=== PATIENT | male | born 1940 | race African-American/Black ===

== ENCOUNTER 2017-03-17 14:33 | Inpatient (IN) | payer OTHER ==
--- NOTE | 2017-03-17 15:01 | PDOC ---
History of Present Illness - General History Source: Patient Exam Limitations: No Limitations - History of Present Illness Initial Comments: 03/17/17 16:40 The patient is a 76 year old male, with a significant past medical history of CHF, HTN, HLD, Atrial Fibrillation, Morbid obesity, Prostate CA, Sleep apnea on O2, Glaucoma BIBA from [facility] s/p Cardiac arrest. As per EMS, the patient was initially seated in PT doing leg exercises when he became unresponsive. Patient was brought back into his room in the [place] and chest compressions were initiated by nursing staff. Down time was between 4-5 minutes. patient was shocked once and ROSC was noted. As per EMS, patient was given 150 mg of Amiodarone in field and was brought into the ED for further evaluation. Upon arrival to the ED, patients (health care proxy) gave consent to intubate over the telephone. 2:48 PM- 20 mg of Etomidate given through IV 2:49 PM- 150 mg of Succinylcholine given through IV 2:50 PM- Patient intubated with 7.5 ET tube, positioned 24 cm at the lip <Kenyatta Reynolds - Last Filed: 03/17/17 17:06> - General History Source: EMS Exam Limitations: Clinical Condition <Faby Saleem - Last Filed: 03/24/17 10:59> - General Chief Complaint: Cardiac Arrest Stated Complaint: RESPIRATORY DISTRESS Time Seen by Provider: 03/17/17 14:40 Past History <Kenyatta Reynolds - Last Filed: 03/17/17 17:06> - Psycho/Social/Smoking Cessation Hx Suicidal Ideation: No Smoking History: Unknown if ever smoked Information on smoking cessation initiated: No Hx Alcohol Use: No Drug/Substance Use Hx: No <Faby Saleem - Last Filed: 03/24/17 10:59> - Past Medical History Allergies/Adverse Reactions: Allergies Allergy/AdvReac Type Severity Reaction Status Date / Time No Known Allergies Allergy Verified 03/17/17 14:59 Home Medications: Ambulatory Orders Allopurinol 300 mg PO DAILY 03/17/17 Digoxin [Lanoxin -] 0.125 mg PO DAILY 03/17/17 Docusate Sodium [Colace -] 300 mg PO HS 03/17/17 Ferrous Sulfate 650 mg PO BID 03/17/17 Furosemide [Lasix -] 80 mg PO DAILY 03/17/17 Latanoprost 0.005% Eye Drops [Xalatan 0.005% Eye Drops -] 1 drop OU HS 03/17/17 Metolazone [Zaroxolyn -] 2.5 mg PO AM 03/17/17 Nystatin Cream [Mycostatin] 1 applic TP BID 03/17/17 Polyethylene Glycol 3350 [Miralax (For Daily Use) -] 17 gm PO DAILY 03/17/17 Sennosides [Evac-U-Gen] 2 tab PO DAILY 03/17/17 Simvastatin [Zocor -] 80 mg PO HS 03/17/17 Sod Lactate/Amm Lact/Pot Lact [Amlactin Ultra Body Cream] 1 applic TP BID Triamcinolone 0.1% Cream [Aristocort] 1 applic TP BID 03/17/17 Warfarin Na [Coumadin -] 7.5 mg PO Q7D 03/17/17 Warfarin Sodium [Coumadin] 5 mg PO ASDIR 03/17/17 Review of Systems - Review of Systems Able to Perform ROS?: No Comments:: 03/17/17 16:40 Unable to obtain ROS due to clinical condition. <Kenyatta Reynolds - Last Filed: 03/17/17 17:06> *Physical Exam - Vital Signs Last Vital Signs Temp Pulse Resp BP Pulse Ox 97.7 F 100 H 20 112/76 100 03/17/17 15:30 03/17/17 16:34 03/17/17 16:34 03/17/17 16:34 03/17/17 16:34 - Physical Exam Comments: 03/17/17 16:41 GENERAL: +Unresponsive. + Intubated with 7.5 ET tube. +Sedated. HEAD: Normal with no signs of trauma. EYES: + Pupils sluggishly responsive. Sclera anicteric, conjunctiva clear. ENT: Ears normal, nares patent, oropharynx clear without exudates. Moist mucous membranes. NECK: Normal range of motion, supple without lymphadenopathy, JVD, or masses. LUNGS: + Breathing spontaneous with eyes open. + Decreased breath sounds. Clear to auscultation bilaterally. No wheezes, and no crackles. HEART:Regular rate and rhythm, normal S1 and S2 without murmur, rub or gallop. ABDOMEN: Soft, nontender, normoactive bowel sounds. No guarding, no rebound. EXTREMITIES: +Bilateral LE diffusely edematous. +Bilateral venous stasis changes. Normal range of motion. No clubbing or cyanosis. No erythema, or tenderness. NEUROLOGICAL: Cranial nerves II through XII grossly intact. No focal neurological deficits. MUSCULOSKELETAL: Back nontender to palpation, no CVA tenderness SKIN: Warm, Dry, normal turgor, no rashes or lesions noted. <Kenyatta Reynolds - Last Filed: 03/17/17 17:06> - Vital Signs Last Vital Signs Temp Pulse Resp BP Pulse Ox 97.5 F L 82 22 109/72 93 L 03/17/17 14:34 03/17/17 14:34 03/17/17 14:34 03/17/17 14:34 03/17/17 14:34 <Faby Saleem - Last Filed: 03/24/17 10:59> Procedures - Intubation Time of Intubation: 14:50 Intubation Method: orotracheal Blade used: Mac Tube Size (Fr): 7.5 Medications: Etomidate, Succinylcholine Tube position @ lip (cm): 24 Tube position confirmed by: Direct visualization Breath Sounds after Intubation: equal Intubation Complications: no complications Post Intubation Xray: Yes <Faby Saleem - Last Filed: 03/24/17 10:59> Heart Score/ECG Review #1 ECG reviewed & interpreted by me at: 15:23 03/17/17 15:23 Paced at 89 bpm <Faby Saleem - Last Filed: 03/24/17 10:59> ED Treatment Course - LABORATORY CBC & Chemistry Diagram: 03/17/17 14:55 03/17/17 14:55 - ADDITIONAL ORDERS Additional order review: Laboratory Results 03/17/17 03/17/17 03/17/17 14:59 14:59 14:55 Sodium Potassium Chloride Carbon Dioxide Anion Gap BUN Creatinine Creat Clearance w eGFR Random Glucose Lactic Acid 1.556 Calcium Phosphorus Magnesium Total Bilirubin AST ALT Alkaline Phosphatase Creatine Kinase Troponin I B-Natriuretic Peptide Total Protein Albumin Urine Color Yellow Urine Appearance Slcloudy Urine pH 5.0 Ur Specific [place] 1.012 Urine Protein Negative Urine Glucose (UA) Negative Urine Ketones Negative Urine Blood Negative Urine Nitrite Negative Urine Bilirubin Negative Urine Urobilinogen Negative Ur Leukocyte Esterase Negative Opiates Screen Negative Methadone Screen Negative Barbiturate Screen Negative Phencyclidine Screen Negative Ur Amphetamines Screen Negative MDMA (Ecstasy) Screen Negative Benzodiazepines Screen Negative Cocaine Screen Negative U Marijuana (THC) Screen Negative 03/17/17 03/17/17 14:55 14:55 Sodium 138 Potassium 5.9 H Chloride 102 Carbon Dioxide 28 Anion Gap 8 BUN 101 H Creatinine 2.9 H Creat Clearance w eGFR 21.15 Random Glucose 162 H Lactic Acid Calcium 8.0 L Phosphorus 5.1 H Magnesium 3.6 H Total Bilirubin 0.3 AST 45 H ALT 13 Alkaline Phosphatase 67 Creatine Kinase 149 Troponin I 0.03 B-Natriuretic Peptide 6514.39 H Total Protein 7.1 Albumin 3.2 L Urine Color Urine Appearance Urine pH Ur Specific [place] Urine Protein Urine Glucose (UA) Urine Ketones Urine Blood Urine Nitrite Urine Bilirubin Urine Urobilinogen Ur Leukocyte Esterase Opiates Screen Methadone Screen Barbiturate Screen Phencyclidine Screen Ur Amphetamines Screen MDMA (Ecstasy) Screen Benzodiazepines Screen Cocaine Screen U Marijuana (THC) Screen 03/17/17 14:55 RBC 3.80 L MCV 86.9 MCHC 30.4 L RDW 19.6 H MPV 9.0 Neutrophils % 56.4 Lymphocytes % 33.8 Monocytes % 5.3 Eosinophils % 3.3 Basophils % 1.2 - Medications Given in the ED: ED Medications Discontinued Medications Generic Name Dose Route Start Last Admin Trade Name Brodieq PRN Reason Stop Dose Admin Etomidate 20 mg 03/17/17 15:21 03/17/17 14:48 Amidate - IVPUSH 03/17/17 15:22 20 mg ONCE ONE Administration Sodium Chloride 1,000 mls @ 1,000 mls/hr 03/17/17 15:21 03/17/17 15:00 Normal Saline - IV 03/17/17 16:20 1,000 mls/hr ASDIR STA Administration Succinylcholine Chloride 150 mg 03/17/17 15:21 03/17/17 14:49 Quelicin - IVPUSH 03/17/17 15:22 150 mg ONCE ONE Administration <Kenyatta Reynolds - Last Filed: 03/17/17 17:06> - LABORATORY CBC & Chemistry Diagram: 03/24/17 05:30 03/24/17 05:30 <Faby Saleem - Last Filed: 03/24/17 10:59> Medical Decision Making - Critical Care Time Total Critical Care Time (minutes): 120 Critical Care Statement: The care of this patient involved high complexity decision making to prevent further life threatening deterioration of the patient 's condition and/or to evalute & treat vital organ system(s) failure or risk of failure. - Medical Decision Making A portion of this note was documented by scribe services under my direction. I have reviewed the details of the note, within reason, and agree with the documentation with the following case summary and management plan written by me. Nursing documentation reviewed and incorporated into medical decision making Pt brought in to the ER via EMS s/p cardiac arrest Pt was in physical therapy while doing leg exercises, he collapsed He was brought to his room doing compressions The 03/17/17 14:56 Call placed to pt No response Message left Call placed to senior care pt nurse states, he is FULL CODE Pt intubated via DL Call placed to ICU/Dr Forde Pt is a candidate for cooling single attempt Bilateral breath sounds appreciated (+) color change of capnography PT BP low Will bolus Will re assess Going to CT of head Call placed to Dr Forde again Would like paced interrogated 03/17/17 15:39 Call placed to [employer] They do not have record of this patient 03/17/17 15:42 03/17/17 15:45 Call placed to pt cut out machine operator (Dr Pat Flores: [phone]) Received call back from [employer] rep, he is no Easi[employer] Credit Card To Get Approved For 03/17/17 16:14 Laboratory Tests 03/17/17 03/17/17 03/17/17 14:55 14:55 14:55 WBC 5.9 Hgb 10.1 L Hct 33.1 L Plt Count 146 Neutrophils % 56.4 Lymphocytes % 33.8 Sodium 138 Potassium 5.9 H Chloride 102 Carbon Dioxide 28 Anion Gap 8 BUN 101 H Creatinine 2.9 H Random Glucose 162 H Lactic Acid Phosphorus 5.1 H Magnesium 3.6 H Creatine Kinase 149 Troponin I 0.03 B-Natriuretic Peptide 6514.39 H 03/17/17 14:55 WBC Hgb Hct Plt Count Neutrophils % Lymphocytes % Sodium Potassium Chloride Carbon Dioxide Anion Gap BUN Creatinine Random Glucose Lactic Acid 1.556 Phosphorus Magnesium Creatine Kinase Troponin I B-Natriuretic Peptide Per discussion with this patient's cut out machine operator RV dysfunctional, pulmonary hypertension Non ischemic coronaries Severe CHF Pt has poor quality of life During last admission, had discussion about palliative care He was given all the information and then opted to not be on palliative care 03/17/17 16:37 CXR: ETT in position, cardiomegaly, large left pleural effusion Pt remains unresponsive Pt coughing , gagging Placed on propofol ICU resident in the ER to see this patient 03/17/17 16:47 I have added fentanyl for sedation <Faby Saleem - Last Filed: 03/24/17 10:59> *DC/Admit/Observation/Transfer - Attestations Scribe Attestion: 03/17/17 16:52 Documentation prepared by Kenyatta Reynolds, acting as medical record librarian for Faby Saleem MD/DO. <Kenyatta Reynolds - Last Filed: 03/17/17 17:06> - Discharge Dispostion Admit: Yes <Faby Saleem - Last Filed: 03/24/17 10:59> Diagnosis at time of Disposition: Cardiac arrest - Discharge Dispostion Condition at time of disposition: Guarded - Referrals
[2017-03-17 15:06] LABS: BASOPHIL 1.2 % (0-2.0); EOSINOPHIL 3.3 % (0-4.5); MCH 26.4 pg (25.7-33.7); MCHC 30.4 g/dl (32.0-35.9); MEAN CELL VOLUME 86.9 fl (80-96); NEUTROPHILS 56.4 % (42.8-82.8); PLATELET COUNT 146 K/MM3 (134-434); RDW 19.6 % (11.9-15.9); WHITE BLOOD COUNT 5.9 K/mm3 (4.0-10.0)
[2017-03-17 15:16] LABS: URINE APPEARANCE SLCLOUDY; URINE BILIRUBIN NEGATIVE (NEGATIVE); URINE BLOOD NEGATIVE (NEGATIVE); URINE COLOR YELLOW; URINE GLUCOSE (UA) NEGATIVE (NEGATIVE); URINE KETONE NEGATIVE (NEGATIVE); URINE LEUK ESTERASE NEGATIVE (NEGATIVE); URINE NITRITE NEGATIVE (NEGATIVE); URINE PROTEIN NEGATIVE (NEGATIVE); URINE UROBILINOGEN NEGATIVE E.U./dl (0.2-1.0)
[2017-03-17 15:21] LABS: URINE MARIJUANA THC NEGATIVE ng/ml (CUTOFF=50)
[2017-03-17] MEDS ORDERED: SODIUM CHLORIDE 1,000 ML IV STA (15:21)
[2017-03-17] MEDS ORDERED: SUCCINYLCHOLINE CHLORIDE 200 MG/10 ML VIAL IVPUSH ONE (15:21)
[2017-03-17] MEDS ORDERED: ETOMIDATE 20 MG/10 ML AMPUL IVPUSH ONE (15:21)
[2017-03-17 15:28] LABS: ALBUMIN 3.2 g/dl (3.4-5.0); BILIRUBIN,TOTAL 0.3 mg/dL (0.2-1.0); COCKROFT - GAULT 40.4; CREATININE 2.9 mg/dL (0.7-1.3); TOT PROT 7.1 g/dl (6.4-8.2)
[2017-03-17 15:30] LABS: TROPONIN I 0.03 ng/ml (0.00-0.05)
[2017-03-17] MEDS: PROPOFOL 100 ML IVPB SCH ×2 (15:30→22:46)
[2017-03-17 15:32] LABS: PHOSPHOROUS 5.1 mg/dL (2.5-4.9)
[2017-03-17] MEDS ORDERED: PROPOFOL 100 ML ONE (15:34)
[2017-03-17 15:36] LABS: MAGNESIUM 3.6 mg/dL (1.8-2.4)
[2017-03-17 16:32] LABS: INR 3.3 (0.82-1.09); PROTHROMBIN TIME (PATIENT) 37.2 SEC (9.98-11.88)
[2017-03-17 16:35] LABS: ACTIVATED PTT 41.1 SECONDS (26.9-34.4)
[2017-03-17] MEDS ORDERED: CALCIUM GLUCONATE 10% - 1,000 MG/10 ML VIAL IVPB ONE (16:35)
[2017-03-17] MEDS ORDERED: FENTANYL INJECTION 500 MCG in DEXTROSE 5%-WATER - 90 ML IVPB SCH ×2 (17:00→17:27)
[2017-03-17] MEDS ORDERED: CALCIUM GLUCONATE 10% - 1,000 MG/10 ML VIAL ONE (17:24)
[2017-03-17] MEDS ORDERED: AMIODARONE HCL INJECTION 450 MG in DEXTROSE 5%-WATER - 241 ML IVPB SCH (17:45)
[2017-03-17] MEDS ORDERED: DOPAMINE 400 MG/D5W - 250 ML IVPB ONE (18:12)
--- NOTE | 2017-03-17 18:14 | CON.CARD ---
[id number] of Present Illness Chief Complaint: Pt is intubated and does not respond to verbal or physical stimuli History of Present Illness: The patient is a 76 year old black male, with a significant past medical history of diastolic CHF (severely reduced RVEF of uncertain etiology; severely dilated RV on 02/2017 ECHO, per pt's dye boarding machine operator at [facility]), (non- obstructive CAD by 2008 coronary angiogram), Medtronic "biventricular pacemaker , COPD, HTN, HLD, Atrial Fibrillation, renal insufficiency, Morbid obesity, Prostate CA, Sleep apnea on O2, generalzied weakness (wheelchair-bound), Glaucoma BIBA from [facility] s/p Cardiac arrest. As per EMS, the patient was initially seated in PT doing leg exercises when he became unresponsive. Patient was brought back into his room in the [place] and chest compressions were initiated by nursing staff. Down time was between 4-5 minutes. patient was shocked once and ROSC was noted. As per EMS, patient was given 150 mg of Amiodarone in the field and was brought into the ED for further evaluation. Upon arrival to the ED, patients (health care proxy) gave consent to intubate over the telephone. 2:48 PM- 20 mg of Etomidate given through IV 2:49 PM- 150 mg of Succinylcholine given through IV 2:50 PM- Patient intubated with 7.5 ET tube, positioned 24 cm at the lip Pt's says pt is followed closely by [facility] and cardiac groups. I spoke by telephone with pt's dye boarding machine operator, who provided much of the above history. 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 Cardio/Vascular: Yes: AFIB, CHF, HTN, Pulmonary Hypertension Pulmonary: Yes: COPD Heme/Onc: Yes: Anemia - Alcohol/Substance Use Hx Alcohol Use: No - Smoking History Smoking history: Unknown if ever smoked - Social History Usual Living Arrangement: With Spouse Home Medications - Allergies Allergies/Adverse Reactions: Allergies Allergy/AdvReac Type Severity Reaction Status Date / Time No Known Allergies Allergy Verified 03/17/17 14:59 - Home Medications Home Medications: Ambulatory Orders Allopurinol 300 mg PO DAILY 03/17/17 Digoxin [Lanoxin -] 0.125 mg PO DAILY 03/17/17 Docusate Sodium [Colace -] 300 mg PO HS 03/17/17 Ferrous Sulfate 650 mg PO BID 03/17/17 Furosemide [Lasix -] 80 mg PO DAILY 03/17/17 Latanoprost 0.005% Eye Drops [Xalatan 0.005% Eye Drops -] 1 drop OU HS 03/17/17 Metolazone [Zaroxolyn -] 2.5 mg PO AM 03/17/17 Nystatin Cream [Mycostatin] 1 applic TP BID 03/17/17 Polyethylene Glycol 3350 [Miralax (For Daily Use) -] 17 gm PO DAILY 03/17/17 Sennosides [Evac-U-Gen] 2 tab PO DAILY 03/17/17 Simvastatin [Zocor -] 80 mg PO HS 03/17/17 Sod Lactate/Amm Lact/Pot Lact [Amlactin Ultra Body Cream] 1 applic TP BID Triamcinolone 0.1% Cream [Aristocort] 1 applic TP BID 03/17/17 Warfarin Na [Coumadin -] 7.5 mg PO Q7D 03/17/17 Warfarin Sodium [Coumadin] 5 mg PO ASDIR 03/17/17 Review of Systems - Review of Systems Constitutional: reports: Weakness Cardiovascular: reports: Shortness of Breath Respiratory: reports: SOB on Exertion Neurological: reports: Weakness Psychiatric: reports: Altered Sleep Pattern - Risk Factors Known Risk Factors: Yes: Age, Gender, Hypercholesterolemia, Hypertension, Physical Inactivity, Race, Other (severe pulmonary HTN; severe RV dysfunction) Vital Signs: Vital Signs Temperature 97.7 F 03/17/17 15:30 Pulse Rate 88 03/17/17 18:07 Respiratory Rate 20 03/17/17 18:07 Blood Pressure 86/42 03/17/17 18:07 O2 Sat by Pulse Oximetry (%) 100 03/17/17 16:34 Constitutional: Yes: Other (intubated; unresponsive) Eyes: Yes: Other (conjunctiva edematous and reddened) HENT: Yes: Other (intubated) Neck: Yes: Decreased ROM Respiratory: Yes: Diminished (virtually no breath sounds on left side), Rhonchi Gastrointestinal: Yes: Soft Renal/: No: Anuria Cardiovascular: Yes: Tachycardia JVD: Yes Carotid Bruit: No PMI: Displaced Heart Sounds: Yes: S1, S2 Murmur: Yes: Systolic Murmur, Grade 2 (RSB-->apex) Musculoskeletal: Yes: Muscle Weakness Extremities: Yes: Cool Edema: Yes Edema: LLE: 3+, RLE: 3+ Peripheral Pulses WNL: No Peripheral Pulses: 1+ Left Doralis Pedis, 1+ Right Dorsalis Pedis Integumentary: Yes: Venous Stasis Changes, Other (hyperpigmented, roughened, edematous LE's to knees) Neurological: Yes: Unresponsive, Weakness Psychiatric: Yes: Other - Other Data Labs, Other Data: INR, PTT INR 3.30 (0.82-1.09) H 03/17/17 14:55 Echo: Other (ECHO from [facility] 02/2017: normal LVEF; marked RVEF reduction in function; markedly dilated RV; severe TR, with severe pulmonary HTN) Prior Cardiac Procedures: Cardiac Catheterization Ejection Fraction %: LVEF > or = 40 % Imaging - Results Chest X-ray: Image Reviewed (near "white-out" of left hemithorax) EKG: Image Reviewed (ventricular pacing) Problem List - Problems (1) Cardiac arrest Assessment/Plan: Pt reportedly received one shock on AED order. Now intubated; EKG shows ventricular pacing.; no arrhythmias on telemetry. White-out of left hemithorax. Consider therapeutic hypothermia. Medtronic "biventricular" PPM, per pt's dye boarding machine operator; f/u interrogation. Keep K+ 4-4.5, Mg 2-2.3. F/u Is and Os, BP. TNI 0.03; f/u serially. (Hx non-obstructive CAD on coronary angiogram 2008). Per pt's dye boarding machine operator, pt has had a long course of nonischemic cardiomyopathy ( normal LVEF; severely reduced RVEF, severely dilated RV, severe pulmonary HTN) of unknown etiology; chronic renal dysfunction (BUN in 90s-100/BUN 2-3), essentially wheelchair-bound. Per dye boarding machine operator, pt and family reportedly had discussion with palliative care team on last admission 02/2017 because of his poor health and prognosis, but family recieved the information with making a decision, and palliative care was "withdrawn". Hx AF; INR 3.3. On digoxin at home; f/u level, and keep 0.5-1.0. Pt given amiodarone in the field. Elevated electrolytes, BUN/Cr; f/u with ceramic research engineer. Code(s): I46.9 - CARDIAC ARREST, CAUSE UNSPECIFIED (2) Acute on chronic diastolic CHF (congestive heart failure) Assessment/Plan: see under "cardiac arrest'. Code(s): I50.33 - ACUTE ON CHRONIC DIASTOLIC (CONGESTIVE) HEART FAILURE (3) Hyperlipidemia Assessment/Plan: high-dose statin. Code(s): E78.5 - HYPERLIPIDEMIA, UNSPECIFIED (4) Sleep apnea Code(s): G47.30 - SLEEP APNEA, UNSPECIFIED (5) HTN (hypertension) Code(s): I10 - ESSENTIAL (PRIMARY) HYPERTENSION (6) 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 hypertension Assessment/Plan: Hx COPD; severe RV failure. White-out of left lung. F/u Is and Os. Intubated. F/u with synthetic cloth binding cutter. Code(s): I27.2 - OTHER SECONDARY PULMONARY HYPERTENSION (7) Hyperkalemia Assessment/Plan: f/u electrolytes closely (K, Mg, and PO4 elevated). Code(s): E87.5 - HYPERKALEMIA (8) Anemia Code(s): D64.9 - ANEMIA, UNSPECIFIED
--- NOTE | 2017-03-17 18:23 | HP ---
CHIEF COMPLAINT:Cardiac arrest HISTORY OF PRESENT ILLNESS: History taken from ED as patient was intubated and sedated by the time I saw him. 76M PMH of CHF s/p Biventricular pacemaker, HTN, HLD, Atrial Fibrillation, Morbid obesity, Prostate CA, Sleep apnea on O2, Morbid obesity, Glaucoma BIBA from [facility] s/p Cardiac arrest. patient was doing physical thewrapy leg exercises while seated and then all of a sudden became unresponsive. ACLS protocol was initiated and he was also shocked once and given amiodarone once as well ans there was ROSC. As per ED charts, patient was given 150 mg of Amiodarone in field and was brought into the ED for further evaluation. Per the family the patient was apparently being considered for pallative care during his last hospitalization as he has poor quality of life and poor functional status. the patient declined palliative care at that time and wanted full treatment. Patient was intubated in the ED and started on hypothermia protocol. Patient is wheelchair bound ER course was notable for: (1)Intubated XR (2)Labs ABG CXR (3)Hypothermia protocol Recent Travel:Denies PAST MEDICAL HISTORY:as above Social History: could not get social information Family History: Allergies No Known Allergies Allergy (Verified 03/17/17 14:59) HOME MEDICATIONS: Home Medications Medication Instructions Recorded Metolazone [Zaroxolyn -] 2.5 mg PO AM 03/17/17 Nystatin Cream [Mycostatin] 1 applic TP BID 03/17/17 Triamcinolone 0.1% Cream 1 applic TP BID 03/17/17 [Aristocort] REVIEW OF SYSTEMS Patient intubated and sedated could not do review of systems PHYSICAL EXAMINATION Vital Signs - 24 hr 03/17/17 03/17/17 16:34 18:07 Pulse Rate [ 100 H 88 Apical] Respiratory 20 20 Rate Blood Pressure 112/76 86/42 [Left Arm] O2 Sat by Pulse 100 Oximetry (%) GENERAL: intubated sedated EYES: Pupils equal, round and reactive to light. Pinpoint EARS, NOSE, THROAT: Dry mucous membranes. NECK: Normal range of motion, supple without lymphadenopathy, JVD, or masses. LUNGS: Breath sounds equal, clear to auscultation bilaterally. No wheezes, and no crackles. No accessory muscle use. HEART: Regular rate and rhythm, normal S1 and S2 without murmur, rub or gallop. ABDOMEN: Soft, nontender, not distended, umbilical hernia MUSCULOSKELETAL: Normal range of motion at all joints. No bony deformities or tenderness. No CVA tenderness. UPPER EXTREMITIES: no edema. LOWER EXTREMITIES: 2+ pitting edema with evidence of chronic venous stasis SKIN: chronic venous stasis Laboratory Results - last 24 hr 03/17/17 03/17/17 03/17/17 14:55 14:55 14:55 WBC 5.9 RBC 3.80 L Hgb 10.1 L Hct 33.1 L MCV 86.9 MCHC 30.4 L RDW 19.6 H Plt Count 146 MPV 9.0 Neutrophils % 56.4 Lymphocytes % 33.8 Monocytes % 5.3 Eosinophils % 3.3 Basophils % 1.2 INR 3.30 H PTT (Actin FS) 41.1 H Sodium Potassium Chloride Carbon Dioxide Anion Gap BUN Creatinine Creat Clearance w eGFR Random Glucose Lactic Acid Calcium Phosphorus 5.1 H Magnesium 3.6 H Total Bilirubin AST ALT Alkaline Phosphatase Creatine Kinase Troponin I B-Natriuretic Peptide 6514.39 H Total Protein Albumin Urine Color Urine Appearance Urine pH Ur Specific [place] Urine Protein Urine Glucose (UA) Urine Ketones Urine Blood Urine Nitrite Urine Bilirubin Urine Urobilinogen Ur Leukocyte Esterase Opiates Screen Methadone Screen Barbiturate Screen Phencyclidine Screen Ur Amphetamines Screen MDMA (Ecstasy) Screen Benzodiazepines Screen Cocaine Screen U Marijuana (THC) Screen 03/17/17 03/17/17 03/17/17 14:55 14:55 14:59 WBC RBC Hgb Hct MCV MCHC RDW Plt Count MPV Neutrophils % Lymphocytes % Monocytes % Eosinophils % Basophils % INR PTT (Actin FS) Sodium 138 Potassium 5.9 H Chloride 102 Carbon Dioxide 28 Anion Gap 8 BUN 101 H Creatinine 2.9 H Creat Clearance w eGFR 21.15 Random Glucose 162 H Lactic Acid 1.556 Calcium 8.0 L Phosphorus Magnesium Total Bilirubin 0.3 AST 45 H ALT 13 Alkaline Phosphatase 67 Creatine Kinase 149 Troponin I 0.03 B-Natriuretic Peptide Total Protein 7.1 Albumin 3.2 L Urine Color Yellow Urine Appearance Slcloudy Urine pH 5.0 Ur Specific [place] 1.012 Urine Protein Negative Urine Glucose (UA) Negative Urine Ketones Negative Urine Blood Negative Urine Nitrite Negative Urine Bilirubin Negative Urine Urobilinogen Negative Ur Leukocyte Esterase Negative Opiates Screen Methadone Screen Barbiturate Screen Phencyclidine Screen Ur Amphetamines Screen MDMA (Ecstasy) Screen Benzodiazepines Screen Cocaine Screen U Marijuana (THC) Screen 03/17/17 14:59 WBC RBC Hgb Hct MCV MCHC RDW Plt Count MPV Neutrophils % Lymphocytes % Monocytes % Eosinophils % Basophils % INR PTT (Actin FS) Sodium Potassium Chloride Carbon Dioxide Anion Gap BUN Creatinine Creat Clearance w eGFR Random Glucose Lactic Acid Calcium Phosphorus Magnesium Total Bilirubin AST ALT Alkaline Phosphatase Creatine Kinase Troponin I B-Natriuretic Peptide Total Protein Albumin Urine Color Urine Appearance Urine pH Ur Specific [place] Urine Protein Urine Glucose (UA) Urine Ketones Urine Blood Urine Nitrite Urine Bilirubin Urine Urobilinogen Ur Leukocyte Esterase Opiates Screen Negative Methadone Screen Negative Barbiturate Screen Negative Phencyclidine Screen Negative Ur Amphetamines Screen Negative MDMA (Ecstasy) Screen Negative Benzodiazepines Screen Negative Cocaine Screen Negative U Marijuana (THC) Screen Negative CXR large left pleural effusion Head CT: no acute pathology EKG: ASSESSMENT/PLAN: 76M with multiple medical problems and poor functional status presents to the ED from the intermediate for cardiac arrest. Cardiac arrest: Admit to ICU Hypothermia protocol cardiology consult continue sedation will need to be paralyzed ABG per hypothermia protocol pressors PRN Trend cardiac enzymes Echo Needs STAT ABG continue ventilatory support CHF: Cardiology consult BNP elevated Echo no diuresis for now contact [employer] to evaluate Biventricular pacemaker HTN: Patient hypotensive at this time hold antihypertensives needs pressors Afib: patient on coumadin INR supratherapeutic hold coumadin for now Acute renal failure possible chronic kidney disease:likely from cardiac arrest leading to hypoperfusion no baseline known no previous visits will try to find more history renally dose all medications HLD: hold medications for now FEN: NS @ 100ml/hr hyperkalemia-treated in ED npo PPx: INR aupratherapeutic protonix PT consult when able to participate Visit type - Emergency Visit Emergency Visit: Yes ED Registration Date: 03/17/17 Care time: The patient presented to the Emergency Department on the above date and was hospitalized for further evaluation of their emergent condition. - New Patient This patient is new to me today: Yes Date on this admission: 03/17/17 - Critical Care Critical Care patient: Yes Total Critical Care Time (in minutes): 60 Critical Care Statement: The care of this patient involved high complexity decision making to prevent further life threatening deterioration of the patient 's condition and/or to evalute & treat vital organ system(s) failure or risk of failure.
--- NOTE | 2017-03-17 18:57 | PN ---
Teaching Attending Note Name of Resident: Anthony Lawton ATTENDING PHYSICIAN STATEMENT I saw and evaluated the patient. I reviewed the resident's note and discussed the case with the resident. I agree with the resident's findings and plan as documented. SUBJECTIVE: Patient is intubated sedated in Icu s/p cardiac arrest on hypothermic protocol OBJECTIVE: Vital Signs Temperature 97.0 F L 03/17/17 18:30 Pulse Rate 88 03/17/17 18:30 Respiratory Rate 20 03/17/17 18:30 Blood Pressure 96/55 03/17/17 18:30 O2 Sat by Pulse Oximetry (%) 100 03/17/17 18:30 CBCD WBC 5.9 K/mm3 (4.0-10.0) 03/17/17 14:55 RBC 3.80 M/mm3 (4.00-5.60) L 03/17/17 14:55 Hgb 10.1 GM/dL (11.7-16.9) L 03/17/17 14:55 Hct 33.1 % (35.4-49) L 03/17/17 14:55 MCV 86.9 fl (80-96) 03/17/17 14:55 MCHC 30.4 g/dl (32.0-35.9) L 03/17/17 14:55 RDW 19.6 % (11.9-15.9) H 03/17/17 14:55 Plt Count 146 K/MM3 (134-434) 03/17/17 14:55 MPV 9.0 fl (7.5-11.1) 03/17/17 14:55 CMP Sodium 138 mmol/L (136-145) 03/17/17 14:55 Potassium 5.9 mmol/L (3.5-5.1) H 03/17/17 14:55 Chloride 102 mmol/L (98-107) 03/17/17 14:55 Carbon Dioxide 28 mmol/L (21-32) 03/17/17 14:55 Anion Gap 8 (8-16) 03/17/17 14:55 BUN 101 mg/dL (7-18) H 03/17/17 14:55 Creatinine 2.9 mg/dL (0.7-1.3) H 03/17/17 14:55 Creat Clearance w eGFR 21.15 (>60) 03/17/17 14:55 Random Glucose 162 mg/dL (74-106) H 03/17/17 14:55 Calcium 8.0 mg/dL (8.5-10.1) L 03/17/17 14:55 Total Bilirubin 0.3 mg/dL (0.2-1.0) 03/17/17 14:55 AST 45 U/L (15-37) H 03/17/17 14:55 ALT 13 U/L (12-78) 03/17/17 14:55 Alkaline Phosphatase 67 U/L (45-117) 03/17/17 14:55 Total Protein 7.1 g/dl (6.4-8.2) 03/17/17 14:55 Albumin 3.2 g/dl (3.4-5.0) L 03/17/17 14:55 CARDIAC ENZYMES Creatine Kinase 149 IU/L (39-308) 03/17/17 14:55 Troponin I 0.03 ng/ml (0.00-0.05) 03/17/17 14:55 Current Medications Generic Name Dose Route Start Last Admin Trade Name Freq PRN Reason Stop Dose Admin Chlorhexidine Gluconate 1 applic 03/17/17 22:00 Hibiclens For Decolonization - TP HS SARAH Propofol 100 mls @ 4.082 mls/hr 03/17/17 15:30 03/17/17 17:00 Diprivan - IVPB 30 mcg/kg/min TITR SARAH Titration Protocol 5 MCG/KG/MIN Vecuronium [place] 50 mg/ 250 mls @ 40.82 mls/hr 03/17/17 17:30 Dextrose IVPB TITR SARAH 1 MCG/KG/MIN Sodium Chloride 1,000 mls @ 100 mls/hr 03/17/17 18:30 Normal Saline - IV ASDIR SARAH Midazolam HCl 100 mg/ Sodium 100 mls @ 2 mls/hr 03/17/17 18:45 Chloride IVPB TITR SARAH Protocol 2 MG/HR Mupirocin 1 applic 03/17/17 22:00 Bactroban Ointment (For Decolonization) - NS 03/22/17 21:59 BID SARAH Pantoprazole Sodium 40 mg 03/18/17 10:00 Protonix 40mg Ivpb (Pre-Docked) IVPB DAILY [facility] Home Medications Medication Instructions Recorded Allopurinol 300 mg PO DAILY 03/17/17 Digoxin [Lanoxin -] 0.125 mg PO DAILY 03/17/17 Docusate Sodium [Colace -] 300 mg PO HS 03/17/17 Doxycycline Hyclate 100 mg PO BID 03/17/17 Ferrous Sulfate 650 mg PO BID 03/17/17 Furosemide [Lasix -] 80 mg PO DAILY 03/17/17 Latanoprost 0.005% Eye Drops 1 drop OU HS 03/17/17 [Xalatan 0.005% Eye Drops -] Metolazone [Zaroxolyn -] 2.5 mg PO AM 03/17/17 Nystatin Cream [Mycostatin] 1 applic TP BID 03/17/17 Polyethylene Glycol 3350 [Miralax 17 gm PO DAILY 03/17/17 (For Daily Use) -] Simvastatin [Zocor -] 80 mg PO HS 03/17/17 Sod Lactate/Amm Lact/Pot Lact 1 applic TP BID 03/17/17 [Amlactin Ultra Body Cream] Triamcinolone 0.1% Cream 1 applic TP BID 03/17/17 [Aristocort] Warfarin Na [Coumadin -] 7.5 mg PO Q7D 03/17/17 Chest: intubated sedated, positive for pacemaker Heart: S1S2 positive, SEM2/6 -->apex, RRR INR, PTT INR 3.30 (0.82-1.09) H 03/17/17 14:55 - Chest X-ray: Image Reviewed (near "white-out" of left hemithorax)Biventricular pacemaker EKG: Image Reviewed (ventricular pacing) Head CT: no acute pathology Echo: Other (ECHO from [place] 02/2017: normal LVEF; marked RVEF reduction in function; markedly dilated RV; severe TR, with severe pulmonary HTN) Prior Cardiac Procedures: Cardiac Catheterization Ejection Fraction %: LVEF > or = 40 % ASSESSMENT/PLAN: 76M with multiple medical problems and poor functional status [facility]. # Acute Cardiac arrest: Admit to ICU, Hypothermia protocol, cardio consult appreciated Dr.Mascetelli MIR ,pressors PRN , CE q6x3, EKG,Echo , continue ventilatory support # Biventricular [facility]: [facility] [employer] , [facility] # Large left pleural effusion (left hemithorax opacification ) pulmonary , need IR thoracocentesis or ICU possible pigtail # CHF: Cardiology consult ,BNP elevated ;Echo ,no diuresis for now #HTN: Neosynephrine if needed or as per ICU team. hold antihypertensives #Afib: with rate controlled ,on coumadin INR of 3.30, INR supratherapeutic , hold coumadin for now # Acute renal failure over chronic as per , patient has previous kidney failure but was stable as per , nephro if needed DVT Px: Supratherapeutic INR check INR in am
[2017-03-17] MEDS: VECURONIUM BROMIDE 50 MG in DEXTROSE 5%-WATER - 250 ML IVPB SCH (19:21)
[2017-03-17 19:29] LABS: ARTERIAL BLD GAS O2 SATURATION 98.1 % (90-98.9); ARTERIAL BLOOD GAS BASE EXCESS 3.3 meq/l (-2-2); ARTERIAL BLOOD GAS HCO3 26.7 meq/L (22-26); ARTERIAL BLOOD GAS PO2 80.7 mmHg (70-100); ARTERIAL BLOOD GAS pH 7.47 (7.35-7.45)
[2017-03-17 19:30] LABS: ALLENS TEST POSITIVE; ART PUNCT SITE RIGHT RADIAL; PT. ON O2? YES
[2017-03-17 19:31] LABS: LPM/O2% 40%; MECH. VENT. YES; TYPE OF O2 MECHANICAL VENT; VENT RATE 14; VT/PRESS 550ML
[2017-03-17] MEDS: MIDAZOLAM 100 MG in SODIUM CHLORIDE 100 ML IVPB SCH (19:32)
[2017-03-17] MEDS: SODIUM CHLORIDE 1,000 ML IV SCH (19:32)
[2017-03-17 20:49] VITALS: BMI 43.7
[2017-03-17 20:57] LABS: TROPONIN I 0.32 ng/ml (0.00-0.05)
--- NOTE | 2017-03-17 21:00 | CONSULT ---
Consult Consult Specialty:: Pulm/Critical Care Medicine Reason for Consultation:: s/p arrest admitted to ICU - History of Present Illness Chief Complaint: S/p Arrest, intubated, with cooling protocol post arrest History of Present Illness: This is a 76 y/o male with significant pmhx of CHF with BI-V PPM, HTN, HLD, Afib on warfarin, Morbid obesity, Prostate CA, Sleep apnea and glaucoma who was BIBA from [facility] s/p witnessed cardiac arrest during physical therapy leg exercises. ACLS initiated and pt was shocked x1 and given Amio 150x1 with ROSC. Pt was brought in and cooling protocol post arrest initiated. Pt admitted to ICU for continuation of cooling protocol. - History Source History Provided By: Medical Record Limitations to Obtaining History: Clinical Condition - Past Medical History [employer]: No: Dementia Cardio/Vascular: Yes: AFIB, CHF, HTN, Pulmonary Hypertension. No: Deep Vein Thrombosis Pulmonary: Yes: COPD - Alcohol/Substance Use Hx Alcohol Use: No (Unable to obtain Pt intubated and sedated) - Smoking History Smoking history: Unknown if ever smoked (Pt intubated and sedated) - Social History Usual Living Arrangement: With Spouse Home Medications - Allergies Allergies/Adverse Reactions: Allergies Allergy/AdvReac Type Severity Reaction Status Date / Time No Known Allergies Allergy Verified 03/17/17 14:59 - Home Medications Home Medications: Ambulatory Orders Allopurinol 300 mg PO DAILY 03/17/17 Digoxin [Lanoxin -] 0.125 mg PO DAILY 03/17/17 Docusate Sodium [Colace -] 300 mg PO HS 03/17/17 Ferrous Sulfate 650 mg PO BID 03/17/17 Furosemide [Lasix -] 80 mg PO DAILY 03/17/17 Latanoprost 0.005% Eye Drops [Xalatan 0.005% Eye Drops -] 1 drop OU HS 03/17/17 Metolazone [Zaroxolyn -] 2.5 mg PO AM 03/17/17 Nystatin Cream [Mycostatin] 1 applic TP BID 03/17/17 Polyethylene Glycol 3350 [Miralax (For Daily Use) -] 17 gm PO DAILY 03/17/17 Sennosides [Evac-U-Gen] 2 tab PO DAILY 03/17/17 Simvastatin [Zocor -] 80 mg PO HS 03/17/17 Sod Lactate/Amm Lact/Pot Lact [Amlactin Ultra Body Cream] 1 applic TP BID Triamcinolone 0.1% Cream [Aristocort] 1 applic TP BID 03/17/17 Warfarin Na [Coumadin -] 7.5 mg PO Q7D 03/17/17 Warfarin Sodium [Coumadin] 5 mg PO ASDIR 03/17/17 Family Disease History - Family Disease History Family History: Unable to Obtain (Pt intubated and sedated) Review of Systems Unable to obtain ROS, reason: Pt intubated and sedated Physical Exam Vital Signs: Vital Signs Temperature 96.8 F L 03/17/17 20:38 Pulse Rate 64 03/17/17 20:38 Respiratory Rate 18 03/17/17 20:38 Blood Pressure 110/70 03/17/17 20:38 O2 Sat by Pulse Oximetry (%) 95 03/17/17 20:38 Constitutional: Yes: No Distress, Other (Intubated and Sedated) HENT: Yes: Atraumatic, Normocephalic Neck: Yes: Supple, Trachea Midline Cardiovascular: Yes: Regular Rate and Rhythm, Murmur, S1, S2 Respiratory: Yes: Mechanically Ventilated, Other (Slightly diminished to b/l posterior bases; clear to anterior chest wall) Gastrointestinal: Yes: Soft, Abdomen, Obese, Hypoactive Bowel Sounds ...Rectal Exam: Yes: Deferred Renal/: Yes: [place] Present Extremities: Yes: Cool Edema: LUE: 2+, RUE: 2+, LLE: 4+, RLE: 4+ Peripheral Pulses WNL: Yes Integumentary: Yes: Venous Stasis Changes Wound/Incision: Yes: Clean/Dry, Steri Strips Neurological: Yes: Other (Paralyzed and sedated) Labs: ABG Results ABG pH 7.47 (7.35-7.45) H 03/17/17 19:15 ABG pCO2 at Pt Temp 37.0 mmHg (35-45) 03/17/17 19:15 ABG pO2 at Pt Temp 80.7 mmHg (70-100) 03/17/17 19:15 ABG HCO3 26.7 meq/L (22-26) H 03/17/17 19:15 ABG O2 Sat (Measured) 98.1 % (90-98.9) 03/17/17 19:15 ABG O2 Content 12.2 % vol (15-22) L 03/17/17 19:15 ABG Base Excess 3.3 meq/l (-2-2) H 03/17/17 19:15 CBC WBC 5.9 K/mm3 (4.0-10.0) 03/17/17 14:55 RBC 3.80 M/mm3 (4.00-5.60) L 03/17/17 14:55 Hgb 10.1 GM/dL (11.7-16.9) L 03/17/17 14:55 Hct 33.1 % (35.4-49) L 03/17/17 14:55 MCV 86.9 fl (80-96) 03/17/17 14:55 MCHC 30.4 g/dl (32.0-35.9) L 03/17/17 14:55 RDW 19.6 % (11.9-15.9) H 03/17/17 14:55 Plt Count 146 K/MM3 (134-434) 03/17/17 14:55 MPV 9.0 fl (7.5-11.1) 03/17/17 14:55 Neutrophils % 56.4 % (42.8-82.8) 03/17/17 14:55 Lymphocytes % 33.8 % (8-40) 03/17/17 14:55 Monocytes % 5.3 % (3.8-10.2) 03/17/17 14:55 Eosinophils % 3.3 % (0-4.5) 03/17/17 14:55 Basophils % 1.2 % (0-2.0) 03/17/17 14:55 CBCD WBC 5.9 K/mm3 (4.0-10.0) 03/17/17 14:55 RBC 3.80 M/mm3 (4.00-5.60) L 03/17/17 14:55 Hgb 10.1 GM/dL (11.7-16.9) L 03/17/17 14:55 Hct 33.1 % (35.4-49) L 03/17/17 14:55 MCV 86.9 fl (80-96) 03/17/17 14:55 MCHC 30.4 g/dl (32.0-35.9) L 03/17/17 14:55 RDW 19.6 % (11.9-15.9) H 03/17/17 14:55 Plt Count 146 K/MM3 (134-434) 03/17/17 14:55 MPV 9.0 fl (7.5-11.1) 03/17/17 14:55 CMP Sodium 138 mmol/L (136-145) 03/17/17 14:55 Potassium 5.9 mmol/L (3.5-5.1) H 03/17/17 14:55 Chloride 102 mmol/L (98-107) 03/17/17 14:55 Carbon Dioxide 28 mmol/L (21-32) 03/17/17 14:55 Anion Gap 8 (8-16) 03/17/17 14:55 BUN 101 mg/dL (7-18) H 03/17/17 14:55 Creatinine 2.9 mg/dL (0.7-1.3) H 03/17/17 14:55 Creat Clearance w eGFR 21.15 (>60) 03/17/17 14:55 Calcium 8.0 mg/dL (8.5-10.1) L 03/17/17 14:55 Total Bilirubin 0.3 mg/dL (0.2-1.0) 03/17/17 14:55 AST 45 U/L (15-37) H 03/17/17 14:55 ALT 13 U/L (12-78) 03/17/17 14:55 Alkaline Phosphatase 67 U/L (45-117) 03/17/17 14:55 Total Protein 7.1 g/dl (6.4-8.2) 03/17/17 14:55 Albumin 3.2 g/dl (3.4-5.0) L 03/17/17 14:55 Problem List - Problems (1) Acute on chronic diastolic CHF (congestive heart failure) Code(s): I50.33 - ACUTE ON CHRONIC DIASTOLIC (CONGESTIVE) HEART FAILURE (2) Anemia Code(s): D64.9 - ANEMIA, UNSPECIFIED (3) Cardiac arrest Code(s): I46.9 - CARDIAC ARREST, CAUSE UNSPECIFIED (4) HTN (hypertension) Code(s): I10 - ESSENTIAL (PRIMARY) HYPERTENSION (5) Hyperkalemia Code(s): E87.5 - HYPERKALEMIA (6) Hyperlipidemia Code(s): E78.5 - HYPERLIPIDEMIA, UNSPECIFIED (7) Sleep apnea Code(s): G47.30 - SLEEP APNEA, UNSPECIFIED Assessment/Plan A: 76 y/o male with multiple medical problems who is now s/p witnessed cardiac arrest, intubated, shocked x1 and amio 150mg x1 given with ROSC. Pt now admitted to ICU for continuation of cooling protocol s/p witnessed arrest. Plan: -Cardiology following and appreciate recs -Digoxin level -Continue cooling protocol as per hospital policy -Sedation as needed for vent synchrony and as pt currently paralyzed for cooling protocol -Continue vent support with daily awake trials after cooling protocol completed -Continue to trend cardiac enzymes -PPI -NGT -Consider trickle Tubefeeds in am -[place] to bedside drain -Repeat BMP to trend K; if remains elevated will treat with kayexalate, insulin and dextrose -Cont ICU care Thank you for this interesting consult. Pt is critically ill. CCT 45 minutes not including procedures
[2017-03-17] MEDS: CHLORHEXIDINE GLUCONATE 4% CLEANSER FOR DECOLONIZATION TP SCH (22:46)
[2017-03-17] MEDS: MUPIROCIN 2% TOPICAL OINTMENT FOR DECOLONIZATION NS SCH (22:47)
[2017-03-18 02:40] LABS: MCH 28.6 pg (25.7-33.7); MCHC 33.1 g/dl (32.0-35.9); MEAN CELL VOLUME 86.3 fl (80-96); MEAN PLT VOLUME 9.6 fl (7.5-11.1); PLATELET COUNT 134 K/MM3 (134-434); RDW 19.4 % (11.9-15.9); WHITE BLOOD COUNT 5.1 K/mm3 (4.0-10.0)
[2017-03-18] MEDS: PROPOFOL 100 ML IVPB SCH ×3 (02:51→15:42)
[2017-03-18 03:17] LABS: INR 3.99 (0.82-1.09); PROTHROMBIN TIME (PATIENT) 45.1 SEC (9.98-11.88)
[2017-03-18 03:27] LABS: ALBUMIN 2.4 g/dl (3.4-5.0)
[2017-03-18 03:32] LABS: BILIRUBIN,TOTAL 0.8 mg/dL (0.2-1.0); COCKROFT - GAULT 50.3; CREATININE 2.5 mg/dL (0.7-1.3); TROPONIN I 0.26 ng/ml (0.00-0.05)
[2017-03-18 03:36] LABS: MAGNESIUM 2.7 mg/dL (1.8-2.4); TOT PROT 5.1 g/dl (6.4-8.2)
[2017-03-18 03:38] LABS: CALCIUM 6.6 mg/dL (8.5-10.1)
[2017-03-18] MEDS ORDERED: CALCIUM GLUCONATE 10% - 1,000 MG/10 ML VIAL IVPB ONE (03:40)
[2017-03-18] MEDS ORDERED: KCL 10 MEQ IVPB 100 ML IVPB SCH (04:00)
[2017-03-18] MEDS: INSULIN REGULAR 100 UNITS in SODIUM CHLORIDE 99 ML IVPB SCH (04:01)
[2017-03-18] MEDS: VECURONIUM BROMIDE 50 MG in DEXTROSE 5%-WATER - 250 ML IVPB SCH ×3 (05:17→09:32)
[2017-03-18 06:11] LABS: BASOPHIL 0.7 % (0-2.0); EOSINOPHIL 2.5 % (0-4.5); MCH 26.4 pg (25.7-33.7); MEAN CELL VOLUME 85.4 fl (80-96); MEAN PLT VOLUME 8.4 fl (7.5-11.1); NEUTROPHILS 74.2 % (42.8-82.8); PLATELET COUNT 137 K/MM3 (134-434); WHITE BLOOD COUNT 5.3 K/mm3 (4.0-10.0)
[2017-03-18 06:27] LABS: INR 3.72 (0.82-1.09)
[2017-03-18 06:30] LABS: ACTIVATED PTT 41.4 SECONDS (26.9-34.4)
[2017-03-18 06:37] LABS: ALBUMIN 2.7 g/dl (3.4-5.0); CALCIUM 9.9 mg/dL (8.5-10.1); MAGNESIUM 3.2 mg/dL (1.8-2.4)
[2017-03-18 06:45] LABS: BILIRUBIN,TOTAL 0.6 mg/dL (0.2-1.0); COCKROFT - GAULT 48.37; CREATININE 2.6 mg/dL (0.7-1.3); PHOSPHOROUS 2.1 mg/dL (2.5-4.9); TOT PROT 5.7 g/dl (6.4-8.2); TROPONIN I 0.23 ng/ml (0.00-0.05)
[2017-03-18] MEDS: SODIUM CHLORIDE 1,000 ML IV SCH ×3 (07:18→18:42)
[2017-03-18] MEDS ORDERED: DEXTROSE 50%-WATER - 25 GM/50 ML VIAL IVPUSH ONE (07:48)
[2017-03-18] MEDS ORDERED: DEXTROSE 50%-WATER - 25 GM/50 ML VIAL ONE (07:51)
--- NOTE | 2017-03-18 07:56 | PN ---
Physical Exam: SUBJECTIVE: Patient seen and examined at bed side in ICU. patietn sedated intubated in cooling blanket. spiked BS 500 and K 5.9-- started on Insulin gtt--> now BS 100's d/c gtt--> D50 25cc and ISS >3.1-->3.3--> kRyder given OBJECTIVE: Vital Signs Period Temp Pulse Resp BP Sys/Krishnan Pulse Ox Last 24 Hr 88.6 F-97.0 F 50-100 14-29 80-112/42-76 95-100 GENERAL: intubated, sedated, HEAD: Normal with no signs of trauma. EYES: PERRL, extraocular movements intact, sclera anicteric, conjunctiva clear. No ptosis. ENT: moist mucous NECK: Trachea midline, full range of motion, supple. LUNGS: Distant breath sounds, scattered rhonchi no wheezes, no crackles, no accessory muscle use. HEART: romelia and Regular rhythm, S1, S2 without murmur, rub or gallop. ABDOMEN: Soft, hypoactive BS, mild distended, no guarding, no rebound, no hepatosplenomegaly, no masses. EXTREMITIES: 2+ pulses, warm, well-perfused,+3 pitting edema R>L. NEUROLOGICAL:intubated, eyes open, follows simple commands. PSYCH: Normal mood, normal affect. SKIN: Warm, dry, normal turgor, no rashes or lesions noted Laboratory Results - last 24 hr 03/17/17 03/17/17 03/17/17 19:15 20:00 20:00 WBC RBC Hgb Hct MCV MCHC RDW Plt Count MPV Neutrophils % Lymphocytes % Monocytes % Eosinophils % Basophils % INR PTT (Actin FS) Puncture Site Right radial ABG pH 7.47 H ABG pCO2 at Pt Temp 37.0 ABG pO2 at Pt Temp 80.7 ABG HCO3 26.7 H ABG O2 Sat (Measured) 98.1 ABG O2 Content 12.2 L ABG Base Excess 3.3 H Brian Test Positive O2 Delivery Device Mechanical vent Oxygen Flow Rate 40% Vent Mode A/c Vent Rate 14 Mechanical Rate Yes PEEP 5.0 Pressure Support Vent 550ml Sodium Potassium Chloride Carbon Dioxide Anion Gap BUN Creatinine Creat Clearance w eGFR Random Glucose Lactic Acid Calcium Phosphorus Magnesium Total Bilirubin AST ALT Alkaline Phosphatase Creatine Kinase 80 Troponin I 0.32 H D B-Natriuretic Peptide Total Protein Albumin Digoxin 0.8680 03/18/17 03/18/17 03/18/17 02:00 02:00 02:00 WBC 5.1 RBC 3.59 L Hgb 10.3 L Hct 31.0 L MCV 86.3 MCHC 33.1 RDW 19.4 H Plt Count 134 MPV 9.6 Neutrophils % Lymphocytes % Monocytes % Eosinophils % Basophils % INR 3.99 H PTT (Actin FS) 43.0 H Puncture Site ABG pH ABG pCO2 at Pt Temp ABG pO2 at Pt Temp ABG HCO3 ABG O2 Sat (Measured) ABG O2 Content ABG Base Excess Brian Test O2 Delivery Device Oxygen Flow Rate Vent Mode Vent Rate Mechanical Rate PEEP Pressure Support Vent Sodium 127 L Potassium 3.3 L D Chloride 87 L D Carbon Dioxide 24 Anion Gap 16 BUN 85 H Creatinine 2.5 H Creat Clearance w eGFR 25.10 Random Glucose 560 H* D Lactic Acid Calcium 6.6 L* Phosphorus 3.0 D Magnesium 2.7 H D Total Bilirubin 0.8 D AST 27 D ALT 14 Alkaline Phosphatase 54 Creatine Kinase 102 Troponin I 0.26 H B-Natriuretic Peptide Total Protein 5.1 L D Albumin 2.4 L D Digoxin 03/18/17 03/18/17 03/18/17 02:00 05:15 05:15 WBC 5.3 RBC 4.10 Hgb 10.8 L Hct 35.0 L MCV 85.4 MCHC 31.0 L RDW 19.0 H Plt Count 137 MPV 8.4 D Neutrophils % 74.2 D Lymphocytes % 15.4 D Monocytes % 7.2 Eosinophils % 2.5 Basophils % 0.7 INR 3.72 H PTT (Actin FS) 41.4 H Puncture Site ABG pH ABG pCO2 at Pt Temp ABG pO2 at Pt Temp ABG HCO3 ABG O2 Sat (Measured) ABG O2 Content ABG Base Excess Brian Test O2 Delivery Device Oxygen Flow Rate Vent Mode Vent Rate Mechanical Rate PEEP Pressure Support Vent Sodium Potassium Chloride Carbon Dioxide Anion Gap BUN Creatinine Creat Clearance w eGFR Random Glucose Lactic Acid 1.073 Calcium Phosphorus Magnesium Total Bilirubin AST ALT Alkaline Phosphatase Creatine Kinase Troponin I B-Natriuretic Peptide Total Protein Albumin Digoxin 03/18/17 05:15 WBC RBC Hgb Hct MCV MCHC RDW Plt Count MPV Neutrophils % Lymphocytes % Monocytes % Eosinophils % Basophils % INR PTT (Actin FS) Puncture Site ABG pH ABG pCO2 at Pt Temp ABG pO2 at Pt Temp ABG HCO3 ABG O2 Sat (Measured) ABG O2 Content ABG Base Excess Brian Test O2 Delivery Device Oxygen Flow Rate Vent Mode Vent Rate Mechanical Rate PEEP Pressure Support Vent Sodium 142 D Potassium 3.1 L Chloride 103 D Carbon Dioxide 27 Anion Gap 12 BUN 97 H Creatinine 2.6 H Creat Clearance w eGFR 23.99 Random Glucose 101 D Lactic Acid Calcium 9.9 D Phosphorus 2.1 L D Magnesium 3.2 H Total Bilirubin 0.6 D AST 22 ALT 12 Alkaline Phosphatase 63 Creatine Kinase 113 Troponin I 0.23 H B-Natriuretic Peptide 6563.63 H Total Protein 5.7 L Albumin 2.7 L Digoxin Active Medications Generic Name Dose Route Start Last Admin Trade Name Freq PRN Reason Stop Dose Admin Chlorhexidine Gluconate 1 applic 03/17/17 22:00 03/17/17 22:46 Hibiclens For Decolonization - TP 1 applic HS SARAH Administration Propofol 100 mls @ 4.082 mls/hr 03/17/17 15:30 03/18/17 07:23 Diprivan - IVPB 20.412 mls/hr TITR SARAH Administration Protocol 5 MCG/KG/MIN Vecuronium [place] 50 mg/ 250 mls @ 40.82 mls/hr 03/17/17 17:30 03/18/17 05:17 Dextrose IVPB 20 mls/hr TITR SARAH Administration 1 MCG/KG/MIN Sodium Chloride 1,000 mls @ 100 mls/hr 03/17/17 18:30 03/18/17 07:18 Normal Saline - IV 100 mls/hr ASDIR SARAH Administration Midazolam HCl 100 mg/ Sodium 100 mls @ 2 mls/hr 03/17/17 18:45 03/17/17 19:32 Chloride IVPB 2 mls/hr TITR SARAH Administration Protocol 2 MG/HR Insulin Human Regular 100 100 mls @ 14.6 mls/hr 03/18/17 03:45 03/18/17 07:23 units/ Sodium Chloride IVPB 0 units/kg/hr TITR SARAH Titration Protocol 0.1 UNITS/KG/HR Mupirocin 1 applic 03/17/17 22:00 03/17/17 22:47 Bactroban Ointment (For Decolonization) - NS 03/22/17 21:59 1 applic BID SARAH Administration Pantoprazole Sodium 40 mg 03/18/17 10:00 Protonix 40mg Ivpb (Pre-Docked) IVPB DAILY SARAH Pneumococcal 13-Valent Conj Vacc 0.5 ml 03/18/17 10:00 Prevnar 13 Syringe - IM 03/18/17 10:01 .ONCE ONE ASSESSMENT/PLAN: 76 year old male w/ a significant PMH of diastolic CHF (severely reduced RVEF of uncertain etiology; severely dilated RV on 02/2017 ECHO, 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 Cardiac arrest: pacemaker interrogation showed Vfib, Echo reviewed-severe TR LVEF WNL right sided systolic dysfunction colling protocol continue ventilatory support will be evaluated by security installation technician ABG in AM CHF: Per Echo from supervisor [employer] dietary service and echo done here he has normal LV systolic function with dilated RV and mild to mod RV systolic dysfunction has severe tricuspid regurgitation Taper off IV dopamine as BP allows. echo sever TR regurage and right heart failure, clinically fluid overloaded. Non ischemic CAD/Non ischemic cardiomyopathy: cont Lipitor COPD: on home oxygen PRN, minimal activity, able to walk 10 steps from chary to bed, uses wheel chair device at home. continue ventilatory support for now broncio dilators HTN: hold antihypertensives for now as patient is on dopamine Afib: INR supratherapeutic hold coumadin for now Digoxin if HR increases Digoxin level within range CKD stage 3: at baseline per supervisor [employer] dietary service Cr 2.7 in march 2016 renally dose all medications monitor Cr Hyperglycemia: A1C 6.4 Insulin sliding scale HLD: lipitor 80mg HS send lipid panel with morning labs Obstructive Sleep Apnea: on vent for now Pulmonary hypertension as above FEN: IVF to resuscitated hypotenssion . Strategy Planning Consultant consulted for tube feeds. npo-possible tube feeds tomorrow if unable to extubate PPx: INR supratherapeutic, PT consult when able to participate, Protonix Dispo: continue ICU monitor. Visit type - Emergency Visit Emergency Visit: Yes ED Registration Date: 03/17/17 Care time: The patient presented to the Emergency Department on the above date and was hospitalized for further evaluation of their emergent condition. - New Patient This patient is new to me today: Yes Date on this admission: 03/20/17 - Critical Care Critical Care patient: Yes Total Critical Care Time (in minutes): 58 Critical Care Statement: The care of this patient involved high complexity decision making to prevent further life threatening deterioration of the patient 's condition and/or to evalute & treat vital organ system(s) failure or risk of failure.
[2017-03-18] MEDS: KCL 10 MEQ IVPB 100 ML IVPB SCH ×3 (07:59→10:20)
[2017-03-18] MEDS ORDERED: SODIUM CHLORIDE 1,000 ML IV STA (08:00)
[2017-03-18] MEDS: DOPAMINE 400 MG/D5W - 250 ML IVPB SCH ×2 (08:06→15:45)
[2017-03-18] MEDS ORDERED: HEMOQUE TEST 1 EACH EACH ONE (08:08)
[2017-03-18] MEDS ORDERED: POTASSIUM PHOSPHATE 30 MM in SODIUM CHLORIDE 250 ML IVPB ONE (08:45)
[2017-03-18] MEDS ORDERED: PANTOPRAZOLE SODIUM 40 MG in SODIUM CHLORIDE 100 ML IVPB SCH (10:00)
[2017-03-18] MEDS: MUPIROCIN 2% TOPICAL OINTMENT FOR DECOLONIZATION NS SCH ×2 (10:28→22:08)
[2017-03-18] MEDS: PANTOPRAZOLE SODIUM 40 MG/100 ML PRE-DOCKED IVPB SCH (10:31)
[2017-03-18 10:59] LABS: TROPONIN I 0.16 ng/ml (0.00-0.05)
[2017-03-18 11:11] LABS: ARTERIAL BLD GAS O2 SATURATION 98.3 % (90-98.9); ARTERIAL BLOOD GAS HCO3 24.3 meq/L (22-26); ARTERIAL BLOOD GAS PO2 91.2 mmHg (70-100)
[2017-03-18 11:13] LABS: ALLENS TEST POSITIVE; ART PUNCT SITE RIGHT RADIAL; ARTERIAL BLOOD GAS pH 7.55 (7.35-7.45); LPM/O2% 40; MECH. VENT. ESPRIT; PT. ON O2? YES; TYPE OF O2 OT; VENT RATE 14; VT/PRESS 550
--- NOTE | 2017-03-18 12:15 | PN ---
Teaching Attending Note Name of Resident: Veto Velazquez ATTENDING PHYSICIAN STATEMENT I saw and evaluated the patient. I reviewed the resident's note and discussed the case with the resident. I agree with the resident's findings and plan as documented. SUBJECTIVE: Pt seen and examined in the ICU. Remains intubated, sedated, paralyzed on hypothermia protocol. Paced rhythm on telemetry. On dopamine gtt for BP support. OBJECTIVE: Last Vital Signs Temp Pulse Resp BP Pulse Ox 89.2 F L 53 L 20 113/63 100 03/18/17 09:05 03/18/17 10:24 03/18/17 12:03 03/18/17 09:05 03/18/17 10:24 Intake & Output 03/15/17 03/16/17 03/17/17 03/18/17 23:59 23:59 23:59 23:59 Intake Total 21217.2 Output Total 1100 1500 Balance -1100 19242.2 Weight 322 lb 322 lb Gen: intubated, sedated Heart: bradycardic, regular Lung: decreased breath sounds at the bases, scattered rhonchi Abd: soft, nontender Ext: + edema CBC, BMP 03/18/17 05:15 03/18/17 05:15 Active Medications Atorvastatin Calcium (Lipitor -) 80 mg NGT HS SARAH Chlorhexidine Gluconate (Hibiclens For Decolonization -) 1 applic TP HS SARAH Last Admin: 03/17/17 22:46 Dose: 1 applic Propofol (Diprivan -) 100 mls @ 4.082 mls/hr IVPB TITR SARAH; 5 MCG/KG/MIN PRN Reason: Protocol Last Titration: 03/18/17 08:00 Dose: 12.5 mcg/kg/min Sodium Chloride (Normal Saline -) 1,000 mls @ 100 mls/hr IV ASDIR SARAH Last Admin: 03/18/17 09:04 Dose: 100 mls/hr Midazolam HCl 100 mg/ Sodium (Chloride) 100 mls @ 2 mls/hr IVPB TITR SARAH; 2 MG/ HR PRN Reason: Protocol Last Admin: 03/17/17 19:32 Dose: 2 mls/hr Insulin Human Regular 100 (units/ Sodium Chloride) 100 mls @ 14.6 mls/hr IVPB TITR SARAH; 0.1 UNITS/KG/HR PRN Reason: Protocol Last Titration: 03/18/17 07:23 Dose: 0 units/kg/hr Potassium Phosphate 30 mm/ (Sodium Chloride) 260 mls @ 62.5 mls/hr IVPB ONCE ONE Stop: 03/18/17 12:54 Dopamine HCl/Dextrose (Dopamine 400 Mg/D5w -) 250 mls @ 27.386 mls/hr IVPB TITR SARAH; 5 MCG/KG/MIN PRN Reason: Protocol Last Titration: 03/18/17 09:03 Dose: 8 mcg/kg/min Vecuronium [place] 50 mg/ (Dextrose) 250 mls @ 43.81 mls/hr IVPB TITR SARAH; 1 MCG/KG/MIN PRN Reason: Protocol Last Titration: 03/18/17 10:28 Dose: 0 mcg/kg/min Mupirocin (Bactroban Ointment (For Decolonization) -) 1 applic NS BID SARAH Stop: 03/22/17 21:59 Last Admin: 03/18/17 10:28 Dose: 1 applic Pantoprazole Sodium (Protonix 40mg Ivpb (Pre-Docked)) 40 mg IVPB DAILY SARAH Last Admin: 03/18/17 10:31 Dose: 40 mg Pneumococcal 13-Valent Conj Vacc (Prevnar 13 Syringe -) 0.5 ml IM .ONCE ONE Stop: 03/18/17 10:01 ASSESSMENT AND PLAN: s/p Vfib Cardiac Arrest Acute on Chronic Hypoxic Respiratory Failure Acute on Chronic Diastolic Heart Failure Severe Pulmonary HTN s/p BiV PPM CAD +Troponins Atrial Fibrillation HTN Hyperlipidemia DM COPD Morbid Obesity Obstructive Sleep Apnea - complete hypothermia protocol - keep sedated - s/p PPM interrogation confirming VT/VF - echocardiogram - LE dopplers - replete lytes, keep K>4, Mg>2 - continue anticoagulation, keep INR 2-3 - titrate dopamine gtt to maintain MAP >65 - poor visualization of left hemithorax on bedside ultrasound, will need CT chest once hypothermia protocol completed - obtain records from [facility] - taper FiO2 to keep SpO2 >90% - continue volume assist control, not a candidate for weaning at this time - hold sedation in AM to assess mental status - spontaneous breathing trials once mental status improves - enteral feeds in AM - DVT/GI prophylaxis - continue ICU monitoring critical care time spent in reviewing chart, evaluating patient and formulating plan 40 min
--- NOTE | 2017-03-18 12:16 | PN ---
Progress Note, Physician History of Present Illness: The patient is a 76 year old black male, with a significant past medical history of diastolic CHF (severely reduced RVEF of uncertain etiology; severely dilated RV on 02/2017 ECHO, per pt's skin care therapist at [place]), (non- obstructive CAD by 2008 coronary angiogram), Medtronic "biventricular pacemaker , COPD, HTN, HLD, Atrial Fibrillation, renal insufficiency, Morbid obesity, Prostate CA, Sleep apnea on O2, generalzied weakness (wheelchair-bound), Glaucoma BIBA from [facility] s/p Cardiac arrest. As per EMS, the patient was initially seated in PT doing leg exercises when he became unresponsive. Patient was brought back into his room in the [place] and chest compressions were initiated by nursing staff. Down time was between 4-5 minutes. patient was shocked once and ROSC was noted. As per EMS, patient was given 150 mg of Amiodarone in the field and was brought into the ED for further evaluation. Upon arrival to the ED, patients (health care proxy) gave consent to intubate over the telephone. 2:48 PM- 20 mg of Etomidate given through IV 2:49 PM- 150 mg of Succinylcholine given through IV 2:50 PM- Patient intubated with 7.5 ET tube, positioned 24 cm at the lip Pt's says pt is followed closely by [place] [facility] cardiac groups. I spoke by telephone with pt's skin care therapist, who provided much of the above history. - Current Medication List Current Medications: Active Medications Atorvastatin Calcium (Lipitor -) 80 mg NGT [facility] Chlorhexidine Gluconate (Hibiclens For Decolonization -) 1 applic TP HS [facility] Last Admin: 03/17/17 22:46 Dose: 1 applic Propofol (Diprivan -) 100 mls @ 4.082 mls/hr IVPB TITR SARAH; 5 MCG/KG/MIN PRN Reason: Protocol Last Titration: 03/18/17 08:00 Dose: 12.5 mcg/kg/min Sodium Chloride (Normal Saline -) 1,000 mls @ 100 mls/hr IV ASDIR SARAH Last Admin: 03/18/17 09:04 Dose: 100 mls/hr Midazolam HCl 100 mg/ Sodium (Chloride) 100 mls @ 2 mls/hr IVPB TITR SARAH; 2 MG/ HR PRN Reason: Protocol Last Admin: 03/17/17 19:32 Dose: 2 mls/hr Insulin Human Regular 100 (units/ Sodium Chloride) 100 mls @ 14.6 mls/hr IVPB TITR SARAH; 0.1 UNITS/KG/HR PRN Reason: Protocol Last Titration: 03/18/17 07:23 Dose: 0 units/kg/hr Potassium Phosphate 30 mm/ (Sodium Chloride) 260 mls @ 62.5 mls/hr IVPB ONCE ONE Stop: 03/18/17 12:54 Dopamine HCl/Dextrose (Dopamine 400 Mg/D5w -) 250 mls @ 27.386 mls/hr IVPB TITR SARAH; 5 MCG/KG/MIN PRN Reason: Protocol Last Titration: 03/18/17 09:03 Dose: 8 mcg/kg/min Vecuronium [place] 50 mg/ (Dextrose) 250 mls @ 43.81 mls/hr IVPB TITR SARAH; 1 MCG/KG/MIN PRN Reason: Protocol Last Titration: 03/18/17 10:28 Dose: 0 mcg/kg/min Mupirocin (Bactroban Ointment (For Decolonization) -) 1 applic NS BID SARAH Stop: 03/22/17 21:59 Last Admin: 03/18/17 10:28 Dose: 1 applic Pantoprazole Sodium (Protonix 40mg Ivpb (Pre-Docked)) 40 mg IVPB DAILY [facility] Last Admin: 03/18/17 10:31 Dose: 40 mg Pneumococcal 13-Valent Conj Vacc (Prevnar 13 Syringe -) 0.5 ml IM .ONCE ONE Stop: 03/18/17 10:01 - Objective Vital Signs: Vital Signs Temperature 89.2 F L 03/18/17 09:05 Pulse Rate 53 L 03/18/17 10:24 Respiratory Rate 20 03/18/17 12:03 Blood Pressure 113/63 03/18/17 09:05 O2 Sat by Pulse Oximetry (%) 100 03/18/17 10:24 Eyes: Yes: WNL, Conjunctiva Clear, EOM Intact HENT: Yes: WNL, Atraumatic, Normocephalic Neck: Yes: WNL, Supple, Trachea Midline Cardiovascular: Yes: WNL, Regular Rate and Rhythm Respiratory: Yes: Diminished, Mechanically Ventilated Gastrointestinal: Yes: WNL, Normal Bowel Sounds Genitourinary: Yes: WNL Musculoskeletal: Yes: WNL Extremities: Yes: WNL Edema: No Edema: LLE: 3+, RLE: 3+ Integumentary: Yes: WNL Neurological: Yes: Alert, Unresponsive ...Motor Strength: WNL Psychiatric: Yes: WNL Labs: CBC, BMP 03/18/17 05:15 03/18/17 05:15 INR, PTT INR 3.72 (0.82-1.09) H 03/18/17 05:15 Laboratory Tests 03/17/17 03/17/17 03/17/17 14:55 14:55 14:55 WBC 5.9 RBC 3.80 L Hgb 10.1 L Hct 33.1 L MCV 86.9 MCHC 30.4 L RDW 19.6 H Plt Count 146 MPV 9.0 Neutrophils % 56.4 Lymphocytes % 33.8 Monocytes % 5.3 Eosinophils % 3.3 Basophils % 1.2 INR 3.30 H PTT (Actin FS) 41.1 H Puncture Site ABG pH ABG pCO2 at Pt Temp ABG pO2 at Pt Temp ABG HCO3 ABG O2 Sat (Measured) ABG O2 Content ABG Base Excess Brian Test O2 Delivery Device Oxygen Flow Rate Vent Mode Vent Rate Mechanical Rate PEEP Pressure Support Vent Sodium Potassium Chloride Carbon Dioxide Anion Gap BUN Creatinine Creat Clearance w eGFR POC Glucometer Random Glucose Lactic Acid Calcium Phosphorus 5.1 H Magnesium 3.6 H Total Bilirubin AST ALT Alkaline Phosphatase Creatine Kinase Troponin I B-Natriuretic Peptide 6514.39 H Total Protein Albumin Urine Color Urine Appearance Urine pH Ur Specific [place] Urine Protein Urine Glucose (UA) Urine Ketones Urine Blood Urine Nitrite Urine Bilirubin Urine Urobilinogen Ur Leukocyte Esterase Digoxin Opiates Screen Methadone Screen Barbiturate Screen Phencyclidine Screen Ur Amphetamines Screen MDMA (Ecstasy) Screen Benzodiazepines Screen Cocaine Screen U Marijuana (THC) Screen 03/17/17 03/17/17 03/17/17 14:55 14:55 14:59 WBC RBC Hgb Hct MCV MCHC RDW Plt Count MPV Neutrophils % Lymphocytes % Monocytes % Eosinophils % Basophils % INR PTT (Actin FS) Puncture Site ABG pH ABG pCO2 at Pt Temp ABG pO2 at Pt Temp ABG HCO3 ABG O2 Sat (Measured) ABG O2 Content ABG Base Excess Brian Test O2 Delivery Device Oxygen Flow Rate Vent Mode Vent Rate Mechanical Rate PEEP Pressure Support Vent Sodium 138 Potassium 5.9 H Chloride 102 Carbon Dioxide 28 Anion Gap 8 BUN 101 H Creatinine 2.9 H Creat Clearance w eGFR 21.15 POC Glucometer Random Glucose 162 H Lactic Acid 1.556 Calcium 8.0 L Phosphorus Magnesium Total Bilirubin 0.3 AST 45 H ALT 13 Alkaline Phosphatase 67 Creatine Kinase 149 Troponin I 0.03 B-Natriuretic Peptide Total Protein 7.1 Albumin 3.2 L Urine Color Yellow Urine Appearance Slcloudy Urine pH 5.0 Ur Specific [place] 1.012 Urine Protein Negative Urine Glucose (UA) Negative Urine Ketones Negative Urine Blood Negative Urine Nitrite Negative Urine Bilirubin Negative Urine Urobilinogen Negative Ur Leukocyte Esterase Negative Digoxin Opiates Screen Methadone Screen Barbiturate Screen Phencyclidine Screen Ur Amphetamines Screen MDMA (Ecstasy) Screen Benzodiazepines Screen Cocaine Screen U Marijuana (THC) Screen 03/17/17 03/17/17 03/17/17 14:59 19:15 20:00 WBC RBC Hgb Hct MCV MCHC RDW Plt Count MPV Neutrophils % Lymphocytes % Monocytes % Eosinophils % Basophils % INR PTT (Actin FS) Puncture Site Right radial ABG pH 7.47 H ABG pCO2 at Pt Temp 37.0 ABG pO2 at Pt Temp 80.7 ABG HCO3 26.7 H ABG O2 Sat (Measured) 98.1 ABG O2 Content 12.2 L ABG Base Excess 3.3 H Brian Test Positive O2 Delivery Device Mechanical vent Oxygen Flow Rate 40% Vent Mode A/c Vent Rate 14 Mechanical Rate Yes PEEP 5.0 Pressure Support Vent 550ml Sodium Potassium Chloride Carbon Dioxide Anion Gap BUN Creatinine Creat Clearance w eGFR POC Glucometer Random Glucose Lactic Acid Calcium Phosphorus Magnesium Total Bilirubin AST ALT Alkaline Phosphatase Creatine Kinase 80 Troponin I 0.32 H D B-Natriuretic Peptide Total Protein Albumin Urine Color Urine Appearance Urine pH Ur Specific [place] Urine Protein Urine Glucose (UA) Urine Ketones Urine Blood Urine Nitrite Urine Bilirubin Urine Urobilinogen Ur Leukocyte Esterase Digoxin Opiates Screen Negative Methadone Screen Negative Barbiturate Screen Negative Phencyclidine Screen Negative Ur Amphetamines Screen Negative MDMA (Ecstasy) Screen Negative Benzodiazepines Screen Negative Cocaine Screen Negative U Marijuana (THC) Screen Negative 03/17/17 03/18/17 03/18/17 20:00 02:00 02:00 WBC 5.1 RBC 3.59 L Hgb 10.3 L Hct 31.0 L MCV 86.3 MCHC 33.1 RDW 19.4 H Plt Count 134 MPV 9.6 Neutrophils % Lymphocytes % Monocytes % Eosinophils % Basophils % INR PTT (Actin FS) Puncture Site ABG pH ABG pCO2 at Pt Temp ABG pO2 at Pt Temp ABG HCO3 ABG O2 Sat (Measured) ABG O2 Content ABG Base Excess Brian Test O2 Delivery Device Oxygen Flow Rate Vent Mode Vent Rate Mechanical Rate PEEP Pressure Support Vent Sodium 127 L Potassium 3.3 L D Chloride 87 L D Carbon Dioxide 24 Anion Gap 16 BUN 85 H Creatinine 2.5 H Creat Clearance w eGFR 25.10 POC Glucometer Random Glucose 560 H* D Lactic Acid Calcium 6.6 L* Phosphorus 3.0 D Magnesium 2.7 H D Total Bilirubin 0.8 D AST 27 D ALT 14 Alkaline Phosphatase 54 Creatine Kinase 102 Troponin I 0.26 H B-Natriuretic Peptide Total Protein 5.1 L D Albumin 2.4 L D Urine Color Urine Appearance Urine pH Ur Specific [place] Urine Protein Urine Glucose (UA) Urine Ketones Urine Blood Urine Nitrite Urine Bilirubin Urine Urobilinogen Ur Leukocyte Esterase Digoxin 0.8680 Opiates Screen Methadone Screen Barbiturate Screen Phencyclidine Screen Ur Amphetamines Screen MDMA (Ecstasy) Screen Benzodiazepines Screen Cocaine Screen U Marijuana (THC) Screen 03/18/17 03/18/17 03/18/17 02:00 02:00 05:10 WBC RBC Hgb Hct MCV MCHC RDW Plt Count MPV Neutrophils % Lymphocytes % Monocytes % Eosinophils % Basophils % INR 3.99 H PTT (Actin FS) 43.0 H Puncture Site ABG pH ABG pCO2 at Pt Temp ABG pO2 at Pt Temp ABG HCO3 ABG O2 Sat (Measured) ABG O2 Content ABG Base Excess Brian Test O2 Delivery Device Oxygen Flow Rate Vent Mode Vent Rate Mechanical Rate PEEP Pressure Support Vent Sodium Potassium Chloride Carbon Dioxide Anion Gap BUN Creatinine Creat Clearance w eGFR POC Glucometer 169.50058 Random Glucose Lactic Acid 1.073 Calcium Phosphorus Magnesium Total Bilirubin AST ALT Alkaline Phosphatase Creatine Kinase Troponin I B-Natriuretic Peptide Total Protein Albumin Urine Color Urine Appearance Urine pH Ur Specific [place] Urine Protein Urine Glucose (UA) Urine Ketones Urine Blood Urine Nitrite Urine Bilirubin Urine Urobilinogen Ur Leukocyte Esterase Digoxin Opiates Screen Methadone Screen Barbiturate Screen Phencyclidine Screen Ur Amphetamines Screen MDMA (Ecstasy) Screen Benzodiazepines Screen Cocaine Screen U Marijuana (THC) Screen 03/18/17 03/18/17 03/18/17 05:15 05:15 05:15 WBC 5.3 RBC 4.10 Hgb 10.8 L Hct 35.0 L MCV 85.4 MCHC 31.0 L RDW 19.0 H Plt Count 137 MPV 8.4 D Neutrophils % 74.2 D Lymphocytes % 15.4 D Monocytes % 7.2 Eosinophils % 2.5 Basophils % 0.7 INR 3.72 H PTT (Actin FS) 41.4 H Puncture Site ABG pH ABG pCO2 at Pt Temp ABG pO2 at Pt Temp ABG HCO3 ABG O2 Sat (Measured) ABG O2 Content ABG Base Excess Brian Test O2 Delivery Device Oxygen Flow Rate Vent Mode Vent Rate Mechanical Rate PEEP Pressure Support Vent Sodium 142 D Potassium 3.1 L Chloride 103 D Carbon Dioxide 27 Anion Gap 12 BUN 97 H Creatinine 2.6 H Creat Clearance w eGFR 23.99 POC Glucometer Random Glucose 101 D Lactic Acid Calcium 9.9 D Phosphorus 2.1 L D Magnesium 3.2 H Total Bilirubin 0.6 D AST 22 ALT 12 Alkaline Phosphatase 63 Creatine Kinase 113 Troponin I 0.23 H B-Natriuretic Peptide 6563.63 H Total Protein 5.7 L Albumin 2.7 L Urine Color Urine Appearance Urine pH Ur Specific [place] Urine Protein Urine Glucose (UA) Urine Ketones Urine Blood Urine Nitrite Urine Bilirubin Urine Urobilinogen Ur Leukocyte Esterase Digoxin Opiates Screen Methadone Screen Barbiturate Screen Phencyclidine Screen Ur Amphetamines Screen MDMA (Ecstasy) Screen Benzodiazepines Screen Cocaine Screen U Marijuana (THC) Screen 03/18/17 03/18/17 03/18/17 07:18 08:12 10:23 WBC RBC Hgb Hct MCV MCHC RDW Plt Count MPV Neutrophils % Lymphocytes % Monocytes % Eosinophils % Basophils % INR PTT (Actin FS) Puncture Site ABG pH ABG pCO2 at Pt Temp ABG pO2 at Pt Temp ABG HCO3 ABG O2 Sat (Measured) ABG O2 Content ABG Base Excess Brian Test O2 Delivery Device Oxygen Flow Rate Vent Mode Vent Rate Mechanical Rate PEEP Pressure Support Vent Sodium Potassium Chloride Carbon Dioxide Anion Gap BUN Creatinine Creat Clearance w eGFR POC Glucometer 100.88259 144.48778 Random Glucose Lactic Acid Calcium Phosphorus Magnesium Total Bilirubin AST ALT Alkaline Phosphatase Creatine Kinase 146 Troponin I 0.16 H D B-Natriuretic Peptide Total Protein Albumin Urine Color Urine Appearance Urine pH Ur Specific [place] Urine Protein Urine Glucose (UA) Urine Ketones Urine Blood Urine Nitrite Urine Bilirubin Urine Urobilinogen Ur Leukocyte Esterase Digoxin Opiates Screen Methadone Screen Barbiturate Screen Phencyclidine Screen Ur Amphetamines Screen MDMA (Ecstasy) Screen Benzodiazepines Screen Cocaine Screen U Marijuana (THC) Screen 03/18/17 11:05 WBC RBC Hgb Hct MCV MCHC RDW Plt Count MPV Neutrophils % Lymphocytes % Monocytes % Eosinophils % Basophils % INR PTT (Actin FS) Puncture Site Right radial ABG pH 7.55 H ABG pCO2 at Pt Temp 27.6 L D ABG pO2 at Pt Temp 91.2 ABG HCO3 24.3 ABG O2 Sat (Measured) 98.3 ABG O2 Content 17.0 ABG Base Excess 3.0 H Brian Test Positive O2 Delivery Device Ot Oxygen Flow Rate 40 Vent Mode Ac Vent Rate 14 Mechanical Rate Esprit PEEP 5.0 Pressure Support Vent 550 Sodium Potassium Chloride Carbon Dioxide Anion Gap BUN Creatinine Creat Clearance w eGFR POC Glucometer Random Glucose Lactic Acid Calcium Phosphorus Magnesium Total Bilirubin AST ALT Alkaline Phosphatase Creatine Kinase Troponin I B-Natriuretic Peptide Total Protein Albumin Urine Color Urine Appearance Urine pH Ur Specific [place] Urine Protein Urine Glucose (UA) Urine Ketones Urine Blood Urine Nitrite Urine Bilirubin Urine Urobilinogen Ur Leukocyte Esterase Digoxin Opiates Screen Methadone Screen Barbiturate Screen Phencyclidine Screen Ur Amphetamines Screen MDMA (Ecstasy) Screen Benzodiazepines Screen Cocaine Screen U Marijuana (THC) Screen Assessment/Plan - Problems (1) Cardiac arrest Assessment/Plan: Pt reportedly received one shock on AED order. Now intubated; EKG shows ventricular pacing.; no arrhythmias on telemetry. White-out of left hemithorax. Consider therapeutic hypothermia. Medtronic "biventricular" PPM, per interogated VT VF arrest. will ask for consultation from dr. Bello electrophysiology. Will need ICD if patient survives. Need for Amiodarone t be decided by EP. supplement K and Mg echo Pending Keep K+ 4-4.5, Mg 2-2.3. F/u Is and Os, BP. TNI 0.03; f/u serially. (Hx non-obstructive CAD on coronary angiogram 2008). Per pt's skin care therapist, pt has had a long course of nonischemic cardiomyopathy ( normal LVEF; severely reduced RVEF, severely dilated RV, severe pulmonary HTN) of unknown etiology; chronic renal dysfunction (BUN in 90s-100/BUN 2-3), essentially wheelchair-bound. Per skin care therapist, pt and family reportedly had discussion with palliative care team on last admission 02/2017 because of his poor health and prognosis, but family recieved the information with making a decision, and palliative care was "withdrawn". Hx AF; INR 3.3. On digoxin at home; f/u level, and keep 0.5-1.0. Pt given amiodarone in the field. Elevated electrolytes, BUN/Cr; f/u with necktie turner. Code(s): I46.9 - CARDIAC ARREST, CAUSE UNSPECIFIED (2) Acute on chronic diastolic CHF (congestive heart failure) Assessment/Plan: see under "cardiac arrest'. Code(s): I50.33 - ACUTE ON CHRONIC DIASTOLIC (CONGESTIVE) HEART FAILURE (3) Hyperlipidemia Assessment/Plan: high-dose statin. Code(s): E78.5 - HYPERLIPIDEMIA, UNSPECIFIED (4) Sleep apnea Code(s): G47.30 - SLEEP APNEA, UNSPECIFIED (5) HTN (hypertension) Code(s): I10 - ESSENTIAL (PRIMARY) HYPERTENSION (6) 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 hypertension Assessment/Plan: Hx COPD; severe RV failure. White-out of left lung. F/u Is and Os. Intubated. F/u with concrete carpenter. Code(s): I27.2 - OTHER SECONDARY PULMONARY HYPERTENSION (8) Anemia Code(s): D64.9 - ANEMIA, UNSPECIFIED CC time 36 min
[2017-03-18] MEDS: ATORVASTATIN CA 80 MG TABLET (FP) NGT SCH ×2 (12:34→22:08)
--- NOTE | 2017-03-18 13:25 | EKG ---
Test Reason : Blood Pressure : / mmHG Vent. Rate : 089 BPM Atrial Rate : 500 BPM P-R Int : 000 ms QRS Dur : 152 ms QT Int : 418 ms P-R-T Axes : 000 084 092 degrees QTc Int : 508 ms Ventricular-paced rhythm ABNORMAL ECG NO PREVIOUS ECGS AVAILABLE Confirmed by TAD BENITEZ, MCKENNA ([id number]) on 03/18/2017 1:25:19 PM Referred By: Confirmed By:MCKENNA MISHRA MD
--- NOTE | 2017-03-18 13:51 | PN ---
Teaching Attending Note Name of Resident: Anthony Lawton ATTENDING PHYSICIAN STATEMENT I saw and evaluated the patient. I reviewed the resident's note and discussed the case with the resident. I agree with the resident's findings and plan as documented. SUBJECTIVE: Unable to obtain hx . intubated sedated OBJECTIVE: Intubated , sedated, round pinpoint pupils, no JVD , ET tube in CV: RRR, no mRG Lungs ; decreased breath sounds at bases, rales heard Abd : obese,, hypoactive BS . Ext : 2+ pitting edema , R leg circumference > L. chronic hyperpigmentation and skin thickening . ASSESSMENT AND PLAN: 76 y/o man with h/o Severe cardiomypathy( non ischemic ) ,with severely reduced EF, and PULm HTN, Diastolic dysfunction , A fib on AC, who presented with cardiac arrest ( V fib ) from his retirement 1- S/P cardiac arrest: likely due to severe cardiomyopathy. - cont hypothermia protocol - no events and in paced rhythma now - echo pending read . - interrogation of oacer confirmed V Fib arrest. - evaluated by Card, EP consult pending 2- severe non-ischemic cardiomypoathy, with acute on chronic systolic and diastolic heart failure - hold off diuresis since on pressors. - might need to diurese if not able to extubate - cont with dopamine, as he has a peripheral line ( no central line for Andrea or other pressors ) - echo pending 3- coumadin coagulopathy: monitor and hold coumadin 4- A fib: on coumadin at home.was tachy this am ,now Heart rate improved. - hold off AV sumit blockers due to hypotension . hold off dig due to renal function 5- DVT px iNR 3 ICU level of care Critical Care Total Critical Care Time (in minutes): 45 Critical Care Statement: The care of this patient involved high complexity decision making to prevent further life threatening deterioration of the patient 's condition and/or to evalute & treat vital organ system(s) failure or risk of failure.
--- NOTE | 2017-03-18 16:07 | PN ---
Physical Exam: SUBJECTIVE: Patient seen and examined at bedside remains intubated and sedated Had long discussion with and daughter about patient's medical history at bedside records obtained from [facility] bob to NAOMI from pilling machine operator's office was started on insulin gtt last night for blood glucose >500 on chemistry OBJECTIVE: Vital Signs Period Temp Pulse Resp BP Sys/Krishnan Pulse Ox Last 24 Hr 88.6 F-97.0 F 50-123 14-123 63-132/42-85 95-100 GENERAL: intubated sedated EYES: Pupils equal, round and reactive to light. Pinpoint LUNGS:bilateral coarse breath sounds. bronchial breath sounds HEART: Irregular ABDOMEN: Soft, nontender, not distended, umbilical hernia MUSCULOSKELETAL: Normal range of motion at all joints. No bony deformities or tenderness. No CVA tenderness. UPPER EXTREMITIES: no edema. LOWER EXTREMITIES: 2+ pitting edema with evidence of chronic venous stasis right leg circumference greater than left leg circumference Laboratory Results - last 24 hr 03/17/17 03/17/17 03/17/17 19:15 20:00 20:00 WBC RBC Hgb Hct MCV MCHC RDW Plt Count MPV Neutrophils % Lymphocytes % Monocytes % Eosinophils % Basophils % INR PTT (Actin FS) Puncture Site Right radial ABG pH 7.47 H ABG pCO2 at Pt Temp 37.0 ABG pO2 at Pt Temp 80.7 ABG HCO3 26.7 H ABG O2 Sat (Measured) 98.1 ABG O2 Content 12.2 L ABG Base Excess 3.3 H Brian Test Positive O2 Delivery Device Mechanical vent Oxygen Flow Rate 40% Vent Mode A/c Vent Rate 14 Mechanical Rate Yes PEEP 5.0 Pressure Support Vent 550ml Sodium Potassium Chloride Carbon Dioxide Anion Gap BUN Creatinine Creat Clearance w eGFR POC Glucometer Random Glucose Lactic Acid Calcium Phosphorus Magnesium Total Bilirubin AST ALT Alkaline Phosphatase Creatine Kinase 80 Troponin I 0.32 H D B-Natriuretic Peptide Total Protein Albumin Digoxin 0.8680 03/18/17 03/18/17 03/18/17 02:00 02:00 02:00 WBC 5.1 RBC 3.59 L Hgb 10.3 L Hct 31.0 L MCV 86.3 MCHC 33.1 RDW 19.4 H Plt Count 134 MPV 9.6 Neutrophils % Lymphocytes % Monocytes % Eosinophils % Basophils % INR 3.99 H PTT (Actin FS) 43.0 H Puncture Site ABG pH ABG pCO2 at Pt Temp ABG pO2 at Pt Temp ABG HCO3 ABG O2 Sat (Measured) ABG O2 Content ABG Base Excess Brian Test O2 Delivery Device Oxygen Flow Rate Vent Mode Vent Rate Mechanical Rate PEEP Pressure Support Vent Sodium 127 L Potassium 3.3 L D Chloride 87 L D Carbon Dioxide 24 Anion Gap 16 BUN 85 H Creatinine 2.5 H Creat Clearance w eGFR 25.10 POC Glucometer Random Glucose 560 H* D Lactic Acid Calcium 6.6 L* Phosphorus 3.0 D Magnesium 2.7 H D Total Bilirubin 0.8 D AST 27 D ALT 14 Alkaline Phosphatase 54 Creatine Kinase 102 Troponin I 0.26 H B-Natriuretic Peptide Total Protein 5.1 L D Albumin 2.4 L D Digoxin 03/18/17 03/18/17 03/18/17 02:00 05:10 05:15 WBC 5.3 RBC 4.10 Hgb 10.8 L Hct 35.0 L MCV 85.4 MCHC 31.0 L RDW 19.0 H Plt Count 137 MPV 8.4 D Neutrophils % 74.2 D Lymphocytes % 15.4 D Monocytes % 7.2 Eosinophils % 2.5 Basophils % 0.7 INR PTT (Actin FS) Puncture Site ABG pH ABG pCO2 at Pt Temp ABG pO2 at Pt Temp ABG HCO3 ABG O2 Sat (Measured) ABG O2 Content ABG Base Excess Brian Test O2 Delivery Device Oxygen Flow Rate Vent Mode Vent Rate Mechanical Rate PEEP Pressure Support Vent Sodium Potassium Chloride Carbon Dioxide Anion Gap BUN Creatinine Creat Clearance w eGFR POC Glucometer 169.75249 Random Glucose Lactic Acid 1.073 Calcium Phosphorus Magnesium Total Bilirubin AST ALT Alkaline Phosphatase Creatine Kinase Troponin I B-Natriuretic Peptide Total Protein Albumin Digoxin 03/18/17 03/18/17 03/18/17 05:15 05:15 07:18 WBC RBC Hgb Hct MCV MCHC RDW Plt Count MPV Neutrophils % Lymphocytes % Monocytes % Eosinophils % Basophils % INR 3.72 H PTT (Actin FS) 41.4 H Puncture Site ABG pH ABG pCO2 at Pt Temp ABG pO2 at Pt Temp ABG HCO3 ABG O2 Sat (Measured) ABG O2 Content ABG Base Excess Brian Test O2 Delivery Device Oxygen Flow Rate Vent Mode Vent Rate Mechanical Rate PEEP Pressure Support Vent Sodium 142 D Potassium 3.1 L Chloride 103 D Carbon Dioxide 27 Anion Gap 12 BUN 97 H Creatinine 2.6 H Creat Clearance w eGFR 23.99 POC Glucometer 100.08568 Random Glucose 101 D Lactic Acid Calcium 9.9 D Phosphorus 2.1 L D Magnesium 3.2 H Total Bilirubin 0.6 D AST 22 ALT 12 Alkaline Phosphatase 63 Creatine Kinase 113 Troponin I 0.23 H B-Natriuretic Peptide 6563.63 H Total Protein 5.7 L Albumin 2.7 L Digoxin 03/18/17 03/18/17 03/18/17 08:12 10:23 11:05 WBC RBC Hgb Hct MCV MCHC RDW Plt Count MPV Neutrophils % Lymphocytes % Monocytes % Eosinophils % Basophils % INR PTT (Actin FS) Puncture Site Right radial ABG pH 7.55 H ABG pCO2 at Pt Temp 27.6 L D ABG pO2 at Pt Temp 91.2 ABG HCO3 24.3 ABG O2 Sat (Measured) 98.3 ABG O2 Content 17.0 ABG Base Excess 3.0 H Brian Test Positive O2 Delivery Device Ot Oxygen Flow Rate 40 Vent Mode Ac Vent Rate 14 Mechanical Rate Esprit PEEP 5.0 Pressure Support Vent 550 Sodium Potassium Chloride Carbon Dioxide Anion Gap BUN Creatinine Creat Clearance w eGFR POC Glucometer 144.44752 Random Glucose Lactic Acid Calcium Phosphorus Magnesium Total Bilirubin AST ALT Alkaline Phosphatase Creatine Kinase 146 Troponin I 0.16 H D B-Natriuretic Peptide Total Protein Albumin Digoxin 03/18/17 12:10 WBC RBC Hgb Hct MCV MCHC RDW Plt Count MPV Neutrophils % Lymphocytes % Monocytes % Eosinophils % Basophils % INR PTT (Actin FS) Puncture Site ABG pH ABG pCO2 at Pt Temp ABG pO2 at Pt Temp ABG HCO3 ABG O2 Sat (Measured) ABG O2 Content ABG Base Excess Brian Test O2 Delivery Device Oxygen Flow Rate Vent Mode Vent Rate Mechanical Rate PEEP Pressure Support Vent Sodium Potassium Chloride Carbon Dioxide Anion Gap BUN Creatinine Creat Clearance w eGFR POC Glucometer 189.35029 Random Glucose Lactic Acid Calcium Phosphorus Magnesium Total Bilirubin AST ALT Alkaline Phosphatase Creatine Kinase Troponin I B-Natriuretic Peptide Total Protein Albumin Digoxin Active Medications Generic Name Dose Route Start Last Admin Trade Name Freq PRN Reason Stop Dose Admin Atorvastatin Calcium 80 mg 03/18/17 09:45 03/18/17 12:34 Lipitor - NGT 80 mg HS SARAH Administration Chlorhexidine Gluconate 1 applic 03/17/17 22:00 03/17/17 22:46 Hibiclens For Decolonization - TP 1 applic HS SARAH Administration Propofol 100 mls @ 4.082 mls/hr 03/17/17 15:30 03/18/17 15:42 Diprivan - IVPB 10.206 mls/hr TITR SARAH Administration Protocol 5 MCG/KG/MIN Sodium Chloride 1,000 mls @ 100 mls/hr 03/17/17 18:30 03/18/17 09:04 Normal Saline - IV 100 mls/hr ASDIR SARAH Administration Midazolam HCl 100 mg/ Sodium 100 mls @ 2 mls/hr 03/17/17 18:45 03/17/17 19:32 Chloride IVPB 2 mls/hr TITR SARAH Administration Protocol 2 MG/HR Insulin Human Regular 100 100 mls @ 14.6 mls/hr 03/18/17 03:45 03/18/17 07:23 units/ Sodium Chloride IVPB 0 units/kg/hr TITR SARAH Titration Protocol 0.1 UNITS/KG/HR Dopamine HCl/Dextrose 250 mls @ 27.386 mls/hr 03/18/17 08:15 03/18/17 15:45 Dopamine 400 Mg/D5w - IVPB 43.817 mls/hr TITR SARAH Administration Protocol 5 MCG/KG/MIN Vecuronium [place] 50 mg/ 250 mls @ 43.81 mls/hr 03/18/17 08:37 03/18/17 10:28 Dextrose IVPB 0 mcg/kg/min TITR SARAH Titration Protocol 1 MCG/KG/MIN Mupirocin 1 applic 03/17/17 22:00 03/18/17 10:28 Bactroban Ointment (For Decolonization) - NS 03/22/17 21:59 1 applic BID SARAH Administration Pantoprazole Sodium 40 mg 03/18/17 10:00 03/18/17 10:31 Protonix 40mg Ivpb (Pre-Docked) IVPB 40 mg DAILY SARAH Administration Pneumococcal 13-Valent Conj Vacc 0.5 ml 03/18/17 10:00 Prevnar 13 Syringe - IM 03/18/17 10:01 .ONCE ONE ASSESSMENT/PLAN: 76M with multiple medical problems and poor functional status presents [facility] the ED from the [facility] for cardiac arrest. Cardiac arrest: pacemaker interrogation shows Vfib Hypothermia protocol to be completed this evening cardiology consult appreciated continue sedation vecuronium PRN ABG per hypothermia protocol continue dopamine stop Trending cardiac enzymes Echo reviewed-severe TR LVEF WNL right sided systolic dysfunction ABG in AM continue ventilatory support will be evaluated by warehouse checker CHF: Per Echo from pilling machine operator and echo done here he has normal LV systolic function with dilated RV and mild to mod RV systolic dysfunction has severe tricuspid regurgitation Cardiology consult appreciated no diuresis for now but may need diuresis prior to extubation Non ischemic CAD/Non ischemic cardiomyopathy: Echo reviewed start lipitor tonight COPD: per family patient has an oxygen tank at home and has not had a formal COPD diagnosis but uses the oxygen PRN for shortness of breath and is not on it continuously continue ventilatory support for now HTN: hold antihypertensives for now as patient is on dopamine Afib: patient on coumadin INR supratherapeutic hold coumadin for now Digoxin if HR increases Digoxin level within range CKD stage 3: at baseline per pilling machine operator Cr 2.7 in march 2016 renally dose all medications monitor Cr Hyperglycemia: noted to have a blood glucose >500 on chemistry last night and he was started on insulin gtt. I believe this was an error and the blood was drawn proximally to where drips were running which had dextrose containing fluids as all electrolytes were abnormal and were back to baseline on repeat labs. patient also needed a push of D50 for hyperglycemia. will send HbA1c as no documented history of diabetes HLD: lipitor 80mg HS send lipid panel with morning labs Prostate Ca: not currently active outpatient follow up Obstructive Sleep Apnea: on vent for now BiPAP at night when extubated Pulmonary hypertension Glaucoma: outpatient follow up FEN: NS @ 100ml/hr hypokalemia-replete potassium hypophosphatemia-replete phosphorus npo-possible tube feeds tomorrow PPx: INR supratherapeutic-Check Dupplex US of bilateral lower extremities to r/o DVT given RLE circumference greater than left protonix PT consult when able to participate Visit type - Emergency Visit Emergency Visit: Yes ED Registration Date: 03/17/17 Care time: The patient presented to the Emergency Department on the above date and was hospitalized for further evaluation of their emergent condition. - New Patient This patient is new to me today: No - Critical Care Critical Care patient: Yes Total Critical Care Time (in minutes): 75 (includes 30 minutes speaking to and daughter ) Critical Care Statement: The care of this patient involved high complexity decision making to prevent further life threatening deterioration of the patient 's condition and/or to evalute & treat vital organ system(s) failure or risk of failure. - Discharge Referral Referred to [facility] No
[2017-03-18] MEDS ORDERED: WATER IVPB ONE (18:26)
[2017-03-18] MEDS ORDERED: DEXTROSE 5% IVPB ONE (18:26)
[2017-03-18] MEDS ORDERED: AMIODARONE HCL IVPB ONE (18:26)
[2017-03-18] MEDS ORDERED: AMIODARONE HCL INJECTION 450 MG in DEXTROSE 5%-WATER - 241 ML IVPB SCH (19:00)
[2017-03-18] MEDS ORDERED: AMIODARONE HCL 150 MG/3 ML VIAL ONE (19:00)
[2017-03-18] MEDS: MIDAZOLAM 100 MG in SODIUM CHLORIDE 100 ML IVPB SCH (19:16)
[2017-03-18] MEDS ORDERED: DOPAMINE 400 MG/D5W - 250 ML IVPB ONE (19:33)
[2017-03-18] MEDS ORDERED: PROPOFOL 100 ML ONE (20:23)
--- NOTE | 2017-03-18 21:32 | CON.CARD ---
Consult Consult Specialty:: Cardiac Electrophysiology Referred by:: Dr. Hayden Reason for Consultation:: Cardiac Arrest - History of Present Illness Chief Complaint: Cardiac Arrest History of Present Illness: Mr. Cortes is a 76 year old male with a pmh of atrial fibrillation s/p AV sumit ablation and MDT ENVIRONMENTAL OFFICER-P implant 03/07/2010 s/p PPM pulse generator replacement 02/27/2017, severe TR, non-obstructive CAD, CRI, htn, inc chol, cpap who was brought in after cardiac arrest in his retirement. The patient was performing leg exercises when he suddenly collapsed, ACLS was instituted and the patient was shocked. Amiodarone 150 mg was given by EMS. He was brought into the ER for further evaluation. He was intubated in the ER and transferred to the ICU. He is presently on a dopamine gtt and sedation. He is undergoing cooling protocol. Echocardiogram has demonstrated normal LV systolic function. Interrogation of his pacemaker demonstrated an episode of VT followed by an episode of VF. BNP elevated around 6000 and troponin minimally elevated in setting of CRI and ACLS. 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 No: Deep Vein Thrombosis Pulmonary: Yes: COPD, Sleep Apnea Gastrointestinal: No: GI Bleed Renal/: Yes: Renal Inusuff Endocrine: No: Hyperthyroidism, Hypothyroidism - Past Surgical History Past Surgical History: Yes: Permanent Pacemaker - Alcohol/Substance Use Hx Alcohol Use: No (Unable to obtain Pt intubated and sedated) - Smoking History Smoking history: Unknown if ever smoked (Pt intubated and sedated) - Social History Usual Living Arrangement: With Spouse Home Medications - Allergies Allergies/Adverse Reactions: Allergies Allergy/AdvReac Type Severity Reaction Status Date / Time No Known Allergies Allergy Verified 03/17/17 14:59 - Home Medications Home Medications: Ambulatory Orders Allopurinol 300 mg PO DAILY 03/17/17 Digoxin [Lanoxin -] 0.125 mg PO DAILY 03/17/17 Docusate Sodium [Colace -] 300 mg PO HS 03/17/17 Ferrous Sulfate 650 mg PO BID 03/17/17 Furosemide [Lasix -] 80 mg PO DAILY 03/17/17 Latanoprost 0.005% Eye Drops [Xalatan 0.005% Eye Drops -] 1 drop OU HS 03/17/17 Metolazone [Zaroxolyn -] 2.5 mg PO AM 03/17/17 Nystatin Cream [Mycostatin] 1 applic TP BID 03/17/17 Polyethylene Glycol 3350 [Miralax (For Daily Use) -] 17 gm PO DAILY 03/17/17 Sennosides [Evac-U-Gen] 2 tab PO DAILY 03/17/17 Simvastatin [Zocor -] 80 mg PO HS 03/17/17 Sod Lactate/Amm Lact/Pot Lact [Amlactin Ultra Body Cream] 1 applic TP BID Triamcinolone 0.1% Cream [Aristocort] 1 applic TP BID 03/17/17 Warfarin Na [Coumadin -] 7.5 mg PO Q7D 03/17/17 Warfarin Sodium [Coumadin] 5 mg PO ASDIR 03/17/17 Family Disease History - Family Disease History Family History: Unable to Obtain Review of Systems Unable to obtain ROS, reason: patient condition - Risk Factors Known Risk Factors: Yes: Hypercholesterolemia, Hypertension Vital Signs: Vital Signs Temperature 92.1 F L 03/18/17 18:05 Pulse Rate 60 03/18/17 20:00 Respiratory Rate 20 03/18/17 20:00 Blood Pressure 116/73 03/18/17 20:00 O2 Sat by Pulse Oximetry (%) 100 03/18/17 10:24 Constitutional: Yes: Well Nourished, Other (intubated and sedated) HENT: Yes: Atraumatic, Normocephalic Respiratory: Yes: Diminished, Mechanically Ventilated, Rhonchi Gastrointestinal: Yes: Normal Bowel Sounds, Soft, Abdomen, Obese Cardiovascular: Yes: Regular Rate and Rhythm Heart Sounds: Yes: S1, S2 Murmur: Yes: Systolic Murmur, Grade 3 Edema: Yes Edema: LLE: 2+, RLE: 2+ Neurological: Yes: Other (sedated) - Other Data Labs, Other Data: CBC, BMP 03/18/17 05:15 03/18/17 05:15 INR, PTT INR 3.72 (0.82-1.09) H 03/18/17 05:15 Troponin, BNP 03/18/17 03/18/17 03/18/17 02:00 05:15 10:23 Troponin I 0.26 H 0.23 H 0.16 H D B-Natriuretic Peptide 6563.63 H Troponin, BNP 03/18/17 03/18/17 03/18/17 02:00 05:15 10:23 Troponin I 0.26 H 0.23 H 0.16 H D B-Natriuretic Peptide 6563.63 H Echo: Report Reviewed Ejection Fraction %: LVEF > or = 40 % Imaging - Results Chest X-ray: Report Reviewed, Image Reviewed EKG: Image Reviewed Problem List - Problems (1) Cardiac arrest Code(s): I46.9 - CARDIAC ARREST, CAUSE UNSPECIFIED (2) HTN (hypertension) Code(s): I10 - ESSENTIAL (PRIMARY) HYPERTENSION (3) Acute on chronic diastolic CHF (congestive heart failure) Code(s): I50.33 - ACUTE ON CHRONIC DIASTOLIC (CONGESTIVE) HEART FAILURE (4) Hyperkalemia Code(s): E87.5 - HYPERKALEMIA (5) Hyperlipidemia Code(s): E78.5 - HYPERLIPIDEMIA, UNSPECIFIED (6) 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 hypertension Code(s): I27.2 - OTHER SECONDARY PULMONARY HYPERTENSION Assessment/Plan 03/18/2017: JVD EPS: the patient has a history of chronic atrial fibrillation s/p AVN ablation with ENVIRONMENTAL OFFICER-P implant and pulse generator change 02/2017. inexio. device interrogation reveals VT and VF. the patient was shocked on the field and given a bolus of amiodarone. presently in the ICU on dopamine and therapeutic cooling protocol. sedated. neurologic status not confirmed. echo demonstrated normal LV systolic function with moderate pulmonary hypertension/dilated RV and severe TR. right sided findings likely secondary to sleep apnea. renal insufficiency with creatinine of 2.6. chronic renal insufficiency. unable to obtain cardiac catheterization at this time for ischemic eval due to risk of renal failure. - keep k 4-4.5, mg 2-2.5 - monitor neurologic status as therapeutic hypothermia is completed and sedation is weened - titrate off dopamine gtt. would start beta-yara therapy when feasible - start amiodarone gtt with loading and then 400 mg po/ngt q12 x 7 days and then daily - check tft's. - goals of care/advanced directives should be discussed particularly since pt/ family were previously considering palliative care - consideration for RV defibrillator lead placement for secondary prevention should the patient regain functioning neurologic status - care as per cardiology, primary services CC: 65 minutes Thank you for allowing me to participate in the care of your patient. Please call with any questions. Camron Bello MD [phone]
[2017-03-18] MEDS: CHLORHEXIDINE GLUCONATE 0.12% 15ML CUP MM SCH (22:03)
[2017-03-18] MEDS: CHLORHEXIDINE GLUCONATE 4% CLEANSER FOR DECOLONIZATION TP SCH (22:06)
[2017-03-19] MEDS ORDERED: AMIODARONE HCL INJECTION 450 MG in DEXTROSE 5%-WATER - 241 ML IVPB SCH (01:00)
[2017-03-19] MEDS: INSULIN REGULAR 100 UNITS in SODIUM CHLORIDE 99 ML IVPB SCH (04:03)
[2017-03-19 06:37] LABS: BASOPHIL 0.3 % (0-2.0); EOSINOPHIL 1.7 % (0-4.5); MCH 26.5 pg (25.7-33.7); MCHC 32.6 g/dl (32.0-35.9); MEAN CELL VOLUME 81.5 fl (80-96); MEAN PLT VOLUME 8.6 fl (7.5-11.1); NEUTROPHILS 80.8 % (42.8-82.8); PLATELET COUNT 187 K/MM3 (134-434); RDW 18.9 % (11.9-15.9); WHITE BLOOD COUNT 5.5 K/mm3 (4.0-10.0)
[2017-03-19 06:46] LABS: INR 3.66 (0.82-1.09); PROTHROMBIN TIME (PATIENT) 41.3 SEC (9.98-11.88)
[2017-03-19 06:48] LABS: ACTIVATED PTT 41.9 SECONDS (26.9-34.4)
[2017-03-19 06:58] LABS: CHOLESTEROL 98 mg/dL (50-200)
[2017-03-19 06:59] LABS: ALBUMIN 2.6 g/dl (3.4-5.0); CALCIUM 7.8 mg/dL (8.5-10.1); MAGNESIUM 2.9 mg/dL (1.8-2.4)
[2017-03-19 07:01] LABS: LDL CHOLESTEROL (ONLY SJRH) 38 mg/dL (5-100)
[2017-03-19 07:02] LABS: BILIRUBIN,TOTAL 0.8 mg/dL (0.2-1.0); COCKROFT - GAULT 49.83; CREATININE 2.5 mg/dL (0.7-1.3); TOT PROT 5.9 g/dl (6.4-8.2)
[2017-03-19 07:51] LABS: ALLENS TEST POSITIVE; ART PUNCT SITE LEFT RADIAL; ARTERIAL BLD GAS O2 SATURATION 98.5 % (90-98.9); ARTERIAL BLOOD GAS HCO3 23.1 meq/L (22-26); LPM/O2% 40%; MECH. VENT. YES; PT. ON O2? YES; TYPE OF O2 VENTILATOR; VENT RATE 14; VT/PRESS 550
[2017-03-19 07:52] LABS: ARTERIAL BLOOD GAS pH 7.56 (7.35-7.45)
[2017-03-19] MEDS: MUPIROCIN 2% TOPICAL OINTMENT FOR DECOLONIZATION NS SCH ×2 (10:00→22:16)
[2017-03-19] MEDS ORDERED: PNEUMOC 13-VAL CONJ-DIP CRM/PF 0.5 ML DISP.SYRIN IM ONE (10:00)
[2017-03-19] MEDS: PANTOPRAZOLE SODIUM 40 MG/100 ML PRE-DOCKED IVPB SCH (10:30)
[2017-03-19] MEDS: CHLORHEXIDINE GLUCONATE 0.12% 15ML CUP MM SCH ×2 (11:30→22:15)
[2017-03-19] MEDS ORDERED: FUROSEMIDE 40 MG/4 ML INJECTABLE VIAL IVPUSH ONE ×2 (11:39→14:53)
--- NOTE | 2017-03-19 11:45 | PN ---
Physical Exam: SUBJECTIVE: Patient seen and examined at bed side in ICU. warming protocol, remains intubated, dedation vacation, tolerated cpap for 12 minuts. Now on IV amiodarone, with plans to supervisor policy change clerks to PO. Taper off IV dopamine as BP allows. echo sever TR regurage and right heart failure, clinically fluid overloaded. 60mg IV furosemide responded will given another dose at MAP of 75. Restrict fluids. OBJECTIVE: Vital Signs Period Temp Pulse Resp BP Sys/Krishnan Pulse Ox Last 24 Hr 91 F-93.9 F 50-97 16-21 98-132/64-85 100-100 GENERAL: intubated, light sedated, follow commands HEAD: Normal with no signs of trauma. EYES: PERRL, extraocular movements intact, sclera anicteric, conjunctiva clear. No ptosis. ENT: moist mucous NECK: Trachea midline, full range of motion, supple. LUNGS: Distant breath sounds, scattered rhonchi no wheezes, no crackles, no accessory muscle use. HEART: romelia and Regular rhythm, S1, S2 without murmur, rub or gallop. ABDOMEN: Soft, hypoactive BS, mild distended, no guarding, no rebound, no hepatosplenomegaly, no masses. EXTREMITIES: 2+ pulses, warm, well-perfused,+3 pitting edema R>L. NEUROLOGICAL:intubated, eyes open, follows simple commands. PSYCH: Normal mood, normal affect. SKIN: Warm, dry, normal turgor, no rashes or lesions noted Laboratory Results - last 24 hr 03/18/17 03/18/17 03/19/17 12:10 17:43 05:15 WBC 5.5 RBC 4.43 Hgb 11.8 Hct 36.1 MCV 81.5 MCHC 32.6 RDW 18.9 H Plt Count 187 D MPV 8.6 Neutrophils % 80.8 Lymphocytes % 10.0 D Monocytes % 7.2 Eosinophils % 1.7 Basophils % 0.3 INR PTT (Actin FS) Puncture Site Patient Temperature ABG pH ABG pCO2 at Pt Temp ABG pO2 at Pt Temp ABG HCO3 ABG O2 Sat (Measured) ABG O2 Sat (Calculated) ABG O2 Content ABG Base Excess Brian Test O2 Delivery Device Oxygen Flow Rate Vent Mode Vent Rate Mechanical Rate PEEP Pressure Support Vent Sodium Potassium Chloride Carbon Dioxide Anion Gap BUN Creatinine Creat Clearance w eGFR POC Glucometer [phone] Random Glucose Hemoglobin A1c % Calcium Phosphorus Magnesium Total Bilirubin AST ALT Alkaline Phosphatase Total Protein Albumin Triglycerides Cholesterol Total LDL Cholesterol HDL Cholesterol 03/19/17 03/19/17 03/19/17 05:15 05:15 05:15 WBC RBC Hgb Hct MCV MCHC RDW Plt Count MPV Neutrophils % Lymphocytes % Monocytes % Eosinophils % Basophils % INR 3.66 H PTT (Actin FS) 41.9 H Puncture Site Patient Temperature ABG pH ABG pCO2 at Pt Temp ABG pO2 at Pt Temp ABG HCO3 ABG O2 Sat (Measured) ABG O2 Sat (Calculated) ABG O2 Content ABG Base Excess Brian Test O2 Delivery Device Oxygen Flow Rate Vent Mode Vent Rate Mechanical Rate PEEP Pressure Support Vent Sodium 139 Potassium 4.1 D Chloride 103 Carbon Dioxide 25 Anion Gap 11 BUN 92 H Creatinine 2.5 H Creat Clearance w eGFR 25.10 POC Glucometer Random Glucose 137 H D Hemoglobin A1c % Calcium 7.8 L D Phosphorus 4.0 D Magnesium 2.9 H Total Bilirubin 0.8 D AST 21 ALT 9 L D Alkaline Phosphatase 70 Total Protein 5.9 L Albumin 2.6 L Triglycerides 110 Cholesterol 98 Total LDL Cholesterol 38 HDL Cholesterol 54 03/19/17 03/19/17 03/19/17 05:15 07:26 07:28 WBC RBC Hgb Hct MCV MCHC RDW Plt Count MPV Neutrophils % Lymphocytes % Monocytes % Eosinophils % Basophils % INR PTT (Actin FS) Puncture Site Cancelled Left radial Patient Temperature Cancelled ABG pH Cancelled 7.56 H ABG pCO2 at Pt Temp Cancelled 26.0 L ABG pO2 at Pt Temp Cancelled 101.0 H ABG HCO3 Cancelled 23.1 ABG O2 Sat (Measured) 98.5 ABG O2 Sat (Calculated) Cancelled ABG O2 Content 16.7 ABG Base Excess Cancelled 2.0 Brian Test Positive O2 Delivery Device Cancelled Ventilator Oxygen Flow Rate Cancelled 40% Vent Mode A/c Vent Rate 14 Mechanical Rate Yes PEEP 5.0 Pressure Support Vent 550 Sodium Potassium Chloride Carbon Dioxide Anion Gap BUN Creatinine Creat Clearance w eGFR POC Glucometer Random Glucose Hemoglobin A1c % 6.4 H Calcium Phosphorus Magnesium Total Bilirubin AST ALT Alkaline Phosphatase Total Protein Albumin Triglycerides Cholesterol Total LDL Cholesterol HDL Cholesterol Active Medications Generic Name Dose Route Start Last Admin Trade Name Freq PRN Reason Stop Dose Admin Amiodarone HCl 400 mg 03/19/17 19:00 Cordarone - PO 03/25/17 22:01 BID SARAH Amiodarone HCl 400 mg 03/26/17 10:00 Cordarone - PO DAILY SARAH Atorvastatin Calcium 80 mg 03/18/17 09:45 03/18/17 22:08 Lipitor - NGT 80 mg HS SARAH Administration Chlorhexidine Gluconate 1 applic 03/17/17 22:00 03/18/17 22:06 Hibiclens For Decolonization - TP 1 applic HS SARAH Administration Chlorhexidine Gluconate 15 ml 03/18/17 22:15 03/18/17 22:03 Peridex - MM 15 ml BID SARAH Administration Furosemide 60 mg 03/19/17 11:39 Lasix Injection - IVPUSH 03/19/17 11:40 ONCE ONE Propofol 100 mls @ 4.082 mls/hr 03/17/17 15:30 03/18/17 15:42 Diprivan - IVPB 10.206 mls/hr TITR SARAH Administration Protocol 5 MCG/KG/MIN Sodium Chloride 1,000 mls @ 100 mls/hr 03/17/17 18:30 03/18/17 18:42 Normal Saline - IV 100 mls/hr ASDIR SARAH Administration Midazolam HCl 100 mg/ Sodium 100 mls @ 2 mls/hr 03/17/17 18:45 03/18/17 19:16 Chloride IVPB Not Given TITR SARAH Protocol 2 MG/HR Insulin Human Regular 100 100 mls @ 14.6 mls/hr 03/18/17 03:45 03/19/17 04:03 units/ Sodium Chloride IVPB Not Given TITR SARAH Protocol 0.1 UNITS/KG/HR Dopamine HCl/Dextrose 250 mls @ 27.386 mls/hr 03/18/17 08:15 03/18/17 15:45 Dopamine 400 Mg/D5w - IVPB 43.817 mls/hr TITR SARAH Administration Protocol 5 MCG/KG/MIN Vecuronium [place] 50 mg/ 250 mls @ 43.81 mls/hr 03/18/17 08:37 03/18/17 10:28 Dextrose IVPB 0 mcg/kg/min TITR SARAH Titration Protocol 1 MCG/KG/MIN Amiodarone HCl 450 mg/ 250 mls @ 16.66 mls/hr 03/19/17 01:00 03/19/17 00:55 Dextrose IVPB 03/19/17 18:59 16.66 mls/hr TITR SARAH Administration Protocol 0.5 MG/MIN Mupirocin 1 applic 03/17/17 22:00 03/18/17 22:08 Bactroban Ointment (For Decolonization) - NS 03/22/17 21:59 1 applic BID SARAH Administration Pantoprazole Sodium 40 mg 03/18/17 10:00 03/18/17 10:31 Protonix 40mg Ivpb (Pre-Docked) IVPB 40 mg DAILY SARAH Administration Echocardiogram showing right ventricular dysfunction and severe tricuspid regurgitation. ASSESSMENT/PLAN: 76 year old male w/ a significant PMH of diastolic CHF (severely reduced RVEF of uncertain etiology; severely dilated RV on 02/2017 ECHO, per pt's weather algorithm scientist at [place]), (non-obstructive CAD by 2008 coronary angiogram) , Medtronic "biventricular pacemaker, COPD, HTN, HLD, Atrial Fibrillation, renal insufficiency, Morbid obesity, Prostate CA, Sleep apnea on O2, generalzied weakness (wheelchair-bound), Glaucoma BIBA from [facility] s/p Cardiac arrest. Cardiac arrest: pacemaker interrogation showed Vfib, Echo reviewed-severe TR LVEF WNL right sided systolic dysfunction warming still in progress sedation vacation continue ventilatory support will be evaluated by copy messenger ABG in AM CHF: Per Echo from weather algorithm scientist and echo done here he has normal LV systolic function with dilated RV and mild to mod RV systolic dysfunction has severe tricuspid regurgitation now on IV amiodarone, with plans to supervisor policy change clerks to PO. Taper off IV dopamine as BP allows. echo sever TR regurage and right heart failure, clinically fluid overloaded. 60mg IV furosemide responded will given another dose at MAP of 75. Restrict fluids. Non ischemic CAD/Non ischemic cardiomyopathy: cont Lipitor COPD: on home oxygen PRN, minimal activity, able to walk 10 steps from chary to bed, uses wheel chair device at home. continue ventilatory support for now broncio dilators HTN: hold antihypertensives for now as patient is on dopamine Afib: INR supratherapeutic hold coumadin for now Digoxin if HR increases Digoxin level within range CKD stage 3: at baseline per weather algorithm scientist Cr 2.7 in march 2016 renally dose all medications monitor Cr Hyperglycemia: A1C 6.4 Insulin sliding scale HLD: lipitor 80mg HS send lipid panel with morning labs Obstructive Sleep Apnea: on vent for now Pulmonary hypertension as above FEN:keep net negative fluid balance. [place] Blocking Operator consulted for tube feeds. npo-possible tube feeds tomorrow if unable to extubate PPx: INR supratherapeutic, PT consult when able to participate, Protonix Dispo: continue ICU monitor. Visit type - Emergency Visit Emergency Visit: Yes ED Registration Date: 03/17/17 Care time: The patient presented to the Emergency Department on the above date and was hospitalized for further evaluation of their emergent condition. - New Patient This patient is new to me today: No - Critical Care Critical Care patient: Yes Total Critical Care Time (in minutes): 47 Critical Care Statement: The care of this patient involved high complexity decision making to prevent further life threatening deterioration of the patient 's condition and/or to evalute & treat vital organ system(s) failure or risk of failure.
--- NOTE | 2017-03-19 11:48 | PN ---
Progress Note, Physician Chief Complaint: Pt intubated; opens eyes to verbal queries; moves right hand slightly History of Present Illness: The patient is a 76 year old black male, with a significant past medical history of diastolic CHF (severely reduced RVEF of uncertain etiology; severely dilated RV on 02/2017 ECHO, per pt's managing editor at [place]), (non- obstructive CAD by 2008 coronary angiogram), Medtronic "biventricular pacemaker , COPD, HTN, HLD, Atrial Fibrillation, renal insufficiency, Morbid obesity, Prostate CA, Sleep apnea on O2, generalzied weakness (wheelchair-bound), Glaucoma BIBA from [facility] s/p Cardiac arrest. As per EMS, the patient was initially seated in PT doing leg exercises when he became unresponsive. Patient was brought back into his room in the [place] and chest compressions were initiated by nursing staff. Down time was between 4-5 minutes. patient was shocked once and ROSC was noted. As per EMS, patient was given 150 mg of Amiodarone in the field and was brought into the ED for further evaluation. Upon arrival to the ED, patients (health care proxy) gave consent to intubate over the telephone. 2:48 PM- 20 mg of Etomidate given through IV 2:49 PM- 150 mg of Succinylcholine given through IV 2:50 PM- Patient intubated with 7.5 ET tube, positioned 24 cm at the lip Pt's says pt is followed closely by [place] [facility] and cardiac groups. I spoke by telephone with pt's managing editor, who provided much of the above history. - Current Medication List Current Medications: Active Medications Amiodarone HCl (Cordarone -) 400 mg PO BID [facility] Stop: 03/25/17 22:01 Amiodarone HCl (Cordarone -) 400 mg PO DAILY [facility] Atorvastatin Calcium (Lipitor -) 80 mg NGT [facility] Last Admin: 03/18/17 22:08 Dose: 80 mg Chlorhexidine Gluconate (Hibiclens For Decolonization -) 1 applic TP [facility] Last Admin: 03/18/17 22:06 Dose: 1 applic Chlorhexidine Gluconate (Peridex -) 15 ml MM BID [facility] Last Admin: 03/18/17 22:03 Dose: 15 ml Propofol (Diprivan -) 100 mls @ 4.082 mls/hr IVPB TITR SARAH; 5 MCG/KG/MIN PRN Reason: Protocol Last Admin: 03/18/17 15:42 Dose: 10.206 mls/hr Sodium Chloride (Normal Saline -) 1,000 mls @ 100 mls/hr IV ASDIR SARAH Last Admin: 03/18/17 18:42 Dose: 100 mls/hr Midazolam HCl 100 mg/ Sodium (Chloride) 100 mls @ 2 mls/hr IVPB TITR SARAH; 2 MG/ HR PRN Reason: Protocol Last Admin: 03/18/17 19:16 Dose: Not Given Insulin Human Regular 100 (units/ Sodium Chloride) 100 mls @ 14.6 mls/hr IVPB TITR SARAH; 0.1 UNITS/KG/HR PRN Reason: Protocol Last Admin: 03/19/17 04:03 Dose: Not Given Dopamine HCl/Dextrose (Dopamine 400 Mg/D5w -) 250 mls @ 27.386 mls/hr IVPB TITR SARAH; 5 MCG/KG/MIN PRN Reason: Protocol Last Admin: 03/18/17 15:45 Dose: 43.817 mls/hr Vecuronium [place] 50 mg/ (Dextrose) 250 mls @ 43.81 mls/hr IVPB TITR SARAH; 1 MCG/KG/MIN PRN Reason: Protocol Last Titration: 03/18/17 10:28 Dose: 0 mcg/kg/min Amiodarone HCl 450 mg/ (Dextrose) 250 mls @ 16.66 mls/hr IVPB TITR SARAH; 0.5 MG/ MIN PRN Reason: Protocol Stop: 03/19/17 18:59 Last Admin: 03/19/17 00:55 Dose: 16.66 mls/hr Mupirocin (Bactroban Ointment (For Decolonization) -) 1 applic NS BID SARAH Stop: 03/22/17 21:59 Last Admin: 03/18/17 22:08 Dose: 1 applic Pantoprazole Sodium (Protonix 40mg Ivpb (Pre-Docked)) 40 mg IVPB DAILY [facility] Last Admin: 03/18/17 10:31 Dose: 40 mg - Objective Vital Signs: Vital Signs Temperature 93.9 F L 03/19/17 06:00 Pulse Rate 63 03/19/17 10:05 Respiratory Rate 17 03/19/17 09:40 Blood Pressure 98/64 03/19/17 06:00 O2 Sat by Pulse Oximetry (%) 100 03/19/17 10:05 Constitutional: Yes: Other (intubated; problematic assessment) Eyes: Yes: WNL HENT: Yes: Other Neck: Yes: Decreased ROM Cardiovascular: Yes: S1 (split) Respiratory: Yes: Mechanically Ventilated, Poor Air Entry, Rales Gastrointestinal: Yes: Soft Genitourinary: No: Anuria Musculoskeletal: Yes: Joint Swelling, Muscle Weakness Extremities: Yes: Cool Edema: Yes Edema: LLE: 2+, RLE: 2+ Peripheral Pulses WNL: No Peripheral Pulses: Left Doralis Pedis: 1+, Right Dorsalis Pedis: 1+ Integumentary: Yes: Venous Stasis Changes, Other (marked hyperpigmentation of the LEs to the knees) Neurological: Yes: Alert, Weakness Psychiatric: Yes: WNL Labs: CBC, BMP 03/19/17 05:15 03/19/17 05:15 INR, PTT INR 3.66 (0.82-1.09) H 03/19/17 05:15 - ....Imaging Chest X-ray: Image Reviewed (no significant change (marked left-sided effusion/ infiltrate)) Problem List - Problems (1) Cardiac arrest Assessment/Plan: Now on IV amiodarone, with plans to foreign exchange services manager to PO. Taper off IV dopamine as BP allows. F/u Is and Os, respiratory response to IV furosemide. Code(s): I46.9 - CARDIAC ARREST, CAUSE UNSPECIFIED (2) Acute on chronic diastolic CHF (congestive heart failure) Assessment/Plan: see under "cardiac arrest'. Code(s): I50.33 - ACUTE ON CHRONIC DIASTOLIC (CONGESTIVE) HEART FAILURE (3) Hyperlipidemia Assessment/Plan: high-dose statin. Code(s): E78.5 - HYPERLIPIDEMIA, UNSPECIFIED (4) Sleep apnea Code(s): G47.30 - SLEEP APNEA, UNSPECIFIED (5) HTN (hypertension) Code(s): I10 - ESSENTIAL (PRIMARY) HYPERTENSION (6) 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 hypertension Code(s): I27.2 - OTHER SECONDARY PULMONARY HYPERTENSION (7) Hyperkalemia Code(s): E87.5 - HYPERKALEMIA (8) Anemia Code(s): D64.9 - ANEMIA, UNSPECIFIED Assessment/Plan CC time spent: 45 minutes
--- NOTE | 2017-03-19 11:50 | PN ---
Teaching Attending Note Name of Resident: Anthony Lawton ATTENDING PHYSICIAN STATEMENT I saw and evaluated the patient. I reviewed the resident's note and discussed the case with the resident. I agree with the resident's findings and plan as documented. SUBJECTIVE: unable to obtain hx . no events over night OBJECTIVE: Intubated , sedated, round pupils 3 mm in diameter, no JVD , ET tube in , resists eye opening CV: RRR, no mRG Lungs ; decreased breath sounds at bases, rales heard Abd : obese,hypoactive BS . abd wall edema on lower abdomen Ext : 3+ pitting edema up to lower part of abd wall, R leg circumference > L. chronic hyperpigmentation and skin thickening . ASSESSMENT AND PLAN: 76 y/o man with h/o Severe cardiomypathy( non ischemic ) ,with severely reduced EF, and PULm HTN, Diastolic dysfunction , A fib on AC, who presented with cardiac arrest ( V fib ) [facility]- S/P cardiac arrest: due to severe R sided cardiomyopathy. off cooling protocol, resists eye opening today. dopamine requirement went down. no events on tele - cont to taper dopamine - cont amio gtt at 0.5 for total 18 hours, and start amio po /OGT 400 BID x 1 week then 400 daily after then - echo reviewed - CAse was d/w Dr. Bello last night , will assess pt and family wishes regarding an RV defibrillator and cardiac cath after extubation 2- Severe non-ischemic cardiomypoathy, with acute on chronic systolic and diastolic heart failure - D/W Dr. Campos , Start IV lasix . - monitor I&Os - await further card Recs . appreciate help 3- Coumadin coagulopathy: monitor INR ( 3.66) and hold coumadin 4- A fib: on coumadin at home.tachycardia resolved, now paced - hold off AV sumit blockers due to hypotension . hold off dig due to renal function 5- CKD : Cr at base line DVT px : iNR 3 ICU level of care Critical Care Total Critical Care Time (in minutes): 40 Critical Care Statement: The care of this patient involved high complexity decision making to prevent further life threatening deterioration of the patient 's condition and/or to evalute & treat vital organ system(s) failure or risk of failure.
--- NOTE | 2017-03-19 11:51 | PN ---
Teaching Attending Note Name of Resident: Veto Velazquez ATTENDING PHYSICIAN STATEMENT I saw and evaluated the patient. I reviewed the resident's note and discussed the case with the resident. I agree with the resident's findings and plan as documented. SUBJECTIVE: Pt seen and examined in the ICU. s/p hypothermia protocol, remains intubated, sedated. Echocardiogram showing right ventricular dysfunction and severe tricuspid regurgitation. Remains on dopamine gtt for BP support, started on amiodarone gtt. OBJECTIVE: Last Vital Signs Temp Pulse Resp BP Pulse Ox 93.9 F L 63 17 98/64 100 03/19/17 06:00 03/19/17 10:05 03/19/17 09:40 03/19/17 06:00 03/19/17 10:05 Intake & Output 03/16/17 03/17/17 03/18/17 03/19/17 23:59 23:59 23:59 23:59 Intake Total 69335.7 Output Total 1100 2000 450 Balance -1100 21220.7 -450 Weight 322 lb 322 lb 319 lb Gen: intubated, sedated Heart: RRR, romelia Lung: distant breath sounds, scattered rhonchi Abd: soft, nontender Ext: + edema CBC, BMP 03/19/17 05:15 03/19/17 05:15 Active Medications Amiodarone HCl (Cordarone -) 400 mg PO BID [facility] Stop: 03/25/17 22:01 Amiodarone HCl (Cordarone -) 400 mg PO DAILY SARAH Atorvastatin Calcium (Lipitor -) 80 mg NGT HS [facility] Last Admin: 03/18/17 22:08 Dose: 80 mg Chlorhexidine Gluconate (Hibiclens For Decolonization -) 1 applic TP HS [facility] Last Admin: 03/18/17 22:06 Dose: 1 applic Chlorhexidine Gluconate (Peridex -) 15 ml MM BID SARAH Last Admin: 03/18/17 22:03 Dose: 15 ml Furosemide (Lasix Injection -) 60 mg IVPUSH ONCE ONE Stop: 03/19/17 11:40 Propofol (Diprivan -) 100 mls @ 4.082 mls/hr IVPB TITR SARAH; 5 MCG/KG/MIN PRN Reason: Protocol Last Admin: 03/18/17 15:42 Dose: 10.206 mls/hr Sodium Chloride (Normal Saline -) 1,000 mls @ 100 mls/hr IV ASDIR SARAH Last Admin: 03/18/17 18:42 Dose: 100 mls/hr Midazolam HCl 100 mg/ Sodium (Chloride) 100 mls @ 2 mls/hr IVPB TITR SARAH; 2 MG/ HR PRN Reason: Protocol Last Admin: 03/18/17 19:16 Dose: Not Given Insulin Human Regular 100 (units/ Sodium Chloride) 100 mls @ 14.6 mls/hr IVPB TITR SARAH; 0.1 UNITS/KG/HR PRN Reason: Protocol Last Admin: 03/19/17 04:03 Dose: Not Given Dopamine HCl/Dextrose (Dopamine 400 Mg/D5w -) 250 mls @ 27.386 mls/hr IVPB TITR SRAAH; 5 MCG/KG/MIN PRN Reason: Protocol Last Admin: 03/18/17 15:45 Dose: 43.817 mls/hr Vecuronium [place] 50 mg/ (Dextrose) 250 mls @ 43.81 mls/hr IVPB TITR SARAH; 1 MCG/KG/MIN PRN Reason: Protocol Last Titration: 03/18/17 10:28 Dose: 0 mcg/kg/min Amiodarone HCl 450 mg/ (Dextrose) 250 mls @ 16.66 mls/hr IVPB TITR SARAH; 0.5 MG/ MIN PRN Reason: Protocol Stop: 03/19/17 18:59 Last Admin: 03/19/17 00:55 Dose: 16.66 mls/hr Mupirocin (Bactroban Ointment (For Decolonization) -) 1 applic NS BID [facility] Stop: 03/22/17 21:59 Last Admin: 03/18/17 22:08 Dose: 1 applic Pantoprazole Sodium (Protonix 40mg Ivpb (Pre-Docked)) 40 mg IVPB DAILY [facility] Last Admin: 03/18/17 10:31 Dose: 40 mg ASSESSMENT AND PLAN: s/p Vfib Cardiac Arrest Acute on Chronic Hypoxic Respiratory Failure Acute on Chronic Diastolic Heart Failure Severe Pulmonary HTN s/p BiV PPM CAD +Troponins Atrial Fibrillation HTN Hyperlipidemia DM COPD Morbid Obesity Obstructive Sleep Apnea - s/p hypothermia protocol - s/p PPM interrogation confirming VT/VF - keep K>4, Mg>2 - continue anticoagulation, keep INR 2-3 - lasix today - titrate dopamine gtt to maintain MAP >65 - poor visualization of left hemithorax on bedside ultrasound, will need CT chest when more stable - taper FiO2 to keep SpO2 >90% - hold sedation to assess mental status - spontaneous breathing trials once mental status improves - start enteral feeds - DVT/GI prophylaxis - continue ICU monitoring critical care time spent in reviewing chart, evaluating patient and formulating plan 40 min
[2017-03-19] MEDS ORDERED: FUROSEMIDE 100 MG/10 ML INJECTABLE VIAL ONE ×2 (11:55→15:05)
[2017-03-19] MEDS: DOPAMINE 400 MG/D5W - 250 ML IVPB SCH (13:00)
--- NOTE | 2017-03-19 14:05 | MSN ---
Progress Note (SOAP) - Subjective Chief Complaint: MEDICAL STUDENT NOTE Pt intubated; facial grimace with chest palpation; History of Present Illness: The patient is a 76 year old black male, with a significant past medical history of diastolic CHF (severely reduced RVEF of uncertain etiology; severely dilated RV on 02/2017 ECHO, per pt's assembled wood products repairer at [place]), (non- obstructive CAD by 2008 coronary angiogram), [employer] "biventricular pacemaker , COPD, HTN, HLD, Atrial Fibrillation, renal insufficiency, Morbid obesity, Prostate CA, Sleep apnea on O2, generalzied weakness (wheelchair-bound), Glaucoma BIBA from [facility] s/p Cardiac arrest. As per EMS, the patient was initially seated in PT doing leg exercises when he became unresponsive. Patient was brought back into his room in the MD and chest compressions were initiated by nursing staff. Down time was between 4-5 minutes. patient was shocked once and ROSC was noted. As per EMS, patient was given 150 mg of Amiodarone in the field and was brought into the ED for further evaluation - Current Medications Current Medications: Active Medications Amiodarone HCl (Cordarone -) 400 mg PO BID [facility] Stop: 03/25/17 22:01 Amiodarone HCl (Cordarone -) 400 mg PO DAILY [facility] Atorvastatin Calcium (Lipitor -) 80 mg NGT HS [facility] Last Admin: 03/18/17 22:08 Dose: 80 mg Chlorhexidine Gluconate (Hibiclens For Decolonization -) 1 applic TP [facility] Last Admin: 03/18/17 22:06 Dose: 1 applic Chlorhexidine Gluconate (Peridex -) 15 ml MM BID [facility] Last Admin: 03/18/17 22:03 Dose: 15 ml Propofol (Diprivan -) 100 mls @ 4.082 mls/hr IVPB TITR SARAH; 5 MCG/KG/MIN PRN Reason: Protocol Last Admin: 03/18/17 15:42 Dose: 10.206 mls/hr Sodium Chloride (Normal Saline -) 1,000 mls @ 100 mls/hr IV ASDIR [facility] Last Admin: 03/18/17 18:42 Dose: 100 mls/hr Midazolam HCl 100 mg/ Sodium (Chloride) 100 mls @ 2 mls/hr IVPB TITR SARAH; 2 MG/ HR PRN Reason: Protocol Last Admin: 03/18/17 19:16 Dose: Not Given Insulin Human Regular 100 (units/ Sodium Chloride) 100 mls @ 14.6 mls/hr IVPB TITR SARAH; 0.1 UNITS/KG/HR PRN Reason: Protocol Last Admin: 03/19/17 04:03 Dose: Not Given Dopamine HCl/Dextrose (Dopamine 400 Mg/D5w -) 250 mls @ 27.386 mls/hr IVPB TITR SARAH; 5 MCG/KG/MIN PRN Reason: Protocol Last Admin: 03/18/17 15:45 Dose: 43.817 mls/hr Vecuronium Baldwin 50 mg/ (Dextrose) 250 mls @ 43.81 mls/hr IVPB TITR SARAH; 1 MCG/KG/MIN PRN Reason: Protocol Last Titration: 03/18/17 10:28 Dose: 0 mcg/kg/min Amiodarone HCl 450 mg/ (Dextrose) 250 mls @ 16.66 mls/hr IVPB TITR SARAH; 0.5 MG/ MIN PRN Reason: Protocol Stop: 03/19/17 18:59 Last Admin: 03/19/17 00:55 Dose: 16.66 mls/hr Mupirocin (Bactroban Ointment (For Decolonization) -) 1 applic NS BID [facility] Stop: 03/22/17 21:59 Last Admin: 03/18/17 22:08 Dose: 1 applic Pantoprazole Sodium (Protonix 40mg Ivpb (Pre-Docked)) 40 mg IVPB DAILY [facility] Last Admin: 03/18/17 10:31 Dose: 40 mg - Objective Vital Signs: Vital Signs Temperature 93.9 F L 03/19/17 06:00 Pulse Rate 63 03/19/17 10:05 Respiratory Rate 29 H 03/19/17 12:05 Blood Pressure 98/64 03/19/17 06:00 O2 Sat by Pulse Oximetry (%) 100 03/19/17 10:05 Constitutional: Yes: No Distress (Sedated) Eyes: Yes: PERRL HENT: Yes: WNL, Atraumatic, Normocephalic Respiratory: Yes: Mechanically Ventilated Gastrointestinal: Yes: Abdomen, Obese, Distention Genitourinary: Yes: Rid[place] Present Edema: Yes Edema: LLE: 2+, RLE: 2+ Labs Lab Results: CBC, BMP 03/19/17 05:15 03/19/17 05:15 Home Medication List Medication Instructions Recorded Confirmed Type Allopurinol 300 mg PO DAILY 03/17/17 03/17/17 History Digoxin [Lanoxin -] 0.125 mg PO DAILY 03/17/17 03/17/17 History Docusate Sodium [Colace -] 300 mg PO HS 03/17/17 03/17/17 History Ferrous Sulfate 650 mg PO BID 03/17/17 03/17/17 History Furosemide [Lasix -] 80 mg PO DAILY 03/17/17 03/17/17 History Latanoprost 0.005% Eye Drops 1 drop OU HS 03/17/17 03/17/17 History [Xalatan 0.005% Eye Drops -] Metolazone [Zaroxolyn -] 2.5 mg PO AM 03/17/17 03/17/17 History Nystatin Cream [Mycostatin] 1 applic TP BID 03/17/17 03/17/17 History Polyethylene Glycol 3350 [Miralax 17 gm PO DAILY 03/17/17 03/17/17 History (For Daily Use) -] Sennosides [Evac-U-Gen] 2 tab PO DAILY 03/17/17 03/17/17 History Simvastatin [Zocor -] 80 mg PO HS 03/17/17 03/17/17 History Sod Lactate/Amm Lact/Pot Lact 1 applic TP BID 03/17/17 03/17/17 History [Amlactin Ultra Body Cream] Triamcinolone 0.1% Cream 1 applic TP BID 03/17/17 03/17/17 History [Aristocort] Warfarin Na [Coumadin -] 7.5 mg PO Q7D 03/17/17 03/17/17 History Warfarin Sodium [Coumadin] 5 mg PO ASDIR 03/17/17 03/17/17 History Active Medications Generic Name Dose Route Start Last Admin Trade Name Freq PRN Reason Stop Dose Admin Amiodarone HCl 400 mg 03/19/17 19:00 Cordarone - PO 03/25/17 22:01 BID SARAH Amiodarone HCl 400 mg 03/26/17 10:00 Cordarone - PO DAILY [facility] Atorvastatin Calcium 80 mg 03/18/17 09:45 03/18/17 22:08 Lipitor - NGT 80 mg HS SARAH Administration Chlorhexidine Gluconate 1 applic 03/17/17 22:00 03/18/17 22:06 Hibiclens For Decolonization - TP 1 applic HS SARAH Administration Chlorhexidine Gluconate 15 ml 03/18/17 22:15 03/18/17 22:03 Peridex - MM 15 ml BID SARAH Administration Propofol 100 mls @ 4.082 mls/hr 03/17/17 15:30 03/18/17 15:42 Diprivan - IVPB 10.206 mls/hr TITR SARAH Administration Protocol 5 MCG/KG/MIN Sodium Chloride 1,000 mls @ 100 mls/hr 03/17/17 18:30 03/18/17 18:42 Normal Saline - IV 100 mls/hr ASDIR SARAH Administration Midazolam HCl 100 mg/ Sodium 100 mls @ 2 mls/hr 03/17/17 18:45 03/18/17 19:16 Chloride IVPB Not Given TITR SARAH Protocol 2 MG/HR Insulin Human Regular 100 100 mls @ 14.6 mls/hr 03/18/17 03:45 03/19/17 04:03 units/ Sodium Chloride IVPB Not Given TITR SARAH Protocol 0.1 UNITS/KG/HR Dopamine HCl/Dextrose 250 mls @ 27.386 mls/hr 03/18/17 08:15 03/18/17 15:45 Dopamine 400 Mg/D5w - IVPB 43.817 mls/hr TITR SARAH Administration Protocol 5 MCG/KG/MIN Vecuronium Baldwin 50 mg/ 250 mls @ 43.81 mls/hr 03/18/17 08:37 03/18/17 10:28 Dextrose IVPB 0 mcg/kg/min TITR SARAH Titration Protocol 1 MCG/KG/MIN Amiodarone HCl 450 mg/ 250 mls @ 16.66 mls/hr 03/19/17 01:00 03/19/17 00:55 Dextrose IVPB 03/19/17 18:59 16.66 mls/hr TITR SARAH Administration Protocol 0.5 MG/MIN Mupirocin 1 applic 03/17/17 22:00 03/18/17 22:08 Bactroban Ointment (For Decolonization) - NS 03/22/17 21:59 1 applic BID SARAH Administration Pantoprazole Sodium 40 mg 03/18/17 10:00 05/03/17 10:31 Protonix 40mg Ivpb (Pre-Docked) IVPB 40 mg DAILY SARAH Administration Assessment/Plan 76M with multiple medical problems and poor functional status presents to the ED from the senior living for cardiac arrest. Cardiac arrest: pacemaker interrogation showed Vfib Hypothermia protocol completed, warming still in progress cardiology consult appreciated continue sedation vecuronium PRN ABG per hypothermia protocol titrate off Dopamine as tolerated stop Trending cardiac enzymes Echo reviewed-severe TR LVEF WNL right sided systolic dysfunction ABG in AM continue ventilatory support will be evaluated by information engineer CHF: Per Echo from assembled wood products repairer and echo done here he has normal LV systolic function with dilated RV and mild to mod RV systolic dysfunction has severe tricuspid regurgitation Cardiology consult appreciated Lasix 60mg IV given today Non ischemic CAD/Non ischemic cardiomyopathy: Echo reviewed Lipitor was started COPD: per family patient has an oxygen tank at home and has not had a formal COPD diagnosis but uses the oxygen PRN for shortness of breath and is not on it continuously continue ventilatory support for now HTN: hold antihypertensives for now as patient is on dopamine Afib: patient on coumadin INR supratherapeutic hold coumadin for now Digoxin if HR increases Digoxin level within range CKD stage 3: at baseline per assembled wood products repairer Cr 2.7 in march 2016 renally dose all medications monitor Cr Hyperglycemia: A1C 6.4 Insulin sliding scale HLD: lipitor 80mg HS send lipid panel with morning labs Prostate Ca: not currently active outpatient follow up Obstructive Sleep Apnea: on vent for now BiPAP at night when extubated Pulmonary hypertension Glaucoma: outpatient follow up FEN: NS @ 100ml/hr npo-possible tube feeds tomorrow if unable to extubate PPx: INR supratherapeutic PT consult when able to participate Protonix MEDICAL STUDENT NOTE
[2017-03-19] MEDS ORDERED: ALBUTEROL SO4 2.5/IPRATROPIUM 0.5 INH SOL 3 ML VIAL.NEB. NEB PRN (15:05)
--- NOTE | 2017-03-19 15:54 | PN ---
Physical Exam: SUBJECTIVE: Patient seen and examined at bedside in the ICU remains intubated sedation held on CPAP OBJECTIVE: Vital Signs Period Temp Pulse Resp BP Sys/Krishnan Pulse Ox Last 24 Hr 92.1 F-93.9 F 50-97 16-29 98-124/64-78 97-100 GENERAL: intubated follows simple commands. able to track with eyes opens eyes to name squeezes hands and wiggles toes on command EYES: Pupils equal, round and reactive to light. Pinpoint LUNGS:bilateral coarse breath sounds. bronchial breath sounds HEART: Irregular ABDOMEN: Soft, nontender, not distended, umbilical hernia edematous UPPER EXTREMITIES: no edema. LOWER EXTREMITIES: 2+ pitting edema with evidence of chronic venous stasis right leg circumference greater than left leg circumference edema goes up to proximal lower extremities and the lower abdomen Laboratory Results - last 24 hr 03/18/17 03/19/17 03/19/17 17:43 05:15 05:15 WBC 5.5 RBC 4.43 Hgb 11.8 Hct 36.1 MCV 81.5 MCHC 32.6 RDW 18.9 H Plt Count 187 D MPV 8.6 Neutrophils % 80.8 Lymphocytes % 10.0 D Monocytes % 7.2 Eosinophils % 1.7 Basophils % 0.3 INR 3.66 H PTT (Actin FS) 41.9 H Puncture Site Patient Temperature ABG pH ABG pCO2 at Pt Temp ABG pO2 at Pt Temp ABG HCO3 ABG O2 Sat (Measured) ABG O2 Sat (Calculated) ABG O2 Content ABG Base Excess Brian Test O2 Delivery Device Oxygen Flow Rate Vent Mode Vent Rate Mechanical Rate PEEP Pressure Support Vent Sodium Potassium Chloride Carbon Dioxide Anion Gap BUN Creatinine Creat Clearance w eGFR POC Glucometer [id number] Random Glucose Hemoglobin A1c % Calcium Phosphorus Magnesium Total Bilirubin AST ALT Alkaline Phosphatase Total Protein Albumin Triglycerides Cholesterol Total LDL Cholesterol HDL Cholesterol 03/19/17 03/19/17 03/19/17 05:15 05:15 05:15 WBC RBC Hgb Hct MCV MCHC RDW Plt Count MPV Neutrophils % Lymphocytes % Monocytes % Eosinophils % Basophils % INR PTT (Actin FS) Puncture Site Patient Temperature ABG pH ABG pCO2 at Pt Temp ABG pO2 at Pt Temp ABG HCO3 ABG O2 Sat (Measured) ABG O2 Sat (Calculated) ABG O2 Content ABG Base Excess Brian Test O2 Delivery Device Oxygen Flow Rate Vent Mode Vent Rate Mechanical Rate PEEP Pressure Support Vent Sodium 139 Potassium 4.1 D Chloride 103 Carbon Dioxide 25 Anion Gap 11 BUN 92 H Creatinine 2.5 H Creat Clearance w eGFR 25.10 POC Glucometer Random Glucose 137 H D Hemoglobin A1c % 6.4 H Calcium 7.8 L D Phosphorus 4.0 D Magnesium 2.9 H Total Bilirubin 0.8 D AST 21 ALT 9 L D Alkaline Phosphatase 70 Total Protein 5.9 L Albumin 2.6 L Triglycerides 110 Cholesterol 98 Total LDL Cholesterol 38 HDL Cholesterol 54 03/19/17 03/19/17 07:26 07:28 WBC RBC Hgb Hct MCV MCHC RDW Plt Count MPV Neutrophils % Lymphocytes % Monocytes % Eosinophils % Basophils % INR PTT (Actin FS) Puncture Site Cancelled Left radial Patient Temperature Cancelled ABG pH Cancelled 7.56 H ABG pCO2 at Pt Temp Cancelled 26.0 L ABG pO2 at Pt Temp Cancelled 101.0 H ABG HCO3 Cancelled 23.1 ABG O2 Sat (Measured) 98.5 ABG O2 Sat (Calculated) Cancelled ABG O2 Content 16.7 ABG Base Excess Cancelled 2.0 Brian Test Positive O2 Delivery Device Cancelled Ventilator Oxygen Flow Rate Cancelled 40% Vent Mode A/c Vent Rate 14 Mechanical Rate Yes PEEP 5.0 Pressure Support Vent 550 Sodium Potassium Chloride Carbon Dioxide Anion Gap BUN Creatinine Creat Clearance w eGFR POC Glucometer Random Glucose Hemoglobin A1c % Calcium Phosphorus Magnesium Total Bilirubin AST ALT Alkaline Phosphatase Total Protein Albumin Triglycerides Cholesterol Total LDL Cholesterol HDL Cholesterol Active Medications Generic Name Dose Route Start Last Admin Trade Name Freq PRN Reason Stop Dose Admin Albuterol/Ipratropium 1 amp 03/19/17 15:05 Duoneb - NEB Q6H PRN SHORTNESS OF BREATH Amiodarone HCl 400 mg 03/19/17 19:00 Cordarone - PO 03/25/17 22:01 BID SARAH Amiodarone HCl 400 mg 03/26/17 10:00 Cordarone - PO DAILY SARAH Atorvastatin Calcium 80 mg 03/18/17 09:45 03/18/17 22:08 Lipitor - NGT 80 mg HS SARAH Administration Chlorhexidine Gluconate 1 applic 03/17/17 22:00 03/18/17 22:06 Hibiclens For Decolonization - TP 1 applic HS SARAH Administration Chlorhexidine Gluconate 15 ml 03/18/17 22:15 05/03/17 22:03 Peridex - MM 15 ml BID SARAH Administration Furosemide 60 mg 03/19/17 14:53 Lasix Injection - IVPUSH 03/19/17 14:54 ONCE ONE Propofol 100 mls @ 4.082 mls/hr 03/17/17 15:30 03/18/17 15:42 Diprivan - IVPB 10.206 mls/hr TITR SARAH Administration Protocol 5 MCG/KG/MIN Midazolam HCl 100 mg/ Sodium 100 mls @ 2 mls/hr 03/17/17 18:45 03/18/17 19:16 Chloride IVPB Not Given TITR SARAH Protocol 2 MG/HR Insulin Human Regular 100 100 mls @ 14.6 mls/hr 03/18/17 03:45 03/19/17 04:03 units/ Sodium Chloride IVPB Not Given TITR SARAH Protocol 0.1 UNITS/KG/HR Dopamine HCl/Dextrose 250 mls @ 27.386 mls/hr 03/18/17 08:15 03/18/17 15:45 Dopamine 400 Mg/D5w - IVPB 43.817 mls/hr TITR SARAH Administration Protocol 5 MCG/KG/MIN Amiodarone HCl 450 mg/ 250 mls @ 16.66 mls/hr 03/19/17 01:00 03/19/17 00:55 Dextrose IVPB 03/19/17 18:59 16.66 mls/hr TITR SARAH Administration Protocol 0.5 MG/MIN Mupirocin 1 applic 03/17/17 22:00 03/18/17 22:08 Bactroban Ointment (For Decolonization) - NS 03/22/17 21:59 1 applic BID SARAH Administration Pantoprazole Sodium 40 mg 03/18/17 10:00 03/18/17 10:31 Protonix 40mg Ivpb (Pre-Docked) IVPB 40 mg DAILY SARAH Administration CXR unchanged ASSESSMENT/PLAN: 76M with multiple medical problems and poor functional status [facility]. Cardiac arrest: pacemaker interrogation shows=ed both Vtach and Vfib Hypothermia protocol completed patient currently being rewarmed cardiology consult appreciated EP consult appreciated-started on amiodarone IV then will convert to 400mg PO tonight BID for 7 days then 400mg po daily indefinitely. will need to discuss Right heart cath and defibrillator with family and patient once extubated Did well on CPAP today lasix 60mg IV puch given continue sedation if will not be extubated ABG per hypothermia protocol continue dopamine and titrate as tolerated Echo reviewed-severe TR LVEF WNL right sided systolic dysfunction ABG in AM continue ventilatory support-wean to extubate CHF: Per Echo from bolt maker and echo done here he has normal LV systolic function with dilated RV and mild to mod RV systolic dysfunction has severe tricuspid regurgitation Cardiology consult appreciated lasix 60mg IV push given and reassess need for repeat dosing tonight Non ischemic CAD/Non ischemic cardiomyopathy: Echo reviewed continue lipitor COPD: per family patient has an oxygen tank at home and has not had a formal COPD diagnosis but uses the oxygen PRN for shortness of breath and is not on it continuously continue ventilatory support for now-wean to extubate HTN: hold antihypertensives for now as patient is on dopamine Afib: patient on coumadin INR supratherapeutic hold coumadin for now Digoxin if HR increases Digoxin level within range CKD stage 3: at baseline per bolt maker Cr 2.7 in march 2016 renally dose all medications monitor Cr-currently at baseline Hyperglycemia: HbA1c 6.4-consistent with prediabetes will need to be diet controlled and possible start medications as outpatient HLD: lipitor 80mg HS Lipid panel reviewed-lipids well controlled Prostate Ca: not currently active outpatient follow up Obstructive Sleep Apnea: on vent for now BiPAP at night when extubated Pulmonary hypertension Glaucoma: outpatient follow up FEN: stop IVF hypokalemia-resolved hypophosphatemia-resolved npo-possible tube feeds tomorrow if not extubated PPx: INR supratherapeutic-doppler US negative for DVT protonix PT consult when able to participate Visit type - Emergency Visit Emergency Visit: Yes ED Registration Date: 03/17/17 Care time: The patient presented to the Emergency Department on the above date and was hospitalized for further evaluation of their emergent condition. - New Patient This patient is new to me today: No - Critical Care Critical Care patient: Yes Total Critical Care Time (in minutes): 50 Critical Care Statement: The care of this patient involved high complexity decision making to prevent further life threatening deterioration of the patient 's condition and/or to evalute & treat vital organ system(s) failure or risk of failure. - Discharge Referral Referred to [facility] No
--- NOTE | 2017-03-19 17:31 | EKG ---
Test Reason : Blood Pressure : / mmHG Vent. Rate : 077 BPM Atrial Rate : 077 BPM P-R Int : 000 ms QRS Dur : 198 ms QT Int : 526 ms P-R-T Axes : 000 -51 096 degrees QTc Int : 595 ms Atrial-sensed ventricular-paced rhythm with prolonged AV conduction WITH OCCASIONAL AV dual-paced complexes ABNORMAL ECG WHEN COMPARED WITH ECG OF 17-MAR-2017 14:47, VENT. RATE HAS DECREASED BY 12 BPM Confirmed by LEONEL DELACRUZ MD ([id number]) on 03/19/2017 5:31:36 PM Referred By: Eda CULVER Confirmed By:LEONEL DELACRUZ MD
[2017-03-19] MEDS: MIDAZOLAM 100 MG in SODIUM CHLORIDE 100 ML IVPB SCH (19:24)
[2017-03-19] MEDS: AMIODARONE HCL 200 MG TABLET (FP) PO SCH ×2 (20:46→22:16)
[2017-03-19] MEDS: PROPOFOL 100 ML IVPB SCH (22:15)
[2017-03-19] MEDS: CHLORHEXIDINE GLUCONATE 4% CLEANSER FOR DECOLONIZATION TP SCH (22:17)
[2017-03-19] MEDS: ATORVASTATIN CA 80 MG TABLET (FP) NGT SCH (22:17)
[2017-03-20] MEDS ORDERED: HYDROmorphone HCL CARPU-JECT 1 MG/1 ML DISP.SYRIN ONE (03:14)
[2017-03-20 06:31] LABS: BASOPHIL 0.4 % (0-2.0); EOSINOPHIL 1.3 % (0-4.5); MCHC 31.9 g/dl (32.0-35.9); MEAN CELL VOLUME 81.6 fl (80-96); MEAN PLT VOLUME 8.7 fl (7.5-11.1); PLATELET COUNT 164 K/MM3 (134-434); RDW 19.3 % (11.9-15.9); WHITE BLOOD COUNT 8.8 K/mm3 (4.0-10.0)
[2017-03-20 06:39] LABS: PROTHROMBIN TIME (PATIENT) 49.2 SEC (9.98-11.88)
[2017-03-20 06:42] LABS: ACTIVATED PTT 45.6 SECONDS (26.9-34.4)
[2017-03-20 06:53] LABS: INR 4.34 (0.82-1.09)
[2017-03-20 06:56] LABS: ALBUMIN 2.6 g/dl (3.4-5.0); CALCIUM 7.7 mg/dL (8.5-10.1); MAGNESIUM 2.8 mg/dL (1.8-2.4)
[2017-03-20 07:08] LABS: COCKROFT - GAULT 46.87; CREATININE 2.6 mg/dL (0.7-1.3); PHOSPHOROUS 4.5 mg/dL (2.5-4.9); THYROID STIMULATING HORMONE 2.12 uIU/ml (0.358-3.74); TOT PROT 5.8 g/dl (6.4-8.2)
[2017-03-20 07:51] LABS: ARTERIAL BLD GAS O2 SATURATION 98.2 % (90-98.9); ARTERIAL BLOOD GAS PO2 87.8 mmHg (70-100)
[2017-03-20 07:52] LABS: ALLENS TEST POSITIVE; ART PUNCT SITE RIGHT RADIAL; ARTERIAL BLOOD GAS pH 7.53 (7.35-7.45); LPM/O2% 40%; MECH. VENT. ESPRIT; PT. ON O2? YES; TYPE OF O2 MEC.VENT; VENT RATE 14; VT/PRESS 450
[2017-03-20] MEDS: DOPAMINE 400 MG/D5W - 250 ML IVPB SCH (08:15)
[2017-03-20] MEDS: INSULIN REGULAR 100 UNITS in SODIUM CHLORIDE 99 ML IVPB SCH (08:18)
--- NOTE | 2017-03-20 09:05 | PN ---
Progress Note, Physician Chief Complaint: Pt intubated; awake. History of Present Illness: The patient is a 76 year old black male, with a significant past medical history of diastolic CHF with severe systolic RV dysfunction, HTN, HLD, Atrial Fibrillation, Morbid obesity, Prostate CA, Sleep apnea on O2, Glaucoma BIBA from [facility] s/p Cardiac arrest. As per EMS, the patient was initially seated in PT doing leg exercises when he became unresponsive. Patient was brought back into his room in the [place] and chest compressions were initiated by nursing staff. Down time was between 4-5 minutes. patient was shocked once and ROSC was noted. As per EMS, patient was given 150 mg of Amiodarone in field and was brought into the ED for further evaluation. Upon arrival to the ED, patients (health care proxy) gave consent to intubate over the telephone. 2:48 PM- 20 mg of Etomidate given through IV 2:49 PM- 150 mg of Succinylcholine given through IV 2:50 PM- Patient intubated with 7.5 ET tube, positioned 24 cm at the lip - Current Medication List Current Medications: Active Medications Albuterol/Ipratropium (Duoneb -) 1 amp NEB Q6H PRN PRN Reason: SHORTNESS OF BREATH Amiodarone HCl (Cordarone -) 400 mg PO BID [facility]PL[facility] Stop: 03/25/17 22:01 Last Admin: 03/19/17 22:16 Dose: 400 mg Amiodarone HCl (Cordarone -) 400 mg PO DAILY [facility] Atorvastatin Calcium (Lipitor -) 80 mg NGT [facility] Last Admin: 03/19/17 22:17 Dose: 80 mg Chlorhexidine Gluconate (Hibiclens For Decolonization -) 1 applic TP [facility] Last Admin: 03/19/17 22:17 Dose: 1 applic Chlorhexidine Gluconate (Peridex -) 15 ml MM BID [facility] Last Admin: 03/19/17 22:15 Dose: 15 ml Propofol (Diprivan -) 100 mls @ 4.082 mls/hr IVPB TITR SARAH; 5 MCG/KG/MIN PRN Reason: Protocol Last Admin: 03/19/17 22:15 Dose: 10.206 mls/hr Midazolam HCl 100 mg/ Sodium (Chloride) 100 mls @ 2 mls/hr IVPB TITR SARAH; 2 MG/ HR PRN Reason: Protocol Last Admin: 03/19/17 19:24 Dose: Not Given Insulin Human Regular 100 (units/ Sodium Chloride) 100 mls @ 14.6 mls/hr IVPB TITR SARAH; 0.1 UNITS/KG/HR PRN Reason: Protocol Last Admin: 03/20/17 08:18 Dose: Not Given Dopamine HCl/Dextrose (Dopamine 400 Mg/D5w -) 250 mls @ 27.386 mls/hr IVPB TITR SARAH; 5 MCG/KG/MIN PRN Reason: Protocol Last Admin: 03/19/17 13:00 Dose: 43.817 mls/hr Mupirocin (Bactroban Ointment (For Decolonization) -) 1 applic NS BID [facility] Stop: 03/22/17 21:59 Last Admin: 03/19/17 22:16 Dose: 1 applic Pantoprazole Sodium (Protonix 40mg Ivpb (Pre-Docked)) 40 mg IVPB DAILY [facility] Last Admin: 03/19/17 10:30 Dose: 40 mg - Objective Vital Signs: Vital Signs Temperature 97.1 F L 03/20/17 06:00 Pulse Rate 81 03/20/17 06:00 Respiratory Rate 20 03/20/17 06:00 Blood Pressure 97/55 03/20/17 06:00 O2 Sat by Pulse Oximetry (%) 97 03/19/17 14:10 Constitutional: Yes: Obese Eyes: Yes: WNL HENT: Yes: WNL Neck: Yes: Decreased ROM Cardiovascular: Yes: Pulse Irregular Respiratory: Yes: Diminished Gastrointestinal: Yes: Soft, Abdomen, Obese Genitourinary: No: Anuria Musculoskeletal: Yes: Muscle Weakness Edema: Yes Edema: LLE: 2+, RLE: 2+ Peripheral Pulses WNL: No Peripheral Pulses: Left Doralis Pedis: 1+, Right Dorsalis Pedis: 1+ Integumentary: Yes: Venous Stasis Changes, Other (indurated, hyperpigmented LEs to knees (chronic)) Neurological: Yes: Weakness Psychiatric: Yes: Other Labs: CBC, BMP 03/20/17 05:10 03/20/17 05:10 INR, PTT INR 4.34 (0.82-1.09) H* 03/20/17 05:10 - ....Imaging Other: Image Reviewed (telemetry: AF) Problem List - Problems (1) Cardiac arrest Assessment/Plan: On amiodarone 200 mg daily. F/u fluids, Is and Os. Code(s): I46.9 - CARDIAC ARREST, CAUSE UNSPECIFIED (2) Acute on chronic diastolic CHF (congestive heart failure) Assessment/Plan: On amiodarone; unable to use ACEI, ARB, or spironolactone presently (renal failure). F/u Is ans Os, body weight, BUN/Cr, Electrolytes. Code(s): I50.33 - ACUTE ON CHRONIC DIASTOLIC (CONGESTIVE) HEART FAILURE (3) Hyperlipidemia Assessment/Plan: high-dose statin. Code(s): E78.5 - HYPERLIPIDEMIA, UNSPECIFIED (4) Sleep apnea Code(s): G47.30 - SLEEP APNEA, UNSPECIFIED (5) HTN (hypertension) Code(s): I10 - ESSENTIAL (PRIMARY) HYPERTENSION (6) 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 hypertension Assessment/Plan: Hx COPD; severe RV failure. F/u Is and Os. F/u c/s. S/p tracheostomy; remains ventrilator-dependent. On amiodarone (reduced to 200 mg daily). Code(s): I27.2 - OTHER SECONDARY PULMONARY HYPERTENSION (7) Hyperkalemia Assessment/Plan: f/u electrolytes closely, particularly while on amiodarone (K, Mg, and PO4 initially elevated); hemodialysis/UF per mask former. Code(s): E87.5 - HYPERKALEMIA (8) Anemia Code(s): D64.9 - ANEMIA, UNSPECIFIED
[2017-03-20] MEDS: PANTOPRAZOLE SODIUM 40 MG/100 ML PRE-DOCKED IVPB SCH (09:13)
[2017-03-20] MEDS ORDERED: PT OWN MED DRAWER 7, Y5N ONE (09:30)
[2017-03-20] MEDS: CHLORHEXIDINE GLUCONATE 0.12% 15ML CUP MM SCH ×2 (09:40→21:32)
[2017-03-20] MEDS: AMIODARONE HCL 200 MG TABLET (FP) PO SCH ×2 (09:41→21:32)
[2017-03-20] MEDS: MUPIROCIN 2% TOPICAL OINTMENT FOR DECOLONIZATION NS SCH ×2 (09:41→21:32)
--- NOTE | 2017-03-20 11:57 | PN ---
Teaching Attending Note Name of Resident: Fani Allison ATTENDING PHYSICIAN STATEMENT I saw and evaluated the patient. I reviewed the resident's note and discussed the case with the resident. I agree with the resident's findings and plan as documented. SUBJECTIVE: Pt seen and examined in the ICU. Remains intubated, awake off sedation. Following commands but weakly. On dopamine gtt. OBJECTIVE: Last Vital Signs Temp Pulse Resp BP Pulse Ox 97.1 F L 79 24 102/62 95 03/20/17 06:00 03/20/17 10:29 03/20/17 09:10 03/20/17 08:15 03/20/17 10:29 Intake & Output 03/17/17 03/18/17 03/19/17 03/20/17 23:59 23:59 23:59 23:59 Intake Total 69197.7 0 492.6 Output Total 1100 2000 1050 800 Balance -1100 65315.7 -1050 -307.4 Weight 322 lb 322 lb 319 lb 312 lb Gen: intubated, awake Heart: RRR Lung: scattered rhonchi, decreased breath sounds at the bases L>R Abd: soft, nontender Ext: + edema CBC, BMP 03/20/17 05:10 03/20/17 05:10 CXR: pulmonary vascular congestion, LLL infiltrate/effusion Active Medications Albuterol/Ipratropium (Duoneb -) 1 amp NEB Q6H PRN PRN Reason: SHORTNESS OF BREATH Amiodarone HCl (Cordarone -) 400 mg PO BID [facility] Stop: 03/25/17 22:01 Last Admin: 03/20/17 09:41 Dose: 400 mg Amiodarone HCl (Cordarone -) 400 mg PO DAILY [facility] Atorvastatin Calcium (Lipitor -) 80 mg NGT HS [facility] Last Admin: 03/19/17 22:17 Dose: 80 mg Chlorhexidine Gluconate (Hibiclens For Decolonization -) 1 applic TP HS [facility] Last Admin: 03/19/17 22:17 Dose: 1 applic Chlorhexidine Gluconate (Peridex -) 15 ml MM BID [facility] Last Admin: 03/20/17 09:40 Dose: 15 ml Propofol (Diprivan -) 100 mls @ 4.082 mls/hr IVPB TITR SARAH; 5 MCG/KG/MIN PRN Reason: Protocol Last Titration: 03/20/17 09:27 Dose: 0 mcg/kg/min Midazolam HCl 100 mg/ Sodium (Chloride) 100 mls @ 2 mls/hr IVPB TITR SARAH; 2 MG/ HR PRN Reason: Protocol Last Titration: 03/20/17 09:11 Dose: 0 mg/hr Dopamine HCl/Dextrose (Dopamine 400 Mg/D5w -) 250 mls @ 27.386 mls/hr IVPB TITR SARAH; 5 MCG/KG/MIN PRN Reason: Protocol Last Titration: 03/20/17 09:27 Dose: 3 mcg/kg/min Mupirocin (Bactroban Ointment (For Decolonization) -) 1 applic NS BID [facility] Stop: 03/22/17 21:59 Last Admin: 03/20/17 09:41 Dose: 1 applic Pantoprazole Sodium (Protonix 40mg Ivpb (Pre-Docked)) 40 mg IVPB DAILY [facility] Last Admin: 03/20/17 09:13 Dose: 40 mg ASSESSMENT AND PLAN: s/p Vfib Cardiac Arrest Acute on Chronic Hypoxic Respiratory Failure Acute on Chronic Diastolic Heart Failure Severe Pulmonary HTN s/p BiV PPM CAD +Troponins Atrial Fibrillation HTN CKD Hyperlipidemia DM COPD Morbid Obesity Obstructive Sleep Apnea - s/p hypothermia protocol - s/p PPM interrogation confirming VT/VF - keep K>4, Mg>2 - continue amiodarone - continue anticoagulation, keep INR 2-3 - dose lasix 60mg IVP BID today - titrate off dopamine gtt to maintain MAP >65 - poor visualization of left hemithorax on bedside ultrasound, will need CT chest when more stable - taper FiO2 to keep SpO2 >90% - hold sedation to assess mental status - spontaneous breathing trials as tolerated - enteral feeds - DVT/GI prophylaxis - continue ICU monitoring critical care time spent in reviewing chart, evaluating patient and formulating plan 40 min
--- NOTE | 2017-03-20 13:31 | PN ---
Teaching Attending Note Name of Resident: Cleve Bourgeois ATTENDING PHYSICIAN STATEMENT I saw and evaluated the patient. I reviewed the resident's note and discussed the case with the resident. I agree with the resident's findings and plan as documented. SUBJECTIVE: unable to obtain hx but no events over night OBJECTIVE: Intubated , sedated, round pupils 3 mm in diameter, no JVD , ET tube in , opens eyes with verbal stimuli , CV: RRR, no MRG Lungs ; decreased breath sounds at bases Abd : obese,hypoactive BS . abd wall edema on lower abdomen Ext : 3+ pitting edema up to lower part of abd wall, R leg circumference > L. Chronic hyperpigmentation and skin thickening. ASSESSMENT AND PLAN: 76 y/o man with h/o Severe cardiomypathy( non ischemic ) ,with severely reduced EF, and PULm HTN, Diastolic dysfunction , A fib on AC, who [facility] with cardiac [facility] (V fib ) [facility]- S/P cardiac arrest: due to severe R sided cardiomyopathy. - cont to taper dopamine - cont AMion 400 mg BID x 1 week then 400 daily 2- Severe non-ischemic cardiomypoathy, with acute on chronic systolic and diastolic heart failure - cont IV lasix - monitor I&Os 3- Coumadin coagulopathy:iNR is slightly higher , but pt is not bleeding , so will cont to monitor 4- A fib: on coumadin at home.tachycardia resolved, now paced - hold off AV sumit blockers due to hypotension . hold off dig due to renal function 5- CKD : Cr at base line DVT px : INR 4 ICU level of care Critical Care Total Critical Care Time (in minutes): 35 Critical Care Statement: The care of this patient involved high complexity decision making to prevent further life threatening deterioration of the patient 's condition and/or to evalute & treat vital organ system(s) failure or risk of failure.
--- NOTE | 2017-03-20 14:30 | PN ---
Physical Exam: SUBJECTIVE: Patient seen and examined at bedside. No overnight events. Patient is following commands simple commands. Continues to be intubated and sedated. OBJECTIVE: Vital Signs Period Temp Pulse Resp BP Sys/Krishnan Pulse Ox Last 24 Hr 97.1 F-97.7 F 70-84 14-27 90-103/51-64 95-97 GENERAL: intubated and sedated HEAD: Normal with no signs of trauma. EYES: pupils reactive to light ENT: ET tube in place NECK: supple. LUNGS: Breath sounds equal, clear to auscultation bilaterally, diminished bibasilar breath sounds. HEART: RRR, S1, S2 without murmur, rub or gallop. ABDOMEN: Obese, hypoactive BS, edema of abdominal wall. EXTREMITIES: 3+ pittiing edema up to abdomen. Chronic changes of lower ext. NEUROLOGICAL: Sedated but opens eyes on command. SKIN: Warm, dry, thickened skin on bilat. LE Laboratory Results - last 24 hr 03/20/17 03/20/17 03/20/17 05:10 05:10 05:10 WBC 8.8 D RBC 4.21 Hgb 10.9 L Hct 34.4 L MCV 81.6 MCHC 31.9 L RDW 19.3 H Plt Count 164 MPV 8.7 Neutrophils % 81.0 Lymphocytes % 10.4 Monocytes % 6.9 Eosinophils % 1.3 Basophils % 0.4 INR 4.34 H* PTT (Actin FS) 45.6 H Puncture Site ABG pH ABG pCO2 at Pt Temp ABG pO2 at Pt Temp ABG HCO3 ABG O2 Sat (Measured) ABG O2 Content ABG Base Excess Brian Test O2 Delivery Device Oxygen Flow Rate Vent Mode Vent Rate Mechanical Rate PEEP Pressure Support Vent Sodium 139 Potassium 4.1 Chloride 103 Carbon Dioxide 27 Anion Gap 9 BUN 91 H Creatinine 2.6 H Creat Clearance w eGFR 23.99 Random Glucose 130 H Calcium 7.7 L Phosphorus 4.5 Magnesium 2.8 H Total Bilirubin 1.0 D AST 18 ALT 9 L Alkaline Phosphatase 67 Total Protein 5.8 L Albumin 2.6 L TSH 2.12 03/20/17 07:47 WBC RBC Hgb Hct MCV MCHC RDW Plt Count MPV Neutrophils % Lymphocytes % Monocytes % Eosinophils % Basophils % INR PTT (Actin FS) Puncture Site Right radial ABG pH 7.53 H ABG pCO2 at Pt Temp 28.6 L ABG pO2 at Pt Temp 87.8 ABG HCO3 24.0 ABG O2 Sat (Measured) 98.2 ABG O2 Content 15.1 ABG Base Excess 2.0 Brian Test Positive O2 Delivery Device Mec.vent Oxygen Flow Rate 40% Vent Mode A/c Vent Rate 14 Mechanical Rate Esprit PEEP 5.0 Pressure Support Vent 450 Sodium Potassium Chloride Carbon Dioxide Anion Gap BUN Creatinine Creat Clearance w eGFR Random Glucose Calcium Phosphorus Magnesium Total Bilirubin AST ALT Alkaline Phosphatase Total Protein Albumin TSH Active Medications Generic Name Dose Route Start Last Admin Trade Name Freq PRN Reason Stop Dose Admin Albuterol/Ipratropium 1 amp 03/19/17 15:05 Duoneb - NEB Q6H PRN SHORTNESS OF BREATH Amiodarone HCl 400 mg 03/19/17 19:00 03/20/17 09:41 Cordarone - PO 03/25/17 22:01 400 mg BID SARAH Administration Amiodarone HCl 400 mg 03/26/17 10:00 Cordarone - PO DAILY [facility] Atorvastatin Calcium 80 mg 03/18/17 09:45 03/19/17 22:17 Lipitor - NGT 80 mg HS SARAH Administration Chlorhexidine Gluconate 1 applic 03/17/17 22:00 03/19/17 22:17 Hibiclens For Decolonization - TP 1 applic HS SARAH Administration Chlorhexidine Gluconate 15 ml 03/18/17 22:15 03/20/17 09:40 Peridex - MM 15 ml BID SARAH Administration Propofol 100 mls @ 4.082 mls/hr 03/17/17 15:30 03/20/17 12:50 Diprivan - IVPB 10 mcg/kg/min TITR SARAH Titration Protocol 5 MCG/KG/MIN Midazolam HCl 100 mg/ Sodium 100 mls @ 2 mls/hr 03/17/17 18:45 03/20/17 12:50 Chloride IVPB 2 mg/hr TITR SARAH Titration Protocol 2 MG/HR Dopamine HCl/Dextrose 250 mls @ 27.386 mls/hr 03/18/17 08:15 03/20/17 12:50 Dopamine 400 Mg/D5w - IVPB 4 mcg/kg/min TITR SARAH Titration Protocol 5 MCG/KG/MIN Mupirocin 1 applic 03/17/17 22:00 03/20/17 09:41 Bactroban Ointment (For Decolonization) - NS 03/22/17 21:59 1 applic BID [facility] Administration Pantoprazole Sodium 40 mg 03/18/17 10:00 03/20/17 09:13 Protonix 40mg Ivpb (Pre-Docked) IVPB 40 mg DAILY [facility] Administration ASSESSMENT/PLAN: 76 y/o M with signifcant PMHx of CHF, HTN, Afib, and pulmonary HTN admitted from [facility] s/p cardiac arrest 2/2 vfib admitted to ICU. Dispo: Will continue to monitor in ICU. Plan for weaning trial for possible extubation. Problem List - Problems (1) Cardiac arrest Assessment/Plan: * S/P cooling and intubation * Will continue weaning trial. -->hold sedation * taper dopamine as MAP 75 * Continue Amiodarone 400mg PO BID for one week then 400mg PO daily * Continue ICU monitoring. (2) Acute on chronic diastolic CHF (congestive heart failure) Assessment/Plan: * Continue lasix 60mg IV daily * monitor I/O's * daily weights. (3) Supratherapeutic INR Assessment/Plan: * INR 4 * continue to hold * no need for vit. k as there is no active bleeding. (4) A-fib Assessment/Plan: * Currently paced * will hold off on AV blockage due to hypotension * Digoxin held due to renal function. * NO AC as INR supratherapeutic. (5) CKD (chronic kidney disease) Assessment/Plan: * Stage 4 GFR 23 * at baseline * repeat labs in AM (6) DVT prophylaxis Assessment/Plan: * INR 4 * NO need for AC Visit type - Emergency Visit Emergency Visit: Yes ED Registration Date: 03/17/17 Care time: The patient presented to the Emergency Department on the above date and was hospitalized for further evaluation of their emergent condition. - New Patient This patient is new to me today: Yes Date on this admission: 03/20/17 - Critical Care Critical Care patient: Yes Total Critical Care Time (in minutes): 40 Critical Care Statement: The care of this patient involved high complexity decision making to prevent further life threatening deterioration of the patient 's condition and/or to evalute & treat vital organ system(s) failure or risk of failure.
[2017-03-20] MEDS ORDERED: FUROSEMIDE 40 MG/4 ML INJECTABLE VIAL IVPUSH ONE (15:00)
--- NOTE | 2017-03-20 16:19 | PN ---
Physical Exam: SUBJECTIVE: Patient seen and examined. The pt is sedated and intubated on CPAP. On overnight events. OBJECTIVE: Vital Signs Period Temp Pulse Resp BP Sys/Krishnan Pulse Ox Last 24 Hr 97 F-97.7 F 70-84 14-24 90-103/51-64 95-96 GENERAL: The patient is sedated, on mech ventilation. HEAD: Normal with no signs of trauma. EYES: PERRL, sclera anicteric, conjunctiva clear. ENT: moist mucous membranes. NECK: Trachea midline, full range of motion, supple. LUNGS: Breath sounds equal, diminished bilaterally, no wheezes, no crackles, no accessory muscle use. HEART: Regular rate and rhythm, S1, S2 without murmur, rub or gallop. ABDOMEN: Soft, nontender, nondistended, normoactive bowel sounds, no guarding, no rebound, no hepatosplenomegaly, no masses. EXTREMITIES: 2+ pulses, warm,no edema. NEUROLOGICAL: No facial asymmetry, gait not observed, opens eyes when asked. PSYCH: Normal mood, normal affect. SKIN: Warm, dry, normal turgor, no rashes or lesions noted Laboratory Results - last 24 hr 03/20/17 03/20/17 03/20/17 05:10 05:10 05:10 WBC 8.8 D RBC 4.21 Hgb 10.9 L Hct 34.4 L MCV 81.6 MCHC 31.9 L RDW 19.3 H Plt Count 164 MPV 8.7 Neutrophils % 81.0 Lymphocytes % 10.4 Monocytes % 6.9 Eosinophils % 1.3 Basophils % 0.4 INR 4.34 H* PTT (Actin FS) 45.6 H Puncture Site ABG pH ABG pCO2 at Pt Temp ABG pO2 at Pt Temp ABG HCO3 ABG O2 Sat (Measured) ABG O2 Content ABG Base Excess Brian Test O2 Delivery Device Oxygen Flow Rate Vent Mode Vent Rate Mechanical Rate PEEP Pressure Support Vent Sodium 139 Potassium 4.1 Chloride 103 Carbon Dioxide 27 Anion Gap 9 BUN 91 H Creatinine 2.6 H Creat Clearance w eGFR 23.99 Random Glucose 130 H Calcium 7.7 L Phosphorus 4.5 Magnesium 2.8 H Total Bilirubin 1.0 D AST 18 ALT 9 L Alkaline Phosphatase 67 Total Protein 5.8 L Albumin 2.6 L TSH 2.12 03/20/17 07:47 WBC RBC Hgb Hct MCV MCHC RDW Plt Count MPV Neutrophils % Lymphocytes % Monocytes % Eosinophils % Basophils % INR PTT (Actin FS) Puncture Site Right radial ABG pH 7.53 H ABG pCO2 at Pt Temp 28.6 L ABG pO2 at Pt Temp 87.8 ABG HCO3 24.0 ABG O2 Sat (Measured) 98.2 ABG O2 Content 15.1 ABG Base Excess 2.0 Brian Test Positive O2 Delivery Device Mec.vent Oxygen Flow Rate 40% Vent Mode A/c Vent Rate 14 Mechanical Rate Esprit PEEP 5.0 Pressure Support Vent 450 Sodium Potassium Chloride Carbon Dioxide Anion Gap BUN Creatinine Creat Clearance w eGFR Random Glucose Calcium Phosphorus Magnesium Total Bilirubin AST ALT Alkaline Phosphatase Total Protein Albumin TSH Active Medications Generic Name Dose Route Start Last Admin Trade Name Freq PRN Reason Stop Dose Admin Albuterol/Ipratropium 1 amp 03/19/17 15:05 Duoneb - NEB Q6H PRN SHORTNESS OF BREATH Amiodarone HCl 400 mg 03/19/17 19:00 03/20/17 09:41 Cordarone - PO 03/25/17 22:01 400 mg BID SARAH Administration Amiodarone HCl 400 mg 03/26/17 10:00 Cordarone - PO DAILY [facility] Atorvastatin Calcium 80 mg 03/18/17 09:45 03/19/17 22:17 Lipitor - NGT 80 mg HS SARAH Administration Chlorhexidine Gluconate 1 applic 03/17/17 22:00 03/19/17 22:17 Hibiclens For Decolonization - TP 1 applic HS [facility]AH Administration Chlorhexidine Gluconate 15 ml 03/18/17 22:15 03/20/17 09:40 Peridex - MM 15 ml BID SARAH Administration Propofol 100 mls @ 4.082 mls/hr 03/17/17 15:30 03/20/17 12:50 Diprivan - IVPB 10 mcg/kg/min TITR SARAH Titration Protocol 5 MCG/KG/MIN Midazolam HCl 100 mg/ Sodium 100 mls @ 2 mls/hr 03/17/17 18:45 03/20/17 12:50 Chloride IVPB 2 mg/hr TITR SARAH Titration Protocol 2 MG/HR Dopamine HCl/Dextrose 250 mls @ 27.386 mls/hr 03/18/17 08:15 03/20/17 12:50 Dopamine 400 Mg/D5w - IVPB 4 mcg/kg/min TITR SARAH Titration Protocol 5 MCG/KG/MIN Mupirocin 1 applic 03/17/17 22:00 03/20/17 09:41 Bactroban Ointment (For Decolonization) - NS 03/22/17 21:59 1 applic BID [facility]AH Administration Pantoprazole Sodium 40 mg 03/18/17 10:00 03/20/17 09:13 Protonix 40mg Ivpb (Pre-Docked) IVPB 40 mg DAILY [facility] Administration Echocardiogram showing right ventricular dysfunction and severe tricuspid regurgitation. ASSESSMENT/PLAN: 76 year old male w/ a significant PMH of diastolic CHF,biventricular pacemaker, COPD, HTN, HLD, Atrial Fibrillation, renal insufficiency, Morbid obesity, Prostate CA, Sleep apnea on O2, generalzied weakness (wheelchair-bound), Glaucoma BIBA from [facility] s/p Cardiac arrest due to V.Fib. Neuro: -on CPAP -sedated CVS: Cardiac arrest: pacemaker interrogation showed Vfib, Echo reviewed-severe TR LVEF WNL right sided systolic dysfunction warming still in progress sedation vacation not well tolerated continue ventilatory support will be evaluated by hydropulper f/u ABG CHF: now on PO amiodarone still on dopamine, will try to taper off echo sever TR regurage and right heart failure, clinically fluid overloaded. 60mg IV furosemide responded will given another dose if vitals stable Restrict fluids. HTN: hold antihypertensives for now as patient is on dopamine Non ischemic CAD/Non ischemic cardiomyopathy: cont Lipitor Afib: INR supratherapeutic hold coumadin for now Digoxin if HR increases Digoxin level within range HLD: lipitor 80mg HS send lipid panel with morning labs Pulm: COPD: on home oxygen PRN, minimal activity, able to walk 10 steps from chary to bed, uses wheel chair device at home. continue ventilatory support for now broncho dilators Obstructive Sleep Apnea: on vent for now Renal: CKD stage 3: at baseline renally dose all medications monitor Cr Endo: Hyperglycemia: A1C 6.4 Insulin sliding scale FEN: keep net negative fluid balance. Benefit Specialist consulted for tube feeds, will continue Glucerna. tube feeds PPx: INR supratherapeutic, Protonix Dispo: continue ICU monitor. Problem List - Problems (1) A-fib Code(s): I48.91 - UNSPECIFIED ATRIAL FIBRILLATION Qualifiers: Atrial fibrillation type: unspecified Qualified Code(s): I48.91 - Unspecified atrial fibrillation (2) Acute on chronic diastolic CHF (congestive heart failure) Code(s): I50.33 - ACUTE ON CHRONIC DIASTOLIC (CONGESTIVE) HEART FAILURE (3) Anemia Code(s): D64.9 - ANEMIA, UNSPECIFIED (4) CKD (chronic kidney disease) Code(s): N18.9 - CHRONIC KIDNEY DISEASE, UNSPECIFIED Qualifiers: Chronic kidney disease stage: stage 4 (severe) Qualified Code(s): N18.4 - Chronic kidney disease, stage 4 (severe) (5) Cardiac arrest Code(s): I46.9 - CARDIAC ARREST, CAUSE UNSPECIFIED (6) DVT prophylaxis Code(s): JLO1449 - (7) HTN (hypertension) Code(s): I10 - ESSENTIAL (PRIMARY) HYPERTENSION (8) Hyperkalemia Code(s): E87.5 - HYPERKALEMIA (9) Hyperlipidemia Code(s): E78.5 - HYPERLIPIDEMIA, UNSPECIFIED (10) 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 hypertension Code(s): I27.2 - OTHER SECONDARY PULMONARY HYPERTENSION (11) Sleep apnea Code(s): G47.30 - SLEEP APNEA, UNSPECIFIED Visit type - Emergency Visit Emergency Visit: Yes ED Registration Date: 03/17/17 Care time: The patient presented to the Emergency Department on the above date and was hospitalized for further evaluation of their emergent condition. - New Patient This patient is new to me today: Yes Date on this admission: 03/20/17 - Critical Care Critical Care patient: Yes Total Critical Care Time (in minutes): 40 Critical Care Statement: The care of this patient involved high complexity decision making to prevent further life threatening deterioration of the patient 's condition and/or to evalute & treat vital organ system(s) failure or risk of failure.
[2017-03-20] MEDS: PROPOFOL 100 ML IVPB SCH (21:30)
[2017-03-20] MEDS: MIDAZOLAM 100 MG in SODIUM CHLORIDE 100 ML IVPB SCH (21:31)
[2017-03-20] MEDS: CHLORHEXIDINE GLUCONATE 4% CLEANSER FOR DECOLONIZATION TP SCH (21:32)
[2017-03-20] MEDS: ATORVASTATIN CA 80 MG TABLET (FP) NGT SCH (21:32)
[2017-03-21] MEDS: DOPAMINE 400 MG/D5W - 250 ML IVPB SCH (07:00)
[2017-03-21 07:41] LABS: ARTERIAL BLD GAS O2 SATURATION 99.8 % (90-98.9); ARTERIAL BLOOD GAS BASE EXCESS 0.2 meq/l (-2-2); ARTERIAL BLOOD GAS HCO3 24.2 meq/L (22-26); ARTERIAL BLOOD GAS pH 7.41 (7.35-7.45)
[2017-03-21 07:42] LABS: ALLENS TEST POSITIVE; ART PUNCT SITE RIGHT RADIAL; LPM/O2% 40%; MECH. VENT. YES; PT. ON O2? YES; TYPE OF O2 VENT; VENT RATE 14; VT/PRESS 450
--- NOTE | 2017-03-21 07:52 | PN ---
Teaching Attending Note Name of Resident: Cleve Bourgeois ATTENDING PHYSICIAN STATEMENT I saw and evaluated the patient. I reviewed the resident's note and discussed the case with the resident. I agree with the resident's findings and plan as documented. SUBJECTIVE: no events over night. unable to obtain hx OBJECTIVE: Intubated , sedated, round pupils 3 mm in diameter, no JVD , ET tube in , opens eyes with verbal stimuli , and resists eye opening CV: RRR, no MRG Lungs ; clear lungs , decreased breath sounds at bases Abd : obese,hypoactive BS . 1+ abd wall edema on lower abdomen Ext : 3+ pitting edemaon LE , R leg circumference > L. Chronic hyperpigmentation and skin thickening. ASSESSMENT AND PLAN: 76 y/o man with h/o Severe cardiomypathy( non ischemic ) ,with severely reduced EF, and PULm HTN, Diastolic dysfunction , A fib on AC, who presented with cardiac arrest (V fib ) from his [facility] 1- S/P cardiac arrest: due to severe R sided cardiomyopathy. - cont to taper dopamine ( keep MAP > 65 ) - cont Amio 400 mg BID x 1 week then 400 daily 2- Severe non-ischemic cardiomypoathy, with acute on chronic systolic and diastolic heart failure I&O net neg 350 cc only . - will give 80 of IV lasix BID today and reassess - monitor I&Os 3- Coumadin coagulopathy: INR is pending for today 4- A fib: on coumadin at home.tachycardia resolved, now paced - hold off AV sumit blockers due to hypotension . hold off dig due to renal function - teele , has PVS only 5- CKD : Cr at base line DVT px :elevated INR ICU level of care Critical Care Total Critical Care Time (in minutes): 30 Critical Care Statement: The care of this patient involved high complexity decision making to prevent further life threatening deterioration of the patient 's condition and/or to evalute & treat vital organ system(s) failure or risk of failure.
[2017-03-21] MEDS ORDERED: FUROSEMIDE 40 MG/4 ML INJECTABLE VIAL IVPUSH ONE ×2 (08:15→14:00)
[2017-03-21 08:45] LABS: BASOPHIL 0.2 % (0-2.0); EOSINOPHIL 0.8 % (0-4.5); MCH 26.2 pg (25.7-33.7); MCHC 31.8 g/dl (32.0-35.9); MEAN CELL VOLUME 82.5 fl (80-96); MEAN PLT VOLUME 8.8 fl (7.5-11.1); NEUTROPHILS 86.3 % (42.8-82.8); PLATELET COUNT 137 K/MM3 (134-434); RDW 19.7 % (11.9-15.9); WHITE BLOOD COUNT 10.5 K/mm3 (4.0-10.0)
[2017-03-21 09:00] LABS: ALBUMIN 2.3 g/dl (3.4-5.0); CALCIUM 7.9 mg/dL (8.5-10.1)
[2017-03-21 09:02] LABS: BILIRUBIN,TOTAL 0.8 mg/dL (0.2-1.0); TOT PROT 5.6 g/dl (6.4-8.2)
[2017-03-21] MEDS: PANTOPRAZOLE SODIUM 40 MG/100 ML PRE-DOCKED IVPB SCH (09:30)
[2017-03-21] MEDS: MIDAZOLAM 100 MG in SODIUM CHLORIDE 100 ML IVPB SCH ×2 (09:31→21:48)
[2017-03-21] MEDS: CHLORHEXIDINE GLUCONATE 0.12% 15ML CUP MM SCH ×2 (09:31→21:48)
[2017-03-21] MEDS: AMIODARONE HCL 200 MG TABLET (FP) PO SCH ×2 (09:44→21:48)
[2017-03-21] MEDS: PROPOFOL 100 ML IVPB SCH (09:44)
[2017-03-21] MEDS: MUPIROCIN 2% TOPICAL OINTMENT FOR DECOLONIZATION NS SCH ×2 (09:45→21:48)
[2017-03-21 09:47] LABS: PROTHROMBIN TIME (PATIENT) 48.5 SEC (9.98-11.88)
[2017-03-21 10:24] LABS: INR 4.28 (0.82-1.09)
--- NOTE | 2017-03-21 10:35 | PN ---
Progress Note, Physician Chief Complaint: Pt intubated;sedated History of Present Illness: The patient is a 76 year old black male, with a significant past medical history of diastolic CHF (severely reduced RVEF of uncertain etiology; severely dilated RV on 02/2017 ECHO, per pt's sports development officer at [facility]), (non- obstructive CAD by 2008 coronary angiogram), [employer] "biventricular pacemaker , COPD, HTN, HLD, Atrial Fibrillation, renal insufficiency, Morbid obesity, Prostate CA, Sleep apnea on O2, generalzied weakness (wheelchair-bound), Glaucoma BIBA from [facility] s/p Cardiac arrest. As per EMS, the patient was initially seated in PT doing leg exercises when he became unresponsive. Patient was brought back into his room in the [place] and chest compressions were initiated by nursing staff. Down time was between 4-5 minutes. patient was shocked once and ROSC was noted. As per EMS, patient was given 150 mg of Amiodarone in the field and was brought into the ED for further evaluation. Upon arrival to the ED, patients (health care proxy) gave consent to intubate over the telephone. 2:48 PM- 20 mg of Etomidate given through IV 2:49 PM- 150 mg of Succinylcholine given through IV 2:50 PM- Patient intubated with 7.5 ET tube, positioned 24 cm at the lip Pt's says pt is followed closely by [facility] and cardiac groups. I spoke by telephone with pt's sports development officer, who provided much of the above history. - Current Medication List Current Medications: Active Medications Albuterol/Ipratropium (Duoneb -) 1 amp NEB Q6H PRN PRN Reason: SHORTNESS OF BREATH Amiodarone HCl (Cordarone -) 400 mg PO BID [facility] Stop: 03/25/17 22:01 Last Admin: 03/21/17 09:44 Dose: 400 mg Amiodarone HCl (Cordarone -) 400 mg PO DAILY [facility] Atorvastatin Calcium (Lipitor -) 80 mg NGT [facility] Last Admin: 03/20/17 21:32 Dose: 80 mg Chlorhexidine Gluconate (Hibiclens For Decolonization -) 1 applic TP [facility] Last Admin: 03/20/17 21:32 Dose: 1 applic Chlorhexidine Gluconate (Peridex -) 15 ml MM BID [facility] Last Admin: 03/21/17 09:31 Dose: 15 ml Furosemide (Lasix Injection -) 80 mg IVPUSH ONCE ONE Stop: 03/21/17 14:01 Propofol (Diprivan -) 100 mls @ 4.082 mls/hr IVPB TITR SARAH; 5 MCG/KG/MIN PRN Reason: Protocol Last Admin: 03/21/17 09:44 Dose: 10.206 mls/hr Midazolam HCl 100 mg/ Sodium (Chloride) 100 mls @ 2 mls/hr IVPB TITR SARAH; 2 MG/ HR PRN Reason: Protocol Last Admin: 03/21/17 09:31 Dose: 2 mls/hr Dopamine HCl/Dextrose (Dopamine 400 Mg/D5w -) 250 mls @ 27.386 mls/hr IVPB TITR SARAH; 5 MCG/KG/MIN PRN Reason: Protocol Last Admin: 03/21/17 07:00 Dose: 27.386 mls/hr Mupirocin (Bactroban Ointment (For Decolonization) -) 1 applic NS BID [facility] Stop: 03/22/17 21:59 Last Admin: 03/21/17 09:45 Dose: 1 applic Pantoprazole Sodium (Protonix 40mg Ivpb (Pre-Docked)) 40 mg IVPB DAILY [facility] Last Admin: 03/21/17 09:30 Dose: 40 mg - Objective Vital Signs: Vital Signs Temperature 99.1 F 03/21/17 06:00 Pulse Rate 84 03/21/17 06:00 Respiratory Rate 18 03/21/17 06:30 Blood Pressure 95/60 03/21/17 06:00 O2 Sat by Pulse Oximetry (%) 100 03/21/17 00:53 Constitutional: Yes: Obese Eyes: Yes: WNL HENT: Yes: WNL Neck: Yes: Decreased ROM Cardiovascular: Yes: Pulse Irregular Respiratory: Yes: Diminished, Mechanically Ventilated Gastrointestinal: Yes: Soft Genitourinary: Yes: Anuria Musculoskeletal: Yes: Muscle Weakness Extremities: Yes: Cool Edema: Yes Edema: LLE: 2+, RLE: 2+ Peripheral Pulses WNL: No Peripheral Pulses: Left Doralis Pedis: 1+, Right Dorsalis Pedis: 1+ Integumentary: Yes: Venous Stasis Changes Labs: CBC, BMP 03/21/17 07:50 03/21/17 07:50 INR, PTT INR 4.28 (0.82-1.09) H* 03/21/17 07:50 Problem List - Problems (1) Cardiac arrest Assessment/Plan: Now on PO amiodarone. Taper off IV dopamine as BP allows. F/u Is and Os, respiratory response to IV furosemide. Maintain K 4-4.5, Mg 2-2.3. Code(s): I46.9 - CARDIAC ARREST, CAUSE UNSPECIFIED (2) Acute on chronic diastolic CHF (congestive heart failure) Assessment/Plan: see under "cardiac arrest'. Code(s): I50.33 - ACUTE ON CHRONIC DIASTOLIC (CONGESTIVE) HEART FAILURE (3) Hyperlipidemia Assessment/Plan: high-dose statin. Code(s): E78.5 - HYPERLIPIDEMIA, UNSPECIFIED (4) Sleep apnea Code(s): G47.30 - SLEEP APNEA, UNSPECIFIED (5) HTN (hypertension) Code(s): I10 - ESSENTIAL (PRIMARY) HYPERTENSION (6) 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 hypertension Assessment/Plan: Hx COPD; severe RV failure. White-out of left lung. F/u Is and Os. Intubated. F/u with paper sample clerk. Code(s): I27.2 - OTHER SECONDARY PULMONARY HYPERTENSION (7) Hyperkalemia Assessment/Plan: f/u electrolytes closely (K, Mg, and PO4 elevated). Code(s): E87.5 - HYPERKALEMIA (8) Anemia Code(s): D64.9 - ANEMIA, UNSPECIFIED (9) Acute on chronic renal failure Code(s): N17.9 - ACUTE KIDNEY FAILURE, UNSPECIFIED N18.9 - CHRONIC KIDNEY DISEASE, UNSPECIFIED Assessment/Plan CC time spent: 45 minutes
--- NOTE | 2017-03-21 13:54 | PN ---
Progress Note (short form) - Note Progress Note: PULM / CRITICAL CARE PROGRESS NOTE: Pt seen and examined in the ICU. 24 HOUR EVENTS: -Remains intubated, sedated, on Dopamine -Grossly volume overloaded Current Medications Albuterol/Ipratropium (Duoneb -) 1 amp NEB Q6H PRN PRN Reason: SHORTNESS OF BREATH Amiodarone HCl (Cordarone -) 400 mg PO BID [facility] Stop: 03/25/17 22:01 Last Admin: 03/21/17 09:44 Dose: 400 mg Amiodarone HCl (Cordarone -) 400 mg PO DAILY [facility] Atorvastatin Calcium (Lipitor -) 80 mg NGT HS [facility] Last Admin: 03/20/17 21:32 Dose: 80 mg Chlorhexidine Gluconate (Hibiclens For Decolonization -) 1 applic TP HS [facility] Last Admin: 03/20/17 21:32 Dose: 1 applic Chlorhexidine Gluconate (Peridex -) 15 ml MM BID [facility] Last Admin: 03/21/17 09:31 Dose: 15 ml Furosemide (Lasix Injection -) 80 mg IVPUSH ONCE ONE Stop: 03/21/17 14:01 Midazolam HCl 100 mg/ Sodium (Chloride) 100 mls @ 2 mls/hr IVPB TITR SARAH; 2 MG/ HR PRN Reason: Protocol Last Admin: 03/21/17 09:31 Dose: 2 mls/hr Dopamine HCl/Dextrose (Dopamine 400 Mg/D5w -) 250 mls @ 27.386 mls/hr IVPB TITR SARAH; 5 MCG/KG/MIN PRN Reason: Protocol Last Titration: 03/21/17 12:37 Dose: 5 mcg/kg/min Fentanyl 500 mcg/ Dextrose 100 mls @ 10 mls/hr IJ TITR SARAH PRN Reason: 50 MCG/HR Furosemide 100 mg/ Dextrose 100 mls @ 10 mls/hr IVPB TITR SARAH PRN Reason: 10 MG/HR Mupirocin (Bactroban Ointment (For Decolonization) -) 1 applic NS BID [facility] Stop: 03/22/17 21:59 Last Admin: 03/21/17 09:45 Dose: 1 applic Pantoprazole Sodium (Protonix 40mg Ivpb (Pre-Docked)) 40 mg IVPB DAILY [facility] Last Admin: 03/21/17 09:30 Dose: 40 mg Last Vital Signs Temp Pulse Resp BP Pulse Ox 97.1 F L 79 24 102/62 95 03/20/17 06:00 03/20/17 10:29 03/20/17 09:10 03/20/17 08:15 03/20/17 10:29 Intake & Output 03/17/17 03/18/17 03/19/17 03/20/17 23:59 23:59 23:59 23:59 Intake Total 90505.7 0 492.6 Output Total 1100 1999 1050 800 Balance -1100 39943.7 -1050 -307.4 Weight 322 lb 322 lb 319 lb 312 lb Gen: intubated, awake Heart: RRR Lung: scattered rhonchi, decreased breath sounds at the bases L>R Abd: soft, nontender Ext: + edema CBC, BMP 03/21/17 07:50 03/21/17 07:50 CXR: pulmonary vascular congestion, LLL infiltrate/effusion ASSESSMENT AND PLAN: s/p Vfib Cardiac Arrest Acute on Chronic Hypoxic Respiratory Failure Acute on Chronic Diastolic Heart Failure Severe Pulmonary HTN s/p BiV PPM CAD +Troponins Atrial Fibrillation HTN CKD Hyperlipidemia DM COPD Morbid Obesity Obstructive Sleep Apnea - Lasix drip - needs volume off - Stop Propofol and start Fentanyl drip - continue amiodarone - continue anticoagulation - titrate off dopamine gtt to maintain MAP >65 - poor visualization of left hemithorax on bedside ultrasound, will need CT chest when more stable - taper FiO2 to keep SpO2 >90% - hold sedation to assess mental status - spontaneous breathing trials as tolerated - enteral feeds - DVT/GI prophylaxis - continue ICU monitoring CCT 35min [facility] Pulm/Critical CELL LINER
[2017-03-21] MEDS: FENTANYL INJECTION 500 MCG in DEXTROSE 5%-WATER - 90 ML IJ SCH (14:23)
--- NOTE | 2017-03-21 14:28 | PN ---
Physical Exam: SUBJECTIVE: Patient seen and examined at bedside. No overnight events. Continues to be intubated and sedated. OBJECTIVE: Vital Signs Period Temp Pulse Resp BP Sys/Krishnan Pulse Ox Last 24 Hr 97.7 F-99.1 F 74-91 14-23 74-110/43-65 95-100 GENERAL: intubated and sedated HEAD: Normal with no signs of trauma. EYES: pupils reactive to light ENT: ET tube in place NECK: supple. LUNGS: Breath sounds equal, clear to auscultation bilaterally, diminished bibasilar breath sounds. HEART: RRR, S1, S2 without murmur, rub or gallop. ABDOMEN: Obese, hypoactive BS, edema of abdominal wall. EXTREMITIES: 3+ pittiing edema up to abdomen. Chronic changes of lower ext. NEUROLOGICAL: Sedated but opens eyes on command. SKIN: Warm, dry, thickened skin on bilat. LE Laboratory Results - last 24 hr 03/21/17 03/21/17 03/21/17 07:30 07:50 07:50 WBC 10.5 H RBC 4.14 Hgb 10.9 L Hct 34.2 L MCV 82.5 MCHC 31.8 L RDW 19.7 H Plt Count 137 MPV 8.8 Neutrophils % 86.3 H Lymphocytes % 6.3 L D Monocytes % 6.4 Eosinophils % 0.8 Basophils % 0.2 INR Puncture Site Right radial ABG pH 7.41 ABG pCO2 at Pt Temp 39.3 D ABG pO2 at Pt Temp 202.0 H* D ABG HCO3 24.2 ABG O2 Sat (Measured) 99.8 H* ABG O2 Content 15.7 ABG Base Excess 0.2 Brian Test Positive O2 Delivery Device Vent Oxygen Flow Rate 40% Vent Mode A/c Vent Rate 14 Mechanical Rate Yes PEEP 5.0 Pressure Support Vent 450 Sodium 139 Potassium 4.2 Chloride 101 Carbon Dioxide 25 Anion Gap 13 BUN 94 H Creatinine 3.0 H Creat Clearance w eGFR 20.34 Random Glucose 124 H Calcium 7.9 L Total Bilirubin 0.8 AST 24 D ALT 13 D Alkaline Phosphatase 69 Total Protein 5.6 L Albumin 2.3 L 03/21/17 07:50 WBC RBC Hgb Hct MCV MCHC RDW Plt Count MPV Neutrophils % Lymphocytes % Monocytes % Eosinophils % Basophils % INR 4.28 H* Puncture Site ABG pH ABG pCO2 at Pt Temp ABG pO2 at Pt Temp ABG HCO3 ABG O2 Sat (Measured) ABG O2 Content ABG Base Excess Brian Test O2 Delivery Device Oxygen Flow Rate Vent Mode Vent Rate Mechanical Rate PEEP Pressure Support Vent Sodium Potassium Chloride Carbon Dioxide Anion Gap BUN Creatinine Creat Clearance w eGFR Random Glucose Calcium Total Bilirubin AST ALT Alkaline Phosphatase Total Protein Albumin Active Medications Generic Name Dose Route Start Last Admin Trade Name Freq PRN Reason Stop Dose Admin Albuterol/Ipratropium 1 amp 03/19/17 15:05 Duoneb - NEB Q6H PRN SHORTNESS OF BREATH Amiodarone HCl 400 mg 03/19/17 19:00 03/21/17 09:44 Cordarone - PO 03/25/17 22:01 400 mg BID SARAH Administration Amiodarone HCl 400 mg 03/26/17 10:00 Cordarone - PO DAILY SARAH Atorvastatin Calcium 80 mg 03/18/17 09:45 03/20/17 21:32 Lipitor - NGT 80 mg HS SARAH Administration Chlorhexidine Gluconate 1 applic 03/17/17 22:00 03/20/17 21:32 Hibiclens For Decolonization - TP 1 applic HS SARAH Administration Chlorhexidine Gluconate 15 ml 03/18/17 22:15 03/21/17 09:31 Peridex - MM 15 ml BID SARAH Administration Midazolam HCl 100 mg/ Sodium 100 mls @ 2 mls/hr 03/17/17 18:45 03/21/17 09:31 Chloride IVPB 2 mls/hr TITR SARAH Administration Protocol 2 MG/HR Dopamine HCl/Dextrose 250 mls @ 27.386 mls/hr 03/18/17 08:15 03/21/17 12:37 Dopamine 400 Mg/D5w - IVPB 5 mcg/kg/min TITR SARAH Titration Protocol 5 MCG/KG/MIN Fentanyl 500 mcg/ Dextrose 100 mls @ 10 mls/hr 03/21/17 13:45 IJ TITR SARAH 50 MCG/HR Furosemide 100 mg/ Dextrose 100 mls @ 10 mls/hr 03/21/17 13:45 IVPB TITR SARAH 10 MG/HR Mupirocin 1 applic 03/17/17 22:00 03/21/17 09:45 Bactroban Ointment (For Decolonization) - NS 03/22/17 21:59 1 applic BID SARAH Administration Pantoprazole Sodium 40 mg 05/03/17 10:00 03/21/17 09:30 Protonix 40mg Ivpb (Pre-Docked) IVPB 40 mg DAILY SARAH Administration ASSESSMENT/PLAN: 76 y/o M with signifcant PMHx of CHF, HTN, Afib, and pulmonary HTN admitted from snf s/p cardiac arrest 2/2 vfib admitted to ICU. Dispo: Will continue to monitor in ICU. Plan for weaning trial for possible extubation. Problem List - Problems (1) Cardiac arrest Assessment/Plan: * S/P cooling and intubation * weaning trial unsuccessful -->will continue to duirese * Difficult to taper Dopamine --> continues @ 5mcg * Continue Amiodarone 400mg PO BID for one week then 400mg PO daily * Continue ICU monitoring. (2) Acute on chronic diastolic CHF (congestive heart failure) Assessment/Plan: * increase lasix 60mg IV daily to 80mg IV daily * monitor I/O's * daily weights. (3) Supratherapeutic INR Assessment/Plan: * INR 4 * continue to hold * no need for vit. k as there is no active bleeding. (4) A-fib Assessment/Plan: * Currently paced * will hold off on AV blockage due to hypotension * Digoxin held due to renal function. * NO AC as INR supratherapeutic. (5) CKD (chronic kidney disease) Assessment/Plan: * Stage 4 GFR 23 * worsening Cr however will need to continue Lasix. * repeat labs in AM (6) DVT prophylaxis Assessment/Plan: * INR 4 * NO need for AC Visit type - Emergency Visit Emergency Visit: Yes ED Registration Date: 03/17/17 Care time: The patient presented to the Emergency Department on the above date and was hospitalized for further evaluation of their emergent condition. - New Patient This patient is new to me today: No - Critical Care Critical Care patient: Yes Total Critical Care Time (in minutes): 45 Critical Care Statement: The care of this patient involved high complexity decision making to prevent further life threatening deterioration of the patient 's condition and/or to evalute & treat vital organ system(s) failure or risk of failure.
[2017-03-21] MEDS ORDERED: FUROSEMIDE 100 MG/10 ML INJECTABLE VIAL ONE ×2 (14:52→22:16)
[2017-03-21] MEDS: FUROSEMIDE INJECTION 100 MG in DEXTROSE 5%-WATER - 90 ML IVPB SCH (14:56)
[2017-03-21] MEDS ORDERED: PHYTONADIONE 10 MG/1 ML AMP IVPB ONE (16:39)
[2017-03-21] MEDS: ATORVASTATIN CA 80 MG TABLET (FP) NGT SCH (21:48)
[2017-03-21] MEDS: CHLORHEXIDINE GLUCONATE 4% CLEANSER FOR DECOLONIZATION TP SCH (21:49)
[2017-03-22 06:40] LABS: CALCIUM 8.3 mg/dL (8.5-10.1); COCKROFT - GAULT 39.4; CREATININE 3.1 mg/dL (0.7-1.3)
[2017-03-22 06:42] LABS: BASOPHIL 0.2 % (0-2.0); EOSINOPHIL 1.9 % (0-4.5); MCH 26.4 pg (25.7-33.7); MCHC 31.4 g/dl (32.0-35.9); MEAN CELL VOLUME 83.9 fl (80-96); MEAN PLT VOLUME 8.5 fl (7.5-11.1); PLATELET COUNT 142 K/MM3 (134-434); RDW 19.7 % (11.9-15.9); WHITE BLOOD COUNT 7.8 K/mm3 (4.0-10.0)
[2017-03-22 07:05] LABS: INR 1.66 (0.82-1.09); PROTHROMBIN TIME (PATIENT) 18.5 SEC (9.98-11.88)
[2017-03-22 07:54] LABS: ARTERIAL BLD GAS O2 SATURATION 92.3 % (90-98.9); ARTERIAL BLOOD GAS BASE EXCESS -2.3 meq/l (-2-2); ARTERIAL BLOOD GAS HCO3 25.1 meq/L (22-26); ARTERIAL BLOOD GAS PO2 67.6 mmHg (70-100)
[2017-03-22 07:55] LABS: ALLENS TEST POSITIVE; ART PUNCT SITE RIGHT RADIAL; LPM/O2% 40%; MECH. VENT. YES; PT. ON O2? YES; TYPE OF O2 VENT; VENT RATE 14; VT/PRESS 450
[2017-03-22 07:56] LABS: ARTERIAL BLOOD GAS pH 7.25 (7.35-7.45)
--- NOTE | 2017-03-22 08:19 | PN ---
Progress Note (short form) - Note Progress Note: Subjective: unable to take hx. no events over night Objective: Vital Signs: Last Vital Signs Temp Pulse Resp BP Pulse Ox 98.8 F 98 H 14 89/60 98 03/22/17 06:00 03/22/17 06:00 03/22/17 06:48 03/22/17 06:00 03/21/17 21:00 I&O: Intake & Output 03/19/17 03/20/17 03/21/17 03/22/17 23:59 23:59 23:59 23:59 Intake Total 0 950.6 2608.4 1432.8 Output Total 1050 1300 2200 400 Balance -1050 -349.4 408.4 1032.8 Weight 319 lb 312 lb 315 lb 1 oz 313 lb 4.8 oz Physical Exam: Intubated , sedated, round pupils 3 mm in diameter, no JVD , ET tube in , resists eye opening CV: RRR, no MRG Lungs ; increased rales at both sides Abd : obese,NL BS today . abd wall edema on lower abdomen improved Ext : 3+ pitting edema on LE , R leg circumference > L. Chronic hyperpigmentation and skin thickening. Labs: Laboratory Results - last 24 hr 03/21/17 03/21/17 03/21/17 07:50 07:50 07:50 WBC 10.5 H RBC 4.14 Hgb 10.9 L Hct 34.2 L MCV 82.5 MCHC 31.8 L RDW 19.7 H Plt Count 137 MPV 8.8 Neutrophils % 86.3 H Lymphocytes % 6.3 L D Monocytes % 6.4 Eosinophils % 0.8 Basophils % 0.2 INR 4.28 H* Puncture Site ABG pH ABG pCO2 at Pt Temp ABG pO2 at Pt Temp ABG HCO3 ABG O2 Sat (Measured) ABG O2 Content ABG Base Excess Brian Test O2 Delivery Device Oxygen Flow Rate Vent Mode Vent Rate Mechanical Rate PEEP Pressure Support Vent Sodium 139 Potassium 4.2 Chloride 101 Carbon Dioxide 25 Anion Gap 13 BUN 94 H Creatinine 3.0 H Creat Clearance w eGFR 20.34 Random Glucose 124 H Calcium 7.9 L Total Bilirubin 0.8 AST 24 D ALT 13 D Alkaline Phosphatase 69 Total Protein 5.6 L Albumin 2.3 L 03/22/17 03/22/17 03/22/17 05:15 05:15 05:15 WBC 7.8 RBC 4.10 Hgb 10.8 L Hct 34.4 L MCV 83.9 MCHC 31.4 L RDW 19.7 H Plt Count 142 MPV 8.5 Neutrophils % 82.0 Lymphocytes % 7.3 L Monocytes % 8.6 Eosinophils % 1.9 D Basophils % 0.2 INR 1.66 H D Puncture Site ABG pH ABG pCO2 at Pt Temp ABG pO2 at Pt Temp ABG HCO3 ABG O2 Sat (Measured) ABG O2 Content ABG Base Excess Brian Test O2 Delivery Device Oxygen Flow Rate Vent Mode Vent Rate Mechanical Rate PEEP Pressure Support Vent Sodium 140 Potassium 4.3 Chloride 99 Carbon Dioxide 27 Anion Gap 14 BUN 98 H Creatinine 3.1 H Creat Clearance w eGFR Random Glucose 129 H Calcium 8.3 L Total Bilirubin AST ALT Alkaline Phosphatase Total Protein Albumin 03/22/17 07:10 WBC RBC Hgb Hct MCV MCHC RDW Plt Count MPV Neutrophils % Lymphocytes % Monocytes % Eosinophils % Basophils % INR Puncture Site Right radial ABG pH 7.25 L D ABG pCO2 at Pt Temp 58.7 H D ABG pO2 at Pt Temp 67.6 L D ABG HCO3 25.1 ABG O2 Sat (Measured) 92.3 ABG O2 Content 14.0 L ABG Base Excess -2.3 L Brian Test Positive O2 Delivery Device Vent Oxygen Flow Rate 40% Vent Mode A/c Vent Rate 14 Mechanical Rate Yes PEEP 5.0 Pressure Support Vent 450 Sodium Potassium Chloride Carbon Dioxide Anion Gap BUN Creatinine Creat Clearance w eGFR Random Glucose Calcium Total Bilirubin AST ALT Alkaline Phosphatase Total Protein Albumin Imaging:cxray reviewed. worse Assessment/Plan: ASSESSMENT AND PLAN: 76 y/o man with h/o Severe cardiomypathy( non ischemic ) ,with severely reduced EF, and PULm HTN, Diastolic dysfunction , A fib on AC, who presented with cardiac arrest (V fib ) from his fpc 1- S/P cardiac arrest: due to severe R sided cardiomyopathy. - dopamine requirements increased , now on 10 mcg/hr - cont Amio 400 mg BID x 1 week then 400 daily 2- Severe non-ischemic cardiomypoathy, with acute on chronic systolic and diastolic heart failure still in positive fluid balance despite starting lasix gtt. - cont lasix gt tat 10 mg/hr - give demedex - monitor I&Os 2- Acute hypoxic resp failure : due to heart failure. Possible development of Ventilator associated PNA , especially with increased purulent sputum , and worsening cxray with patchy infltrates. also , possible ARDS . - start zosyn and vanco - send sputum cx . - cont vent support , PEEP was increased to 8 today 4- Coumadin coagulopathy: resolved . INR is 1.6 5- A fib: rate is controlled , btu INR is subtherapeutic . - start heparin gtt - monitor rate - tele reviewed. 5- CKD : Cr slightly increased . monitor with diuresis DVT px :on AC Visit type - Emergency Visit Emergency Visit: Yes ED Registration Date: 03/17/17 Care time: The patient presented to the Emergency Department on the above date and was hospitalized for further evaluation of their emergent condition. - New Patient This patient is new to me today: No - Critical Care Critical Care patient: Yes Total Critical Care Time (in minutes): 35 Critical Care Statement: The care of this patient involved high complexity decision making to prevent further life threatening deterioration of the patient 's condition and/or to evalute & treat vital organ system(s) failure or risk of failure.
--- NOTE | 2017-03-22 08:32 | PN ---
Progress Note (short form) - Note Progress Note: Seen and examined in the ICU Remains intubated TLC placed given poor IV access and pressor requirements Lasix drip start for gross volume overload Increased dopamine requirements more acidotic on ABG this AM large amounts of thick yellow secretions this AM Current Medications Acetazolamide Sodium (Diamox Injection -) 250 mg IVPUSH ONCE ONE Stop: 03/22/17 08:16 Albuterol/Ipratropium (Duoneb -) 1 amp NEB Q6H PRN PRN Reason: SHORTNESS OF BREATH Amiodarone HCl (Cordarone -) 400 mg PO BID [facility] Stop: 03/25/17 22:01 Last Admin: 03/21/17 21:48 Dose: 400 mg Amiodarone HCl (Cordarone -) 400 mg PO DAILY [facility] Atorvastatin Calcium (Lipitor -) 80 mg NGT HS [facility] Last Admin: 03/21/17 21:48 Dose: 80 mg Chlorhexidine Gluconate (Hibiclens For Decolonization -) 1 applic TP HS [facility] Last Admin: 03/21/17 21:49 Dose: 1 applic Chlorhexidine Gluconate (Peridex -) 15 ml MM BID [facility] Last Admin: 03/21/17 21:48 Dose: 15 ml Midazolam HCl 100 mg/ Sodium (Chloride) 100 mls @ 2 mls/hr IVPB TITR SARAH; 2 MG/ HR PRN Reason: Protocol Last Admin: 03/21/17 21:48 Dose: 2 mls/hr Dopamine HCl/Dextrose (Dopamine 400 Mg/D5w -) 250 mls @ 27.386 mls/hr IVPB TITR SARAH; 5 MCG/KG/MIN PRN Reason: Protocol Last Titration: 03/21/17 17:07 Dose: 5 mcg/kg/min Fentanyl 500 mcg/ Dextrose 100 mls @ 10 mls/hr IJ TITR SARAH PRN Reason: 50 MCG/HR Last Titration: 03/21/17 16:00 Dose: 50 mcg/hr Furosemide 100 mg/ Dextrose 100 mls @ 10 mls/hr IVPB TITR SARAH PRN Reason: 10 MG/HR Last Titration: 03/21/17 17:07 Dose: 10 mg/hr Mupirocin (Bactroban Ointment (For Decolonization) -) 1 applic NS BID [facility] Stop: 03/22/17 21:59 Last Admin: 03/21/17 21:48 Dose: 1 applic Pantoprazole Sodium (Protonix 40mg Ivpb (Pre-Docked)) 40 mg IVPB DAILY SARAH Last Admin: 03/21/17 09:30 Dose: 40 mg Vital Signs Period Temp Pulse Resp BP Sys/Krishnan Pulse Ox Last 24 Hr 97.4 F-98.9 F 79-99 14-22 85-109/47-73 95-99 Intake & Output 03/19/17 03/20/17 03/21/17 03/22/17 23:59 23:59 23:59 23:59 Intake Total 0 950.6 2608.4 1432.8 Output Total 1050 1300 2200 400 Balance -1050 -349.4 408.4 1032.8 Weight 144.696 kg 141.521 kg 142.91 kg 142.11 kg Exam: Sedated and intubated HEENT: PERRL, TLC c/di Pulm: coarse rhonchi bronchial LLE CV: RRR Abd: obese, hypoactive BS Ext: +4 LE edema Neuro: RASS -3/4 CBCD WBC 7.8 K/mm3 (4.0-10.0) 03/22/17 05:15 RBC 4.10 M/mm3 (4.00-5.60) 03/22/17 05:15 Hgb 10.8 GM/dL (11.7-16.9) L 03/22/17 05:15 Hct 34.4 % (35.4-49) L 03/22/17 05:15 MCV 83.9 fl (80-96) 03/22/17 05:15 MCHC 31.4 g/dl (32.0-35.9) L 03/22/17 05:15 RDW 19.7 % (11.9-15.9) H 03/22/17 05:15 Plt Count 142 K/MM3 (134-434) 03/22/17 05:15 MPV 8.5 fl (7.5-11.1) 03/22/17 05:15 CMP Sodium 140 mmol/L (136-145) 03/22/17 05:15 Potassium 4.3 mmol/L (3.5-5.1) 03/22/17 05:15 Chloride 99 mmol/L (98-107) 03/22/17 05:15 Carbon Dioxide 27 mmol/L (21-32) 03/22/17 05:15 Anion Gap 14 (8-16) 03/22/17 05:15 BUN 98 mg/dL (7-18) H 03/22/17 05:15 Creatinine 3.1 mg/dL (0.7-1.3) H 03/22/17 05:15 Creat Clearance w eGFR 20.34 (>60) 03/21/17 07:50 Random Glucose 129 mg/dL (74-106) H 03/22/17 05:15 Calcium 8.3 mg/dL (8.5-10.1) L 03/22/17 05:15 Total Bilirubin 0.8 mg/dL (0.2-1.0) 03/21/17 07:50 AST 24 U/L (15-37) D 03/21/17 07:50 ALT 13 U/L (12-78) D 03/21/17 07:50 Alkaline Phosphatase 69 U/L (45-117) 03/21/17 07:50 Total Protein 5.6 g/dl (6.4-8.2) L 03/21/17 07:50 Albumin 2.3 g/dl (3.4-5.0) L 03/21/17 07:50 CARDIAC ENZYMES Creatine Kinase 146 IU/L (39-308) 03/18/17 10:23 Troponin I 0.16 ng/ml (0.00-0.05) H D 03/18/17 10:23 Microbiology 03/17/17 14:59 Blood - Peripheral Venous Blood Culture - Preliminary NO GROWTH OBTAINED AFTER 96 HOURS, INCUBATION TO CONTINUE FOR 1 DAYS. 03/17/17 14:55 Blood - Peripheral Venous Blood Culture - Preliminary NO GROWTH OBTAINED AFTER 96 HOURS, INCUBATION TO CONTINUE FOR 1 DAYS. CXR: ETT and TLC in ok position, PVC, L>R effusion, LLL retrocardiac consolidation ASSESSMENT AND PLAN: s/p Vfib Cardiac Arrest Acute on Chronic Hypoxic Respiratory Failure Acute on Chronic Diastolic Heart Failure Severe Pulmonary HTN s/p BiV PPM CAD +Troponins Atrial Fibrillation HTN CKD Hyperlipidemia DM COPD Morbid Obesity Obstructive Sleep Apnea - send sputum culture - add vanco and zosyn for HCAP/VAP - Lasix drip - add diuril - cont Fentanyl and versed drip with daily interruption - continue amiodarone - continue anticoagulation - transition dopamine to norepi and vasopressin gtt to maintain MAP >65 - poor visualization of left hemithorax on bedside ultrasound, will need CT chest when more stable - taper FiO2 to keep SpO2 >90% - increased PEEP given volume loss on CXR - decreased Tv for goal Pplat <30 (was 35 @450ml now 28 on 380ml) - increased RR for resp acidosis - spontaneous breathing trials as tolerated: held today given increasing pressors and secretions - enteral feeds - DVT/GI prophylaxis - continue ICU monitoring CCT 35min Mai BRANDTP Pulm/CCM CCT: 35m
[2017-03-22] MEDS ORDERED: HEPARIN NA (PORCINE) 5,000 UNITS/ML 1ML VIAL IVPUSH PRN (08:38)
[2017-03-22] MEDS ORDERED: NOREPINEPHRINE BITARTRATE 4 MG/4 ML ML IV ONE ×3 (08:40→20:17)
[2017-03-22] MEDS ORDERED: VASOPRESSIN 20 UNITS/ML VIAL IV ONE (08:41)
[2017-03-22] MEDS ORDERED: PT OWN MED DRAWER 7, Y5N ONE (09:23)
[2017-03-22] MEDS: NOREPINEPHRINE BITARTRATE 8,000 MCG in DEXTROSE 5%-WATER - 492 ML IV SCH ×2 (09:47→20:22)
[2017-03-22] MEDS: VASOPRESSIN 50 UNITS in SODIUM CHLORIDE 97.5 ML IVPB SCH (09:50)
[2017-03-22] MEDS: PANTOPRAZOLE SODIUM 40 MG/100 ML PRE-DOCKED IVPB SCH (09:52)
[2017-03-22] MEDS ORDERED: HEPARIN INFUSION - 500 ML IVPB ONE (09:53)
[2017-03-22] MEDS ORDERED: FUROSEMIDE 100 MG/10 ML INJECTABLE VIAL ONE ×2 (09:59→19:50)
[2017-03-22] MEDS: HEPARIN - 25,000 UNIT in SODIUM CHLORIDE 495 ML IV SCH (10:12)
[2017-03-22] MEDS: AMIODARONE HCL 200 MG TABLET (FP) PO SCH ×2 (10:13→21:31)
[2017-03-22] MEDS: CHLORHEXIDINE GLUCONATE 0.12% 15ML CUP MM SCH ×2 (10:14→21:31)
[2017-03-22] MEDS: MUPIROCIN 2% TOPICAL OINTMENT FOR DECOLONIZATION NS SCH (10:14)
[2017-03-22] MEDS ORDERED: PIPERACILLIN/TAZOB 3.375 GM/50 ML PRE-DOCKED IVPB ONE (10:15)
[2017-03-22] MEDS ORDERED: VANCOMYCIN 1,500 MG in DEXTROSE 5%-WATER - 500 ML IVPB ONE (10:30)
[2017-03-22 10:34] LABS: ARTERIAL BLD GAS O2 SATURATION 95.2 % (90-98.9); ARTERIAL BLOOD GAS BASE EXCESS -1.2 meq/l (-2-2); ARTERIAL BLOOD GAS HCO3 24.3 meq/L (22-26)
[2017-03-22 10:36] LABS: ALLENS TEST POSITIVE; ARTERIAL BLOOD GAS pH 7.33 (7.35-7.45)
[2017-03-22 10:37] LABS: ART PUNCT SITE RIGHT RADIAL; LPM/O2% 50%; MECH. VENT. ESPRIT; PT. ON O2? YES; TYPE OF O2 OT; VENT RATE 24; VT/PRESS 380
[2017-03-22] MEDS ORDERED: BENZOIN/ALOE VERA/STORAX/TOLU 58 ML BOTTLE ONE (12:26)
[2017-03-22] MEDS: FENTANYL INJECTION 500 MCG in DEXTROSE 5%-WATER - 90 ML IJ SCH (13:14)
--- NOTE | 2017-03-22 13:41 | PN ---
Progress Note, Physician Chief Complaint: Pt opens eyes to verbal request; moves right hand slightly. Niece, at bedside. History of Present Illness: The patient is a 76 year old black male, with a significant past medical history of diastolic CHF (severely reduced RVEF of uncertain etiology; severely dilated RV on 02/2017 ECHO, per pt's e learning coordinator at [facility]), (non- obstructive CAD by 2008 coronary angiogram), [employer] "biventricular pacemaker , COPD, HTN, HLD, Atrial Fibrillation, renal insufficiency, Morbid obesity, Prostate CA, Sleep apnea on O2, generalzied weakness (wheelchair-bound), Glaucoma BIBA from [facility] s/p Cardiac arrest. As per EMS, the patient was initially seated in PT doing leg exercises when he became unresponsive. Patient was brought back into his room in the MD and chest compressions were initiated by nursing staff. Down time was between 4-5 minutes. patient was shocked once and ROSC was noted. As per EMS, patient was given 150 mg of Amiodarone in the field and was brought into the ED for further evaluation. Upon arrival to the ED, patients (health care proxy) gave consent to intubate over the telephone. 2:48 PM- 20 mg of Etomidate given through IV 2:49 PM- 150 mg of Succinylcholine given through IV 2:50 PM- Patient intubated with 7.5 ET tube, positioned 24 cm at the lip Pt's says pt is followed closely by [facility] and cardiac groups. I spoke by telephone with pt's e learning coordinator, who provided much of the above history. - Current Medication List Current Medications: Active Medications Albuterol/Ipratropium (Duoneb -) 1 amp NEB Q6H PRN PRN Reason: SHORTNESS OF BREATH Amiodarone HCl (Cordarone -) 400 mg PO BID [facility] Stop: 03/25/17 22:01 Last Admin: 03/22/17 10:13 Dose: 400 mg Amiodarone HCl (Cordarone -) 400 mg PO DAILY [facility] Atorvastatin Calcium (Lipitor -) 80 mg NGT [facility] Last Admin: 03/21/17 21:48 Dose: 80 mg Chlorhexidine Gluconate (Hibiclens For Decolonization -) 1 applic TP [facility] Last Admin: 03/21/17 21:49 Dose: 1 applic Chlorhexidine Gluconate (Peridex -) 15 ml MM BID SARAH Last Admin: 03/22/17 10:14 Dose: 15 ml Heparin Sodium (Porcine) (Heparin -) 1,000 unit IVPUSH PRN PRN PRN Reason: Heparin Heparin Sodium (Porcine) (Heparin -) 5,000 unit IVPUSH PRN PRN PRN Reason: Heparin Midazolam HCl 100 mg/ Sodium (Chloride) 100 mls @ 2 mls/hr IVPB TITR SARAH; 2 MG/ HR PRN Reason: Protocol Last Admin: 03/21/17 21:48 Dose: 2 mls/hr Fentanyl 500 mcg/ Dextrose 100 mls @ 10 mls/hr IJ TITR SARAH PRN Reason: 50 MCG/HR Last Admin: 03/22/17 13:14 Dose: 10 mls/hr Furosemide 100 mg/ Dextrose 100 mls @ 10 mls/hr IVPB TITR SARAH PRN Reason: 10 MG/HR Last Titration: 03/21/17 17:07 Dose: 10 mg/hr Norepinephrine Bitartrate 8, (000 mcg/ Dextrose) 500 mls @ 18.75 mls/hr IV TITR SARAH; 5 MCG/MIN PRN Reason: Protocol Last Admin: 03/22/17 09:47 Dose: 37.5 mls/hr Vasopressin 50 units/ Sodium (Chloride) 100 mls @ 4.8 mls/hr IVPB ASDIR SARAH; 2.4 UNITS/HR PRN Reason: Protocol Last Admin: 03/22/17 09:50 Dose: 4.8 mls/hr Heparin Sodium (Porcine) 25, (000 unit/ Sodium Chloride) 500 mls @ 20 mls/hr IV TITR SARAH; 1,000 UNIT/HR PRN Reason: Protocol Last Admin: 03/22/17 10:12 Dose: 20 mls/hr Mupirocin (Bactroban Ointment (For Decolonization) -) 1 applic NS BID [facility] Stop: 03/22/17 21:59 Last Admin: 03/22/17 10:14 Dose: 1 applic Pantoprazole Sodium (Protonix 40mg Ivpb (Pre-Docked)) 40 mg IVPB DAILY [facility] Last Admin: 03/22/17 09:52 Dose: 40 mg Piperacillin Sod/Tazobactam Sod (Zosyn 3.375gm Ivpb (Pre-Docked)) 3.375 gm IVPB Q8H-IV SARAH PRN Reason: Protocol - Objective Vital Signs: Vital Signs Temperature 98.6 F 03/22/17 12:00 Pulse Rate 78 03/22/17 12:00 Respiratory Rate 24 03/22/17 12:07 Blood Pressure 93/66 03/22/17 12:00 O2 Sat by Pulse Oximetry (%) 94 L 03/22/17 10:01 Constitutional: Yes: Obese Eyes: Yes: WNL HENT: Yes: WNL Neck: Yes: Decreased ROM Cardiovascular: Yes: Pulse Irregular Respiratory: Yes: Diminished Gastrointestinal: Yes: Abdomen, Obese Genitourinary: No: Anuria Musculoskeletal: Yes: Joint Stiffness, Joint Swelling, Muscle Weakness Extremities: Yes: Cool Edema: Yes Edema: LUE: 2+, RUE: 2+, LLE: 3+, RLE: 3+ Peripheral Pulses WNL: No Peripheral Pulses: Left Doralis Pedis: 1+, Right Dorsalis Pedis: 1+ Integumentary: Yes: Venous Stasis Changes Neurological: Yes: Weakness Psychiatric: Yes: WNL Labs: CBC, BMP 03/22/17 05:15 03/22/17 05:15 INR, PTT INR 1.66 (0.82-1.09) H D 03/22/17 05:15 Abnormal Lab Results 03/22/17 03/22/17 03/22/17 05:15 05:15 05:15 Hgb 10.8 L Hct 34.4 L MCHC 31.4 L RDW 19.7 H Lymphocytes % 7.3 L INR 1.66 H D ABG pH ABG pCO2 at Pt Temp ABG pO2 at Pt Temp ABG O2 Content ABG Base Excess BUN 98 H Creatinine 3.1 H Random Glucose 129 H Calcium 8.3 L 03/22/17 03/22/17 07:10 10:35 Hgb Hct MCHC RDW Lymphocytes % INR ABG pH 7.25 L D 7.33 L ABG pCO2 at Pt Temp 58.7 H D 47.3 H ABG pO2 at Pt Temp 67.6 L D ABG O2 Content 14.0 L 13.3 L ABG Base Excess -2.3 L BUN Creatinine Random Glucose Calcium - ....Imaging Chest X-ray: Image Reviewed (no significant change (pulmonary vascular congestion)) Other: Image Reviewed (telemetry: AF; periods of ventricular pacing) Problem List - Problems (1) Cardiac arrest Assessment/Plan: Now on PO amiodarone. On dopamine and Vasopression. F/u Is and Os, respiratory response to IV furosemide. Consider change from PPI to another class, eg ranitidine, especially due to pt' s multiple cardiac issues. Maintain K 4-4.5, Mg 2-2.3. Pt's poor prognosis was discussed with . She has been aware of his heart failure for several years, and has been told by pt's e learning coordinator at [facility] that course is progressively worsening. (Pt sees PMD and e learning coordinator, alternating every 6 weeks, and has been hospitalized almost monthly lately). She still expresses surprise at his serious condition, and cannot bear thinking he may not come home. Code(s): I46.9 - CARDIAC ARREST, CAUSE UNSPECIFIED (2) Acute on chronic diastolic CHF (congestive heart failure) Assessment/Plan: see under "cardiac arrest'. Code(s): I50.33 - ACUTE ON CHRONIC DIASTOLIC (CONGESTIVE) HEART FAILURE (3) Hyperlipidemia Assessment/Plan: high-dose statin. Code(s): E78.5 - HYPERLIPIDEMIA, UNSPECIFIED (4) Sleep apnea Code(s): G47.30 - SLEEP APNEA, UNSPECIFIED (5) HTN (hypertension) Code(s): I10 - ESSENTIAL (PRIMARY) HYPERTENSION (6) 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 hypertension Code(s): I27.2 - OTHER SECONDARY PULMONARY HYPERTENSION (7) Hyperkalemia Code(s): E87.5 - HYPERKALEMIA (8) Anemia Code(s): D64.9 - ANEMIA, UNSPECIFIED (9) Acute on chronic renal failure Code(s): N17.9 - ACUTE KIDNEY FAILURE, UNSPECIFIED N18.9 - CHRONIC KIDNEY DISEASE, UNSPECIFIED
[2017-03-22] MEDS: FUROSEMIDE INJECTION 100 MG in DEXTROSE 5%-WATER - 90 ML IVPB SCH (13:46)
[2017-03-22] MEDS: HYDROCORTISONE SOD SUCCINATE 100 MG/2 ML VIAL IVPB SCH ×2 (18:34→21:31)
[2017-03-22] MEDS: ATORVASTATIN CA 80 MG TABLET (FP) NGT SCH (21:32)
[2017-03-22] MEDS: CHLORHEXIDINE GLUCONATE 4% CLEANSER FOR DECOLONIZATION TP SCH (21:32)
[2017-03-23] MEDS ORDERED: NOREPINEPHRINE BITARTRATE 4 MG/4 ML ML IV ONE ×5 (00:59→22:44)
[2017-03-23] MEDS: HYDROCORTISONE SOD SUCCINATE 100 MG/2 ML VIAL IVPB SCH ×3 (03:21→17:09)
[2017-03-23] MEDS ORDERED: VASOPRESSIN 20 UNITS/ML VIAL IV ONE ×2 (04:30→07:51)
[2017-03-23] MEDS: HEPARIN - 25,000 UNIT in SODIUM CHLORIDE 495 ML IV SCH ×2 (04:35→09:10)
[2017-03-23] MEDS: VASOPRESSIN 50 UNITS in SODIUM CHLORIDE 97.5 ML IVPB SCH ×2 (04:36→09:08)
[2017-03-23 06:56] LABS: MCH 26.2 pg (25.7-33.7); MCHC 31.7 g/dl (32.0-35.9); MEAN CELL VOLUME 82.9 fl (80-96); PLATELET COUNT 171 K/MM3 (134-434); RDW 19.8 % (11.9-15.9); WHITE BLOOD COUNT 8.2 K/mm3 (4.0-10.0)
[2017-03-23 07:08] LABS: INR 1.53 (0.82-1.09)
[2017-03-23 07:09] LABS: CALCIUM 7.5 mg/dL (8.5-10.1); MAGNESIUM 2.8 mg/dL (1.8-2.4)
[2017-03-23 07:10] LABS: CREATININE 3.2 mg/dL (0.7-1.3); PHOSPHOROUS 5.9 mg/dL (2.5-4.9)
[2017-03-23 07:41] LABS: ALLENS TEST POSITIVE; ART PUNCT SITE RIGHT RADIAL; ARTERIAL BLD GAS O2 SATURATION 97.5 % (90-98.9); ARTERIAL BLOOD GAS BASE EXCESS -0.7 meq/l (-2-2); ARTERIAL BLOOD GAS HCO3 24.3 meq/L (22-26); ARTERIAL BLOOD GAS PO2 93.5 mmHg (70-100); ARTERIAL BLOOD GAS pH 7.36 (7.35-7.45); LPM/O2% 50%; PT. ON O2? YES
[2017-03-23 07:42] LABS: MECH. VENT. ESPRIT; TYPE OF O2 MEC.VENT; VENT RATE 24; VT/PRESS 380
[2017-03-23] MEDS: NOREPINEPHRINE BITARTRATE 8,000 MCG in DEXTROSE 5%-WATER - 492 ML IV SCH (09:09)
[2017-03-23] MEDS: AMIODARONE HCL 200 MG TABLET (FP) PO SCH ×2 (09:12→21:32)
[2017-03-23] MEDS: CHLORHEXIDINE GLUCONATE 0.12% 15ML CUP MM SCH ×2 (09:12→21:32)
[2017-03-23] MEDS: PANTOPRAZOLE SODIUM 40 MG/100 ML PRE-DOCKED IVPB SCH (09:13)
[2017-03-23] MEDS ORDERED: FUROSEMIDE 100 MG/10 ML INJECTABLE VIAL ONE ×3 (09:49→22:44)
[2017-03-23] MEDS ORDERED: PROPOFOL 100 ML ONE ×2 (10:04→17:16)
[2017-03-23] MEDS ORDERED: DOPAMINE 400 MG/D5W - 250 ML IVPB ONE ×2 (10:04→19:41)
[2017-03-23] MEDS: DOPAMINE 400 MG/D5W - 250 ML IVPB SCH (12:05)
[2017-03-23] MEDS: PROPOFOL 100 ML IVPB SCH (12:05)
--- NOTE | 2017-03-23 12:07 | PN ---
Teaching Attending Note Name of Resident: Fani Allison ATTENDING PHYSICIAN STATEMENT I saw and evaluated the patient. I reviewed the resident's note and discussed the case with the resident. I agree with the resident's findings and plan as documented. SUBJECTIVE: Patient seen and examined in the ICU. Remains on significant pressor support ( NE 25 and Vaso 2.4). AC mode of vent 50% FiO2. Lasix drip at 10mg/hr. Intake & Output 03/20/17 03/21/17 03/22/17 03/23/17 23:59 23:59 23:59 23:59 Intake Total 950.6 2608.4 3293.7 2487.2 Output Total 1300 2200 775 900 Balance -349.4 408.4 2518.7 1587.2 Weight 312 lb 315 lb 1 oz 313 lb 4.8 oz 321 lb 13.998 oz Last Vital Signs Temp Pulse Resp BP Pulse Ox 98.3 F 77 24 98/52 97 03/23/17 06:00 03/23/17 09:30 03/23/17 11:55 03/23/17 09:09 03/23/17 11:56 Active Medications Albuterol/Ipratropium (Duoneb -) 1 amp NEB Q6H PRN PRN Reason: SHORTNESS OF BREATH Amiodarone HCl (Cordarone -) 400 mg PO BID [facility] Stop: 03/25/17 22:01 Last Admin: 03/23/17 09:12 Dose: 400 mg Amiodarone HCl (Cordarone -) 400 mg PO DAILY [facility] Atorvastatin Calcium (Lipitor -) 80 mg NGT HS [facility] Last Admin: 03/22/17 21:32 Dose: 80 mg Chlorhexidine Gluconate (Hibiclens For Decolonization -) 1 applic TP HS [facility] Last Admin: 03/22/17 21:32 Dose: 1 applic Chlorhexidine Gluconate (Peridex -) 15 ml MM BID [facility] Last Admin: 03/23/17 09:12 Dose: 15 ml Heparin Sodium (Porcine) (Heparin -) 1,000 unit IVPUSH PRN PRN PRN Reason: Heparin Heparin Sodium (Porcine) (Heparin -) 5,000 unit IVPUSH PRN PRN PRN Reason: Heparin Hydrocortisone Sodium Succinate (Solu-Cortef -) 100 mg IVPB Q8H-IV SARAH Furosemide 100 mg/ Dextrose 100 mls @ 10 mls/hr IVPB TITR SARAH PRN Reason: 10 MG/HR Last Admin: 03/22/17 13:46 Dose: 10 mls/hr Norepinephrine Bitartrate 8, (000 mcg/ Dextrose) 500 mls @ 18.75 mls/hr IV TITR SARAH; 5 MCG/MIN PRN Reason: Protocol Last Admin: 03/23/17 09:09 Dose: 93.75 mls/hr Heparin Sodium (Porcine) 25, (000 unit/ Sodium Chloride) 500 mls @ 20 mls/hr IV TITR SARAH; 1,000 UNIT/HR PRN Reason: Protocol Last Admin: 03/23/17 09:10 Dose: 20 mls/hr Dopamine HCl/Dextrose (Dopamine 400 Mg/D5w -) 250 mls @ 27.375 mls/hr IVPB TITR SARAH; 5 MCG/KG/MIN PRN Reason: Protocol Last Admin: 03/23/17 12:05 Dose: 27.375 mls/hr Propofol (Diprivan -) 100 mls @ 4.38 mls/hr IVPB TITR SARAH; 5 MCG/KG/MIN PRN Reason: Protocol Last Admin: 03/23/17 12:05 Dose: 4.38 mls/hr Pantoprazole Sodium (Protonix 40mg Ivpb (Pre-Docked)) 40 mg IVPB DAILY [facility] Last Admin: 03/23/17 09:13 Dose: 40 mg Piperacillin Sod/Tazobactam Sod (Zosyn 3.375gm Ivpb (Pre-Docked)) 3.375 gm IVPB Q8H-IV SARAH PRN Reason: Protocol Exam: Sedated and intubated HEENT: PERRL, TLC c/di Pulm: coarse rhonchi bronchial LLE CV: RRR Abd: obese, hypoactive BS Ext: +4 LE edema Neuro: non-focal Laboratory Results - last 24 hr 03/22/17 03/22/17 03/23/17 18:25 21:51 05:35 WBC 8.2 RBC 3.87 L Hgb 10.1 L Hct 32.0 L MCV 82.9 MCHC 31.7 L RDW 19.8 H Plt Count 171 D MPV 9.0 INR PTT (Actin FS) 59.6 H D Puncture Site ABG pH ABG pCO2 at Pt Temp ABG pO2 at Pt Temp ABG HCO3 ABG O2 Sat (Measured) ABG O2 Content ABG Base Excess Brian Test O2 Delivery Device Oxygen Flow Rate Vent Mode Vent Rate Mechanical Rate PEEP Pressure Support Vent Sodium Potassium Chloride Carbon Dioxide Anion Gap BUN Creatinine POC Glucometer [id number] Random Glucose Calcium Phosphorus Magnesium Random Vancomycin 03/23/17 03/23/17 03/23/17 05:35 05:35 05:35 WBC RBC Hgb Hct MCV MCHC RDW Plt Count MPV INR 1.53 H PTT (Actin FS) 58.5 H Puncture Site ABG pH ABG pCO2 at Pt Temp ABG pO2 at Pt Temp ABG HCO3 ABG O2 Sat (Measured) ABG O2 Content ABG Base Excess Brian Test O2 Delivery Device Oxygen Flow Rate Vent Mode Vent Rate Mechanical Rate PEEP Pressure Support Vent Sodium 135 L Potassium 4.5 Chloride 97 L Carbon Dioxide 26 Anion Gap 12 BUN 101 H Creatinine 3.2 H POC Glucometer Random Glucose 216 H D Calcium 7.5 L Phosphorus 5.9 H D Magnesium 2.8 H Random Vancomycin 03/23/17 03/23/17 06:00 07:25 WBC RBC Hgb Hct MCV MCHC RDW Plt Count MPV INR PTT (Actin FS) Puncture Site Right radial ABG pH 7.36 ABG pCO2 at Pt Temp 43.7 ABG pO2 at Pt Temp 93.5 D ABG HCO3 24.3 ABG O2 Sat (Measured) 97.5 ABG O2 Content 17.3 ABG Base Excess -0.7 Brian Test Positive O2 Delivery Device Mec.vent Oxygen Flow Rate 50% Vent Mode A/c Vent Rate 24 Mechanical Rate Esprit PEEP 8.0 Pressure Support Vent 380 Sodium Potassium Chloride Carbon Dioxide Anion Gap BUN Creatinine POC Glucometer Random Glucose Calcium Phosphorus Magnesium Random Vancomycin 10.299 CXR: ETT and TLC in good position, L>R effusion, LLL retrocardiac consolidation ASSESSMENT AND PLAN: s/p Vfib Cardiac Arrest Acute on Chronic Hypoxic Respiratory Failure Acute on Chronic Diastolic Heart Failure Severe Pulmonary HTN s/p BiV PPM CAD +Troponins Atrial Fibrillation HTN CKD Hyperlipidemia DM COPD Morbid Obesity Obstructive Sleep Apnea - ID evaluation - Increase Lasix drip to 15mg/hr - D/C Fentanyl and versed drip -> propofol if needed - amiodarone - AC - Will CT chest once hemodynamics are more stable - Lung protective ventilation - spontaneous breathing trials as tolerated: held today given increasing pressors and secretions - enteral feeds - DVT/GI prophylaxis - Given history of progressively worsening HF, overall prognosis is poor. Will likely need Trach later this week. 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 - . Renal evaluation. Dr Gomez critical care time spent in reviewing chart, evaluating patient and formulating plan 40 min
--- NOTE | 2017-03-23 12:57 | PN ---
Teaching Attending Note Name of Resident: Cleve Bourgeois ATTENDING PHYSICIAN STATEMENT I saw and evaluated the patient. I reviewed the resident's note and discussed the case with the resident. I agree with the resident's findings and plan as documented. SUBJECTIVE: no events over night OBJECTIVE: Intubated , sedated, round pupils 3 mm in diameter, no JVD , ET tube in , resists eye opening CV: RRR, no MRG Lungs ;rales at R base heard today Abd : obese,NL BS today . abd wall edema on lower abdomen Ext : 3+ pitting edema on LE , R leg circumference > L. Chronic hyperpigmentation and skin thickening. ASSESSMENT AND PLAN: 76 y/o man with h/o Severe cardiomypathy( non ischemic ) ,with severely reduced EF, and PULm HTN, Diastolic dysfunction , A fib on AC, who presented with cardiac arrest (V fib ) from his care home 1- S/P cardiac arrest: due to severe R sided cardiomyopathy. - cont vaso and levo as pressors - cont Amio 400 mg BID x 1 week then 400 daily starting on 03/26 2- Severe non-ischemic cardiomypoathy, with acute on chronic systolic and diastolic heart failure still in positive fluid balance despite starting lasix gtt at 10 /hr - agree with increasing lasix to 15 mg/hr - monitor I&Os - HD might be the next step - ? milrinon 2- Acute hypoxic resp failure :due to CHF , ?PNA -received zosyn and vanco yesterday due to purulent sputum . - ID eval - follow sputum cx - cont Vent support 4- Coumadin coagulopathy: resolved 5- A fib: rate is controlled , - cont heparin gtt - monitor rate 5- CKD : Cr slightly increased . monitor with diuresis \renal consult DVT px :on AC Critical Care Total Critical Care Time (in minutes): 45 Critical Care Statement: The care of this patient involved high complexity decision making to prevent further life threatening deterioration of the patient 's condition and/or to evalute & treat vital organ system(s) failure or risk of failure.
[2017-03-23] MEDS: FUROSEMIDE INJECTION 100 MG in DEXTROSE 5%-WATER - 90 ML IVPB SCH (13:35)
--- NOTE | 2017-03-23 14:50 | CONSULT ---
Consult Consult Specialty:: Nephrology ( Drs. Cline/ Rajendra) Reason for Consultation:: Many thanks for this consult referral. 76 y/o male with extensive medical history admitted with Cardiac arrest. ACLS protocol initiated and the patient was resucitated. Currently intubated, vent supported , on Propofol, Profoundly Hypotensive, on Levophed and dopamine, Massively edematous, and on IV Lasix infusion, On Amiodarone, and IV Zosyn. The azotemia is getting worse, and hence the Renal consult. 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 Cardio/Vascular: Yes: AFIB, CHF, HTN, Pulmonary Hypertension Pulmonary: Yes: COPD, Sleep Apnea Gastrointestinal: No: GI Bleed Renal/: Yes: Renal Failure, Renal Inusuff Endocrine: No: Hyperthyroidism, Hypothyroidism - Past Surgical History Past Surgical History: Yes: Permanent Pacemaker - Alcohol/Substance Use Hx Alcohol Use: No - Smoking History Smoking history: Unknown if ever smoked - Social History Usual Living Arrangement: With Spouse Home Medications - Allergies Allergies/Adverse Reactions: Allergies Allergy/AdvReac Type Severity Reaction Status Date / Time No Known Allergies Allergy Verified 03/17/17 14:59 - Home Medications Home Medications: Ambulatory Orders Allopurinol 300 mg PO DAILY 03/17/17 Digoxin [Lanoxin -] 0.125 mg PO DAILY 03/17/17 Docusate Sodium [Colace -] 300 mg PO HS 03/17/17 Ferrous Sulfate 650 mg PO BID 03/17/17 Furosemide [Lasix -] 80 mg PO DAILY 03/17/17 Latanoprost 0.005% Eye Drops [Xalatan 0.005% Eye Drops -] 1 drop OU HS 03/17/17 Metolazone [Zaroxolyn -] 2.5 mg PO AM 03/17/17 Nystatin Cream [Mycostatin] 1 applic TP BID 03/17/17 Polyethylene Glycol 3350 [Miralax (For Daily Use) -] 17 gm PO DAILY 03/17/17 Sennosides [Evac-U-Gen] 2 tab PO DAILY 03/17/17 Simvastatin [Zocor -] 80 mg PO HS 03/17/17 Sod Lactate/Amm Lact/Pot Lact [Amlactin Ultra Body Cream] 1 applic TP BID 05/02/ 17 Triamcinolone 0.1% Cream [Aristocort] 1 applic TP BID 03/17/17 Warfarin Na [Coumadin -] 7.5 mg PO Q7D 03/17/17 Warfarin Sodium [Coumadin] 5 mg PO ASDIR 03/17/17 Review of Systems - Review of Systems Constitutional: reports: Lethargy Cardiovascular: reports: Edema, Palpitations, Shortness of Breath Respiratory: reports: SOB Gastrointestinal: reports: Bloating Genitourinary: reports: Testicular Swelling Neurological: reports: Change in LOC Physical Exam Vital Signs: Vital Signs Temperature 98 F 03/23/17 12:00 Pulse Rate 94 H 03/23/17 12:00 Respiratory Rate 24 03/23/17 14:24 Blood Pressure 104/56 03/23/17 12:00 O2 Sat by Pulse Oximetry (%) 97 03/23/17 11:56 HENT: Yes: Normocephalic Neck: Yes: Trachea Midline Cardiovascular: Yes: S1, S2, S4 Respiratory: Yes: Diminished, Mechanically Ventilated, Poor Air Entry, Other Gastrointestinal: Yes: Abdomen, Obese Renal/: Yes: Ridley Present, Other (Ridley catheter draing clody urine) Edema: Yes Edema: LUE: 4+, RUE: 4+, LLE: 4+, RLE: 4+ Neurological: Yes: Unresponsive Labs: CBC, BMP 03/23/17 05:35 03/23/17 05:35 Imaging - Results Chest X-ray: Report Reviewed Cat Scan: Report Reviewed Ultrasound: Report Reviewed Problem List - Problems (1) A-fib Code(s): I48.91 - UNSPECIFIED ATRIAL FIBRILLATION Qualifiers: Atrial fibrillation type: unspecified Qualified Code(s): I48.91 - Unspecified atrial fibrillation (2) Acute on chronic diastolic CHF (congestive heart failure) Code(s): I50.33 - ACUTE ON CHRONIC DIASTOLIC (CONGESTIVE) HEART FAILURE (3) Acute on chronic renal failure Code(s): N17.9 - ACUTE KIDNEY FAILURE, UNSPECIFIED N18.9 - CHRONIC KIDNEY DISEASE, UNSPECIFIED (4) Anemia Code(s): D64.9 - ANEMIA, UNSPECIFIED (5) CKD (chronic kidney disease) Code(s): N18.9 - CHRONIC KIDNEY DISEASE, UNSPECIFIED Qualifiers: Chronic kidney disease stage: stage 4 (severe) Qualified Code(s): N18.4 - Chronic kidney disease, stage 4 (severe) (6) Hyperkalemia Code(s): E87.5 - HYPERKALEMIA (7) Anasarca Code(s): R60.1 - GENERALIZED EDEMA Assessment/Plan 76 y/o male with multiple medical problems: Acute Kidney Injury. Nonoliguric on IV Lasix infusion. There is significant Renal hypoperfusionProfound Hypotension, on Pressor agents. BP in acceptable range at thsi point. Profound Hypotension due to severe diastolic dysfunction. Massive anasarca. Lasix infusion to continue. High Anion Gap acidosis , possibly a combination of uremia and lactic acidosis ( Hypoperfusion) Plan: IV Lasix infusion Pressor support Vent support IV Abx While measures to remove excess volume may be helpful, at this point it seems extremely risky and futile. Had lenthy discussion with the family about the limits of available therapeutic inteventions, given his many serious co-morbid conditions. Over all prognosis : Poor Thank you. Will follow with you. Jazmin Cline MD
--- NOTE | 2017-03-23 15:02 | PN ---
Progress Note, Physician History of Present Illness: The patient is a 76 year old black male, with a significant past medical history of diastolic CHF (severely reduced RVEF of uncertain etiology; severely dilated RV on 02/2017 ECHO, per pt's office auditor at [facility]), (non- obstructive CAD by 2008 coronary angiogram), Medtronic "biventricular pacemaker , COPD, HTN, HLD, Atrial Fibrillation, renal insufficiency, Morbid obesity, Prostate CA, Sleep apnea on O2, generalzied weakness (wheelchair-bound), Glaucoma BIBA from [facility] s/p Cardiac arrest. As per EMS, the patient was initially seated in PT doing leg exercises when he became unresponsive. [facility] and chest compressions were initiated by nursing staff. Down time was between 4-5 minutes. patient was shocked once and ROSC was noted. As per EMS, patient was given 150 mg of Amiodarone in the field and was brought into the ED for further evaluation. Upon arrival to the ED, patients (health care proxy) gave consent to intubate over the telephone. 2:48 PM- 20 mg of Etomidate given through IV 2:49 PM- 150 mg of Succinylcholine given through IV 2:50 PM- Patient intubated with 7.5 ET tube, positioned 24 cm at the lip Pt's says pt is followed closely by [facility] and cardiac groups. I spoke by telephone with pt's office auditor, who provided much of the above history. - Current Medication List Current Medications: Active Medications Albuterol/Ipratropium (Duoneb -) 1 amp NEB Q6H PRN PRN Reason: SHORTNESS OF BREATH Amiodarone HCl (Cordarone -) 400 mg PO BID [facility] Stop: 03/25/17 22:01 Last Admin: 03/23/17 09:12 Dose: 400 mg Amiodarone HCl (Cordarone -) 400 mg PO DAILY [facility] Atorvastatin Calcium (Lipitor -) 80 mg NGT [facility] Last Admin: 03/22/17 21:32 Dose: 80 mg Chlorhexidine Gluconate (Hibiclens For Decolonization -) 1 applic TP [facility] Last Admin: 03/22/17 21:32 Dose: 1 applic Chlorhexidine Gluconate (Peridex -) 15 ml MM BID [facility] Last Admin: 03/23/17 09:12 Dose: 15 ml Heparin Sodium (Porcine) (Heparin -) 1,000 unit IVPUSH PRN PRN PRN Reason: Heparin Heparin Sodium (Porcine) (Heparin -) 5,000 unit IVPUSH PRN PRN PRN Reason: Heparin Hydrocortisone Sodium Succinate (Solu-Cortef -) 100 mg IVPB Q8H-IV SARAH Furosemide 100 mg/ Dextrose 100 mls @ 10 mls/hr IVPB TITR SARAH PRN Reason: 10 MG/HR Last Admin: 03/22/17 13:46 Dose: 10 mls/hr Norepinephrine Bitartrate 8, (000 mcg/ Dextrose) 500 mls @ 18.75 mls/hr IV TITR SARAH; 5 MCG/MIN PRN Reason: Protocol Last Admin: 03/23/17 09:09 Dose: 93.75 mls/hr Heparin Sodium (Porcine) 25, (000 unit/ Sodium Chloride) 500 mls @ 20 mls/hr IV TITR SARAH; 1,000 UNIT/HR PRN Reason: Protocol Last Admin: 03/23/17 09:10 Dose: 20 mls/hr Dopamine HCl/Dextrose (Dopamine 400 Mg/D5w -) 250 mls @ 27.375 mls/hr IVPB TITR SARAH; 5 MCG/KG/MIN PRN Reason: Protocol Last Admin: 03/23/17 12:05 Dose: 27.375 mls/hr Propofol (Diprivan -) 100 mls @ 4.38 mls/hr IVPB TITR SARAH; 5 MCG/KG/MIN PRN Reason: Protocol Last Titration: 03/23/17 12:11 Dose: 20 mcg/kg/min Pantoprazole Sodium (Protonix 40mg Ivpb (Pre-Docked)) 40 mg IVPB DAILY SARAH Last Admin: 03/23/17 09:13 Dose: 40 mg Piperacillin Sod/Tazobactam Sod (Zosyn 3.375gm Ivpb (Pre-Docked)) 3.375 gm IVPB Q8H-IV SARAH PRN Reason: Protocol - Objective Vital Signs: Vital Signs Temperature 98 F 03/23/17 12:00 Pulse Rate 94 H 03/23/17 12:00 Respiratory Rate 24 03/23/17 14:24 Blood Pressure 104/56 03/23/17 12:00 O2 Sat by Pulse Oximetry (%) 97 03/23/17 11:56 Eyes: Yes: WNL, Conjunctiva Clear, EOM Intact HENT: Yes: WNL, Atraumatic, Normocephalic Neck: Yes: WNL, Supple, Trachea Midline Cardiovascular: Yes: WNL, Regular Rate and Rhythm Respiratory: Yes: Intubated, Mechanically Ventilated Gastrointestinal: Yes: WNL, Normal Bowel Sounds Genitourinary: Yes: WNL Musculoskeletal: Yes: WNL Extremities: Yes: WNL Edema: Yes Integumentary: Yes: WNL Neurological: Yes: Unresponsive, Other (sedated) ...Motor Strength: WNL Psychiatric: Yes: WNL Labs: CBC, BMP 03/23/17 05:35 03/23/17 05:35 INR, PTT INR 1.53 (0.82-1.09) H 03/23/17 05:35 Assessment/Plan - Problems (1) Cardiac arrest Assessment/Plan: Pt reportedly received one shock on AED order. Now intubated; EKG shows ventricular pacing.; no arrhythmias on telemetry. White-out of left hemithorax. Consider therapeutic hypothermia. Medtronic "biventricular" PPM, per interogated VT VF arrest. Consultation from dr. Bello electrophysiology appreciated. Will need ICD if patient survives. Cont Amiodarone for now. supplement K and Mg echo Pending Keep K+ 4-4.5, Mg 2-2.3. F/u Is and Os, BP. TNI 0.03; f/u serially. (Hx non-obstructive CAD on coronary angiogram 2008). Per pt's office auditor, pt has had a long course of nonischemic cardiomyopathy ( normal LVEF; severely reduced RVEF, severely dilated RV, severe pulmonary HTN) of unknown etiology; chronic renal dysfunction (BUN in 90s-100/BUN 2-3), essentially wheelchair-bound. Per office auditor, pt and family reportedly had discussion with palliative care team on last admission 02/2017 because of his poor health and prognosis, but family recieved the information with making a decision, and palliative care was "withdrawn". Hx AF; INR 3.3. On digoxin at home; f/u level, and keep 0.5-1.0. Pt given amiodarone in the field. Elevated electrolytes, BUN/Cr; f/u with configuration technician. On dopamine and Vasopression. F/u Is and Os, respiratory response to IV furosemide. Code(s): I46.9 - CARDIAC ARREST, CAUSE UNSPECIFIED (2) Acute on chronic diastolic CHF (congestive heart failure) Assessment/Plan: see under "cardiac arrest'. Code(s): I50.33 - ACUTE ON CHRONIC DIASTOLIC (CONGESTIVE) HEART FAILURE (3) Hyperlipidemia Assessment/Plan: high-dose statin. Code(s): E78.5 - HYPERLIPIDEMIA, UNSPECIFIED (4) Sleep apnea Code(s): G47.30 - SLEEP APNEA, UNSPECIFIED (5) HTN (hypertension) Code(s): I10 - ESSENTIAL (PRIMARY) HYPERTENSION (6) 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 hypertension Assessment/Plan: Hx COPD; severe RV failure. White-out of left lung. F/u Is and Os. Intubated. F/u with mortgage loan computation clerk. Code(s): I27.2 - OTHER SECONDARY PULMONARY HYPERTENSION (8) Anemia Code(s): D64.9 - ANEMIA, UNSPECIFIED CC time 36 min
--- NOTE | 2017-03-23 16:05 | PN ---
Physical Exam: SUBJECTIVE: atient seen and examined at bedside. No overnight events. Continues to be intubated and sedated. Clinical deterioration. OBJECTIVE: Vital Signs Period Temp Pulse Resp BP Sys/Krishnan Pulse Ox Last 24 Hr 97.8 F-98.7 F 63-97 22-26 80-108/40-62 93-97 GENERAL: intubated and sedated HEAD: Normal with no signs of trauma. EYES: pupils reactive to light ENT: ET tube in place NECK: supple. LUNGS: Breath sounds equal, clear to auscultation bilaterally, diminished bibasilar breath sounds. HEART: RRR, S1, S2 without murmur, rub or gallop. ABDOMEN: Obese, hypoactive BS, edema of abdominal wall. EXTREMITIES: 3+ pittiing edema up to abdomen. Chronic changes of lower ext. NEUROLOGICAL: Sedated but opens eyes on command. SKIN: Warm, dry, thickened skin on bilat. LE Laboratory Results - last 24 hr 03/22/17 03/22/17 03/23/17 18:25 21:51 05:35 WBC 8.2 RBC 3.87 L Hgb 10.1 L Hct 32.0 L MCV 82.9 MCHC 31.7 L RDW 19.8 H Plt Count 171 D MPV 9.0 INR PTT (Actin FS) 59.6 H D Puncture Site ABG pH ABG pCO2 at Pt Temp ABG pO2 at Pt Temp ABG HCO3 ABG O2 Sat (Measured) ABG O2 Content ABG Base Excess Brian Test O2 Delivery Device Oxygen Flow Rate Vent Mode Vent Rate Mechanical Rate PEEP Pressure Support Vent Sodium Potassium Chloride Carbon Dioxide Anion Gap BUN Creatinine POC Glucometer 138.05009 Random Glucose Calcium Phosphorus Magnesium Random Vancomycin 03/23/17 03/23/17 03/23/17 05:35 05:35 05:35 WBC RBC Hgb Hct MCV MCHC RDW Plt Count MPV INR 1.53 H PTT (Actin FS) 58.5 H Puncture Site ABG pH ABG pCO2 at Pt Temp ABG pO2 at Pt Temp ABG HCO3 ABG O2 Sat (Measured) ABG O2 Content ABG Base Excess Brian Test O2 Delivery Device Oxygen Flow Rate Vent Mode Vent Rate Mechanical Rate PEEP Pressure Support Vent Sodium 135 L Potassium 4.5 Chloride 97 L Carbon Dioxide 26 Anion Gap 12 BUN 101 H Creatinine 3.2 H POC Glucometer Random Glucose 216 H D Calcium 7.5 L Phosphorus 5.9 H D Magnesium 2.8 H Random Vancomycin 03/23/17 03/23/17 06:00 07:25 WBC RBC Hgb Hct MCV MCHC RDW Plt Count MPV INR PTT (Actin FS) Puncture Site Right radial ABG pH 7.36 ABG pCO2 at Pt Temp 43.7 ABG pO2 at Pt Temp 93.5 D ABG HCO3 24.3 ABG O2 Sat (Measured) 97.5 ABG O2 Content 17.3 ABG Base Excess -0.7 Brian Test Positive O2 Delivery Device Mec.vent Oxygen Flow Rate 50% Vent Mode A/c Vent Rate 24 Mechanical Rate Esprit PEEP 8.0 Pressure Support Vent 380 Sodium Potassium Chloride Carbon Dioxide Anion Gap BUN Creatinine POC Glucometer Random Glucose Calcium Phosphorus Magnesium Random Vancomycin 10.299 Active Medications Generic Name Dose Route Start Last Admin Trade Name Freq PRN Reason Stop Dose Admin Albuterol/Ipratropium 1 amp 03/19/17 15:05 Duoneb - NEB Q6H PRN SHORTNESS OF BREATH Amiodarone HCl 400 mg 03/19/17 19:00 03/23/17 09:12 Cordarone - PO 03/25/17 22:01 400 mg BID SARAH Administration Amiodarone HCl 400 mg 03/26/17 10:00 Cordarone - PO DAILY SARAH Atorvastatin Calcium 80 mg 03/18/17 09:45 03/22/17 21:32 Lipitor - NGT 80 mg HS SARAH Administration Chlorhexidine Gluconate 1 applic 03/17/17 22:00 03/22/17 21:32 Hibiclens For Decolonization - TP 1 applic HS SARAH Administration Chlorhexidine Gluconate 15 ml 03/18/17 22:15 03/23/17 09:12 Peridex - MM 15 ml BID SARAH Administration Heparin Sodium (Porcine) 1,000 unit 03/22/17 08:38 Heparin - IVPUSH PRN PRN Heparin Heparin Sodium (Porcine) 5,000 unit 03/22/17 08:38 Heparin - IVPUSH PRN PRN Heparin Hydrocortisone Sodium Succinate 100 mg 03/23/17 18:00 Solu-Cortef - IVPB Q8H-IV SARAH Furosemide 100 mg/ Dextrose 100 mls @ 10 mls/hr 03/21/17 13:45 03/22/17 13:46 IVPB 10 mls/hr TITR SARAH Administration 10 MG/HR Norepinephrine Bitartrate 8, 500 mls @ 18.75 mls/hr 03/22/17 08:45 03/23/17 09: 09 000 mcg/ Dextrose IV 93.75 mls/hr TITR SARAH Administration Protocol 5 MCG/MIN Heparin Sodium (Porcine) 25, 500 mls @ 20 mls/hr 03/22/17 08:45 03/23/17 09:10 000 unit/ Sodium Chloride IV 20 mls/hr TITR SARAH Administration Protocol 1,000 UNIT/HR Dopamine HCl/Dextrose 250 mls @ 27.375 mls/hr 03/23/17 12:00 03/23/17 12:05 Dopamine 400 Mg/D5w - IVPB 27.375 mls/hr TITR SARAH Administration Protocol 5 MCG/KG/MIN Propofol 100 mls @ 4.38 mls/hr 03/23/17 12:00 03/23/17 12:11 Diprivan - IVPB 20 mcg/kg/min TITR SARAH Titration Protocol 5 MCG/KG/MIN Pantoprazole Sodium 40 mg 03/18/17 10:00 03/23/17 09:13 Protonix 40mg Ivpb (Pre-Docked) IVPB 40 mg DAILY SARAH Administration Piperacillin Sod/Tazobactam Sod 3.375 gm 03/22/17 10:00 Zosyn 3.375gm Ivpb (Pre-Docked) IVPB Q8H-IV SARAH Protocol ASSESSMENT/PLAN: 76 y/o M with signifcant PMHx of CHF, HTN, Afib, and pulmonary HTN admitted from [facility] s/p cardiac arrest 2/2 vfib admitted to ICU. Problem List - Problems (1) Cardiac arrest Assessment/Plan: * Clinical deterioration * Has required increase pressure support. * Now requiring :Norepinephrine 25 mcg/hr and Vasopressing @ 2.4mcg/hr * weaning trial unsuccessful -->will continue to duirese * Continue Amiodarone 400mg PO BID for one week then 400mg PO daily * Continue ICU monitoring. * very poor prognosis * may require tracheostomy if not able to wean off vent. (2) Acute on chronic diastolic CHF (congestive heart failure) Assessment/Plan: * Lasix drip of 10mg/hr * monitor I/O's * daily weights. (3) Supratherapeutic INR Assessment/Plan: * resolved * Heparin drip for AC. (4) A-fib Assessment/Plan: * Currently paced * will hold off on AV blockage due to hypotension * Digoxin held due to renal function. (5) CKD (chronic kidney disease) Assessment/Plan: * Stage 4 GFR 23 * worsening Cr however will need to continue Lasix. * Nephrology consulted Dr. Henry will continue Lasix drip * May need dialysis but question is futility of aggressive treatment given poor prognosis. (6) DVT prophylaxis Assessment/Plan: * Heparin GGT Visit type - Emergency Visit Emergency Visit: Yes ED Registration Date: 03/17/17 Care time: The patient presented to the Emergency Department on the above date and was hospitalized for further evaluation of their emergent condition. - New Patient This patient is new to me today: No - Critical Care Critical Care patient: Yes Total Critical Care Time (in minutes): 45 Critical Care Statement: The care of this patient involved high complexity decision making to prevent further life threatening deterioration of the patient 's condition and/or to evalute & treat vital organ system(s) failure or risk of failure.
--- NOTE | 2017-03-23 17:33 | PN ---
Progress Note (short form) - Note Progress Note: ID consult dictated imp/reccd chart reviewed 76 year old man admitted from [facility] with cardiac arrest 5/2 sedated on ventilator on pressors history of cardiomyopathy noted to have purulent sputum cxray with cardiomegaly and infiltrates/congestion plan to treat for VAP with vancomycin based on levels and zosyn willl adjust antibiotics after cultures results are back d/w director athletic Problem List - Problems (1) Cardiac arrest Code(s): I46.9 - CARDIAC ARREST, CAUSE UNSPECIFIED (2) Pneumonia Code(s): J18.9 - PNEUMONIA, UNSPECIFIED ORGANISM (3) CKD (chronic kidney disease) Code(s): N18.9 - CHRONIC KIDNEY DISEASE, UNSPECIFIED Qualifiers: Chronic kidney disease stage: stage 4 (severe) Qualified Code(s): N18.4 - Chronic kidney disease, stage 4 (severe) (4) Cardiomyopathy Code(s): I42.9 - CARDIOMYOPATHY, UNSPECIFIED
[2017-03-23] MEDS ORDERED: VANCOMYCIN 1 GRAM (PRE-DOCKED) 1,000 MG/250 ML BAG IVPB ONE (17:45)
--- NOTE | 2017-03-23 18:17 | PN ---
Physical Exam: SUBJECTIVE: Patient seen and examined. Sedated on mech ventilation. OBJECTIVE: Vital Signs Period Temp Pulse Resp BP Sys/Krishnan Pulse Ox Last 24 Hr 97.8 F-98.7 F 63-97 22-26 80-122/40-80 93-97 GENERAL: The patient is sedated, on mech ventilation. HEAD: Normal with no signs of trauma. EYES: PERRL, sclera anicteric, conjunctiva clear. ENT: moist mucous membranes. NECK: Trachea midline, full range of motion, supple. LUNGS: Breath sounds equal, coarse breath sounds bilaterally, no crackles, no accessory muscle use. HEART: Regular rate and rhythm, S1, S2 without murmur, rub or gallop. ABDOMEN: Soft, nontender, nondistended, normoactive bowel sounds, no guarding, no rebound, no masses. EXTREMITIES: 2+ pulses, warm, 2+ edema in LE and abdomen. NEUROLOGICAL: No facial asymmetry, gait not observed, sedated. PSYCH: Normal mood, normal affect. SKIN: Warm, dry, normal turgor, no rashes or lesions noted Laboratory Results - last 24 hr 03/22/17 03/22/17 03/23/17 18:25 21:51 05:35 WBC 8.2 RBC 3.87 L Hgb 10.1 L Hct 32.0 L MCV 82.9 MCHC 31.7 L RDW 19.8 H Plt Count 171 D MPV 9.0 INR PTT (Actin FS) 59.6 H D Puncture Site ABG pH ABG pCO2 at Pt Temp ABG pO2 at Pt Temp ABG HCO3 ABG O2 Sat (Measured) ABG O2 Content ABG Base Excess Brian Test O2 Delivery Device Oxygen Flow Rate Vent Mode Vent Rate Mechanical Rate PEEP Pressure Support Vent Sodium Potassium Chloride Carbon Dioxide Anion Gap BUN Creatinine POC Glucometer 138.09402 Random Glucose Calcium Phosphorus Magnesium Random Vancomycin 03/23/17 03/23/17 03/23/17 05:35 05:35 05:35 WBC RBC Hgb Hct MCV MCHC RDW Plt Count MPV INR 1.53 H PTT (Actin FS) 58.5 H Puncture Site ABG pH ABG pCO2 at Pt Temp ABG pO2 at Pt Temp ABG HCO3 ABG O2 Sat (Measured) ABG O2 Content ABG Base Excess Brian Test O2 Delivery Device Oxygen Flow Rate Vent Mode Vent Rate Mechanical Rate PEEP Pressure Support Vent Sodium 135 L Potassium 4.5 Chloride 97 L Carbon Dioxide 26 Anion Gap 12 BUN 101 H Creatinine 3.2 H POC Glucometer Random Glucose 216 H D Calcium 7.5 L Phosphorus 5.9 H D Magnesium 2.8 H Random Vancomycin 03/23/17 03/23/17 06:00 07:25 WBC RBC Hgb Hct MCV MCHC RDW Plt Count MPV INR PTT (Actin FS) Puncture Site Right radial ABG pH 7.36 ABG pCO2 at Pt Temp 43.7 ABG pO2 at Pt Temp 93.5 D ABG HCO3 24.3 ABG O2 Sat (Measured) 97.5 ABG O2 Content 17.3 ABG Base Excess -0.7 Brian Test Positive O2 Delivery Device Mec.vent Oxygen Flow Rate 50% Vent Mode A/c Vent Rate 24 Mechanical Rate Esprit PEEP 8.0 Pressure Support Vent 380 Sodium Potassium Chloride Carbon Dioxide Anion Gap BUN Creatinine POC Glucometer Random Glucose Calcium Phosphorus Magnesium Random Vancomycin 10.299 Active Medications Generic Name Dose Route Start Last Admin Trade Name Freq PRN Reason Stop Dose Admin Albuterol/Ipratropium 1 amp 03/19/17 15:05 Duoneb - NEB Q6H PRN SHORTNESS OF BREATH Amiodarone HCl 400 mg 03/19/17 19:00 03/23/17 09:12 Cordarone - PO 03/25/17 22:01 400 mg BID SARAH Administration Amiodarone HCl 400 mg 03/26/17 10:00 Cordarone - PO DAILY SARAH Atorvastatin Calcium 80 mg 03/18/17 09:45 03/22/17 21:32 Lipitor - NGT 80 mg HS SARAH Administration Chlorhexidine Gluconate 1 applic 03/17/17 22:00 03/22/17 21:32 Hibiclens For Decolonization - TP 1 applic HS SARAH Administration Chlorhexidine Gluconate 15 ml 03/18/17 22:15 03/23/17 09:12 Peridex - MM 15 ml BID SARAH Administration Heparin Sodium (Porcine) 1,000 unit 03/22/17 08:38 Heparin - IVPUSH PRN PRN Heparin Heparin Sodium (Porcine) 5,000 unit 03/22/17 08:38 Heparin - IVPUSH PRN PRN Heparin Hydrocortisone Sodium Succinate 100 mg 03/23/17 18:00 03/23/17 17:09 Solu-Cortef - IVPB 100 mg Q8H-IV SARAH Administration Furosemide 100 mg/ Dextrose 100 mls @ 10 mls/hr 03/21/17 13:45 03/23/17 13:35 IVPB 15 mls/hr TITR SARAH Administration 10 MG/HR Norepinephrine Bitartrate 8, 500 mls @ 18.75 mls/hr 03/22/17 08:45 03/23/17 09: 09 000 mcg/ Dextrose IV 93.75 mls/hr TITR SARAH Administration Protocol 5 MCG/MIN Heparin Sodium (Porcine) 25, 500 mls @ 20 mls/hr 03/22/17 08:45 03/23/17 09:10 000 unit/ Sodium Chloride IV 20 mls/hr TITR SARAH Administration Protocol 1,000 UNIT/HR Dopamine HCl/Dextrose 250 mls @ 27.375 mls/hr 03/23/17 12:00 03/23/17 12:05 Dopamine 400 Mg/D5w - IVPB 27.375 mls/hr TITR SARAH Administration Protocol 5 MCG/KG/MIN Propofol 100 mls @ 4.38 mls/hr 03/23/17 12:00 03/23/17 12:11 Diprivan - IVPB 20 mcg/kg/min TITR SARAH Titration Protocol 5 MCG/KG/MIN Pantoprazole Sodium 40 mg 03/18/17 10:00 03/23/17 09:13 Protonix 40mg Ivpb (Pre-Docked) IVPB 40 mg DAILY SARAH Administration Piperacillin Sod/Tazobactam Sod 3.375 gm 03/22/17 10:00 Zosyn 3.375gm Ivpb (Pre-Docked) IVPB Q8H-IV SARAH Protocol Microbiology 03/22/17 11:15 Sputum - Endotrachea Suction/Ventilator Gram Stain - Final 03/22/17 11:15 Sputum - Endotrachea Suction/Ventilator Sputum Culture - Preliminary Presumptive Mrsa (Pbp2a Pos) 03/17/17 14:59 Blood - Peripheral Venous Blood Culture - Final NO GROWTH AFTER 5 DAYS INCUBATION 03/17/17 14:55 Blood - Peripheral Venous Blood Culture - Final NO GROWTH AFTER 5 DAYS INCUBATION Echocardiogram showing right ventricular dysfunction and severe tricuspid regurgitation. ASSESSMENT/PLAN: 76 year old male w/ a significant PMH of diastolic CHF,biventricular pacemaker, COPD, HTN, HLD, Atrial Fibrillation, renal insufficiency, Morbid obesity, Prostate CA, Sleep apnea on O2, generalized weakness (wheelchair-bound), Glaucoma BIBA from [facility] s/p Cardiac arrest due to V.Fib. Neuro: -on CPAP -sedated CVS: Cardiac arrest: pacemaker interrogation showed Vfib, dc vasopressin, Fentanyl and Midazolam restarted Dopamine continue ventilatory support f/u ABG tomorrow now on PO amiodarone 60mg IV furosemide responded will given another dose if vitals stable Restrict fluids. HTN: hold antihypertensives for now as patient is on dopamine Non ischemic CAD/Non ischemic cardiomyopathy: cont Lipitor Afib: INR supratherapeutic hold coumadin for now Digoxin if HR increases Digoxin level within range HLD: lipitor 80mg HS send lipid panel with morning labs ID: -MRSA sputum -will give Vancomycin one dose today and check Vanco level tomorrow in [place] -blood cultures ordered Pulm: COPD: on home oxygen PRN, minimal activity, able to walk 10 steps from chary to bed, uses wheel chair device at home. continue ventilatory support for now broncho dilators Obstructive Sleep Apnea: on vent for now Renal: CKD stage 3: at baseline renally dose all medications monitor Cr Endo: Hyperglycemia: A1C 6.4 Insulin sliding scale FEN: keep net negative fluid balance. Ncr Operator consulted for tube feeds, will continue Glucerna. tube feeds PPx: INR supratherapeutic, Protonix Dispo: continue ICU monitor. Discussed with , full code. Problem List - Problems (1) A-fib Code(s): I48.91 - UNSPECIFIED ATRIAL FIBRILLATION Qualifiers: Atrial fibrillation type: unspecified Qualified Code(s): I48.91 - Unspecified atrial fibrillation (2) Acute on chronic diastolic CHF (congestive heart failure) Code(s): I50.33 - ACUTE ON CHRONIC DIASTOLIC (CONGESTIVE) HEART FAILURE (3) Anemia Code(s): D64.9 - ANEMIA, UNSPECIFIED (4) CKD (chronic kidney disease) Code(s): N18.9 - CHRONIC KIDNEY DISEASE, UNSPECIFIED Qualifiers: Chronic kidney disease stage: stage 4 (severe) Qualified Code(s): N18.4 - Chronic kidney disease, stage 4 (severe) (5) Cardiac arrest Code(s): I46.9 - CARDIAC ARREST, CAUSE UNSPECIFIED (6) DVT prophylaxis Code(s): [id number] - (7) HTN (hypertension) Code(s): I10 - ESSENTIAL (PRIMARY) HYPERTENSION (8) Hyperkalemia Code(s): E87.5 - HYPERKALEMIA (9) Hyperlipidemia Code(s): E78.5 - HYPERLIPIDEMIA, UNSPECIFIED (10) 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 hypertension Code(s): I27.2 - OTHER SECONDARY PULMONARY HYPERTENSION (11) Sleep apnea Code(s): G47.30 - SLEEP APNEA, UNSPECIFIED Visit type - Emergency Visit Emergency Visit: Yes ED Registration Date: 03/17/17 Care time: The patient presented to the Emergency Department on the above date and was hospitalized for further evaluation of their emergent condition. - New Patient This patient is new to me today: No - Critical Care Critical Care patient: Yes Total Critical Care Time (in minutes): 45 Critical Care Statement: The care of this patient involved high complexity decision making to prevent further life threatening deterioration of the patient 's condition and/or to evalute & treat vital organ system(s) failure or risk of failure.
--- NOTE | 2017-03-23 19:24 | CONS ---
DATE OF CONSULTATION: DATE OF DICTATION: 03/23/2017 INFECTIOUS DISEASE CONSULTATION REQUESTING PHYSICIAN: ICU Service CONSULTING PHYSICIAN: Sky Nuñez M.D. HISTORY OF PRESENT ILLNESS: This is a 76-year-old man history of heart failure , he has a history of biventricular pacemaker, hypertension, hyperlipidemia, cardiomyopathy. He was admitted from [facility] status post cardiac arrest on March 17. He was apparently at physical therapy when he became unresponsive and he was transferred to the hospital. He was intubated in the emergency room and started on hypothermia protocol. At baseline, he is wheelchair bound. I am asked to see him because he has been having increasing secretions, the question of pneumonia has been raised. He is on multiple pressors and the question of hospital-acquired pneumonia has been raised. He apparently is having productive sputum that is purulent in nature. The reports for the last 10 years he has had intermittent hospitalizations and SNF admissions related to his heart and his congestive heart failure. PAST MEDICAL HISTORY: Notable for biventricular pacemaker, hypertension, hyperlipidemia, atrial fibrillation, morbid obesity, prostate cancer, sleep apnea, glaucoma. He has a history of COPD. He has a history of heart failure and he has a pacemaker which he has had for the last 8 or 9 years per his . 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 He has no known drug allergies. His medications at the time of admission included allopurinol, digoxin, Colace, ferrous sulfate, Lasix, Xalatan eyedrops, Zaroxolyn, Miralax, senna, Zocor, triamcinolone cream, warfarin. FAMILY HISTORY: Not available. SOCIAL HISTORY: He is . He is living with his . There is smoking history. He was not a smoker or substance user. REVIEW OF SYSTEMS: Not available except for the purulent sputum. There is no diarrhea. The patient is sedated and intubated on the ventilator. CURRENT MEDICATIONS: Include norepinephrine, Solu-Cortef, amiodarone, IV heparin, dopamine, Diprivan, Lipitor, furosemide, and Protonix . PHYSICAL EXAMINATION: General: He is sedated and intubated. Vital signs: Temperature 98 rectally, he has had no fever. His blood pressure is 122/80, heart rate 91, respiratory rate 25. He is on FiO2 of 50%. HEENT: Normocephalic. He is orally intubated. Lungs: Diminished breath sounds at the bases. Heart: Regular rate and rhythm. He has permanent pacemaker in his left chest wall. He has edema of his arms and legs and abdomen. Abdomen: Soft. Extremities: Notable for venous stasis bilaterally. He has a central line in place. LABORATORY: White count 8.2, hemoglobin 10.1, platelets 171, INR is 1.3. BUN and creatinine are 101 and 3.2. Urinalysis is negative. He received vancomycin yesterday. Vancomycin level is 10.2. Blood cultures were done on admission and are negative. His sputum culture is growing presumptive MRSA with normal sharee and many polycytes on the Gram stain and many gram-positive cocci in question. Chest x-ray reveals cardiomegaly and congestion. Difficult to rule out an infiltrate. IMPRESSION: In summary, this is an unfortunate 76-year-old man with congestive heart failure, biventricular heart failure, who now has status post arrest with worsening infiltrates on x-ray and who remains pressor dependent. Cultures of his sputum have been sent which are growing methicillin resistant Staphylococcus aureus. Would continue vancomycin based on levels given if worsening kidney function. Would re-dose him now and check a level in the morning. Would continue Zosyn as well until the final culture results are obtained. If there is no gram negative isolated, it would be reasonable to treat him with vancomycin alone. Patient was discussed with the tunnel elastic operator chainstitch. Further recommendations to follow based on his clinical course. I spoke to his at the bedside as well, and the ICU resident. SKY NUÑEZ M.D. [id number] MTDD
[2017-03-23] MEDS: PIPERACILLIN/TAZOB 3.375 GM/50 ML PRE-DOCKED IVPB SCH (20:00)
[2017-03-23] MEDS: CHLORHEXIDINE GLUCONATE 4% CLEANSER FOR DECOLONIZATION TP SCH (21:32)
[2017-03-23] MEDS: ATORVASTATIN CA 80 MG TABLET (FP) NGT SCH (21:32)
[2017-03-24] MEDS: HYDROCORTISONE SOD SUCCINATE 100 MG/2 ML VIAL IVPB SCH ×3 (02:00→17:48)
[2017-03-24] MEDS: PIPERACILLIN/TAZOB 3.375 GM/50 ML PRE-DOCKED IVPB SCH (03:00)
[2017-03-24 06:14] LABS: BASOPHIL 0.1 % (0-2.0); MCH 25.9 pg (25.7-33.7); MCHC 31.4 g/dl (32.0-35.9); MEAN CELL VOLUME 82.4 fl (80-96); MEAN PLT VOLUME 8.7 fl (7.5-11.1); NEUTROPHILS 89.3 % (42.8-82.8); PLATELET COUNT 213 K/MM3 (134-434); RDW 19.6 % (11.9-15.9); WHITE BLOOD COUNT 8.5 K/mm3 (4.0-10.0)
[2017-03-24 06:33] LABS: ALBUMIN 2.2 g/dl (3.4-5.0); BILIRUBIN,TOTAL 0.7 mg/dL (0.2-1.0); CALCIUM 7.4 mg/dL (8.5-10.1); CREATININE 3.3 mg/dL (0.7-1.3)
[2017-03-24] MEDS: INSULIN SLIDING SCALE (NOVOLOG) 1 VIAL SQ SCH ×4 (06:57→23:05)
[2017-03-24] MEDS ORDERED: INSULIN SLIDING SCALE (NOVOLOG) 1 VIAL SQ SCH (07:00)
[2017-03-24 07:29] LABS: ARTERIAL BLOOD GAS BASE EXCESS -0.7 meq/l (-2-2); ARTERIAL BLOOD GAS HCO3 23.9 meq/L (22-26); ARTERIAL BLOOD GAS pH 7.37 (7.35-7.45)
[2017-03-24 07:31] LABS: ALLENS TEST POSITIVE; ART PUNCT SITE RIGHT RADIAL; LPM/O2% 50%; MECH. VENT. YES; PT. ON O2? YES; TYPE OF O2 MECHANICAL VENT; VT/PRESS 380ML
[2017-03-24 07:32] LABS: VENT RATE 24
[2017-03-24] MEDS ORDERED: FUROSEMIDE 100 MG/10 ML INJECTABLE VIAL ONE ×3 (07:46→23:14)
[2017-03-24] MEDS: HEPARIN - 25,000 UNIT in SODIUM CHLORIDE 495 ML IV SCH (08:00)
[2017-03-24] MEDS: HEPARIN NA (PORCINE) 5,000 UNITS/ML 1ML VIAL IVPUSH PRN ×2 (08:06→16:50)
--- NOTE | 2017-03-24 08:55 | PN ---
Teaching Attending Note Name of Resident: Cleve Bourgeois ATTENDING PHYSICIAN STATEMENT I saw and evaluated the patient. I reviewed the resident's note and discussed the case with the resident. I agree with the resident's findings and plan as documented. SUBJECTIVE: unable to obtain hx . no events over night . OBJECTIVE: Intubated , sedated, round pupils 3 mm in diameter, JVD seen , ET tube in , resists eye opening CV: RRR, no MRG Lungs ;rales at R base heard Abd : obese,NL BS today . abd wall edema on lower abdomen Ext : 3+ pitting edema on LE , R leg circumference > L. Chronic hyperpigmentation and skin thickening. ASSESSMENT AND PLAN: 76 y/o man with h/o Severe cardiomypathy( non ischemic ) ,with severely reduced EF, and PULm HTN, Diastolic dysfunction , A fib on AC, who presented with cardiac arrest (V fib ) from his group home 1- S/P cardiac arrest: due to severe R sided cardiomyopathy. - cont vaso and levo for BP support - cont Amio 400 mg BID x 1 week then 400 daily starting on 03/26 2- Severe non-ischemic cardiomypoathy, with acute on chronic systolic and diastolic heart failure still in positive fluid balance despite starting increasing lasix gtt to 15 mg/ hr - cont lasix gtt - will d/w cardiology starting milrinone 2- Acute hypoxic resp failure :due to CHF , ?PNA - cont zosyn and vanco ( sputum with MRSA ) - appreciate ID Recs - follow final sputum cx - cont Vent support 4- Coumadin coagulopathy: resolved 5- A fib: rate is controlled , - cont heparin gtt - monitor rate 5- CKD : Cr slightly increased . monitor with diuresis \renal consult appreciated DVT px :on AC
--- NOTE | 2017-03-24 09:01 | PN ---
Progress Note (short form) - Note Progress Note: remains sedated and intubated opens eyes at bedside Vital Signs Period Temp Pulse Resp BP Sys/Krishnan Pulse Ox Last 24 Hr 97.7 F-98.5 F 66-97 22-26 98-145/52-80 97-97 cor-rrr left CVP lungs decreased bs at bases abd soft,nt ext +edema CBC, BMP 03/24/17 05:30 03/24/17 05:30 cxray unchanged Laboratory Tests 03/24/17 05:30 Random Vancomycin 16.898 Microbiology 03/22/17 11:15 Sputum - Endotrachea Suction/Ventilator Gram Stain - Final 03/22/17 11:15 Sputum - Endotrachea Suction/Ventilator Sputum Culture - Preliminary Presumptive Mrsa (Pbp2a Pos) 03/17/17 14:59 Blood - Peripheral Venous Blood Culture - Final NO GROWTH AFTER 5 DAYS INCUBATION 03/17/17 14:55 Blood - Peripheral Venous Blood Culture - Final NO GROWTH AFTER 5 DAYS INCUBATION a/p s/p code plan to treat for VAP with vancomycin based on levels called micro- pure culture MRSA, will d/c zosyn redose vancomycin 1 gram at noon, vancomycin trough in am cardiomyopathy/PPM d/w icu resident Problem List - Problems (1) Cardiac arrest Code(s): I46.9 - CARDIAC ARREST, CAUSE UNSPECIFIED (2) Pneumonia Code(s): J18.9 - PNEUMONIA, UNSPECIFIED ORGANISM (3) CKD (chronic kidney disease) Code(s): N18.9 - CHRONIC KIDNEY DISEASE, UNSPECIFIED Qualifiers: Chronic kidney disease stage: stage 4 (severe) Qualified Code(s): N18.4 - Chronic kidney disease, stage 4 (severe) (4) Cardiomyopathy Code(s): I42.9 - CARDIOMYOPATHY, UNSPECIFIED
[2017-03-24] MEDS ORDERED: VANCOMYCIN 1 GRAM (PRE-DOCKED) 1,000 MG/250 ML BAG IVPB ONE (10:00)
[2017-03-24] MEDS: CHLORHEXIDINE GLUCONATE 0.12% 15ML CUP MM SCH ×2 (10:07→23:06)
[2017-03-24] MEDS: PANTOPRAZOLE SODIUM 40 MG/100 ML PRE-DOCKED IVPB SCH (10:07)
[2017-03-24] MEDS: AMIODARONE HCL 200 MG TABLET (FP) PO SCH ×2 (10:07→22:00)
[2017-03-24] MEDS: NOREPINEPHRINE BITARTRATE 8,000 MCG in DEXTROSE 5%-WATER - 492 ML IV SCH (10:08)
[2017-03-24] MEDS ORDERED: NOREPINEPHRINE BITARTRATE 4 MG/4 ML ML IV ONE ×2 (10:26→23:14)
--- NOTE | 2017-03-24 10:37 | PN ---
Progress Note (short form) - Note Progress Note: Renal Follow up for SUJATA/Fluid overload Pt seen and examined in the ICU sedated on Vent, 50% FiO2 ON Dopamine and Levo Ridley in place with yellow urine at the bedside Vital Signs Temperature 97.7 F 03/24/17 06:00 Pulse Rate 89 03/24/17 10:17 Respiratory Rate 28 H 03/24/17 09:40 Blood Pressure 130/80 03/24/17 08:00 O2 Sat by Pulse Oximetry (%) 96 03/24/17 10:17 Intake & Output 03/21/17 03/22/17 03/23/17 03/24/17 23:59 23:59 23:59 23:59 Intake Total 2608.4 3293.7 5697.6 2410 Output Total 2200 775 1500 1000 Balance 408.4 2518.7 4197.6 1410 Weight 315 lb 1 oz 313 lb 4.8 oz 321 lb 13.998 oz 325 lb 6.4 oz Gen: on Vent, sedated CVS: RRR, No M/R Lungs: DEC BS throughout the lung ortiz, no rales Abd: soft, Obese, ND Ext: 2+ edema in LE, no cyanosis, warm ext : Ridley in place CBC, BMP 03/24/17 05:30 03/24/17 05:30 Laboratory Tests 03/24/17 05:30 Creat Clearance w eGFR 18.22 Calcium 7.4 L Albumin 2.2 L Current Medications Albuterol/Ipratropium (Duoneb -) 1 amp NEB Q6H PRN PRN Reason: SHORTNESS OF BREATH Amiodarone HCl (Cordarone -) 400 mg PO BID [facility] Stop: 03/25/17 22:01 Last Admin: 03/24/17 10:07 Dose: 400 mg Amiodarone HCl (Cordarone -) 400 mg PO DAILY [facility] Atorvastatin Calcium (Lipitor -) 80 mg NGT HS [facility] Last Admin: 03/23/17 21:32 Dose: 80 mg Chlorhexidine Gluconate (Hibiclens For Decolonization -) 1 applic TP HS [facility] Last Admin: 03/23/17 21:32 Dose: 1 applic Chlorhexidine Gluconate (Peridex -) 15 ml MM BID [facility] Last Admin: 03/24/17 10:07 Dose: 15 ml Heparin Sodium (Porcine) (Heparin -) 1,000 unit IVPUSH PRN PRN PRN Reason: Heparin Last Admin: 03/24/17 08:06 Dose: 1,000 unit Heparin Sodium (Porcine) (Heparin -) 5,000 unit IVPUSH PRN PRN PRN Reason: Heparin Hydrocortisone Sodium Succinate (Solu-Cortef -) 100 mg IVPB Q8H-IV SARAH Last Admin: 03/24/17 10:07 Dose: 100 mg Furosemide 100 mg/ Dextrose 100 mls @ 10 mls/hr IVPB TITR SARAH PRN Reason: 10 MG/HR Last Admin: 03/23/17 13:35 Dose: 15 mls/hr Norepinephrine Bitartrate 8, (000 mcg/ Dextrose) 500 mls @ 18.75 mls/hr IV TITR SARAH; 5 MCG/MIN PRN Reason: Protocol Last Admin: 03/24/17 10:08 Dose: 56.25 mls/hr Heparin Sodium (Porcine) 25, (000 unit/ Sodium Chloride) 500 mls @ 20 mls/hr IV TITR SARAH; 1,000 UNIT/HR PRN Reason: Protocol Last Admin: 03/23/17 09:10 Dose: 20 mls/hr Dopamine HCl/Dextrose (Dopamine 400 Mg/D5w -) 250 mls @ 27.375 mls/hr IVPB TITR SARAH; 5 MCG/KG/MIN PRN Reason: Protocol Last Admin: 03/23/17 12:05 Dose: 27.375 mls/hr Propofol (Diprivan -) 100 mls @ 4.38 mls/hr IVPB TITR SARAH; 5 MCG/KG/MIN PRN Reason: Protocol Last Titration: 03/23/17 12:11 Dose: 20 mcg/kg/min Insulin Aspart (Novolog Vial Sliding Scale -) 1 vial SQ ACHS SARAH PRN Reason: Protocol Last Admin: 03/24/17 06:57 Dose: 10 units Pantoprazole Sodium (Protonix 40mg Ivpb (Pre-Docked)) 40 mg IVPB DAILY [facility] Last Admin: 03/24/17 10:07 Dose: 40 mg A/P 76 year old Gentleman with PMhx of CKD, CHF, Hypertension, Afib, Obesity, Prostate Ca who presented s/p cardiac arrest with SUJTAA and Volume overload #Non-Oliguric Acute on Chronic renal insufficiency with volume overload Renal function slightly worse then presentation High BUN multifactorial in nature (steroids and renal failure) pt with decent urine output but remains grossly positive continue Lasix gtt Give Metolazone 5mg PO today Trend BUN/Cr, urine output and weights no acute indication for dialysis at this time but if he were to warrent it would be consenting Keep MAP> 65 Dose all meds for Cr Cl less then 10 #Hyponatremia from fluid overload continue diuretics no indication for 3% saline no indication for Tolvaptan at this time #Shock/Resp Failure management as per ICU Thank you Garry Drew DO
[2017-03-24] MEDS ORDERED: METOLAZONE 5 MG TABLET PO ONE (11:15)
[2017-03-24] MEDS: PROPOFOL 100 ML IVPB SCH (12:26)
--- NOTE | 2017-03-24 14:24 | PN ---
Teaching Attending Note Name of Resident: Fani Allison ATTENDING PHYSICIAN STATEMENT I saw and evaluated the patient. I reviewed the resident's note and discussed the case with the resident. I agree with the resident's findings and plan as documented. SUBJECTIVE: Patient seen and examined in the ICU. Remains on pressor support (NE 10 and Dopamine 5). AC mode of vent 50% FiO2. Lasix drip at 15mg/hr. Intake & Output 03/21/17 03/22/17 03/23/17 03/24/17 23:59 23:59 23:59 23:59 Intake Total 2608.4 3293.7 5697.6 2410 Output Total 2200 775 1500 1000 Balance 408.4 2518.7 4197.6 1410 Weight 315 lb 1 oz 313 lb 4.8 oz 321 lb 13.998 oz 325 lb 6.4 oz Last Vital Signs Temp Pulse Resp BP Pulse Ox 98 F 88 27 H 111/56 96 03/24/17 10:00 03/24/17 12:00 03/24/17 13:41 03/24/17 12:00 03/24/17 10:17 Active Medications Albuterol/Ipratropium (Duoneb -) 1 amp NEB Q6H PRN PRN Reason: SHORTNESS OF BREATH Amiodarone HCl (Cordarone -) 400 mg PO BID [facility] Stop: 03/25/17 22:01 Last Admin: 03/24/17 10:07 Dose: 400 mg Amiodarone HCl (Cordarone -) 400 mg PO DAILY [facility] Atorvastatin Calcium (Lipitor -) 80 mg NGT HS [facility] Last Admin: 03/23/17 21:32 Dose: 80 mg Chlorhexidine Gluconate (Hibiclens For Decolonization -) 1 applic TP HS [facility] Last Admin: 03/23/17 21:32 Dose: 1 applic Chlorhexidine Gluconate (Peridex -) 15 ml MM BID [facility] Last Admin: 03/24/17 10:07 Dose: 15 ml Heparin Sodium (Porcine) (Heparin -) 1,000 unit IVPUSH PRN PRN PRN Reason: Heparin Last Admin: 03/24/17 08:06 Dose: 1,000 unit Heparin Sodium (Porcine) (Heparin -) 5,000 unit IVPUSH PRN PRN PRN Reason: Heparin Hydrocortisone Sodium Succinate (Solu-Cortef -) 100 mg IVPB Q8H-IV SARAH Last Admin: 03/24/17 10:07 Dose: 100 mg Furosemide 100 mg/ Dextrose 100 mls @ 10 mls/hr IVPB TITR SARAH PRN Reason: 10 MG/HR Last Admin: 03/23/17 13:35 Dose: 15 mls/hr Norepinephrine Bitartrate 8, (000 mcg/ Dextrose) 500 mls @ 18.75 mls/hr IV TITR SARAH; 5 MCG/MIN PRN Reason: Protocol Last Admin: 03/24/17 10:08 Dose: 56.25 mls/hr Heparin Sodium (Porcine) 25, (000 unit/ Sodium Chloride) 500 mls @ 20 mls/hr IV TITR SARAH; 1,000 UNIT/HR PRN Reason: Protocol Last Admin: 03/24/17 08:00 Dose: 22 mls/hr Dopamine HCl/Dextrose (Dopamine 400 Mg/D5w -) 250 mls @ 27.375 mls/hr IVPB TITR SARAH; 5 MCG/KG/MIN PRN Reason: Protocol Last Admin: 03/23/17 12:05 Dose: 27.375 mls/hr Propofol (Diprivan -) 100 mls @ 4.38 mls/hr IVPB TITR SARAH; 5 MCG/KG/MIN PRN Reason: Protocol Last Admin: 03/24/17 12:26 Dose: 12 mls/hr Insulin Aspart (Novolog Vial Sliding Scale -) 1 vial SQ ACHS SARAH PRN Reason: Protocol Last Admin: 03/24/17 12:24 Dose: 10 units Pantoprazole Sodium (Protonix 40mg Ivpb (Pre-Docked)) 40 mg IVPB DAILY [facility] Last Admin: 03/24/17 10:07 Dose: 40 mg Exam: Sedated and intubated HEENT: PERRL, TLC Pulm: bibasilar coarse rhonchi CV: RRR Abd: obese, (+) BS Ext: +4 LE edema Neuro: non-focal Laboratory Results - last 24 hr 03/24/17 03/24/17 03/24/17 05:30 05:30 05:30 WBC 8.5 RBC 4.03 Hgb 10.4 L Hct 33.2 L MCV 82.4 MCHC 31.4 L RDW 19.6 H Plt Count 213 D MPV 8.7 Neutrophils % 89.3 H Lymphocytes % 3.7 L D Monocytes % 6.9 Eosinophils % 0.0 D Basophils % 0.1 PTT (Actin FS) 45.9 H Puncture Site ABG pH ABG pCO2 at Pt Temp ABG pO2 at Pt Temp ABG HCO3 ABG O2 Sat (Measured) ABG O2 Content ABG Base Excess Brian Test O2 Delivery Device Oxygen Flow Rate Vent Mode Vent Rate Mechanical Rate PEEP Pressure Support Vent Sodium 133 L Potassium 4.3 Chloride 94 L Carbon Dioxide 23 Anion Gap 16 BUN 102 H Creatinine 3.3 H Creat Clearance w eGFR 18.22 Random Glucose 294 H D Calcium 7.4 L Total Bilirubin 0.7 AST 25 ALT 14 Alkaline Phosphatase 93 D Total Protein 6.0 L Albumin 2.2 L Random Vancomycin 16.898 03/24/17 07:15 WBC RBC Hgb Hct MCV MCHC RDW Plt Count MPV Neutrophils % Lymphocytes % Monocytes % Eosinophils % Basophils % PTT (Actin FS) Puncture Site Right radial ABG pH 7.37 ABG pCO2 at Pt Temp 42.2 ABG pO2 at Pt Temp 101.0 H ABG HCO3 23.9 ABG O2 Sat (Measured) 98.0 ABG O2 Content 14.7 L ABG Base Excess -0.7 Brian Test Positive O2 Delivery Device Mechanical vent Oxygen Flow Rate 50% Vent Mode A/c Vent Rate 24 Mechanical Rate Yes PEEP 8.0 Pressure Support Vent 380ml Sodium Potassium Chloride Carbon Dioxide Anion Gap BUN Creatinine Creat Clearance w eGFR Random Glucose Calcium Total Bilirubin AST ALT Alkaline Phosphatase Total Protein Albumin Random Vancomycin CXR: ETT and TLC in good position, L>R effusion, LLL retrocardiac consolidation ASSESSMENT AND PLAN: s/p Vfib Cardiac Arrest Acute on Chronic Hypoxic Respiratory Failure Acute on Chronic Diastolic Heart Failure Severe Pulmonary HTN s/p BiV PPM CAD +Troponins Atrial Fibrillation HTN CKD Hyperlipidemia DM COPD Morbid Obesity Obstructive Sleep Apnea - ABX per ID - Lasix drip 15mg/hr - Lighten sedation to assess mental status - AC - Lung protective ventilation - enteral feeds - DVT/GI prophylaxis - Given history of progressively worsening HF, overall prognosis is poor. Will likely need Trach later this week. Dr Gomez critical care time spent in reviewing chart, evaluating patient and formulating plan 40 min
--- NOTE | 2017-03-24 14:47 | PN ---
Physical Exam: SUBJECTIVE: P atient seen and examined at bedside. No overnight events. Continues to be intubated and sedated. Clinical deterioration. OBJECTIVE: Vital Signs Period Temp Pulse Resp BP Sys/Krishnan Pulse Ox Last 24 Hr 97.7 F-98.5 F 72-91 18-28 106-145/52-80 96-96 GENERAL: intubated and sedated HEAD: Normal with no signs of trauma. EYES: pupils reactive to light ENT: ET tube in place NECK: supple. LUNGS: Breath sounds equal, clear to auscultation bilaterally, diminished bibasilar breath sounds. HEART: RRR, S1, S2 without murmur, rub or gallop. ABDOMEN: Obese, hypoactive BS, edema of abdominal wall. EXTREMITIES: 3+ pittiing edema up to abdomen. Chronic changes of lower ext. NEUROLOGICAL: Sedated but opens eyes on command. SKIN: Warm, dry, thickened skin on bilat. LE Laboratory Results - last 24 hr 03/24/17 03/24/17 03/24/17 05:30 05:30 05:30 WBC 8.5 RBC 4.03 Hgb 10.4 L Hct 33.2 L MCV 82.4 MCHC 31.4 L RDW 19.6 H Plt Count 213 D MPV 8.7 Neutrophils % 89.3 H Lymphocytes % 3.7 L D Monocytes % 6.9 Eosinophils % 0.0 D Basophils % 0.1 PTT (Actin FS) 45.9 H Puncture Site ABG pH ABG pCO2 at Pt Temp ABG pO2 at Pt Temp ABG HCO3 ABG O2 Sat (Measured) ABG O2 Content ABG Base Excess Brian Test O2 Delivery Device Oxygen Flow Rate Vent Mode Vent Rate Mechanical Rate PEEP Pressure Support Vent Sodium 133 L Potassium 4.3 Chloride 94 L Carbon Dioxide 23 Anion Gap 16 BUN 102 H Creatinine 3.3 H Creat Clearance w eGFR 18.22 Random Glucose 294 H D Calcium 7.4 L Total Bilirubin 0.7 AST 25 ALT 14 Alkaline Phosphatase 93 D Total Protein 6.0 L Albumin 2.2 L Random Vancomycin 16.898 03/24/17 07:15 WBC RBC Hgb Hct MCV MCHC RDW Plt Count MPV Neutrophils % Lymphocytes % Monocytes % Eosinophils % Basophils % PTT (Actin FS) Puncture Site Right radial ABG pH 7.37 ABG pCO2 at Pt Temp 42.2 ABG pO2 at Pt Temp 101.0 H ABG HCO3 23.9 ABG O2 Sat (Measured) 98.0 ABG O2 Content 14.7 L ABG Base Excess -0.7 Brian Test Positive O2 Delivery Device Mechanical vent Oxygen Flow Rate 50% Vent Mode A/c Vent Rate 24 Mechanical Rate Yes PEEP 8.0 Pressure Support Vent 380ml Sodium Potassium Chloride Carbon Dioxide Anion Gap BUN Creatinine Creat Clearance w eGFR Random Glucose Calcium Total Bilirubin AST ALT Alkaline Phosphatase Total Protein Albumin Random Vancomycin Active Medications Generic Name Dose Route Start Last Admin Trade Name Freq PRN Reason Stop Dose Admin Albuterol/Ipratropium 1 amp 03/19/17 15:05 Duoneb - NEB Q6H PRN SHORTNESS OF BREATH Amiodarone HCl 400 mg 03/19/17 19:00 03/24/17 10:07 Cordarone - PO 03/25/17 22:01 400 mg BID SARAH Administration Amiodarone HCl 400 mg 03/26/17 10:00 Cordarone - PO DAILY SARAH Atorvastatin Calcium 80 mg 03/18/17 09:45 03/23/17 21:32 Lipitor - NGT 80 mg HS SARAH Administration Chlorhexidine Gluconate 1 applic 03/17/17 22:00 03/23/17 21:32 Hibiclens For Decolonization - TP 1 applic HS SARAH Administration Chlorhexidine Gluconate 15 ml 03/18/17 22:15 03/24/17 10:07 Peridex - MM 15 ml BID SARAH Administration Heparin Sodium (Porcine) 1,000 unit 03/22/17 08:38 03/24/17 08:06 Heparin - IVPUSH 1,000 unit PRN PRN Administration Heparin Heparin Sodium (Porcine) 5,000 unit 03/22/17 08:38 Heparin - IVPUSH PRN PRN Heparin Hydrocortisone Sodium Succinate 100 mg 03/23/17 18:00 03/24/17 10:07 Solu-Cortef - IVPB 100 mg Q8H-IV SARAH Administration Furosemide 100 mg/ Dextrose 100 mls @ 10 mls/hr 03/21/17 13:45 03/23/17 13:35 IVPB 15 mls/hr TITR SARAH Administration 10 MG/HR Norepinephrine Bitartrate 8, 500 mls @ 18.75 mls/hr 03/22/17 08:45 03/24/17 10: 08 000 mcg/ Dextrose IV 56.25 mls/hr TITR SARAH Administration Protocol 5 MCG/MIN Heparin Sodium (Porcine) 25, 500 mls @ 20 mls/hr 03/22/17 08:45 03/24/17 08:00 000 unit/ Sodium Chloride IV 22 mls/hr TITR SARAH Administration Protocol 1,000 UNIT/HR Dopamine HCl/Dextrose 250 mls @ 27.375 mls/hr 03/23/17 12:00 03/23/17 12:05 Dopamine 400 Mg/D5w - IVPB 27.375 mls/hr TITR SARAH Administration Protocol 5 MCG/KG/MIN Propofol 100 mls @ 4.38 mls/hr 03/23/17 12:00 03/24/17 12:26 Diprivan - IVPB 12 mls/hr TITR SARAH Administration Protocol 5 MCG/KG/MIN Insulin Aspart 1 vial 03/24/17 07:00 03/24/17 12:24 Novolog Vial Sliding Scale - SQ 10 units ACHS SARAH Administration Protocol Pantoprazole Sodium 40 mg 03/18/17 10:00 03/24/17 10:07 Protonix 40mg Ivpb (Pre-Docked) IVPB 40 mg DAILY [facility] Administration ASSESSMENT/PLAN: 76 y/o M with signifcant PMHx of CHF, HTN, Afib, and pulmonary HTN admitted from long-term s/p cardiac arrest 2/2 vfib admitted to ICU Problem List - Problems (1) Cardiac arrest Assessment/Plan: * Continues to require increase pressure support. * Now requiring :Norepinephrine 19mcg/hr and Dopamine @ 5mcg/hr * weaning trial unsuccessful -->will continue to duirese * Continue Amiodarone 400mg PO BID for one week then 400mg PO daily * Continue ICU monitoring. * very poor prognosis (2) Acute on chronic diastolic CHF (congestive heart failure) Assessment/Plan: * Lasix drip of 10mg/hr * No improvement. * Most likely from Low perfusion of kidneys. * CXR unchanged from yesterday. * monitor I/O's * daily weights. (3) Supratherapeutic INR Assessment/Plan: * resolved * Heparin drip for AC. (4) A-fib Assessment/Plan: * Currently paced * will hold off on AV blockage due to hypotension * Digoxin held due to renal function. (5) CKD (chronic kidney disease) Assessment/Plan: * Stage 4 GFR 23 * worsening Cr however will need to continue Lasix. * Nephrology consulted Dr. Henry will continue Lasix drip * Metolazone 5mg PO today started by Dr Drew * Maintain MAP >65 * May need dialysis but question is futility of aggressive treatment given poor prognosis. (6) DVT prophylaxis Assessment/Plan: * Heparin GGT (7) Positive culture findings in sputum Assessment/Plan: * sputum (+) for MRSA * Started on Vancomycin daily * will repeat AM labs. Visit type - Emergency Visit Emergency Visit: Yes ED Registration Date: 03/17/17 Care time: The patient presented to the Emergency Department on the above date and was hospitalized for further evaluation of their emergent condition. - New Patient This patient is new to me today: No - Critical Care Critical Care patient: Yes Total Critical Care Time (in minutes): 45 Critical Care Statement: The care of this patient involved high complexity decision making to prevent further life threatening deterioration of the patient 's condition and/or to evalute & treat vital organ system(s) failure or risk of failure.
--- NOTE | 2017-03-24 16:23 | PN ---
Physical Exam: SUBJECTIVE: Patient seen and examined. Cont to be on mech ventilation, sedated. OBJECTIVE: Vital Signs Period Temp Pulse Resp BP Sys/Krishnan Pulse Ox Last 24 Hr 97.7 F-98.5 F 72-89 18-29 106-145/52-80 96-96 GENERAL: The patient is sedated, on mech ventilation. HEAD: Normal with no signs of trauma. EYES: PERRL, sclera anicteric, conjunctiva clear. ENT: moist mucous membranes. NECK: Trachea midline, full range of motion, supple. LUNGS: Breath sounds equal, coarse breath sounds bilaterally, no crackles, no accessory muscle use. HEART: Regular rate and rhythm, S1, S2 without murmur, rub or gallop. ABDOMEN: Soft, nontender, nondistended, normoactive bowel sounds, no guarding, no rebound, no masses. EXTREMITIES: 2+ pulses, warm, 2+ edema in LE and abdomen. NEUROLOGICAL: No facial asymmetry, gait not observed, sedated. PSYCH: Sedated. Laboratory Results - last 24 hr 03/24/17 03/24/17 03/24/17 05:30 05:30 05:30 WBC 8.5 RBC 4.03 Hgb 10.4 L Hct 33.2 L MCV 82.4 MCHC 31.4 L RDW 19.6 H Plt Count 213 D MPV 8.7 Neutrophils % 89.3 H Lymphocytes % 3.7 L D Monocytes % 6.9 Eosinophils % 0.0 D Basophils % 0.1 PTT (Actin FS) 45.9 H Puncture Site ABG pH ABG pCO2 at Pt Temp ABG pO2 at Pt Temp ABG HCO3 ABG O2 Sat (Measured) ABG O2 Content ABG Base Excess Brian Test O2 Delivery Device Oxygen Flow Rate Vent Mode Vent Rate Mechanical Rate PEEP Pressure Support Vent Sodium 133 L Potassium 4.3 Chloride 94 L Carbon Dioxide 23 Anion Gap 16 BUN 102 H Creatinine 3.3 H Creat Clearance w eGFR 18.22 Random Glucose 294 H D Calcium 7.4 L Total Bilirubin 0.7 AST 25 ALT 14 Alkaline Phosphatase 93 D Total Protein 6.0 L Albumin 2.2 L Random Vancomycin 16.898 03/24/17 07:15 WBC RBC Hgb Hct MCV MCHC RDW Plt Count MPV Neutrophils % Lymphocytes % Monocytes % Eosinophils % Basophils % PTT (Actin FS) Puncture Site Right radial ABG pH 7.37 ABG pCO2 at Pt Temp 42.2 ABG pO2 at Pt Temp 101.0 H ABG HCO3 23.9 ABG O2 Sat (Measured) 98.0 ABG O2 Content 14.7 L ABG Base Excess -0.7 Brian Test Positive O2 Delivery Device Mechanical vent Oxygen Flow Rate 50% Vent Mode A/c Vent Rate 24 Mechanical Rate Yes PEEP 8.0 Pressure Support Vent 380ml Sodium Potassium Chloride Carbon Dioxide Anion Gap BUN Creatinine Creat Clearance w eGFR Random Glucose Calcium Total Bilirubin AST ALT Alkaline Phosphatase Total Protein Albumin Random Vancomycin Active Medications Generic Name Dose Route Start Last Admin Trade Name Freq PRN Reason Stop Dose Admin Amiodarone HCl 400 mg 03/19/17 19:00 03/24/17 10:07 Cordarone - PO 03/25/17 22:01 400 mg BID SARAH Administration Amiodarone HCl 400 mg 03/26/17 10:00 Cordarone - PO DAILY SARAH Atorvastatin Calcium 80 mg 03/18/17 09:45 03/23/17 21:32 Lipitor - NGT 80 mg HS SARAH Administration Chlorhexidine Gluconate 1 applic 03/17/17 22:00 03/23/17 21:32 Hibiclens For Decolonization - TP 1 applic HS SARAH Administration Chlorhexidine Gluconate 15 ml 03/18/17 22:15 03/24/17 10:07 Peridex - MM 15 ml BID SARAH Administration Heparin Sodium (Porcine) 1,000 unit 03/22/17 08:38 03/24/17 08:06 Heparin - IVPUSH 1,000 unit PRN PRN Administration Heparin Heparin Sodium (Porcine) 5,000 unit 03/22/17 08:38 Heparin - IVPUSH PRN PRN Heparin Hydrocortisone Sodium Succinate 100 mg 03/23/17 18:00 03/24/17 10:07 Solu-Cortef - IVPB 100 mg Q8H-IV SARAH Administration Furosemide 100 mg/ Dextrose 100 mls @ 10 mls/hr 03/21/17 13:45 03/23/17 13:35 IVPB 15 mls/hr TITR SARAH Administration 10 MG/HR Norepinephrine Bitartrate 8, 500 mls @ 18.75 mls/hr 03/22/17 08:45 03/24/17 10: 08 000 mcg/ Dextrose IV 56.25 mls/hr TITR SARAH Administration Protocol 5 MCG/MIN Heparin Sodium (Porcine) 25, 500 mls @ 20 mls/hr 03/22/17 08:45 03/24/17 08:00 000 unit/ Sodium Chloride IV 22 mls/hr TITR SARAH Administration Protocol 1,000 UNIT/HR Dopamine HCl/Dextrose 250 mls @ 27.375 mls/hr 03/23/17 12:00 03/23/17 12:05 Dopamine 400 Mg/D5w - IVPB 27.375 mls/hr TITR SARAH Administration Protocol 5 MCG/KG/MIN Propofol 100 mls @ 4.38 mls/hr 03/23/17 12:00 03/24/17 12:26 Diprivan - IVPB 12 mls/hr TITR SARAH Administration Protocol 5 MCG/KG/MIN Insulin Aspart 1 vial 03/24/17 07:00 03/24/17 12:24 Novolog Vial Sliding Scale - SQ 10 units ACHS SARAH Administration Protocol Pantoprazole Sodium 40 mg 03/18/17 10:00 03/24/17 10:07 Protonix 40mg Ivpb (Pre-Docked) IVPB 40 mg DAILY SARAH Administration Microbiology 03/22/17 11:15 Sputum - Endotrachea Suction/Ventilator Gram Stain - Final 03/22/17 11:15 Sputum - Endotrachea Suction/Ventilator Sputum Culture - Preliminary Mr S Aureus 03/17/17 14:59 Blood - Peripheral Venous Blood Culture - Final NO GROWTH AFTER 5 DAYS INCUBATION 03/17/17 14:55 Blood - Peripheral Venous Blood Culture - Final NO GROWTH AFTER 5 DAYS INCUBATION Echocardiogram showing right ventricular dysfunction and severe tricuspid regurgitation. ASSESSMENT/PLAN: 76 year old male w/ a significant PMH of diastolic CHF,biventricular pacemaker, COPD, HTN, HLD, Atrial Fibrillation, renal insufficiency, morbid obesity, Prostate CA, Sleep apnea on O2, generalized weakness (wheelchair-bound), Glaucoma BIBA from [facility] s/p Cardiac arrest due to V.Fib. Neuro: -[facility] FiO2 45% CVS: Cardiac arrest: pacemaker interrogation showed Vfib, cont. sedation: Propofol 5 mcg/KG/MIN cont Pressors: Dopamine at rate 5 mcg/kg/min and Norepinephrine 18.75 mls/hr continue ventilatory support f/u ABG tomorrow now on PO amiodarone cont 10 mcg/hr IV furosemide -added Metolazone 5 mg HTN: hold antihypertensives for now as patient is on dopamine Non ischemic CAD/Non ischemic cardiomyopathy: cont Lipitor Afib: INR supratherapeutic hold coumadin for now Digoxin if HR increases Digoxin level within range HLD: lipitor 80mg HS ID: -MRSA sputum -Vanco level checked in AM, given Vancomycin at 3 PM -blood cultures pending Pulm: COPD: on home oxygen PRN, minimal activity, able to walk 10 steps from chary to bed, uses wheel chair device at home. continue ventilatory support for now broncho dilators Obstructive Sleep Apnea: on vent for now Renal: CKD stage 3: at baseline renally dose all medications monitor Cr Endo: Hyperglycemia: A1C 6.4 Insulin sliding scale FEN: keep net negative fluid balance. Plant Control Aide consulted for tube feeds, will continue Glucerna. tube feeds PPx: INR supratherapeutic, Protonix Dispo: continue ICU monitor. Discussed with , full code. Problem List - Problems (1) A-fib Code(s): I48.91 - UNSPECIFIED ATRIAL FIBRILLATION Qualifiers: Atrial fibrillation type: unspecified Qualified Code(s): I48.91 - Unspecified atrial fibrillation (2) Acute on chronic diastolic CHF (congestive heart failure) Code(s): I50.33 - ACUTE ON CHRONIC DIASTOLIC (CONGESTIVE) HEART FAILURE (3) Anemia Code(s): D64.9 - ANEMIA, UNSPECIFIED (4) CKD (chronic kidney disease) Code(s): N18.9 - CHRONIC KIDNEY DISEASE, UNSPECIFIED Qualifiers: Chronic kidney disease stage: stage 4 (severe) Qualified Code(s): N18.4 - Chronic kidney disease, stage 4 (severe) (5) Cardiac arrest Code(s): I46.9 - CARDIAC ARREST, CAUSE UNSPECIFIED (6) DVT prophylaxis Code(s): AZF7133 - (7) HTN (hypertension) Code(s): I10 - ESSENTIAL (PRIMARY) HYPERTENSION (8) Hyperkalemia Code(s): E87.5 - HYPERKALEMIA (9) Hyperlipidemia Code(s): E78.5 - HYPERLIPIDEMIA, UNSPECIFIED (10) 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 hypertension Code(s): I27.2 - OTHER SECONDARY PULMONARY HYPERTENSION (11) Sleep apnea Code(s): G47.30 - SLEEP APNEA, UNSPECIFIED Visit type - Emergency Visit Emergency Visit: Yes ED Registration Date: 03/17/17 Care time: The patient presented to the Emergency Department on the above date and was hospitalized for further evaluation of their emergent condition. - New Patient This patient is new to me today: No - Critical Care Critical Care patient: Yes Total Critical Care Time (in minutes): 45 Critical Care Statement: The care of this patient involved high complexity decision making to prevent further life threatening deterioration of the patient 's condition and/or to evalute & treat vital organ system(s) failure or risk of failure.
[2017-03-24] MEDS: DOPAMINE 400 MG/D5W - 250 ML IVPB SCH (16:49)
[2017-03-24] MEDS: FUROSEMIDE INJECTION 100 MG in DEXTROSE 5%-WATER - 90 ML IVPB SCH (16:49)
[2017-03-24] MEDS: ATORVASTATIN CA 80 MG TABLET (FP) NGT SCH (22:00)
[2017-03-24] MEDS: CHLORHEXIDINE GLUCONATE 4% CLEANSER FOR DECOLONIZATION TP SCH (23:04)
[2017-03-25] MEDS: HYDROCORTISONE SOD SUCCINATE 100 MG/2 ML VIAL IVPB SCH ×3 (03:10→17:02)
--- NOTE | 2017-03-25 03:53 | PN ---
Progress Note, Physician Chief Complaint: Pt's sister (Gi) and (Kathia) at bedside. He was apparently opening his eyes earlier, though says she has been reading the Bible to him , and he has shown little response. It is their 42 anniversary. History of Present Illness: The patient is a 76 year old black male, with a significant past medical history of diastolic CHF (severely reduced RVEF of uncertain etiology; severely dilated RV on 02/2017 ECHO, per pt's staff midwife/apprenticeship director at [facility]), (non- obstructive CAD by 2008 coronary angiogram), [employer] "biventricular pacemaker , COPD, HTN, HLD, Atrial Fibrillation, renal insufficiency, Morbid obesity, Prostate CA, Sleep apnea on O2, generalzied weakness (wheelchair-bound), Glaucoma BIBA from [facility] s/p Cardiac arrest. As per EMS, the patient was initially seated in PT doing leg exercises when he became unresponsive. Patient was brought back into his room in the [place] and chest compressions were initiated by nursing staff. Down time was between 4-5 minutes. patient was shocked once and ROSC was noted. As per EMS, patient was given 150 mg of Amiodarone in the field and was brought into the ED for further evaluation. Upon arrival to the ED, patients (health care proxy) gave consent to intubate over the telephone. 2:48 PM- 20 mg of Etomidate given through IV 2:49 PM- 150 mg of Succinylcholine given through IV 2:50 PM- Patient intubated with 7.5 ET tube, positioned 24 cm at the lip Pt's says pt is followed closely by [facility] and cardiac groups. I spoke by telephone with pt's staff midwife/apprenticeship director, who provided much of the above history. - Current Medication List Current Medications: Active Medications Amiodarone HCl (Cordarone -) 400 mg PO BID [facility] Stop: 03/25/17 22:01 Last Admin: 03/24/17 22:00 Dose: 400 mg Amiodarone HCl (Cordarone -) 400 mg PO DAILY [facility] Atorvastatin Calcium (Lipitor -) 80 mg NGT [facility] Last Admin: 03/24/17 22:00 Dose: 80 mg Chlorhexidine Gluconate (Hibiclens For Decolonization -) 1 applic TP [facility] Last Admin: 03/24/17 23:04 Dose: 1 applic Chlorhexidine Gluconate (Peridex -) 15 ml MM BID SARAH Last Admin: 03/24/17 23:06 Dose: 15 ml Heparin Sodium (Porcine) (Heparin -) 1,000 unit IVPUSH PRN PRN PRN Reason: Heparin Last Admin: 03/24/17 16:50 Dose: 1,000 unit Heparin Sodium (Porcine) (Heparin -) 5,000 unit IVPUSH PRN PRN PRN Reason: Heparin Hydrocortisone Sodium Succinate (Solu-Cortef -) 100 mg IVPB Q8H-IV SARAH Last Admin: 03/25/17 03:10 Dose: 100 mg Furosemide 100 mg/ Dextrose 100 mls @ 10 mls/hr IVPB TITR SARAH PRN Reason: 10 MG/HR Last Admin: 03/24/17 16:49 Dose: 15 mls/hr Norepinephrine Bitartrate 8, (000 mcg/ Dextrose) 500 mls @ 18.75 mls/hr IV TITR SARAH; 5 MCG/MIN PRN Reason: Protocol Last Admin: 03/24/17 10:08 Dose: 56.25 mls/hr Heparin Sodium (Porcine) 25, (000 unit/ Sodium Chloride) 500 mls @ 20 mls/hr IV TITR SARAH; 1,000 UNIT/HR PRN Reason: Protocol Last Titration: 03/24/17 16:49 Dose: 1,200 unit/hr Dopamine HCl/Dextrose (Dopamine 400 Mg/D5w -) 250 mls @ 27.375 mls/hr IVPB TITR SARAH; 5 MCG/KG/MIN PRN Reason: Protocol Last Admin: 03/24/17 16:49 Dose: 16.425 mls/hr Propofol (Diprivan -) 100 mls @ 4.38 mls/hr IVPB TITR SARAH; 5 MCG/KG/MIN PRN Reason: Protocol Last Admin: 03/24/17 12:26 Dose: 12 mls/hr Insulin Aspart (Novolog Vial Sliding Scale -) 1 vial SQ ACHS SARAH PRN Reason: Protocol Last Admin: 03/24/17 23:05 Dose: 6 units Pantoprazole Sodium (Protonix 40mg Ivpb (Pre-Docked)) 40 mg IVPB DAILY SARAH Last Admin: 03/24/17 10:07 Dose: 40 mg - Objective Vital Signs: Vital Signs Temperature 98 F 03/25/17 02:00 Pulse Rate 76 03/25/17 02:00 Respiratory Rate 24 03/25/17 03:00 Blood Pressure 104/54 03/25/17 02:00 O2 Sat by Pulse Oximetry (%) 100 03/24/17 21:00 Constitutional: Yes: Obese Eyes: Yes: WNL HENT: Yes: Other Neck: Yes: Decreased ROM Cardiovascular: Yes: Murmur, S1 (split), S2 (split) Respiratory: Yes: Diminished, Mechanically Ventilated Gastrointestinal: Yes: Abdomen, Obese Genitourinary: No: Anuria Musculoskeletal: Yes: Muscle Weakness Extremities: Yes: Cool Edema: Yes Edema: LLE: 2+, RLE: 2+ Peripheral Pulses WNL: No Peripheral Pulses: Left Doralis Pedis: 1+, Right Dorsalis Pedis: 1+ Integumentary: Yes: Venous Stasis Changes Neurological: Yes: Unresponsive (little response), Weakness Psychiatric: Yes: Other Labs: CBC, BMP 03/24/17 05:30 03/24/17 05:30 INR, PTT INR 1.53 (0.82-1.09) H 03/23/17 05:35 Abnormal Lab Results 03/24/17 03/24/17 03/24/17 05:30 05:30 05:30 Hgb 10.4 L Hct 33.2 L MCHC 31.4 L RDW 19.6 H Neutrophils % 89.3 H Lymphocytes % 3.7 L D PTT (Actin FS) 45.9 H ABG pO2 at Pt Temp ABG O2 Content Sodium 133 L Chloride 94 L BUN 102 H Creatinine 3.3 H Random Glucose 294 H D Calcium 7.4 L Total Protein 6.0 L Albumin 2.2 L 03/24/17 03/24/17 07:15 15:00 Hgb Hct MCHC RDW Neutrophils % Lymphocytes % PTT (Actin FS) 46.1 H ABG pO2 at Pt Temp 101.0 H ABG O2 Content 14.7 L Sodium Chloride BUN Creatinine Random Glucose Calcium Total Protein Albumin - ....Imaging Other: Image Reviewed (telemetry: NSR; periods of AV pacing) Problem List - Problems (1) Cardiac arrest Assessment/Plan: Now on PO amiodarone. On dopamine; norepinephrine dose reduced; off vasopressin. F/u Is and Os, respiratory response to IV furosemide. Consider change from PPI to another class, eg ranitidine, especially due to pt' s multiple cardiac issues. Maintain K 4-4.5, Mg 2-2.3. Pt's poor prognosis was discussed again with , and with his sister, Gi, an RN. A conversation was had with them for about 45 minutes. His sister told pt 's that she must think of what Christrosalie would want, and that being bed- ridden and on a ventilator is not the quality of life he would desire. His says she is slowly understanding better the gravity of his condition. They are hoping that the next 24-48 hours will show better how his condition is evolving. Code(s): I46.9 - CARDIAC ARREST, CAUSE UNSPECIFIED (2) Acute on chronic diastolic CHF (congestive heart failure) Code(s): I50.33 - ACUTE ON CHRONIC DIASTOLIC (CONGESTIVE) HEART FAILURE (3) Hyperlipidemia Code(s): E78.5 - HYPERLIPIDEMIA, UNSPECIFIED (4) Sleep apnea Code(s): G47.30 - SLEEP APNEA, UNSPECIFIED (5) HTN (hypertension) Code(s): I10 - ESSENTIAL (PRIMARY) HYPERTENSION (6) 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 hypertension Code(s): I27.2 - OTHER SECONDARY PULMONARY HYPERTENSION (7) Hyperkalemia Code(s): E87.5 - HYPERKALEMIA (8) Anemia Code(s): D64.9 - ANEMIA, UNSPECIFIED (9) Acute on chronic renal failure Code(s): N17.9 - ACUTE KIDNEY FAILURE, UNSPECIFIED N18.9 - CHRONIC KIDNEY DISEASE, UNSPECIFIED Assessment/Plan CC time spent: 45 minutes
[2017-03-25 06:16] LABS: MCH 25.6 pg (25.7-33.7); MCHC 31.5 g/dl (32.0-35.9); MEAN CELL VOLUME 81.3 fl (80-96); MEAN PLT VOLUME 8.2 fl (7.5-11.1); PLATELET COUNT 195 K/MM3 (134-434); RDW 19.4 % (11.9-15.9); WHITE BLOOD COUNT 7.5 K/mm3 (4.0-10.0)
[2017-03-25 06:45] LABS: ALBUMIN 2.1 g/dl (3.4-5.0); BILIRUBIN,TOTAL 0.5 mg/dL (0.2-1.0); CALCIUM 7.1 mg/dL (8.5-10.1); COCKROFT - GAULT 36.31; CREATININE 3.5 mg/dL (0.7-1.3); TOT PROT 5.5 g/dl (6.4-8.2)
[2017-03-25 07:22] LABS: ALLENS TEST POSITIVE; ART PUNCT SITE RIGHT RADIAL; ARTERIAL BLD GAS O2 SATURATION 98.7 % (90-98.9); ARTERIAL BLOOD GAS BASE EXCESS -0.4 meq/l (-2-2); ARTERIAL BLOOD GAS HCO3 23.9 meq/L (22-26); ARTERIAL BLOOD GAS pH 7.39 (7.35-7.45); LPM/O2% 45%; MECH. VENT. YES; PT. ON O2? YES; TYPE OF O2 VENT; VENT RATE 24; VT/PRESS 380
[2017-03-25] MEDS: INSULIN SLIDING SCALE (NOVOLOG) 1 VIAL SQ SCH ×4 (07:29→23:07)
[2017-03-25] MEDS ORDERED: FUROSEMIDE 100 MG/10 ML INJECTABLE VIAL ONE ×3 (07:37→22:15)
[2017-03-25] MEDS ORDERED: DOPamine HCL 400 MG/10 ML VIAL ONE (07:37)
--- NOTE | 2017-03-25 08:49 | PN ---
Teaching Attending Note Name of Resident: Cleve Bourgeois ATTENDING PHYSICIAN STATEMENT I saw and evaluated the patient. I reviewed the resident's note and discussed the case with the resident. I agree with the resident's findings and plan as documented. SUBJECTIVE: Patient is in ICU, off the sedation, able to answer some questions with his eyes. OBJECTIVE: Vital Signs Temperature 98.5 F 03/25/17 06:00 Pulse Rate 70 03/25/17 08:00 Respiratory Rate 24 03/25/17 08:00 Blood Pressure 102/59 03/25/17 08:00 O2 Sat by Pulse Oximetry (%) 100 03/24/17 21:00 CBCD WBC 7.5 K/mm3 (4.0-10.0) 03/25/17 05:20 RBC 3.55 M/mm3 (4.00-5.60) L 03/25/17 05:20 Hgb 9.1 GM/dL (11.7-16.9) L D 03/25/17 05:20 Hct 28.9 % (35.4-49) L 03/25/17 05:20 MCV 81.3 fl (80-96) 03/25/17 05:20 MCHC 31.5 g/dl (32.0-35.9) L 03/25/17 05:20 RDW 19.4 % (11.9-15.9) H 03/25/17 05:20 Plt Count 195 K/MM3 (134-434) 03/25/17 05:20 MPV 8.2 fl (7.5-11.1) 03/25/17 05:20 CMP Sodium 132 mmol/L (136-145) L 03/25/17 05:20 Potassium 4.0 mmol/L (3.5-5.1) 03/25/17 05:20 Chloride 93 mmol/L (98-107) L 03/25/17 05:20 Carbon Dioxide 25 mmol/L (21-32) 03/25/17 05:20 Anion Gap 14 (8-16) 03/25/17 05:20 BUN 106 mg/dL (7-18) H* 03/25/17 05:20 Creatinine 3.5 mg/dL (0.7-1.3) H 03/25/17 05:20 Creat Clearance w eGFR 17.02 (>60) 03/25/17 05:20 Random Glucose 227 mg/dL (74-106) H D 03/25/17 05:20 Calcium 7.1 mg/dL (8.5-10.1) L 03/25/17 05:20 Total Bilirubin 0.5 mg/dL (0.2-1.0) D 03/25/17 05:20 AST 42 U/L (15-37) H D 03/25/17 05:20 ALT 21 U/L (12-78) D 03/25/17 05:20 Alkaline Phosphatase 84 U/L (45-117) 03/25/17 05:20 Total Protein 5.5 g/dl (6.4-8.2) L 03/25/17 05:20 Albumin 2.1 g/dl (3.4-5.0) L 03/25/17 05:20 CARDIAC ENZYMES Creatine Kinase 146 IU/L (39-308) 03/18/17 10:23 Troponin I 0.16 ng/ml (0.00-0.05) H D 03/18/17 10:23 Current Medications Generic Name Dose Route Start Last Admin Trade Name Freq PRN Reason Stop Dose Admin Amiodarone HCl 400 mg 03/19/17 19:00 03/24/17 22:00 Cordarone - PO 03/25/17 22:01 400 mg BID SARAH Administration Amiodarone HCl 400 mg 03/26/17 10:00 Cordarone - PO DAILY SARAH Atorvastatin Calcium 80 mg 03/18/17 09:45 03/24/17 22:00 Lipitor - NGT 80 mg HS SARAH Administration Chlorhexidine Gluconate 1 applic 03/17/17 22:00 03/24/17 23:04 Hibiclens For Decolonization - TP 1 applic HS SARAH Administration Chlorhexidine Gluconate 15 ml 03/18/17 22:15 03/24/17 23:06 Peridex - MM 15 ml BID SARAH Administration Heparin Sodium (Porcine) 1,000 unit 03/22/17 08:38 03/24/17 16:50 Heparin - IVPUSH 1,000 unit PRN PRN Administration Heparin Heparin Sodium (Porcine) 5,000 unit 03/22/17 08:38 Heparin - IVPUSH PRN PRN Heparin Hydrocortisone Sodium Succinate 100 mg 03/23/17 18:00 03/25/17 03:10 Solu-Cortef - IVPB 100 mg Q8H-IV SARAH Administration Furosemide 100 mg/ Dextrose 100 mls @ 10 mls/hr 03/21/17 13:45 03/24/17 16:49 IVPB 15 mls/hr TITR SARAH Administration 10 MG/HR Norepinephrine Bitartrate 8, 500 mls @ 18.75 mls/hr 03/22/17 08:45 03/24/17 10: 08 000 mcg/ Dextrose IV 56.25 mls/hr TITR SARAH Administration Protocol 5 MCG/MIN Heparin Sodium (Porcine) 25, 500 mls @ 20 mls/hr 03/22/17 08:45 03/24/17 16:49 000 unit/ Sodium Chloride IV 1,200 unit/hr TITR SARAH Titration Protocol 1,000 UNIT/HR Dopamine HCl/Dextrose 250 mls @ 27.375 mls/hr 03/23/17 12:00 03/24/17 16:49 Dopamine 400 Mg/D5w - IVPB 16.425 mls/hr TITR SARAH Administration Protocol 5 MCG/KG/MIN Propofol 100 mls @ 4.38 mls/hr 03/23/17 12:00 03/24/17 12:26 Diprivan - IVPB 12 mls/hr TITR SARAH Administration Protocol 5 MCG/KG/MIN Insulin Aspart 1 vial 03/24/17 07:00 03/25/17 07:29 Novolog Vial Sliding Scale - SQ 8 units ACHS SARAH Administration Protocol Pantoprazole Sodium 40 mg 03/18/17 10:00 03/24/17 10:07 Protonix 40mg Ivpb (Pre-Docked) IVPB 40 mg DAILY SARAH Administration Home Medications Medication Instructions Recorded Allopurinol 300 mg PO DAILY 03/17/17 Digoxin [Lanoxin -] 0.125 mg PO DAILY 03/17/17 Docusate Sodium [Colace -] 300 mg PO HS 03/17/17 Ferrous Sulfate 650 mg PO BID 03/17/17 Furosemide [Lasix -] 80 mg PO DAILY 03/17/17 Latanoprost 0.005% Eye Drops 1 drop OU HS 03/17/17 [Xalatan 0.005% Eye Drops -] Metolazone [Zaroxolyn -] 2.5 mg PO AM 03/17/17 Nystatin Cream [Mycostatin] 1 applic TP BID 03/17/17 Polyethylene Glycol 3350 [Miralax 17 gm PO DAILY 03/17/17 (For Daily Use) -] Sennosides [Evac-U-Gen] 2 tab PO DAILY 03/17/17 Simvastatin [Zocor -] 80 mg PO HS 03/17/17 Sod Lactate/Amm Lact/Pot Lact 1 applic TP BID 03/17/17 [Amlactin Ultra Body Cream] Triamcinolone 0.1% Cream 1 applic TP BID 03/17/17 [Aristocort] Warfarin Na [Coumadin -] 7.5 mg PO Q7D 03/17/17 Warfarin Sodium [Coumadin] 5 mg PO ASDIR 03/17/17 ASSESSMENT AND PLAN: 76 y/o man with h/o Severe cardiomypathy( non ischemic ) ,with severely reduced EF, and PULm HTN, Diastolic dysfunction , A fib on AC, who presented with cardiac arrest (V fib ) from his longterm # S/P cardiac arrest s/p hypothermic protocol: due to severe R sided cardiomyopathy ,with Severe non-ischemic cardiomypoathy . ON levophed and dopamine for BP support, will try to taper it off. - cont Amio 400 mg BID x 1 week then 400 daily starting on 03/26 # Acute hypoxic respiratory failure s/p Intubation :due to cardiac arrest / exacerbation of CHF/questional PNA on IV antibiotic zosyn and vanco ( sputum with MRSA ) . appreciate ID Recs ,follow final sputum cx ,Vent support per ICU team # Acute on chronic systolic and diastolic heart failure on lasix gtt.continue. Will try to reduce the fluid intake by making it double concentration. still in positive fluid balance despite being on lasix gtt. # A fib: rate is controlled on heparin drip continue # Coumadin coagulopathy: resolved # CKD : Cr slightly increased . monitor with diuresis \renal consult appreciated DVT px :on AC
--- NOTE | 2017-03-25 09:00 | PN ---
Progress Note (short form) - Note Progress Note: remains sedated and intubated remains on pressors Vital Signs Period Temp Pulse Resp BP Sys/Krishnan Pulse Ox Last 24 Hr 97.9 F-98.5 F 70-89 18-29 101-111/48-64 96-100 cor-rrr lungs decreased bs at bases abd soft,nt ext venous stasis +brooks +left IJ CVP CBC, BMP 03/25/17 05:20 03/25/17 05:20 Microbiology 03/22/17 11:15 Sputum - Endotrachea Suction/Ventilator Gram Stain - Final 03/22/17 11:15 Sputum - Endotrachea Suction/Ventilator Sputum Culture - Preliminary Presumptive Mrsa (Pbp2a Pos) 03/17/17 14:59 Blood - Peripheral Venous Blood Culture - Final NO GROWTH AFTER 5 DAYS INCUBATION 03/17/17 14:55 Blood - Peripheral Venous Blood Culture - Final NO GROWTH AFTER 5 DAYS INCUBATION cxray unchanged a/p s/p code MRSA in sputum- possible pneumonia resp failure SUJATA/CKD vancomycin by levels- keep at 15 cardiomyopathy/PPM Problem List - Problems (1) Cardiac arrest Code(s): I46.9 - CARDIAC ARREST, CAUSE UNSPECIFIED (2) Pneumonia Code(s): J18.9 - PNEUMONIA, UNSPECIFIED ORGANISM (3) CKD (chronic kidney disease) Code(s): N18.9 - CHRONIC KIDNEY DISEASE, UNSPECIFIED Qualifiers: Chronic kidney disease stage: stage 4 (severe) Qualified Code(s): N18.4 - Chronic kidney disease, stage 4 (severe) (4) Cardiomyopathy Code(s): I42.9 - CARDIOMYOPATHY, UNSPECIFIED
[2017-03-25] MEDS: AMIODARONE HCL 200 MG TABLET (FP) PO SCH ×2 (10:28→23:06)
[2017-03-25] MEDS: CHLORHEXIDINE GLUCONATE 0.12% 15ML CUP MM SCH ×2 (10:28→23:06)
[2017-03-25] MEDS: PANTOPRAZOLE SODIUM 40 MG/100 ML PRE-DOCKED IVPB SCH (10:28)
[2017-03-25] MEDS: HEPARIN - 25,000 UNIT in SODIUM CHLORIDE 495 ML IV SCH (10:37)
[2017-03-25] MEDS: NOREPINEPHRINE BITARTRATE 8,000 MCG in DEXTROSE 5%-WATER - 492 ML IV SCH (10:37)
[2017-03-25] MEDS: PROPOFOL 100 ML IVPB SCH ×3 (10:38→22:00)
--- NOTE | 2017-03-25 11:05 | PN ---
Progress Note (short form) - Note Progress Note: Renal Follow up for SUJATA/Fluid overload Pt seen and examined in the ICU awake off sedation remains on vent Levo decreased to 10, remains on dopamine MAPs at goal good urine output remains grossly positive Vital Signs Temperature 98.5 F 03/25/17 06:00 Pulse Rate 72 03/25/17 10:37 Respiratory Rate 24 03/25/17 08:00 Blood Pressure 116/70 03/25/17 10:37 O2 Sat by Pulse Oximetry (%) 100 03/24/17 21:00 Intake & Output 03/22/17 03/23/17 03/24/17 03/25/17 23:59 23:59 23:59 23:59 Intake Total 3293.7 5697.6 4330 1750 Output Total 775 1500 1800 400 Balance 2518.7 4197.6 2530 1350 Weight 313 lb 4.8 oz 321 lb 13.998 oz 325 lb 6.4 oz 334 lb 3.532 oz Gen: on Vent, awake CVS: RRR, No M/R Lungs: DEC BS throughout the lung ortiz, no rales Abd: soft, Obese, ND Ext: 2+ edema in LE, no cyanosis, warm ext : Ridley in place CBC, BMP 03/25/17 05:20 03/25/17 05:20 Laboratory Tests 03/25/17 05:20 Creat Clearance w eGFR 17.02 Calcium 7.1 L Albumin 2.1 L Current Medications Amiodarone HCl (Cordarone -) 400 mg PO BID [facility] Stop: 03/25/17 22:01 Last Admin: 03/25/17 10:28 Dose: 400 mg Amiodarone HCl (Cordarone -) 400 mg PO DAILY [facility] Atorvastatin Calcium (Lipitor -) 80 mg NGT HS [facility] Last Admin: 03/24/17 22:00 Dose: 80 mg Chlorhexidine Gluconate (Hibiclens For Decolonization -) 1 applic TP HS [facility] Last Admin: 03/24/17 23:04 Dose: 1 applic Chlorhexidine Gluconate (Peridex -) 15 ml MM BID [facility] Last Admin: 03/25/17 10:28 Dose: 15 ml Heparin Sodium (Porcine) (Heparin -) 1,000 unit IVPUSH PRN PRN PRN Reason: Heparin Last Admin: 03/24/17 16:50 Dose: 1,000 unit Heparin Sodium (Porcine) (Heparin -) 5,000 unit IVPUSH PRN PRN PRN Reason: Heparin Hydrocortisone Sodium Succinate (Solu-Cortef -) 100 mg IVPB Q8H-IV [facility] Last Admin: 03/25/17 10:28 Dose: 100 mg Furosemide 100 mg/ Dextrose 100 mls @ 10 mls/hr IVPB TITR SARAH PRN Reason: 10 MG/HR Last Admin: 03/24/17 16:49 Dose: 15 mls/hr Norepinephrine Bitartrate 8, (000 mcg/ Dextrose) 500 mls @ 18.75 mls/hr IV TITR SARAH; 5 MCG/MIN PRN Reason: Protocol Last Admin: 03/25/17 10:37 Dose: 37.5 mls/hr Heparin Sodium (Porcine) 25, (000 unit/ Sodium Chloride) 500 mls @ 20 mls/hr IV TITR SARAH; 1,000 UNIT/HR PRN Reason: Protocol Last Admin: 03/25/17 10:37 Dose: 24 mls/hr Dopamine HCl/Dextrose (Dopamine 400 Mg/D5w -) 250 mls @ 27.375 mls/hr IVPB TITR SARAH; 5 MCG/KG/MIN PRN Reason: Protocol Last Admin: 03/24/17 16:49 Dose: 16.425 mls/hr Propofol (Diprivan -) 100 mls @ 4.38 mls/hr IVPB TITR SARAH; 5 MCG/KG/MIN PRN Reason: Protocol Last Admin: 03/25/17 10:38 Dose: 20 mls/hr Insulin Aspart (Novolog Vial Sliding Scale -) 1 vial SQ ACHS SARAH PRN Reason: Protocol Last Admin: 03/25/17 07:29 Dose: 8 units Metolazone (Zaroxolyn -) 10 mg PO ONCE ONE Stop: 03/25/17 11:01 Pantoprazole Sodium (Protonix 40mg Ivpb (Pre-Docked)) 40 mg IVPB DAILY [facility] Last Admin: 03/25/17 10:28 Dose: 40 mg A/P 76 year old Gentleman with PMhx of CKD, CHF, Hypertension, Afib, Obesity, Prostate Ca who presented s/p cardiac arrest with SUJATA and Volume overload #Non-Oliguric Acute on Chronic renal insufficiency with volume overload Renal function is essentially stable pt is non-oliguric put remains grossly overloaded at this time Continue Lasix gtt, Give additional dose of Metolazone 10mg try to decrease fluid infusions if possible no acute indication for dialysis today Dose all meds for Cr Cl less then 15 portable Renal US #Hyponatremia from fluid overload stable continue diuretics at this time #Shock/Resp Failure management as per ICU keep MAP > 65 titrate pressers as per ICU Thank you Garry Drew DO
--- NOTE | 2017-03-25 11:46 | PN ---
Physical Exam: SUBJECTIVE: Patient seen and examined. He is sedated, arousable, follows commands. No overnight events. present at bedside. OBJECTIVE: Vital Signs Period Temp Pulse Resp BP Sys/Krishnan Pulse Ox Last 24 Hr 97.9 F-98.5 F 70-88 18-29 101-116/48-70 100 GENERAL: The patient is sedated, on mech ventilation. HEAD: Normal with no signs of trauma. EYES: PERRL, sclera anicteric, conjunctiva clear. ENT: moist mucous membranes. NECK: Trachea midline, full range of motion, supple. LUNGS: Breath sounds equal, coarse breath sounds bilaterally, no crackles, no accessory muscle use. HEART: Regular rate and rhythm, S1, S2 without murmur, rub or gallop. ABDOMEN: Soft, nontender, nondistended, normoactive bowel sounds, no guarding, no rebound, no masses. EXTREMITIES: 2+ pulses, warm, 2+ edema in LE and abdomen. NEUROLOGICAL: No facial asymmetry, following commands, motor 1/5 in all extremities, gait not observed, sedated. PSYCH: Sedated. Laboratory Results - last 24 hr 03/24/17 03/24/17 03/24/17 05:47 12:24 15:00 WBC RBC Hgb Hct MCV MCHC RDW Plt Count MPV PTT (Actin FS) 46.1 H Puncture Site ABG pH ABG pCO2 at Pt Temp ABG pO2 at Pt Temp ABG HCO3 ABG O2 Sat (Measured) ABG O2 Content ABG Base Excess Brian Test O2 Delivery Device Oxygen Flow Rate Vent Mode Vent Rate Mechanical Rate PEEP Pressure Support Vent Sodium Potassium Chloride Carbon Dioxide Anion Gap BUN Creatinine Creat Clearance w eGFR POC Glucometer > 400 > 400 Random Glucose Calcium Total Bilirubin AST ALT Alkaline Phosphatase Total Protein Albumin Random Vancomycin 03/24/17 03/24/17 03/25/17 17:44 22:10 05:20 WBC 7.5 RBC 3.55 L Hgb 9.1 L D Hct 28.9 L MCV 81.3 MCHC 31.5 L RDW 19.4 H Plt Count 195 MPV 8.2 PTT (Actin FS) Puncture Site ABG pH ABG pCO2 at Pt Temp ABG pO2 at Pt Temp ABG HCO3 ABG O2 Sat (Measured) ABG O2 Content ABG Base Excess Brian Test O2 Delivery Device Oxygen Flow Rate Vent Mode Vent Rate Mechanical Rate PEEP Pressure Support Vent Sodium Potassium Chloride Carbon Dioxide Anion Gap BUN Creatinine Creat Clearance w eGFR POC Glucometer 265.34763 261.54626 Random Glucose Calcium Total Bilirubin AST ALT Alkaline Phosphatase Total Protein Albumin Random Vancomycin 03/25/17 03/25/17 03/25/17 05:20 05:20 05:40 WBC RBC Hgb Hct MCV MCHC RDW Plt Count MPV PTT (Actin FS) 58.1 H Puncture Site ABG pH ABG pCO2 at Pt Temp ABG pO2 at Pt Temp ABG HCO3 ABG O2 Sat (Measured) ABG O2 Content ABG Base Excess Brian Test O2 Delivery Device Oxygen Flow Rate Vent Mode Vent Rate Mechanical Rate PEEP Pressure Support Vent Sodium 132 L Potassium 4.0 Chloride 93 L Carbon Dioxide 25 Anion Gap 14 BUN 106 H* Creatinine 3.5 H Creat Clearance w eGFR 17.02 POC Glucometer [phone] Random Glucose 227 H D Calcium 7.1 L Total Bilirubin 0.5 D AST 42 H D ALT 21 D Alkaline Phosphatase 84 Total Protein 5.5 L Albumin 2.1 L Random Vancomycin 03/25/17 03/25/17 07:10 08:17 WBC RBC Hgb Hct MCV MCHC RDW Plt Count MPV PTT (Actin FS) Puncture Site Right radial ABG pH 7.39 ABG pCO2 at Pt Temp 40.0 ABG pO2 at Pt Temp 103.0 H ABG HCO3 23.9 ABG O2 Sat (Measured) 98.7 ABG O2 Content 13.0 L ABG Base Excess -0.4 Brian Test Positive O2 Delivery Device Vent Oxygen Flow Rate 45% Vent Mode A/c Vent Rate 24 Mechanical Rate Yes PEEP 8.0 Pressure Support Vent 380 Sodium Potassium Chloride Carbon Dioxide Anion Gap BUN Creatinine Creat Clearance w eGFR POC Glucometer Random Glucose Calcium Total Bilirubin AST ALT Alkaline Phosphatase Total Protein Albumin Random Vancomycin 18.802 Active Medications Generic Name Dose Route Start Last Admin Trade Name Freq PRN Reason Stop Dose Admin Amiodarone HCl 400 mg 03/19/17 19:00 03/25/17 10:28 Cordarone - PO 03/25/17 22:01 400 mg BID SARAH Administration Amiodarone HCl 400 mg 03/26/17 10:00 Cordarone - PO DAILY [facility] Atorvastatin Calcium 80 mg 03/18/17 09:45 03/24/17 22:00 Lipitor - NGT 80 mg HS SARAH Administration Chlorhexidine Gluconate 1 applic 03/17/17 22:00 03/24/17 23:04 Hibiclens For Decolonization - TP 1 applic HS SARAH Administration Chlorhexidine Gluconate 15 ml 03/18/17 22:15 03/25/17 10:28 Peridex - MM 15 ml BID SARAH Administration Heparin Sodium (Porcine) 1,000 unit 03/22/17 08:38 03/24/17 16:50 Heparin - IVPUSH 1,000 unit PRN PRN Administration Heparin Heparin Sodium (Porcine) 5,000 unit 03/22/17 08:38 Heparin - IVPUSH PRN PRN Heparin Hydrocortisone Sodium Succinate 100 mg 03/23/17 18:00 03/25/17 10:28 Solu-Cortef - IVPB 100 mg Q8H-IV SARAH Administration Furosemide 100 mg/ Dextrose 100 mls @ 10 mls/hr 03/21/17 13:45 03/24/17 16:49 IVPB 15 mls/hr TITR SARAH Administration 10 MG/HR Norepinephrine Bitartrate 8, 500 mls @ 18.75 mls/hr 03/22/17 08:45 03/25/17 10: 37 000 mcg/ Dextrose IV 37.5 mls/hr TITR SARAH Administration Protocol 5 MCG/MIN Heparin Sodium (Porcine) 25, 500 mls @ 20 mls/hr 03/22/17 08:45 03/25/17 10:37 000 unit/ Sodium Chloride IV 24 mls/hr TITR SARAH Administration Protocol 1,000 UNIT/HR Dopamine HCl/Dextrose 250 mls @ 27.375 mls/hr 03/23/17 12:00 03/24/17 16:49 Dopamine 400 Mg/D5w - IVPB 16.425 mls/hr TITR SARAH Administration Protocol 5 MCG/KG/MIN Propofol 100 mls @ 4.38 mls/hr 03/23/17 12:00 03/25/17 10:38 Diprivan - IVPB 20 mls/hr TITR SARAH Administration Protocol 5 MCG/KG/MIN Insulin Aspart 1 vial 03/24/17 07:00 03/25/17 07:29 Novolog Vial Sliding Scale - SQ 8 units ACHS SARAH Administration Protocol Metolazone 10 mg 03/25/17 11:00 Zaroxolyn - PO 03/25/17 11:01 ONCE ONE Pantoprazole Sodium 40 mg 03/18/17 10:00 03/25/17 10:28 Protonix 40mg Ivpb (Pre-Docked) IVPB 40 mg DAILY [facility] Administration Microbiology 03/22/17 11:15 Sputum - Endotrachea Suction/Ventilator Gram Stain - Final 03/22/17 11:15 Sputum - Endotrachea Suction/Ventilator Sputum Culture - Preliminary S Aureus 03/17/17 14:59 Blood - Peripheral Venous Blood Culture - Final NO GROWTH AFTER 5 DAYS INCUBATION 03/17/17 14:55 Blood - Peripheral Venous Blood Culture - Final NO GROWTH AFTER 5 DAYS INCUBATION Echocardiogram showing right ventricular dysfunction and severe tricuspid regurgitation. ASSESSMENT/PLAN: 76 year old male w/ a significant PMH of diastolic CHF,biventricular pacemaker, COPD, HTN, HLD, Atrial Fibrillation, renal insufficiency, morbid obesity, Prostate CA, Sleep apnea on O2, generalized weakness (wheelchair-bound), Glaucoma BIBA from [facility] s/p Cardiac arrest due to V.Fib. Neuro: -on CPAP -sedated, [facility], FiO2 decreassed to 40% CVS: Cardiac arrest: pacemaker interrogation showed Vfib, cont. sedation: Propofol 5 mcg/KG/MIN Pressors: Dopamine at rate 5 mcg/kg/min will be DC today and Norepinephrine decreased continue ventilatory support f/u ABG tomorrow now on PO amiodarone cont furosemide added Metolazone 5 mg today again HTN: hold antihypertensives for now as patient is on dopamine Non ischemic CAD/Non ischemic cardiomyopathy: cont Lipitor Afib: INR supratherapeutic hold coumadin for now Digoxin if HR increases Digoxin level within range HLD: lipitor 80mg HS ID: -MRSA sputum -Vanco level ordered this AM -blood cultures pending Pulm: COPD: on home oxygen PRN, minimal activity, able to walk 10 steps from chary to bed, uses wheel chair device at home. continue ventilatory support for now broncho dilators Obstructive Sleep Apnea: on vent for now Renal: CKD stage 3: at baseline renally dose all medications monitor Cr Endo: Hyperglycemia: A1C 6.4 Insulin sliding scale FEN: keep net negative fluid balance. [employer] consulted for tube feeds, will continue Glucerna 1.5, tube feeding decreased 45. tube feeds PPx: INR supratherapeutic, Protonix Dispo: continue ICU monitor. Discussed with , full code. Problem List - Problems (1) A-fib Code(s): I48.91 - UNSPECIFIED ATRIAL FIBRILLATION Qualifiers: Atrial fibrillation type: unspecified Qualified Code(s): I48.91 - Unspecified atrial fibrillation (2) Acute on chronic diastolic CHF (congestive heart failure) Code(s): I50.33 - ACUTE ON CHRONIC DIASTOLIC (CONGESTIVE) HEART FAILURE (3) Anemia Code(s): D64.9 - ANEMIA, UNSPECIFIED (4) CKD (chronic kidney disease) Code(s): N18.9 - CHRONIC KIDNEY DISEASE, UNSPECIFIED Qualifiers: Chronic kidney disease stage: stage 4 (severe) Qualified Code(s): N18.4 - Chronic kidney disease, stage 4 (severe) (5) Cardiac arrest Code(s): I46.9 - CARDIAC ARREST, CAUSE UNSPECIFIED (6) DVT prophylaxis Code(s): EYD9313 - (7) HTN (hypertension) Code(s): I10 - ESSENTIAL (PRIMARY) HYPERTENSION (8) Hyperkalemia Code(s): E87.5 - HYPERKALEMIA (9) Hyperlipidemia Code(s): E78.5 - HYPERLIPIDEMIA, UNSPECIFIED (10) 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 hypertension Code(s): I27.2 - OTHER SECONDARY PULMONARY HYPERTENSION (11) Sleep apnea Code(s): G47.30 - SLEEP APNEA, UNSPECIFIED Visit type - Emergency Visit Emergency Visit: Yes ED Registration Date: 03/17/17 Care time: The patient presented to the Emergency Department on the above date and was hospitalized for further evaluation of their emergent condition. - New Patient This patient is new to me today: No - Critical Care Critical Care patient: Yes Total Critical Care Time (in minutes): 465 Critical Care Statement: The care of this patient involved high complexity decision making to prevent further life threatening deterioration of the patient 's condition and/or to evalute & treat vital organ system(s) failure or risk of failure.
--- NOTE | 2017-03-25 11:53 | PN ---
Progress Note, Physician History of Present Illness: The patient is a 76 year old black male, with a significant past medical history of diastolic CHF (severely reduced RVEF of uncertain etiology; severely dilated RV on 02/2017 ECHO, per pt's broadcast correspondent at [facility]), (non- obstructive CAD by 2008 coronary angiogram), [employer] "biventricular pacemaker , COPD, HTN, HLD, Atrial Fibrillation, renal insufficiency, Morbid obesity, Prostate CA, Sleep apnea on O2, generalzied weakness (wheelchair-bound), Glaucoma BIBA from [facility] s/p Cardiac arrest. As per EMS, the patient was initially seated in PT doing leg exercises when he became unresponsive. Patient was brought back into his room in the ND and chest compressions were initiated by nursing staff. Down time was between 4-5 minutes. patient was shocked once and ROSC was noted. As per EMS, patient was given 150 mg of Amiodarone in the field and was brought into the ED for further evaluation. Upon arrival to the ED, patients (health care proxy) gave consent to intubate over the telephone. 2:48 PM- 20 mg of Etomidate given through IV 2:49 PM- 150 mg of Succinylcholine given through IV 2:50 PM- Patient intubated with 7.5 ET tube, positioned 24 cm at the lip Pt's says pt is followed closely by [facility] and cardiac groups. I spoke by telephone with pt's broadcast correspondent, who provided much of the above history. - Current Medication List Current Medications: Active Medications Amiodarone HCl (Cordarone -) 400 mg PO BID [facility] Stop: 03/25/17 22:01 Last Admin: 03/25/17 10:28 Dose: 400 mg Amiodarone HCl (Cordarone -) 400 mg PO DAILY [facility] Atorvastatin Calcium (Lipitor -) 80 mg NGT [facility] Last Admin: 03/24/17 22:00 Dose: 80 mg Chlorhexidine Gluconate (Hibiclens For Decolonization -) 1 applic TP [facility] Last Admin: 03/24/17 23:04 Dose: 1 applic Chlorhexidine Gluconate (Peridex -) 15 ml MM BID [facility] Last Admin: 03/25/17 10:28 Dose: 15 ml Heparin Sodium (Porcine) (Heparin -) 1,000 unit IVPUSH PRN PRN PRN Reason: Heparin Last Admin: 03/24/17 16:50 Dose: 1,000 unit Heparin Sodium (Porcine) (Heparin -) 5,000 unit IVPUSH PRN PRN PRN Reason: Heparin Hydrocortisone Sodium Succinate (Solu-Cortef -) 100 mg IVPB Q8H-IV [facility]AH Last Admin: 03/25/17 10:28 Dose: 100 mg Furosemide 100 mg/ Dextrose 100 mls @ 10 mls/hr IVPB TITR SARAH PRN Reason: 10 MG/HR Last Admin: 03/24/17 16:49 Dose: 15 mls/hr Norepinephrine Bitartrate 8, (000 mcg/ Dextrose) 500 mls @ 18.75 mls/hr IV TITR SARAH; 5 MCG/MIN PRN Reason: Protocol Last Admin: 03/25/17 10:37 Dose: 37.5 mls/hr Heparin Sodium (Porcine) 25, (000 unit/ Sodium Chloride) 500 mls @ 20 mls/hr IV TITR SARAH; 1,000 UNIT/HR PRN Reason: Protocol Last Admin: 03/25/17 10:37 Dose: 24 mls/hr Dopamine HCl/Dextrose (Dopamine 400 Mg/D5w -) 250 mls @ 27.375 mls/hr IVPB TITR SARAH; 5 MCG/KG/MIN PRN Reason: Protocol Last Admin: 03/24/17 16:49 Dose: 16.425 mls/hr Propofol (Diprivan -) 100 mls @ 4.38 mls/hr IVPB TITR SARAH; 5 MCG/KG/MIN PRN Reason: Protocol Last Admin: 03/25/17 10:38 Dose: 20 mls/hr Insulin Aspart (Novolog Vial Sliding Scale -) 1 vial SQ ACHS SARAH PRN Reason: Protocol Last Admin: 03/25/17 07:29 Dose: 8 units Metolazone (Zaroxolyn -) 10 mg PO ONCE ONE Stop: 03/25/17 11:01 Pantoprazole Sodium (Protonix 40mg Ivpb (Pre-Docked)) 40 mg IVPB DAILY [facility] Last Admin: 03/25/17 10:28 Dose: 40 mg - Objective Vital Signs: Vital Signs Temperature 98 F 03/25/17 10:00 Pulse Rate 72 03/25/17 10:37 Respiratory Rate 18 03/25/17 10:00 Blood Pressure 116/70 03/25/17 10:37 O2 Sat by Pulse Oximetry (%) 100 03/25/17 09:00 Eyes: Yes: WNL, Conjunctiva Clear, EOM Intact HENT: Yes: WNL, Atraumatic, Normocephalic Neck: Yes: WNL, Supple, Trachea Midline Cardiovascular: Yes: WNL, Regular Rate and Rhythm Respiratory: Yes: Regular, Intubated, Mechanically Ventilated Gastrointestinal: Yes: WNL, Normal Bowel Sounds Genitourinary: Yes: WNL Musculoskeletal: Yes: WNL Extremities: Yes: WNL Edema: Yes Integumentary: Yes: WNL Neurological: Yes: WNL, Alert, Oriented ...Motor Strength: WNL Psychiatric: Yes: WNL Labs: CBC, BMP 03/25/17 05:20 03/25/17 05:20 INR, PTT INR 1.53 (0.82-1.09) H 03/23/17 05:35 Assessment/Plan (1) Cardiac arrest Assessment/Plan: Now on PO amiodarone. On dopamine; norepinephrine dose reduced; off vasopressin. F/u Is and Os, respiratory response to IV furosemide. Consider change from PPI to another class, eg ranitidine, especially due to pt' s multiple cardiac issues. Maintain K 4-4.5, Mg 2-2.3. awake intubated today. AICD placement when stable. (2) Acute on chronic diastolic CHF (congestive heart failure) Code(s): I50.33 - ACUTE ON CHRONIC DIASTOLIC (CONGESTIVE) HEART FAILURE (3) Hyperlipidemia Code(s): E78.5 - HYPERLIPIDEMIA, UNSPECIFIED (4) Sleep apnea Code(s): G47.30 - SLEEP APNEA, UNSPECIFIED (5) HTN (hypertension) Code(s): I10 - ESSENTIAL (PRIMARY) HYPERTENSION (6) 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 hypertension Code(s): I27.2 - OTHER SECONDARY PULMONARY HYPERTENSION (7) Hyperkalemia Code(s): E87.5 - HYPERKALEMIA (8) Anemia Code(s): D64.9 - ANEMIA, UNSPECIFIED (9) Acute on chronic renal failure Code(s): N17.9 - ACUTE KIDNEY FAILURE, UNSPECIFIED N18.9 - CHRONIC KIDNEY DISEASE, UNSPECIFIED Assessment/Plan CC time spent: 45 minutes
--- NOTE | 2017-03-25 11:59 | PN ---
Teaching Attending Note Name of Resident: Fani Allison ATTENDING PHYSICIAN STATEMENT I saw and evaluated the patient. I reviewed the resident's note and discussed the case with the resident. I agree with the resident's findings and plan as documented. SUBJECTIVE: Pt seen and examined in the ICU. Remains intubated, sedated. Arousable when sedation stopped following commands but very weakly. On levophed and dopamine gtts. OBJECTIVE: Last Vital Signs Temp Pulse Resp BP Pulse Ox 98 F 72 18 116/70 100 03/25/17 10:00 03/25/17 10:37 03/25/17 10:00 03/25/17 10:37 03/25/17 09:00 Intake & Output 03/22/17 03/23/17 03/24/17 03/25/17 23:59 23:59 23:59 23:59 Intake Total 3293.7 5697.6 4330 1750 Output Total 775 1500 1800 400 Balance 2518.7 4197.6 2530 1350 Weight 313 lb 4.8 oz 321 lb 13.998 oz 325 lb 6.4 oz 334 lb 3.532 oz Gen: intubated, sedated Heart: RRR Lung: decreased breath sounds at the bases Abd: soft, nontender Ext: + edema CBC, BMP 03/25/17 05:20 03/25/17 05:20 INR, PTT INR 1.53 (0.82-1.09) H 03/23/17 05:35 Active Medications Amiodarone HCl (Cordarone -) 400 mg PO BID [facility]S [facility]S AT [facility] Stop: 03/25/17 22:01 Last Admin: 03/25/17 10:28 Dose: 400 mg Amiodarone HCl (Cordarone -) 400 mg PO DAILY COUNTS [facility]CLUDE 234 BEDS AT [facility] Atorvastatin Calcium (Lipitor -) 80 mg NGT HS COUNTS [facility]CLUDE 234 BEDS AT [facility] Last Admin: 03/24/17 22:00 Dose: 80 mg Chlorhexidine Gluconate (Hibiclens For Decolonization -) 1 applic TP HS [facility]S [facility]CLUDE 234 BEDS AT [facility] Last Admin: 03/24/17 23:04 Dose: 1 applic Chlorhexidine Gluconate (Peridex -) 15 ml MM BID COUNTS [facility]CLUDE 234 BEDS AT [facility] Last Admin: 03/25/17 10:28 Dose: 15 ml Heparin Sodium (Porcine) (Heparin -) 1,000 unit IVPUSH PRN PRN PRN Reason: Heparin Last Admin: 03/24/17 16:50 Dose: 1,000 unit Heparin Sodium (Porcine) (Heparin -) 5,000 unit IVPUSH PRN PRN PRN Reason: Heparin Hydrocortisone Sodium Succinate (Solu-Cortef -) 100 mg IVPB Q8H-IV SARAH Last Admin: 03/25/17 10:28 Dose: 100 mg Furosemide 100 mg/ Dextrose 100 mls @ 10 mls/hr IVPB TITR SARAH PRN Reason: 10 MG/HR Last Admin: 03/24/17 16:49 Dose: 15 mls/hr Norepinephrine Bitartrate 8, (000 mcg/ Dextrose) 500 mls @ 18.75 mls/hr IV TITR SARAH; 5 MCG/MIN PRN Reason: Protocol Last Admin: 03/25/17 10:37 Dose: 37.5 mls/hr Heparin Sodium (Porcine) 25, (000 unit/ Sodium Chloride) 500 mls @ 20 mls/hr IV TITR SARAH; 1,000 UNIT/HR PRN Reason: Protocol Last Admin: 03/25/17 10:37 Dose: 24 mls/hr Dopamine HCl/Dextrose (Dopamine 400 Mg/D5w -) 250 mls @ 27.375 mls/hr IVPB TITR SARAH; 5 MCG/KG/MIN PRN Reason: Protocol Last Admin: 03/24/17 16:49 Dose: 16.425 mls/hr Propofol (Diprivan -) 100 mls @ 4.38 mls/hr IVPB TITR SARAH; 5 MCG/KG/MIN PRN Reason: Protocol Last Admin: 03/25/17 10:38 Dose: 20 mls/hr Insulin Aspart (Novolog Vial Sliding Scale -) 1 vial SQ ACHS SARAH PRN Reason: Protocol Last Admin: 03/25/17 07:29 Dose: 8 units Metolazone (Zaroxolyn -) 10 mg PO ONCE ONE Stop: 03/25/17 11:01 Pantoprazole Sodium (Protonix 40mg Ivpb (Pre-Docked)) 40 mg IVPB DAILY [facility] Last Admin: 03/25/17 10:28 Dose: 40 mg ASSESSMENT AND PLAN: s/p Vfib Cardiac Arrest Acute on Chronic Hypoxic Respiratory Failure Acute on Chronic Diastolic Heart Failure Severe Pulmonary HTN s/p BiV PPM CAD +Troponins Atrial Fibrillation HTN CKD Hyperlipidemia DM COPD Morbid Obesity Obstructive Sleep Apnea - s/p hypothermia protocol - keep K>4, Mg>2 - continue amiodarone - continue anticoagulation - lasix gtt, continue zaroxolyn - monitor urine output, creatinine - will likely need HD - titrate off dopamine gtt to maintain MAP >65, continue levophed gtt - poor visualization of left hemithorax on bedside ultrasound, will need CT chest when more stable - taper FiO2 to keep SpO2 >90%, decreased Fio2 to 40%, PEEP to 5 - hold sedation to assess mental status - spontaneous breathing trials as tolerated - enteral feeds - DVT/GI prophylaxis - continue ICU monitoring critical care time spent in reviewing chart, evaluating patient and formulating plan 40 min
[2017-03-25] MEDS ORDERED: METOLAZONE 5 MG TABLET PO ONE (12:00)
[2017-03-25] MEDS: DOPAMINE 400 MG/D5W - 250 ML IVPB SCH ×2 (12:22→23:07)
[2017-03-25] MEDS ORDERED: NOREPINEPHRINE BITARTRATE 4 MG/4 ML ML IV ONE ×2 (13:12→23:24)
--- NOTE | 2017-03-25 14:43 | PN ---
Physical Exam: SUBJECTIVE: Patient seen and examined at bedside. No overnight events. Continues to be intubated and sedated. No clinical improvement. However family is more understanding of poor prognosis. OBJECTIVE: Vital Signs Period Temp Pulse Resp BP Sys/Krishnan Pulse Ox Last 24 Hr 97.9 F-98.5 F 70-80 18-29 101-116/48-70 100-100 GENERAL: intubated and sedated HEAD: Normal with no signs of trauma. EYES: pupils reactive to light ENT: ET tube in place NECK: supple. LUNGS: Breath sounds equal, clear to auscultation bilaterally, diminished bibasilar breath sounds. HEART: RRR, S1, S2 without murmur, rub or gallop. ABDOMEN: Obese, hypoactive BS, edema of abdominal wall. Rectal tube in place and draining. EXTREMITIES: 3+ pittiing edema up to abdomen. Chronic changes of lower ext. NEUROLOGICAL: Sedated but opens eyes on command. Moves upper extremities to verbal command. SKIN: Warm, dry, thickened skin on bilat. LE Abnormal Lab Results 03/25/17 03/25/17 03/25/17 05:20 05:20 05:20 RBC 3.55 L Hgb 9.1 L D Hct 28.9 L MCHC 31.5 L RDW 19.4 H PTT (Actin FS) 58.1 H ABG pO2 at Pt Temp ABG O2 Content Sodium 132 L Chloride 93 L BUN 106 H* Creatinine 3.5 H Random Glucose 227 H D Calcium 7.1 L AST 42 H D Total Protein 5.5 L Albumin 2.1 L 03/25/17 07:10 RBC Hgb Hct MCHC RDW PTT (Actin FS) ABG pO2 at Pt Temp 103.0 H ABG O2 Content 13.0 L Sodium Chloride BUN Creatinine Random Glucose Calcium AST Total Protein Albumin Intake & Output 03/22/17 03/23/17 03/24/17 03/25/17 23:59 23:59 23:59 23:59 Intake Total 3293.7 5697.6 4330 2992 Output Total 775 1500 1800 1300 Balance 2518.7 4197.6 2530 1692 Weight 142.11 kg 146 kg 147.599 kg 151.6 kg Active Medications Generic Name Dose Route Start Last Admin Trade Name Freq PRN Reason Stop Dose Admin Amiodarone HCl 400 mg 03/19/17 19:00 03/25/17 10:28 Cordarone - PO 03/25/17 22:01 400 mg BID SARAH Administration Amiodarone HCl 400 mg 03/26/17 10:00 Cordarone - PO DAILY SARAH Atorvastatin Calcium 80 mg 03/18/17 09:45 03/24/17 22:00 Lipitor - NGT 80 mg HS SARAH Administration Chlorhexidine Gluconate 1 applic 03/17/17 22:00 03/24/17 23:04 Hibiclens For Decolonization - TP 1 applic HS SARAH Administration Chlorhexidine Gluconate 15 ml 03/18/17 22:15 03/25/17 10:28 Peridex - MM 15 ml BID SARAH Administration Heparin Sodium (Porcine) 1,000 unit 03/22/17 08:38 03/24/17 16:50 Heparin - IVPUSH 1,000 unit PRN PRN Administration Heparin Heparin Sodium (Porcine) 5,000 unit 03/22/17 08:38 Heparin - IVPUSH PRN PRN Heparin Hydrocortisone Sodium Succinate 100 mg 03/23/17 18:00 03/25/17 10:28 Solu-Cortef - IVPB 100 mg Q8H-IV SARAH Administration Furosemide 100 mg/ Dextrose 100 mls @ 10 mls/hr 03/21/17 13:45 03/24/17 16:49 IVPB 15 mls/hr TITR SARAH Administration 10 MG/HR Norepinephrine Bitartrate 8, 500 mls @ 18.75 mls/hr 03/22/17 08:45 03/25/17 10: 37 000 mcg/ Dextrose IV 37.5 mls/hr TITR SARAH Administration Protocol 5 MCG/MIN Heparin Sodium (Porcine) 25, 500 mls @ 20 mls/hr 03/22/17 08:45 03/25/17 10:37 000 unit/ Sodium Chloride IV 24 mls/hr TITR SARAH Administration Protocol 1,000 UNIT/HR Dopamine HCl/Dextrose 250 mls @ 27.375 mls/hr 03/23/17 12:00 03/25/17 12:22 Dopamine 400 Mg/D5w - IVPB 16.425 mls/hr TITR SARAH Administration Protocol 5 MCG/KG/MIN Propofol 100 mls @ 4.38 mls/hr 03/23/17 12:00 03/25/17 10:38 Diprivan - IVPB 20 mls/hr TITR SARAH Administration Protocol 5 MCG/KG/MIN Insulin Aspart 1 vial 03/24/17 07:00 03/25/17 11:52 Novolog Vial Sliding Scale - SQ 6 units ACHS SARAH Administration Protocol Pantoprazole Sodium 40 mg 03/18/17 10:00 03/25/17 10:28 Protonix 40mg Ivpb (Pre-Docked) IVPB 40 mg DAILY SARAH Administration ASSESSMENT/PLAN: 76 y/o M with signifcant PMHx of CHF, HTN, Afib, and pulmonary HTN admitted from long term s/p cardiac arrest 2/2 vfib admitted to ICU Problem List - Problems (1) Cardiac arrest Assessment/Plan: * Continues to require pressure support. * Currently :Norepinephrine 10mcg/hr and Dopamine @ 5mcg/hr * weaning trial unsuccessful --> sedation vacation--> patient weakly arousable. * Continue Amiodarone 400mg PO BID for one week then 400mg PO daily * Continue ICU monitoring. * very poor prognosis (2) Positive culture findings in sputum Assessment/Plan: * sputum (+) for MRSA * Continue Vancomycin daily with repeat trough * will repeat AM labs. (3) Acute on chronic diastolic CHF (congestive heart failure) Assessment/Plan: * Lasix drip of 10mg/hr * No improvement. * Will obtain renal US r/o obstruction * Most likely from Low perfusion of kidneys. * CXR unchanged from yesterday. * monitor I/O's * daily weights. (4) A-fib Assessment/Plan: * Currently paced * will hold off on AV blockage due to hypotension * Digoxin held due to renal function. (5) Supratherapeutic INR Assessment/Plan: * resolved * Heparin drip for AC. (6) CKD (chronic kidney disease) Assessment/Plan: * worsening Cr however will need to continue Lasix. * Stage 4 GFR 23 * Nephrology consult appreciated. * Metolazone increased to 10mg PO * No acute indication for dialysis today. * Contacted pharmacy to reduce infusion fluids, but not a possibility. * Maintain MAP >65 (7) DVT prophylaxis Assessment/Plan: * Heparin GGT * SCD's bilat. Visit type - Emergency Visit Emergency Visit: Yes ED Registration Date: 03/17/17 Care time: The patient presented to the Emergency Department on the above date and was hospitalized for further evaluation of their emergent condition. - New Patient This patient is new to me today: No - Critical Care Critical Care patient: Yes Total Critical Care Time (in minutes): 45 Critical Care Statement: The care of this patient involved high complexity decision making to prevent further life threatening deterioration of the patient 's condition and/or to evalute & treat vital organ system(s) failure or risk of failure.
[2017-03-25] MEDS: FUROSEMIDE INJECTION 100 MG in DEXTROSE 5%-WATER - 90 ML IVPB SCH (17:01)
[2017-03-25] MEDS: CHLORHEXIDINE GLUCONATE 4% CLEANSER FOR DECOLONIZATION TP SCH (23:06)
[2017-03-25] MEDS: ATORVASTATIN CA 80 MG TABLET (FP) NGT SCH (23:06)
[2017-03-26] MEDS: HYDROCORTISONE SOD SUCCINATE 100 MG/2 ML VIAL IVPB SCH ×3 (02:43→17:47)
[2017-03-26] MEDS ORDERED: FUROSEMIDE 100 MG/10 ML INJECTABLE VIAL ONE ×3 (04:15→14:44)
[2017-03-26 06:29] LABS: MCH 26.1 pg (25.7-33.7); MCHC 32.4 g/dl (32.0-35.9); MEAN CELL VOLUME 80.6 fl (80-96); MEAN PLT VOLUME 8.4 fl (7.5-11.1); PLATELET COUNT 197 K/MM3 (134-434); RDW 19.3 % (11.9-15.9); WHITE BLOOD COUNT 8.8 K/mm3 (4.0-10.0)
[2017-03-26] MEDS: INSULIN SLIDING SCALE (NOVOLOG) 1 VIAL SQ SCH ×4 (06:30→22:49)
[2017-03-26] MEDS: NOREPINEPHRINE BITARTRATE 8,000 MCG in DEXTROSE 5%-WATER - 492 ML IV SCH ×2 (07:00→17:46)
[2017-03-26] MEDS: HEPARIN - 25,000 UNIT in SODIUM CHLORIDE 495 ML IV SCH (07:00)
[2017-03-26 07:33] LABS: ALLENS TEST POSITIVE; ART PUNCT SITE LEFT RADIAL; ARTERIAL BLD GAS O2 SATURATION 94.3 % (90-98.9); ARTERIAL BLOOD GAS BASE EXCESS -0.5 meq/l (-2-2); ARTERIAL BLOOD GAS HCO3 23.7 meq/L (22-26); LPM/O2% 40%; PT. ON O2? YES; TYPE OF O2 VENT
[2017-03-26 07:34] LABS: MECH. VENT. YES; VENT RATE 16; VT/PRESS 380
[2017-03-26 07:35] LABS: ARTERIAL BLOOD GAS PO2 68.6 mmHg (70-100)
[2017-03-26 07:38] LABS: ALBUMIN 2.3 g/dl (3.4-5.0); BILIRUBIN,TOTAL 0.5 mg/dL (0.2-1.0); CALCIUM 7.1 mg/dL (8.5-10.1); CREATININE 3.8 mg/dL (0.7-1.3); MAGNESIUM 3.2 mg/dL (1.8-2.4); PHOSPHOROUS 5.4 mg/dL (2.5-4.9); TOT PROT 5.6 g/dl (6.4-8.2)
[2017-03-26] MEDS: PROPOFOL 100 ML IVPB SCH ×2 (09:24→14:00)
--- NOTE | 2017-03-26 09:57 | PN ---
Teaching Attending Note Name of Resident: Marnie Gibson ATTENDING PHYSICIAN STATEMENT I saw and evaluated the patient. I reviewed the resident's note and discussed the case with the resident. I agree with the resident's findings and plan as documented. SUBJECTIVE: Patient remains in ICU , remains intubated. Unable to wean him off the vent. OBJECTIVE: Vital Signs Temperature 97.3 F L 03/26/17 09:00 Pulse Rate 76 03/26/17 09:00 Respiratory Rate 24 03/26/17 09:00 Blood Pressure 108/72 03/26/17 09:00 O2 Sat by Pulse Oximetry (%) 94 L 03/26/17 07:57 CBCD WBC 8.8 K/mm3 (4.0-10.0) 03/26/17 05:30 RBC 3.55 M/mm3 (4.00-5.60) L 03/26/17 05:30 Hgb 9.3 GM/dL (11.7-16.9) L 03/26/17 05:30 Hct 28.6 % (35.4-49) L 03/26/17 05:30 MCV 80.6 fl (80-96) 03/26/17 05:30 MCHC 32.4 g/dl (32.0-35.9) 03/26/17 05:30 RDW 19.3 % (11.9-15.9) H 03/26/17 05:30 Plt Count 197 K/MM3 (134-434) 03/26/17 05:30 MPV 8.4 fl (7.5-11.1) 03/26/17 05:30 CMP Sodium 131 mmol/L (136-145) L 03/26/17 05:30 Potassium 3.8 mmol/L (3.5-5.1) 03/26/17 05:30 Chloride 91 mmol/L (98-107) L 03/26/17 05:30 Carbon Dioxide 24 mmol/L (21-32) 03/26/17 05:30 Anion Gap 16 (8-16) 03/26/17 05:30 BUN 118 mg/dL (7-18) H* 03/26/17 05:30 Creatinine 3.8 mg/dL (0.7-1.3) H 03/26/17 05:30 Creat Clearance w eGFR 15.48 (>60) 03/26/17 05:30 Random Glucose 206 mg/dL (74-106) H 03/26/17 05:30 Calcium 7.1 mg/dL (8.5-10.1) L 03/26/17 05:30 Total Bilirubin 0.5 mg/dL (0.2-1.0) 03/26/17 05:30 AST 34 U/L (15-37) 03/26/17 05:30 ALT 21 U/L (12-78) 03/26/17 05:30 Alkaline Phosphatase 75 U/L (45-117) 03/26/17 05:30 Total Protein 5.6 g/dl (6.4-8.2) L 03/26/17 05:30 Albumin 2.3 g/dl (3.4-5.0) L 03/26/17 05:30 CARDIAC ENZYMES Creatine Kinase 146 IU/L (39-308) 03/18/17 10:23 Troponin I 0.16 ng/ml (0.00-0.05) H D 03/18/17 10:23 Current Medications Generic Name Dose Route Start Last Admin Trade Name Freq PRN Reason Stop Dose Admin Amiodarone HCl 400 mg 03/26/17 10:00 Cordarone - PO DAILY SARAH Atorvastatin Calcium 80 mg 03/18/17 09:45 03/25/17 23:06 Lipitor - NGT 80 mg HS SARAH Administration Chlorhexidine Gluconate 1 applic 03/17/17 22:00 03/25/17 23:06 Hibiclens For Decolonization - TP 1 applic HS SARAH Administration Chlorhexidine Gluconate 15 ml 03/18/17 22:15 03/25/17 23:06 Peridex - MM 15 ml BID SARAH Administration Heparin Sodium (Porcine) 1,000 unit 03/22/17 08:38 03/24/17 16:50 Heparin - IVPUSH 1,000 unit PRN PRN Administration Heparin Heparin Sodium (Porcine) 5,000 unit 03/22/17 08:38 Heparin - IVPUSH PRN PRN Heparin Hydrocortisone Sodium Succinate 100 mg 03/23/17 18:00 03/26/17 02:43 Solu-Cortef - IVPB 100 mg Q8H-IV SARAH Administration Furosemide 100 mg/ Dextrose 100 mls @ 10 mls/hr 03/21/17 13:45 03/25/17 17:01 IVPB 15 mls/hr TITR SARAH Administration 10 MG/HR Norepinephrine Bitartrate 8, 500 mls @ 18.75 mls/hr 03/22/17 08:45 03/26/17 09: 00 000 mcg/ Dextrose IV 9 mcg/min TITR SARAH Titration Protocol 5 MCG/MIN Heparin Sodium (Porcine) 25, 500 mls @ 20 mls/hr 03/22/17 08:45 03/26/17 07:00 000 unit/ Sodium Chloride IV 24 mls/hr TITR SARAH Administration Protocol 1,000 UNIT/HR Dopamine HCl/Dextrose 250 mls @ 27.375 mls/hr 03/23/17 12:00 03/25/17 23:07 Dopamine 400 Mg/D5w - IVPB 16.425 mls/hr TITR SARAH Administration Protocol 5 MCG/KG/MIN Propofol 100 mls @ 4.38 mls/hr 03/23/17 12:00 03/26/17 09:30 Diprivan - IVPB 0 mcg/kg/min TITR SARAH Titration Protocol 5 MCG/KG/MIN Insulin Aspart 1 vial 03/24/17 07:00 03/26/17 06:30 Novolog Vial Sliding Scale - SQ 6 units ACHS SARAH Administration Protocol Pantoprazole Sodium 40 mg 03/18/17 10:00 03/25/17 10:28 Protonix 40mg Ivpb (Pre-Docked) IVPB 40 mg DAILY SARAH Administration Home Medications Medication Instructions Recorded Allopurinol 300 mg PO DAILY 03/17/17 Digoxin [Lanoxin -] 0.125 mg PO DAILY 03/17/17 Docusate Sodium [Colace -] 300 mg PO HS 03/17/17 Ferrous Sulfate 650 mg PO BID 03/17/17 Furosemide [Lasix -] 80 mg PO DAILY 03/17/17 Latanoprost 0.005% Eye Drops 1 drop OU HS 03/17/17 [Xalatan 0.005% Eye Drops -] Metolazone [Zaroxolyn -] 2.5 mg PO AM 03/17/17 Nystatin Cream [Mycostatin] 1 applic TP BID 03/17/17 Polyethylene Glycol 3350 [Miralax 17 gm PO DAILY 03/17/17 (For Daily Use) -] Sennosides [Evac-U-Gen] 2 tab PO DAILY 03/17/17 Simvastatin [Zocor -] 80 mg PO HS 03/17/17 Sod Lactate/Amm Lact/Pot Lact 1 applic TP BID 03/17/17 [Amlactin Ultra Body Cream] Triamcinolone 0.1% Cream 1 applic TP BID 03/17/17 [Aristocort] Warfarin Na [Coumadin -] 7.5 mg PO Q7D 03/17/17 Warfarin Sodium [Coumadin] 5 mg PO ASDIR 03/17/17 Microbiology 03/23/17 20:40 Blood - Peripheral Venous Blood Culture - Preliminary NO GROWTH OBTAINED AFTER 48 HOURS, INCUBATION TO CONTINUE FOR 3 DAYS. 03/23/17 21:00 Blood - Peripheral Venous Blood Culture - Preliminary NO GROWTH OBTAINED AFTER 48 HOURS, INCUBATION TO CONTINUE FOR 3 DAYS. 03/22/17 11:15 Sputum - Endotrachea Suction/Ventilator Gram Stain - Final 03/22/17 11:15 Sputum - Endotrachea Suction/Ventilator Sputum Culture - Final S Aureus 03/17/17 14:59 Blood - Peripheral Venous Blood Culture - Final NO GROWTH AFTER 5 DAYS INCUBATION 03/17/17 14:55 Blood - Peripheral Venous Blood Culture - Final NO GROWTH AFTER 5 DAYS INCUBATION CXR: Left lung almost complete opacification Generally: Intubated, Anasarca LE: 4 + edema bl ASSESSMENT AND PLAN: 76 y/o man with h/o Severe cardiomypathy( non ischemic ) ,with severely reduced EF, and PULm HTN, Diastolic dysfunction , A fib on AC, who presented with cardiac arrest (V fib ) from his [facility] # S/P cardiac arrest s/p hypothermic protocol: due to severe Right sided cardiomyopathy ,with Severe non-ischemic cardiomypoathy . On levophed and dopamine drip for BP support to continue, to be tapered off slowly , cont Amiodor 400 mg BID x 1 week then 400 daily starting on 03/26 # Acute hypoxic respiratory failure with almost complete left opacification s/p Intubation unable to wean him off: due to cardiac arrest / exacerbation of CHF/ questional PNA on IV antibiotic zosyn and vanco ( sputum with MRSA ). ID on the case follow final sputum cx ,Vent support per ICU team # Acute on chronic systolic and diastolic heart failure on lasix gtt.continue. Will try to reduce the fluid intake by making it double concentration. still in positive fluid balance despite being on lasix gtt. # LEFT Lung ; almost complete opacification discussed with possible HD # A fib: rate is controlled on heparin drip continue # Coumadin coagulopathy: resolved # CKD : Cr slightly increased monitor , renal on the case . DVT px :on AC
[2017-03-26] MEDS ORDERED: AMIODARONE HCL 200 MG TABLET (FP) PO ONE (10:00)
[2017-03-26] MEDS: AMIODARONE HCL 200 MG TABLET (FP) PO SCH (10:16)
[2017-03-26] MEDS: CHLORHEXIDINE GLUCONATE 0.12% 15ML CUP MM SCH ×2 (10:16→21:54)
[2017-03-26] MEDS: PANTOPRAZOLE SODIUM 40 MG/100 ML PRE-DOCKED IVPB SCH (10:17)
--- NOTE | 2017-03-26 11:43 | PN ---
Teaching Attending Note Name of Resident: Fani Allison ATTENDING PHYSICIAN STATEMENT I saw and evaluated the patient. I reviewed the resident's note and discussed the case with the resident. I agree with the resident's findings and plan as documented. SUBJECTIVE: Patient seen and examined in the ICU. Remains intubated and lightly sedated on propofol. Grimaces to noxious stimuli. Remains on levophed (10mcq) and dopamine (3mcq) drips. OBJECTIVE: Intake & Output 03/23/17 03/24/17 03/25/17 03/26/17 23:59 23:59 23:59 23:59 Intake Total 5697.6 4330 3662 2061.2 Output Total 1500 1800 1600 350 Balance 4197.6 2530 2062 1711.2 Weight 321 lb 13.998 oz 325 lb 6.4 oz 334 lb 3.532 oz 336 lb 10.334 oz Last Vital Signs Temp Pulse Resp BP Pulse Ox 97.0 F L 74 26 H 99/51 94 L 03/26/17 10:00 03/26/17 10:00 03/26/17 10:00 03/26/17 10:00 03/26/17 10:00 Active Medications Amiodarone HCl (Cordarone -) 400 mg PO DAILY SARAH Last Admin: 03/26/17 10:16 Dose: 400 mg Atorvastatin Calcium (Lipitor -) 80 mg NGT HS SARAH Last Admin: 03/25/17 23:06 Dose: 80 mg Chlorhexidine Gluconate (Hibiclens For Decolonization -) 1 applic TP HS SARAH Last Admin: 03/25/17 23:06 Dose: 1 applic Chlorhexidine Gluconate (Peridex -) 15 ml MM BID SARAH Last Admin: 03/26/17 10:16 Dose: 15 ml Heparin Sodium (Porcine) (Heparin -) 1,000 unit IVPUSH PRN PRN PRN Reason: Heparin Last Admin: 03/24/17 16:50 Dose: 1,000 unit Heparin Sodium (Porcine) (Heparin -) 5,000 unit IVPUSH PRN PRN PRN Reason: Heparin Hydrocortisone Sodium Succinate (Solu-Cortef -) 100 mg IVPB Q8H-IV SARAH Last Admin: 03/26/17 10:15 Dose: 100 mg Furosemide 100 mg/ Dextrose 100 mls @ 10 mls/hr IVPB TITR SARAH PRN Reason: 10 MG/HR Last Admin: 03/25/17 17:01 Dose: 15 mls/hr Norepinephrine Bitartrate 8, (000 mcg/ Dextrose) 500 mls @ 18.75 mls/hr IV TITR SARAH; 5 MCG/MIN PRN Reason: Protocol Last Titration: 03/26/17 09:00 Dose: 9 mcg/min Heparin Sodium (Porcine) 25, (000 unit/ Sodium Chloride) 500 mls @ 20 mls/hr IV TITR SARAH; 1,000 UNIT/HR PRN Reason: Protocol Last Admin: 03/26/17 07:00 Dose: 24 mls/hr Dopamine HCl/Dextrose (Dopamine 400 Mg/D5w -) 250 mls @ 27.375 mls/hr IVPB TITR SARAH; 5 MCG/KG/MIN PRN Reason: Protocol Last Admin: 03/25/17 23:07 Dose: 16.425 mls/hr Propofol (Diprivan -) 100 mls @ 4.38 mls/hr IVPB TITR SARAH; 5 MCG/KG/MIN PRN Reason: Protocol Last Titration: 03/26/17 09:30 Dose: 0 mcg/kg/min Insulin Aspart (Novolog Vial Sliding Scale -) 1 vial SQ ACHS SARAH PRN Reason: Protocol Last Admin: 03/26/17 06:30 Dose: 6 units Pantoprazole Sodium (Protonix 40mg Ivpb (Pre-Docked)) 40 mg IVPB DAILY SARAH Last Admin: 03/26/17 10:17 Dose: 40 mg Gen: intubated, sedated Heart: RRR Lung: decreased breath sounds at the bases Abd: soft, nontender Ext: + edema Laboratory Results - last 24 hr 03/25/17 03/25/17 03/25/17 11:51 16:56 23:04 WBC RBC Hgb Hct MCV MCHC RDW Plt Count MPV PTT (Actin FS) Puncture Site ABG pH ABG pCO2 at Pt Temp ABG pO2 at Pt Temp ABG HCO3 ABG O2 Sat (Measured) ABG O2 Content ABG Base Excess Brian Test O2 Delivery Device Oxygen Flow Rate Vent Mode Vent Rate Mechanical Rate PEEP Pressure Support Vent Sodium Potassium Chloride Carbon Dioxide Anion Gap BUN Creatinine Creat Clearance w eGFR POC Glucometer [phone] 253.73787 Random Glucose Calcium Phosphorus Magnesium Total Bilirubin AST ALT Alkaline Phosphatase Total Protein Albumin Random Vancomycin 03/26/17 03/26/17 03/26/17 05:27 05:30 05:30 WBC 8.8 RBC 3.55 L Hgb 9.3 L Hct 28.6 L MCV 80.6 MCHC 32.4 RDW 19.3 H Plt Count 197 MPV 8.4 PTT (Actin FS) 68.1 H Puncture Site ABG pH ABG pCO2 at Pt Temp ABG pO2 at Pt Temp ABG HCO3 ABG O2 Sat (Measured) ABG O2 Content ABG Base Excess Brian Test O2 Delivery Device Oxygen Flow Rate Vent Mode Vent Rate Mechanical Rate PEEP Pressure Support Vent Sodium Potassium Chloride Carbon Dioxide Anion Gap BUN Creatinine Creat Clearance w eGFR POC Glucometer [phone] Random Glucose Calcium Phosphorus Magnesium Total Bilirubin AST ALT Alkaline Phosphatase Total Protein Albumin Random Vancomycin 03/26/17 03/26/17 03/26/17 05:30 07:15 10:00 WBC RBC Hgb Hct MCV MCHC RDW Plt Count MPV PTT (Actin FS) Puncture Site Left radial ABG pH 7.40 ABG pCO2 at Pt Temp 39.1 ABG pO2 at Pt Temp 68.6 L D ABG HCO3 23.7 ABG O2 Sat (Measured) 94.3 ABG O2 Content 14.4 L ABG Base Excess -0.5 Brian Test Positive O2 Delivery Device Vent Oxygen Flow Rate 40% Vent Mode A/c Vent Rate 16 Mechanical Rate Yes PEEP 5.0 Pressure Support Vent 380 Sodium 131 L Potassium 3.8 Chloride 91 L Carbon Dioxide 24 Anion Gap 16 BUN 118 H* Creatinine 3.8 H Creat Clearance w eGFR 15.48 POC Glucometer Random Glucose 206 H Calcium 7.1 L Phosphorus 5.4 H Magnesium 3.2 H Total Bilirubin 0.5 AST 34 ALT 21 Alkaline Phosphatase 75 Total Protein 5.6 L Albumin 2.3 L Random Vancomycin 17.435 CXR: increasing effusions ASSESSMENT AND PLAN: s/p Vfib Cardiac Arrest Acute on Chronic Hypoxic Respiratory Failure Acute on Chronic Diastolic Heart Failure Severe Pulmonary HTN s/p BiV PPM CAD +Troponins Atrial Fibrillation HTN CKD Hyperlipidemia DM COPD Morbid Obesity Obstructive Sleep Apnea - s/p hypothermia protocol - keep K>4, Mg>2 - Amiodarone - AC - Lasix gtt, continue zaroxolyn - Monitor urine output, creatinine - Ongoing will likely need HD - titrate off dopamine gtt to maintain MAP >65, continue levophed gtt - taper FiO2 to keep SpO2 >90%, decreased Fio2 to 40%, PEEP to 5 - hold sedation to assess mental status - spontaneous breathing trials as tolerated - enteral feeds - DVT/GI prophylaxis - Will likely need Trach early next week Dr Gomez critical care time spent in reviewing chart, evaluating patient and formulating plan 40 min
[2017-03-26] MEDS ORDERED: HEMOQUE TEST 1 EACH EACH ONE (12:08)
--- NOTE | 2017-03-26 12:44 | PN ---
Progress Note (short form) - Note Progress Note: Renal Follow up for SUJATA/Fluid overload Pt seen and examined in the ICU awake off sedation on Levophed and Dopamine good urine output but remains net positive daughter and at the bedside on lasix gtt Vital Signs Temperature 97.0 F L 03/26/17 10:00 Pulse Rate 74 03/26/17 10:00 Respiratory Rate 20 03/26/17 12:26 Blood Pressure 99/51 03/26/17 10:00 O2 Sat by Pulse Oximetry (%) 94 L 03/26/17 10:00 Intake & Output 03/23/17 03/24/17 03/25/17 03/26/17 23:59 23:59 23:59 23:59 Intake Total 5697.6 4330 3662 2061.2 Output Total 1500 1800 1600 350 Balance 4197.6 2530 2062 1711.2 Weight 321 lb 13.998 oz 325 lb 6.4 oz 334 lb 3.532 oz 336 lb 10.334 oz Gen: on Vent, awake CVS: RRR, No M/R Lungs: DEC BS throughout the lung ortiz, no rales Abd: soft, Obese, ND Ext: 2+ edema in LE, no cyanosis, warm ext : Ridley in place CBC, BMP 03/26/17 05:30 03/26/17 05:30 Laboratory Tests 03/26/17 05:30 Calcium 7.1 L Phosphorus 5.4 H Magnesium 3.2 H Albumin 2.3 L Current Medications Amiodarone HCl (Cordarone -) 400 mg PO DAILY [facility] Last Admin: 03/26/17 10:16 Dose: 400 mg Atorvastatin Calcium (Lipitor -) 80 mg NGT HS [facility] Last Admin: 03/25/17 23:06 Dose: 80 mg Chlorhexidine Gluconate (Hibiclens For Decolonization -) 1 applic TP HS [facility] Last Admin: 03/25/17 23:06 Dose: 1 applic Chlorhexidine Gluconate (Peridex -) 15 ml MM BID [facility] Last Admin: 03/26/17 10:16 Dose: 15 ml Heparin Sodium (Porcine) (Heparin -) 1,000 unit IVPUSH PRN PRN PRN Reason: Heparin Last Admin: 03/24/17 16:50 Dose: 1,000 unit Heparin Sodium (Porcine) (Heparin -) 5,000 unit IVPUSH PRN PRN PRN Reason: Heparin Hydrocortisone Sodium Succinate (Solu-Cortef -) 100 mg IVPB Q8H-IV SARAH Last Admin: 03/26/17 10:15 Dose: 100 mg Furosemide 100 mg/ Dextrose 100 mls @ 10 mls/hr IVPB TITR SARAH PRN Reason: 10 MG/HR Last Admin: 03/25/17 17:01 Dose: 15 mls/hr Norepinephrine Bitartrate 8, (000 mcg/ Dextrose) 500 mls @ 18.75 mls/hr IV TITR SARAH; 5 MCG/MIN PRN Reason: Protocol Last Titration: 03/26/17 09:00 Dose: 9 mcg/min Heparin Sodium (Porcine) 25, (000 unit/ Sodium Chloride) 500 mls @ 20 mls/hr IV TITR SARAH; 1,000 UNIT/HR PRN Reason: Protocol Last Admin: 03/26/17 07:00 Dose: 24 mls/hr Dopamine HCl/Dextrose (Dopamine 400 Mg/D5w -) 250 mls @ 27.375 mls/hr IVPB TITR SARAH; 5 MCG/KG/MIN PRN Reason: Protocol Last Admin: 03/25/17 23:07 Dose: 16.425 mls/hr Propofol (Diprivan -) 100 mls @ 4.38 mls/hr IVPB TITR SARAH; 5 MCG/KG/MIN PRN Reason: Protocol Last Titration: 03/26/17 09:30 Dose: 0 mcg/kg/min Insulin Aspart (Novolog Vial Sliding Scale -) 1 vial SQ ACHS SARAH PRN Reason: Protocol Last Admin: 03/26/17 12:38 Dose: 6 units Pantoprazole Sodium (Protonix 40mg Ivpb (Pre-Docked)) 40 mg IVPB DAILY SARAH Last Admin: 03/26/17 10:17 Dose: 40 mg A/P 76 year old Gentleman with PMhx of CKD, CHF, Hypertension, Afib, Obesity, Prostate Ca who presented s/p cardiac arrest with SUJATA and Volume overload #Non-Oliguric Acute on Chronic renal insufficiency with volume overload Etiology of SUJATA likely ATN in setting of Cardiac arrest renal function with slow deterioration BUN very high but likely related to steroids in addition to renal failure No acute indications for dialysis (hyperkalemia, acidosis) Will need increased diuretics as pt is net positive I and O Increase Lasix gtt to 20mg/Hr and Give metolazone 20mg via GT today if pt does not achieve significantly improved diuretic response will plan for dialysis and UF tomorrow to manage volume status Dose all meds for Cr Cl less then 15 #Hyponatremia from fluid overload stable continue diuretics at this time #Shock/Resp Failure management as per ICU keep MAP > 65 titrate pressers as per ICU Thank you Garry Drew DO
--- NOTE | 2017-03-26 13:08 | PN ---
Progress Note, Physician Chief Complaint: Pt's and daugther are at bedside; they say he has been responding to them all morning, with eye contact, squeezing with right hand, and alert and reactive to verbal queries. He has now received Propafol, and does not open his eyes or otherwise respond. 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, who was brought in to ER s/p Cardiac arrest. As per EMS, the patient was initially seated in PT doing leg exercises when he became unresponsive. Patient was brought back into his room in the [place] and chest compressions were initiated by nursing staff. Down time was between 4- 5 minutes. patient was shocked once and ROSC was noted. As per EMS, patient was given 150 mg of Amiodarone in the field and was brought into the ED for further evaluation. Upon arrival to the ED, patients (health care proxy) gave consent to intubate over the telephone. 2:48 PM- 20 mg of Etomidate given through IV 2:49 PM- 150 mg of Succinylcholine given through IV 2:50 PM- Patient intubated with 7.5 ET tube, positioned 24 cm at the lip Pt's says pt is followed closely by [facility] and cardiac groups. I spoke by telephone with pt's solar panel installer, who provided much of the above history. - Current Medication List Current Medications: Active Medications Amiodarone HCl (Cordarone -) 400 mg PO DAILY [facility] Last Admin: 03/26/17 10:16 Dose: 400 mg Atorvastatin Calcium (Lipitor -) [address] [facility] Last Admin: 03/25/17 23:06 Dose: 80 mg Chlorhexidine Gluconate (Hibiclens For Decolonization -) [address] [facility] Last Admin: 03/25/17 23:06 Dose: 1 applic Chlorhexidine Gluconate (Peridex -) 15 ml MM BID SARAH Last Admin: 03/26/17 10:16 Dose: 15 ml Heparin Sodium (Porcine) (Heparin -) 1,000 unit IVPUSH PRN PRN PRN Reason: Heparin Last Admin: 03/24/17 16:50 Dose: 1,000 unit Heparin Sodium (Porcine) (Heparin -) 5,000 unit IVPUSH PRN PRN PRN Reason: Heparin Hydrocortisone Sodium Succinate (Solu-Cortef -) 100 mg IVPB Q8H-IV SARAH Last Admin: 03/26/17 10:15 Dose: 100 mg Furosemide 100 mg/ Dextrose 100 mls @ 10 mls/hr IVPB TITR SARAH PRN Reason: 10 MG/HR Last Admin: 03/25/17 17:01 Dose: 15 mls/hr Norepinephrine Bitartrate 8, (000 mcg/ Dextrose) 500 mls @ 18.75 mls/hr IV TITR SARAH; 5 MCG/MIN PRN Reason: Protocol Last Titration: 03/26/17 09:00 Dose: 9 mcg/min Heparin Sodium (Porcine) 25, (000 unit/ Sodium Chloride) 500 mls @ 20 mls/hr IV TITR SARAH; 1,000 UNIT/HR PRN Reason: Protocol Last Admin: 03/26/17 07:00 Dose: 24 mls/hr Dopamine HCl/Dextrose (Dopamine 400 Mg/D5w -) 250 mls @ 27.375 mls/hr IVPB TITR SARAH; 5 MCG/KG/MIN PRN Reason: Protocol Last Admin: 03/25/17 23:07 Dose: 16.425 mls/hr Propofol (Diprivan -) 100 mls @ 4.38 mls/hr IVPB TITR SARAH; 5 MCG/KG/MIN PRN Reason: Protocol Last Titration: 03/26/17 09:30 Dose: 0 mcg/kg/min Insulin Aspart (Novolog Vial Sliding Scale -) 1 vial SQ ACHS SARAH PRN Reason: Protocol Last Admin: 03/26/17 12:38 Dose: 6 units Metolazone (Zaroxolyn -) 20 mg PO ONCE ONE Stop: 03/26/17 12:45 Pantoprazole Sodium (Protonix 40mg Ivpb (Pre-Docked)) 40 mg IVPB DAILY SARAH Last Admin: 03/26/17 10:17 Dose: 40 mg - Objective Vital Signs: Vital Signs Temperature 97.0 F L 03/26/17 10:00 Pulse Rate 74 03/26/17 12:00 Respiratory Rate 20 03/26/17 12:26 Blood Pressure 106/63 03/26/17 12:00 O2 Sat by Pulse Oximetry (%) 94 L 03/26/17 10:00 Constitutional: Yes: Obese Eyes: Yes: WNL, Other HENT: Yes: Other Neck: Yes: Decreased ROM Cardiovascular: Yes: Pulse Irregular Respiratory: Yes: Mechanically Ventilated Gastrointestinal: Yes: Soft, Abdomen, Obese Genitourinary: No: Anuria Breast(s): Yes: WNL Musculoskeletal: Yes: Muscle Weakness Extremities: Yes: Cool Edema: Yes Edema: LLE: 2+, RLE: 2+ Peripheral Pulses WNL: No Peripheral Pulses: Left Doralis Pedis: 1+, Right Dorsalis Pedis: 1+ Integumentary: Yes: Venous Stasis Changes Neurological: Yes: Weakness Labs: CBC, BMP 03/26/17 05:30 03/26/17 05:30 INR, PTT INR 1.53 (0.82-1.09) H 03/23/17 05:35 Abnormal Lab Results 03/26/17 03/26/17 03/26/17 05:30 05:30 05:30 RBC 3.55 L Hgb 9.3 L Hct 28.6 L RDW 19.3 H PTT (Actin FS) 68.1 H ABG pO2 at Pt Temp ABG O2 Content Sodium 131 L Chloride 91 L BUN 118 H* Creatinine 3.8 H Random Glucose 206 H Calcium 7.1 L Phosphorus 5.4 H Magnesium 3.2 H Total Protein 5.6 L Albumin 2.3 L 03/26/17 07:15 RBC Hgb Hct RDW PTT (Actin FS) ABG pO2 at Pt Temp 68.6 L D ABG O2 Content 14.4 L Sodium Chloride BUN Creatinine Random Glucose Calcium Phosphorus Magnesium Total Protein Albumin - ....Imaging Chest X-ray: Image Reviewed (remains with virtual whiteout of left hemithorax) Problem List - Problems (1) Cardiac arrest Assessment/Plan: Remains intubated (virtual whiteout of left hemithorax remains). Now on PO amiodarone. On dopamine; norepinephrine dose reduced; off vasopressin. F/u Is and Os, respiratory response to IV furosemide (dose increased, and metolazone added). Maintain K 4-4.5, Mg 2-2.3. Pt's condition was discussed with pt's and daughter (Doreen-raghu?). May be started on hemodialysis in the morning if above agents do not improve fluid removal. Code(s): I46.9 - CARDIAC ARREST, CAUSE UNSPECIFIED (2) Acute on chronic diastolic CHF (congestive heart failure) Assessment/Plan: see under "cardiac arrest'. Code(s): I50.33 - ACUTE ON CHRONIC DIASTOLIC (CONGESTIVE) HEART FAILURE (3) Hyperlipidemia Assessment/Plan: high-dose statin. Code(s): E78.5 - HYPERLIPIDEMIA, UNSPECIFIED (4) Sleep apnea Code(s): G47.30 - SLEEP APNEA, UNSPECIFIED (5) HTN (hypertension) Code(s): I10 - ESSENTIAL (PRIMARY) HYPERTENSION (6) 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 hypertension Assessment/Plan: Hx COPD; severe RV failure. White-out of left lung. F/u Is and Os. Intubated. F/u with db2 developer. Code(s): I27.2 - OTHER SECONDARY PULMONARY HYPERTENSION (7) Hyperkalemia Assessment/Plan: f/u electrolytes closely (K, Mg, and PO4 initially elevated); may undergo hemodialysis tomorrow. Code(s): E87.5 - HYPERKALEMIA (8) Anemia Code(s): D64.9 - ANEMIA, UNSPECIFIED (9) Acute on chronic renal failure Code(s): N17.9 - ACUTE KIDNEY FAILURE, UNSPECIFIED N18.9 - CHRONIC KIDNEY DISEASE, UNSPECIFIED
[2017-03-26] MEDS ORDERED: METOLAZONE 5 MG TABLET PO ONE (13:30)
[2017-03-26] MEDS: DOPAMINE 400 MG/D5W - 250 ML IVPB SCH (13:45)
[2017-03-26] MEDS: FUROSEMIDE INJECTION 100 MG in DEXTROSE 5%-WATER - 90 ML IVPB SCH ×2 (14:41→19:56)
--- NOTE | 2017-03-26 15:49 | PN ---
Physical Exam: SUBJECTIVE: Patient seen and examined. He is still intubated and sedated. OBJECTIVE: Vital Signs Period Temp Pulse Resp BP Sys/Krishnan Pulse Ox Last 24 Hr 97.0 F-98.9 F 66-78 14-27 95-119/45-72 93-98 GENERAL: The patient is sedated, on mech ventilation. HEAD: Normal with no signs of trauma. EYES: PERRL, sclera anicteric, conjunctiva clear. ENT: moist mucous membranes. NECK: Trachea midline, full range of motion, supple. LUNGS: Breath sounds equal, coarse breath sounds bilaterally, no crackles, no accessory muscle use. HEART: Regular rate and rhythm, S1, S2 without murmur, rub or gallop. ABDOMEN: Soft, nontender, nondistended, normoactive bowel sounds, no guarding, no rebound, no masses. EXTREMITIES: 2+ pulses, warm, 2+ edema in LE and abdomen. NEUROLOGICAL: No facial asymmetry, following commands, motor 1/5 in all extremities, gait not observed, sedated. PSYCH: Sedated. Ridley cath, draining. Rectal tube inserted. Laboratory Results - last 24 hr 03/25/17 03/25/17 03/26/17 16:56 23:04 05:27 WBC RBC Hgb Hct MCV MCHC RDW Plt Count MPV PTT (Actin FS) Puncture Site ABG pH ABG pCO2 at Pt Temp ABG pO2 at Pt Temp ABG HCO3 ABG O2 Sat (Measured) ABG O2 Content ABG Base Excess Brian Test O2 Delivery Device Oxygen Flow Rate Vent Mode Vent Rate Mechanical Rate PEEP Pressure Support Vent Sodium Potassium Chloride Carbon Dioxide Anion Gap BUN Creatinine Creat Clearance w eGFR POC Glucometer 240.38678 253.43921 253.32419 Random Glucose Calcium Phosphorus Magnesium Total Bilirubin AST ALT Alkaline Phosphatase Total Protein Albumin Random Vancomycin 03/26/17 03/26/17 03/26/17 05:30 05:30 05:30 WBC 8.8 RBC 3.55 L Hgb 9.3 L Hct 28.6 L MCV 80.6 MCHC 32.4 RDW 19.3 H Plt Count 197 MPV 8.4 PTT (Actin FS) 68.1 H Puncture Site ABG pH ABG pCO2 at Pt Temp ABG pO2 at Pt Temp ABG HCO3 ABG O2 Sat (Measured) ABG O2 Content ABG Base Excess Brian Test O2 Delivery Device Oxygen Flow Rate Vent Mode Vent Rate Mechanical Rate PEEP Pressure Support Vent Sodium 131 L Potassium 3.8 Chloride 91 L Carbon Dioxide 24 Anion Gap 16 BUN 118 H* Creatinine 3.8 H Creat Clearance w eGFR 15.48 POC Glucometer Random Glucose 206 H Calcium 7.1 L Phosphorus 5.4 H Magnesium 3.2 H Total Bilirubin 0.5 AST 34 ALT 21 Alkaline Phosphatase 75 Total Protein 5.6 L Albumin 2.3 L Random Vancomycin 03/26/17 03/26/17 03/26/17 07:15 10:00 12:11 WBC RBC Hgb Hct MCV MCHC RDW Plt Count MPV PTT (Actin FS) Puncture Site Left radial ABG pH 7.40 ABG pCO2 at Pt Temp 39.1 ABG pO2 at Pt Temp 68.6 L D ABG HCO3 23.7 ABG O2 Sat (Measured) 94.3 ABG O2 Content 14.4 L ABG Base Excess -0.5 Brian Test Positive O2 Delivery Device Vent Oxygen Flow Rate 40% Vent Mode A/c Vent Rate 16 Mechanical Rate Yes PEEP 5.0 Pressure Support Vent 380 Sodium Potassium Chloride Carbon Dioxide Anion Gap BUN Creatinine Creat Clearance w eGFR POC Glucometer 255.45774 Random Glucose Calcium Phosphorus Magnesium Total Bilirubin AST ALT Alkaline Phosphatase Total Protein Albumin Random Vancomycin 17.435 Active Medications Generic Name Dose Route Start Last Admin Trade Name Freq PRN Reason Stop Dose Admin Amiodarone HCl 400 mg 03/26/17 10:00 03/26/17 10:16 Cordarone - PO 400 mg DAILY SARAH Administration Atorvastatin Calcium 80 mg 03/18/17 09:45 03/25/17 23:06 Lipitor - NGT 80 mg HS SARAH Administration Chlorhexidine Gluconate 1 applic 03/17/17 22:00 03/25/17 23:06 Hibiclens For Decolonization - TP 1 applic HS SARAH Administration Chlorhexidine Gluconate 15 ml 03/18/17 22:15 03/26/17 10:16 Peridex - MM 15 ml BID SARAH Administration Heparin Sodium (Porcine) 1,000 unit 03/22/17 08:38 03/24/17 16:50 Heparin - IVPUSH 1,000 unit PRN PRN Administration Heparin Heparin Sodium (Porcine) 5,000 unit 03/22/17 08:38 Heparin - IVPUSH PRN PRN Heparin Hydrocortisone Sodium Succinate 100 mg 03/23/17 18:00 03/26/17 10:15 Solu-Cortef - IVPB 100 mg Q8H-IV SARAH Administration Furosemide 100 mg/ Dextrose 100 mls @ 10 mls/hr 03/21/17 13:45 03/26/17 14:41 IVPB 15 mls/hr TITR SARAH Administration 10 MG/HR Norepinephrine Bitartrate 8, 500 mls @ 18.75 mls/hr 03/22/17 08:45 03/26/17 09: 00 000 mcg/ Dextrose IV 9 mcg/min TITR SARAH Titration Protocol 5 MCG/MIN Heparin Sodium (Porcine) 25, 500 mls @ 20 mls/hr 03/22/17 08:45 03/26/17 07:00 000 unit/ Sodium Chloride IV 24 mls/hr TITR SARAH Administration Protocol 1,000 UNIT/HR Dopamine HCl/Dextrose 250 mls @ 27.375 mls/hr 03/23/17 12:00 03/26/17 14:00 Dopamine 400 Mg/D5w - IVPB 2 mcg/kg/min TITR SARAH Titration Protocol 5 MCG/KG/MIN Propofol 100 mls @ 4.38 mls/hr 03/23/17 12:00 03/26/17 09:30 Diprivan - IVPB 0 mcg/kg/min TITR SARAH Titration Protocol 5 MCG/KG/MIN Insulin Aspart 1 vial 03/24/17 07:00 03/26/17 12:38 Novolog Vial Sliding Scale - SQ 6 units ACHS SARAH Administration Protocol Pantoprazole Sodium 40 mg 03/18/17 10:00 03/26/17 10:17 Protonix 40mg Ivpb (Pre-Docked) IVPB 40 mg DAILY SARAH Administration Microbiology 03/22/17 11:15 Sputum - Endotrachea Suction/Ventilator Gram Stain - Final 03/22/17 11:15 Sputum - Endotrachea Suction/Ventilator Sputum Culture - Preliminary Mr S Aureus 03/17/17 14:59 Blood - Peripheral Venous Blood Culture - Final NO GROWTH AFTER 5 DAYS INCUBATION 03/17/17 14:55 Blood - Peripheral Venous Blood Culture - Final NO GROWTH AFTER 5 DAYS INCUBATION Echocardiogram showing right ventricular dysfunction and severe tricuspid regurgitation. ASSESSMENT/PLAN: 76 year old male w/ a significant PMH of diastolic CHF,biventricular pacemaker, COPD, HTN, HLD, Atrial Fibrillation, renal insufficiency, morbid obesity, Prostate CA, Sleep apnea on O2, generalized weakness (wheelchair-bound), Glaucoma BIBA from [facility] s/p Cardiac arrest due to V.Fib. Neuro: -on CPAP -sedated, on [facility] ventilation, FiO2 decreassed to 40% CVS: Cardiac arrest: pacemaker interrogation showed Vfib, vacation sedation, Propofol 5 mcg/KG/MIN stopped Pressors: Dopamine at rate 5 mcg/kg/min will be DC today and Norepinephrine decreased continue ventilatory support f/u ABG tomorrow now on PO amiodarone 400 mg qd furosemide increased and Metolazone increased added Metolazone 5 mg today again HTN: hold antihypertensives for now as patient is on dopamine Non ischemic CAD/Non ischemic cardiomyopathy: cont Lipitor Afib: INR supratherapeutic hold coumadin for now Digoxin if HR increases Digoxin level within range HLD: lipitor 80mg HS ID: -MRSA sputum -Vanco level ordered this AM -blood cultures pending Pulm: COPD: on home oxygen PRN continue ventilatory support for now broncho dilators Obstructive Sleep Apnea: on vent for now Renal: CKD stage 3: at baseline renally dose all medications monitor Cr Endo: Hyperglycemia: A1C 6.4 Insulin sliding scale FEN: keep net negative fluid balance. Ager Tender consulted for tube feeds, will continue Glucerna 1.5, tube feeding decreased 45. tube feeds PPx: INR supratherapeutic, Protonix Dispo: continue ICU monitor. Discussed with , full code. Problem List - Problems (1) A-fib Code(s): I48.91 - UNSPECIFIED ATRIAL FIBRILLATION Qualifiers: Qualified Code(s): I48.91 - Unspecified atrial fibrillation (2) Acute on chronic diastolic CHF (congestive heart failure) Code(s): I50.33 - ACUTE ON CHRONIC DIASTOLIC (CONGESTIVE) HEART FAILURE (3) Anemia Code(s): D64.9 - ANEMIA, UNSPECIFIED (4) CKD (chronic kidney disease) Code(s): N18.9 - CHRONIC KIDNEY DISEASE, UNSPECIFIED Qualifiers: Qualified Code(s): N18.4 - Chronic kidney disease, stage 4 (severe) (5) Cardiac arrest Code(s): I46.9 - CARDIAC ARREST, CAUSE UNSPECIFIED (6) DVT prophylaxis Code(s): [id number] - (7) HTN (hypertension) Code(s): I10 - ESSENTIAL (PRIMARY) HYPERTENSION (8) Hyperkalemia Code(s): E87.5 - HYPERKALEMIA (9) Hyperlipidemia Code(s): E78.5 - HYPERLIPIDEMIA, UNSPECIFIED (10) 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 hypertension Code(s): I27.2 - OTHER SECONDARY PULMONARY HYPERTENSION (11) Sleep apnea Code(s): G47.30 - SLEEP APNEA, UNSPECIFIED Visit type - Emergency Visit Emergency Visit: Yes ED Registration Date: 03/17/17 Care time: The patient presented to the Emergency Department on the above date and was hospitalized for further evaluation of their emergent condition. - New Patient This patient is new to me today: No - Critical Care Critical Care patient: Yes Total Critical Care Time (in minutes): 50 Critical Care Statement: The care of this patient involved high complexity decision making to prevent further life threatening deterioration of the patient 's condition and/or to evalute & treat vital organ system(s) failure or risk of failure.
--- NOTE | 2017-03-26 16:23 | PN ---
Physical Exam: SUBJECTIVE: Patient seen and examined at bedside. No overnight events. Continues to be intubated and sedated. OBJECTIVE: Vital Signs Period Temp Pulse Resp BP Sys/Krishnan Pulse Ox Last 24 Hr 97.0 F-98.9 F 66-78 14-27 96-119/45-72 93-98 GENERAL: intubated and sedated HEAD: Normal with no signs of trauma. EYES: pupils reactive to light ENT: ET tube in place NECK: supple. LUNGS: Breath sounds equal, clear to auscultation bilaterally, diminished bibasilar breath sounds. HEART: RRR, S1, S2 without murmur, rub or gallop. ABDOMEN: Obese, hypoactive BS, edema of abdominal wall. Rectal tube in place and draining. EXTREMITIES: 3+ pittiing edema up to abdomen. Chronic changes of lower ext. NEUROLOGICAL: Sedated but opens eyes on command. Moves upper extremities to verbal command. SKIN: Warm, dry, thickened skin on bilat. LE Laboratory Results - last 24 hr 03/25/17 03/25/17 03/26/17 16:56 23:04 05:27 WBC RBC Hgb Hct MCV MCHC RDW Plt Count MPV PTT (Actin FS) Puncture Site ABG pH ABG pCO2 at Pt Temp ABG pO2 at Pt Temp ABG HCO3 ABG O2 Sat (Measured) ABG O2 Content ABG Base Excess Brian Test O2 Delivery Device Oxygen Flow Rate Vent Mode Vent Rate Mechanical Rate PEEP Pressure Support Vent Sodium Potassium Chloride Carbon Dioxide Anion Gap BUN Creatinine Creat Clearance w eGFR POC Glucometer 240.21072 253.26112 253.85254 Random Glucose Calcium Phosphorus Magnesium Total Bilirubin AST ALT Alkaline Phosphatase Total Protein Albumin Random Vancomycin 03/26/17 03/26/17 03/26/17 05:30 05:30 05:30 WBC 8.8 RBC 3.55 L Hgb 9.3 L Hct 28.6 L MCV 80.6 MCHC 32.4 RDW 19.3 H Plt Count 197 MPV 8.4 PTT (Actin FS) 68.1 H Puncture Site ABG pH ABG pCO2 at Pt Temp ABG pO2 at Pt Temp ABG HCO3 ABG O2 Sat (Measured) ABG O2 Content ABG Base Excess Brian Test O2 Delivery Device Oxygen Flow Rate Vent Mode Vent Rate Mechanical Rate PEEP Pressure Support Vent Sodium 131 L Potassium 3.8 Chloride 91 L Carbon Dioxide 24 Anion Gap 16 BUN 118 H* Creatinine 3.8 H Creat Clearance w eGFR 15.48 POC Glucometer Random Glucose 206 H Calcium 7.1 L Phosphorus 5.4 H Magnesium 3.2 H Total Bilirubin 0.5 AST 34 ALT 21 Alkaline Phosphatase 75 Total Protein 5.6 L Albumin 2.3 L Random Vancomycin 03/26/17 03/26/17 03/26/17 07:15 10:00 12:11 WBC RBC Hgb Hct MCV MCHC RDW Plt Count MPV PTT (Actin FS) Puncture Site Left radial ABG pH 7.40 ABG pCO2 at Pt Temp 39.1 ABG pO2 at Pt Temp 68.6 L D ABG HCO3 23.7 ABG O2 Sat (Measured) 94.3 ABG O2 Content 14.4 L ABG Base Excess -0.5 Brian Test Positive O2 Delivery Device Vent Oxygen Flow Rate 40% Vent Mode A/c Vent Rate 16 Mechanical Rate Yes PEEP 5.0 Pressure Support Vent 380 Sodium Potassium Chloride Carbon Dioxide Anion Gap BUN Creatinine Creat Clearance w eGFR POC Glucometer 255.95937 Random Glucose Calcium Phosphorus Magnesium Total Bilirubin AST ALT Alkaline Phosphatase Total Protein Albumin Random Vancomycin 17.435 Active Medications Generic Name Dose Route Start Last Admin Trade Name Freq PRN Reason Stop Dose Admin Amiodarone HCl 400 mg 03/26/17 10:00 03/26/17 10:16 Cordarone - PO 400 mg DAILY SARAH Administration Atorvastatin Calcium 80 mg 03/18/17 09:45 03/25/17 23:06 Lipitor - NGT 80 mg HS SARAH Administration Chlorhexidine Gluconate 1 applic 03/17/17 22:00 03/25/17 23:06 Hibiclens For Decolonization - TP 1 applic HS SARAH Administration Chlorhexidine Gluconate 15 ml 03/18/17 22:15 03/26/17 10:16 Peridex - MM 15 ml BID SARAH Administration Heparin Sodium (Porcine) 1,000 unit 03/22/17 08:38 03/24/17 16:50 Heparin - IVPUSH 1,000 unit PRN PRN Administration Heparin Heparin Sodium (Porcine) 5,000 unit 03/22/17 08:38 Heparin - IVPUSH PRN PRN Heparin Hydrocortisone Sodium Succinate 100 mg 03/23/17 18:00 03/26/17 10:15 Solu-Cortef - IVPB 100 mg Q8H-IV SARAH Administration Furosemide 100 mg/ Dextrose 100 mls @ 10 mls/hr 03/21/17 13:45 03/26/17 14:41 IVPB 15 mls/hr TITR SARAH Administration 10 MG/HR Norepinephrine Bitartrate 8, 500 mls @ 18.75 mls/hr 03/22/17 08:45 03/26/17 09: 00 000 mcg/ Dextrose IV 9 mcg/min TITR SARAH Titration Protocol 5 MCG/MIN Heparin Sodium (Porcine) 25, 500 mls @ 20 mls/hr 03/22/17 08:45 03/26/17 07:00 000 unit/ Sodium Chloride IV 24 mls/hr TITR SARAH Administration Protocol 1,000 UNIT/HR Dopamine HCl/Dextrose 250 mls @ 27.375 mls/hr 03/23/17 12:00 03/26/17 14:00 Dopamine 400 Mg/D5w - IVPB 2 mcg/kg/min TITR SARAH Titration Protocol 5 MCG/KG/MIN Propofol 100 mls @ 4.38 mls/hr 03/23/17 12:00 03/26/17 14:00 Diprivan - IVPB 17.52 mls/hr TITR SARAH Administration Protocol 5 MCG/KG/MIN Insulin Aspart 1 vial 03/24/17 07:00 03/26/17 12:38 Novolog Vial Sliding Scale - SQ 6 units ACHS SARAH Administration Protocol Pantoprazole Sodium 40 mg 03/18/17 10:00 03/26/17 10:17 Protonix 40mg Ivpb (Pre-Docked) IVPB 40 mg DAILY SARAH Administration ASSESSMENT/PLAN: 76 y/o M with signifcant PMHx of CHF, HTN, Afib, and pulmonary HTN admitted from [facility] s/p cardiac arrest 2/2 vfib admitted to ICU Problem List - Problems (1) Cardiac arrest Assessment/Plan: * Currently:Norepinephrine 5mcg/hr and Dopamine @ 5mcg/hr * in fluid overload must be in negative fluid balance to have a chance at extubation. * Now Amiodarone 400mg PO daily * Continue ICU monitoring. (2) Positive culture findings in sputum Assessment/Plan: * sputum (+) for MRSA * Continue Vancomycin daily with repeat trough * will repeat AM labs. (3) Acute on chronic diastolic CHF (congestive heart failure) Assessment/Plan: * Lasix drip increased to 20mg/hr (MAX) * No improvement. * renal US negative for hydronephrosis or any signs of obstruction . * Most likely from Low perfusion of kidneys. * CXR worsened from yesterday. * monitor I/O's * daily weights. (4) A-fib Assessment/Plan: * Currently paced * will hold off on AV blockage due to hypotension * Digoxin held due to renal function. (5) Supratherapeutic INR Assessment/Plan: * resolved * Heparin drip for AC. (6) CKD (chronic kidney disease) Assessment/Plan: * worsening Cr however will need to continue Lasix. * Stage 4 GFR 23 * Nephrology consult appreciated. * Metolazone increased to 20mg PO (MAX) * will most likely need dialysis with UF tomorrow * Maintain MAP >65 (7) DVT prophylaxis Assessment/Plan: * Heparin GGT * SCD's bilat. Visit type - Emergency Visit Emergency Visit: Yes ED Registration Date: 03/17/17 Care time: The patient presented to the Emergency Department on the above date and was hospitalized for further evaluation of their emergent condition. - New Patient This patient is new to me today: No - Critical Care Critical Care patient: Yes Total Critical Care Time (in minutes): 45 Critical Care Statement: The care of this patient involved high complexity decision making to prevent further life threatening deterioration of the patient 's condition and/or to evalute & treat vital organ system(s) failure or risk of failure.
[2017-03-26] MEDS ORDERED: NOREPINEPHRINE BITARTRATE 4 MG/4 ML ML IV ONE ×2 (17:31→17:36)
--- NOTE | 2017-03-26 21:12 | PN ---
Progress Note, Physician Chief Complaint: Cardiac arrest History of Present Illness: remains intubated and on/off sedation. poor prognosis per discussion with primary services in ICU. creatinine 3.8. no further events. on amiodarone. - Current Medication List Current Medications: Active Medications Amiodarone HCl (Cordarone -) 400 mg PO DAILY SARAH Last Admin: 03/26/17 10:16 Dose: 400 mg Atorvastatin Calcium (Lipitor -) 80 mg NGT HS SARAH Last Admin: 03/25/17 23:06 Dose: 80 mg Chlorhexidine Gluconate (Hibiclens For Decolonization -) 1 applic TP HS SARAH Last Admin: 03/25/17 23:06 Dose: 1 applic Chlorhexidine Gluconate (Peridex -) 15 ml MM BID SARAH Last Admin: 03/26/17 10:16 Dose: 15 ml Heparin Sodium (Porcine) (Heparin -) 1,000 unit IVPUSH PRN PRN PRN Reason: Heparin Last Admin: 03/24/17 16:50 Dose: 1,000 unit Heparin Sodium (Porcine) (Heparin -) 5,000 unit IVPUSH PRN PRN PRN Reason: Heparin Hydrocortisone Sodium Succinate (Solu-Cortef -) 100 mg IVPB Q8H-IV SARAH Last Admin: 03/26/17 17:47 Dose: 100 mg Furosemide 100 mg/ Dextrose 100 mls @ 10 mls/hr IVPB TITR SARAH PRN Reason: 10 MG/HR Last Admin: 03/26/17 19:56 Dose: 15 mls/hr Norepinephrine Bitartrate 8, (000 mcg/ Dextrose) 500 mls @ 18.75 mls/hr IV TITR SARAH; 5 MCG/MIN PRN Reason: Protocol Last Admin: 03/26/17 17:46 Dose: 33.75 mls/hr Heparin Sodium (Porcine) 25, (000 unit/ Sodium Chloride) 500 mls @ 20 mls/hr IV TITR SARAH; 1,000 UNIT/HR PRN Reason: Protocol Last Admin: 03/26/17 07:00 Dose: 24 mls/hr Dopamine HCl/Dextrose (Dopamine 400 Mg/D5w -) 250 mls @ 27.375 mls/hr IVPB TITR SARAH; 5 MCG/KG/MIN PRN Reason: Protocol Last Titration: 03/26/17 17:00 Dose: 1 mcg/kg/min Propofol (Diprivan -) 100 mls @ 4.38 mls/hr IVPB TITR SARAH; 5 MCG/KG/MIN PRN Reason: Protocol Last Admin: 03/26/17 14:00 Dose: 17.52 mls/hr Insulin Aspart (Novolog Vial Sliding Scale -) 1 vial SQ ACHS SARAH PRN Reason: Protocol Last Admin: 03/26/17 18:45 Dose: 6 units Pantoprazole Sodium (Protonix 40mg Ivpb (Pre-Docked)) 40 mg IVPB DAILY [facility] Last Admin: 03/26/17 10:17 Dose: 40 mg - Objective Vital Signs: Vital Signs Temperature 97.7 F 03/26/17 18:00 Pulse Rate 60 03/26/17 20:26 Respiratory Rate 28 H 03/26/17 20:38 Blood Pressure 91/61 03/26/17 20:26 O2 Sat by Pulse Oximetry (%) 100 03/26/17 20:06 HENT: Yes: Other (intubated) Cardiovascular: Yes: Regular Rate and Rhythm, Murmur Respiratory: Yes: Mechanically Ventilated Gastrointestinal: Yes: Normal Bowel Sounds, Soft, Abdomen, Obese Edema: Yes Edema: LLE: 2+, RLE: 2+ Labs: CBC, BMP 03/26/17 05:30 03/26/17 05:30 INR, PTT INR 1.53 (0.82-1.09) H 03/23/17 05:35 Problem List - Problems (1) Cardiac arrest Code(s): I46.9 - CARDIAC ARREST, CAUSE UNSPECIFIED (2) HTN (hypertension) Code(s): I10 - ESSENTIAL (PRIMARY) HYPERTENSION (3) Acute on chronic diastolic CHF (congestive heart failure) Code(s): I50.33 - ACUTE ON CHRONIC DIASTOLIC (CONGESTIVE) HEART FAILURE (4) Hyperkalemia Code(s): E87.5 - HYPERKALEMIA (5) Hyperlipidemia Code(s): E78.5 - HYPERLIPIDEMIA, UNSPECIFIED (6) 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 hypertension Code(s): I27.2 - OTHER SECONDARY PULMONARY HYPERTENSION Assessment/Plan 03/26/2017: JVD EPS: as per my conversation with the primary ICU team, prognosis remains poor. creatinine remains elevated. remains on pressor support. on amiodarone 400 daily. no further events on telemetry. dialysis to potentially start tomorrow. tsh wnl. - if dialysis starts tomorrow and regains neurologic function, can consider ischemic workup for etiology of vt/vf arrest - c/w amiodarone - keep k 4-4.5, mg 2-2.5 - consideration for RV defibrillator lead placement for secondary prevention should the patient regain functioning neurologic status. at this time, the patient is not a candidate for a defibrillator upgrade although can be reconsidered in the future should his prognosis improve. - care as per cardiology, primary services Please call with any questions. CC: 45 minutes 03/18/2017: JVD EPS: the patient has a history of chronic atrial fibrillation s/p AVN ablation with [employer] implant and pulse generator change 02/2017. [employer]. device interrogation reveals VT and VF. the patient was shocked on the field and given a bolus of amiodarone. presently in the ICU on dopamine and therapeutic cooling protocol. sedated. neurologic status not confirmed. echo demonstrated normal LV systolic function with moderate pulmonary hypertension/dilated RV and severe TR. right sided findings likely secondary to sleep apnea. renal insufficiency with creatinine of 2.6. chronic renal insufficiency. unable to obtain cardiac catheterization at this time for ischemic eval due to risk of renal failure. - keep k 4-4.5, mg 2-2.5 - monitor neurologic status as therapeutic hypothermia is completed and sedation is weened - titrate off dopamine gtt. would start beta-yara therapy when feasible - start amiodarone gtt with loading and then 400 mg po/ngt q12 x 7 days and then daily - check tft's. - goals of care/advanced directives should be discussed particularly since pt/ family were previously considering palliative care - consideration for RV defibrillator lead placement for secondary prevention should the patient regain functioning neurologic status - care as per cardiology, primary services CC: 65 minutes Thank you for allowing me to participate in the care of your patient. Please call with any questions. Camron Bello MD [phone]
[2017-03-26] MEDS: ATORVASTATIN CA 80 MG TABLET (FP) NGT SCH (21:54)
[2017-03-26] MEDS: CHLORHEXIDINE GLUCONATE 4% CLEANSER FOR DECOLONIZATION TP SCH (21:55)
[2017-03-27] MEDS: PROPOFOL 100 ML IVPB SCH ×2 (02:00→12:24)
[2017-03-27] MEDS: HYDROCORTISONE SOD SUCCINATE 100 MG/2 ML VIAL IVPB SCH ×3 (02:24→17:27)
[2017-03-27] MEDS: HEPARIN - 25,000 UNIT in SODIUM CHLORIDE 495 ML IV SCH ×2 (03:00→17:45)
[2017-03-27] MEDS ORDERED: FUROSEMIDE 100 MG/10 ML INJECTABLE VIAL ONE ×3 (03:55→19:21)
[2017-03-27] MEDS: FUROSEMIDE INJECTION 100 MG in DEXTROSE 5%-WATER - 90 ML IVPB SCH ×2 (04:00→13:17)
[2017-03-27 06:19] LABS: MCH 25.9 pg (25.7-33.7); MCHC 32.4 g/dl (32.0-35.9); MEAN CELL VOLUME 79.9 fl (80-96); MEAN PLT VOLUME 8.9 fl (7.5-11.1); PLATELET COUNT 183 K/MM3 (134-434); RDW 18.7 % (11.9-15.9); WHITE BLOOD COUNT 9.8 K/mm3 (4.0-10.0)
[2017-03-27] MEDS ORDERED: NOREPINEPHRINE BITARTRATE 4 MG/4 ML ML IV ONE ×2 (06:34→22:12)
[2017-03-27] MEDS: NOREPINEPHRINE BITARTRATE 8,000 MCG in DEXTROSE 5%-WATER - 492 ML IV SCH ×2 (06:57→17:41)
[2017-03-27] MEDS: INSULIN SLIDING SCALE (NOVOLOG) 1 VIAL SQ SCH ×4 (06:57→21:43)
[2017-03-27 07:17] LABS: ARTERIAL BLD GAS O2 SATURATION 98.8 % (90-98.9); ARTERIAL BLOOD GAS BASE EXCESS -0.3 meq/l (-2-2); ARTERIAL BLOOD GAS HCO3 23.3 meq/L (22-26); ARTERIAL BLOOD GAS pH 7.43 (7.35-7.45)
[2017-03-27 07:18] LABS: ALLENS TEST POSITIVE; ART PUNCT SITE RIGHT RADIAL; LPM/O2% 40; MECH. VENT. YES; PT. ON O2? YES; TYPE OF O2 VENT; VENT RATE 16; VT/PRESS 380
[2017-03-27 08:33] LABS: ALBUMIN 2.3 g/dl (3.4-5.0); BILIRUBIN,TOTAL 0.4 mg/dL (0.2-1.0); CALCIUM 7.1 mg/dL (8.5-10.1); CREATININE 4.1 mg/dL (0.7-1.3); TOT PROT 5.6 g/dl (6.4-8.2)
[2017-03-27] MEDS ORDERED: PT OWN MED DRAWER 7, Y5N ONE (09:14)
[2017-03-27] MEDS: CHLORHEXIDINE GLUCONATE 0.12% 15ML CUP MM SCH ×2 (09:18→21:43)
[2017-03-27] MEDS: AMIODARONE HCL 200 MG TABLET (FP) PO SCH (09:19)
[2017-03-27] MEDS: PANTOPRAZOLE SODIUM 40 MG/100 ML PRE-DOCKED IVPB SCH (09:20)
--- NOTE | 2017-03-27 10:06 | PN ---
Progress Note (short form) - Note Progress Note: Renal Follow up for SUJATA/Fluid overload Pt seen and examined in the ICU no overnight events bp stable Levophed decreased, off Dopamine now Urine output over the last 24 hours ~800cc Vital Signs Temperature 97.6 F 03/27/17 06:00 Pulse Rate 60 03/27/17 08:00 Respiratory Rate 20 03/27/17 08:00 Blood Pressure 99/61 03/27/17 08:00 O2 Sat by Pulse Oximetry (%) 100 03/26/17 22:22 Intake & Output 03/24/17 03/25/17 03/26/17 03/27/17 23:59 23:59 23:59 23:59 Intake Total 4330 3662 4255.2 1596.8 Output Total 1800 1600 850 900 Balance 2530 2062 3405.2 696.8 Weight 325 lb 6.4 oz 334 lb 3.532 oz 336 lb 10.334 oz 336 lb 6.806 oz Gen: on Vent, awake CVS: RRR, No M/R Lungs: DEC BS throughout the lung ortiz, no rales Abd: soft, Obese, ND Ext: 2+ edema in LE, no cyanosis, warm ext : Ridley in place CBC, BMP 03/27/17 05:15 03/27/17 05:15 Laboratory Tests 03/27/17 05:15 Calcium 7.1 L Albumin 2.3 L Current Medications Amiodarone HCl (Cordarone -) 400 mg PO DAILY [facility] Last Admin: 03/27/17 09:19 Dose: 400 mg Atorvastatin Calcium (Lipitor -) 80 mg NGT HS [facility] Last Admin: 03/26/17 21:54 Dose: 80 mg Chlorhexidine Gluconate (Hibiclens For Decolonization -) 1 applic TP HS [facility] Last Admin: 03/26/17 21:55 Dose: 1 applic Chlorhexidine Gluconate (Peridex -) 15 ml MM BID SARAH Last Admin: 03/27/17 09:18 Dose: 15 ml Heparin Sodium (Porcine) (Heparin -) 1,000 unit IVPUSH PRN PRN PRN Reason: Heparin Last Admin: 03/24/17 16:50 Dose: 1,000 unit Heparin Sodium (Porcine) (Heparin -) 5,000 unit IVPUSH PRN PRN PRN Reason: Heparin Hydrocortisone Sodium Succinate (Solu-Cortef -) 100 mg IVPB Q8H-IV SARAH Last Admin: 03/27/17 09:19 Dose: 100 mg Furosemide 100 mg/ Dextrose 100 mls @ 10 mls/hr IVPB TITR SARAH PRN Reason: 10 MG/HR Last Admin: 03/27/17 04:00 Dose: 15 mls/hr Norepinephrine Bitartrate 8, (000 mcg/ Dextrose) 500 mls @ 18.75 mls/hr IV TITR SARAH; 5 MCG/MIN PRN Reason: Protocol Last Admin: 03/27/17 06:57 Dose: 33.75 mls/hr Heparin Sodium (Porcine) 25, (000 unit/ Sodium Chloride) 500 mls @ 20 mls/hr IV TITR SARAH; 1,000 UNIT/HR PRN Reason: Protocol Last Admin: 03/27/17 03:00 Dose: 24 mls/hr Dopamine HCl/Dextrose (Dopamine 400 Mg/D5w -) 250 mls @ 27.375 mls/hr IVPB TITR SARAH; 5 MCG/KG/MIN PRN Reason: Protocol Last Titration: 03/26/17 19:00 Dose: 0 mcg/kg/min Propofol (Diprivan -) 100 mls @ 4.38 mls/hr IVPB TITR SARAH; 5 MCG/KG/MIN PRN Reason: Protocol Last Admin: 03/27/17 02:00 Dose: 10 mls/hr Insulin Aspart (Novolog Vial Sliding Scale -) 1 vial SQ ACHS SARAH PRN Reason: Protocol Last Admin: 03/27/17 06:57 Dose: 4 units Pantoprazole Sodium (Protonix 40mg Ivpb (Pre-Docked)) 40 mg IVPB DAILY SARAH Last Admin: 03/27/17 09:20 Dose: 40 mg A/P 76 year old Gentleman with PMhx of CKD, CHF, Hypertension, Afib, Obesity, Prostate Ca who presented s/p cardiac arrest with SUJATA and Volume overload #Non-Oliguric Acute on Chronic renal insufficiency with volume overload pt remains net positive for I and O BUN/Cr continues to up trend in setting of Diuretics will plan for dialysis and UF today for management of volume overload acute indication for dialysis is volume overload refractory to diuretics Risks and Benefits of dialysis discussed with who is agreeable to the procedure will plan for Hd x 2 hours followed by 2 hours of isolated UF Goal UF today is 2-2.5L continue lasix gtt titrate Pressers for MAP > 65 will use Albumin, Na modeling and low temp with HD #Shock/Resp Failure management as per ICU keep MAP > 65 titrate pressers as per ICU Thank you Garry Drew DO
--- NOTE | 2017-03-27 10:10 | PN ---
Physical Exam: SUBJECTIVE: Patient seen and examined at bedside.No overnight events. Remains intubated and sedated. Responds minimally to verbal commands. OBJECTIVE: Vital Signs Period Temp Pulse Resp BP Sys/Krishnan Pulse Ox Last 24 Hr 97.6 F-98.0 F 59-74 16-28 91-111/56-66 97-100 GENERAL: intubated and sedated HEAD: Normal with no signs of trauma. EYES: pupils reactive to light ENT: ET tube in place NECK: supple. LUNGS: Breath sounds equal, clear to auscultation bilaterally, diminished bibasilar breath sounds. HEART: RRR, S1, S2 without murmur, rub or gallop. ABDOMEN: Obese, hypoactive BS, edema of abdominal wall. Rectal tube in place and draining. EXTREMITIES: 3+ pittiing edema up to abdomen. Chronic changes of lower ext. NEUROLOGICAL: Sedated but opens eyes on command. Moves upper extremities to verbal command. SKIN: Warm, dry, thickened skin on bilat. LE Laboratory Results - last 24 hr 03/26/17 03/26/17 03/26/17 10:00 12:11 18:40 WBC RBC Hgb Hct MCV MCHC RDW Plt Count MPV PTT (Actin FS) Puncture Site ABG pH ABG pCO2 at Pt Temp ABG pO2 at Pt Temp ABG HCO3 ABG O2 Sat (Measured) ABG O2 Content ABG Base Excess Brian Test O2 Delivery Device Oxygen Flow Rate Vent Mode Vent Rate Mechanical Rate PEEP Pressure Support Vent Sodium Potassium Chloride Carbon Dioxide Anion Gap BUN Creatinine Creat Clearance w eGFR POC Glucometer 255.12131 272.42657 Random Glucose Calcium Total Bilirubin AST ALT Alkaline Phosphatase Total Protein Albumin Random Vancomycin 17.435 03/26/17 03/27/17 03/27/17 22:42 05:15 05:15 WBC 9.8 RBC 3.42 L Hgb 8.8 L Hct 27.3 L MCV 79.9 L MCHC 32.4 RDW 18.7 H Plt Count 183 MPV 8.9 PTT (Actin FS) 72.4 H Puncture Site ABG pH ABG pCO2 at Pt Temp ABG pO2 at Pt Temp ABG HCO3 ABG O2 Sat (Measured) ABG O2 Content ABG Base Excess Brian Test O2 Delivery Device Oxygen Flow Rate Vent Mode Vent Rate Mechanical Rate PEEP Pressure Support Vent Sodium Potassium Chloride Carbon Dioxide Anion Gap BUN Creatinine Creat Clearance w eGFR POC Glucometer [phone] Random Glucose Calcium Total Bilirubin AST ALT Alkaline Phosphatase Total Protein Albumin Random Vancomycin 03/27/17 03/27/17 05:15 07:05 WBC RBC Hgb Hct MCV MCHC RDW Plt Count MPV PTT (Actin FS) Puncture Site Right radial ABG pH 7.43 ABG pCO2 at Pt Temp 35.9 ABG pO2 at Pt Temp 109.0 H D ABG HCO3 23.3 ABG O2 Sat (Measured) 98.8 ABG O2 Content 14.3 L ABG Base Excess -0.3 Brian Test Positive O2 Delivery Device Vent Oxygen Flow Rate 40 Vent Mode A/c Vent Rate 16 Mechanical Rate Yes PEEP 5.0 Pressure Support Vent 380 Sodium 131 L Potassium 3.6 Chloride 91 L Carbon Dioxide 25 Anion Gap 15 BUN 122 H* Creatinine 4.1 H Creat Clearance w eGFR 14.18 POC Glucometer Random Glucose 204 H Calcium 7.1 L Total Bilirubin 0.4 AST 24 D ALT 18 Alkaline Phosphatase 73 Total Protein 5.6 L Albumin 2.3 L Random Vancomycin Active Medications Generic Name Dose Route Start Last Admin Trade Name Freq PRN Reason Stop Dose Admin Amiodarone HCl 400 mg 03/26/17 10:00 03/27/17 09:19 Cordarone - PO 400 mg DAILY SARAH Administration Atorvastatin Calcium 80 mg 03/18/17 09:45 03/26/17 21:54 Lipitor - NGT 80 mg HS SARAH Administration Chlorhexidine Gluconate 1 applic 03/17/17 22:00 03/26/17 21:55 Hibiclens For Decolonization - TP 1 applic HS SARAH Administration Chlorhexidine Gluconate 15 ml 03/18/17 22:15 03/27/17 09:18 Peridex - MM 15 ml BID SARAH Administration Heparin Sodium (Porcine) 1,000 unit 03/22/17 08:38 03/24/17 16:50 Heparin - IVPUSH 1,000 unit PRN PRN Administration Heparin Heparin Sodium (Porcine) 5,000 unit 03/22/17 08:38 Heparin - IVPUSH PRN PRN Heparin Hydrocortisone Sodium Succinate 100 mg 03/23/17 18:00 03/27/17 09:19 Solu-Cortef - IVPB 100 mg Q8H-IV SARAH Administration Furosemide 100 mg/ Dextrose 100 mls @ 10 mls/hr 03/21/17 13:45 03/27/17 04:00 IVPB 15 mls/hr TITR SARAH Administration 10 MG/HR Norepinephrine Bitartrate 8, 500 mls @ 18.75 mls/hr 03/22/17 08:45 03/27/17 06: 57 000 mcg/ Dextrose IV 33.75 mls/hr TITR SARAH Administration Protocol 5 MCG/MIN Heparin Sodium (Porcine) 25, 500 mls @ 20 mls/hr 03/22/17 08:45 03/27/17 03:00 000 unit/ Sodium Chloride IV 24 mls/hr TITR SARAH Administration Protocol 1,000 UNIT/HR Dopamine HCl/Dextrose 250 mls @ 27.375 mls/hr 03/23/17 12:00 03/26/17 19:00 Dopamine 400 Mg/D5w - IVPB 0 mcg/kg/min TITR SARAH Titration Protocol 5 MCG/KG/MIN Propofol 100 mls @ 4.38 mls/hr 03/23/17 12:00 03/27/17 02:00 Diprivan - IVPB 10 mls/hr TITR SARAH Administration Protocol 5 MCG/KG/MIN Insulin Aspart 1 vial 03/24/17 07:00 03/27/17 06:57 Novolog Vial Sliding Scale - SQ 4 units ACHS SARAH Administration Protocol Pantoprazole Sodium 40 mg 03/18/17 10:00 03/27/17 09:20 Protonix 40mg Ivpb (Pre-Docked) IVPB 40 mg DAILY SARAH Administration ASSESSMENT/PLAN: 76 y/o M with signifcant PMHx of CHF, HTN, Afib, and pulmonary HTN admitted from [facility] s/p cardiac arrest 2/2 vfib admitted to ICU Problem List - Problems (1) Cardiac arrest Assessment/Plan: * Maintaining MAP * Currently:Norepinephrine 9mcg/hr and Dopamine discontinued * in fluid overload must be in negative fluid balance to have a chance at extubation. * Now Amiodarone 400mg PO daily * Continue ICU monitoring. (2) Positive culture findings in sputum Assessment/Plan: * sputum (+) for MRSA * Continue Vancomycin daily with repeat trough * will repeat AM labs. (3) Acute on chronic diastolic CHF (congestive heart failure) Assessment/Plan: * Lasix drip increased to 15mg/hr (MAX) * slight improvement. * renal US negative for hydronephrosis or any signs of obstruction . * Most likely from Low perfusion of kidneys. * monitor I/O's- +3L * daily weights. (4) A-fib Assessment/Plan: * Currently paced * Seen by EP Dr. Bello will continue Amiodarone. * will hold off on AV blockage due to hypotension * Digoxin held due to renal function. (5) Supratherapeutic INR Assessment/Plan: * resolved * Heparin drip for AC. (6) CKD (chronic kidney disease) Assessment/Plan: * worsening Cr however will need to continue Lasix. * Stage 4 GFR 23 * Nephrology consult appreciated. * Metolazone increased to 20mg PO (MAX) * will be dialyzed today with UF as per Dr. Drew * Maintain MAP >65 (7) DVT prophylaxis Assessment/Plan: * Heparin GGT * SCD's bilat. Visit type - Emergency Visit Emergency Visit: Yes ED Registration Date: 03/17/17 Care time: The patient presented to the Emergency Department on the above date and was hospitalized for further evaluation of their emergent condition. - New Patient This patient is new to me today: No - Critical Care Critical Care patient: Yes Total Critical Care Time (in minutes): 33 Critical Care Statement: The care of this patient involved high complexity decision making to prevent further life threatening deterioration of the patient 's condition and/or to evalute & treat vital organ system(s) failure or risk of failure.
--- NOTE | 2017-03-27 11:47 | PN ---
Progress Note, Physician History of Present Illness: Sedated on ventilator No acute distress Afebrile WBC WNL - Current Medication List Current Medications: Active Medications Albumin Human (Albumin Human 25%) 12.5 gm IVPB Q30M [facility] Amiodarone HCl (Cordarone -) 400 mg PO DAILY SARAH Last Admin: 03/27/17 09:19 Dose: 400 mg Atorvastatin Calcium (Lipitor -) 80 mg NGT HS SARAH Last Admin: 03/26/17 21:54 Dose: 80 mg Chlorhexidine Gluconate (Hibiclens For Decolonization -) 1 applic TP HS SARAH Last Admin: 03/26/17 21:55 Dose: 1 applic Chlorhexidine Gluconate (Peridex -) 15 ml MM BID SARAH Last Admin: 03/27/17 09:18 Dose: 15 ml Heparin Sodium (Porcine) (Heparin -) 1,000 unit IVPUSH PRN PRN PRN Reason: Heparin Last Admin: 03/24/17 16:50 Dose: 1,000 unit Heparin Sodium (Porcine) (Heparin -) 5,000 unit IVPUSH PRN PRN PRN Reason: Heparin Hydrocortisone Sodium Succinate (Solu-Cortef -) 100 mg IVPB Q8H-IV SARAH Last Admin: 03/27/17 09:19 Dose: 100 mg Furosemide 100 mg/ Dextrose 100 mls @ 10 mls/hr IVPB TITR SARAH PRN Reason: 10 MG/HR Last Admin: 03/27/17 04:00 Dose: 15 mls/hr Norepinephrine Bitartrate 8, (000 mcg/ Dextrose) 500 mls @ 18.75 mls/hr IV TITR SARAH; 5 MCG/MIN PRN Reason: Protocol Last Admin: 03/27/17 06:57 Dose: 33.75 mls/hr Heparin Sodium (Porcine) 25, (000 unit/ Sodium Chloride) 500 mls @ 20 mls/hr IV TITR SARAH; 1,000 UNIT/HR PRN Reason: Protocol Last Admin: 03/27/17 03:00 Dose: 24 mls/hr Dopamine HCl/Dextrose (Dopamine 400 Mg/D5w -) 250 mls @ 27.375 mls/hr IVPB TITR SARAH; 5 MCG/KG/MIN PRN Reason: Protocol Last Titration: 03/26/17 19:00 Dose: 0 mcg/kg/min Propofol (Diprivan -) 100 mls @ 4.38 mls/hr IVPB TITR SARAH; 5 MCG/KG/MIN PRN Reason: Protocol Last Admin: 03/27/17 02:00 Dose: 10 mls/hr Insulin Aspart (Novolog Vial Sliding Scale -) 1 vial SQ ACHS SARAH PRN Reason: Protocol Last Admin: 03/27/17 06:57 Dose: 4 units Pantoprazole Sodium (Protonix 40mg Ivpb (Pre-Docked)) 40 mg IVPB DAILY [facility] Last Admin: 03/27/17 09:20 Dose: 40 mg - Objective Vital Signs: Vital Signs Temperature 98 F 03/27/17 10:00 Pulse Rate 63 03/27/17 10:12 Respiratory Rate 18 03/27/17 10:00 Blood Pressure 90/53 03/27/17 10:00 O2 Sat by Pulse Oximetry (%) 99 03/27/17 10:12 Constitutional: Yes: No Distress Eyes: Yes: Conjunctiva Clear Cardiovascular: Yes: Regular Rate and Rhythm, S1, S2 Respiratory: Yes: Mechanically Ventilated Gastrointestinal: Yes: Normal Bowel Sounds, Soft. No: Tenderness Edema: Yes Labs: CBC, BMP 03/27/17 05:15 03/27/17 05:15 INR, PTT INR 1.53 (0.82-1.09) H 03/23/17 05:35 Assessment/Plan S/P cardiopulmonary arrest Respiratory failure Renal failure + sputum c/s MRSA Continue ventilatory support Redose vancomycin Check vancomycin level am Contact precautions
--- NOTE | 2017-03-27 12:17 | PN ---
Teaching Attending Note Name of Resident: Fani Allison ATTENDING PHYSICIAN STATEMENT I saw and evaluated the patient. I reviewed the resident's note and discussed the case with the resident. I agree with the resident's findings and plan as documented. SUBJECTIVE: Patient seen and examined in the ICU. Remains intubated and lightly sedated on propofol. Grimaces to noxious stimuli. Remains on levophed (10mcq) drips. OBJECTIVE: Intake & Output 03/24/17 03/25/17 03/26/17 03/27/17 23:59 23:59 23:59 23:59 Intake Total 4330 3662 4255.2 1596.8 Output Total 1800 1600 850 900 Balance 2530 2062 3405.2 696.8 Weight 325 lb 6.4 oz 334 lb 3.532 oz 336 lb 10.334 oz 336 lb 6.806 oz Last Vital Signs Temp Pulse Resp BP Pulse Ox 98 F 63 19 90/53 99 03/27/17 10:00 03/27/17 10:12 03/27/17 11:50 03/27/17 10:00 03/27/17 10:12 Active Medications Albumin Human (Albumin Human 25%) 12.5 gm IVPB Q30M [facility] Amiodarone HCl (Cordarone -) 400 mg PO DAILY [facility] Last Admin: 03/27/17 09:19 Dose: 400 mg Atorvastatin Calcium (Lipitor -) 80 mg NGT HS [facility] Last Admin: 03/26/17 21:54 Dose: 80 mg Chlorhexidine Gluconate (Hibiclens For Decolonization -) 1 applic TP HS [facility] Last Admin: 03/26/17 21:55 Dose: 1 applic Chlorhexidine Gluconate (Peridex -) 15 ml MM BID [facility] Last Admin: 03/27/17 09:18 Dose: 15 ml Heparin Sodium (Porcine) (Heparin -) 1,000 unit IVPUSH PRN PRN PRN Reason: Heparin Last Admin: 03/24/17 16:50 Dose: 1,000 unit Heparin Sodium (Porcine) (Heparin -) 5,000 unit IVPUSH PRN PRN PRN Reason: Heparin Hydrocortisone Sodium Succinate (Solu-Cortef -) 100 mg IVPB Q8H-IV [facility] Last Admin: 03/27/17 09:19 Dose: 100 mg Furosemide 100 mg/ Dextrose 100 mls @ 10 mls/hr IVPB TITR SARAH PRN Reason: 10 MG/HR Last Admin: 03/27/17 04:00 Dose: 15 mls/hr Norepinephrine Bitartrate 8, (000 mcg/ Dextrose) 500 mls @ 18.75 mls/hr IV TITR SARAH; 5 MCG/MIN PRN Reason: Protocol Last Admin: 03/27/17 06:57 Dose: 33.75 mls/hr Heparin Sodium (Porcine) 25, (000 unit/ Sodium Chloride) 500 mls @ 20 mls/hr IV TITR SARAH; 1,000 UNIT/HR PRN Reason: Protocol Last Admin: 03/27/17 03:00 Dose: 24 mls/hr Dopamine HCl/Dextrose (Dopamine 400 Mg/D5w -) 250 mls @ 27.375 mls/hr IVPB TITR SARAH; 5 MCG/KG/MIN PRN Reason: Protocol Last Titration: 03/26/17 19:00 Dose: 0 mcg/kg/min Propofol (Diprivan -) 100 mls @ 4.38 mls/hr IVPB TITR SARAH; 5 MCG/KG/MIN PRN Reason: Protocol Last Admin: 03/27/17 02:00 Dose: 10 mls/hr Vancomycin HCl 1,000 mg/ (Dextrose) 250 mls @ 200 mls/hr IVPB ONCE ONE Stop: 03/27/17 13:05 Insulin Aspart (Novolog Vial Sliding Scale -) 1 vial SQ ACHS SARAH PRN Reason: Protocol Last Admin: 03/27/17 06:57 Dose: 4 units Pantoprazole Sodium (Protonix 40mg Ivpb (Pre-Docked)) 40 mg IVPB DAILY [facility] Last Admin: 03/27/17 09:20 Dose: 40 mg Gen: intubated, sedated Heart: RRR Lung: decreased breath sounds at the bases Abd: soft, nontender Ext: + edema Laboratory Results - last 24 hr 03/26/17 03/26/17 03/26/17 12:11 18:40 22:42 WBC RBC Hgb Hct MCV MCHC RDW Plt Count MPV PTT (Actin FS) Puncture Site ABG pH ABG pCO2 at Pt Temp ABG pO2 at Pt Temp ABG HCO3 ABG O2 Sat (Measured) ABG O2 Content ABG Base Excess Brian Test O2 Delivery Device Oxygen Flow Rate Vent Mode Vent Rate Mechanical Rate PEEP Pressure Support Vent Sodium Potassium Chloride Carbon Dioxide Anion Gap BUN Creatinine Creat Clearance w eGFR POC Glucometer 255.27229 272.08385 269.75413 Random Glucose Calcium Total Bilirubin AST ALT Alkaline Phosphatase Total Protein Albumin 03/27/17 03/27/17 03/27/17 05:15 05:15 05:15 WBC 9.8 RBC 3.42 L Hgb 8.8 L Hct 27.3 L MCV 79.9 L MCHC 32.4 RDW 18.7 H Plt Count 183 MPV 8.9 PTT (Actin FS) 72.4 H Puncture Site ABG pH ABG pCO2 at Pt Temp ABG pO2 at Pt Temp ABG HCO3 ABG O2 Sat (Measured) ABG O2 Content ABG Base Excess Brian Test O2 Delivery Device Oxygen Flow Rate Vent Mode Vent Rate Mechanical Rate PEEP Pressure Support Vent Sodium 131 L Potassium 3.6 Chloride 91 L Carbon Dioxide 25 Anion Gap 15 BUN 122 H* Creatinine 4.1 H Creat Clearance w eGFR 14.18 POC Glucometer Random Glucose 204 H Calcium 7.1 L Total Bilirubin 0.4 AST 24 D ALT 18 Alkaline Phosphatase 73 Total Protein 5.6 L Albumin 2.3 L 03/27/17 03/27/17 05:37 07:05 WBC RBC Hgb Hct MCV MCHC RDW Plt Count MPV PTT (Actin FS) Puncture Site Right radial ABG pH 7.43 ABG pCO2 at Pt Temp 35.9 ABG pO2 at Pt Temp 109.0 H D ABG HCO3 23.3 ABG O2 Sat (Measured) 98.8 ABG O2 Content 14.3 L ABG Base Excess -0.3 Brian Test Positive O2 Delivery Device Vent Oxygen Flow Rate 40 Vent Mode A/c Vent Rate 16 Mechanical Rate Yes PEEP 5.0 Pressure Support Vent 380 Sodium Potassium Chloride Carbon Dioxide Anion Gap BUN Creatinine Creat Clearance w eGFR POC Glucometer [phone] Random Glucose Calcium Total Bilirubin AST ALT Alkaline Phosphatase Total Protein Albumin CXR: No gross change in bilateral effusions ASSESSMENT AND PLAN: s/p Vfib Cardiac Arrest Acute on Chronic Hypoxic Respiratory Failure Acute on Chronic Diastolic Heart Failure Severe Pulmonary HTN s/p BiV PPM CAD +Troponins Atrial Fibrillation HTN CKD Hyperlipidemia DM COPD Morbid Obesity Obstructive Sleep Apnea - S/P Hypothermia protocol - keep K>4, Mg>2 - Amiodarone - AC - Lasix drip - Monitor urine output, creatinine - taper FiO2 to keep SpO2 >90%, decreased Fio2 to 40%, PEEP to 5 - hold sedation to assess mental status - spontaneous breathing trials as tolerated - enteral feeds - DVT/GI prophylaxis - Will likely need Trach early next week Dr Gomez critical care time spent in reviewing chart, evaluating patient and formulating plan 40 min
--- NOTE | 2017-03-27 12:18 | PROC ---
Central Line Insertion Indication: Other (HD) Risks and Benefits Explained: Yes Consent on Chart: Yes Central Line: Dialysis Cath, Tri Lumen Anesthesia: 1% Lidocaine Sterile Technique: Yes Ultrasound Guided Assistance: Yes Position: Right Internal Jugular Post Insertion: Yes: Bilateral Breath Sounds, Bilateral Chest Expansion, Chest X-Ray Ordered Sterile Dressing Applied: Yes
[2017-03-27] MEDS: VANCOMYCIN 1 GRAM (PRE-DOCKED) 250 ML IVPB ONE ×2 (12:27→13:17)
[2017-03-27] MEDS: DOPAMINE 400 MG/D5W - 250 ML IVPB SCH (13:17)
--- NOTE | 2017-03-27 13:25 | PN ---
Progress Note, Physician - Current Medication List Current Medications: Active Medications Albumin Human (Albumin Human 25%) 12.5 gm IVPB Q30M [facility] Amiodarone HCl (Cordarone -) 400 mg PO DAILY [facility] Last Admin: 03/27/17 09:19 Dose: 400 mg Atorvastatin Calcium (Lipitor -) 80 mg NGT HS [facility] Last Admin: 03/26/17 21:54 Dose: 80 mg Chlorhexidine Gluconate (Hibiclens For Decolonization -) 1 applic TP HS [facility] Last Admin: 03/26/17 21:55 Dose: 1 applic Chlorhexidine Gluconate (Peridex -) 15 ml MM BID [facility] Last Admin: 03/27/17 09:18 Dose: 15 ml Heparin Sodium (Porcine) (Heparin -) 1,000 unit IVPUSH PRN PRN PRN Reason: Heparin Last Admin: 03/24/17 16:50 Dose: 1,000 unit Heparin Sodium (Porcine) (Heparin -) 5,000 unit IVPUSH PRN PRN PRN Reason: Heparin Hydrocortisone Sodium Succinate (Solu-Cortef -) 100 mg IVPB Q8H-IV [facility] Last Admin: 03/27/17 09:19 Dose: 100 mg Furosemide 100 mg/ Dextrose 100 mls @ 10 mls/hr IVPB TITR SARAH PRN Reason: 10 MG/HR Last Admin: 03/27/17 13:17 Dose: 15 mls/hr Norepinephrine Bitartrate 8, (000 mcg/ Dextrose) 500 mls @ 18.75 mls/hr IV TITR SARAH; 5 MCG/MIN PRN Reason: Protocol Last Admin: 03/27/17 06:57 Dose: 33.75 mls/hr Heparin Sodium (Porcine) 25, (000 unit/ Sodium Chloride) 500 mls @ 20 mls/hr IV TITR SARAH; 1,000 UNIT/HR PRN Reason: Protocol Last Admin: 03/27/17 03:00 Dose: 24 mls/hr Dopamine HCl/Dextrose (Dopamine 400 Mg/D5w -) 250 mls @ 27.375 mls/hr IVPB TITR SARAH; 5 MCG/KG/MIN PRN Reason: Protocol Last Admin: 03/27/17 13:17 Dose: Not Given Propofol (Diprivan -) 100 mls @ 4.38 mls/hr IVPB TITR SARAH; 5 MCG/KG/MIN PRN Reason: Protocol Last Admin: 03/27/17 12:24 Dose: 10 mls/hr Vancomycin HCl (Vancomycin (Pre-Docked)) 250 mls @ 200 mls/hr IVPB ONCE ONE Stop: 03/27/17 14:14 Last Admin: 03/27/17 13:17 Dose: Not Given Insulin Aspart (Novolog Vial Sliding Scale -) 1 vial SQ ACHS [facility]AH PRN Reason: Protocol Last Admin: 03/27/17 12:23 Dose: 8 units Pantoprazole Sodium (Protonix 40mg Ivpb (Pre-Docked)) 40 mg IVPB DAILY [facility] Last Admin: 03/27/17 09:20 Dose: 40 mg - Objective Vital Signs: Vital Signs Temperature 98 F 03/27/17 10:00 Pulse Rate 59 L 03/27/17 13:17 Respiratory Rate 20 03/27/17 12:00 Blood Pressure 99/54 03/27/17 13:17 O2 Sat by Pulse Oximetry (%) 99 03/27/17 10:12 Labs: CBC, BMP 03/27/17 05:15 03/27/17 05:15 INR, PTT INR 1.53 (0.82-1.09) H 03/23/17 05:35 Problem List - Problems (1) Cardiac arrest Code(s): I46.9 - CARDIAC ARREST, CAUSE UNSPECIFIED (2) Acute on chronic diastolic CHF (congestive heart failure) Code(s): I50.33 - ACUTE ON CHRONIC DIASTOLIC (CONGESTIVE) HEART FAILURE (3) Hyperlipidemia Code(s): E78.5 - HYPERLIPIDEMIA, UNSPECIFIED (4) Sleep apnea Code(s): G47.30 - SLEEP APNEA, UNSPECIFIED (5) HTN (hypertension) Code(s): I10 - ESSENTIAL (PRIMARY) HYPERTENSION (6) 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 hypertension Code(s): I27.2 - OTHER SECONDARY PULMONARY HYPERTENSION (7) Hyperkalemia Code(s): E87.5 - HYPERKALEMIA (8) Anemia Code(s): D64.9 - ANEMIA, UNSPECIFIED (9) Acute on chronic renal failure Code(s): N17.9 - ACUTE KIDNEY FAILURE, UNSPECIFIED N18.9 - CHRONIC KIDNEY DISEASE, UNSPECIFIED
--- NOTE | 2017-03-27 13:49 | PN ---
Teaching Attending Note Name of Resident: Cleve Bourgeois ATTENDING PHYSICIAN STATEMENT I saw and evaluated the patient. I reviewed the resident's note and discussed the case with the resident. I agree with the resident's findings and plan as documented. SUBJECTIVE: Patient is lying in bed, feeling better today. In ICU, still intubated. continues on Pressors. OBJECTIVE: Vital Signs Temperature 98 F 03/27/17 10:00 Pulse Rate 59 L 03/27/17 13:17 Respiratory Rate 20 03/27/17 13:31 Blood Pressure 99/54 03/27/17 13:17 O2 Sat by Pulse Oximetry (%) 99 03/27/17 13:31 CBCD WBC 9.8 K/mm3 (4.0-10.0) 03/27/17 05:15 RBC 3.42 M/mm3 (4.00-5.60) L 03/27/17 05:15 Hgb 8.8 GM/dL (11.7-16.9) L 03/27/17 05:15 Hct 27.3 % (35.4-49) L 03/27/17 05:15 MCV 79.9 fl (80-96) L 03/27/17 05:15 MCHC 32.4 g/dl (32.0-35.9) 03/27/17 05:15 RDW 18.7 % (11.9-15.9) H 03/27/17 05:15 Plt Count 183 K/MM3 (134-434) 03/27/17 05:15 MPV 8.9 fl (7.5-11.1) 03/27/17 05:15 CMP Sodium 131 mmol/L (136-145) L 03/27/17 05:15 Potassium 3.6 mmol/L (3.5-5.1) 03/27/17 05:15 Chloride 91 mmol/L (98-107) L 03/27/17 05:15 Carbon Dioxide 25 mmol/L (21-32) 03/27/17 05:15 Anion Gap 15 (8-16) 03/27/17 05:15 BUN 122 mg/dL (7-18) H* 03/27/17 05:15 Creatinine 4.1 mg/dL (0.7-1.3) H 03/27/17 05:15 Creat Clearance w eGFR 14.18 (>60) 03/27/17 05:15 Random Glucose 204 mg/dL (74-106) H 03/27/17 05:15 Calcium 7.1 mg/dL (8.5-10.1) L 03/27/17 05:15 Total Bilirubin 0.4 mg/dL (0.2-1.0) 03/27/17 05:15 AST 24 U/L (15-37) D 03/27/17 05:15 ALT 18 U/L (12-78) 03/27/17 05:15 Alkaline Phosphatase 73 U/L (45-117) 03/27/17 05:15 Total Protein 5.6 g/dl (6.4-8.2) L 03/27/17 05:15 Albumin 2.3 g/dl (3.4-5.0) L 03/27/17 05:15 CARDIAC ENZYMES Creatine Kinase 146 IU/L (39-308) 03/18/17 10:23 Troponin I 0.16 ng/ml (0.00-0.05) H D 03/18/17 10:23 Current Medications Generic Name Dose Route Start Last Admin Trade Name Freq PRN Reason Stop Dose Admin Albumin Human 12.5 gm 03/27/17 10:15 Albumin Human 25% IVPB Q30M [facility] Amiodarone HCl 400 mg 03/26/17 10:00 03/27/17 09:19 Cordarone - PO 400 mg DAILY [facility] Administration Atorvastatin Calcium 80 mg 03/18/17 09:45 03/26/17 21:54 Lipitor - NGT 80 mg HS [facility] Administration Chlorhexidine Gluconate 1 applic 03/17/17 22:00 03/26/17 21:55 Hibiclens For Decolonization - TP 1 applic HS [facility] Administration Chlorhexidine Gluconate 15 ml 03/18/17 22:15 03/27/17 09:18 Peridex - MM 15 ml BID [facility] Administration Heparin Sodium (Porcine) 1,000 unit 03/22/17 08:38 03/24/17 16:50 Heparin - IVPUSH 1,000 unit PRN PRN Administration Heparin Heparin Sodium (Porcine) 5,000 unit 03/22/17 08:38 Heparin - IVPUSH PRN PRN Heparin Hydrocortisone Sodium Succinate 100 mg 03/23/17 18:00 03/27/17 09:19 Solu-Cortef - IVPB 100 mg Q8H-IV [facility] Administration Furosemide 100 mg/ Dextrose 100 mls @ 10 mls/hr 03/21/17 13:45 03/27/17 13:17 IVPB 15 mls/hr TITR SARAH Administration 10 MG/HR Norepinephrine Bitartrate 8, 500 mls @ 18.75 mls/hr 03/22/17 08:45 03/27/17 06: 57 000 mcg/ Dextrose IV 33.75 mls/hr TITR SARAH Administration Protocol 5 MCG/MIN Heparin Sodium (Porcine) 25, 500 mls @ 20 mls/hr 03/22/17 08:45 03/27/17 03:00 000 unit/ Sodium Chloride IV 24 mls/hr TITR SARAH Administration Protocol 1,000 UNIT/HR Dopamine HCl/Dextrose 250 mls @ 27.375 mls/hr 03/23/17 12:00 03/27/17 13:17 Dopamine 400 Mg/D5w - IVPB Not Given TITR SARAH Protocol 5 MCG/KG/MIN Propofol 100 mls @ 4.38 mls/hr 03/23/17 12:00 03/27/17 12:24 Diprivan - IVPB 10 mls/hr TITR SARAH Administration Protocol 5 MCG/KG/MIN Vancomycin HCl 250 mls @ 200 mls/hr 03/27/17 13:00 03/27/17 13:17 Vancomycin (Pre-Docked) IVPB 03/27/17 14:14 Not Given ONCE ONE Insulin Aspart 1 vial 03/24/17 07:00 03/27/17 12:23 Novolog Vial Sliding Scale - SQ 8 units ACHS [facility] Administration Protocol Pantoprazole Sodium 40 mg 03/18/17 10:00 03/27/17 09:20 Protonix 40mg Ivpb (Pre-Docked) IVPB 40 mg DAILY [facility] Administration Home Medications Medication Instructions Recorded Allopurinol 300 mg PO DAILY 03/17/17 Digoxin [Lanoxin -] 0.125 mg PO DAILY 03/17/17 Docusate Sodium [Colace -] 300 mg PO HS 03/17/17 Ferrous Sulfate 650 mg PO BID 03/17/17 Furosemide [Lasix -] 80 mg PO DAILY 03/17/17 Latanoprost 0.005% Eye Drops 1 drop OU HS 03/17/17 [Xalatan 0.005% Eye Drops -] Metolazone [Zaroxolyn -] 2.5 mg PO AM 03/17/17 Nystatin Cream [Mycostatin] 1 applic TP BID 03/17/17 Polyethylene Glycol 3350 [Miralax 17 gm PO DAILY 03/17/17 (For Daily Use) -] Sennosides [Evac-U-Gen] 2 tab PO DAILY 03/17/17 Simvastatin [Zocor -] 80 mg PO HS 03/17/17 Sod Lactate/Amm Lact/Pot Lact 1 applic TP BID 03/17/17 [Amlactin Ultra Body Cream] Triamcinolone 0.1% Cream 1 applic TP BID 03/17/17 [Aristocort] Warfarin Na [Coumadin -] 7.5 mg PO Q7D 03/17/17 Warfarin Sodium [Coumadin] 5 mg PO ASDIR 03/17/17 CXR: Left lung almost complete opacification Generally: Intubated, Anasarca LE: 4 + edema bl , anasarca ASSESSMENT AND PLAN: 76 y/o man with h/o Severe cardiomypathy( non ischemic ) ,with severely reduced EF, and PULm HTN, Diastolic dysfunction , A fib on AC, who presented with cardiac arrest (V fib ) from his [facility] # S/P cardiac arrest s/p hypothermic protocol: due to severe Right sided cardiomyopathy ,with Severe non-ischemic cardiomypoathy, patient has a defibrillator ,was interrogated on admission .On levophed and dopamine drip for BP support to continue, to be tapered off slowly, cont Amio.400 mg po daily started on 03/26 # Acute hypoxic respiratory failure s/p Intubation unable to wean him off: due to having almost complete left opacification of left lung/Anasarca ,discussed with will start dialysis on him to take off 2-3 liters today. Also is not a candidate for Milrinone drip due to being highly Arrythmic # sputum with MRSA on IV Vancmycin continue. Level check in am . ID on the case. # Acute on chronic systolic and diastolic heart failure on lasix gtt.continue. Will try to reduce the fluid intake by making it double concentration. still in positive fluid balance despite being on lasix gtt. # LEFT Lung ; almost complete opacification discussed with possible HD # A fib: rate is controlled on heparin drip continue # Coumadin coagulopathy: resolved # CKD : Cr slightly increased monitor , renal on the case . DVT px :on heparin drip
[2017-03-27] MEDS: ALBUMIN HUMAN 25% 12.5 GM/50 ML VIAL IVPB SCH ×4 (15:45→17:15)
--- NOTE | 2017-03-27 16:28 | PN ---
Physical Exam: SUBJECTIVE: Patient seen and examined, on sedation, mech. ventilation. OBJECTIVE: Vital Signs Period Temp Pulse Resp BP Sys/Krishnan Pulse Ox Last 24 Hr 97.6 F-98.0 F 58-66 16-28 85-108/53-66 94-100 GENERAL: The [facility] is sedated, [facility]. HEAD: Normal with no signs of trauma. EYES: PERRL, sclera anicteric, conjunctiva clear. ENT: moist mucous membranes. NECK: Trachea midline, full range of motion, supple. LUNGS: Breath sounds equal, coarse breath sounds bilaterally, no crackles, no accessory muscle use. HEART: Regular rate and rhythm, S1, S2 without murmur, rub or gallop. ABDOMEN: Soft, nontender, nondistended, normoactive bowel sounds, no guarding, no rebound, no masses. EXTREMITIES: 2+ pulses, warm, 2+ edema in LE and abdomen. NEUROLOGICAL: No facial asymmetry, following commands, motor 1/5 in all extremities, gait not observed, sedated. PSYCH: Sedated. Ridley cath, draining. Rectal tube inserted.Dialysis cath inserted today. Laboratory Results - last 24 hr 03/26/17 03/26/17 03/27/17 18:40 22:42 05:15 WBC 9.8 RBC 3.42 L Hgb 8.8 L Hct 27.3 L MCV 79.9 L MCHC 32.4 RDW 18.7 H Plt Count 183 MPV 8.9 PTT (Actin FS) Puncture Site ABG pH ABG pCO2 at Pt Temp ABG pO2 at Pt Temp ABG HCO3 ABG O2 Sat (Measured) ABG O2 Content ABG Base Excess Brian Test O2 Delivery Device Oxygen Flow Rate Vent Mode Vent Rate Mechanical Rate PEEP Pressure Support Vent Sodium Potassium Chloride Carbon Dioxide Anion Gap BUN Creatinine Creat Clearance w eGFR POC Glucometer [phone] Random Glucose Calcium Total Bilirubin AST ALT Alkaline Phosphatase Total Protein Albumin 03/27/17 03/27/17 03/27/17 05:15 05:15 05:37 WBC RBC Hgb Hct MCV MCHC RDW Plt Count MPV PTT (Actin FS) 72.4 H Puncture Site ABG pH ABG pCO2 at Pt Temp ABG pO2 at Pt Temp ABG HCO3 ABG O2 Sat (Measured) ABG O2 Content ABG Base Excess Brian Test O2 Delivery Device Oxygen Flow Rate Vent Mode Vent Rate Mechanical Rate PEEP Pressure Support Vent Sodium 131 L Potassium 3.6 Chloride 91 L Carbon Dioxide 25 Anion Gap 15 BUN 122 H* Creatinine 4.1 H Creat Clearance w eGFR 14.18 POC Glucometer 242.13110 Random Glucose 204 H Calcium 7.1 L Total Bilirubin 0.4 AST 24 D ALT 18 Alkaline Phosphatase 73 Total Protein 5.6 L Albumin 2.3 L 03/27/17 03/27/17 07:05 12:19 WBC RBC Hgb Hct MCV MCHC RDW Plt Count MPV PTT (Actin FS) Puncture Site Right radial ABG pH 7.43 ABG pCO2 at Pt Temp 35.9 ABG pO2 at Pt Temp 109.0 H D ABG HCO3 23.3 ABG O2 Sat (Measured) 98.8 ABG O2 Content 14.3 L ABG Base Excess -0.3 Brian Test Positive O2 Delivery Device Vent Oxygen Flow Rate 40 Vent Mode A/c Vent Rate 16 Mechanical Rate Yes PEEP 5.0 Pressure Support Vent 380 Sodium Potassium Chloride Carbon Dioxide Anion Gap BUN Creatinine Creat Clearance w eGFR POC Glucometer [phone] Random Glucose Calcium Total Bilirubin AST ALT Alkaline Phosphatase Total Protein Albumin Active Medications Generic Name Dose Route Start Last Admin Trade Name Freq PRN Reason Stop Dose Admin Albumin Human 12.5 gm 03/27/17 15:45 Albumin Human 25% IVPB 03/27/17 17:16 Q30M [facility] Amiodarone HCl 400 mg 03/26/17 10:00 03/27/17 09:19 Cordarone - PO 400 mg DAILY [facility] Administration Atorvastatin Calcium 80 mg 03/18/17 09:45 03/26/17 21:54 Lipitor - NGT 80 mg HS [facility] Administration Chlorhexidine Gluconate 1 applic 03/17/17 22:00 03/26/17 21:55 Hibiclens For Decolonization - TP 1 applic HS [facility] Administration Chlorhexidine Gluconate 15 ml 03/18/17 22:15 03/27/17 09:18 Peridex - MM 15 ml BID [facility] Administration Heparin Sodium (Porcine) 1,000 unit 03/22/17 08:38 03/24/17 16:50 Heparin - IVPUSH 1,000 unit PRN PRN Administration Heparin Heparin Sodium (Porcine) 5,000 unit 03/22/17 08:38 Heparin - IVPUSH PRN PRN Heparin Hydrocortisone Sodium Succinate 100 mg 03/23/17 18:00 03/27/17 09:19 Solu-Cortef - IVPB 100 mg Q8H-IV [facility] Administration Furosemide 100 mg/ Dextrose 100 mls @ 10 mls/hr 03/21/17 13:45 03/27/17 13:17 IVPB 15 mls/hr TITR SARAH Administration 10 MG/HR Norepinephrine Bitartrate 8, 500 mls @ 18.75 mls/hr 03/22/17 08:45 03/27/17 06: 57 000 mcg/ Dextrose IV 33.75 mls/hr TITR SARAH Administration Protocol 5 MCG/MIN Heparin Sodium (Porcine) 25, 500 mls @ 20 mls/hr 03/22/17 08:45 03/27/17 03:00 000 unit/ Sodium Chloride IV 24 mls/hr TITR [facility]AH Administration Protocol 1,000 UNIT/HR Dopamine HCl/Dextrose 250 mls @ 27.375 mls/hr 03/23/17 12:00 03/27/17 13:17 Dopamine 400 Mg/D5w - IVPB Not Given TITR SARAH Protocol 5 MCG/KG/MIN Propofol 100 mls @ 4.38 mls/hr 03/23/17 12:00 03/27/17 12:24 Diprivan - IVPB 10 mls/hr TITR SARAH Administration Protocol 5 MCG/KG/MIN Insulin Aspart 1 vial 03/24/17 07:00 03/27/17 12:23 Novolog Vial Sliding Scale - SQ 8 units ACHS SARAH Administration Protocol Pantoprazole Sodium 40 mg 03/18/17 10:00 03/27/17 09:20 Protonix 40mg Ivpb (Pre-Docked) IVPB 40 mg DAILY [facility] Administration ASSESSMENT/PLAN: 76 year old male w/ a significant PMH of diastolic CHF, biventricular pacemaker , COPD, HTN, HLD, Atrial Fibrillation, renal insufficiency, morbid obesity, Prostate CA, Sleep apnea on O2, generalized weakness (wheelchair-bound), Glaucoma BIB[facility] from [facility] s/p Cardiac arrest due to V.Fib. Neuro: -on CPAP -sedated, [facility], FiO2 decreased to 40% CVS: Cardiac arrest: pacemaker interrogation showed Vfib, vacation sedation, Propofol 5 mcg/KG/MIN stopped Pressors: Dopamine DC and Norepinephrine 5 mcg/kg/min continue ventilatory support f/u ABG tomorrow now on PO amiodarone 400 mg qd furosemide increased and Metolazone increased added Metolazone 5 mg today again HTN: hold antihypertensives for now as patient is on dopamine Non ischemic CAD/Non ischemic cardiomyopathy: cont Lipitor Afib: INR supratherapeutic hold coumadin for now Digoxin if HR increases Digoxin level within range HLD: lipitor 80mg HS ID: -MRSA sputum -Vanco level ordered this AM -blood cultures pending Pulm: COPD: on home oxygen PRN continue ventilatory support for now broncho dilators Obstructive Sleep Apnea: on vent for now Renal: -will have dialysis today -continue Furosemide CKD stage 3: at baseline renally dose all medications monitor Cr Endo: Hyperglycemia: A1C 6.4 Insulin sliding scale FEN: keep net negative fluid balance. [employer] consulted for tube feeds, will continue Glucerna tube feeds PPx: INR supratherapeutic, Protonix Dispo: continue ICU monitor. Discussed with , full code. Problem List - Problems (1) A-fib Code(s): I48.91 - UNSPECIFIED ATRIAL FIBRILLATION Qualifiers: Qualified Code(s): I48.91 - Unspecified atrial fibrillation (2) Acute on chronic diastolic CHF (congestive heart failure) Code(s): I50.33 - ACUTE ON CHRONIC DIASTOLIC (CONGESTIVE) HEART FAILURE (3) Anemia Code(s): D64.9 - ANEMIA, UNSPECIFIED (4) CKD (chronic kidney disease) Code(s): N18.9 - CHRONIC KIDNEY DISEASE, UNSPECIFIED Qualifiers: Qualified Code(s): N18.4 - Chronic kidney disease, stage 4 (severe) (5) Cardiac arrest Code(s): I46.9 - CARDIAC ARREST, CAUSE UNSPECIFIED (6) DVT prophylaxis Code(s): [id number] - (7) HTN (hypertension) Code(s): I10 - ESSENTIAL (PRIMARY) HYPERTENSION (8) Hyperkalemia Code(s): E87.5 - HYPERKALEMIA (9) Hyperlipidemia Code(s): E78.5 - HYPERLIPIDEMIA, UNSPECIFIED (10) 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 hypertension Code(s): I27.2 - OTHER SECONDARY PULMONARY HYPERTENSION (11) Sleep apnea Code(s): G47.30 - SLEEP APNEA, UNSPECIFIED Visit type - Emergency Visit Emergency Visit: Yes ED Registration Date: 03/17/17 Care time: The patient presented to the Emergency Department on the above date and was hospitalized for further evaluation of their emergent condition. - New Patient This patient is new to me today: No - Critical Care Critical Care patient: Yes Total Critical Care Time (in minutes): 50 Critical Care Statement: The care of this patient involved high complexity decision making to prevent further life threatening deterioration of the patient 's condition and/or to evalute & treat vital organ system(s) failure or risk of failure.
[2017-03-27] MEDS: ATORVASTATIN CA 80 MG TABLET (FP) NGT SCH (21:43)
[2017-03-27] MEDS: CHLORHEXIDINE GLUCONATE 4% CLEANSER FOR DECOLONIZATION TP SCH (21:43)
[2017-03-28] MEDS: HYDROCORTISONE SOD SUCCINATE 100 MG/2 ML VIAL IVPB SCH ×3 (02:15→17:37)
[2017-03-28] MEDS ORDERED: FUROSEMIDE 100 MG/10 ML INJECTABLE VIAL ONE ×3 (04:35→19:54)
[2017-03-28 06:28] LABS: MCH 25.4 pg (25.7-33.7); MCHC 31.8 g/dl (32.0-35.9); MEAN PLT VOLUME 8.9 fl (7.5-11.1); PLATELET COUNT 187 K/MM3 (134-434); RDW 18.8 % (11.9-15.9); WHITE BLOOD COUNT 12.6 K/mm3 (4.0-10.0)
[2017-03-28 07:09] LABS: ALBUMIN 2.4 g/dl (3.4-5.0); BILIRUBIN,TOTAL 0.5 mg/dL (0.2-1.0); CALCIUM 7.4 mg/dL (8.5-10.1); COCKROFT - GAULT 35.79; CREATININE 3.7 mg/dL (0.7-1.3); TOT PROT 5.5 g/dl (6.4-8.2)
[2017-03-28] MEDS: INSULIN SLIDING SCALE (NOVOLOG) 1 VIAL SQ SCH ×4 (07:19→22:28)
[2017-03-28] MEDS: HEPARIN - 25,000 UNIT in SODIUM CHLORIDE 495 ML IV SCH ×2 (08:00→19:00)
--- NOTE | 2017-03-28 08:13 | PN ---
Progress Note, Physician Chief Complaint: Coverage for Ambika Seen and examined in ICU Intubated, on heparin and Lasix. On Levo Tele: Paced, no malignant arrhythmias. Opens eyes to name - Current Medication List Current Medications: Active Medications Albumin Human (Albumin Human 25%) 12.5 gm IVPB Q30M [facility] Amiodarone HCl (Cordarone -) 400 mg PO DAILY SARAH Last Admin: 03/27/17 09:19 Dose: 400 mg Atorvastatin Calcium (Lipitor -) 80 mg NGT HS SARAH Last Admin: 03/27/17 21:43 Dose: 80 mg Chlorhexidine Gluconate (Hibiclens For Decolonization -) 1 applic TP HS SARAH Last Admin: 03/27/17 21:43 Dose: 1 applic Chlorhexidine Gluconate (Peridex -) 15 ml MM BID SARAH Last Admin: 03/27/17 21:43 Dose: 15 ml Heparin Sodium (Porcine) (Heparin -) 1,000 unit IVPUSH PRN PRN PRN Reason: Heparin Last Admin: 03/24/17 16:50 Dose: 1,000 unit Heparin Sodium (Porcine) (Heparin -) 5,000 unit IVPUSH PRN PRN PRN Reason: Heparin Hydrocortisone Sodium Succinate (Solu-Cortef -) 100 mg IVPB Q8H-IV SARAH Last Admin: 03/28/17 02:15 Dose: 100 mg Furosemide 100 mg/ Dextrose 100 mls @ 10 mls/hr IVPB TITR SARAH PRN Reason: 10 MG/HR Last Admin: 03/27/17 13:17 Dose: 15 mls/hr Norepinephrine Bitartrate 8, (000 mcg/ Dextrose) 500 mls @ 18.75 mls/hr IV TITR SARAH; 5 MCG/MIN PRN Reason: Protocol Last Titration: 03/27/17 17:41 Dose: 15 mcg/min Heparin Sodium (Porcine) 25, (000 unit/ Sodium Chloride) 500 mls @ 20 mls/hr IV TITR SARAH; 1,000 UNIT/HR PRN Reason: Protocol Last Admin: 03/27/17 17:45 Dose: Not Given Dopamine HCl/Dextrose (Dopamine 400 Mg/D5w -) 250 mls @ 27.375 mls/hr IVPB TITR SARAH; 5 MCG/KG/MIN PRN Reason: Protocol Last Admin: 03/27/17 13:17 Dose: Not Given Propofol (Diprivan -) 100 mls @ 4.38 mls/hr IVPB TITR SARAH; 5 MCG/KG/MIN PRN Reason: Protocol Last Admin: 03/27/17 12:24 Dose: 10 mls/hr Insulin Aspart (Novolog Vial Sliding Scale -) 1 vial SQ ACHS SARAH PRN Reason: Protocol Last Admin: 03/28/17 07:19 Dose: 4 units Pantoprazole Sodium (Protonix 40mg Ivpb (Pre-Docked)) 40 mg IVPB DAILY [facility] Last Admin: 03/27/17 09:20 Dose: 40 mg - Objective Vital Signs: Vital Signs Temperature 98 F 03/28/17 00:00 Pulse Rate 68 03/28/17 07:41 Respiratory Rate 22 03/28/17 07:41 Blood Pressure 96/57 03/28/17 07:41 O2 Sat by Pulse Oximetry (%) 94 L 03/28/17 07:40 Constitutional: Yes: Other (+ ETT) Cardiovascular: Yes: Regular Rate and Rhythm Respiratory: Yes: Other (= breath sounds, no wheezing) Gastrointestinal: Yes: Soft, Abdomen, Obese Edema: Yes Edema: LLE: 2+, RLE: 2+ Labs: CBC, BMP 03/28/17 05:30 03/28/17 05:30 INR, PTT INR 1.53 (0.82-1.09) H 03/23/17 05:35 Microbiology 03/23/17 21:00 Blood - Peripheral Venous Blood Culture - Preliminary NO GROWTH OBTAINED AFTER 96 HOURS, INCUBATION TO CONTINUE FOR 1 DAYS. 03/23/17 20:40 Blood - Peripheral Venous Blood Culture - Preliminary NO GROWTH OBTAINED AFTER 96 HOURS, INCUBATION TO CONTINUE FOR 1 DAYS. Laboratory Tests 03/27/17 03/28/17 03/28/17 05:15 05:30 05:30 WBC 12.6 H Hgb 9.0 L Plt Count 187 PTT (Actin FS) 72.4 H Pending Sodium Potassium Anion Gap BUN Creatinine Total Bilirubin AST ALT Alkaline Phosphatase 03/28/17 05:30 WBC Hgb Plt Count PTT (Actin FS) Sodium 134 L Potassium 3.3 L Anion Gap 19 H BUN 109 H* Creatinine 3.7 H Total Bilirubin 0.5 D AST 16 D ALT 17 Alkaline Phosphatase 66 - ....Imaging EKG: Image Reviewed Assessment/Plan IMPRESSION AND PLAN: 76 y/o man with h/o Severe cardiomypathy( non ischemic ) ,with severely reduced EF, and PuLm HTN, Diastolic dysfunction , AFon AC, who presented with cardiac arrest (V fib ) from his skilled nursing 1. S/P cardiac arrest s/p hypothermic protocol: due to severe Right sided cardiomyopathy ,with Severe non-ischemic cardiomypoathy, patient has an ICD. On levophed for BP support. -cont Amio.400 mg po daily 2. Acute hypoxic respiratory failure s/p Intubation unable to wean him off: Plan for HD for volume removal 3. Sputum with MRSA: Abx per ID 4. Acute on chronic systolic and diastolic heart failure on lasix gtt.continue. For HD 5. A fib: rate is controlled on heparin drip continue 6. CKD : with refractory volume overload for HD Juanpablo Apple
--- NOTE | 2017-03-28 08:45 | PN ---
Progress Note, Physician History of Present Illness: Awake on ventilator Afebrile on steroids Hypotensive on pressors WBC slightly elevated CXR show opacification of L hemithorax - Current Medication List Current Medications: Active Medications Albumin Human (Albumin Human 25%) 12.5 gm IVPB Q30M [facility] Amiodarone HCl (Cordarone -) 400 mg PO DAILY SARAH Last Admin: 03/27/17 09:19 Dose: 400 mg Atorvastatin Calcium (Lipitor -) 80 mg NGT HS SARAH Last Admin: 03/27/17 21:43 Dose: 80 mg Chlorhexidine Gluconate (Hibiclens For Decolonization -) 1 applic TP HS SARAH Last Admin: 03/27/17 21:43 Dose: 1 applic Chlorhexidine Gluconate (Peridex -) 15 ml MM BID SARAH Last Admin: 03/27/17 21:43 Dose: 15 ml Heparin Sodium (Porcine) (Heparin -) 1,000 unit IVPUSH PRN PRN PRN Reason: Heparin Last Admin: 03/24/17 16:50 Dose: 1,000 unit Heparin Sodium (Porcine) (Heparin -) 5,000 unit IVPUSH PRN PRN PRN Reason: Heparin Hydrocortisone Sodium Succinate (Solu-Cortef -) 100 mg IVPB Q8H-IV SARAH Last Admin: 03/28/17 02:15 Dose: 100 mg Furosemide 100 mg/ Dextrose 100 mls @ 10 mls/hr IVPB TITR SARAH PRN Reason: 10 MG/HR Last Admin: 03/27/17 13:17 Dose: 15 mls/hr Norepinephrine Bitartrate 8, (000 mcg/ Dextrose) 500 mls @ 18.75 mls/hr IV TITR SARAH; 5 MCG/MIN PRN Reason: Protocol Last Titration: 03/27/17 17:41 Dose: 15 mcg/min Heparin Sodium (Porcine) 25, (000 unit/ Sodium Chloride) 500 mls @ 20 mls/hr IV TITR SARAH; 1,000 UNIT/HR PRN Reason: Protocol Last Admin: 03/27/17 17:45 Dose: Not Given Dopamine HCl/Dextrose (Dopamine 400 Mg/D5w -) 250 mls @ 27.375 mls/hr IVPB TITR SARAH; 5 MCG/KG/MIN PRN Reason: Protocol Last Admin: 03/27/17 13:17 Dose: Not Given Propofol (Diprivan -) 100 mls @ 4.38 mls/hr IVPB TITR SARAH; 5 MCG/KG/MIN PRN Reason: Protocol Last Admin: 03/27/17 12:24 Dose: 10 mls/hr Insulin Aspart (Novolog Vial Sliding Scale -) 1 vial SQ ACHS SARAH PRN Reason: Protocol Last Admin: 03/28/17 07:19 Dose: 4 units Pantoprazole Sodium (Protonix 40mg Ivpb (Pre-Docked)) 40 mg IVPB DAILY [facility] Last Admin: 03/27/17 09:20 Dose: 40 mg - Objective Vital Signs: Vital Signs Temperature 98 F 03/28/17 00:00 Pulse Rate 68 03/28/17 07:41 Respiratory Rate 22 03/28/17 07:41 Blood Pressure 96/57 03/28/17 07:41 O2 Sat by Pulse Oximetry (%) 94 L 03/28/17 07:40 Constitutional: Yes: Obese Eyes: Yes: Conjunctiva Clear Cardiovascular: Yes: Regular Rate and Rhythm, S1, S2 Respiratory: Yes: Mechanically Ventilated Gastrointestinal: Yes: Normal Bowel Sounds, Soft, Abdomen, Obese. No: Tenderness Edema: Yes Labs: CBC, BMP 03/28/17 05:30 03/28/17 05:30 INR, PTT INR 1.53 (0.82-1.09) H 03/23/17 05:35 Assessment/Plan S/P cardiopulmonary arrest Respiratory failure Opacified L hemithorax Renal failure + sputum c/s MRSA Continue ventilatory support Vancomycin level theraputic Check vancomycin level am Contact precautions
[2017-03-28] MEDS: NOREPINEPHRINE BITARTRATE 8,000 MCG in DEXTROSE 5%-WATER - 492 ML IV SCH ×2 (09:00→17:38)
[2017-03-28] MEDS ORDERED: NOREPINEPHRINE BITARTRATE 4 MG/4 ML ML IV ONE ×3 (09:03→21:52)
--- NOTE | 2017-03-28 09:12 | PN ---
Progress Note (short form) - Note Progress Note: PULMONARY/CCM Pt seen and examined in the ICU. Remains intubated, sedated but arousable. On levophed and lasix gtts. Received 2 hrs HD yesterday. Last Vital Signs Temp Pulse Resp BP Pulse Ox 98 F 68 22 96/57 94 L 03/28/17 00:00 03/28/17 07:41 03/28/17 08:45 03/28/17 07:41 03/28/17 08:45 Intake & Output 03/25/17 03/26/17 03/27/17 03/28/17 23:59 23:59 23:59 23:59 Intake Total 3662 4255.2 3849.8 1621 Output Total 7317 287 5760 1400 Balance 2062 3405.2 2349.8 221 Weight 334 lb 3.532 oz 336 lb 10.334 oz 336 lb 6.806 oz 339 lb 1 oz Gen: intubated, arousable, +anasarca Heart: RRR Lung: distant breath sounds, scattered rhonchi Abd: soft, nontender, obese Ext: +edema CBC, BMP 03/28/17 05:30 03/28/17 05:30 Active Medications Albumin Human (Albumin Human 25%) 12.5 gm IVPB Q30M [facility] Amiodarone HCl (Cordarone -) 400 mg PO DAILY [facility] Last Admin: 03/27/17 09:19 Dose: 400 mg Atorvastatin Calcium (Lipitor -) 80 mg NGT HS [facility] Last Admin: 03/27/17 21:43 Dose: 80 mg Chlorhexidine Gluconate (Hibiclens For Decolonization -) 1 applic TP HS [facility] Last Admin: 03/27/17 21:43 Dose: 1 applic Chlorhexidine Gluconate (Peridex -) 15 ml MM BID SARAH Last Admin: 03/27/17 21:43 Dose: 15 ml Heparin Sodium (Porcine) (Heparin -) 1,000 unit IVPUSH PRN PRN PRN Reason: Heparin Last Admin: 03/24/17 16:50 Dose: 1,000 unit Heparin Sodium (Porcine) (Heparin -) 5,000 unit IVPUSH PRN PRN PRN Reason: Heparin Hydrocortisone Sodium Succinate (Solu-Cortef -) 100 mg IVPB Q8H-IV SARAH Last Admin: 05/13/17 02:15 Dose: 100 mg Furosemide 100 mg/ Dextrose 100 mls @ 10 mls/hr IVPB TITR SARAH PRN Reason: 10 MG/HR Last Admin: 03/27/17 13:17 Dose: 15 mls/hr Norepinephrine Bitartrate 8, (000 mcg/ Dextrose) 500 mls @ 18.75 mls/hr IV TITR SARAH; 5 MCG/MIN PRN Reason: Protocol Last Titration: 03/27/17 17:41 Dose: 15 mcg/min Heparin Sodium (Porcine) 25, (000 unit/ Sodium Chloride) 500 mls @ 20 mls/hr IV TITR SARAH; 1,000 UNIT/HR PRN Reason: Protocol Last Admin: 03/27/17 17:45 Dose: Not Given Dopamine HCl/Dextrose (Dopamine 400 Mg/D5w -) 250 mls @ 27.375 mls/hr IVPB TITR SARAH; 5 MCG/KG/MIN PRN Reason: Protocol Last Admin: 03/27/17 13:17 Dose: Not Given Propofol (Diprivan -) 100 mls @ 4.38 mls/hr IVPB TITR SARAH; 5 MCG/KG/MIN PRN Reason: Protocol Last Admin: 03/27/17 12:24 Dose: 10 mls/hr Insulin Aspart (Novolog Vial Sliding Scale -) 1 vial SQ ACHS SARAH PRN Reason: Protocol Last Admin: 03/28/17 07:19 Dose: 4 units Pantoprazole Sodium (Protonix 40mg Ivpb (Pre-Docked)) 40 mg IVPB DAILY SARAH Last Admin: 03/27/17 09:20 Dose: 40 mg A/P s/p Vfib Cardiac Arrest Acute on Chronic Hypoxic Respiratory Failure Acute on Chronic Diastolic Heart Failure Severe Pulmonary HTN s/p BiV PPM CAD +Troponins Atrial Fibrillation HTN CKD Hyperlipidemia DM COPD Morbid Obesity Obstructive Sleep Apnea - s/p hypothermia protocol - keep K>4, Mg>2 - continue amiodarone - continue anticoagulation - lasix gtt per renal - monitor urine output, creatinine - HD per renal - titrate levophed gtt to maintain MAP >65 - poor visualization of left hemithorax on bedside ultrasound, will need CT chest when more stable - taper FiO2 to keep SpO2 >90%, decreased Fio2 to 40%, PEEP to 5 - daily sedation vacations to assess mental status - spontaneous breathing trials as tolerated - enteral feeds - DVT/GI prophylaxis - continue ICU monitoring - will likely need tracheostomy critical care time spent in reviewing chart, evaluating patient and formulating plan 40 min
--- NOTE | 2017-03-28 10:23 | PN ---
Progress Note (short form) - Note Progress Note: Renal Follow up for SUJATA/Fluid overload Pt seen and examined in the ICU s/p dialysis and UF yesterday with total of 2.7L removed. Urine output ~1.5 L yesterday. pt arouseable off sedation rectal tube in place with loose stools on Vent with 40% FiO2 on Levophed 15mcg Vital Signs Temperature 98 F 03/28/17 00:00 Pulse Rate 68 03/28/17 07:41 Respiratory Rate 22 03/28/17 09:10 Blood Pressure 96/57 03/28/17 07:41 O2 Sat by Pulse Oximetry (%) 94 L 03/28/17 08:45 Intake & Output 03/25/17 03/26/17 03/27/17 03/28/17 23:59 23:59 23:59 23:59 Intake Total 3662 4255.2 3849.8 1621 Output Total 1344 021 4585 1400 Balance 2062 3405.2 2349.8 221 Weight 334 lb 3.532 oz 336 lb 10.334 oz 336 lb 6.806 oz 339 lb 1 oz Gen: on Vent, awake CVS: RRR, No M/R Lungs: DEC BS throughout the lung ortiz, no rales Abd: soft, Obese, ND Ext: 2+ edema in LE, no cyanosis, warm ext : Ridley in place CBC, BMP 03/28/17 05:30 03/28/17 05:30 Current Medications Albumin Human (Albumin Human 25%) 12.5 gm IVPB Q30M [facility] Amiodarone HCl (Cordarone -) 400 mg PO DAILY [facility] Last Admin: 03/27/17 09:19 Dose: 400 mg Atorvastatin Calcium (Lipitor -) 80 mg NGT HS [facility] Last Admin: 03/27/17 21:43 Dose: 80 mg Chlorhexidine Gluconate (Hibiclens For Decolonization -) 1 applic TP HS [facility] Last Admin: 03/27/17 21:43 Dose: 1 applic Chlorhexidine Gluconate (Peridex -) 15 ml MM BID [facility] Last Admin: 03/27/17 21:43 Dose: 15 ml Heparin Sodium (Porcine) (Heparin -) 1,000 unit IVPUSH PRN PRN PRN Reason: Heparin Last Admin: 03/24/17 16:50 Dose: 1,000 unit Heparin Sodium (Porcine) (Heparin -) 5,000 unit IVPUSH PRN PRN PRN Reason: Heparin Hydrocortisone Sodium Succinate (Solu-Cortef -) 50 mg IVPB Q8H-IV SARAH Furosemide 100 mg/ Dextrose 100 mls @ 10 mls/hr IVPB TITR SARAH PRN Reason: 10 MG/HR Last Admin: 03/27/17 13:17 Dose: 15 mls/hr Norepinephrine Bitartrate 8, (000 mcg/ Dextrose) 500 mls @ 18.75 mls/hr IV TITR SARAH; 5 MCG/MIN PRN Reason: Protocol Last Titration: 03/27/17 17:41 Dose: 15 mcg/min Heparin Sodium (Porcine) 25, (000 unit/ Sodium Chloride) 500 mls @ 20 mls/hr IV TITR SARAH; 1,000 UNIT/HR PRN Reason: Protocol Last Admin: 03/27/17 17:45 Dose: Not Given Dopamine HCl/Dextrose (Dopamine 400 Mg/D5w -) 250 mls @ 27.375 mls/hr IVPB TITR SARAH; 5 MCG/KG/MIN PRN Reason: Protocol Last Admin: 03/27/17 13:17 Dose: Not Given Propofol (Diprivan -) 100 mls @ 4.38 mls/hr IVPB TITR SARAH; 5 MCG/KG/MIN PRN Reason: Protocol Last Admin: 03/27/17 12:24 Dose: 10 mls/hr Insulin Aspart (Novolog Vial Sliding Scale -) 1 vial SQ ACHS SARAH PRN Reason: Protocol Last Admin: 03/28/17 07:19 Dose: 4 units Pantoprazole Sodium (Protonix 40mg Ivpb (Pre-Docked)) 40 mg IVPB DAILY SARAH Last Admin: 03/27/17 09:20 Dose: 40 mg A/P 76 year old Gentleman with PMhx of CKD, CHF, Hypertension, Afib, Obesity, Prostate Ca who presented s/p cardiac arrest with SUJATA and Volume overload #Non-Oliguric Acute on Chronic renal insufficiency with volume overload Tolerated dialysis yesterday with 2.7L fluid removal will plan for dialysis today 2.5 hours and 1.5 hour UF following will attempt to remove 3-3.5L if BP will tolerate continue Levophed CVP is 18 continue Lasix gtt Dose all meds for Cr Cl less then 10 #Shock/Resp Failure continue pressers, hydrocortisone keep MAP > 65 titrate pressers as per ICU Prognosis is guarded Thank you Garry Drew DO
[2017-03-28] MEDS: AMIODARONE HCL 200 MG TABLET (FP) PO SCH (10:24)
[2017-03-28] MEDS: PANTOPRAZOLE SODIUM 40 MG/100 ML PRE-DOCKED IVPB SCH (10:27)
[2017-03-28] MEDS: HEPARIN NA (PORCINE) 5,000 UNITS/ML 1ML VIAL IVPUSH PRN (10:59)
[2017-03-28] MEDS: ALBUMIN HUMAN 25% 12.5 GM/50 ML VIAL IVPB SCH ×3 (12:00→13:59)
[2017-03-28] MEDS: DOPAMINE 400 MG/D5W - 250 ML IVPB SCH (12:18)
[2017-03-28] MEDS: CHLORHEXIDINE GLUCONATE 0.12% 15ML CUP MM SCH ×2 (12:22→22:27)
[2017-03-28] MEDS: FUROSEMIDE INJECTION 100 MG in DEXTROSE 5%-WATER - 90 ML IVPB SCH (13:16)
[2017-03-28] MEDS: PROPOFOL 100 ML IVPB SCH (13:54)
[2017-03-28] MEDS ORDERED: INSULIN (NOVOLOG) ASPART 100 UNITS/ML 10ML VIAL ONE (17:27)
--- NOTE | 2017-03-28 18:58 | PN ---
Physical Exam: SUBJECTIVE: Patient seen and examined Patient continues to be in ICU, continues to have loose stools has a rectal tube. OBJECTIVE: Vital Signs Temperature 97.6 F 03/28/17 16:00 Pulse Rate 70 03/28/17 17:38 Respiratory Rate 23 03/28/17 18:01 Blood Pressure 107/68 03/28/17 17:38 O2 Sat by Pulse Oximetry (%) 96 03/28/17 17:56 GENERAL: The patient is on the vent. arousable HEAD: NC,AT. no signs of trauma. EYES: opens the eyes , sclera anicteric, conjunctiva clear. ENT: intubated on the vent. LUNGS: intubated on the vent. decreased BS BL . on Vent with 40% FiO2 HEART: Regular rate and rhythm, S1, S2 positive, MONICA 2/6 ,no rub or gallop. ABDOMEN: Soft, nontender, large abdomen, normoactive bowel sounds, no guarding , no rebound. EXTREMITIES: 2+ pulses, 3 plus edema NEUROLOGICAL: Cranial nerves II through XII grossly intact. gait not observed. PSYCH: unable to access intubated SKIN: Warm, no rashes or lesions noted Laboratory Results - last 24 hr 03/27/17 03/28/17 03/28/17 21:38 05:30 05:30 WBC 12.6 H RBC 3.54 L Hgb 9.0 L Hct 28.3 L MCV 80.0 MCHC 31.8 L RDW 18.8 H Plt Count 187 MPV 8.9 PTT (Actin FS) 49.0 H D Sodium Potassium Chloride Carbon Dioxide Anion Gap BUN Creatinine Creat Clearance w eGFR POC Glucometer 295.89384 Random Glucose Calcium Total Bilirubin AST ALT Alkaline Phosphatase Total Protein Albumin Random Vancomycin 03/28/17 03/28/17 03/28/17 05:30 06:00 11:16 WBC RBC Hgb Hct MCV MCHC RDW Plt Count MPV PTT (Actin FS) Sodium 134 L Potassium 3.3 L Chloride 90 L Carbon Dioxide 25 Anion Gap 19 H BUN 109 H* Creatinine 3.7 H Creat Clearance w eGFR 15.97 POC Glucometer 307.29133 Random Glucose 225 H Calcium 7.4 L Total Bilirubin 0.5 D AST 16 D ALT 17 Alkaline Phosphatase 66 Total Protein 5.5 L Albumin 2.4 L Random Vancomycin 20.257 03/28/17 16:10 WBC RBC Hgb Hct MCV MCHC RDW Plt Count MPV PTT (Actin FS) 75.1 H D Sodium Potassium Chloride Carbon Dioxide Anion Gap BUN Creatinine Creat Clearance w eGFR POC Glucometer Random Glucose Calcium Total Bilirubin AST ALT Alkaline Phosphatase Total Protein Albumin Random Vancomycin Active Medications Generic Name Dose Route Start Last Admin Trade Name Freq PRN Reason Stop Dose Admin Amiodarone HCl 400 mg 03/26/17 10:00 03/28/17 10:24 Cordarone - PO 400 mg DAILY SARAH Administration Atorvastatin Calcium 80 mg 03/18/17 09:45 03/27/17 21:43 Lipitor - NGT 80 mg HS SARAH Administration Chlorhexidine Gluconate 1 applic 03/17/17 22:00 03/27/17 21:43 Hibiclens For Decolonization - TP 1 applic HS SARAH Administration Chlorhexidine Gluconate 15 ml 03/18/17 22:15 03/28/17 12:22 Peridex - MM 15 ml BID SARAH Administration Heparin Sodium (Porcine) 1,000 unit 03/22/17 08:38 03/28/17 10:59 Heparin - IVPUSH 1,000 unit PRN PRN Administration Heparin Heparin Sodium (Porcine) 5,000 unit 03/22/17 08:38 Heparin - IVPUSH PRN PRN Heparin Hydrocortisone Sodium Succinate 50 mg 03/28/17 10:00 03/28/17 17:37 Solu-Cortef - IVPB 50 mg Q8H-IV SARAH Administration Furosemide 100 mg/ Dextrose 100 mls @ 10 mls/hr 03/21/17 13:45 03/28/17 13:16 IVPB 15 mls/hr TITR SARAH Administration 10 MG/HR Norepinephrine Bitartrate 8, 500 mls @ 18.75 mls/hr 03/22/17 08:45 03/28/17 17: 38 000 mcg/ Dextrose IV 56.25 mls/hr TITR SARAH Administration Protocol 5 MCG/MIN Heparin Sodium (Porcine) 25, 500 mls @ 20 mls/hr 03/22/17 08:45 03/28/17 08:00 000 unit/ Sodium Chloride IV 24 mls/hr TITR SARAH Administration Protocol 1,000 UNIT/HR Dopamine HCl/Dextrose 250 mls @ 27.375 mls/hr 03/23/17 12:00 03/28/17 12:18 Dopamine 400 Mg/D5w - IVPB Not Given TITR SARAH Protocol 5 MCG/KG/MIN Propofol 100 mls @ 4.38 mls/hr 03/23/17 12:00 03/28/17 13:54 Diprivan - IVPB 7.534 mls/hr TITR SARAH Administration Protocol 5 MCG/KG/MIN Insulin Aspart 1 vial 03/24/17 07:00 03/28/17 17:38 Novolog Vial Sliding Scale - SQ 6 units ACHS SARAH Administration Protocol Pantoprazole Sodium 40 mg 03/18/17 10:00 03/28/17 10:27 Protonix 40mg Ivpb (Pre-Docked) IVPB 40 mg DAILY SARAH Administration Home Medications Medication Instructions Recorded Allopurinol 300 mg PO DAILY 03/17/17 Digoxin [Lanoxin -] 0.125 mg PO DAILY 03/17/17 Docusate Sodium [Colace -] 300 mg PO HS 03/17/17 Ferrous Sulfate 650 mg PO BID 03/17/17 Furosemide [Lasix -] 80 mg PO DAILY 03/17/17 Latanoprost 0.005% Eye Drops 1 drop OU HS 03/17/17 [Xalatan 0.005% Eye Drops -] Metolazone [Zaroxolyn -] 2.5 mg PO AM 03/17/17 Nystatin Cream [Mycostatin] 1 applic TP BID 03/17/17 Polyethylene Glycol 3350 [Miralax 17 gm PO DAILY 03/17/17 (For Daily Use) -] Sennosides [Evac-U-Gen] 2 tab PO DAILY 03/17/17 Simvastatin [Zocor -] 80 mg PO HS 03/17/17 Sod Lactate/Amm Lact/Pot Lact 1 applic TP BID 03/17/17 [Amlactin Ultra Body Cream] Triamcinolone 0.1% Cream 1 applic TP BID 03/17/17 [Aristocort] Warfarin Na [Coumadin -] 7.5 mg PO Q7D 03/17/17 Warfarin Sodium [Coumadin] 5 mg PO ASDIR 03/17/17 cXR: Left lung almost complete opacification ASSESSMENT AND PLAN: 76 y/o man with h/o Severe cardiomypathy( non ischemic ) ,with severely reduced EF, and PULm HTN, Diastolic dysfunction , A fib on AC, who presented with cardiac arrest (V fib ) from his fci # S/P cardiac arrest s/p hypothermic protocol: due to severe Right sided cardiomyopathy ,with severe non-ischemic cardiomypoathy, patient has a defibrillator ,was interrogated on admission .On levophed 15mcg and Dopamine continue for BP support , to be tapered off slowly, cont Amio.400 mg po daily per Gtube. # Acute hypoxic respiratory failure s/p Intubation unable to wean him off: due to having almost complete left opacification of left lung/Anasarca ,started dialysis with s/p dialysis and UF yesterday with total of 2.7L removed. Urine output ~1.5 L yesterday. on Vent with 40% FiO2 # sputum with MRSA on IV Vancmycin continue. further IV antibiotic per ID. # Acute on chronic systolic and diastolic heart failure on lasix gtt.continue. Will try to reduce the fluid intake by making it double concentration. still in positive fluid balance despite being on lasix gtt. # LEFT Lung ; almost complete opacification s/p intabation and dialysis # A fib: rate is controlled on heparin drip continue # Coumadin coagulopathy: resolved # CKD : Cr slightly increased monitor , renal on the case . DVT px :on heparin drip Visit type - Emergency Visit Emergency Visit: Yes ED Registration Date: 03/17/17 Care time: The patient presented to the Emergency Department on the above date and was hospitalized for further evaluation of their emergent condition. - New Patient This patient is new to me today: No - Critical Care Critical Care patient: No
[2017-03-28] MEDS: ATORVASTATIN CA 80 MG TABLET (FP) NGT SCH (22:27)
[2017-03-28] MEDS: CHLORHEXIDINE GLUCONATE 4% CLEANSER FOR DECOLONIZATION TP SCH (22:29)
[2017-03-29] MEDS ORDERED: PROPOFOL 100 ML ONE (01:30)
[2017-03-29] MEDS: HYDROCORTISONE SOD SUCCINATE 100 MG/2 ML VIAL IVPB SCH ×3 (02:30→17:05)
[2017-03-29] MEDS ORDERED: FUROSEMIDE 100 MG/10 ML INJECTABLE VIAL ONE ×3 (02:38→16:35)
[2017-03-29 06:31] LABS: MCH 25.9 pg (25.7-33.7); MCHC 32.5 g/dl (32.0-35.9); MEAN CELL VOLUME 79.5 fl (80-96); PLATELET COUNT 160 K/MM3 (134-434); RDW 18.7 % (11.9-15.9); WHITE BLOOD COUNT 13.6 K/mm3 (4.0-10.0)
[2017-03-29 06:45] LABS: ALBUMIN 2.7 g/dl (3.4-5.0); BILIRUBIN,TOTAL 0.5 mg/dL (0.2-1.0); CALCIUM 7.4 mg/dL (8.5-10.1); COCKROFT - GAULT 40.13; CREATININE 3.3 mg/dL (0.7-1.3); MAGNESIUM 2.6 mg/dL (1.8-2.4); PHOSPHOROUS 3.5 mg/dL (2.5-4.9); TOT PROT 5.6 g/dl (6.4-8.2)
[2017-03-29] MEDS: PROPOFOL 100 ML IVPB SCH ×2 (07:00→14:41)
--- NOTE | 2017-03-29 07:03 | PN ---
Progress Note (short form) - Note Progress Note: Renal Follow up for SUJATA/Fluid overload Pt seen and examined in the ICU s/p 2nd dialysis yesterday with 3.5 L UF currently sedated on the Vent Levophed at 13g continues to have decent urine output + diarrhea Vital Signs Temperature 97.5 F L 03/29/17 02:00 Pulse Rate 67 03/29/17 02:00 Respiratory Rate 27 H 03/29/17 06:52 Blood Pressure 85/56 03/29/17 02:00 O2 Sat by Pulse Oximetry (%) 97 03/28/17 21:00 Intake & Output 03/26/17 03/27/17 03/28/17 03/29/17 23:59 23:59 23:59 23:59 Intake Total 4255.2 3849.8 3826.0 Output Total 850 1500 1800 Balance 3405.2 2349.8 2026.0 Weight 336 lb 10.334 oz 336 lb 6.806 oz 339 lb 1 oz Total output in last 24 hours 5.3L Gen: on Vent, sedated CVS: RRR, No M/R Lungs: DEC BS throughout the lung ortiz, no rales Abd: soft, Obese, ND Ext: 2+ edema in LE, no cyanosis, warm ext : Ridley in place CBC, BMP 03/29/17 05:20 03/29/17 05:20 Current Medications Amiodarone HCl (Cordarone -) 400 mg PO DAILY [facility] Last Admin: 03/28/17 10:24 Dose: 400 mg Atorvastatin Calcium (Lipitor -) 80 mg NGT HS [facility] Last Admin: 03/28/17 22:27 Dose: 80 mg Chlorhexidine Gluconate (Hibiclens For Decolonization -) 1 applic TP HS [facility] Last Admin: 03/28/17 22:29 Dose: 1 applic Chlorhexidine Gluconate (Peridex -) 15 ml MM BID [facility] Last Admin: 03/28/17 22:27 Dose: 15 ml Heparin Sodium (Porcine) (Heparin -) 1,000 unit IVPUSH PRN PRN PRN Reason: Heparin Last Admin: 03/28/17 10:59 Dose: 1,000 unit Heparin Sodium (Porcine) (Heparin -) 5,000 unit IVPUSH PRN PRN PRN Reason: Heparin Hydrocortisone Sodium Succinate (Solu-Cortef -) 50 mg IVPB Q8H-IV [facility] Last Admin: 03/29/17 02:30 Dose: 50 mg Furosemide 100 mg/ Dextrose 100 mls @ 10 mls/hr IVPB TITR [facility] PRN Reason: 10 MG/HR Last Admin: 03/28/17 13:16 Dose: 15 mls/hr Norepinephrine Bitartrate 8, (000 mcg/ Dextrose) 500 mls @ 18.75 mls/hr IV TITR SARAH; 5 MCG/MIN PRN Reason: Protocol Last Admin: 03/28/17 17:38 Dose: 56.25 mls/hr Heparin Sodium (Porcine) 25, (000 unit/ Sodium Chloride) 500 mls @ 20 mls/hr IV TITR SARAH; 1,000 UNIT/HR PRN Reason: Protocol Last Admin: 03/28/17 08:00 Dose: 24 mls/hr Dopamine HCl/Dextrose (Dopamine 400 Mg/D5w -) 250 mls @ 27.375 mls/hr IVPB TITR [facility]AH; 5 MCG/KG/MIN PRN Reason: Protocol Last Admin: 03/28/17 12:18 Dose: Not Given Propofol (Diprivan -) 100 mls @ 4.38 mls/hr IVPB TITR [facility]; 5 MCG/KG/MIN PRN Reason: Protocol Last Admin: 03/28/17 13:54 Dose: 7.534 mls/hr Insulin Aspart (Novolog Vial Sliding Scale -) 1 vial SQ ACHS [facility] PRN Reason: Protocol Last Admin: 03/28/17 22:28 Dose: 4 units Pantoprazole Sodium (Protonix 40mg Ivpb (Pre-Docked)) 40 mg IVPB DAILY [facility] Last Admin: 03/28/17 10:27 Dose: 40 mg Potassium Chloride (Potassium Chloride 20 Meq Premix Ivpb -) 20 meq IVPB Q60M [facility] Stop: 03/29/17 08:01 A/P 76 year old Gentleman with PMhx of CKD, CHF, Hypertension, Afib, Obesity, Prostate Ca who presented s/p cardiac arrest with SUJATA and Volume overload #Non-Oliguric Acute on Chronic renal insufficiency with volume overload Had 2nd dialysis with total of 3.5L UF BP stable on Levophed no plans for dialysis or UF today will plan additional HD with UF tomorrow continue Lasix gtt will attempt to minimize fluid infusions keep MAP> 65 CVP is 15 this AM #Shock/Resp Failure continue pressers, hydrocortisone keep MAP > 65 titrate pressers as per ICU Prognosis is guarded Thank you Garry Drew DO
[2017-03-29] MEDS: INSULIN SLIDING SCALE (NOVOLOG) 1 VIAL SQ SCH ×4 (07:29→21:49)
[2017-03-29] MEDS: POTASSIUM CHLORIDE 20 MEQ PREMIX IVPB 100 ML IVPB SCH ×2 (07:32→09:14)
--- NOTE | 2017-03-29 08:12 | PN ---
Progress Note, Physician Chief Complaint: Few runs of NSVT K+ low, being repleted Intubated On Levo - Current Medication List Current Medications: Active Medications Amiodarone HCl (Cordarone -) 400 mg PO DAILY [facility] Last Admin: 03/28/17 10:24 Dose: 400 mg Atorvastatin Calcium (Lipitor -) 80 mg NGT HS [facility] Last Admin: 03/28/17 22:27 Dose: 80 mg Chlorhexidine Gluconate (Hibiclens For Decolonization -) 1 applic TP HS [facility] Last Admin: 03/28/17 22:29 Dose: 1 applic Chlorhexidine Gluconate (Peridex -) 15 ml MM BID [facility] Last Admin: 03/28/17 22:27 Dose: 15 ml Heparin Sodium (Porcine) (Heparin -) 1,000 unit IVPUSH PRN PRN PRN Reason: Heparin Last Admin: 03/28/17 10:59 Dose: 1,000 unit Heparin Sodium (Porcine) (Heparin -) 5,000 unit IVPUSH PRN PRN PRN Reason: Heparin Hydrocortisone Sodium Succinate (Solu-Cortef -) 50 mg IVPB Q8H-IV [facility] Last Admin: 03/29/17 02:30 Dose: 50 mg Furosemide 100 mg/ Dextrose 100 mls @ 10 mls/hr IVPB TITR [facility] PRN Reason: 10 MG/HR Last Admin: 03/28/17 13:16 Dose: 15 mls/hr Norepinephrine Bitartrate 8, (000 mcg/ Dextrose) 500 mls @ 18.75 mls/hr IV TITR SARAH; 5 MCG/MIN PRN Reason: Protocol Last Admin: 03/29/17 00:00 Dose: 50 mls/hr Heparin Sodium (Porcine) 25, (000 unit/ Sodium Chloride) 500 mls @ 20 mls/hr IV TITR SARAH; 1,000 UNIT/HR PRN Reason: Protocol Last Admin: 03/28/17 19:00 Dose: 26 mls/hr Dopamine HCl/Dextrose (Dopamine 400 Mg/D5w -) 250 mls @ 27.375 mls/hr IVPB TITR SARAH; 5 MCG/KG/MIN PRN Reason: Protocol Last Admin: 03/28/17 12:18 Dose: Not Given Propofol (Diprivan -) 100 mls @ 4.38 mls/hr IVPB TITR SARAH; 5 MCG/KG/MIN PRN Reason: Protocol Last Admin: 03/28/17 13:54 Dose: 7.534 mls/hr Insulin Aspart (Novolog Vial Sliding Scale -) 1 vial SQ ACHS [facility] PRN Reason: Protocol Last Admin: 03/29/17 07:29 Dose: 2 units Pantoprazole Sodium (Protonix 40mg Ivpb (Pre-Docked)) 40 mg IVPB DAILY [facility] Last Admin: 03/28/17 10:27 Dose: 40 mg - Objective Vital Signs: Vital Signs Temperature 97 F L 03/29/17 06:00 Pulse Rate 70 03/29/17 06:00 Respiratory Rate 27 H 03/29/17 06:52 Blood Pressure 113/57 03/29/17 06:00 O2 Sat by Pulse Oximetry (%) 97 03/28/17 21:00 HENT: Yes: Other (+ ETT) Cardiovascular: Yes: Regular Rate and Rhythm Respiratory: Yes: Other (decreased at bases, no wheezing) Gastrointestinal: Yes: Soft Neurological: Yes: Other (sedatad on vent) Labs: CBC, BMP 03/29/17 05:20 03/29/17 05:20 INR, PTT INR 1.53 (0.82-1.09) H 03/23/17 05:35 Laboratory Tests 03/28/17 03/29/17 03/29/17 23:00 05:20 05:20 WBC 13.6 H Hgb 9.1 L Plt Count 160 PTT (Actin FS) 70.3 H Sodium 134 L Potassium 2.9 L* BUN 89 H Creatinine 3.3 H Calcium 7.4 L Phosphorus 3.5 D Magnesium 2.6 H Total Bilirubin 0.5 AST 16 ALT 15 Alkaline Phosphatase 64 - ....Imaging EKG: Image Reviewed Assessment/Plan 76 y/o man with h/o Severe cardiomypathy( non ischemic ) ,with severely reduced EF, and PuLm HTN, Diastolic dysfunction , AFon AC, who presented with cardiac arrest (V fib ) from his group home 1. S/P cardiac arrest s/p hypothermic protocol: due to severe Right sided cardiomyopathy ,with Severe non-ischemic cardiomypoathy, patient has an ICD. On levophed for BP support. -cont Amio.400 mg po daily -some runs of NSVT in setting of hypokalemia, K+ being repleted 2. Acute hypoxic respiratory failure s/p Intubation unable to wean him off: Plan for HD for volume removal, HD yesterday. Planned again tomorrow 3. Sputum with MRSA: Abx per ID 4. Acute on chronic systolic and diastolic heart failure on lasix gtt.continue. Watch K and Mg. HD tomorrow. 5. A fib: rate is controlled on heparin drip continue. PTT goal 50-70 6. CKD : with refractory volume overload, regular HD [employer]
--- NOTE | 2017-03-29 08:31 | PN ---
Teaching Attending Note Name of Resident: Cleve Bourgeois ATTENDING PHYSICIAN STATEMENT I saw and evaluated the patient. I reviewed the resident's note and discussed the case with the resident. I agree with the resident's findings and plan as documented. SUBJECTIVE: Comfortable, no acute changes. still in iCU continues to be on Pressor, OBJECTIVE: Vital Signs Temperature 97 F L 03/29/17 06:00 Pulse Rate 61 03/29/17 08:00 Respiratory Rate 23 03/29/17 08:00 Blood Pressure 95/59 03/29/17 08:00 O2 Sat by Pulse Oximetry (%) 93 L 03/29/17 08:00 CBCD WBC 13.6 K/mm3 (4.0-10.0) H 03/29/17 05:20 RBC 3.51 M/mm3 (4.00-5.60) L 03/29/17 05:20 Hgb 9.1 GM/dL (11.7-16.9) L 03/29/17 05:20 Hct 27.9 % (35.4-49) L 03/29/17 05:20 MCV 79.5 fl (80-96) L 03/29/17 05:20 MCHC 32.5 g/dl (32.0-35.9) 03/29/17 05:20 RDW 18.7 % (11.9-15.9) H 03/29/17 05:20 Plt Count 160 K/MM3 (134-434) 03/29/17 05:20 MPV 9.0 fl (7.5-11.1) 03/29/17 05:20 CMP Sodium 134 mmol/L (136-145) L 03/29/17 05:20 Potassium 2.9 mmol/L (3.5-5.1) L* 03/29/17 05:20 Chloride 94 mmol/L (98-107) L 03/29/17 05:20 Carbon Dioxide 28 mmol/L (21-32) 03/29/17 05:20 Anion Gap 12 (8-16) 03/29/17 05:20 BUN 89 mg/dL (7-18) H 03/29/17 05:20 Creatinine 3.3 mg/dL (0.7-1.3) H 03/29/17 05:20 Creat Clearance w eGFR 18.22 (>60) 03/29/17 05:20 Random Glucose 171 mg/dL (74-106) H D 03/29/17 05:20 Calcium 7.4 mg/dL (8.5-10.1) L 03/29/17 05:20 Total Bilirubin 0.5 mg/dL (0.2-1.0) 03/29/17 05:20 AST 16 U/L (15-37) 03/29/17 05:20 ALT 15 U/L (12-78) 03/29/17 05:20 Alkaline Phosphatase 64 U/L (45-117) 03/29/17 05:20 Total Protein 5.6 g/dl (6.4-8.2) L 03/29/17 05:20 Albumin 2.7 g/dl (3.4-5.0) L 03/29/17 05:20 CARDIAC ENZYMES Creatine Kinase 146 IU/L (39-308) 03/18/17 10:23 Troponin I 0.16 ng/ml (0.00-0.05) H D 03/18/17 10:23 Current Medications Generic Name Dose Route Start Last Admin Trade Name Freq PRN Reason Stop Dose Admin Amiodarone HCl 400 mg 03/26/17 10:00 03/28/17 10:24 Cordarone - PO 400 mg DAILY SARAH Administration Atorvastatin Calcium 80 mg 03/18/17 09:45 03/28/17 22:27 Lipitor - NGT 80 mg HS SARAH Administration Chlorhexidine Gluconate 1 applic 03/17/17 22:00 03/28/17 22:29 Hibiclens For Decolonization - TP 1 applic HS SARAH Administration Chlorhexidine Gluconate 15 ml 03/18/17 22:15 03/28/17 22:27 Peridex - MM 15 ml BID SARAH Administration Heparin Sodium (Porcine) 1,000 unit 03/22/17 08:38 03/28/17 10:59 Heparin - IVPUSH 1,000 unit PRN PRN Administration Heparin Heparin Sodium (Porcine) 5,000 unit 03/22/17 08:38 Heparin - IVPUSH PRN PRN Heparin Hydrocortisone Sodium Succinate 50 mg 03/28/17 10:00 03/29/17 02:30 Solu-Cortef - IVPB 50 mg Q8H-IV [facility]AH Administration Furosemide 100 mg/ Dextrose 100 mls @ 10 mls/hr 03/21/17 13:45 03/28/17 13:16 IVPB 15 mls/hr TITR SARAH Administration 10 MG/HR Norepinephrine Bitartrate 8, 500 mls @ 18.75 mls/hr 03/22/17 08:45 03/29/17 00: 00 000 mcg/ Dextrose IV 50 mls/hr TITR SARAH Administration Protocol 5 MCG/MIN Heparin Sodium (Porcine) 25, 500 mls @ 20 mls/hr 03/22/17 08:45 03/28/17 19:00 000 unit/ Sodium Chloride IV 26 mls/hr TITR SARAH Administration Protocol 1,000 UNIT/HR Dopamine HCl/Dextrose 250 mls @ 27.375 mls/hr 03/23/17 12:00 03/28/17 12:18 Dopamine 400 Mg/D5w - IVPB Not Given TITR SARAH Protocol 5 MCG/KG/MIN Propofol 100 mls @ 4.38 mls/hr 03/23/17 12:00 03/28/17 13:54 Diprivan - IVPB 7.534 mls/hr TITR SARAH Administration Protocol 5 MCG/KG/MIN Insulin Aspart 1 vial 03/24/17 07:00 03/29/17 07:29 Novolog Vial Sliding Scale - SQ 2 units ACHS [facility] Administration Protocol Pantoprazole Sodium 40 mg 03/18/17 10:00 03/28/17 10:27 Protonix 40mg Ivpb (Pre-Docked) IVPB 40 mg DAILY [facility] Administration Home Medications Medication Instructions Recorded Allopurinol 300 mg PO DAILY 03/17/17 Digoxin [Lanoxin -] 0.125 mg PO DAILY 03/17/17 Docusate Sodium [Colace -] 300 mg PO HS 03/17/17 Ferrous Sulfate 650 mg PO BID 03/17/17 Furosemide [Lasix -] 80 mg PO DAILY 03/17/17 Latanoprost 0.005% Eye Drops 1 drop OU HS 03/17/17 [Xalatan 0.005% Eye Drops -] Metolazone [Zaroxolyn -] 2.5 mg PO AM 03/17/17 Nystatin Cream [Mycostatin] 1 applic TP BID 03/17/17 Polyethylene Glycol 3350 [Miralax 17 gm PO DAILY 03/17/17 (For Daily Use) -] Sennosides [Evac-U-Gen] 2 tab PO DAILY 03/17/17 Simvastatin [Zocor -] 80 mg PO HS 03/17/17 Sod Lactate/Amm Lact/Pot Lact 1 applic TP BID 03/17/17 [Amlactin Ultra Body Cream] Triamcinolone 0.1% Cream 1 applic TP BID 03/17/17 [Aristocort] Warfarin Na [Coumadin -] 7.5 mg PO Q7D 03/17/17 Warfarin Sodium [Coumadin] 5 mg PO ASDIR 03/17/17 ASSESSMENT AND PLAN: 76 y/o man with h/o Severe cardiomypathy( non ischemic ) ,with severely reduced EF, and PULm HTN, Diastolic dysfunction , A fib on AC, who presented with cardiac arrest (V fib ) from his retirement # S/P cardiac arrest s/p hypothermic protocol: due to severe Right sided cardiomyopathy ,with Severe non-ischemic cardiomypoathy, patient has a defibrillator ,was interrogated on admission .On levophed and dopamine drip for BP support to continue, to be tapered off slowly, cont Amio.400 mg po daily started on 03/26 # Acute hypoxic respiratory failure s/p Intubation unable to wean him off: due to having almost complete left opacification of left lung/Anasarca ,On dialysis with on UF yesterday with total of 2.7L removed. On Vent with 40% FiO2 # Acute on chronic systolic and diastolic heart failure on lasix gtt.continue. still in positive fluid balance despite being on lasix gtt. # LEFT Lung ; repeat cxr complete opacification # A fib: rate is controlled on heparin drip continue # Coumadin coagulopathy: resolved # CKD : Cr slightly increased monitor , renal on the case . DVT px :on heparin drip
[2017-03-29 08:42] LABS: PLATELET ESTIMATE ADEQUATE (NORMAL)
[2017-03-29 08:43] LABS: ANISOCYTOSIS 1+; HYPOCHROMIA 1+; POLYCHROMASIA FEW
--- NOTE | 2017-03-29 08:44 | PN ---
Progress Note, Physician History of Present Illness: Sedated on ventilator On pressors Afebrile with elevated WBC on steroids - Current Medication List Current Medications: Active Medications Amiodarone HCl (Cordarone -) 400 mg PO DAILY [facility] Last Admin: 03/28/17 10:24 Dose: 400 mg Atorvastatin Calcium (Lipitor -) 80 mg NGT HS [facility] Last Admin: 03/28/17 22:27 Dose: 80 mg Chlorhexidine Gluconate (Hibiclens For Decolonization -) 1 applic TP HS [facility] Last Admin: 03/28/17 22:29 Dose: 1 applic Chlorhexidine Gluconate (Peridex -) 15 ml MM BID [facility] Last Admin: 03/28/17 22:27 Dose: 15 ml Heparin Sodium (Porcine) (Heparin -) 1,000 unit IVPUSH PRN PRN PRN Reason: Heparin Last Admin: 03/28/17 10:59 Dose: 1,000 unit Heparin Sodium (Porcine) (Heparin -) 5,000 unit IVPUSH PRN PRN PRN Reason: Heparin Hydrocortisone Sodium Succinate (Solu-Cortef -) 50 mg IVPB Q8H-IV [facility] Last Admin: 03/29/17 02:30 Dose: 50 mg Furosemide 100 mg/ Dextrose 100 mls @ 10 mls/hr IVPB TITR [facility] PRN Reason: 10 MG/HR Last Admin: 03/28/17 13:16 Dose: 15 mls/hr Norepinephrine Bitartrate 8, (000 mcg/ Dextrose) 500 mls @ 18.75 mls/hr IV TITR SARAH; 5 MCG/MIN PRN Reason: Protocol Last Admin: 03/29/17 00:00 Dose: 50 mls/hr Heparin Sodium (Porcine) 25, (000 unit/ Sodium Chloride) 500 mls @ 20 mls/hr IV TITR SARAH; 1,000 UNIT/HR PRN Reason: Protocol Last Admin: 03/28/17 19:00 Dose: 26 mls/hr Dopamine HCl/Dextrose (Dopamine 400 Mg/D5w -) 250 mls @ 27.375 mls/hr IVPB TITR SARAH; 5 MCG/KG/MIN PRN Reason: Protocol Last Admin: 03/28/17 12:18 Dose: Not Given Propofol (Diprivan -) 100 mls @ 4.38 mls/hr IVPB TITR SARAH; 5 MCG/KG/MIN PRN Reason: Protocol Last Admin: 03/28/17 13:54 Dose: 7.534 mls/hr Potassium Chloride (Potassium Chloride 10 Meq Premix Ivpb -) 100 mls @ 100 mls/ hr IVPB Q60M [facility] Stop: 03/29/17 11:44 Insulin Aspart (Novolog Vial Sliding Scale -) 1 vial SQ ACHS [facility] PRN Reason: Protocol Last Admin: 03/29/17 07:29 Dose: 2 units Pantoprazole Sodium (Protonix 40mg Ivpb (Pre-Docked)) 40 mg IVPB DAILY [facility] Last Admin: 03/28/17 10:27 Dose: 40 mg - Objective Vital Signs: Vital Signs Temperature 97 F L 03/29/17 06:00 Pulse Rate 61 03/29/17 08:00 Respiratory Rate 23 03/29/17 08:00 Blood Pressure 95/59 03/29/17 08:00 O2 Sat by Pulse Oximetry (%) 93 L 03/29/17 08:00 Constitutional: Yes: No Distress Eyes: Yes: Conjunctiva Clear Cardiovascular: Yes: Regular Rate and Rhythm, S1, S2 Respiratory: Yes: Mechanically Ventilated Gastrointestinal: Yes: Normal Bowel Sounds, Soft, Abdomen, Obese. No: Tenderness Edema: Yes Labs: CBC, BMP 03/29/17 05:20 03/29/17 05:20 INR, PTT INR 1.53 (0.82-1.09) H 03/23/17 05:35 Assessment/Plan S/P cardiopulmonary arrest Respiratory failure Opacified L hemithorax Renal failure + sputum c/s MRSA Continue ventilatory support Vancomycin level noted. Will redose Check vancomycin level am Contact precautions
[2017-03-29] MEDS ORDERED: KCL 10 MEQ IVPB 100 ML IVPB SCH (09:00)
[2017-03-29] MEDS ORDERED: VANCOMYCIN 1 GRAM (PRE-DOCKED) 250 ML IVPB ONE (09:00)
[2017-03-29] MEDS ORDERED: PT OWN MED DRAWER 7, Y5N ONE (09:11)
[2017-03-29] MEDS: AMIODARONE HCL 200 MG TABLET (FP) PO SCH (09:23)
[2017-03-29] MEDS: CHLORHEXIDINE GLUCONATE 0.12% 15ML CUP MM SCH ×2 (09:23→21:47)
[2017-03-29] MEDS: PANTOPRAZOLE SODIUM 40 MG/100 ML PRE-DOCKED IVPB SCH (09:29)
--- NOTE | 2017-03-29 09:47 | PN ---
Progress Note (short form) - Note Progress Note: PULMONARY/CCM Pt seen and examined in the ICU. Dialyzed yesterday removing 3.5L. Remains intubated, sedated but arousable. On levophed and lasix gtts. Last Vital Signs Temp Pulse Resp BP Pulse Ox 97 F L 60 21 96/69 93 L 03/29/17 06:00 03/29/17 09:00 03/29/17 09:15 03/29/17 09:00 03/29/17 08:00 Intake & Output 03/26/17 03/27/17 03/28/17 03/29/17 23:59 23:59 23:59 23:59 Intake Total 4255.2 3849.8 3826.0 1880 Output Total 850 1500 1800 400 Balance 3405.2 2349.8 2026.0 1480 Weight 336 lb 10.334 oz 336 lb 6.806 oz 339 lb 1 oz 330 lb 11.094 oz Gen: intubated, arousable, +anasarca Heart: RRR Lung: distant breath sounds, scattered rhonchi Abd: soft, nontender, obese Ext: +edema CBC, BMP 03/29/17 05:20 03/29/17 05:20 Active Medications Amiodarone HCl (Cordarone -) 400 mg PO DAILY [facility] Last Admin: 03/29/17 09:23 Dose: 400 mg Atorvastatin Calcium (Lipitor -) 80 mg NGT HS [facility] Last Admin: 03/28/17 22:27 Dose: 80 mg Chlorhexidine Gluconate (Hibiclens For Decolonization -) 1 applic TP HS [facility] Last Admin: 03/28/17 22:29 Dose: 1 applic Chlorhexidine Gluconate (Peridex -) 15 ml MM BID [facility] Last Admin: 03/29/17 09:23 Dose: 15 ml Heparin Sodium (Porcine) (Heparin -) 1,000 unit IVPUSH PRN PRN PRN Reason: Heparin Last Admin: 03/28/17 10:59 Dose: 1,000 unit Heparin Sodium (Porcine) (Heparin -) 5,000 unit IVPUSH PRN PRN PRN Reason: Heparin Hydrocortisone Sodium Succinate (Solu-Cortef -) 50 mg IVPB Q8H-IV [facility] Last Admin: 03/29/17 09:23 Dose: 50 mg Furosemide 100 mg/ Dextrose 100 mls @ 10 mls/hr IVPB TITR [facility] PRN Reason: 10 MG/HR Last Admin: 03/28/17 13:16 Dose: 15 mls/hr Norepinephrine Bitartrate 8, (000 mcg/ Dextrose) 500 mls @ 18.75 mls/hr IV TITR SARAH; 5 MCG/MIN PRN Reason: Protocol Last Admin: 03/29/17 00:00 Dose: 50 mls/hr Heparin Sodium (Porcine) 25, (000 unit/ Sodium Chloride) 500 mls @ 20 mls/hr IV TITR SARAH; 1,000 UNIT/HR PRN Reason: Protocol Last Admin: 03/28/17 19:00 Dose: 26 mls/hr Dopamine HCl/Dextrose (Dopamine 400 Mg/D5w -) 250 mls @ 27.375 mls/hr IVPB TITR [facility]AH; 5 MCG/KG/MIN PRN Reason: Protocol Last Admin: 03/28/17 12:18 Dose: Not Given Propofol (Diprivan -) 100 mls @ 4.38 mls/hr IVPB TITR SARAH; 5 MCG/KG/MIN PRN Reason: Protocol Last Admin: 03/28/17 13:54 Dose: 7.534 mls/hr Vancomycin HCl (Vancomycin (Pre-Docked)) 250 mls @ 166.667 mls/hr IVPB ONCE ONE Stop: 03/29/17 10:29 Last Admin: 03/29/17 09:24 Dose: 166.667 mls/hr Potassium Chloride (Potassium Chloride 10 Meq Premix Ivpb -) 100 mls @ 100 mls/ hr IVPB Q60M [facility] Stop: 03/29/17 16:59 Insulin Aspart (Novolog Vial Sliding Scale -) 1 vial SQ ACHS [facility] PRN Reason: Protocol Last Admin: 03/29/17 07:29 Dose: 2 units Pantoprazole Sodium (Protonix 40mg Ivpb (Pre-Docked)) 40 mg IVPB DAILY [facility] Last Admin: 03/29/17 09:29 Dose: 40 mg A/P s/p Vfib Cardiac Arrest Acute on Chronic Hypoxic Respiratory Failure Acute on Chronic Diastolic Heart Failure Severe Pulmonary HTN s/p BiV PPM CAD +Troponins Atrial Fibrillation HTN CKD Hyperlipidemia DM COPD Morbid Obesity Obstructive Sleep Apnea - s/p hypothermia protocol - keep K>4, Mg>2 - continue amiodarone - continue anticoagulation - lasix gtt per renal - titrate levophed gtt to maintain MAP >65 - monitor urine output, creatinine - HD per renal - poor visualization of left hemithorax on bedside ultrasound, will need CT chest when more stable - taper FiO2 to keep SpO2 >90%, decreased Fio2 to 40%, PEEP to 5 - daily sedation vacations to assess mental status - spontaneous breathing trials as tolerated - enteral feeds - DVT/GI prophylaxis - continue ICU monitoring - will likely need tracheostomy critical care time spent in reviewing chart, evaluating patient and formulating plan 40 min
--- NOTE | 2017-03-29 10:17 | PN ---
Physical Exam: SUBJECTIVE: Patient seen and examined at bedside.No overnight events. Continues to have diarrhea. OBJECTIVE: Vital Signs Period Temp Pulse Resp BP Sys/Krishnan Pulse Ox Last 24 Hr 97 F-98.8 F 60-74 12-29 85-118/55-72 93-97 GENERAL: intubated and sedated HEAD: Normal with no signs of trauma. EYES: pupils reactive to light ENT: ET tube in place NECK: supple., (+) JVD LUNGS: Diminished breath sounds bilat. , bibasilar rales and scattered rhonchi. HEART: RRR, S1, S2 w/o murmur, rub or gallop. ABDOMEN: Obese, hypoactive BS, edema of abdominal wall. Rectal tube in place and draining. EXTREMITIES: improved 2+ pittiing edema up to abdomen . Chronic changes of lower ext. NEUROLOGICAL: Sedated but opens eyes on command. Moves upper extremities to verbal command. SKIN: Warm, dry, thickened skin on bilat. LE Laboratory Results - last 24 hr 03/28/17 03/28/17 03/28/17 11:16 16:10 16:44 WBC RBC Hgb Hct MCV MCHC RDW Plt Count MPV Neutrophils % Lymphocytes % Monocytes % Band Neutrophils Platelet Estimate Platelet Comment Polychromasia Hypochromic-Microcytic Basophilic Stippling Anisocytosis Macrocytosis PTT (Actin FS) 75.1 H D Sodium Potassium Chloride Carbon Dioxide Anion Gap BUN Creatinine Creat Clearance w eGFR POC Glucometer [phone] Random Glucose Calcium Phosphorus Magnesium Total Bilirubin AST ALT Alkaline Phosphatase Total Protein Albumin Random Vancomycin 03/28/17 03/28/17 03/29/17 22:26 23:00 05:20 WBC RBC Hgb Hct MCV MCHC RDW Plt Count MPV Neutrophils % Lymphocytes % Monocytes % Band Neutrophils Platelet Estimate Platelet Comment Polychromasia Hypochromic-Microcytic Basophilic Stippling Anisocytosis Macrocytosis PTT (Actin FS) 70.3 H Sodium 134 L Potassium 2.9 L* Chloride 94 L Carbon Dioxide 28 Anion Gap 12 BUN 89 H Creatinine 3.3 H Creat Clearance w eGFR 18.22 POC Glucometer [phone] Random Glucose 171 H D Calcium 7.4 L Phosphorus 3.5 D Magnesium 2.6 H Total Bilirubin 0.5 AST 16 ALT 15 Alkaline Phosphatase 64 Total Protein 5.6 L Albumin 2.7 L Random Vancomycin 16.675 03/29/17 05:20 WBC 13.6 H RBC 3.51 L Hgb 9.1 L Hct 27.9 L MCV 79.5 L MCHC 32.5 RDW 18.7 H Plt Count 160 MPV 9.0 Neutrophils % 87.0 H Lymphocytes % 5.0 L D Monocytes % 5.0 Band Neutrophils 3.0 Platelet Estimate Adequate Platelet Comment No clumping noted Polychromasia Few Hypochromic-Microcytic 1+ Basophilic Stippling 1+ Anisocytosis 1+ Macrocytosis 1+ PTT (Actin FS) Sodium Potassium Chloride Carbon Dioxide Anion Gap BUN Creatinine Creat Clearance w eGFR POC Glucometer Random Glucose Calcium Phosphorus Magnesium Total Bilirubin AST ALT Alkaline Phosphatase Total Protein Albumin Random Vancomycin Active Medications Generic Name Dose Route Start Last Admin Trade Name Freq PRN Reason Stop Dose Admin Amiodarone HCl 400 mg 03/26/17 10:00 03/29/17 09:23 Cordarone - PO 400 mg DAILY SARAH Administration Atorvastatin Calcium 80 mg 03/18/17 09:45 03/28/17 22:27 Lipitor - NGT 80 mg HS SARAH Administration Chlorhexidine Gluconate 1 applic 03/17/17 22:00 03/28/17 22:29 Hibiclens For Decolonization - TP 1 applic HS SARAH Administration Chlorhexidine Gluconate 15 ml 03/18/17 22:15 03/29/17 09:23 Peridex - MM 15 ml BID SARAH Administration Heparin Sodium (Porcine) 1,000 unit 03/22/17 08:38 03/28/17 10:59 Heparin - IVPUSH 1,000 unit PRN PRN Administration Heparin Heparin Sodium (Porcine) 5,000 unit 03/22/17 08:38 Heparin - IVPUSH PRN PRN Heparin Hydrocortisone Sodium Succinate 50 mg 03/28/17 10:00 03/29/17 09:23 Solu-Cortef - IVPB 50 mg Q8H-IV SARAH Administration Furosemide 100 mg/ Dextrose 100 mls @ 10 mls/hr 03/21/17 13:45 03/28/17 13:16 IVPB 15 mls/hr TITR SARAH Administration 10 MG/HR Norepinephrine Bitartrate 8, 500 mls @ 18.75 mls/hr 03/22/17 08:45 03/29/17 00: 00 000 mcg/ Dextrose IV 50 mls/hr TITR SARAH Administration Protocol 5 MCG/MIN Heparin Sodium (Porcine) 25, 500 mls @ 20 mls/hr 03/22/17 08:45 03/28/17 19:00 000 unit/ Sodium Chloride IV 26 mls/hr TITR SARAH Administration Protocol 1,000 UNIT/HR Dopamine HCl/Dextrose 250 mls @ 27.375 mls/hr 03/23/17 12:00 03/28/17 12:18 Dopamine 400 Mg/D5w - IVPB Not Given TITR SARAH Protocol 5 MCG/KG/MIN Propofol 100 mls @ 4.38 mls/hr 03/23/17 12:00 03/28/17 13:54 Diprivan - IVPB 7.534 mls/hr TITR SARAH Administration Protocol 5 MCG/KG/MIN Vancomycin HCl 250 mls @ 166.667 mls/hr 03/29/17 09:00 03/29/17 09:24 Vancomycin (Pre-Docked) IVPB 03/29/17 10:29 166.667 mls/hr ONCE ONE Administration Potassium Chloride 100 mls @ 100 mls/hr 03/29/17 14:00 Potassium Chloride 10 Meq Premix Ivpb - IVPB 03/29/17 16:59 Q60M SARAH Insulin Aspart 1 vial 03/24/17 07:00 03/29/17 07:29 Novolog Vial Sliding Scale - SQ 2 units ACHS SARAH Administration Protocol Pantoprazole Sodium 40 mg 03/18/17 10:00 03/29/17 09:29 Protonix 40mg Ivpb (Pre-Docked) IVPB 40 mg DAILY SARAH Administration ASSESSMENT/PLAN: 76 y/o M with signifcant PMHx of CHF, HTN, Afib, and pulmonary HTN admitted from long term s/p cardiac arrest 2/2 vfib admitted to ICU Problem List - Problems (1) Cardiac arrest Assessment/Plan: * Remains intubated and sedated. * Maintaining MAP > 65 * Currently:Norepinephrine 5mcg/hr * Now Amiodarone 400mg PO daily * Continue ICU monitoring. (2) Positive culture findings in sputum Assessment/Plan: * sputum (+) for MRSA * Continue Vancomycin daily with repeat trough * will repeat AM labs. (3) Acute on chronic diastolic CHF (congestive heart failure) Assessment/Plan: * Lasix drip @ 10mg/hr * monitor I/O's * daily weights. (4) CKD (chronic kidney disease) Assessment/Plan: * worsening Cr however will need to continue Lasix. * Stage 4 GFR 23 * Had 2nd dialysis with total of 3.5L UF * no plans for dialysis or UF today * will plan additional HD with UF tomorrow * continue Lasix gtt (5) A-fib Assessment/Plan: * Currently paced * followed by EP Dr. Bello will continue Amiodarone. * will hold off on AV blockage due to hypotension * Digoxin held due to renal function. (6) Supratherapeutic INR Assessment/Plan: * resolved * Heparin drip for AC. (7) DVT prophylaxis Assessment/Plan: * Heparin GGT * SCD's bilat. Visit type - Emergency Visit Emergency Visit: Yes ED Registration Date: 03/17/17 Care time: The patient presented to the Emergency Department on the above date and was hospitalized for further evaluation of their emergent condition. - New Patient This patient is new to me today: No - Critical Care Critical Care patient: Yes Total Critical Care Time (in minutes): 40 Critical Care Statement: The care of this patient involved high complexity decision making to prevent further life threatening deterioration of the patient 's condition and/or to evalute & treat vital organ system(s) failure or risk of failure.
[2017-03-29] MEDS: HEPARIN - 25,000 UNIT in SODIUM CHLORIDE 495 ML IV SCH (12:04)
[2017-03-29] MEDS: DOPAMINE 400 MG/D5W - 250 ML IVPB SCH (12:06)
[2017-03-29] MEDS: FUROSEMIDE INJECTION 100 MG in DEXTROSE 5%-WATER - 90 ML IVPB SCH (13:13)
[2017-03-29] MEDS ORDERED: NOREPINEPHRINE BITARTRATE 4 MG/4 ML ML IV ONE ×2 (13:38→20:58)
[2017-03-29] MEDS: NOREPINEPHRINE BITARTRATE 8,000 MCG in DEXTROSE 5%-WATER - 492 ML IV SCH ×2 (14:23)
[2017-03-29] MEDS: BANATROL PLUS POWDER PACKET PO SCH ×2 (14:24→21:48)
[2017-03-29 14:48] LABS: CALCIUM 7.6 mg/dL (8.5-10.1); CREATININE 3.3 mg/dL (0.7-1.3)
[2017-03-29] MEDS: KCL 10 MEQ IVPB 100 ML IVPB SCH ×3 (15:32→16:50)
[2017-03-29] MEDS: ATORVASTATIN CA 80 MG TABLET (FP) NGT SCH (21:48)
[2017-03-29] MEDS: CHLORHEXIDINE GLUCONATE 4% CLEANSER FOR DECOLONIZATION TP SCH (21:48)
[2017-03-30] MEDS: HYDROCORTISONE SOD SUCCINATE 100 MG/2 ML VIAL IVPB SCH ×3 (01:26→18:06)
[2017-03-30] MEDS ORDERED: FUROSEMIDE 100 MG/10 ML INJECTABLE VIAL ONE (03:00)
[2017-03-30 06:21] LABS: MCH 25.6 pg (25.7-33.7); PLATELET COUNT 203 K/MM3 (134-434); RDW 18.5 % (11.9-15.9); WHITE BLOOD COUNT 15.7 K/mm3 (4.0-10.0)
[2017-03-30 06:35] LABS: MAGNESIUM 2.7 mg/dL (1.8-2.4); PHOSPHOROUS 3.7 mg/dL (2.5-4.9)
--- NOTE | 2017-03-30 07:15 | PN ---
Progress Note, Physician Chief Complaint: ID Remains intubated Got dose of Vancomycin ( sputum c/s MRSA) - Current Medication List Current Medications: Active Medications Amiodarone HCl (Cordarone -) 400 mg PO DAILY SARAH Last Admin: 03/29/17 09:23 Dose: 400 mg Atorvastatin Calcium (Lipitor -) 80 mg NGT HS SARAH Last Admin: 03/29/17 21:48 Dose: 80 mg Chlorhexidine Gluconate (Hibiclens For Decolonization -) 1 applic TP HS SARAH Last Admin: 03/29/17 21:48 Dose: 1 applic Chlorhexidine Gluconate (Peridex -) 15 ml MM BID SARAH Last Admin: 03/29/17 21:47 Dose: 15 ml Heparin Sodium (Porcine) (Heparin -) 1,000 unit IVPUSH PRN PRN PRN Reason: Heparin Last Admin: 03/28/17 10:59 Dose: 1,000 unit Heparin Sodium (Porcine) (Heparin -) 5,000 unit IVPUSH PRN PRN PRN Reason: Heparin Hydrocortisone Sodium Succinate (Solu-Cortef -) 50 mg IVPB Q8H-IV SARAH Last Admin: 03/30/17 01:26 Dose: 50 mg Furosemide 100 mg/ Dextrose 100 mls @ 10 mls/hr IVPB TITR SARAH PRN Reason: 10 MG/HR Last Admin: 03/29/17 13:13 Dose: 15 mls/hr Norepinephrine Bitartrate 8, (000 mcg/ Dextrose) 500 mls @ 18.75 mls/hr IV TITR SARAH; 5 MCG/MIN PRN Reason: Protocol Last Admin: 03/29/17 14:23 Dose: 48.75 mls/hr Heparin Sodium (Porcine) 25, (000 unit/ Sodium Chloride) 500 mls @ 20 mls/hr IV TITR SARAH; 1,000 UNIT/HR PRN Reason: Protocol Last Admin: 03/29/17 12:04 Dose: 26 mls/hr Dopamine HCl/Dextrose (Dopamine 400 Mg/D5w -) 250 mls @ 27.375 mls/hr IVPB TITR SARAH; 5 MCG/KG/MIN PRN Reason: Protocol Last Admin: 03/29/17 12:06 Dose: Not Given Propofol (Diprivan -) 100 mls @ 4.38 mls/hr IVPB TITR SARAH; 5 MCG/KG/MIN PRN Reason: Protocol Last Admin: 03/29/17 14:41 Dose: 17.52 mls/hr Insulin Aspart (Novolog Vial Sliding Scale -) 1 vial SQ ACHS SARAH PRN Reason: Protocol Last Admin: 03/29/17 21:49 Dose: 4 units Pantoprazole Sodium (Protonix 40mg Ivpb (Pre-Docked)) 40 mg IVPB DAILY [facility] Last Admin: 03/29/17 09:29 Dose: 40 mg - Objective Vital Signs: Vital Signs Temperature 97 F L 03/29/17 22:00 Pulse Rate 70 03/30/17 01:00 Respiratory Rate 22 03/30/17 06:37 Blood Pressure 101/55 03/30/17 01:00 O2 Sat by Pulse Oximetry (%) 100 03/29/17 18:08 Constitutional: Yes: Obese Cardiovascular: Yes: Pulse Irregular, S1, S2 Respiratory: Yes: Diminished Gastrointestinal: Yes: Soft. No: Tenderness Edema: Yes Labs: CBC, BMP 03/30/17 05:45 03/29/17 14:05 INR, PTT INR 1.53 (0.82-1.09) H 03/23/17 05:35 Assessment/Plan Microbiology 03/23/17 21:00 Blood - Peripheral Venous Blood Culture - Final NO GROWTH AFTER 5 DAYS INCUBATION 03/23/17 20:40 Blood - Peripheral Venous Blood Culture - Final NO GROWTH AFTER 5 DAYS INCUBATION 03/22/17 11:15 Sputum - Endotrachea Suction/Ventilator Gram Stain - Final 03/22/17 11:15 Sputum - Endotrachea Suction/Ventilator Sputum Culture - Final S Aureus 03/17/17 14:59 Blood - Peripheral Venous Blood Culture - Final NO GROWTH AFTER 5 DAYS INCUBATION 03/17/17 14:55 Blood - Peripheral Venous Blood Culture - Final NO GROWTH AFTER 5 DAYS INCUBATION Laboratory Tests 03/29/17 03/30/17 05:20 05:45 WBC 13.6 H 15.7 H Hgb 9.0 L Hct 28.0 L Plt Count 203 D Assessment Post cardiac arrest Respiratory failure Acute kidney failure COPD Opacification of the hemithorax Slight WBC elevation but on steroids Colonization of the respiratory tract MRSA Got vanco yesterday Plan Would observe for now Isolate contact Dialysis in progress Alba BENITEZ
[2017-03-30] MEDS ORDERED: PT OWN MED DRAWER 7, Y5N ONE ×3 (07:25→22:15)
[2017-03-30] MEDS: BANATROL PLUS POWDER PACKET PO SCH ×3 (07:27→22:26)
[2017-03-30] MEDS: INSULIN SLIDING SCALE (NOVOLOG) 1 VIAL SQ SCH ×4 (07:27→23:30)
[2017-03-30] MEDS ORDERED: NOREPINEPHRINE BITARTRATE 8,000 MCG in DEXTROSE 5%-WATER - 492 ML IV SCH (07:43)
[2017-03-30 09:30] LABS: ALBUMIN 2.7 g/dl (3.4-5.0); BILIRUBIN,TOTAL 0.5 mg/dL (0.2-1.0); CALCIUM 7.6 mg/dL (8.5-10.1); CREATININE 3.5 mg/dL (0.7-1.3); TOT PROT 5.5 g/dl (6.4-8.2)
[2017-03-30] MEDS: HEPARIN - 25,000 UNIT in SODIUM CHLORIDE 495 ML IV SCH (09:33)
[2017-03-30] MEDS: AMIODARONE HCL 200 MG TABLET (FP) PO SCH (10:03)
[2017-03-30] MEDS: PANTOPRAZOLE SODIUM 40 MG/100 ML PRE-DOCKED IVPB SCH (10:03)
[2017-03-30] MEDS: CHLORHEXIDINE GLUCONATE 0.12% 15ML CUP MM SCH ×2 (10:04→22:26)
--- NOTE | 2017-03-30 10:42 | PN ---
Progress Note (short form) - Note Progress Note: Renal Follow up for SUJATA/Fluid overload Pt seen and examined in the ICU sedated on Vent, FiO2 40% BP stable on Levophed remains swollen no overnight events for HD and UF today Vital Signs Temperature 97.4 F L 03/30/17 06:00 Pulse Rate 67 03/30/17 09:30 Respiratory Rate 28 H 03/30/17 09:30 Blood Pressure 80/48 03/30/17 08:00 O2 Sat by Pulse Oximetry (%) 100 03/30/17 10:32 Intake & Output 03/27/17 03/28/17 03/29/17 03/30/17 23:59 23:59 23:59 23:59 Intake Total 3849.8 3826.0 4601 2166 Output Total 1500 1800 650 450 Balance 2349.8 2026.0 3951 1716 Weight 336 lb 6.806 oz 339 lb 1 oz 330 lb 11.094 oz 337 lb 8.443 oz Gen: on Vent, sedated CVS: RRR, No M/R Lungs: DEC BS throughout the lung ortiz, no rales Abd: soft, Obese, ND Ext: 2+ edema in LE, no cyanosis, warm ext : Ridley in place CBC, BMP 03/30/17 05:45 03/30/17 05:45 Notes 03/27/17 16:04 Nurse by Radha Davis received pt in icu,intubated,unresponsive,bp low side,first dialysis,right shiley cath,no pneumothorax noted,tx initiated to lose 3.0kgs as tolerated,4hrs tx-2hrshd,2hrs uf only,bfr 200cc/min Laboratory Tests 03/30/17 03/30/17 05:45 05:45 MCV 80.0 Calcium 7.6 L Phosphorus 3.7 Magnesium 2.7 H Albumin 2.7 L Current Medications Amiodarone HCl (Cordarone -) 400 mg PO DAILY [facility] Last Admin: 03/30/17 10:03 Dose: 400 mg Atorvastatin Calcium (Lipitor -) 80 mg NGT HS [facility] Last Admin: 03/29/17 21:48 Dose: 80 mg Chlorhexidine Gluconate (Hibiclens For Decolonization -) 1 applic TP HS [facility] Last Admin: 03/29/17 21:48 Dose: 1 applic Chlorhexidine Gluconate (Peridex -) 15 ml MM BID SARAH Last Admin: 03/30/17 10:04 Dose: 15 ml Furosemide (Lasix Injection -) 80 mg IVPUSH BID@0600,1400 SARAH Heparin Sodium (Porcine) (Heparin -) 1,000 unit IVPUSH PRN PRN PRN Reason: Heparin Last Admin: 03/28/17 10:59 Dose: 1,000 unit Heparin Sodium (Porcine) (Heparin -) 5,000 unit IVPUSH PRN PRN PRN Reason: Heparin Hydrocortisone Sodium Succinate (Solu-Cortef -) 50 mg IVPB Q8H-IV SARHA Last Admin: 03/30/17 10:04 Dose: 50 mg Heparin Sodium (Porcine) 25, (000 unit/ Sodium Chloride) 500 mls @ 20 mls/hr IV TITR SARAH; 1,000 UNIT/HR PRN Reason: Protocol Last Admin: 03/30/17 09:33 Dose: 26 mls/hr Dopamine HCl/Dextrose (Dopamine 400 Mg/D5w -) 250 mls @ 27.375 mls/hr IVPB TITR SARAH; 5 MCG/KG/MIN PRN Reason: Protocol Last Admin: 03/29/17 12:06 Dose: Not Given Propofol (Diprivan -) 100 mls @ 4.38 mls/hr IVPB TITR SARAH; 5 MCG/KG/MIN PRN Reason: Protocol Last Admin: 03/29/17 14:41 Dose: 17.52 mls/hr Norepinephrine Bitartrate 8, (000 mcg/ Dextrose) 258 mls @ 15.48 mls/hr IV TITR SARAH; 8 MCG/MIN PRN Reason: Protocol Insulin Aspart (Novolog Vial Sliding Scale -) 1 vial SQ ACHS SARAH PRN Reason: Protocol Last Admin: 03/30/17 07:27 Dose: 4 units Pantoprazole Sodium (Protonix 40mg Ivpb (Pre-Docked)) 40 mg IVPB DAILY SARAH Last Admin: 03/30/17 10:03 Dose: 40 mg A/P 76 year old Gentleman with PMhx of CKD, CHF, Hypertension, Afib, Obesity, Prostate Ca who presented s/p cardiac arrest with SUJATA and Volume overload #Non-Oliguric Acute on Chronic renal insufficiency with volume overload for 3rd dialysis today (HD x 3 hours, UF x 1 hours) will attempt to pull out around 3-2.5 KG d/c lasix gtt, start Lasix 80mg IV BID Dose all meds for Cr Cl less then 10 Will plan for continued UF this week to achieve evolemia #Hypokalemia will use 3k bath with HD repeat BMP after dialysis and supplement as needed #Shock/Resp Failure continue pressers, hydrocortisone keep MAP > 65 titrate pressers as per ICU for trach as per ICU Thank you Garry Drew DO
[2017-03-30] MEDS: PROPOFOL 100 ML IVPB SCH ×2 (11:39→15:43)
--- NOTE | 2017-03-30 11:52 | PN ---
Teaching Attending Note Name of Resident: Fani Allison ATTENDING PHYSICIAN STATEMENT I saw and evaluated the patient. I reviewed the resident's note and discussed the case with the resident. I agree with the resident's findings and plan as documented. SUBJECTIVE: Pt seen and examined in the ICU. Remains intubated, sedated. On levophed and lasix gtts. No fevers recorded. OBJECTIVE: Last Vital Signs Temp Pulse Resp BP Pulse Ox 98.7 F 63 16 105/62 100 03/30/17 11:15 03/30/17 11:20 03/30/17 11:20 03/30/17 11:20 03/30/17 10:32 Intake & Output 03/27/17 03/28/17 03/29/17 03/30/17 23:59 23:59 23:59 23:59 Intake Total 3849.8 3826.0 4601 2166 Output Total 1500 1800 650 450 Balance 2349.8 2026.0 3951 1716 Weight 336 lb 6.806 oz 339 lb 1 oz 330 lb 11.094 oz 337 lb 8.443 oz Gen: intubated, sedated Heart: RRR Lung: scattered rhonchi Abd: soft, nontender Ext: less edema CBC, BMP 03/30/17 05:45 03/30/17 05:45 Active Medications Amiodarone HCl (Cordarone -) 400 mg PO DAILY [facility] Last Admin: 03/30/17 10:03 Dose: 400 mg Atorvastatin Calcium (Lipitor -) 80 mg NGT HS [facility] Last Admin: 03/29/17 21:48 Dose: 80 mg Chlorhexidine Gluconate (Hibiclens For Decolonization -) 1 applic TP HS [facility] Last Admin: 03/29/17 21:48 Dose: 1 applic Chlorhexidine Gluconate (Peridex -) 15 ml MM BID [facility] Last Admin: 03/30/17 10:04 Dose: 15 ml Furosemide (Lasix Injection -) 80 mg IVPUSH BID@0600,1400 [facility] Heparin Sodium (Porcine) (Heparin -) 1,000 unit IVPUSH PRN PRN PRN Reason: Heparin Last Admin: 03/28/17 10:59 Dose: 1,000 unit Heparin Sodium (Porcine) (Heparin -) 5,000 unit IVPUSH PRN PRN PRN Reason: Heparin Hydrocortisone Sodium Succinate (Solu-Cortef -) 50 mg IVPB Q8H-IV SARAH Last Admin: 03/30/17 10:04 Dose: 50 mg Heparin Sodium (Porcine) 25, (000 unit/ Sodium Chloride) 500 mls @ 20 mls/hr IV TITR SARAH; 1,000 UNIT/HR PRN Reason: Protocol Last Admin: 03/30/17 09:33 Dose: 26 mls/hr Dopamine HCl/Dextrose (Dopamine 400 Mg/D5w -) 250 mls @ 27.375 mls/hr IVPB TITR SARAH; 5 MCG/KG/MIN PRN Reason: Protocol Last Admin: 03/29/17 12:06 Dose: Not Given Propofol (Diprivan -) 100 mls @ 4.38 mls/hr IVPB TITR SARAH; 5 MCG/KG/MIN PRN Reason: Protocol Last Admin: 03/30/17 11:39 Dose: 17.52 mls/hr Norepinephrine Bitartrate 8, (000 mcg/ Dextrose) 258 mls @ 15.48 mls/hr IV TITR SARAH; 8 MCG/MIN PRN Reason: Protocol Insulin Aspart (Novolog Vial Sliding Scale -) 1 vial SQ ACHS SARHA PRN Reason: Protocol Last Admin: 03/30/17 11:44 Dose: 4 units Pantoprazole Sodium (Protonix 40mg Ivpb (Pre-Docked)) 40 mg IVPB DAILY SARAH Last Admin: 03/30/17 10:03 Dose: 40 mg ASSESSMENT AND PLAN: s/p Vfib Cardiac Arrest Acute on Chronic Hypoxic Respiratory Failure Acute on Chronic Diastolic Heart Failure Severe Pulmonary HTN s/p BiV PPM CAD +Troponins Atrial Fibrillation HTN CKD Hyperlipidemia DM COPD Morbid Obesity Obstructive Sleep Apnea - s/p hypothermia protocol - keep K>4, Mg>2 - continue amiodarone - continue anticoagulation - lasix changed to boluses - titrate levophed gtt to maintain MAP >65 - monitor urine output, creatinine - HD per renal - poor visualization of left hemithorax on bedside ultrasound, will need CT chest when more stable - taper FiO2 to keep SpO2 >90% - daily sedation vacations to assess mental status - spontaneous breathing trials as tolerated - enteral feeds - DVT/GI prophylaxis - continue ICU monitoring - will likely need tracheostomy critical care time spent in reviewing chart, evaluating patient and formulating plan 40 min
[2017-03-30] MEDS: WATER IV SCH ×2 (12:33→20:00)
[2017-03-30] MEDS: DEXTROSE 5% IV SCH ×2 (12:33→20:00)
[2017-03-30] MEDS: NOREPINEPHRINE BITARTRATE IV SCH ×2 (12:33→20:00)
--- NOTE | 2017-03-30 12:58 | PN ---
Progress Note, Physician History of Present Illness: The patient is a 76 year old black male, with a significant past medical history of diastolic CHF (severely reduced RVEF of uncertain etiology; severely dilated RV on 02/2017 ECHO, per pt's call or contact centre manager at [place]), (non- obstructive CAD by 2008 coronary angiogram), [employer] "biventricular pacemaker , COPD, HTN, HLD, Atrial Fibrillation, renal insufficiency, Morbid obesity, Prostate CA, Sleep apnea on O2, generalzied weakness (wheelchair-bound), Glaucoma BIBA from [facility] s/p Cardiac arrest. As per EMS, the patient was initially seated in PT doing leg exercises when he became unresponsive. Patient was brought back into his room in the [place] and chest compressions were initiated by nursing staff. Down time was between 4-5 minutes. patient was shocked once and ROSC was noted. As per EMS, patient was given 150 mg of Amiodarone in the field and was brought into the ED for further evaluation. Upon arrival to the ED, patients (health care proxy) gave consent to intubate over the telephone. 2:48 PM- 20 mg of Etomidate given through IV 2:49 PM- 150 mg of Succinylcholine given through IV 2:50 PM- Patient intubated with 7.5 ET tube, positioned 24 cm at the lip Pt's says pt is followed closely by [place] [facility] groups. I spoke by telephone with pt's call or contact centre manager, who provided much of the above history. - Current Medication List Current Medications: Active Medications Amiodarone HCl (Cordarone -) 400 mg PO DAILY [facility] Last Admin: 03/30/17 10:03 Dose: 400 mg Atorvastatin Calcium (Lipitor -) 80 mg NGT HS [facility] Last Admin: 03/29/17 21:48 Dose: 80 mg Chlorhexidine Gluconate (Hibiclens For Decolonization -) 1 applic TP HS [facility] Last Admin: 03/29/17 21:48 Dose: 1 applic Chlorhexidine Gluconate (Peridex -) 15 ml MM BID [facility] Last Admin: 03/30/17 10:04 Dose: 15 ml Furosemide (Lasix Injection -) 80 mg IVPUSH BID@0600,1400 [facility] Heparin Sodium (Porcine) (Heparin -) 1,000 unit IVPUSH PRN PRN PRN Reason: Heparin Last Admin: 03/28/17 10:59 Dose: 1,000 unit Heparin Sodium (Porcine) (Heparin -) 5,000 unit IVPUSH PRN PRN PRN Reason: Heparin Hydrocortisone Sodium Succinate (Solu-Cortef -) 50 mg IVPB Q8H-IV SARAH Last Admin: 03/30/17 10:04 Dose: 50 mg Heparin Sodium (Porcine) 25, (000 unit/ Sodium Chloride) 500 mls @ 20 mls/hr IV TITR SARAH; 1,000 UNIT/HR PRN Reason: Protocol Last Admin: 03/30/17 09:33 Dose: 26 mls/hr Dopamine HCl/Dextrose (Dopamine 400 Mg/D5w -) 250 mls @ 27.375 mls/hr IVPB TITR SARAH; 5 MCG/KG/MIN PRN Reason: Protocol Last Admin: 03/29/17 12:06 Dose: Not Given Propofol (Diprivan -) 100 mls @ 4.38 mls/hr IVPB TITR SARAH; 5 MCG/KG/MIN PRN Reason: Protocol Last Admin: 03/30/17 11:39 Dose: 17.52 mls/hr Norepinephrine Bitartrate 8, (000 mcg/ Dextrose) 258 mls @ 15.48 mls/hr IV TITR SARAH; 8 MCG/MIN PRN Reason: Protocol Last Admin: 03/30/17 12:33 Dose: 23.22 mls/hr Insulin Aspart (Novolog Vial Sliding Scale -) 1 vial SQ ACHS SARAH PRN Reason: Protocol Last Admin: 03/30/17 11:44 Dose: 4 units Pantoprazole Sodium (Protonix 40mg Ivpb (Pre-Docked)) 40 mg IVPB DAILY [facility]AH Last Admin: 03/30/17 10:03 Dose: 40 mg - Objective Vital Signs: Vital Signs Temperature 98.7 F 03/30/17 11:15 Pulse Rate 68 03/30/17 12:50 Respiratory Rate 16 03/30/17 12:50 Blood Pressure 104/59 03/30/17 12:50 O2 Sat by Pulse Oximetry (%) 100 03/30/17 10:32 Eyes: Yes: WNL, Conjunctiva Clear, EOM Intact HENT: Yes: WNL, Atraumatic, Normocephalic Neck: Yes: WNL, Supple, Trachea Midline Cardiovascular: Yes: WNL, Regular Rate and Rhythm Respiratory: Yes: Intubated, Mechanically Ventilated Gastrointestinal: Yes: WNL, Normal Bowel Sounds Genitourinary: Yes: WNL Musculoskeletal: Yes: WNL Extremities: Yes: WNL Edema: Yes Integumentary: Yes: WNL Neurological: Yes: WNL, Alert, Oriented ...Motor Strength: WNL Psychiatric: Yes: WNL Labs: CBC, BMP 03/30/17 05:45 03/30/17 05:45 INR, PTT INR 1.53 (0.82-1.09) H 03/23/17 05:35 Assessment/Plan (1) Cardiac arrest Assessment/Plan: Now on PO amiodarone. On dopamine; norepinephrine F/u Is and Os, respiratory response to IV furosemide. Maintain K 4-4.5, Mg 2-2.3. awake intubated today. AICD placement when stable. (2) Acute on chronic diastolic CHF (congestive heart failure) Code(s): I50.33 - ACUTE ON CHRONIC DIASTOLIC (CONGESTIVE) HEART FAILURE (3) Hyperlipidemia Code(s): E78.5 - HYPERLIPIDEMIA, UNSPECIFIED (4) Sleep apnea Code(s): G47.30 - SLEEP APNEA, UNSPECIFIED (5) HTN (hypertension) Code(s): I10 - ESSENTIAL (PRIMARY) HYPERTENSION (6) 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 hypertension Code(s): I27.2 - OTHER SECONDARY PULMONARY HYPERTENSION (7) Hyperkalemia Code(s): E87.5 - HYPERKALEMIA (8) Anemia Code(s): D64.9 - ANEMIA, UNSPECIFIED (9) Acute on chronic renal failure Code(s): N17.9 - ACUTE KIDNEY FAILURE, UNSPECIFIED N18.9 - CHRONIC KIDNEY DISEASE, UNSPECIFIED Assessment/Plan CC time spent: 35 minutes
--- NOTE | 2017-03-30 15:19 | PN ---
Physical Exam: SUBJECTIVE: Patient seen and examined at bedside.No overnight events. Remains intubated and sedated. OBJECTIVE: Vital Signs Period Temp Pulse Resp BP Sys/Krishnan Pulse Ox Last 24 Hr 96.4 F-98.7 F 60-76 16-30 80-125/46-74 93-100 GENERAL: intubated and sedated HEAD: Normal with no signs of trauma. EYES: pupils reactive to light ENT: ET tube in place NECK: supple., (+) JVD LUNGS: Diminished breath sounds bilat. , bibasilar rales and scattered rhonchi. HEART: RRR, S1, S2 w/o murmur, rub or gallop. ABDOMEN: Obese, hypoactive BS, edema of abdominal wall. Rectal tube in place and draining. EXTREMITIES: improved 2+ pittiing edema up to abdomen . Chronic changes of lower ext. NEUROLOGICAL: Sedated but opens eyes on command. Moves upper extremities to verbal command. SKIN: Warm, dry, thickened skin on bilat. LE Laboratory Results - last 24 hr 03/29/17 03/29/17 03/30/17 16:44 21:13 05:45 WBC RBC Hgb Hct MCV MCHC RDW Plt Count MPV PTT (Actin FS) Sodium Potassium Chloride Carbon Dioxide Anion Gap BUN Creatinine Creat Clearance w eGFR POC Glucometer [phone] Random Glucose Calcium Phosphorus Magnesium Total Bilirubin AST ALT Alkaline Phosphatase Total Protein Albumin Random Vancomycin 23.186 03/30/17 03/30/17 03/30/17 05:45 05:45 05:45 WBC 15.7 H RBC 3.50 L Hgb 9.0 L Hct 28.0 L MCV 80.0 MCHC 32.0 RDW 18.5 H Plt Count 203 D MPV 9.0 PTT (Actin FS) 62.1 H Sodium 132 L Potassium 3.3 L Chloride 93 L Carbon Dioxide 26 Anion Gap 13 BUN 96 H Creatinine 3.5 H Creat Clearance w eGFR 17.02 POC Glucometer Random Glucose 168 H Calcium 7.6 L Phosphorus 3.7 Magnesium 2.7 H Total Bilirubin 0.5 AST 17 ALT 17 Alkaline Phosphatase 62 Total Protein 5.5 L Albumin 2.7 L Random Vancomycin 03/30/17 03/30/17 03/30/17 05:45 07:16 11:26 WBC RBC Hgb Hct MCV MCHC RDW Plt Count MPV PTT (Actin FS) Sodium Cancelled Potassium Cancelled Chloride Cancelled Carbon Dioxide Cancelled Anion Gap Cancelled BUN Cancelled Creatinine Cancelled Creat Clearance w eGFR Cancelled POC Glucometer [phone] Random Glucose Cancelled Calcium Cancelled Phosphorus Magnesium Total Bilirubin Cancelled AST Cancelled ALT Cancelled Alkaline Phosphatase Cancelled Total Protein Cancelled Albumin Cancelled Random Vancomycin Active Medications Generic Name Dose Route Start Last Admin Trade Name Freq PRN Reason Stop Dose Admin Amiodarone HCl 400 mg 03/26/17 10:00 03/30/17 10:03 Cordarone - PO 400 mg DAILY SARAH Administration Atorvastatin Calcium 80 mg 03/18/17 09:45 03/29/17 21:48 Lipitor - NGT 80 mg HS SARAH Administration Chlorhexidine Gluconate 1 applic 03/17/17 22:00 03/29/17 21:48 Hibiclens For Decolonization - TP 1 applic HS SARAH Administration Chlorhexidine Gluconate 15 ml 03/18/17 22:15 03/30/17 10:04 Peridex - MM 15 ml BID SARAH Administration Furosemide 80 mg 03/30/17 14:00 Lasix Injection - IVPUSH BID@0600,1400 SARAH Heparin Sodium (Porcine) 1,000 unit 03/22/17 08:38 03/28/17 10:59 Heparin - IVPUSH 1,000 unit PRN PRN Administration Heparin Heparin Sodium (Porcine) 5,000 unit 03/22/17 08:38 Heparin - IVPUSH PRN PRN Heparin Hydrocortisone Sodium Succinate 50 mg 03/28/17 10:00 03/30/17 10:04 Solu-Cortef - IVPB 50 mg Q8H-IV SARAH Administration Heparin Sodium (Porcine) 25, 500 mls @ 20 mls/hr 03/22/17 08:45 03/30/17 09:33 000 unit/ Sodium Chloride IV 26 mls/hr TITR SARAH Administration Protocol 1,000 UNIT/HR Dopamine HCl/Dextrose 250 mls @ 27.375 mls/hr 03/23/17 12:00 03/29/17 12:06 Dopamine 400 Mg/D5w - IVPB Not Given TITR SARAH Protocol 5 MCG/KG/MIN Propofol 100 mls @ 4.38 mls/hr 03/23/17 12:00 03/30/17 11:39 Diprivan - IVPB 17.52 mls/hr TITR SARAH Administration Protocol 5 MCG/KG/MIN Norepinephrine Bitartrate 8, 258 mls @ 15.48 mls/hr 03/30/17 08:15 03/30/17 12: 33 000 mcg/ Dextrose IV 23.22 mls/hr TITR SARAH Administration Protocol 8 MCG/MIN Insulin Aspart 1 vial 03/24/17 07:00 03/30/17 11:44 Novolog Vial Sliding Scale - SQ 4 units ACHS SARAH Administration Protocol Pantoprazole Sodium 40 mg 03/18/17 10:00 03/30/17 10:03 Protonix 40mg Ivpb (Pre-Docked) IVPB 40 mg DAILY SARAH Administration ASSESSMENT/PLAN: 76 y/o M with signifcant PMHx of CHF, HTN, Afib, and pulmonary HTN admitted from half-way s/p cardiac arrest 2/2 vfib admitted to ICU Problem List - Problems (1) Cardiac arrest Assessment/Plan: * Remains intubated and sedated. * Will receive 3rd HD today. * is acceptable to Trach. * Maintaining MAP > 65 * Currently:Norepinephrine 12mcg/hr * Now Amiodarone 400mg PO daily * Continue ICU monitoring. (2) Positive culture findings in sputum Assessment/Plan: * sputum (+) for MRSA * Continue Vancomycin daily with repeat trough * will repeat AM labs. (3) Acute on chronic diastolic CHF (congestive heart failure) Assessment/Plan: * Lasix 80mg BID IVPUSH * monitor I/O's * daily weights. (4) CKD (chronic kidney disease) Assessment/Plan: * Had 3rd dialysis; 4kgs removed. * Stage 4 GFR 23 * will plan additional UF tomorrow. * continue Lasix 80mg IV BID (5) A-fib Assessment/Plan: * Currently paced * followed by EP Dr. Bello will continue Amiodarone. * will hold off on AV blockage due to hypotension * Digoxin held due to renal function. (6) DVT prophylaxis Assessment/Plan: * Heparin GGT * SCD's bilat. Visit type - Emergency Visit Emergency Visit: Yes ED Registration Date: 03/17/17 Care time: The patient presented to the Emergency Department on the above date and was hospitalized for further evaluation of their emergent condition. - New Patient This patient is new to me today: No - Critical Care Critical Care patient: Yes Total Critical Care Time (in minutes): 33 Critical Care Statement: The care of this patient involved high complexity decision making to prevent further life threatening deterioration of the patient 's condition and/or to evalute & treat vital organ system(s) failure or risk of failure.
[2017-03-30] MEDS: FUROSEMIDE 40 MG/4 ML INJECTABLE VIAL IVPUSH SCH (15:31)
[2017-03-30] MEDS: DOPAMINE 400 MG/D5W - 250 ML IVPB SCH (18:01)
--- NOTE | 2017-03-30 18:11 | PN ---
Physical Exam: SUBJECTIVE: Patient seen and examined. He is intubated and sedated. No overnight events. OBJECTIVE: Vital Signs Period Temp Pulse Resp BP Sys/Krishnan Pulse Ox Last 24 Hr 96.4 F-98.7 F 60-76 16-30 80-125/46-74 93-100 GENERAL: The patient is sedated, on mechanical ventilation. HEAD: Normal with no signs of trauma. EYES: sclera anicteric, conjunctiva clear. ENT: moist mucous membranes. NECK: Trachea midline, full range of motion, supple. LUNGS: Breath sounds equal, coarse breath sounds bilaterally, crackles B/L, no accessory muscle use. HEART: Regular rate and rhythm, S1, S2 without murmur, rub or gallop. ABDOMEN: Obese, soft, nontender, distended, normoactive bowel sounds, no guarding, no rebound, no masses, edema present. EXTREMITIES: 2+ pulses, warm, 2+ edema in LE and abdomen. NEUROLOGICAL: No facial asymmetry, following commands, motor 1/5 in all extremities, gait not observed, sedated. PSYCH: Sedated. Ridley cath, draining. Rectal tube. Dialysis cath inserted 03/27/17. Central line inserted 03/21/17. Laboratory Results - last 24 hr 03/29/17 03/30/17 03/30/17 21:13 05:45 05:45 WBC RBC Hgb Hct MCV MCHC RDW Plt Count MPV PTT (Actin FS) 62.1 H Sodium Potassium Chloride Carbon Dioxide Anion Gap BUN Creatinine Creat Clearance w eGFR POC Glucometer [phone] Random Glucose Calcium Phosphorus Magnesium Total Bilirubin AST ALT Alkaline Phosphatase Total Protein Albumin Random Vancomycin 23.186 03/30/17 03/30/17 03/30/17 05:45 05:45 05:45 WBC 15.7 H RBC 3.50 L Hgb 9.0 L Hct 28.0 L MCV 80.0 MCHC 32.0 RDW 18.5 H Plt Count 203 D MPV 9.0 PTT (Actin FS) Sodium 132 L Cancelled Potassium 3.3 L Cancelled Chloride 93 L Cancelled Carbon Dioxide 26 Cancelled Anion Gap 13 Cancelled BUN 96 H Cancelled Creatinine 3.5 H Cancelled Creat Clearance w eGFR 17.02 Cancelled POC Glucometer Random Glucose 168 H Cancelled Calcium 7.6 L Cancelled Phosphorus 3.7 Magnesium 2.7 H Total Bilirubin 0.5 Cancelled AST 17 Cancelled ALT 17 Cancelled Alkaline Phosphatase 62 Cancelled Total Protein 5.5 L Cancelled Albumin 2.7 L Cancelled Random Vancomycin 03/30/17 03/30/17 07:16 11:26 WBC RBC Hgb Hct MCV MCHC RDW Plt Count MPV PTT (Actin FS) Sodium Potassium Chloride Carbon Dioxide Anion Gap BUN Creatinine Creat Clearance w eGFR POC Glucometer [phone] Random Glucose Calcium Phosphorus Magnesium Total Bilirubin AST ALT Alkaline Phosphatase Total Protein Albumin Random Vancomycin Active Medications Generic Name Dose Route Start Last Admin Trade Name Freq PRN Reason Stop Dose Admin Amiodarone HCl 400 mg 03/26/17 10:00 03/30/17 10:03 Cordarone - PO 400 mg DAILY SARAH Administration Atorvastatin Calcium 80 mg 03/18/17 09:45 03/29/17 21:48 Lipitor - NGT 80 mg HS SARAH Administration Chlorhexidine Gluconate 1 applic 03/17/17 22:00 03/29/17 21:48 Hibiclens For Decolonization - TP 1 applic HS SARAH Administration Chlorhexidine Gluconate 15 ml 03/18/17 22:15 03/30/17 10:04 Peridex - MM 15 ml BID SARAH Administration Furosemide 80 mg 03/30/17 14:00 03/30/17 15:31 Lasix Injection - IVPUSH 80 mg BID@0600,1400 SARAH Administration Heparin Sodium (Porcine) 1,000 unit 03/22/17 08:38 03/28/17 10:59 Heparin - IVPUSH 1,000 unit PRN PRN Administration Heparin Heparin Sodium (Porcine) 5,000 unit 03/22/17 08:38 Heparin - IVPUSH PRN PRN Heparin Hydrocortisone Sodium Succinate 50 mg 03/28/17 10:00 03/30/17 10:04 Solu-Cortef - IVPB 50 mg Q8H-IV SARAH Administration Heparin Sodium (Porcine) 25, 500 mls @ 20 mls/hr 03/22/17 08:45 03/30/17 09:33 000 unit/ Sodium Chloride IV 26 mls/hr TITR SARAH Administration Protocol 1,000 UNIT/HR Propofol 100 mls @ 4.38 mls/hr 03/23/17 12:00 03/30/17 15:43 Diprivan - IVPB 17.52 mls/hr TITR SARAH Administration Protocol 5 MCG/KG/MIN Norepinephrine Bitartrate 8, 258 mls @ 15.48 mls/hr 03/30/17 08:15 03/30/17 12: 33 000 mcg/ Dextrose IV 23.22 mls/hr TITR SARAH Administration Protocol 8 MCG/MIN Insulin Aspart 1 vial 03/24/17 07:00 03/30/17 11:44 Novolog Vial Sliding Scale - SQ 4 units ACHS SARAH Administration Protocol Pantoprazole Sodium 40 mg 03/18/17 10:00 03/30/17 10:03 Protonix 40mg Ivpb (Pre-Docked) IVPB 40 mg DAILY SARAH Administration CXR: Unchanged from previous study. ASSESSMENT/PLAN: 76 year old male w/ a significant PMH of diastolic CHF, biventricular pacemaker , COPD, HTN, HLD, Atrial Fibrillation, renal insufficiency, morbid obesity, Prostate CA, Sleep apnea on O2, generalized weakness (wheelchair-bound), Glaucoma BIBA from [facility] s/p Cardiac arrest due to V.Fib. Neuro: -sedated, on [facility] ventilation, FiO2 decreased to 40% CVS: Cardiac arrest: pacemaker interrogation showed Vfib, vacation sedation, Propofol 5 mcg/KG/MIN stopped Pressors: Dopamine DC and continue Norepinephrine 12 mcg/kg/min continue ventilatory support f/u ABG daily cont. PO amiodarone 400 mg qd cont. Furosemide HTN: hold antihypertensives Non ischemic CAD/Non ischemic cardiomyopathy: cont Lipitor Afib: INR supratherapeutic hold coumadin for now Digoxin if HR increases Digoxin level within range HLD: lipitor 80mg HS ID: -MRSA sputum -Vanco level ordered this AM -blood cultures pending Pulm: COPD: on home oxygen PRN continue ventilatory support for now broncho dilators Obstructive Sleep Apnea: on vent for now Renal: -another dialysis today 4.5 L of fluid removed -continue Furosemide CKD stage 3: at baseline renally dose all medications monitor Cr Endo: Hyperglycemia: A1C 6.4 Insulin sliding scale FEN: keep net negative fluid balance. Supplemental Manager consulted for tube feeds, will continue Glucerna tube feeds PPx: INR supratherapeutic, Protonix Dispo: continue ICU monitor. full code, will do tracheostomy tomorrow Problem List - Problems (1) A-fib Code(s): I48.91 - UNSPECIFIED ATRIAL FIBRILLATION Qualifiers: Qualified Code(s): I48.91 - Unspecified atrial fibrillation (2) Acute on chronic diastolic CHF (congestive heart failure) Code(s): I50.33 - ACUTE ON CHRONIC DIASTOLIC (CONGESTIVE) HEART FAILURE (3) Anemia Code(s): D64.9 - ANEMIA, UNSPECIFIED (4) CKD (chronic kidney disease) Code(s): N18.9 - CHRONIC KIDNEY DISEASE, UNSPECIFIED Qualifiers: Qualified Code(s): N18.4 - Chronic kidney disease, stage 4 (severe) (5) Cardiac arrest Code(s): I46.9 - CARDIAC ARREST, CAUSE UNSPECIFIED (6) DVT prophylaxis Code(s): ZAA5854 - (7) HTN (hypertension) Code(s): I10 - ESSENTIAL (PRIMARY) HYPERTENSION (8) Hyperkalemia Code(s): E87.5 - HYPERKALEMIA (9) Hyperlipidemia Code(s): E78.5 - HYPERLIPIDEMIA, UNSPECIFIED (10) 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 hypertension Code(s): I27.2 - OTHER SECONDARY PULMONARY HYPERTENSION (11) Sleep apnea Code(s): G47.30 - SLEEP APNEA, UNSPECIFIED Visit type - Emergency Visit Emergency Visit: Yes ED Registration Date: 03/17/17 Care time: The patient presented to the Emergency Department on the above date and was hospitalized for further evaluation of their emergent condition. - New Patient This patient is new to me today: No - Critical Care Critical Care patient: Yes Total Critical Care Time (in minutes): 45 Critical Care Statement: The care of this patient involved high complexity decision making to prevent further life threatening deterioration of the patient 's condition and/or to evalute & treat vital organ system(s) failure or risk of failure.
--- NOTE | 2017-03-30 20:35 | PN ---
Teaching Attending Note Name of Resident: Cleve Bourgeois ATTENDING PHYSICIAN STATEMENT I saw and evaluated the patient. I reviewed the resident's note and discussed the case with the resident. I agree with the resident's findings and plan as documented. SUBJECTIVE: Patient is sedated on Vent, FiO2 40% , in ICU continues to be on Levophed, for HD today. OBJECTIVE: Vital Signs Temperature 98.7 F 03/30/17 16:00 Pulse Rate 74 03/30/17 18:00 Respiratory Rate 22 03/30/17 19:18 Blood Pressure 103/53 03/30/17 18:00 O2 Sat by Pulse Oximetry (%) 100 03/30/17 10:32 CBCD WBC 15.7 K/mm3 (4.0-10.0) H 03/30/17 05:45 RBC 3.50 M/mm3 (4.00-5.60) L 03/30/17 05:45 Hgb 9.0 GM/dL (11.7-16.9) L 03/30/17 05:45 Hct 28.0 % (35.4-49) L 03/30/17 05:45 MCV 80.0 fl (80-96) 03/30/17 05:45 MCHC 32.0 g/dl (32.0-35.9) 03/30/17 05:45 RDW 18.5 % (11.9-15.9) H 03/30/17 05:45 Plt Count 203 K/MM3 (134-434) D 03/30/17 05:45 MPV 9.0 fl (7.5-11.1) 03/30/17 05:45 CMP Sodium 132 mmol/L (136-145) L 03/30/17 05:45 Potassium 3.3 mmol/L (3.5-5.1) L 03/30/17 05:45 Chloride 93 mmol/L (98-107) L 03/30/17 05:45 Carbon Dioxide 26 mmol/L (21-32) 03/30/17 05:45 Anion Gap 13 (8-16) 03/30/17 05:45 BUN 96 mg/dL (7-18) H 03/30/17 05:45 Creatinine 3.5 mg/dL (0.7-1.3) H 03/30/17 05:45 Creat Clearance w eGFR 17.02 (>60) 03/30/17 05:45 Random Glucose 168 mg/dL (74-106) H 03/30/17 05:45 Calcium 7.6 mg/dL (8.5-10.1) L 03/30/17 05:45 Total Bilirubin 0.5 mg/dL (0.2-1.0) 03/30/17 05:45 AST 17 U/L (15-37) 03/30/17 05:45 ALT 17 U/L (12-78) 03/30/17 05:45 Alkaline Phosphatase 62 U/L (45-117) 03/30/17 05:45 Total Protein 5.5 g/dl (6.4-8.2) L 03/30/17 05:45 Albumin 2.7 g/dl (3.4-5.0) L 03/30/17 05:45 CARDIAC ENZYMES Creatine Kinase 146 IU/L (39-308) 03/18/17 10:23 Troponin I 0.16 ng/ml (0.00-0.05) H D 03/18/17 10:23 Current Medications Generic Name Dose Route Start Last Admin Trade Name Freq PRN Reason Stop Dose Admin Amiodarone HCl 400 mg 03/26/17 10:00 03/30/17 10:03 Cordarone - PO 400 mg DAILY SARAH Administration Atorvastatin Calcium 80 mg 03/18/17 09:45 03/29/17 21:48 Lipitor - NGT 80 mg HS SARAH Administration Chlorhexidine Gluconate 1 applic 03/17/17 22:00 03/29/17 21:48 Hibiclens For Decolonization - TP 1 applic HS SARAH Administration Chlorhexidine Gluconate 15 ml 03/18/17 22:15 03/30/17 10:04 Peridex - MM 15 ml BID SARAH Administration Furosemide 80 mg 03/30/17 14:00 03/30/17 15:31 Lasix Injection - IVPUSH 80 mg BID@0600,1400 SARAH Administration Heparin Sodium (Porcine) 1,000 unit 03/22/17 08:38 03/28/17 10:59 Heparin - IVPUSH 1,000 unit PRN PRN Administration Heparin Heparin Sodium (Porcine) 5,000 unit 03/22/17 08:38 Heparin - IVPUSH PRN PRN Heparin Hydrocortisone Sodium Succinate 50 mg 03/28/17 10:00 03/30/17 18:06 Solu-Cortef - IVPB 50 mg Q8H-IV SARAH Administration Heparin Sodium (Porcine) 25, 500 mls @ 20 mls/hr 03/22/17 08:45 03/30/17 09:33 000 unit/ Sodium Chloride IV 26 mls/hr TITR SARAH Administration Protocol 1,000 UNIT/HR Propofol 100 mls @ 4.38 mls/hr 03/23/17 12:00 03/30/17 15:43 Diprivan - IVPB 17.52 mls/hr TITR SARAH Administration Protocol 5 MCG/KG/MIN Norepinephrine Bitartrate 8, 258 mls @ 15.48 mls/hr 03/30/17 08:15 03/30/17 12: 33 000 mcg/ Dextrose IV 23.22 mls/hr TITR SARAH Administration Protocol 8 MCG/MIN Insulin Aspart 1 vial 03/24/17 07:00 03/30/17 18:04 Novolog Vial Sliding Scale - SQ 4 units ACHS SARAH Administration Protocol Pantoprazole Sodium 40 mg 03/18/17 10:00 03/30/17 10:03 Protonix 40mg Ivpb (Pre-Docked) IVPB 40 mg DAILY SARAH Administration Home Medications Medication Instructions Recorded Allopurinol 300 mg PO DAILY 03/17/17 Digoxin [Lanoxin -] 0.125 mg PO DAILY 03/17/17 Docusate Sodium [Colace -] 300 mg PO HS 03/17/17 Ferrous Sulfate 650 mg PO BID 03/17/17 Furosemide [Lasix -] 80 mg PO DAILY 03/17/17 Latanoprost 0.005% Eye Drops 1 drop OU HS 03/17/17 [Xalatan 0.005% Eye Drops -] Metolazone [Zaroxolyn -] 2.5 mg PO AM 03/17/17 Nystatin Cream [Mycostatin] 1 applic TP BID 03/17/17 Polyethylene Glycol 3350 [Miralax 17 gm PO DAILY 03/17/17 (For Daily Use) -] Sennosides [Evac-U-Gen] 2 tab PO DAILY 03/17/17 Simvastatin [Zocor -] 80 mg PO HS 03/17/17 Sod Lactate/Amm Lact/Pot Lact 1 applic TP BID 03/17/17 [Amlactin Ultra Body Cream] Triamcinolone 0.1% Cream 1 applic TP BID 03/17/17 [Aristocort] Warfarin Na [Coumadin -] 7.5 mg PO Q7D 03/17/17 Warfarin Sodium [Coumadin] 5 mg PO ASDIR 03/17/17 ASSESSMENT AND PLAN: 76 y/o man with h/o Severe cardiomypathy( non ischemic ) ,with severely reduced EF, and PULm HTN, Diastolic dysfunction , A fib on AC, who presented with cardiac arrest (V fib ) from his skilled nursing # Acute hypoxic respiratory failure s/p Intubation unable to wean him off: continue pressers titrate as needed, hydrocortisone, keep MAP > 65 .Due to having almost complete left opacification of left lung. Patient on dialysis continue as per . Off Lasix drip on Lasix 80mg IV BID. For trach as per ICU # S/P cardiac arrest s/p hypothermic protocol: due to severe Right sided cardiomyopathy ,with Severe non-ischemic cardiomypoathy, patient has a defibrillator ,was interrogated on admission .On levophed ggt off dopamine drip ; for BP support to continue, cont Amio.400 mg po daily started on 03/26 # Acute on Chronic renal insufficiency with volume overload (non-oliguric), had 3rd dialysis today , will continue HD as per nephro. # Acute hypokalemia repleted # sputum with MRSA s/p Vancmycin # Acute on chronic systolic and diastolic heart failure off lasix gtt. on IV LAsix now # A fib: rate is controlled on heparin drip continue # CKD : Cr slightly increased monitor , renal on the case . DVT px :on heparin drip
[2017-03-30] MEDS ORDERED: NOREPINEPHRINE BITARTRATE 4 MG/4 ML ML IV ONE (20:58)
[2017-03-30] MEDS: ATORVASTATIN CA 80 MG TABLET (FP) NGT SCH (22:26)
[2017-03-30] MEDS: CHLORHEXIDINE GLUCONATE 4% CLEANSER FOR DECOLONIZATION TP SCH (22:26)
[2017-03-30] MEDS ORDERED: HEMOQUE TEST 1 EACH EACH ONE (23:24)
[2017-03-31] MEDS: WATER IV SCH ×4 (00:05→20:59)
[2017-03-31] MEDS: NOREPINEPHRINE BITARTRATE IV SCH ×4 (00:05→20:59)
[2017-03-31] MEDS: DEXTROSE 5% IV SCH ×4 (00:05→20:59)
[2017-03-31] MEDS: PROPOFOL 100 ML IVPB SCH ×2 (00:05→13:45)
[2017-03-31] MEDS ORDERED: NOREPINEPHRINE BITARTRATE 4 MG/4 ML ML IV ONE ×4 (00:36→20:42)
[2017-03-31] MEDS: HEPARIN - 25,000 UNIT in SODIUM CHLORIDE 495 ML IV SCH ×2 (01:00→17:49)
[2017-03-31] MEDS ORDERED: PROPOFOL 100 ML ONE (01:04)
[2017-03-31] MEDS: HYDROCORTISONE SOD SUCCINATE 100 MG/2 ML VIAL IVPB SCH ×3 (03:03→17:50)
[2017-03-31] MEDS: BANATROL PLUS POWDER PACKET PO SCH ×3 (05:35→21:14)
[2017-03-31] MEDS: FUROSEMIDE 40 MG/4 ML INJECTABLE VIAL IVPUSH SCH ×2 (05:37→14:25)
[2017-03-31 06:06] LABS: HEP B SURFACE AB Non Reactive (.)
[2017-03-31 06:22] LABS: MCH 24.9 pg (25.7-33.7); MCHC 30.7 g/dl (32.0-35.9); MEAN PLT VOLUME 9.4 fl (7.5-11.1); PLATELET COUNT 200 K/MM3 (134-434); RDW 18.4 % (11.9-15.9)
[2017-03-31 06:43] LABS: ALBUMIN 2.5 g/dl (3.4-5.0); CALCIUM 7.6 mg/dL (8.5-10.1); CREATININE 3.2 mg/dL (0.7-1.3); MAGNESIUM 2.5 mg/dL (1.8-2.4); PHOSPHOROUS 2.9 mg/dL (2.5-4.9); TOT PROT 5.6 g/dl (6.4-8.2)
[2017-03-31] MEDS: INSULIN SLIDING SCALE (NOVOLOG) 1 VIAL SQ SCH ×4 (06:45→22:35)
--- NOTE | 2017-03-31 09:18 | PN ---
Physical Exam: SUBJECTIVE: Patient seen and examined at bedside. No overnight events. No new complaints. Continues to have back pain but refuses pain meds.Appetite has improved. Denies CP,CASEY, palpitations, abd. pain, N/V. OBJECTIVE: Vital Signs Period Temp Pulse Resp BP Sys/Krishnan Pulse Ox Last 24 Hr 98 F-98.9 F 63-94 10-28 68-125/42-75 91-100 GENERAL: The patient is awake, alert, and fully oriented, in no acute distress. HEAD: Normal with no signs of trauma. EYES: PERRL, extraocular movements intact, sclera anicteric, conjunctiva clear. No ptosis. ENT: Ears normal, nares patent, oropharynx clear without exudates, moist mucous membranes. NECK: Trachea midline, full range of motion, supple. LUNGS: Breath sounds equal, clear to auscultation bilaterally, no wheezes, no crackles, no accessory muscle use. HEART: Regular rate and rhythm, S1, S2 without murmur, rub or gallop. ABDOMEN: Soft, nontender, nondistended, normoactive bowel sounds, no guarding, no rebound, no hepatosplenomegaly, no masses. EXTREMITIES: 2+ pulses, warm, well-perfused, no edema. NEUROLOGICAL: Cranial nerves II through XII grossly intact. Normal speech, gait not observed. PSYCH: Normal mood, normal affect. SKIN: Warm, dry, normal turgor, no rashes or lesions noted Laboratory Results - last 24 hr 03/27/17 03/30/17 03/30/17 16:45 05:45 11:26 WBC RBC Hgb Hct MCV MCHC RDW Plt Count MPV Neutrophils % Lymphocytes % PTT (Actin FS) Sodium 132 L Potassium 3.3 L Chloride 93 L Carbon Dioxide 26 Anion Gap 13 BUN 96 H Creatinine 3.5 H Creat Clearance w eGFR 17.02 POC Glucometer [phone] Random Glucose 168 H Calcium 7.6 L Phosphorus Magnesium Total Bilirubin 0.5 AST 17 ALT 17 Alkaline Phosphatase 62 Total Protein 5.5 L Albumin 2.7 L Hep A IgM Ab Confirm Negative Hepatitis A Ab Total Positive H Hep Bs Antigen Negative Hep Bs Antibody Non reactive Hep B Core Total Ab Negative 03/30/17 03/30/17 03/31/17 17:44 23:27 05:00 WBC RBC Hgb Hct MCV MCHC RDW Plt Count MPV Neutrophils % Lymphocytes % PTT (Actin FS) 53.3 H Sodium Potassium Chloride Carbon Dioxide Anion Gap BUN Creatinine Creat Clearance w eGFR POC Glucometer [phone] Random Glucose Calcium Phosphorus Magnesium Total Bilirubin AST ALT Alkaline Phosphatase Total Protein Albumin Hep A IgM Ab Confirm Hepatitis A Ab Total Hep Bs Antigen Hep Bs Antibody Hep B Core Total Ab 03/31/17 03/31/17 03/31/17 05:00 05:00 05:26 WBC 52.0 H* D RBC 3.50 L Hgb 8.7 L Hct 28.4 L MCV 81.0 MCHC 30.7 L RDW 18.4 H Plt Count 200 MPV 9.4 Neutrophils % Y Lymphocytes % Y PTT (Actin FS) Sodium 134 L Potassium 3.1 L Chloride 93 L Carbon Dioxide 25 Anion Gap 16 BUN 75 H D Creatinine 3.2 H Creat Clearance w eGFR 18.88 POC Glucometer [phone] Random Glucose 122 H D Calcium 7.6 L Phosphorus 2.9 D Magnesium 2.5 H Total Bilirubin 1.0 D AST 24 D ALT 19 Alkaline Phosphatase 83 D Total Protein 5.6 L Albumin 2.5 L Hep A IgM Ab Confirm Hepatitis A Ab Total Hep Bs Antigen Hep Bs Antibody Hep B Core Total Ab Active Medications Generic Name Dose Route Start Last Admin Trade Name Freq PRN Reason Stop Dose Admin Amiodarone HCl 400 mg 03/26/17 10:00 03/30/17 10:03 Cordarone - PO 400 mg DAILY SARAH Administration Atorvastatin Calcium 80 mg 03/18/17 09:45 03/30/17 22:26 Lipitor - NGT 80 mg HS SARAH Administration Chlorhexidine Gluconate 1 applic 03/17/17 22:00 03/30/17 22:26 Hibiclens For Decolonization - TP 1 applic HS SARAH Administration Chlorhexidine Gluconate 15 ml 03/18/17 22:15 03/30/17 22:26 Peridex - MM 15 ml BID SARAH Administration Furosemide 80 mg 03/30/17 14:00 03/31/17 05:37 Lasix Injection - IVPUSH Not Given BID@0600,1400 SARAH Heparin Sodium (Porcine) 1,000 unit 03/22/17 08:38 03/28/17 10:59 Heparin - IVPUSH 1,000 unit PRN PRN Administration Heparin Heparin Sodium (Porcine) 5,000 unit 03/22/17 08:38 Heparin - IVPUSH PRN PRN Heparin Hydrocortisone Sodium Succinate 50 mg 03/28/17 10:00 03/31/17 03:03 Solu-Cortef - IVPB 50 mg Q8H-IV SARAH Administration Heparin Sodium (Porcine) 25, 500 mls @ 20 mls/hr 03/22/17 08:45 03/31/17 01:00 000 unit/ Sodium Chloride IV 26 mls/hr TITR SARAH Administration Protocol 1,000 UNIT/HR Propofol 100 mls @ 4.38 mls/hr 03/23/17 12:00 03/31/17 00:05 Diprivan - IVPB 4.38 mls/hr TITR SARAH Administration Protocol 5 MCG/KG/MIN Norepinephrine Bitartrate 8, 258 mls @ 15.48 mls/hr 03/30/17 08:15 03/31/17 08: 15 000 mcg/ Dextrose IV 77.4 mls/hr TITR SARAH Administration Protocol 8 MCG/MIN Insulin Aspart 1 vial 03/24/17 07:00 03/31/17 06:45 Novolog Vial Sliding Scale - SQ 2 units ACHS SARAH Administration Protocol Pantoprazole Sodium 40 mg 03/18/17 10:00 03/30/17 10:03 Protonix 40mg Ivpb (Pre-Docked) IVPB 40 mg DAILY SARAH Administration ASSESSMENT/PLAN: Problem List - Problems (1) Cardiac arrest Assessment/Plan: * Remains intubated and sedated. * hypotensive overnight-->Levophed increased to 40mcg/hr * Trach. scheduled for Thurs. * Maintaining MAP > 65 * Currently:Norepinephrine 40mcg/hr * Amiodarone 400mg PO daily * Continue ICU monitoring. (2) Positive culture findings in sputum Assessment/Plan: * sputum (+) for MRSA * Continue Vancomycin daily with repeat trough * will repeat AM labs. (3) Acute on chronic diastolic CHF (congestive heart failure) Assessment/Plan: * Lasix 80mg BID IVPUSH * monitor I/O's * daily weights. (4) CKD (chronic kidney disease) Assessment/Plan: * No dailysis today. * Stage 4 GFR 23 * will plan additional UF tomorrow. * continue Lasix 80mg IV BID (5) A-fib Assessment/Plan: * Currently paced * followed by EP Dr. Ace will continue Amiodarone. * will hold off on AV blockage due to hypotension * Digoxin held due to renal function. (6) DVT prophylaxis Assessment/Plan: * Heparin GGT * SCD's bilat. Visit type - Emergency Visit Emergency Visit: Yes ED Registration Date: 03/17/17 Care time: The patient presented to the Emergency Department on the above date and was hospitalized for further evaluation of their emergent condition. - New Patient This patient is new to me today: No - Critical Care Critical Care patient: Yes Total Critical Care Time (in minutes): 40 Critical Care Statement: The care of this patient involved high complexity decision making to prevent further life threatening deterioration of the patient 's condition and/or to evalute & treat vital organ system(s) failure or risk of failure.
[2017-03-31 09:26] LABS: METAMYELOCYTE 1 % (0-2); PLATELET ESTIMATE ADEQUATE (NORMAL)
[2017-03-31 09:27] LABS: TOXIC GRANULATION 2+
--- NOTE | 2017-03-31 09:59 | PN ---
Progress Note (short form) - Note Progress Note: Renal Follow up for SUJATA/Fluid overload Pt seen and examined in the ICU on Vent Levophed requirement increaed overnight WBC > 50k this am MAPs in low 60's s/p HD with UF yesterday no fevers Vital Signs Temperature 98.9 F 03/31/17 06:00 Pulse Rate 86 03/31/17 09:28 Respiratory Rate 27 H 03/31/17 09:15 Blood Pressure 93/47 03/31/17 09:00 O2 Sat by Pulse Oximetry (%) 93 L 03/31/17 09:38 Intake & Output 03/28/17 03/29/17 03/30/17 03/31/17 23:59 23:59 23:59 23:59 Intake Total 3826.0 4601 2316 1743 Output Total 1800 650 450 300 Balance 2026.0 3951 1866 1443 Weight 339 lb 1 oz 330 lb 11.094 oz 337 lb 8.443 oz 337 lb 11.971 oz Gen: on Vent, sedated CVS: RRR, No M/R Lungs: DEC BS throughout the lung ortiz, no rales Abd: soft, Obese, ND Ext: 2+ edema in LE, no cyanosis, warm ext : Ridley in place CBC, BMP 03/31/17 05:00 03/31/17 05:00 Current Medications Amiodarone HCl (Cordarone -) 400 mg PO DAILY [facility] Last Admin: 03/30/17 10:03 Dose: 400 mg Atorvastatin Calcium (Lipitor -) 80 mg NGT HS [facility] Last Admin: 03/30/17 22:26 Dose: 80 mg Chlorhexidine Gluconate (Hibiclens For Decolonization -) 1 applic TP HS [facility] Last Admin: 03/30/17 22:26 Dose: 1 applic Chlorhexidine Gluconate (Peridex -) 15 ml MM BID [facility] Last Admin: 03/30/17 22:26 Dose: 15 ml Furosemide (Lasix Injection -) 80 mg IVPUSH BID@0600,1400 [facility] Last Admin: 03/31/17 05:37 Dose: Not Given Heparin Sodium (Porcine) (Heparin -) 1,000 unit IVPUSH PRN PRN PRN Reason: Heparin Last Admin: 03/28/17 10:59 Dose: 1,000 unit Heparin Sodium (Porcine) (Heparin -) 5,000 unit IVPUSH PRN PRN PRN Reason: Heparin Hydrocortisone Sodium Succinate (Solu-Cortef -) 50 mg IVPB Q8H-IV SARAH Last Admin: 03/31/17 03:03 Dose: 50 mg Heparin Sodium (Porcine) 25, (000 unit/ Sodium Chloride) 500 mls @ 20 mls/hr IV TITR SARAH; 1,000 UNIT/HR PRN Reason: Protocol Last Admin: 03/31/17 01:00 Dose: 26 mls/hr Propofol (Diprivan -) 100 mls @ 4.38 mls/hr IVPB TITR SARAH; 5 MCG/KG/MIN PRN Reason: Protocol Last Admin: 03/31/17 00:05 Dose: 4.38 mls/hr Norepinephrine Bitartrate 8, (000 mcg/ Dextrose) 258 mls @ 15.48 mls/hr IV TITR SARAH; 8 MCG/MIN PRN Reason: Protocol Last Admin: 03/31/17 08:15 Dose: 77.4 mls/hr Insulin Aspart (Novolog Vial Sliding Scale -) 1 vial SQ ACHS SARAH PRN Reason: Protocol Last Admin: 03/31/17 06:45 Dose: 2 units Pantoprazole Sodium (Protonix 40mg Ivpb (Pre-Docked)) 40 mg IVPB DAILY SARAH Last Admin: 03/30/17 10:03 Dose: 40 mg A/P 76 year old Gentleman with PMhx of CKD, CHF, Hypertension, Afib, Obesity, Prostate Ca who presented s/p cardiac arrest with SUJATA and Volume overload #Non-Oliguric Acute on Chronic renal insufficiency with volume overload s/p HD and UF yesterday, removed 4kg was planned for isolated UF today but given hypotension and higher presser requirement will defer for now Will continue HD/UF as needed based on clinical status #Hypokalemia KCL 40meq IV today Repeat labs in the afternoon keep Mg > 2 #Shock/Resp Failure Titrate pressers as per ICU Vent support Repeat cultures ID follow up Check C-diff #Anemia Trend CBC, transfuse as per ICU protocol Thank you Garry Drew DO
[2017-03-31] MEDS ORDERED: DOPamine HCL 400 MG/10 ML VIAL ONE ×2 (10:17→20:56)
[2017-03-31] MEDS: SODIUM CHLORIDE IV SCH (10:30)
[2017-03-31] MEDS: DOPAMINE HCL IV SCH (10:30)
[2017-03-31] MEDS ORDERED: DOPAMINE 400 MG/D5W - 250 ML IV SCH (10:30)
[2017-03-31] MEDS: CHLORHEXIDINE GLUCONATE 0.12% 15ML CUP MM SCH ×2 (10:37→21:14)
[2017-03-31] MEDS: PANTOPRAZOLE SODIUM 40 MG/100 ML PRE-DOCKED IVPB SCH (10:37)
[2017-03-31] MEDS: AMIODARONE HCL 200 MG TABLET (FP) PO SCH (10:37)
[2017-03-31] MEDS ORDERED: POTASSIUM CHLORIDE 20 MEQ PREMIX IVPB 100 ML IVPB ONE ×2 (11:00→12:30)
--- NOTE | 2017-03-31 11:35 | PN ---
Progress Note, Physician History of Present Illness: Awake on ventilator WBC markedly elevated 52k + loose stool No fever reported - Current Medication List Current Medications: Active Medications Amiodarone HCl (Cordarone -) 400 mg PO DAILY [facility] Last Admin: 03/31/17 10:37 Dose: 400 mg Atorvastatin Calcium (Lipitor -) 80 mg NGT HS [facility]AH Last Admin: 03/30/17 22:26 Dose: 80 mg Chlorhexidine Gluconate (Hibiclens For Decolonization -) 1 applic TP HS [facility] Last Admin: 03/30/17 22:26 Dose: 1 applic Chlorhexidine Gluconate (Peridex -) 15 ml MM BID SARAH Last Admin: 03/31/17 10:37 Dose: 15 ml Furosemide (Lasix Injection -) 80 mg IVPUSH BID@0600,1400 [facility] Last Admin: 03/31/17 05:37 Dose: Not Given Heparin Sodium (Porcine) (Heparin -) 1,000 unit IVPUSH PRN PRN PRN Reason: Heparin Last Admin: 03/28/17 10:59 Dose: 1,000 unit Heparin Sodium (Porcine) (Heparin -) 5,000 unit IVPUSH PRN PRN PRN Reason: Heparin Hydrocortisone Sodium Succinate (Solu-Cortef -) 50 mg IVPB Q8H-IV SARAH Last Admin: 03/31/17 10:38 Dose: 50 mg Heparin Sodium (Porcine) 25, (000 unit/ Sodium Chloride) 500 mls @ 20 mls/hr IV TITR SARAH; 1,000 UNIT/HR PRN Reason: Protocol Last Admin: 03/31/17 01:00 Dose: 26 mls/hr Propofol (Diprivan -) 100 mls @ 4.38 mls/hr IVPB TITR SARAH; 5 MCG/KG/MIN PRN Reason: Protocol Last Titration: 03/31/17 10:00 Dose: 0 mcg/kg/min Norepinephrine Bitartrate 8, (000 mcg/ Dextrose) 258 mls @ 15.48 mls/hr IV TITR SARAH; 8 MCG/MIN PRN Reason: Protocol Last Titration: 03/31/17 10:57 Dose: 20 mcg/min Dopamine HCl 800,000 mcg/ (Sodium Chloride) 250 mls @ 22.98 mls/hr IV TITR SARAH ; 8 MCG/KG/MIN PRN Reason: Protocol Last Admin: 03/31/17 10:30 Dose: 14.36 mls/hr Insulin Aspart (Novolog Vial Sliding Scale -) 1 vial SQ ACHS SARAH PRN Reason: Protocol Last Admin: 03/31/17 06:45 Dose: 2 units Pantoprazole Sodium (Protonix 40mg Ivpb (Pre-Docked)) 40 mg IVPB DAILY [facility] Last Admin: 03/31/17 10:37 Dose: 40 mg Potassium Chloride (Potassium Chloride 20 Meq Premix Ivpb -) 20 meq IVPB ONCE ONE Stop: 03/31/17 12:31 - Objective Vital Signs: Vital Signs Temperature 98.9 F 03/31/17 06:00 Pulse Rate 96 H 03/31/17 10:57 Respiratory Rate 24 03/31/17 10:45 Blood Pressure 115/66 03/31/17 10:57 O2 Sat by Pulse Oximetry (%) 93 L 03/31/17 09:38 Constitutional: Yes: Obese Eyes: Yes: Conjunctiva Clear Cardiovascular: Yes: Regular Rate and Rhythm, S1, S2 Respiratory: Yes: Mechanically Ventilated Gastrointestinal: Yes: Normal Bowel Sounds, Soft. No: Tenderness Edema: Yes Integumentary: Yes: Other (multiple catheters) Labs: CBC, BMP 03/31/17 05:00 03/31/17 05:00 INR, PTT INR 1.53 (0.82-1.09) H 03/23/17 05:35 Assessment/Plan S/P cardiopulmonary arrest Respiratory failure Marked leukocytosis , possible C difficile Opacified L hemithorax Renal failure + sputum c/s MRSA Continue ventilatory support Repeat blood c/s Stool C difficile Start vanco via NGT
--- NOTE | 2017-03-31 11:52 | PN ---
Teaching Attending Note Name of Resident: Fani Allison ATTENDING PHYSICIAN STATEMENT I saw and evaluated the patient. I reviewed the resident's note and discussed the case with the resident. I agree with the resident's findings and plan as documented. SUBJECTIVE: Pt seen and examined in the ICU. Remains intubated, awake off sedation. Placed on CPAP/PS 12/5 but became tachypneic. Pressor requirements up overnight, no fevers recorded. OBJECTIVE: Last Vital Signs Temp Pulse Resp BP Pulse Ox 98.9 F 96 H 24 115/66 93 L 03/31/17 06:00 03/31/17 10:57 03/31/17 10:45 03/31/17 10:57 03/31/17 09:38 Intake & Output 03/28/17 03/29/17 03/30/17 03/31/17 23:59 23:59 23:59 23:59 Intake Total 3826.0 4601 2316 1743 Output Total 1800 650 450 300 Balance 2026.0 3951 1866 1443 Weight 339 lb 1 oz 330 lb 11.094 oz 337 lb 8.443 oz 337 lb 11.971 oz Gen: intubated, awake Heart: RRR Lung: distant breath sounds Abd: softly distended Ext: less edema CBC, BMP 03/31/17 05:00 03/31/17 05:00 Active Medications Amiodarone HCl (Cordarone -) 400 mg PO DAILY [facility] Last Admin: 03/31/17 10:37 Dose: 400 mg Atorvastatin Calcium (Lipitor -) 80 mg NGT HS [facility] Last Admin: 03/30/17 22:26 Dose: 80 mg Chlorhexidine Gluconate (Hibiclens For Decolonization -) 1 applic TP HS [facility] Last Admin: 03/30/17 22:26 Dose: 1 applic Chlorhexidine Gluconate (Peridex -) 15 ml MM BID SARAH Last Admin: 03/31/17 10:37 Dose: 15 ml Furosemide (Lasix Injection -) 80 mg IVPUSH BID@0600,1400 [facility] Last Admin: 03/31/17 05:37 Dose: Not Given Heparin Sodium (Porcine) (Heparin -) 1,000 unit IVPUSH PRN PRN PRN Reason: Heparin Last Admin: 03/28/17 10:59 Dose: 1,000 unit Heparin Sodium (Porcine) (Heparin -) 5,000 unit IVPUSH PRN PRN PRN Reason: Heparin Hydrocortisone Sodium Succinate (Solu-Cortef -) 50 mg IVPB Q8H-IV SARAH Last Admin: 03/31/17 10:38 Dose: 50 mg Heparin Sodium (Porcine) 25, (000 unit/ Sodium Chloride) 500 mls @ 20 mls/hr IV TITR SARAH; 1,000 UNIT/HR PRN Reason: Protocol Last Admin: 03/31/17 01:00 Dose: 26 mls/hr Propofol (Diprivan -) 100 mls @ 4.38 mls/hr IVPB TITR SARAH; 5 MCG/KG/MIN PRN Reason: Protocol Last Titration: 03/31/17 10:00 Dose: 0 mcg/kg/min Norepinephrine Bitartrate 8, (000 mcg/ Dextrose) 258 mls @ 15.48 mls/hr IV TITR SARAH; 8 MCG/MIN PRN Reason: Protocol Last Titration: 03/31/17 10:57 Dose: 20 mcg/min Dopamine HCl 800,000 mcg/ (Sodium Chloride) 250 mls @ 22.98 mls/hr IV TITR SARAH ; 8 MCG/KG/MIN PRN Reason: Protocol Last Admin: 03/31/17 10:30 Dose: 14.36 mls/hr Insulin Aspart (Novolog Vial Sliding Scale -) 1 vial SQ ACHS SARAH PRN Reason: Protocol Last Admin: 03/31/17 06:45 Dose: 2 units Pantoprazole Sodium (Protonix 40mg Ivpb (Pre-Docked)) 40 mg IVPB DAILY [facility] Last Admin: 03/31/17 10:37 Dose: 40 mg Potassium Chloride (Potassium Chloride 20 Meq Premix Ivpb -) 20 meq IVPB ONCE ONE Stop: 03/31/17 12:31 Vancomycin HCl (Vancomycin Oral Solution) 125 mg PO Q6HPO SARAH ASSESSMENT AND PLAN: s/p Vfib Cardiac Arrest Acute on Chronic Hypoxic Respiratory Failure Acute on Chronic Diastolic Heart Failure Severe Pulmonary HTN s/p BiV PPM CAD +Troponins Atrial Fibrillation HTN CKD Hyperlipidemia DM COPD Morbid Obesity Obstructive Sleep Apnea - send cultures for significant leukocytosis - stool for C diff - keep K>4, Mg>2 - continue amiodarone - continue anticoagulation - decrease hydrocortisone to 25mg BID - lasix changed to boluses - titrate levophed gtt to maintain MAP >65 - monitor urine output, creatinine - HD per renal - poor visualization of left hemithorax on bedside ultrasound, will need CT chest when more stable - taper FiO2 to keep SpO2 >90% - daily sedation vacations to assess mental status - spontaneous breathing trials as tolerated - enteral feeds - DVT/GI prophylaxis - continue ICU monitoring - will likely need tracheostomy, scheduled for 04/02 critical care time spent in reviewing chart, evaluating patient and formulating plan 40 min
--- NOTE | 2017-03-31 13:08 | PN ---
Physical Exam: SUBJECTIVE: Patient seen and examined in ICU. He is sedated but arousable. Overnight he had episode of hypotension, increased Norepinephrine drip. No fever. OBJECTIVE: Vital Signs Period Temp Pulse Resp BP Sys/Krishnan Pulse Ox Last 24 Hr 98 F-98.9 F 63-96 10-28 68-115/42-75 91-100 GENERAL: The patient is sedated, arousable, on mechanical ventilation. HEAD: Normal with no signs of trauma. EYES: sclera anicteric, conjunctiva clear. ENT: moist mucous membranes. NECK: Trachea midline, full range of motion, supple. LUNGS: Breath sounds equal, coarse breath sounds bilaterally, crackles B/L, no accessory muscle use. HEART: Regular rate and rhythm, S1, S2 without murmur, rub or gallop. ABDOMEN: Obese, soft, nontender, distended, normoactive bowel sounds, no guarding, no rebound, no masses, edema present. EXTREMITIES: 2+ pulses, warm, 2+ edema in LE and abdomen. NEUROLOGICAL: No facial asymmetry, following commands, motor 1/5 in all extremities, gait not observed, sedated. PSYCH: Sedated. Ridley cath, draining. Rectal tube. Dialysis cath inserted 03/27/17. Central line inserted 03/21/17. Laboratory Results - last 24 hr 03/27/17 03/30/17 03/30/17 16:45 17:44 23:27 WBC RBC Hgb Hct MCV MCHC RDW Plt Count MPV Neutrophils % Lymphocytes % Monocytes % Metamyelocytes Differential Comment Toxic Granulation Platelet Estimate PTT (Actin FS) Sodium Potassium Chloride Carbon Dioxide Anion Gap BUN Creatinine Creat Clearance w eGFR POC Glucometer [phone] Random Glucose Calcium Phosphorus Magnesium Total Bilirubin AST ALT Alkaline Phosphatase Total Protein Albumin Hep A IgM Ab Confirm Negative Hepatitis A Ab Total Positive H Hep Bs Antigen Negative Hep Bs Antibody Non reactive Hep B Core Total Ab Negative 03/31/17 03/31/17 03/31/17 05:00 05:00 05:00 WBC 52.0 H* D RBC 3.50 L Hgb 8.7 L Hct 28.4 L MCV 81.0 MCHC 30.7 L RDW 18.4 H Plt Count 200 MPV 9.4 Neutrophils % 97.0 H Lymphocytes % Y Monocytes % 2.0 L Metamyelocytes 1 Differential Comment Manual diff done Toxic Granulation 2+ Platelet Estimate Adequate PTT (Actin FS) 53.3 H Sodium 134 L Potassium 3.1 L Chloride 93 L Carbon Dioxide 25 Anion Gap 16 BUN 75 H D Creatinine 3.2 H Creat Clearance w eGFR 18.88 POC Glucometer Random Glucose 122 H D Calcium 7.6 L Phosphorus 2.9 D Magnesium 2.5 H Total Bilirubin 1.0 D AST 24 D ALT 19 Alkaline Phosphatase 83 D Total Protein 5.6 L Albumin 2.5 L Hep A IgM Ab Confirm Hepatitis A Ab Total Hep Bs Antigen Hep Bs Antibody Hep B Core Total Ab 03/31/17 05:26 WBC RBC Hgb Hct MCV MCHC RDW Plt Count MPV Neutrophils % Lymphocytes % Monocytes % Metamyelocytes Differential Comment Toxic Granulation Platelet Estimate PTT (Actin FS) Sodium Potassium Chloride Carbon Dioxide Anion Gap BUN Creatinine Creat Clearance w eGFR POC Glucometer [phone] Random Glucose Calcium Phosphorus Magnesium Total Bilirubin AST ALT Alkaline Phosphatase Total Protein Albumin Hep A IgM Ab Confirm Hepatitis A Ab Total Hep Bs Antigen Hep Bs Antibody Hep B Core Total Ab Active Medications Generic Name Dose Route Start Last Admin Trade Name Freq PRN Reason Stop Dose Admin Amiodarone HCl 400 mg 03/26/17 10:00 03/31/17 10:37 Cordarone - PO 400 mg DAILY SARAH Administration Atorvastatin Calcium 80 mg 03/18/17 09:45 03/30/17 22:26 Lipitor - NGT 80 mg HS SARAH Administration Chlorhexidine Gluconate 1 applic 03/17/17 22:00 03/30/17 22:26 Hibiclens For Decolonization - TP 1 applic HS SARAH Administration Chlorhexidine Gluconate 15 ml 03/18/17 22:15 03/31/17 10:37 Peridex - MM 15 ml BID SARAH Administration Furosemide 80 mg 03/30/17 14:00 03/31/17 05:37 Lasix Injection - IVPUSH Not Given BID@0600,1400 SARAH Heparin Sodium (Porcine) 1,000 unit 03/22/17 08:38 03/28/17 10:59 Heparin - IVPUSH 1,000 unit PRN PRN Administration Heparin Heparin Sodium (Porcine) 5,000 unit 03/22/17 08:38 Heparin - IVPUSH PRN PRN Heparin Hydrocortisone Sodium Succinate 50 mg 03/28/17 10:00 03/31/17 10:38 Solu-Cortef - IVPB 50 mg Q8H-IV SARAH Administration Heparin Sodium (Porcine) 25, 500 mls @ 20 mls/hr 03/22/17 08:45 03/31/17 01:00 000 unit/ Sodium Chloride IV 26 mls/hr TITR SARAH Administration Protocol 1,000 UNIT/HR Propofol 100 mls @ 4.38 mls/hr 03/23/17 12:00 03/31/17 10:00 Diprivan - IVPB 0 mcg/kg/min TITR SARAH Titration Protocol 5 MCG/KG/MIN Norepinephrine Bitartrate 8, 258 mls @ 15.48 mls/hr 03/30/17 08:15 03/31/17 10: 57 000 mcg/ Dextrose IV 20 mcg/min TITR SARAH Titration Protocol 8 MCG/MIN Dopamine HCl 800,000 mcg/ 250 mls @ 22.98 mls/hr 03/31/17 11:00 03/31/17 10:30 Sodium Chloride IV 14.36 mls/hr TITR SARAH Administration Protocol 8 MCG/KG/MIN Insulin Aspart 1 vial 03/24/17 07:00 03/31/17 06:45 Novolog Vial Sliding Scale - SQ 2 units ACHS SARAH Administration Protocol Pantoprazole Sodium 40 mg 03/18/17 10:00 03/31/17 10:37 Protonix 40mg Ivpb (Pre-Docked) IVPB 40 mg DAILY SARAH Administration Vancomycin HCl 125 mg 03/31/17 12:00 Vancomycin Oral Solution PO Q6HPO [facility] Microbiology 03/23/17 20:40 Blood - Peripheral Venous Blood Culture - Final NO GROWTH AFTER 5 DAYS INCUBATION 03/23/17 21:00 Blood - Peripheral Venous Blood Culture - Final NO GROWTH AFTER 5 DAYS INCUBATION 03/22/17 11:15 Sputum - Endotrachea Suction/Ventilator Gram Stain - Final 03/22/17 11:15 Sputum - Endotrachea Suction/Ventilator Sputum Culture - Final S Aureus 03/17/17 14:59 Blood - Peripheral Venous Blood Culture - Final NO GROWTH AFTER 5 DAYS INCUBATION 03/17/17 14:55 Blood - Peripheral Venous Blood Culture - Final NO GROWTH AFTER 5 DAYS INCUBATION CXR: Unchanged from previous study. ASSESSMENT/PLAN: 76 year old male w/ a significant PMH of diastolic CHF, biventricular pacemaker , COPD, HTN, HLD, Atrial Fibrillation, renal insufficiency, morbid obesity, Prostate CA, Sleep apnea on O2, generalized weakness, glaucoma BIBA from [facility] s/p Cardiac arrest due to V.Fib. Neuro: -sedated, on [facility] ventilation, FiO2 decreased to 40% -vacation sedation, Propofol 5 mcg/KG/MIN stopped CVS: Cardiac arrest: pacemaker interrogation showed Vfib, Hypotension: Dopamine restarted today at rate 8 mcg/kg/min and increased Norepinephrine to 40 mcg/kg/min last night continue ventilatory support f/u ABG daily cont. PO amiodarone 400 mg qd HTN: hold antihypertensives Non ischemic CAD/Non ischemic cardiomyopathy: cont Lipitor Afib: INR supratherapeutic hold coumadin for now Digoxin if HR increases Digoxin level within range HLD: lipitor 80mg HS ID: -WBC elevated to 52 today, no fever -C.Diff. ordered, stool cx ordered -MRSA sputum -Vanco restarted today Pulm: COPD: on home oxygen PRN continue ventilatory support for now broncho dilators Obstructive Sleep Apnea: on vent for now Renal: -hypokalemia replaced -another dialysis today 4.5 L of fluid removed CKD stage 3: at baseline renally dose all medications monitor Cr Endo: Hyperglycemia: A1C 6.4 Insulin sliding scale FEN: keep net negative fluid balance. Director Of Outreach consulted for tube feeds, will continue Glucerna tube feeds PPx: INR supratherapeutic, Protonix Dispo: continue ICU monitor. full code, will do tracheostomy on Problem List - Problems (1) A-fib Code(s): I48.91 - UNSPECIFIED ATRIAL FIBRILLATION Qualifiers: Qualified Code(s): I48.91 - Unspecified atrial fibrillation (2) Acute on chronic diastolic CHF (congestive heart failure) Code(s): I50.33 - ACUTE ON CHRONIC DIASTOLIC (CONGESTIVE) HEART FAILURE (3) Anemia Code(s): D64.9 - ANEMIA, UNSPECIFIED (4) CKD (chronic kidney disease) Code(s): N18.9 - CHRONIC KIDNEY DISEASE, UNSPECIFIED Qualifiers: Qualified Code(s): N18.4 - Chronic kidney disease, stage 4 (severe) (5) Cardiac arrest Code(s): I46.9 - CARDIAC ARREST, CAUSE UNSPECIFIED (6) DVT prophylaxis Code(s): [id number] - (7) HTN (hypertension) Code(s): I10 - ESSENTIAL (PRIMARY) HYPERTENSION (8) Hyperkalemia Code(s): E87.5 - HYPERKALEMIA (9) Hyperlipidemia Code(s): E78.5 - HYPERLIPIDEMIA, UNSPECIFIED (10) 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 hypertension Code(s): I27.2 - OTHER SECONDARY PULMONARY HYPERTENSION (11) Sleep apnea Code(s): G47.30 - SLEEP APNEA, UNSPECIFIED Visit type - Emergency Visit Emergency Visit: Yes ED Registration Date: 03/17/17 Care time: The patient presented to the Emergency Department on the above date and was hospitalized for further evaluation of their emergent condition. - New Patient This patient is new to me today: No - Critical Care Critical Care patient: Yes Total Critical Care Time (in minutes): 50 Critical Care Statement: The care of this patient involved high complexity decision making to prevent further life threatening deterioration of the patient 's condition and/or to evalute & treat vital organ system(s) failure or risk of failure.
--- NOTE | 2017-03-31 14:44 | PN ---
Progress Note, Physician Chief Complaint: Pt's is at bedside; pt opens eyes to verbal query; shakes his head "no" when asked if he is in pain. History of Present Illness: The patient is a 76 year old black male, with a significant past medical history of diastolic CHF (severely reduced RVEF of uncertain etiology; severely dilated RV on 02/2017 ECHO, per pt's security guard at [facility]), (non- obstructive CAD by 2008 coronary angiogram), [employer] "biventricular pacemaker , COPD, HTN, HLD, Atrial Fibrillation, renal insufficiency, Morbid obesity, Prostate CA, Sleep apnea (on CPAP), generalized weakness (wheelchair-bound), Glaucoma BIBA from [facility], who was brought in to ER s/p Cardiac arrest. As per EMS, the patient was initially seated in PT doing leg exercises when he became unresponsive. Patient was brought back into his room in the NE and chest compressions were initiated by nursing staff. Down time was between 4- 5 minutes. patient was shocked once and ROSC was noted. As per EMS, patient was given 150 mg of Amiodarone in the field and was brought into the ED for further evaluation. Upon arrival to the ED, patients (health care proxy) gave consent to intubate over the telephone. 2:48 PM- 20 mg of Etomidate given through IV 2:49 PM- 150 mg of Succinylcholine given through IV 2:50 PM- Patient intubated with 7.5 ET tube, positioned 24 cm at the lip Pt's says pt is followed closely by [facility] and cardiac groups. I spoke by telephone with pt's security guard, who provided much of the above history. - Current Medication List Current Medications: Active Medications Amiodarone HCl (Cordarone -) 400 mg PO DAILY [facility] Last Admin: 03/31/17 10:37 Dose: 400 mg Atorvastatin Calcium (Lipitor -) 80 mg NGT [facility] Last Admin: 03/30/17 22:26 Dose: 80 mg Chlorhexidine Gluconate (Hibiclens For Decolonization -) 1 applic TP [facility] Last Admin: 03/30/17 22:26 Dose: 1 applic Chlorhexidine Gluconate (Peridex -) 15 ml MM BID [facility] Last Admin: 03/31/17 10:37 Dose: 15 ml Furosemide (Lasix Injection -) 80 mg IVPUSH BID@0600,1400 SARAH Last Admin: 03/31/17 14:25 Dose: 80 mg Heparin Sodium (Porcine) (Heparin -) 1,000 unit IVPUSH PRN PRN PRN Reason: Heparin Last Admin: 03/28/17 10:59 Dose: 1,000 unit Heparin Sodium (Porcine) (Heparin -) 5,000 unit IVPUSH PRN PRN PRN Reason: Heparin Hydrocortisone Sodium Succinate (Solu-Cortef -) 50 mg IVPB Q8H-IV SARAH Last Admin: 03/31/17 10:38 Dose: 50 mg Heparin Sodium (Porcine) 25, (000 unit/ Sodium Chloride) 500 mls @ 20 mls/hr IV TITR SARAH; 1,000 UNIT/HR PRN Reason: Protocol Last Admin: 03/31/17 01:00 Dose: 26 mls/hr Propofol (Diprivan -) 100 mls @ 4.38 mls/hr IVPB TITR SARAH; 5 MCG/KG/MIN PRN Reason: Protocol Last Admin: 03/31/17 13:45 Dose: 8.76 mls/hr Norepinephrine Bitartrate 8, (000 mcg/ Dextrose) 258 mls @ 15.48 mls/hr IV TITR SARAH; 8 MCG/MIN PRN Reason: Protocol Last Titration: 03/31/17 10:57 Dose: 20 mcg/min Dopamine HCl 800,000 mcg/ (Sodium Chloride) 250 mls @ 22.98 mls/hr IV TITR SARAH ; 8 MCG/KG/MIN PRN Reason: Protocol Last Admin: 03/31/17 10:30 Dose: 14.36 mls/hr Insulin Aspart (Novolog Vial Sliding Scale -) 1 vial SQ ACHS SARAH PRN Reason: Protocol Last Admin: 03/31/17 13:43 Dose: 4 units Pantoprazole Sodium (Protonix 40mg Ivpb (Pre-Docked)) 40 mg IVPB DAILY SARAH Last Admin: 03/31/17 10:37 Dose: 40 mg Vancomycin HCl (Vancomycin Oral Solution) 125 mg PO Q6HPO SARAH - Objective Vital Signs: Vital Signs Temperature 99.2 F 03/31/17 14:00 Pulse Rate 99 H 03/31/17 14:00 Respiratory Rate 16 03/31/17 14:00 Blood Pressure 108/60 03/31/17 14:00 O2 Sat by Pulse Oximetry (%) 99 03/31/17 14:21 Constitutional: Yes: Obese, Other Eyes: Yes: WNL HENT: Yes: Other Neck: Yes: Decreased ROM Cardiovascular: Yes: S1 (split), S2 (split) Respiratory: Yes: Diminished Gastrointestinal: Yes: Abdomen, Obese. No: Tenderness Genitourinary: No: Anuria Musculoskeletal: Yes: Joint Swelling, Muscle Weakness Extremities: Yes: Cool Edema: Yes Edema: LLE: 2+, RLE: 2+ Peripheral Pulses WNL: No Peripheral Pulses: Left Doralis Pedis: 1+, Right Dorsalis Pedis: 1+ Integumentary: Yes: Venous Stasis Changes Neurological: Yes: Weakness Psychiatric: Yes: Other Labs: CBC, BMP 03/31/17 05:00 03/31/17 05:00 INR, PTT INR 1.53 (0.82-1.09) H 03/23/17 05:35 Abnormal Lab Results 03/27/17 03/31/17 03/31/17 16:45 05:00 05:00 WBC 52.0 H* D RBC 3.50 L Hgb 8.7 L Hct 28.4 L MCHC 30.7 L RDW 18.4 H Neutrophils % 97.0 H Monocytes % 2.0 L PTT (Actin FS) 53.3 H Sodium Potassium Chloride BUN Creatinine Random Glucose Calcium Magnesium Total Protein Albumin Hepatitis A Ab Total Positive H 03/31/17 03/31/17 05:00 14:30 WBC RBC Hgb Hct MCHC RDW Neutrophils % Monocytes % PTT (Actin FS) Sodium 134 L 132 L Potassium 3.1 L Chloride 93 L 91 L BUN 75 H D 82 H Creatinine 3.2 H 3.4 H Random Glucose 122 H D 171 H D Calcium 7.6 L 7.4 L Magnesium 2.5 H 2.6 H Total Protein 5.6 L Albumin 2.5 L Hepatitis A Ab Total - ....Imaging Chest X-ray: Image Reviewed (no significant change (virtual "white-out" of left hemithorax)) Other: Image Reviewed (telemetry: NSR; ventricular pacing; periods of AV pacing) Problem List - Problems (1) Cardiac arrest Assessment/Plan: Remains intubated (virtual whiteout of left hemithorax remains). Now on PO amiodarone. Restarted dopamine; norepinephrine dose had to be increased to maintain BP; off vasopressin. F/u Is and Os, respiratory response to IV furosemide (dose increased). Maintain K 4-4.5, Mg 2-2.3. Pt's condition was discussed with pt's today. She had spoken with pt's private security guard recently, and wants to go with tracheostomy, but this had to be delayed due to marked leukocytosis and hypotension. Pt has been undergoing hemodialysis, but ultrafiltration held today (hypotension ). Code(s): I46.9 - CARDIAC ARREST, CAUSE UNSPECIFIED (2) Acute on chronic diastolic CHF (congestive heart failure) Assessment/Plan: see under "cardiac arrest'. Code(s): I50.33 - ACUTE ON CHRONIC DIASTOLIC (CONGESTIVE) HEART FAILURE (3) Hyperlipidemia Assessment/Plan: high-dose statin. Code(s): E78.5 - HYPERLIPIDEMIA, UNSPECIFIED (4) Sleep apnea Code(s): G47.30 - SLEEP APNEA, UNSPECIFIED (5) HTN (hypertension) Code(s): I10 - ESSENTIAL (PRIMARY) HYPERTENSION (6) 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 hypertension Assessment/Plan: Hx COPD; severe RV failure. White-out of left lung. F/u Is and Os. Intubated. F/u with [employer] security consultant. Code(s): I27.2 - OTHER SECONDARY PULMONARY HYPERTENSION (7) Hyperkalemia Assessment/Plan: f/u electrolytes closely (K, Mg, and PO4 initially elevated); hemodialysis/UF per [facility]lect[facility] doctor. Code(s): E87.5 - HYPERKALEMIA (8) Anemia Code(s): D64.9 - ANEMIA, UNSPECIFIED (9) Acute on chronic renal failure Code(s): N17.9 - ACUTE KIDNEY FAILURE, UNSPECIFIED N18.9 - CHRONIC KIDNEY DISEASE, UNSPECIFIED
--- NOTE | 2017-03-31 15:33 | PN ---
Teaching Attending Note Name of Resident: Cleve Bourgeois ATTENDING PHYSICIAN STATEMENT I saw and evaluated the patient. I reviewed the resident's note and discussed the case with the resident. I agree with the resident's findings and plan as documented. SUBJECTIVE: Patient is having OBJECTIVE: Vital Signs Temperature 99.2 F 03/31/17 14:00 Pulse Rate 99 H 03/31/17 14:00 Respiratory Rate 16 03/31/17 14:00 Blood Pressure 108/60 03/31/17 14:00 O2 Sat by Pulse Oximetry (%) 99 03/31/17 14:21 CBCD WBC 52.0 K/mm3 (4.0-10.0) H* D 03/31/17 05:00 RBC 3.50 M/mm3 (4.00-5.60) L 03/31/17 05:00 Hgb 8.7 GM/dL (11.7-16.9) L 03/31/17 05:00 Hct 28.4 % (35.4-49) L 03/31/17 05:00 MCV 81.0 fl (80-96) 03/31/17 05:00 MCHC 30.7 g/dl (32.0-35.9) L 03/31/17 05:00 RDW 18.4 % (11.9-15.9) H 03/31/17 05:00 Plt Count 200 K/MM3 (134-434) 03/31/17 05:00 MPV 9.4 fl (7.5-11.1) 03/31/17 05:00 CMP Sodium 134 mmol/L (136-145) L 03/31/17 05:00 Potassium 3.1 mmol/L (3.5-5.1) L 03/31/17 05:00 Chloride 93 mmol/L (98-107) L 03/31/17 05:00 Carbon Dioxide 25 mmol/L (21-32) 03/31/17 05:00 Anion Gap 16 (8-16) 03/31/17 05:00 BUN 75 mg/dL (7-18) H D 03/31/17 05:00 Creatinine 3.2 mg/dL (0.7-1.3) H 03/31/17 05:00 Creat Clearance w eGFR 18.88 (>60) 03/31/17 05:00 Random Glucose 122 mg/dL (74-106) H D 03/31/17 05:00 Calcium 7.6 mg/dL (8.5-10.1) L 03/31/17 05:00 Total Bilirubin 1.0 mg/dL (0.2-1.0) D 03/31/17 05:00 AST 24 U/L (15-37) D 03/31/17 05:00 ALT 19 U/L (12-78) 03/31/17 05:00 Alkaline Phosphatase 83 U/L (45-117) D 03/31/17 05:00 Total Protein 5.6 g/dl (6.4-8.2) L 03/31/17 05:00 Albumin 2.5 g/dl (3.4-5.0) L 03/31/17 05:00 CARDIAC ENZYMES Creatine Kinase 146 IU/L (39-308) 03/18/17 10:23 Troponin I 0.16 ng/ml (0.00-0.05) H D 03/18/17 10:23 Current Medications Generic Name Dose Route Start Last Admin Trade Name Freq PRN Reason Stop Dose Admin Amiodarone HCl 400 mg 03/26/17 10:00 03/31/17 10:37 Cordarone - PO 400 mg DAILY SARAH Administration Atorvastatin Calcium 80 mg 03/18/17 09:45 03/30/17 22:26 Lipitor - NGT 80 mg HS SARAH Administration Chlorhexidine Gluconate 1 applic 03/17/17 22:00 03/30/17 22:26 Hibiclens For Decolonization - TP 1 applic HS SARAH Administration Chlorhexidine Gluconate 15 ml 03/18/17 22:15 03/31/17 10:37 Peridex - MM 15 ml BID SARAH Administration Furosemide 80 mg 03/30/17 14:00 03/31/17 14:25 Lasix Injection - IVPUSH 80 mg BID@0600,1400 SARAH Administration Heparin Sodium (Porcine) 1,000 unit 03/22/17 08:38 03/28/17 10:59 Heparin - IVPUSH 1,000 unit PRN PRN Administration Heparin Heparin Sodium (Porcine) 5,000 unit 03/22/17 08:38 Heparin - IVPUSH PRN PRN Heparin Hydrocortisone Sodium Succinate 50 mg 03/28/17 10:00 03/31/17 10:38 Solu-Cortef - IVPB 50 mg Q8H-IV SARAH Administration Heparin Sodium (Porcine) 25, 500 mls @ 20 mls/hr 03/22/17 08:45 03/31/17 01:00 000 unit/ Sodium Chloride IV 26 mls/hr TITR SARAH Administration Protocol 1,000 UNIT/HR Propofol 100 mls @ 4.38 mls/hr 03/23/17 12:00 03/31/17 13:45 Diprivan - IVPB 8.76 mls/hr TITR SARAH Administration Protocol 5 MCG/KG/MIN Norepinephrine Bitartrate 8, 258 mls @ 15.48 mls/hr 03/30/17 08:15 03/31/17 10: 57 000 mcg/ Dextrose IV 20 mcg/min TITR SARAH Titration Protocol 8 MCG/MIN Dopamine HCl 800,000 mcg/ 250 mls @ 22.98 mls/hr 03/31/17 11:00 03/31/17 10:30 Sodium Chloride IV 14.36 mls/hr TITR SARAH Administration Protocol 8 MCG/KG/MIN Insulin Aspart 1 vial 03/24/17 07:00 03/31/17 13:43 Novolog Vial Sliding Scale - SQ 4 units ACHS SARAH Administration Protocol Pantoprazole Sodium 40 mg 03/18/17 10:00 03/31/17 10:37 Protonix 40mg Ivpb (Pre-Docked) IVPB 40 mg DAILY SARAH Administration Vancomycin HCl 125 mg 03/31/17 12:00 Vancomycin Oral Solution PO Q6HPO [facility] Home Medications Medication Instructions Recorded Allopurinol 300 mg PO DAILY 03/17/17 Digoxin [Lanoxin -] 0.125 mg PO DAILY 03/17/17 Docusate Sodium [Colace -] 300 mg PO HS 03/17/17 Ferrous Sulfate 650 mg PO BID 03/17/17 Furosemide [Lasix -] 80 mg PO DAILY 03/17/17 Latanoprost 0.005% Eye Drops 1 drop OU HS 03/17/17 [Xalatan 0.005% Eye Drops -] Metolazone [Zaroxolyn -] 2.5 mg PO AM 03/17/17 Nystatin Cream [Mycostatin] 1 applic TP BID 03/17/17 Polyethylene Glycol 3350 [Miralax 17 gm PO DAILY 03/17/17 (For Daily Use) -] Sennosides [Evac-U-Gen] 2 tab PO DAILY 03/17/17 Simvastatin [Zocor -] 80 mg PO HS 03/17/17 Sod Lactate/Amm Lact/Pot Lact 1 applic TP BID 03/17/17 [Amlactin Ultra Body Cream] Triamcinolone 0.1% Cream 1 applic TP BID 03/17/17 [Aristocort] Warfarin Na [Coumadin -] 7.5 mg PO Q7D 03/17/17 Warfarin Sodium [Coumadin] 5 mg PO ASDIR 03/17/17 Microbiology 03/23/17 20:40 Blood - Peripheral Venous Blood Culture - Final NO GROWTH AFTER 5 DAYS INCUBATION 03/23/17 21:00 Blood - Peripheral Venous Blood Culture - Final NO GROWTH AFTER 5 DAYS INCUBATION 03/22/17 11:15 Sputum - Endotrachea Suction/Ventilator Gram Stain - Final 03/22/17 11:15 Sputum - Endotrachea Suction/Ventilator Sputum Culture - Final S Aureus 03/17/17 14:59 Blood - Peripheral Venous Blood Culture - Final NO GROWTH AFTER 5 DAYS INCUBATION 03/17/17 14:55 Blood - Peripheral Venous Blood Culture - Final NO GROWTH AFTER 5 DAYS INCUBATION ASSESSMENT AND PLAN: 76 y/o man with h/o Severe cardiomypathy( non ischemic ) ,with severely reduced EF, and PULm HTN, Diastolic dysfunction , A fib on AC, who presented with cardiac arrest (V fib ) from his halfway #Acute marked leukocytosis , possible C difficile ID on the case ,repeat blood c /s Stool C difficile, On vanco via NGT # Acute hypoxic respiratory failure s/p Intubation unable to wean him off. On pressers Dopamine and Levophed ; titrate as needed, hydrocortisone, keep MAP > 65 .Due to having almost complete left opacification of left lung. Patient on dialysis continue as per . Off Lasix drip on Lasix 80mg IV BID. For trach as per ICU # S/P cardiac arrest s/p hypothermic protocol: due to severe Right sided cardiomyopathy ,with Severe non-ischemic cardiomypoathy, patient has a defibrillator ,was interrogated on admission .On levophed ggt and dopamine drip ; for BP support to continue, cont Amio.400 mg po daily started on 03/26 # Acute on Chronic renal insufficiency with volume overload (non-oliguric), on dialysis , will continue HD as per nephro. # Acute hypokalemia repleted # sputum with MRSA s/p Vancomycin # Acute on chronic systolic and diastolic heart failure off lasix gtt. on IV LAsix now # A fib: rate is controlled on heparin drip continue DVT px :on heparin drip Possible trach.in am
--- NOTE | 2017-03-31 16:00 | PN ---
Physical Exam: SUBJECTIVE: Patient seen and examined at bedside. Hypotensive overnight. Increased Levophed overnight. Remains intubated and sedated. OBJECTIVE: Vital Signs Period Temp Pulse Resp BP Sys/Krishnan Pulse Ox Last 24 Hr 98.6 F-99.2 F 70-106 10-28 68-115/42-75 91-100 GENERAL: intubated and sedated HEAD: Normal with no signs of trauma. EYES: pupils reactive to light ENT: ET tube in place NECK: supple., (+) JVD LUNGS: Diminished breath sounds bilat. , bibasilar rales and scattered rhonchi. HEART: RRR, S1, S2 w/o murmur, rub or gallop. ABDOMEN: Obese, hypoactive BS, edema of abdominal wall. Rectal tube in place and draining. EXTREMITIES: improved 2+ pittiing edema up to abdomen . Chronic changes of lower ext. NEUROLOGICAL: Sedated but opens eyes on command. Moves upper extremities to verbal command. SKIN: Warm, dry, thickened skin on bilat. LE Laboratory Results - last 24 hr 03/27/17 03/30/17 03/30/17 16:45 17:44 23:27 WBC RBC Hgb Hct MCV MCHC RDW Plt Count MPV Neutrophils % Lymphocytes % Monocytes % Metamyelocytes Differential Comment Toxic Granulation Platelet Estimate PTT (Actin FS) Sodium Potassium Chloride Carbon Dioxide Anion Gap BUN Creatinine Creat Clearance w eGFR POC Glucometer [phone] Random Glucose Lactic Acid Calcium Phosphorus Magnesium Total Bilirubin AST ALT Alkaline Phosphatase Total Protein Albumin Hep A IgM Ab Confirm Negative Hepatitis A Ab Total Positive H Hep Bs Antigen Negative Hep Bs Antibody Non reactive Hep B Core Total Ab Negative 03/31/17 03/31/17 03/31/17 05:00 05:00 05:00 WBC 52.0 H* D RBC 3.50 L Hgb 8.7 L Hct 28.4 L MCV 81.0 MCHC 30.7 L RDW 18.4 H Plt Count 200 MPV 9.4 Neutrophils % 97.0 H Lymphocytes % Y Monocytes % 2.0 L Metamyelocytes 1 Differential Comment Manual diff done Toxic Granulation 2+ Platelet Estimate Adequate PTT (Actin FS) 53.3 H Sodium 134 L Potassium 3.1 L Chloride 93 L Carbon Dioxide 25 Anion Gap 16 BUN 75 H D Creatinine 3.2 H Creat Clearance w eGFR 18.88 POC Glucometer Random Glucose 122 H D Lactic Acid Calcium 7.6 L Phosphorus 2.9 D Magnesium 2.5 H Total Bilirubin 1.0 D AST 24 D ALT 19 Alkaline Phosphatase 83 D Total Protein 5.6 L Albumin 2.5 L Hep A IgM Ab Confirm Hepatitis A Ab Total Hep Bs Antigen Hep Bs Antibody Hep B Core Total Ab 03/31/17 03/31/17 03/31/17 05:26 13:40 14:00 WBC RBC Hgb Hct MCV MCHC RDW Plt Count MPV Neutrophils % Lymphocytes % Monocytes % Metamyelocytes Differential Comment Toxic Granulation Platelet Estimate PTT (Actin FS) Sodium Potassium Chloride Carbon Dioxide Anion Gap BUN Creatinine Creat Clearance w eGFR POC Glucometer [phone] Random Glucose Lactic Acid Calcium Phosphorus 3.7 D Magnesium Total Bilirubin AST ALT Alkaline Phosphatase Total Protein Albumin Hep A IgM Ab Confirm Hepatitis A Ab Total Hep Bs Antigen Hep Bs Antibody Hep B Core Total Ab 03/31/17 14:00 WBC RBC Hgb Hct MCV MCHC RDW Plt Count MPV Neutrophils % Lymphocytes % Monocytes % Metamyelocytes Differential Comment Toxic Granulation Platelet Estimate PTT (Actin FS) Sodium Potassium Chloride Carbon Dioxide Anion Gap BUN Creatinine Creat Clearance w eGFR POC Glucometer Random Glucose Lactic Acid 0.829 Calcium Phosphorus Magnesium Total Bilirubin AST ALT Alkaline Phosphatase Total Protein Albumin Hep A IgM Ab Confirm Hepatitis A Ab Total Hep Bs Antigen Hep Bs Antibody Hep B Core Total Ab Active Medications Generic Name Dose Route Start Last Admin Trade Name Freq PRN Reason Stop Dose Admin Amiodarone HCl 400 mg 03/26/17 10:00 03/31/17 10:37 Cordarone - PO 400 mg DAILY SARAH Administration Atorvastatin Calcium 80 mg 03/18/17 09:45 03/30/17 22:26 Lipitor - NGT 80 mg HS SARAH Administration Chlorhexidine Gluconate 1 applic 03/17/17 22:00 03/30/17 22:26 Hibiclens For Decolonization - TP 1 applic HS SARAH Administration Chlorhexidine Gluconate 15 ml 03/18/17 22:15 03/31/17 10:37 Peridex - MM 15 ml BID SARAH Administration Furosemide 80 mg 03/30/17 14:00 03/31/17 14:25 Lasix Injection - IVPUSH 80 mg BID@0600,1400 SARAH Administration Heparin Sodium (Porcine) 1,000 unit 03/22/17 08:38 03/28/17 10:59 Heparin - IVPUSH 1,000 unit PRN PRN Administration Heparin Heparin Sodium (Porcine) 5,000 unit 03/22/17 08:38 Heparin - IVPUSH PRN PRN Heparin Hydrocortisone Sodium Succinate 50 mg 03/28/17 10:00 03/31/17 10:38 Solu-Cortef - IVPB 50 mg Q8H-IV SARAH Administration Heparin Sodium (Porcine) 25, 500 mls @ 20 mls/hr 03/22/17 08:45 03/31/17 01:00 000 unit/ Sodium Chloride IV 26 mls/hr TITR SARAH Administration Protocol 1,000 UNIT/HR Propofol 100 mls @ 4.38 mls/hr 03/23/17 12:00 03/31/17 13:45 Diprivan - IVPB 8.76 mls/hr TITR SARAH Administration Protocol 5 MCG/KG/MIN Norepinephrine Bitartrate 8, 258 mls @ 15.48 mls/hr 03/30/17 08:15 03/31/17 10: 57 000 mcg/ Dextrose IV 20 mcg/min TITR SARAH Titration Protocol 8 MCG/MIN Dopamine HCl 800,000 mcg/ 250 mls @ 22.98 mls/hr 03/31/17 11:00 03/31/17 10:30 Sodium Chloride IV 14.36 mls/hr TITR SARAH Administration Protocol 8 MCG/KG/MIN Insulin Aspart 1 vial 03/24/17 07:00 03/31/17 13:43 Novolog Vial Sliding Scale - SQ 4 units ACHS SARAH Administration Protocol Pantoprazole Sodium 40 mg 03/18/17 10:00 03/31/17 10:37 Protonix 40mg Ivpb (Pre-Docked) IVPB 40 mg DAILY SARAH Administration Vancomycin HCl 125 mg 03/31/17 12:00 Vancomycin Oral Solution PO Q6HPO SARAH ASSESSMENT/PLAN: 76 y/o M with signifcant PMHx of CHF, HTN, Afib, and pulmonary HTN admitted [facility] s/p cardiac arrest 2/2 vfib admitted to ICU Problem List - Problems (1) Cardiac arrest Assessment/Plan: * Remains intubated and sedated. * hypotensive overnight-->Levophed increased to 40mcg/hr * Trach. scheduled for Thurs. * Maintaining MAP > 65 * Currently:Norepinephrine 40mcg/hr * Amiodarone 400mg PO daily * Continue ICU monitoring. (2) Positive culture findings in sputum Assessment/Plan: * sputum (+) for MRSA * Continue Vancomycin daily with repeat trough * will repeat AM labs. (3) Acute on chronic diastolic CHF (congestive heart failure) Assessment/Plan: * Lasix 80mg BID IVPUSH * monitor I/O's * daily weights. (4) CKD (chronic kidney disease) Assessment/Plan: * No dailysis today. * Stage 4 GFR 23 * will plan additional UF tomorrow. * continue Lasix 80mg IV BID (5) A-fib Assessment/Plan: * Currently paced * followed by EP Dr. Bello will continue Amiodarone. * will hold off on AV blockage due to hypotension * Digoxin held due to renal function. (6) DVT prophylaxis Assessment/Plan: * Heparin GGT * SCD's bilat. Visit type - Emergency Visit Emergency Visit: Yes ED Registration Date: 03/17/17 Care time: The patient presented to the Emergency Department on the above date and was hospitalized for further evaluation of their emergent condition. - New Patient This patient is new to me today: No - Critical Care Critical Care patient: Yes Total Critical Care Time (in minutes): 35 Critical Care Statement: The care of this patient involved high complexity decision making to prevent further life threatening deterioration of the patient 's condition and/or to evalute & treat vital organ system(s) failure or risk of failure.
[2017-03-31 16:56] LABS: CALCIUM 7.4 mg/dL (8.5-10.1); CREATININE 3.4 mg/dL (0.7-1.3); MAGNESIUM 2.6 mg/dL (1.8-2.4)
[2017-03-31] MEDS: VANCOMYCIN 250 MG/5 ML ORAL SOLUTION PO SCH ×2 (17:49→17:54)
[2017-03-31] MEDS ORDERED: HEMOQUE TEST 1 EACH EACH ONE (18:01)
[2017-03-31] MEDS: CHLORHEXIDINE GLUCONATE 4% CLEANSER FOR DECOLONIZATION TP SCH (21:14)
[2017-03-31] MEDS: ATORVASTATIN CA 80 MG TABLET (FP) NGT SCH (21:14)
[2017-04-01] MEDS: VANCOMYCIN 250 MG/5 ML ORAL SOLUTION PO SCH ×4 (00:15→18:29)
[2017-04-01] MEDS: HYDROCORTISONE SOD SUCCINATE 100 MG/2 ML VIAL IVPB SCH ×4 (01:44→18:29)
[2017-04-01] MEDS: BANATROL PLUS POWDER PACKET PO SCH ×3 (05:44→22:49)
[2017-04-01] MEDS: FUROSEMIDE 40 MG/4 ML INJECTABLE VIAL IVPUSH SCH ×2 (05:46→15:58)
[2017-04-01 06:22] LABS: MCH 25.2 pg (25.7-33.7); MCHC 31.4 g/dl (32.0-35.9); MEAN CELL VOLUME 80.3 fl (80-96); MEAN PLT VOLUME 9.6 fl (7.5-11.1); PLATELET COUNT 219 K/MM3 (134-434); RDW 18.8 % (11.9-15.9); WHITE BLOOD COUNT 29.7 K/mm3 (4.0-10.0)
[2017-04-01] MEDS ORDERED: FUROSEMIDE 40 MG/4 ML INJECTABLE VIAL ONE (06:31)
[2017-04-01 06:46] LABS: ALBUMIN 2.5 g/dl (3.4-5.0); BILIRUBIN,TOTAL 0.6 mg/dL (0.2-1.0); CALCIUM 7.6 mg/dL (8.5-10.1); CREATININE 3.5 mg/dL (0.7-1.3); TOT PROT 5.6 g/dl (6.4-8.2)
[2017-04-01] MEDS: INSULIN SLIDING SCALE (NOVOLOG) 1 VIAL SQ SCH ×5 (06:58→23:02)
--- NOTE | 2017-04-01 07:02 | PN ---
Progress Note, Physician Chief Complaint: ID ICU follow up for this 76 year old morbidly obese male admitted originally post cardiac arrest. Currently remains critically ill on a ventilator and on pressor support Levophed with the addition of Dopamine to maintain BP. Requiring dilaysis whcih could not be done yesterday due to hypotension. He is alert and opens his eyes when spoken too. Yesterday he was noted to have WBC of 52,000 Possibility of C diff considered as nurses had noted diarrhea and Dr Campbell started empirically oral vancomycin Today his diarrhea is improved whether or not due to vancomycin and he ramians afebrile albeit on steroids Lastly melanotic stools noted per nursing. - Current Medication List Current Medications: Active Medications Amiodarone HCl (Cordarone -) 400 mg PO DAILY [facility] Last Admin: 03/31/17 10:37 Dose: 400 mg Atorvastatin Calcium (Lipitor -) 80 mg NGT HS [facility] Last Admin: 03/31/17 21:14 Dose: 80 mg Chlorhexidine Gluconate (Hibiclens For Decolonization -) 1 applic TP HS [facility] Last Admin: 03/31/17 21:14 Dose: 1 applic Chlorhexidine Gluconate (Peridex -) 15 ml MM BID SARAH Last Admin: 03/31/17 21:14 Dose: 15 ml Furosemide (Lasix Injection -) 80 mg IVPUSH BID@0600,1400 [facility] Last Admin: 04/01/17 05:46 Dose: 80 mg Heparin Sodium (Porcine) (Heparin -) 1,000 unit IVPUSH PRN PRN PRN Reason: Heparin Last Admin: 03/28/17 10:59 Dose: 1,000 unit Heparin Sodium (Porcine) (Heparin -) 5,000 unit IVPUSH PRN PRN PRN Reason: Heparin Hydrocortisone Sodium Succinate (Solu-Cortef -) 50 mg IVPB Q8H-IV SARAH Last Admin: 04/01/17 01:44 Dose: 50 mg Heparin Sodium (Porcine) 25, (000 unit/ Sodium Chloride) 500 mls @ 20 mls/hr IV TITR SARAH; 1,000 UNIT/HR PRN Reason: Protocol Last Admin: 03/31/17 17:49 Dose: 26 mls/hr Propofol (Diprivan -) 100 mls @ 4.38 mls/hr IVPB TITR SARAH; 5 MCG/KG/MIN PRN Reason: Protocol Last Admin: 03/31/17 13:45 Dose: 8.76 mls/hr Norepinephrine Bitartrate 8, (000 mcg/ Dextrose) 258 mls @ 15.48 mls/hr IV TITR SARAH; 8 MCG/MIN PRN Reason: Protocol Last Admin: 03/31/17 20:59 Dose: 38.7 mls/hr Dopamine HCl 800,000 mcg/ (Sodium Chloride) 250 mls @ 22.98 mls/hr IV TITR SARAH ; 8 MCG/KG/MIN PRN Reason: Protocol Last Admin: 03/31/17 10:30 Dose: 14.36 mls/hr Insulin Aspart (Novolog Vial Sliding Scale -) 1 vial SQ ACHS SARAH PRN Reason: Protocol Last Admin: 03/31/17 22:35 Dose: 4 units Pantoprazole Sodium (Protonix 40mg Ivpb (Pre-Docked)) 40 mg IVPB DAILY [facility] Last Admin: 03/31/17 10:37 Dose: 40 mg Vancomycin HCl (Vancomycin Oral Solution) 125 mg PO Q6HPO [facility] Last Admin: 04/01/17 05:14 Dose: 125 mg - Objective Vital Signs: Vital Signs Temperature 98.3 F 04/01/17 06:00 Pulse Rate 87 04/01/17 06:00 Respiratory Rate 27 H 04/01/17 06:53 Blood Pressure 122/79 04/01/17 06:00 O2 Sat by Pulse Oximetry (%) 99 03/31/17 20:24 Constitutional: Yes: Obese, Other (Intubated Alert) Cardiovascular: Yes: Regular Rate and Rhythm, S1, S2. No: Murmur, Rub Respiratory: Yes: WNL, Regular, CTA Bilaterally, Rhonchi. No: Wheezes Gastrointestinal: Yes: WNL, Normal Bowel Sounds. No: Tenderness, Tenderness, Rebound Edema: Yes Integumentary: Yes: Venous Stasis Changes Labs: INR, PTT INR 1.53 (0.82-1.09) H 03/23/17 05:35 Assessment/Plan Microbiology 03/23/17 21:00 Blood - Peripheral Venous Blood Culture - Final NO GROWTH AFTER 5 DAYS INCUBATION 03/23/17 20:40 Blood - Peripheral Venous Blood Culture - Final NO GROWTH AFTER 5 DAYS INCUBATION Laboratory Tests 03/30/17 03/31/17 04/01/17 05:45 05:00 05:15 WBC 52.0 H* D Pending Hgb 8.7 L Pending Plt Count 200 Pending BUN Creatinine Creat Clearance w eGFR Random Glucose Total Bilirubin AST ALT Alkaline Phosphatase Albumin Random Vancomycin 23.186 04/01/17 05:15 WBC Hgb Plt Count BUN 89 H Creatinine 3.5 H Creat Clearance w eGFR 17.02 Random Glucose 211 H D Total Bilirubin 0.6 D AST 20 ALT 17 Alkaline Phosphatase 77 Albumin 2.5 L Random Vancomycin Assessment Post cardiac arrest Respiratory failure Congestive heart failure Hypotension ? 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 GI bleeding but must consider sepsis in addition to C diff already considered Recent chest xray wiath opacification of left hemithorax cannot rule out component of pneumonia. Panculture Vancomycin dose 1 gr Add zosyn 2.25grs q8h Oral vancomycin added Stool C diff toxin Await CBC ? GI bleeding 40 minutes critical care time spent today Alba BENITEZ
[2017-04-01] MEDS ORDERED: VANCOMYCIN 1,000 MG in DEXTROSE 5%-WATER - 250 ML IVPB ONE (07:12)
[2017-04-01] MEDS ORDERED: VANCOMYCIN 1 GRAM (PRE-DOCKED) 1,000 MG/250 ML BAG IVPB ONE (07:45)
--- NOTE | 2017-04-01 08:50 | PN ---
Physical Exam: SUBJECTIVE: Patient seen and examined. The pt is still sedated and on ventilation. No overnight events, no fever. OBJECTIVE: Vital Signs Period Temp Pulse Resp BP Sys/Krishnan Pulse Ox Last 24 Hr 98.2 F-99.6 F 72-106 13-28 92-127/47-79 93-99 GENERAL: The patient is sedated, arousable, on mechanical ventilation. HEAD: Normal with no signs of trauma. EYES: Sclera anicteric, conjunctiva clear. ENT: moist mucous membranes. NECK: Trachea midline, full range of motion, supple. LUNGS: Breath sounds equal, coarse breath sounds bilaterally, crackles B/L, no accessory muscle use. HEART: Regular rate and rhythm, S1, S2 without murmur, rub or gallop. ABDOMEN: Obese, soft, nontender, distended, normoactive bowel sounds, no guarding, no rebound, no masses, edema present. EXTREMITIES: 2+ pulses, warm, 2+ edema in LE and abdomen. NEUROLOGICAL: No facial asymmetry, following commands, motor 1/5 in all extremities, gait not observed, sedated. PSYCH: Sedated. Ridley cath, draining. Rectal tube. Dialysis cath inserted 03/27/17. Central line inserted 03/21/17. Laboratory Results - last 24 hr 03/27/17 03/31/17 03/31/17 16:45 05:00 13:40 WBC RBC Hgb Hct MCV MCHC RDW Plt Count MPV Neutrophils % 97.0 H Lymphocytes % Monocytes % 2.0 L Metamyelocytes 1 Differential Comment Manual diff done Toxic Granulation 2+ Platelet Estimate Adequate PTT (Actin FS) Sodium Potassium Chloride Carbon Dioxide Anion Gap BUN Creatinine Creat Clearance w eGFR POC Glucometer [phone] Random Glucose Lactic Acid Calcium Phosphorus Magnesium Total Bilirubin AST ALT Alkaline Phosphatase Total Protein Albumin Stool Occult Blood Hepatitis C Antibody 0.1 03/31/17 03/31/17 03/31/17 14:00 14:00 14:30 WBC RBC Hgb Hct MCV MCHC RDW Plt Count MPV Neutrophils % Lymphocytes % Monocytes % Metamyelocytes Differential Comment Toxic Granulation Platelet Estimate PTT (Actin FS) Sodium 132 L Potassium 3.6 Chloride 91 L Carbon Dioxide 25 Anion Gap 16 BUN 82 H Creatinine 3.4 H Creat Clearance w eGFR POC Glucometer Random Glucose 171 H D Lactic Acid 0.829 Calcium 7.4 L Phosphorus 3.7 D Magnesium 2.6 H Total Bilirubin AST ALT Alkaline Phosphatase Total Protein Albumin Stool Occult Blood Hepatitis C Antibody 03/31/17 03/31/17 03/31/17 18:03 22:00 22:34 WBC RBC Hgb Hct MCV MCHC RDW Plt Count MPV Neutrophils % Lymphocytes % Monocytes % Metamyelocytes Differential Comment Toxic Granulation Platelet Estimate PTT (Actin FS) Sodium Potassium Chloride Carbon Dioxide Anion Gap BUN Creatinine Creat Clearance w eGFR POC Glucometer [phone] Random Glucose Lactic Acid Calcium Phosphorus Magnesium Total Bilirubin AST ALT Alkaline Phosphatase Total Protein Albumin Stool Occult Blood Positive Hepatitis C Antibody 04/01/17 04/01/17 04/01/17 05:15 05:15 05:15 WBC 29.7 H D RBC 3.32 L Hgb 8.4 L Hct 26.7 L MCV 80.3 MCHC 31.4 L RDW 18.8 H Plt Count 219 MPV 9.6 Neutrophils % Y Lymphocytes % Y Monocytes % Metamyelocytes Differential Comment Toxic Granulation Platelet Estimate PTT (Actin FS) 50.5 H Sodium 133 L Potassium 3.8 Chloride 93 L Carbon Dioxide 27 Anion Gap 13 BUN 89 H Creatinine 3.5 H Creat Clearance w eGFR 17.02 POC Glucometer Random Glucose 211 H D Lactic Acid Calcium 7.6 L Phosphorus Magnesium Total Bilirubin 0.6 D AST 20 ALT 17 Alkaline Phosphatase 77 Total Protein 5.6 L Albumin 2.5 L Stool Occult Blood Hepatitis C Antibody 04/01/17 05:41 WBC RBC Hgb Hct MCV MCHC RDW Plt Count MPV Neutrophils % Lymphocytes % Monocytes % Metamyelocytes Differential Comment Toxic Granulation Platelet Estimate PTT (Actin FS) Sodium Potassium Chloride Carbon Dioxide Anion Gap BUN Creatinine Creat Clearance w eGFR POC Glucometer [phone] Random Glucose Lactic Acid Calcium Phosphorus Magnesium Total Bilirubin AST ALT Alkaline Phosphatase Total Protein Albumin Stool Occult Blood Hepatitis C Antibody Active Medications Generic Name Dose Route Start Last Admin Trade Name Freq PRN Reason Stop Dose Admin Amiodarone HCl 400 mg 03/26/17 10:00 03/31/17 10:37 Cordarone - PO 400 mg DAILY SARAH Administration Atorvastatin Calcium 80 mg 03/18/17 09:45 03/31/17 21:14 Lipitor - NGT 80 mg HS SARHA Administration Chlorhexidine Gluconate 1 applic 03/17/17 22:00 03/31/17 21:14 Hibiclens For Decolonization - TP 1 applic HS SARAH Administration Chlorhexidine Gluconate 15 ml 03/18/17 22:15 03/31/17 21:14 Peridex - MM 15 ml BID SARAH Administration Furosemide 80 mg 03/30/17 14:00 04/01/17 05:46 Lasix Injection - IVPUSH 80 mg BID@0600,1400 SAARH Administration Heparin Sodium (Porcine) 1,000 unit 03/22/17 08:38 03/28/17 10:59 Heparin - IVPUSH 1,000 unit PRN PRN Administration Heparin Heparin Sodium (Porcine) 5,000 unit 03/22/17 08:38 Heparin - IVPUSH PRN PRN Heparin Hydrocortisone Sodium Succinate 50 mg 03/28/17 10:00 04/01/17 01:44 Solu-Cortef - IVPB 50 mg Q8H-IV SARAH Administration Heparin Sodium (Porcine) 25, 500 mls @ 20 mls/hr 03/22/17 08:45 03/31/17 17:49 000 unit/ Sodium Chloride IV 26 mls/hr TITR SARAH Administration Protocol 1,000 UNIT/HR Propofol 100 mls @ 4.38 mls/hr 03/23/17 12:00 03/31/17 13:45 Diprivan - IVPB 8.76 mls/hr TITR SARAH Administration Protocol 5 MCG/KG/MIN Norepinephrine Bitartrate 8, 258 mls @ 15.48 mls/hr 03/30/17 08:15 03/31/17 20: 59 000 mcg/ Dextrose IV 38.7 mls/hr TITR SARAH Administration Protocol 8 MCG/MIN Dopamine HCl 800,000 mcg/ 250 mls @ 22.98 mls/hr 03/31/17 11:00 03/31/17 10:30 Sodium Chloride IV 14.36 mls/hr TITR SARAH Administration Protocol 8 MCG/KG/MIN Insulin Aspart 1 vial 03/24/17 07:00 04/01/17 06:58 Novolog Vial Sliding Scale - SQ 4 units ACHS SARAH Administration Protocol Pantoprazole Sodium 40 mg 03/18/17 10:00 03/31/17 10:37 Protonix 40mg Ivpb (Pre-Docked) IVPB 40 mg DAILY SARAH Administration Piperacillin Sod/Tazobactam Sod 2.25 gm 04/01/17 10:00 Zosyn 2.25gm Ivpb (Pre-Docked) IVPB Q8H-IV SARAH Vancomycin HCl 125 mg 03/31/17 12:00 04/01/17 05:14 Vancomycin Oral Solution PO 125 mg Q6HPO SARAH Administration CXR: Unchanged from previous study. ASSESSMENT/PLAN: 76 year old male w/ a significant PMH of diastolic CHF, biventricular pacemaker , COPD, HTN, HLD, Atrial Fibrillation, renal insufficiency, morbid obesity, Prostate CA, Sleep apnea on O2, generalized weakness, glaucoma BIBA from [facility] s/p Cardiac arrest due to V.Fib. Neuro: -sedated, on [facility] ventilation, FiO2 decreased to 40% -vacation sedation, Propofol 5 mcg/KG/MIN CVS: Cardiac arrest: pacemaker interrogation showed Vfib, Hypotension: Dopamine at rate 5 mcg/kg/min and cont. Norepinephrine to 20 mcg/kg /min continue ventilatory support cont. PO amiodarone 400 mg qd HTN: hold antihypertensives Non ischemic CAD/Non ischemic cardiomyopathy: cont Lipitor Afib: INR supratherapeutic hold coumadin for now Digoxin if HR increases Digoxin level within range HLD: lipitor 80mg HS ID: -WBC decreased today to 29, no fever -C.Diff. ordered, stool cx is pending -MRSA sputum -cont Vanco and Zosyn Pulm: COPD: on home oxygen PRN continue ventilatory support for now broncho dilators Obstructive Sleep Apnea: on vent for now Renal: -hypokalemia resolved -dialysis was not done yesterday due to pt's hypotension CKD stage 3: at baseline renally dose all medications monitor Cr Endo: Hyperglycemia: A1C 6.4 Insulin sliding scale FEN: keep net negative fluid balance. Auger Supervisor consulted for tube feeds, will continue Glucerna tube feeds PPx: INR supratherapeutic, Protonix Dispo: continue ICU monitor. full code, will do dialysis today and tracheostomy tomorrow Problem List - Problems (1) A-fib Code(s): I48.91 - UNSPECIFIED ATRIAL FIBRILLATION Qualifiers: Qualified Code(s): I48.91 - Unspecified atrial fibrillation (2) Acute on chronic diastolic CHF (congestive heart failure) Code(s): I50.33 - ACUTE ON CHRONIC DIASTOLIC (CONGESTIVE) HEART FAILURE (3) Anemia Code(s): D64.9 - ANEMIA, UNSPECIFIED (4) CKD (chronic kidney disease) Code(s): N18.9 - CHRONIC KIDNEY DISEASE, UNSPECIFIED Qualifiers: Qualified Code(s): N18.4 - Chronic kidney disease, stage 4 (severe) (5) Cardiac arrest Code(s): I46.9 - CARDIAC ARREST, CAUSE UNSPECIFIED (6) DVT prophylaxis Code(s): VIH3842 - (7) HTN (hypertension) Code(s): I10 - ESSENTIAL (PRIMARY) HYPERTENSION (8) Hyperkalemia Code(s): E87.5 - HYPERKALEMIA (9) Hyperlipidemia Code(s): E78.5 - HYPERLIPIDEMIA, UNSPECIFIED (10) 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 hypertension Code(s): I27.2 - OTHER SECONDARY PULMONARY HYPERTENSION (11) Sleep apnea Code(s): G47.30 - SLEEP APNEA, UNSPECIFIED Visit type - Emergency Visit Emergency Visit: Yes ED Registration Date: 03/17/17 Care time: The patient presented to the Emergency Department on the above date and was hospitalized for further evaluation of their emergent condition. - New Patient This patient is new to me today: No - Critical Care Critical Care patient: Yes Total Critical Care Time (in minutes): 45 Critical Care Statement: The care of this patient involved high complexity decision making to prevent further life threatening deterioration of the patient 's condition and/or to evalute & treat vital organ system(s) failure or risk of failure.
[2017-04-01] MEDS ORDERED: NOREPINEPHRINE BITARTRATE 4 MG/4 ML ML IV ONE ×2 (09:25→19:11)
[2017-04-01] MEDS ORDERED: PIPERACILLIN/TAZOB 2.25 GM 2.25 GM in DEXTROSE 5%-WATER - 50 ML IVPB SCH (10:00)
--- NOTE | 2017-04-01 10:19 | PN ---
Progress Note, Physician History of Present Illness: The patient is a 76 year old black male, with a significant past medical history of diastolic CHF (severely reduced RVEF of uncertain etiology; severely dilated RV on 02/2017 ECHO, per pt's materials management manager at [facility]), (non- obstructive CAD by 2008 coronary angiogram), [employer] "biventricular pacemaker , COPD, HTN, HLD, Atrial Fibrillation, renal insufficiency, Morbid obesity, Prostate CA, Sleep apnea on O2, generalzied weakness (wheelchair-bound), Glaucoma BIBA from [facility] s/p Cardiac arrest. As per EMS, the patient was initially seated in PT doing leg exercises when he became unresponsive. Patient was brought back into his room in the MS and chest compressions were initiated by nursing staff. Down time was between 4-5 minutes. patient was shocked once and ROSC was noted. As per EMS, patient was given 150 mg of Amiodarone in the field and was brought into the ED for further evaluation. Upon arrival to the ED, patients (health care proxy) gave consent to intubate over the telephone. 2:48 PM- 20 mg of Etomidate given through IV 2:49 PM- 150 mg of Succinylcholine given through IV 2:50 PM- Patient intubated with 7.5 ET tube, positioned 24 cm at the lip Pt's says pt is followed closely by [facility] and cardiac groups. I spoke by telephone with pt's materials management manager, who provided much of the above history. - Current Medication List Current Medications: Active Medications Amiodarone HCl (Cordarone -) 400 mg PO DAILY [facility] Last Admin: 03/31/17 10:37 Dose: 400 mg Atorvastatin Calcium (Lipitor -) 80 mg NGT HS [facility] Last Admin: 03/31/17 21:14 Dose: 80 mg Chlorhexidine Gluconate (Hibiclens For Decolonization -) 1 applic TP [facility] Last Admin: 03/31/17 21:14 Dose: 1 applic Chlorhexidine Gluconate (Peridex -) 15 ml MM BID [facility] Last Admin: 03/31/17 21:14 Dose: 15 ml Furosemide (Lasix Injection -) 80 mg IVPUSH BID@0600,1400 [facility] Last Admin: 04/01/17 05:46 Dose: 80 mg Heparin Sodium (Porcine) (Heparin -) 1,000 unit IVPUSH PRN PRN PRN Reason: Heparin Last Admin: 03/28/17 10:59 Dose: 1,000 unit Heparin Sodium (Porcine) (Heparin -) 5,000 unit IVPUSH PRN PRN PRN Reason: Heparin Hydrocortisone Sodium Succinate (Solu-Cortef -) 50 mg IVPB Q8H-IV [facility] Last Admin: 04/01/17 01:44 Dose: 50 mg Heparin Sodium (Porcine) 25, (000 unit/ Sodium Chloride) 500 mls @ 20 mls/hr IV TITR SARAH; 1,000 UNIT/HR PRN Reason: Protocol Last Admin: 03/31/17 17:49 Dose: 26 mls/hr Propofol (Diprivan -) 100 mls @ 4.38 mls/hr IVPB TITR SARAH; 5 MCG/KG/MIN PRN Reason: Protocol Last Admin: 03/31/17 13:45 Dose: 8.76 mls/hr Norepinephrine Bitartrate 8, (000 mcg/ Dextrose) 258 mls @ 15.48 mls/hr IV TITR SARAH; 8 MCG/MIN PRN Reason: Protocol Last Admin: 03/31/17 20:59 Dose: 38.7 mls/hr Dopamine HCl 800,000 mcg/ (Sodium Chloride) 250 mls @ 22.98 mls/hr IV TITR SARAH ; 8 MCG/KG/MIN PRN Reason: Protocol Last Admin: 03/31/17 10:30 Dose: 14.36 mls/hr Insulin Aspart (Novolog Vial Sliding Scale -) 1 vial SQ ACHS SARAH PRN Reason: Protocol Last Admin: 04/01/17 06:58 Dose: 4 units Pantoprazole Sodium (Protonix 40mg Ivpb (Pre-Docked)) 40 mg IVPB DAILY [facility] Last Admin: 03/31/17 10:37 Dose: 40 mg Piperacillin Sod/Tazobactam Sod (Zosyn 2.25gm Ivpb (Pre-Docked)) 2.25 gm IVPB Q8H-IV [facility] Vancomycin HCl (Vancomycin Oral Solution) 125 mg PO Q6HPO [facility] Last Admin: 04/01/17 05:14 Dose: 125 mg - Objective Vital Signs: Vital Signs Temperature 98.2 F 04/01/17 10:00 Pulse Rate 74 04/01/17 10:00 Respiratory Rate 14 04/01/17 10:00 Blood Pressure 119/63 04/01/17 10:00 O2 Sat by Pulse Oximetry (%) 100 04/01/17 08:47 Eyes: Yes: WNL, Conjunctiva Clear, EOM Intact HENT: Yes: WNL, Atraumatic, Normocephalic Neck: Yes: WNL, Supple, Trachea Midline Cardiovascular: Yes: WNL, Regular Rate and Rhythm Respiratory: Yes: Intubated, Mechanically Ventilated Gastrointestinal: Yes: WNL, Normal Bowel Sounds Genitourinary: Yes: WNL Musculoskeletal: Yes: WNL Extremities: Yes: WNL Edema: No Integumentary: Yes: WNL Neurological: Yes: WNL, Alert, Oriented ...Motor Strength: WNL Psychiatric: Yes: WNL Labs: CBC, BMP 04/01/17 05:15 04/01/17 05:15 INR, PTT INR 1.53 (0.82-1.09) H 03/23/17 05:35 Assessment/Plan 1) Cardiac arrest Assessment/Plan: Remains intubated (virtual whiteout of left hemithorax remains). Now on PO amiodarone. Restarted dopamine; norepinephrine dose had to be increased to maintain BP; off vasopressin. F/u Is and Os, respiratory response to IV furosemide (dose increased). Maintain K 4-4.5, Mg 2-2.3. Tracheostomy, had to be delayed due to marked leukocytosis and hypotension. Pt has been undergoing hemodialysis, but ultrafiltration held today (hypotension ). Code(s): I46.9 - CARDIAC ARREST, CAUSE UNSPECIFIED (2) Acute on chronic diastolic CHF (congestive heart failure) Assessment/Plan: see under "cardiac arrest'. Code(s): I50.33 - ACUTE ON CHRONIC DIASTOLIC (CONGESTIVE) HEART FAILURE (3) Hyperlipidemia Assessment/Plan: high-dose statin. Code(s): E78.5 - HYPERLIPIDEMIA, UNSPECIFIED (4) Sleep apnea Code(s): G47.30 - SLEEP APNEA, UNSPECIFIED (5) HTN (hypertension) Code(s): I10 - ESSENTIAL (PRIMARY) HYPERTENSION (6) 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 hypertension Assessment/Plan: Hx COPD; severe RV failure. White-out of left lung. F/u Is and Os. Intubated. F/u with bread distributor. Code(s): I27.2 - OTHER SECONDARY PULMONARY HYPERTENSION (7) Hyperkalemia Assessment/Plan: f/u electrolytes closely (K, Mg, and PO4 initially elevated); hemodialysis/UF per chef de froid. Code(s): E87.5 - HYPERKALEMIA (8) Anemia Code(s): D64.9 - ANEMIA, UNSPECIFIED (9) Acute on chronic renal failure Code(s): N17.9 - ACUTE KIDNEY FAILURE, UNSPECIFIED N18.9 - CHRONIC KIDNEY DISEASE, UNSPECIFIED CC time 35 min
--- NOTE | 2017-04-01 10:26 | PN ---
Progress Note (short form) - Note Progress Note: Renal Follow up for SUJATA/Fluid overload Pt seen and examined in the ICU intubated and sedated BP improved, Levophed 10 mcg and dopamine 10 urine output decreased in the last 24 hours, did not get lasix for dialysis today Vital Signs Temperature 98.2 F 04/01/17 10:00 Pulse Rate 74 04/01/17 10:00 Respiratory Rate 14 04/01/17 10:00 Blood Pressure 119/63 04/01/17 10:00 O2 Sat by Pulse Oximetry (%) 100 04/01/17 08:47 Intake & Output 03/29/17 03/30/17 03/31/17 04/01/17 23:59 23:59 23:59 23:59 Intake Total 4601 2316 4020 1876 Output Total 650 450 350 50 Balance 3951 1866 3670 1826 Weight 330 lb 11.094 oz 337 lb 8.443 oz 337 lb 11.971 oz 345 lb 14.484 oz Gen: on Vent, sedated CVS: RRR, No M/R Lungs: DEC BS throughout the lung ortiz, no rales Abd: soft, Obese, ND Ext: 2+ edema in LE, no cyanosis, warm ext : Ridley in place CBC, BMP 04/01/17 05:15 04/01/17 05:15 Laboratory Tests 03/31/17 04/01/17 05:00 05:15 Calcium 7.6 L 7.6 L Phosphorus 2.9 D Magnesium 2.5 H Albumin 2.5 L 2.5 L Current Medications Amiodarone HCl (Cordarone -) 400 mg PO DAILY [facility] Last Admin: 03/31/17 10:37 Dose: 400 mg Atorvastatin Calcium (Lipitor -) 80 mg NGT HS [facility] Last Admin: 03/31/17 21:14 Dose: 80 mg Chlorhexidine Gluconate (Hibiclens For Decolonization -) 1 applic TP HS [facility] Last Admin: 03/31/17 21:14 Dose: 1 applic Chlorhexidine Gluconate (Peridex -) 15 ml MM BID [facility] Last Admin: 03/31/17 21:14 Dose: 15 ml Furosemide (Lasix Injection -) 80 mg IVPUSH BID@0600,1400 [facility] Last Admin: 04/01/17 05:46 Dose: 80 mg Heparin Sodium (Porcine) (Heparin -) 1,000 unit IVPUSH PRN PRN PRN Reason: Heparin Last Admin: 03/28/17 10:59 Dose: 1,000 unit Heparin Sodium (Porcine) (Heparin -) 5,000 unit IVPUSH PRN PRN PRN Reason: Heparin Hydrocortisone Sodium Succinate (Solu-Cortef -) 50 mg IVPB Q8H-IV [facility] Last Admin: 04/01/17 01:44 Dose: 50 mg Heparin Sodium (Porcine) 25, (000 unit/ Sodium Chloride) 500 mls @ 20 mls/hr IV TITR SARAH; 1,000 UNIT/HR PRN Reason: Protocol Last Admin: 03/31/17 17:49 Dose: 26 mls/hr Propofol (Diprivan -) 100 mls @ 4.38 mls/hr IVPB TITR SARAH; 5 MCG/KG/MIN PRN Reason: Protocol Last Admin: 03/31/17 13:45 Dose: 8.76 mls/hr Norepinephrine Bitartrate 8, (000 mcg/ Dextrose) 258 mls @ 15.48 mls/hr IV TITR SARAH; 8 MCG/MIN PRN Reason: Protocol Last Admin: 03/31/17 20:59 Dose: 38.7 mls/hr Dopamine HCl 800,000 mcg/ (Sodium Chloride) 250 mls @ 22.98 mls/hr IV TITR SARAH ; 8 MCG/KG/MIN PRN Reason: Protocol Last Admin: 03/31/17 10:30 Dose: 14.36 mls/hr Insulin Aspart (Novolog Vial Sliding Scale -) 1 vial SQ ACHS SARAH PRN Reason: Protocol Last Admin: 04/01/17 06:58 Dose: 4 units Pantoprazole Sodium (Protonix 40mg Ivpb (Pre-Docked)) 40 mg IVPB DAILY [facility] Last Admin: 03/31/17 10:37 Dose: 40 mg Piperacillin Sod/Tazobactam Sod (Zosyn 2.25gm Ivpb (Pre-Docked)) 2.25 gm IVPB Q8H-IV [facility] Vancomycin HCl (Vancomycin Oral Solution) 125 mg PO Q6HPO [facility] Last Admin: 04/01/17 05:14 Dose: 125 mg A/P 76 year old Gentleman with PMhx of CKD, CHF, Hypertension, Afib, Obesity, Prostate Ca who presented s/p cardiac arrest with SUJATA and Volume overload #Non-Oliguric Acute on Chronic renal insufficiency with volume overload Given improvement in hemodynamic status will plan for dialysis with UF today Will attempt to remove 3.5 to 4L as tolerated Restart Lasix IVP this afternoon if BP stable after dialysis #Hypokalemia Supplament to keep K > 3.5 will use higher potassium bath with dialysis #Shock/Resp Failure Titrate pressers as per ICU Vent support Repeat cultures ID follow up Check C-diff #Anemia Trend CBC, transfuse as per ICU protocol Thank you Garry Drew DO
[2017-04-01] MEDS: PIPERACILLIN/TAZOB 2.25 GM/50 ML PRE-DOCKED BAG IVPB SCH ×2 (10:34→18:30)
[2017-04-01] MEDS: PANTOPRAZOLE SODIUM 40 MG/100 ML PRE-DOCKED IVPB SCH (10:38)
[2017-04-01] MEDS: CHLORHEXIDINE GLUCONATE 0.12% 15ML CUP MM SCH ×2 (10:39→22:51)
[2017-04-01] MEDS: AMIODARONE HCL 200 MG TABLET (FP) PO SCH (10:40)
[2017-04-01] MEDS: NOREPINEPHRINE BITARTRATE IV SCH (11:07)
[2017-04-01] MEDS: WATER IV SCH (11:07)
[2017-04-01] MEDS: DEXTROSE 5% IV SCH (11:07)
--- NOTE | 2017-04-01 12:06 | PN ---
Teaching Attending Note Name of Resident: Fani Allison ATTENDING PHYSICIAN STATEMENT I saw and evaluated the patient. I reviewed the resident's note and discussed the case with the resident. I agree with the resident's findings and plan as documented. SUBJECTIVE: Pt seen and examined in the ICU. Remains intubated, sedated. On levophed and dopamine gtts. No fevers recorded. OBJECTIVE: Last Vital Signs Temp Pulse Resp BP Pulse Ox 98.2 F 72 14 108/71 100 04/01/17 10:00 04/01/17 11:07 04/01/17 10:00 04/01/17 11:07 04/01/17 08:47 Intake & Output 03/29/17 03/30/17 03/31/17 04/01/17 23:59 23:59 23:59 23:59 Intake Total 4601 2316 4020 1876 Output Total 650 450 350 50 Balance 3951 1866 3670 1826 Weight 330 lb 11.094 oz 337 lb 8.443 oz 337 lb 11.971 oz 345 lb 14.484 oz Gen: intubated, sedated Heart: RRR Lung: scattered rhonchi Abd: soft, nontender Ext: + edema CBC, BMP 04/01/17 05:15 04/01/17 05:15 Active Medications Amiodarone HCl (Cordarone -) 400 mg PO DAILY [facility] Last Admin: 04/01/17 10:40 Dose: 400 mg Atorvastatin Calcium (Lipitor -) 80 mg NGT HS [facility] Last Admin: 03/31/17 21:14 Dose: 80 mg Chlorhexidine Gluconate (Hibiclens For Decolonization -) 1 applic TP HS [facility] Last Admin: 03/31/17 21:14 Dose: 1 applic Chlorhexidine Gluconate (Peridex -) 15 ml MM BID [facility] Last Admin: 04/01/17 10:39 Dose: 15 ml Furosemide (Lasix Injection -) 80 mg IVPUSH BID@0600,1400 [facility] Last Admin: 04/01/17 05:46 Dose: 80 mg Heparin Sodium (Porcine) (Heparin -) 1,000 unit IVPUSH PRN PRN PRN Reason: Heparin Last Admin: 03/28/17 10:59 Dose: 1,000 unit Heparin Sodium (Porcine) (Heparin -) 5,000 unit IVPUSH PRN PRN PRN Reason: Heparin Hydrocortisone Sodium Succinate (Solu-Cortef -) 50 mg IVPB Q8H-IV [facility] Last Admin: 04/01/17 10:41 Dose: 50 mg Heparin Sodium (Porcine) 25, (000 unit/ Sodium Chloride) 500 mls @ 20 mls/hr IV TITR SARAH; 1,000 UNIT/HR PRN Reason: Protocol Last Admin: 03/31/17 17:49 Dose: 26 mls/hr Propofol (Diprivan -) 100 mls @ 4.38 mls/hr IVPB TITR SARAH; 5 MCG/KG/MIN PRN Reason: Protocol Last Admin: 03/31/17 13:45 Dose: 8.76 mls/hr Norepinephrine Bitartrate 8, (000 mcg/ Dextrose) 258 mls @ 15.48 mls/hr IV TITR SARAH; 8 MCG/MIN PRN Reason: Protocol Last Admin: 04/01/17 11:07 Dose: 38.7 mls/hr Dopamine HCl 800,000 mcg/ (Sodium Chloride) 250 mls @ 22.98 mls/hr IV TITR SARAH ; 8 MCG/KG/MIN PRN Reason: Protocol Last Admin: 03/31/17 10:30 Dose: 14.36 mls/hr Insulin Aspart (Novolog Vial Sliding Scale -) 1 vial SQ ACHS SARAH PRN Reason: Protocol Last Admin: 04/01/17 11:33 Dose: 6 units Pantoprazole Sodium (Protonix 40mg Ivpb (Pre-Docked)) 40 mg IVPB DAILY [facility] Last Admin: 04/01/17 10:38 Dose: 40 mg Piperacillin Sod/Tazobactam Sod (Zosyn 2.25gm Ivpb (Pre-Docked)) 2.25 gm IVPB Q8H-IV [facility] Last Admin: 04/01/17 10:34 Dose: 2.25 gm Vancomycin HCl (Vancomycin Oral Solution) 125 mg PO Q6HPO [facility] Last Admin: 04/01/17 11:34 Dose: 125 mg ASSESSMENT AND PLAN: s/p Vfib Cardiac Arrest Acute on Chronic Hypoxic Respiratory Failure Acute on Chronic Diastolic Heart Failure Severe Pulmonary HTN s/p BiV PPM CAD +Troponins Atrial Fibrillation HTN CKD Hyperlipidemia DM COPD Morbid Obesity Obstructive Sleep Apnea - f/u cultures - stool for C diff - keep K>4, Mg>2 - continue amiodarone - continue anticoagulation - taper off hydrocortisone - lasix changed to boluses - titrate levophed, dopamine gtts to maintain MAP >65 - monitor urine output, creatinine - HD per renal - poor visualization of left hemithorax on bedside ultrasound, will need CT chest when more stable - taper FiO2 to keep SpO2 >90% - daily sedation vacations to assess mental status - spontaneous breathing trials as tolerated - enteral feeds - DVT/GI prophylaxis - continue ICU monitoring - will likely need tracheostomy, scheduled for 04/02 critical care time spent in reviewing chart, evaluating patient and formulating plan 40 min
--- NOTE | 2017-04-01 14:48 | PN ---
Physical Exam: SUBJECTIVE: Patient seen and examined OBJECTIVE: Vital Signs Period Temp Pulse Resp BP Sys/Krishnan Pulse Ox Last 24 Hr 38.2 F-99.6 F 63-103 13-27 86-127/51-79 96-100 GENERAL: The patient is awake, alert, and fully oriented, in no acute distress. HEAD: Normal with no signs of trauma. EYES: PERRL, extraocular movements intact, sclera anicteric, conjunctiva clear. No ptosis. ENT: Ears normal, nares patent, oropharynx clear without exudates, moist mucous membranes. NECK: Trachea midline, full range of motion, supple. LUNGS: Breath sounds equal, clear to auscultation bilaterally, no wheezes, no crackles, no accessory muscle use. HEART: Regular rate and rhythm, S1, S2 without murmur, rub or gallop. ABDOMEN: Soft, nontender, nondistended, normoactive bowel sounds, no guarding, no rebound, no hepatosplenomegaly, no masses. EXTREMITIES: 2+ pulses, warm, well-perfused, no edema. NEUROLOGICAL: Cranial nerves II through XII grossly intact. Normal speech, gait not observed. PSYCH: Normal mood, normal affect. SKIN: Warm, dry, normal turgor, no rashes or lesions noted Laboratory Results - last 24 hr 03/27/17 03/31/17 03/31/17 16:45 14:00 14:00 WBC RBC Hgb Hct MCV MCHC RDW Plt Count MPV Neutrophils % Lymphocytes % PTT (Actin FS) Sodium Potassium Chloride Carbon Dioxide Anion Gap BUN Creatinine Creat Clearance w eGFR POC Glucometer Random Glucose Lactic Acid 0.829 Calcium Phosphorus 3.7 D Magnesium Total Bilirubin AST ALT Alkaline Phosphatase Total Protein Albumin Stool Occult Blood Random Vancomycin Hepatitis C Antibody 0.1 03/31/17 03/31/17 03/31/17 14:30 18:03 22:00 WBC RBC Hgb Hct MCV MCHC RDW Plt Count MPV Neutrophils % Lymphocytes % PTT (Actin FS) Sodium 132 L Potassium 3.6 Chloride 91 L Carbon Dioxide 25 Anion Gap 16 BUN 82 H Creatinine 3.4 H Creat Clearance w eGFR POC Glucometer [phone] Random Glucose 171 H D Lactic Acid Calcium 7.4 L Phosphorus Magnesium 2.6 H Total Bilirubin AST ALT Alkaline Phosphatase Total Protein Albumin Stool Occult Blood Positive Random Vancomycin Hepatitis C Antibody 03/31/17 04/01/17 04/01/17 22:34 05:15 05:15 WBC 29.7 H D RBC 3.32 L Hgb 8.4 L Hct 26.7 L MCV 80.3 MCHC 31.4 L RDW 18.8 H Plt Count 219 MPV 9.6 Neutrophils % Y Lymphocytes % Y PTT (Actin FS) Sodium 133 L Potassium 3.8 Chloride 93 L Carbon Dioxide 27 Anion Gap 13 BUN 89 H Creatinine 3.5 H Creat Clearance w eGFR 17.02 POC Glucometer [phone] Random Glucose 211 H D Lactic Acid Calcium 7.6 L Phosphorus Magnesium Total Bilirubin 0.6 D AST 20 ALT 17 Alkaline Phosphatase 77 Total Protein 5.6 L Albumin 2.5 L Stool Occult Blood Random Vancomycin Hepatitis C Antibody 04/01/17 04/01/17 04/01/17 05:15 05:41 12:10 WBC RBC Hgb Hct MCV MCHC RDW Plt Count MPV Neutrophils % Lymphocytes % PTT (Actin FS) 50.5 H Sodium Potassium Chloride Carbon Dioxide Anion Gap BUN Creatinine Creat Clearance w eGFR POC Glucometer [phone] Random Glucose Lactic Acid Calcium Phosphorus Magnesium Total Bilirubin AST ALT Alkaline Phosphatase Total Protein Albumin Stool Occult Blood Random Vancomycin 13.367 Hepatitis C Antibody Active Medications Generic Name Dose Route Start Last Admin Trade Name Freq PRN Reason Stop Dose Admin Amiodarone HCl 400 mg 03/26/17 10:00 04/01/17 10:40 Cordarone - PO 400 mg DAILY [facility]AH Administration Atorvastatin Calcium 80 mg 03/18/17 09:45 03/31/17 21:14 Lipitor - NGT 80 mg HS [facility]AH Administration Chlorhexidine Gluconate 1 applic 03/17/17 22:00 03/31/17 21:14 Hibiclens For Decolonization - TP 1 applic HS [facility]AH Administration Chlorhexidine Gluconate 15 ml 03/18/17 22:15 04/01/17 10:39 Peridex - MM 15 ml BID SARAH Administration Furosemide 80 mg 03/30/17 14:00 04/01/17 05:46 Lasix Injection - IVPUSH 80 mg BID@0600,1400 SARAH Administration Heparin Sodium (Porcine) 1,000 unit 03/22/17 08:38 03/28/17 10:59 Heparin - IVPUSH 1,000 unit PRN PRN Administration Heparin Heparin Sodium (Porcine) 5,000 unit 03/22/17 08:38 Heparin - IVPUSH PRN PRN Heparin Hydrocortisone Sodium Succinate 50 mg 03/28/17 10:00 04/01/17 10:41 Solu-Cortef - IVPB 50 mg Q8H-IV SARAH Administration Heparin Sodium (Porcine) 25, 500 mls @ 20 mls/hr 03/22/17 08:45 03/31/17 17:49 000 unit/ Sodium Chloride IV 26 mls/hr TITR SARAH Administration Protocol 1,000 UNIT/HR Propofol 100 mls @ 4.38 mls/hr 03/23/17 12:00 03/31/17 13:45 Diprivan - IVPB 8.76 mls/hr TITR SARAH Administration Protocol 5 MCG/KG/MIN Norepinephrine Bitartrate 8, 258 mls @ 15.48 mls/hr 03/30/17 08:15 04/01/17 11: 07 000 mcg/ Dextrose IV 38.7 mls/hr TITR SARAH Administration Protocol 8 MCG/MIN Dopamine HCl 800,000 mcg/ 250 mls @ 22.98 mls/hr 03/31/17 11:00 03/31/17 10:30 Sodium Chloride IV 14.36 mls/hr TITR SARAH Administration Protocol 8 MCG/KG/MIN Vancomycin HCl 250 mls @ 166.667 mls/hr 04/01/17 16:00 Vancomycin (Pre-Docked) IVPB 04/01/17 17:29 ONCE ONE Protocol Insulin Aspart 1 vial 03/24/17 07:00 04/01/17 11:33 Novolog Vial Sliding Scale - SQ 6 units ACHS SARAH Administration Protocol Pantoprazole Sodium 40 mg 03/18/17 10:00 04/01/17 10:38 Protonix 40mg Ivpb (Pre-Docked) IVPB 40 mg DAILY [facility] Administration Piperacillin Sod/Tazobactam Sod 2.25 gm 04/01/17 10:00 04/01/17 10:34 Zosyn 2.25gm Ivpb (Pre-Docked) IVPB 2.25 gm Q8H-IV [facility]AH Administration Vancomycin HCl 125 mg 03/31/17 12:00 04/01/17 11:34 Vancomycin Oral Solution PO 125 mg Q6HPO SARAH Administration ASSESSMENT/PLAN: Problem List - Problems (1) Cardiac arrest Assessment/Plan: * Remains intubated and sedated. * Trach. scheduled for Thurs. * Maintaining MAP > 65 * Amiodarone 400mg PO daily * Continue ICU monitoring. (2) Positive culture findings in sputum Assessment/Plan: * sputum (+) for MRSA * Continue Vancomycin daily with repeat trough * will repeat AM labs. (3) Acute on chronic diastolic CHF (congestive heart failure) Assessment/Plan: * Lasix 80mg BID IVPUSH * monitor I/O's * daily weights. (4) CKD (chronic kidney disease) Assessment/Plan: * Stage 4 GFR 23 * Dialyzed 2.5kg today * continue Lasix 80mg IV BID (5) A-fib Assessment/Plan: * Currently paced * followed by EP Dr. Bello will continue Amiodarone. * AC with heparin ggt * Digoxin held due to renal function. (6) DVT prophylaxis Assessment/Plan: * Heparin GGT * SCD's bilat. Visit type - Emergency Visit Emergency Visit: Yes ED Registration Date: 03/17/17 Care time: The patient presented to the Emergency Department on the above date and was hospitalized for further evaluation of their emergent condition. - New Patient This patient is new to me today: No - Critical Care Critical Care patient: Yes Total Critical Care Time (in minutes): 35 Critical Care Statement: The care of this patient involved high complexity decision making to prevent further life threatening deterioration of the patient 's condition and/or to evalute & treat vital organ system(s) failure or risk of failure. - Discharge Referral Referred to [facility] Med P.C.: No
[2017-04-01] MEDS ORDERED: PT OWN MED DRAWER 7, Y5N ONE (14:53)
[2017-04-01] MEDS ORDERED: DOPAMINE 400 MG/D5W - 250 ML IVPB ONE (14:55)
[2017-04-01 15:33] LABS: PLATELET ESTIMATE ADEQUATE (NORMAL)
[2017-04-01] MEDS: HEPARIN - 25,000 UNIT in SODIUM CHLORIDE 495 ML IV SCH (15:49)
[2017-04-01] MEDS ORDERED: DOPamine HCL 400 MG/10 ML VIAL ONE (15:53)
[2017-04-01] MEDS: DOPAMINE HCL IV SCH (15:56)
[2017-04-01] MEDS: SODIUM CHLORIDE IV SCH (15:56)
--- NOTE | 2017-04-01 15:56 | PN ---
Teaching Attending Note Name of Resident: Cleve Bourgeois ATTENDING PHYSICIAN STATEMENT I saw and evaluated the patient. I reviewed the resident's note and discussed the case with the resident. I agree with the resident's findings and plan as documented. SUBJECTIVE: unable to obtain hx OBJECTIVE: Intubated , sedated, round pupils 2 mm in diameter, no JVD , ET tube in , resists eye opening . opens eye to verbal commands CV: RRR, no MRG Lungs ;rales Tone base Abd : obese,NL BS . abd wall edema 2+ Ext : 2+ pitting edema on LE , Chronic hyperpigmentation and skin thickening. ASSESSMENT AND PLAN: 76 y/o man with h/o Severe cardiomypathy( non ischemic ) ,with severely reduced EF, and PULm HTN, Diastolic dysfunction , A fib on AC, who presented with cardiac arrest (V fib ) from his halfway 1- S/P cardiac arrest: due to severe R sided cardiomyopathy. - cont Levophed for MAP > 65 - cont Amio 400 daily - cont hydrocortisone taper 2- Severe non-ischemic cardiomypoathy, with acute on chronic systolic and diastolic heart failure - managing volume with HD - cont IV lasix - monitor I&Os 2- Acute hypoxic resp failure :due to CHF , Left PNA ( sputum cx with PMRSA ) - cont zosyn. - cont vanco , dose after HD today as level is 13 before HD l - cont Vent support . for tracheostomy tomorrow 4- Coumadin coagulopathy: resolved 5- A fib: rate is controlled , - cont heparin gtt - monitor rate 5-SUJATA on CKD : cont HD . 6- diarrhea . cont empiric po vanco pending C diff toxin DVT px :on AC
[2017-04-01] MEDS ORDERED: VANCOMYCIN 1 GRAM (PRE-DOCKED) 250 ML IVPB ONE (16:00)
[2017-04-01] MEDS: PROPOFOL 100 ML IVPB SCH (16:52)
[2017-04-01] MEDS: CHLORHEXIDINE GLUCONATE 4% CLEANSER FOR DECOLONIZATION TP SCH (22:50)
[2017-04-01] MEDS: ATORVASTATIN CA 80 MG TABLET (FP) NGT SCH (22:51)
[2017-04-02] MEDS: PIPERACILLIN/TAZOB 2.25 GM/50 ML PRE-DOCKED BAG IVPB SCH ×4 (03:30→17:46)
[2017-04-02] MEDS: HYDROCORTISONE SOD SUCCINATE 100 MG/2 ML VIAL IVPB SCH ×2 (03:30→12:52)
[2017-04-02] MEDS: VANCOMYCIN 250 MG/5 ML ORAL SOLUTION PO SCH ×4 (06:00→18:36)
[2017-04-02 06:16] LABS: BASOPHIL 0.3 % (0-2.0); EOSINOPHIL 0.3 % (0-4.5); MCH 25.3 pg (25.7-33.7); MCHC 31.4 g/dl (32.0-35.9); MEAN CELL VOLUME 80.4 fl (80-96); MEAN PLT VOLUME 8.6 fl (7.5-11.1); NEUTROPHILS 91.3 % (42.8-82.8); PLATELET COUNT 194 K/MM3 (134-434); WHITE BLOOD COUNT 17.5 K/mm3 (4.0-10.0)
[2017-04-02] MEDS: FUROSEMIDE 40 MG/4 ML INJECTABLE VIAL IVPUSH SCH ×2 (06:23→18:36)
[2017-04-02 06:28] LABS: INR 1.25 (0.82-1.09); PROTHROMBIN TIME (PATIENT) 13.8 SEC (9.98-11.88)
[2017-04-02] MEDS: BANATROL PLUS POWDER PACKET PO SCH ×3 (06:29→22:02)
[2017-04-02] MEDS: INSULIN SLIDING SCALE (NOVOLOG) 1 VIAL SQ SCH ×4 (06:30→22:05)
[2017-04-02 06:31] LABS: ACTIVATED PTT 27.5 SECONDS (26.9-34.4)
[2017-04-02 06:41] LABS: ALBUMIN 2.4 g/dl (3.4-5.0); BILIRUBIN,TOTAL 0.6 mg/dL (0.2-1.0); CALCIUM 7.6 mg/dL (8.5-10.1); COCKROFT - GAULT 45.82; CREATININE 2.9 mg/dL (0.7-1.3); TOT PROT 5.3 g/dl (6.4-8.2)
--- NOTE | 2017-04-02 07:08 | PN ---
Progress Note, Physician Chief Complaint: ID Overall condition remains without much change Pressor support and intubated Antibiotics presently Oral vancomcyin and Dose of Vanco yesteray along with Zosyn as sepsis considered with WBC of 52K He remains on steroids Need to be tapered - Current Medication List Current Medications: Active Medications Amiodarone HCl (Cordarone -) 400 mg PO DAILY SARAH Last Admin: 04/01/17 10:40 Dose: 400 mg Atorvastatin Calcium (Lipitor -) 80 mg NGT HS SARAH Last Admin: 04/01/17 22:51 Dose: 80 mg Chlorhexidine Gluconate (Hibiclens For Decolonization -) 1 applic TP HS SARAH Last Admin: 04/01/17 22:50 Dose: 1 applic Chlorhexidine Gluconate (Peridex -) 15 ml MM BID SARAH Last Admin: 04/01/17 22:51 Dose: 15 ml Furosemide (Lasix Injection -) 80 mg IVPUSH BID@0600,1400 SARAH Last Admin: 04/02/17 06:23 Dose: 80 mg Heparin Sodium (Porcine) (Heparin -) 1,000 unit IVPUSH PRN PRN PRN Reason: Heparin Last Admin: 03/28/17 10:59 Dose: 1,000 unit Heparin Sodium (Porcine) (Heparin -) 5,000 unit IVPUSH PRN PRN PRN Reason: Heparin Hydrocortisone Sodium Succinate (Solu-Cortef -) 50 mg IVPB Q8H-IV SARAH Last Admin: 04/02/17 03:30 Dose: 50 mg Heparin Sodium (Porcine) 25, (000 unit/ Sodium Chloride) 500 mls @ 20 mls/hr IV TITR SARAH; 1,000 UNIT/HR PRN Reason: Protocol Last Admin: 04/01/17 15:49 Dose: 26 mls/hr Propofol (Diprivan -) 100 mls @ 4.38 mls/hr IVPB TITR SARAH; 5 MCG/KG/MIN PRN Reason: Protocol Last Admin: 04/01/17 16:52 Dose: 10.512 mls/hr Norepinephrine Bitartrate 8, (000 mcg/ Dextrose) 258 mls @ 15.48 mls/hr IV TITR SARAH; 8 MCG/MIN PRN Reason: Protocol Last Admin: 04/01/17 11:07 Dose: 38.7 mls/hr Dopamine HCl 800,000 mcg/ (Sodium Chloride) 250 mls @ 22.98 mls/hr IV TITR SARAH ; 8 MCG/KG/MIN PRN Reason: Protocol Last Admin: 04/01/17 15:56 Dose: 14.4 mls/hr Insulin Aspart (Novolog Vial Sliding Scale -) 1 vial SQ ACHS SARAH PRN Reason: Protocol Last Admin: 04/02/17 06:30 Dose: 4 units Pantoprazole Sodium (Protonix 40mg Ivpb (Pre-Docked)) 40 mg IVPB DAILY [facility] Last Admin: 04/01/17 10:38 Dose: 40 mg Piperacillin Sod/Tazobactam Sod (Zosyn 2.25gm Ivpb (Pre-Docked)) 2.25 gm IVPB Q8H-IV SARAH Last Admin: 04/02/17 03:30 Dose: 2.25 gm Vancomycin HCl (Vancomycin Oral Solution) 125 mg PO Q6HPO SARAH Last Admin: 04/02/17 06:00 Dose: 125 mg - Objective Vital Signs: Vital Signs Temperature 97.8 F 04/02/17 06:00 Pulse Rate 76 04/02/17 06:00 Respiratory Rate 28 H 04/02/17 06:33 Blood Pressure 99/60 04/02/17 06:00 O2 Sat by Pulse Oximetry (%) 100 04/01/17 10:00 HENT: Yes: Other (Et tube) Cardiovascular: Yes: Regular Rate and Rhythm, S1, S2. No: Murmur Respiratory: Yes: WNL, Regular, CTA Bilaterally, Diminished Gastrointestinal: Yes: Soft. No: Tenderness, Tenderness, Rebound Edema: No Labs: CBC, BMP 04/02/17 05:30 INR, PTT INR 1.53 (0.82-1.09) H 03/23/17 05:35 Assessment/Plan Microbiology 03/31/17 16:30 Blood - Peripheral Venous Blood Culture - Preliminary NO GROWTH OBTAINED AFTER 24 HOURS, INCUBATION TO CONTINUE FOR 4 DAYS. 03/31/17 14:00 Blood - Peripheral Venous Blood Culture - Preliminary NO GROWTH OBTAINED AFTER 24 HOURS, INCUBATION TO CONTINUE FOR 4 DAYS. Laboratory Tests 03/31/17 04/01/17 04/01/17 05:00 05:15 12:10 WBC 52.0 H* D 29.7 H D Hgb 8.4 L Hct 26.7 L Plt Count 219 BUN Creatinine Total Bilirubin AST ALT Alkaline Phosphatase Random Vancomycin 13.367 04/02/17 04/02/17 05:30 05:30 WBC Pending Hgb Hct Plt Count BUN 64 H D Creatinine 2.9 H Total Bilirubin 0.6 AST 17 ALT 15 Alkaline Phosphatase 65 Random Vancomycin Assessment S/P cardiac arrest Severe pulmonary hypertension Possible sepsis considered day 1 antibiotics C diff to account for leukomoid reaction ( toxin pending) Respiratory failure Opacifed left hemithorax Acute renal failure MRSA ? colonized vs infection Plan vanco level Await C diff toxin if negative stop GI vanco IF no GNB in cultures can stop Zosyn too Will taper off steroids Dialysis per renal Alba BENITEZ Critical care time spent with patient today Alba BENITEZ
[2017-04-02 08:45] LABS: BASOPHIL 0.4 % (0-2.0); EOSINOPHIL 0.3 % (0-4.5); MCH 25.5 pg (25.7-33.7); MCHC 31.9 g/dl (32.0-35.9); MEAN CELL VOLUME 80.1 fl (80-96); MEAN PLT VOLUME 8.7 fl (7.5-11.1); NEUTROPHILS 92.2 % (42.8-82.8); PLATELET COUNT 179 K/MM3 (134-434); WHITE BLOOD COUNT 17.2 K/mm3 (4.0-10.0)
--- NOTE | 2017-04-02 09:07 | PN ---
Physical Exam: SUBJECTIVE: Patient seen and examined. intubated and sedated. Heparin stopped at 3am in anticipation of trach placement today found to have laceration on 3rd lef5t foot toe ventrally at joint with minimal amount of bleeding which resolved with pressure. OBJECTIVE: Vital Signs Period Temp Pulse Resp BP Sys/Krishnan Pulse Ox Last 24 Hr 38.2 F-98.6 F 63-86 14-28 78-135/51-82 100-100 HEAD: Normal with no signs of trauma. EYES: PERRLA, sclera anicteric, conjunctiva clear. No ptosis. ENT: nares patent, oropharynx with endotracheal tube in place, OG tube, dry mucous membranes. NECK: Trachea midline, full range of motion, supple. right IJ place with blood on dressing. LUNGS: Breath sounds equal, clear to auscultation bilaterally, no wheezes, no crackles, no accessory muscle use. HEART: s1, s2, without murmur, rub or gallop. ABDOMEN: morbidly obese, firm in lateral and lower quadrants due to edema, anasarca, normoactive bowel sounds. EXTREMITIES: pitting edema in extremities, thickened hyperpigmented skin in b/l LE L>R, laceration 4th left toe covered in cdi gauze. 3+ pitting edema b/l LE upto abdomen Ridley catheter in place Laboratory Results - last 24 hr 04/01/17 04/01/17 04/01/17 05:15 11:31 12:10 WBC RBC Hgb Hct MCV MCHC RDW Plt Count MPV Neutrophils % 96.0 H Lymphocytes % 2.0 L D Monocytes % 2.0 L Eosinophils % Basophils % Differential Comment Manual diff done Platelet Estimate Adequate INR PTT (Actin FS) Sodium Potassium Chloride Carbon Dioxide Anion Gap BUN Creatinine Creat Clearance w eGFR POC Glucometer [phone] Random Glucose Calcium Total Bilirubin AST ALT Alkaline Phosphatase Total Protein Albumin Random Vancomycin 13.367 04/01/17 04/01/17 04/02/17 16:41 22:59 05:30 WBC 17.5 H D RBC 2.44 L D Hgb 6.2 L* D Hct 19.6 L D MCV 80.4 MCHC 31.4 L RDW 18.0 H Plt Count 194 MPV 8.6 D Neutrophils % 91.3 H Lymphocytes % 1.8 L Monocytes % 6.3 D Eosinophils % 0.3 D Basophils % 0.3 Differential Comment Platelet Estimate INR PTT (Actin FS) Sodium Potassium Chloride Carbon Dioxide Anion Gap BUN Creatinine Creat Clearance w eGFR POC Glucometer 169.55848 265.87137 Random Glucose Calcium Total Bilirubin AST ALT Alkaline Phosphatase Total Protein Albumin Random Vancomycin 04/02/17 04/02/17 04/02/17 05:30 05:30 06:00 WBC RBC Hgb Hct MCV MCHC RDW Plt Count MPV Neutrophils % Lymphocytes % Monocytes % Eosinophils % Basophils % Differential Comment Platelet Estimate INR 1.25 H PTT (Actin FS) 27.5 D Sodium 139 Potassium 3.7 Chloride 96 L Carbon Dioxide 27 Anion Gap 16 BUN 64 H D Creatinine 2.9 H Creat Clearance w eGFR 21.15 POC Glucometer Random Glucose 143 H D Calcium 7.6 L Total Bilirubin 0.6 AST 17 ALT 15 Alkaline Phosphatase 65 Total Protein 5.3 L Albumin 2.4 L Random Vancomycin 19.652 04/02/17 04/02/17 06:02 07:35 WBC 17.2 H RBC 2.45 L Hgb 6.3 L* Hct 19.6 L MCV 80.1 MCHC 31.9 L RDW 19.0 H Plt Count 179 MPV 8.7 Neutrophils % 92.2 H Lymphocytes % 2.0 L Monocytes % 5.1 Eosinophils % 0.3 Basophils % 0.4 Differential Comment Platelet Estimate INR PTT (Actin FS) Sodium Potassium Chloride Carbon Dioxide Anion Gap BUN Creatinine Creat Clearance w eGFR POC Glucometer 203.27100 Random Glucose Calcium Total Bilirubin AST ALT Alkaline Phosphatase Total Protein Albumin Random Vancomycin Active Medications Generic Name Dose Route Start Last Admin Trade Name Freq PRN Reason Stop Dose Admin Amiodarone HCl 400 mg 03/26/17 10:00 04/01/17 10:40 Cordarone - PO 400 mg DAILY SARAH Administration Atorvastatin Calcium 80 mg 03/18/17 09:45 04/01/17 22:51 Lipitor - NGT 80 mg HS SARAH Administration Chlorhexidine Gluconate 1 applic 03/17/17 22:00 04/01/17 22:50 Hibiclens For Decolonization - TP 1 applic HS SARAH Administration Chlorhexidine Gluconate 15 ml 03/18/17 22:15 04/01/17 22:51 Peridex - MM 15 ml BID SARAH Administration Furosemide 80 mg 03/30/17 14:00 04/02/17 06:23 Lasix Injection - IVPUSH 80 mg BID@0600,1400 SARAH Administration Heparin Sodium (Porcine) 1,000 unit 03/22/17 08:38 03/28/17 10:59 Heparin - IVPUSH 1,000 unit PRN PRN Administration Heparin Heparin Sodium (Porcine) 5,000 unit 03/22/17 08:38 Heparin - IVPUSH PRN PRN Heparin Hydrocortisone Sodium Succinate 50 mg 04/02/17 10:00 Solu-Cortef - IVPB DAILY SARAH Heparin Sodium (Porcine) 25, 500 mls @ 20 mls/hr 03/22/17 08:45 04/01/17 15:49 000 unit/ Sodium Chloride IV 26 mls/hr TITR SARAH Administration Protocol 1,000 UNIT/HR Propofol 100 mls @ 4.38 mls/hr 03/23/17 12:00 04/01/17 16:52 Diprivan - IVPB 10.512 mls/hr TITR SARAH Administration Protocol 5 MCG/KG/MIN Norepinephrine Bitartrate 8, 258 mls @ 15.48 mls/hr 03/30/17 08:15 04/01/17 11: 07 000 mcg/ Dextrose IV 38.7 mls/hr TITR SARAH Administration Protocol 8 MCG/MIN Dopamine HCl 800,000 mcg/ 250 mls @ 22.98 mls/hr 03/31/17 11:00 04/01/17 15:56 Sodium Chloride IV 14.4 mls/hr TITR SARAH Administration Protocol 8 MCG/KG/MIN Insulin Aspart 1 vial 03/24/17 07:00 04/02/17 06:30 Novolog Vial Sliding Scale - SQ 4 units ACHS SARAH Administration Protocol Pantoprazole Sodium 40 mg 03/18/17 10:00 04/01/17 10:38 Protonix 40mg Ivpb (Pre-Docked) IVPB 40 mg DAILY SARAH Administration Piperacillin Sod/Tazobactam Sod 2.25 gm 04/01/17 10:00 04/02/17 03:30 Zosyn 2.25gm Ivpb (Pre-Docked) IVPB 2.25 gm Q8H-IV SARAH Administration Vancomycin HCl 125 mg 03/31/17 12:00 04/02/17 06:00 Vancomycin Oral Solution PO 125 mg Q6HPO SARAH Administration ASSESSMENT/PLAN: 76 yr old man with extensive cardiac and pulmonary history now with renal insufficiency and sepsis s/p cardiac arrest. Pulmonary plan for trach placement with Dr. Benson at bedside today opacification of left lung MRSA in sputum Cardiovascular Hypotensive requiring 2 pressors dopamine 8mcg/hr + norepi 8 mcg/hr attempt to wean amiodarone 400mg po qdaily afib - paced rhythm (biventricular pacemaker) heparin drip for anticoagulation - held hydrocortisone initiated 03/22 for refractory shock following cardiac arrest, slow taper off HLD: lipitor 80mg HS po consult: Dr. Apple Infectious Disease wbc count trending down r/o c.diff; toxin assay pending Vanco 125 mg po q6hr for c.diff, continue until r/o zosyn 2.25gm IVPB q8hr IV consult: Dr. Willis Renal oliguiric renal insufficiency with volume overload, avoid adding additional fluids when possible plan for dialysis post trach with addition transfusion d/t low Hgb/hct Urine output decreased, continue lasix BID 80mg IVpb plan to remove dialysis catheter post dialysis today consult: Hematological low hgb/hct, had bleeding around right IJ catheter which stopped last night with pressure, not bleeding. will check for stool occult to r/o GIB, no other source of bleeding noted transfuse 2 units prbc's GI tube feeding; Glucerna 1.5 protonix daily for prophylaxis banana flakes daily for loose stools Endocrine DM II Glucerna feeds with NISS DVT: heparin drip Diet: tube feeding Visit type - Emergency Visit Emergency Visit: No - New Patient This patient is new to me today: Yes Date on this admission: 04/02/17 - Critical Care Critical Care patient: Yes Total Critical Care Time (in minutes): 40 Critical Care Statement: The care of this patient involved high complexity decision making to prevent further life threatening deterioration of the patient 's condition and/or to evalute & treat vital organ system(s) failure or risk of failure.
[2017-04-02] MEDS ORDERED: VECURONIUM BROMIDE 50 MG VIAL IVPUSH ONE (09:58)
[2017-04-02 10:01] LABS: MICROCYTOSIS 1+
[2017-04-02] MEDS ORDERED: VECURONIUM BROMIDE 10 MG VIAL ONE ×3 (10:05→11:18)
[2017-04-02] MEDS ORDERED: DOPamine HCL 400 MG/10 ML VIAL ONE (10:38)
[2017-04-02] MEDS ORDERED: EPOETIN ALFA 20,000 UNIT/1 ML VIAL SQ ONE (10:45)
--- NOTE | 2017-04-02 12:00 | PN ---
Progress Note (short form) - Note Progress Note: Renal Follow up for SUJATA/Fluid overload Pt seen and examined in the ICU for bedside trach No overnight events on Levophed and dopamine but dosages have been decreased no significant urine output yesterday Vital Signs Temperature 97.5 F L 04/02/17 10:00 Pulse Rate 68 04/02/17 10:00 Respiratory Rate 14 04/02/17 10:00 Blood Pressure 92/58 04/02/17 10:00 O2 Sat by Pulse Oximetry (%) 100 04/02/17 08:36 Intake & Output 03/30/17 03/31/17 04/01/17 04/02/17 23:59 23:59 23:59 23:59 Intake Total 2316 4020 2777 700 Output Total 450 350 50 250 Balance 1866 3670 2727 450 Weight 337 lb 8.443 oz 337 lb 11.971 oz 345 lb 14.484 oz 340 lb 3.2 oz Gen: on Vent, sedated CVS: RRR, No M/R Lungs: DEC BS throughout the lung ortiz, no rales Abd: soft, Obese, ND Ext: 2+ edema in LE, no cyanosis, warm ext : Ridley in place CBC, BMP 04/02/17 07:35 04/02/17 05:30 Laboratory Tests 04/02/17 05:30 Calcium 7.6 L Albumin 2.4 L Current Medications Amiodarone HCl (Cordarone -) 400 mg PO DAILY [facility] Last Admin: 04/01/17 10:40 Dose: 400 mg Atorvastatin Calcium (Lipitor -) 80 mg NGT HS [facility] Last Admin: 04/01/17 22:51 Dose: 80 mg Chlorhexidine Gluconate (Hibiclens For Decolonization -) 1 applic TP HS [facility] Last Admin: 04/01/17 22:50 Dose: 1 applic Chlorhexidine Gluconate (Peridex -) 15 ml MM BID SARAH Last Admin: 04/01/17 22:51 Dose: 15 ml Furosemide (Lasix Injection -) 80 mg IVPUSH BID@0600,1400 [facility] Last Admin: 04/02/17 06:23 Dose: 80 mg Heparin Sodium (Porcine) (Heparin -) 1,000 unit IVPUSH PRN PRN PRN Reason: Heparin Last Admin: 03/28/17 10:59 Dose: 1,000 unit Heparin Sodium (Porcine) (Heparin -) 5,000 unit IVPUSH PRN PRN PRN Reason: Heparin Hydrocortisone Sodium Succinate (Solu-Cortef -) 50 mg IVPB DAILY [facility] Heparin Sodium (Porcine) 25, (000 unit/ Sodium Chloride) 500 mls @ 20 mls/hr IV TITR SARAH; 1,000 UNIT/HR PRN Reason: Protocol Last Admin: 04/01/17 15:49 Dose: 26 mls/hr Propofol (Diprivan -) 100 mls @ 4.38 mls/hr IVPB TITR SARAH; 5 MCG/KG/MIN PRN Reason: Protocol Last Admin: 04/01/17 16:52 Dose: 10.512 mls/hr Norepinephrine Bitartrate 8, (000 mcg/ Dextrose) 258 mls @ 15.48 mls/hr IV TITR SARAH; 8 MCG/MIN PRN Reason: Protocol Last Admin: 04/01/17 11:07 Dose: 38.7 mls/hr Dopamine HCl 800,000 mcg/ (Sodium Chloride) 250 mls @ 22.98 mls/hr IV TITR SARAH ; 8 MCG/KG/MIN PRN Reason: Protocol Last Admin: 04/01/17 15:56 Dose: 14.4 mls/hr Insulin Aspart (Novolog Vial Sliding Scale -) 1 vial SQ ACHS SARAH PRN Reason: Protocol Last Admin: 04/02/17 06:30 Dose: 4 units Pantoprazole Sodium (Protonix 40mg Ivpb (Pre-Docked)) 40 mg IVPB DAILY [facility] Last Admin: 04/01/17 10:38 Dose: 40 mg Piperacillin Sod/Tazobactam Sod (Zosyn 2.25gm Ivpb (Pre-Docked)) 2.25 gm IVPB Q8H-IV [facility] Last Admin: 04/02/17 03:30 Dose: 2.25 gm Vancomycin HCl (Vancomycin Oral Solution) 125 mg PO Q6HPO [facility] Last Admin: 04/02/17 06:00 Dose: 125 mg A/P 76 year old Gentleman with PMhx of CKD, CHF, Hypertension, Afib, Obesity, Prostate Ca who presented s/p cardiac arrest with SUJATA and Volume overload #Non-Oliguric Acute on Chronic renal insufficiency with volume overload Additional HD with UF today with goal fluid removal of 3.5-4L as tolerated dialysis catheter to be removed today after dialysis Will plan to continue IV diuretics and trend renal function and urine output the next several days Dose all meds for Cr Cl less then 15 for now #Hypokalemia Supplement to keep K > 3.5 will use higher potassium bath with dialysis #Shock/Resp Failure Titrate pressers as per ICU Vent support Repeat cultures ID follow up Check C-diff #Anemia will get PRBC transfusion with dialysis today will also given Epogen given history of underlying CKD Thank you Garry Drew DO
[2017-04-02] MEDS ORDERED: NOREPINEPHRINE BITARTRATE 4 MG/4 ML ML IV ONE (12:04)
--- NOTE | 2017-04-02 12:33 | PN ---
Progress Note, Physician Chief Complaint: Pt is s/p tracheostomy. History of Present Illness: The patient is a 76 year old black male, with a significant past medical history of diastolic CHF (severely reduced RVEF of uncertain etiology; severely dilated RV on 02/2017 ECHO, per pt's polisher hand at [place]), (non- obstructive CAD by 2008 coronary angiogram), [employer] "biventricular pacemaker , COPD, HTN, HLD, Atrial Fibrillation, renal insufficiency, Morbid obesity, Prostate CA, Sleep apnea (on CPAP), generalized weakness (wheelchair-bound), Glaucoma BIBA from [facility], who was brought in to ER s/p Cardiac arrest. As per EMS, the patient was initially seated in PT doing leg exercises when he became unresponsive. Patient was brought back into his room in the DC and chest compressions were initiated by nursing staff. Down time was between 4- 5 minutes. patient was shocked once and ROSC was noted. As per EMS, patient was given 150 mg of Amiodarone in the field and was brought into the ED for further evaluation. Upon arrival to the ED, patients (health care proxy) gave consent to intubate over the telephone. 2:48 PM- 20 mg of Etomidate given through IV 2:49 PM- 150 mg of Succinylcholine given through IV 2:50 PM- Patient intubated with 7.5 ET tube, positioned 24 cm at the lip Pt's says pt is followed closely by [facility] and cardiac groups. I spoke by telephone with pt's polisher hand, who provided much of the above history. - Current Medication List Current Medications: Active Medications Amiodarone HCl (Cordarone -) 400 mg PO DAILY [facility] Last Admin: 04/01/17 10:40 Dose: 400 mg Atorvastatin Calcium (Lipitor -) 80 mg NGT HS [facility] Last Admin: 04/01/17 22:51 Dose: 80 mg Chlorhexidine Gluconate (Hibiclens For Decolonization -) 1 applic TP HS [facility] Last Admin: 04/01/17 22:50 Dose: 1 applic Chlorhexidine Gluconate (Peridex -) 15 ml MM BID [facility] Last Admin: 04/01/17 22:51 Dose: 15 ml Furosemide (Lasix Injection -) 80 mg IVPUSH BID@0600,1400 [facility] Last Admin: 04/02/17 06:23 Dose: 80 mg Heparin Sodium (Porcine) (Heparin -) 1,000 unit IVPUSH PRN PRN PRN Reason: Heparin Last Admin: 03/28/17 10:59 Dose: 1,000 unit Heparin Sodium (Porcine) (Heparin -) 5,000 unit IVPUSH PRN PRN PRN Reason: Heparin Hydrocortisone Sodium Succinate (Solu-Cortef -) 50 mg IVPB DAILY SARAH Heparin Sodium (Porcine) 25, (000 unit/ Sodium Chloride) 500 mls @ 20 mls/hr IV TITR SARAH; 1,000 UNIT/HR PRN Reason: Protocol Last Admin: 04/01/17 15:49 Dose: 26 mls/hr Propofol (Diprivan -) 100 mls @ 4.38 mls/hr IVPB TITR SARAH; 5 MCG/KG/MIN PRN Reason: Protocol Last Admin: 04/01/17 16:52 Dose: 10.512 mls/hr Norepinephrine Bitartrate 8, (000 mcg/ Dextrose) 258 mls @ 15.48 mls/hr IV TITR SARAH; 8 MCG/MIN PRN Reason: Protocol Last Admin: 04/01/17 11:07 Dose: 38.7 mls/hr Dopamine HCl 800,000 mcg/ (Sodium Chloride) 250 mls @ 22.98 mls/hr IV TITR SARAH ; 8 MCG/KG/MIN PRN Reason: Protocol Last Admin: 04/01/17 15:56 Dose: 14.4 mls/hr Insulin Aspart (Novolog Vial Sliding Scale -) 1 vial SQ ACHS SARAH PRN Reason: Protocol Last Admin: 04/02/17 06:30 Dose: 4 units Pantoprazole Sodium (Protonix 40mg Ivpb (Pre-Docked)) 40 mg IVPB DAILY [facility] Last Admin: 04/01/17 10:38 Dose: 40 mg Piperacillin Sod/Tazobactam Sod (Zosyn 2.25gm Ivpb (Pre-Docked)) 2.25 gm IVPB Q8H-IV [facility] Last Admin: 04/02/17 03:30 Dose: 2.25 gm Vancomycin HCl (Vancomycin Oral Solution) 125 mg PO Q6HPO [facility] Last Admin: 04/02/17 06:00 Dose: 125 mg - Objective Vital Signs: Vital Signs Temperature 97.5 F L 04/02/17 10:00 Pulse Rate 85 04/02/17 12:00 Respiratory Rate 25 H 04/02/17 12:16 Blood Pressure 143/79 04/02/17 12:00 O2 Sat by Pulse Oximetry (%) 100 04/02/17 10:00 Constitutional: Yes: Obese Eyes: Yes: WNL Neck: Yes: Decreased ROM, Other (tracheostomy) Cardiovascular: Yes: S2 (ventricular paced rhythm) Respiratory: Yes: Mechanically Ventilated, Other (tracheostomy) Gastrointestinal: Yes: Soft Genitourinary: Yes: Oliguria Musculoskeletal: Yes: Joint Swelling, Muscle Weakness Extremities: Yes: Cool Edema: Yes Edema: LLE: 2+, RLE: 2+ Peripheral Pulses WNL: No Peripheral Pulses: Left Doralis Pedis: 1+, Right Dorsalis Pedis: 1+ Integumentary: Yes: Venous Stasis Changes Neurological: Yes: Weakness Psychiatric: Yes: Other Labs: CBC, BMP 04/02/17 07:35 04/02/17 05:30 INR, PTT INR 1.25 (0.82-1.09) H 04/02/17 05:30 Abnormal Lab Results 04/01/17 04/02/17 04/02/17 05:15 05:30 05:30 WBC 17.5 H D RBC 2.44 L D Hgb 6.2 L* D Hct 19.6 L D MCHC 31.4 L RDW 18.0 H Neutrophils % 96.0 H 91.3 H Lymphocytes % 2.0 L D 1.8 L Monocytes % 2.0 L INR Chloride 96 L BUN 64 H D Creatinine 2.9 H Random Glucose 143 H D Calcium 7.6 L Total Protein 5.3 L Albumin 2.4 L Crossmatch 04/02/17 04/02/17 04/02/17 05:30 07:35 07:35 WBC 17.2 H RBC 2.45 L Hgb 6.3 L* Hct 19.6 L MCHC 31.9 L RDW 19.0 H Neutrophils % 92.2 H Lymphocytes % 2.0 L Monocytes % INR 1.25 H Chloride BUN Creatinine Random Glucose Calcium Total Protein Albumin Crossmatch See Detail - ....Imaging Chest X-ray: Image Reviewed (persistent opacity of left hemithorax) Other: Image Reviewed (telemetry: ventricular pacing) Problem List - Problems (1) Cardiac arrest Assessment/Plan: Underwent tracheostomy today (virtual whiteout of left hemithorax remains). On PO amiodarone. Remains on dopamine; norepinephrine. For hemodialysis this afternoon. Maintain K 4-4.5, Mg 2-2.3. Code(s): I46.9 - CARDIAC ARREST, CAUSE UNSPECIFIED (2) Acute on chronic diastolic CHF (congestive heart failure) Assessment/Plan: see under "cardiac arrest'. Code(s): I50.33 - ACUTE ON CHRONIC DIASTOLIC (CONGESTIVE) HEART FAILURE (3) Hyperlipidemia Assessment/Plan: high-dose statin. Code(s): E78.5 - HYPERLIPIDEMIA, UNSPECIFIED (4) Sleep apnea Code(s): G47.30 - SLEEP APNEA, UNSPECIFIED (5) HTN (hypertension) Code(s): I10 - ESSENTIAL (PRIMARY) HYPERTENSION (6) 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 hypertension Assessment/Plan: Hx COPD; severe RV failure. White-out of left lung. F/u Is and Os. S/p tracheostomy; remains ventrilator-dependent. F/u with heel brusher. Code(s): I27.2 - OTHER SECONDARY PULMONARY HYPERTENSION (7) Hyperkalemia Code(s): E87.5 - HYPERKALEMIA (8) Anemia Code(s): D64.9 - ANEMIA, UNSPECIFIED (9) Acute on chronic renal failure Code(s): N17.9 - ACUTE KIDNEY FAILURE, UNSPECIFIED N18.9 - CHRONIC KIDNEY DISEASE, UNSPECIFIED
[2017-04-02] MEDS: AMIODARONE HCL 200 MG TABLET (FP) PO SCH (12:41)
[2017-04-02] MEDS: PANTOPRAZOLE SODIUM 40 MG/100 ML PRE-DOCKED IVPB SCH (12:41)
[2017-04-02] MEDS: DEXTROSE 5% IV SCH (12:43)
[2017-04-02] MEDS: WATER IV SCH (12:43)
[2017-04-02] MEDS: NOREPINEPHRINE BITARTRATE IV SCH (12:43)
[2017-04-02] MEDS: CHLORHEXIDINE GLUCONATE 0.12% 15ML CUP MM SCH ×2 (12:53→22:05)
[2017-04-02] MEDS: SODIUM CHLORIDE IV SCH (12:54)
[2017-04-02] MEDS: DOPAMINE HCL IV SCH (12:54)
[2017-04-02] MEDS: PROPOFOL 100 ML IVPB SCH ×3 (12:56→20:10)
--- NOTE | 2017-04-02 13:08 | PN ---
Teaching Attending Note Name of Resident: Naif Reilly ATTENDING PHYSICIAN STATEMENT I saw and evaluated the patient. I reviewed the resident's note and discussed the case with the resident. I agree with the resident's findings and plan as documented. SUBJECTIVE: Pt seen and examined in the ICU. s/p bedside percutaneous tracheostomy this AM. Remains on levophed and dopamine gtts but decreased doses. No fevers recorded. Some bleeding from HD catheter yesterday especially during HD. OBJECTIVE: Last Vital Signs Temp Pulse Resp BP Pulse Ox 97.5 F L 72 25 H 132/76 100 04/02/17 10:00 04/02/17 12:43 04/02/17 12:16 04/02/17 12:43 04/02/17 10:00 Intake & Output 03/30/17 03/31/17 04/01/17 04/02/17 23:59 23:59 23:59 23:59 Intake Total 2316 4020 2777 760 Output Total 450 350 50 255 Balance 1866 3670 2727 505 Weight 337 lb 8.443 oz 337 lb 11.971 oz 345 lb 14.484 oz 340 lb 3.2 oz Gen: vented, sedated Heart: RRR, +systolic murmur Lung: scattered rhonchi Abd: soft, obese, edematous Ext: + edema CBC, BMP 04/02/17 07:35 04/02/17 05:30 Active Medications Amiodarone HCl (Cordarone -) 400 mg PO DAILY [facility] Last Admin: 04/02/17 12:41 Dose: 400 mg Atorvastatin Calcium (Lipitor -) 80 mg NGT HS [facility] Last Admin: 04/01/17 22:51 Dose: 80 mg Chlorhexidine Gluconate (Hibiclens For Decolonization -) 1 applic TP HS [facility] Last Admin: 04/01/17 22:50 Dose: 1 applic Chlorhexidine Gluconate (Peridex -) 15 ml MM BID [facility] Last Admin: 04/02/17 12:53 Dose: 15 ml Furosemide (Lasix Injection -) 80 mg IVPUSH BID@0600,1400 [facility] Last Admin: 04/02/17 06:23 Dose: 80 mg Heparin Sodium (Porcine) (Heparin -) 1,000 unit IVPUSH PRN PRN PRN Reason: Heparin Last Admin: 03/28/17 10:59 Dose: 1,000 unit Heparin Sodium (Porcine) (Heparin -) 5,000 unit IVPUSH PRN PRN PRN Reason: Heparin Hydrocortisone Sodium Succinate (Solu-Cortef -) 50 mg IVPB DAILY [facility] Last Admin: 04/02/17 12:52 Dose: 50 mg Heparin Sodium (Porcine) 25, (000 unit/ Sodium Chloride) 500 mls @ 20 mls/hr IV TITR SARAH; 1,000 UNIT/HR PRN Reason: Protocol Last Admin: 04/01/17 15:49 Dose: 26 mls/hr Propofol (Diprivan -) 100 mls @ 4.38 mls/hr IVPB TITR SARAH; 5 MCG/KG/MIN PRN Reason: Protocol Last Admin: 04/02/17 12:56 Dose: 10.512 mls/hr Norepinephrine Bitartrate 8, (000 mcg/ Dextrose) 258 mls @ 15.48 mls/hr IV TITR SARAH; 8 MCG/MIN PRN Reason: Protocol Last Admin: 04/02/17 12:43 Dose: 9.67 mls/hr Dopamine HCl 800,000 mcg/ (Sodium Chloride) 250 mls @ 22.98 mls/hr IV TITR SARAH ; 8 MCG/KG/MIN PRN Reason: Protocol Last Admin: 04/02/17 12:54 Dose: 14.36 mls/hr Insulin Aspart (Novolog Vial Sliding Scale -) 1 vial SQ ACHS SARAH PRN Reason: Protocol Last Admin: 04/02/17 06:30 Dose: 4 units Pantoprazole Sodium (Protonix 40mg Ivpb (Pre-Docked)) 40 mg IVPB DAILY [facility] Last Admin: 04/02/17 12:41 Dose: 40 mg Piperacillin Sod/Tazobactam Sod (Zosyn 2.25gm Ivpb (Pre-Docked)) 2.25 gm IVPB Q8H-IV [facility] Last Admin: 04/02/17 12:53 Dose: 2.25 gm Vancomycin HCl (Vancomycin Oral Solution) 125 mg PO Q6HPO [facility] Last Admin: 04/02/17 12:57 Dose: 125 mg ASSESSMENT AND PLAN: s/p Vfib Cardiac Arrest Acute on Chronic Hypoxic Respiratory Failure s/p Tracheostomy Acute on Chronic Diastolic Heart Failure Severe Pulmonary HTN s/p BiV PPM CAD +Troponins Atrial Fibrillation HTN CKD Hyperlipidemia DM COPD Morbid Obesity Obstructive Sleep Apnea Anemia - continue antibiotics per ID - f/u cultures - stool for C diff - keep K>4, Mg>2 - continue amiodarone - transfuse PRBC with HD - monitor H/H - resume anticoagulation in AM if no bleeding - taper off hydrocortisone - lasix boluses - titrate levophed, dopamine gtts to maintain MAP >65 - monitor urine output, creatinine - HD per renal - poor visualization of left hemithorax on bedside ultrasound, will need CT chest when more stable - taper FiO2 to keep SpO2 >90% - lighten sedation in AM to assess mental status - spontaneous breathing trials as tolerated - enteral feeds - DVT/GI prophylaxis - continue ICU monitoring critical care time spent in reviewing chart, evaluating patient and formulating plan 40 min
--- NOTE | 2017-04-02 13:24 | PN ---
Teaching Attending Note Name of Resident: Cleve Bourgeois ATTENDING PHYSICIAN STATEMENT I saw and evaluated the patient. I reviewed the resident's note and discussed the case with the resident. I agree with the resident's findings and plan as documented. SUBJECTIVE:seen after trach today . no events over night . no fever . OBJECTIVE: sedated , trached. R nose bleed ( during NG placement trial ) , R IJ with bloody dressing CV: RRR, no MRG Lungs ;rales at bases Abd : more distended than before. tympanic . Abd wall edema 1+ Ext : 2+ pitting edema on LE , Chronic hyperpigmentation and skin thickening. ASSESSMENT AND PLAN: 76 y/o man with h/o Severe cardiomypathy( non ischemic ) ,with severely reduced EF, and PULm HTN, Diastolic dysfunction , A fib on AC, who presented with cardiac arrest (V fib ) from his [facility] 1- S/P cardiac arrest: due to severe R sided cardiomyopathy. - cont Levophed and dopamine . taper as tolerated - cont Amio 400 daily - cont hydrocortisone taper 2- Severe non-ischemic cardiomypoathy, with acute on chronic systolic and diastolic heart failure - managing volume with HD - cont IV lasix - monitor I&Os 2- Acute hypoxic resp failure :due to CHF , Left PNA ( sputum cx with PMRSA ) - cont zosyn. until cx is final - cont vanco , and follow vanco levels - cont Vent support .had tracheostomy today 4- acute o n chronic anemia: multifactorial due to bleeding from IJ site, and CKD, blood withdrawal . unlikely has GI bleed or retroperitoneal bleed abd is distended after bagging for trach. - transfuse with HD - epogen - fecal OB - monitor - hold heparin gtt ( already on hold for trach) 5- A fib: rate is controlled , - monitor rate 5-SUJATA on CKD : cont HD. 6- diarrhea . cont empiric po vanco pending C diff toxin DVT px : place scds
[2017-04-02] MEDS ORDERED: PROPOFOL 100 ML ONE (13:56)
--- NOTE | 2017-04-02 14:23 | OP ---
- Note: Patient Name: Fred Cortes MR#: [id number] Procedure Date: 04/02/2017 Preoperative Diagnosis: Respiratory failure. Postoperative Diagnosis: same. Procedure: 1. Percutaneous tracheostomy with #8 Shiley; 2. Bronchoscopy (performed by Dr. Forde). Indication: Respiratory failure; Surgeon(s): Rodolfo Benson MD Cosurgeon: alan Manager Skilled Surgeon: Jack Forde MD. Anesthesia: General endotracheal; Findings: Abundant secretions. Specimens Sent: 1. na; Complications: none Drains / Tubes / Catheters: na Hardware / Implants: na Blood / Fluid Losses: minimal Post-Operative Condition: Stable. Indications: This patient is a 76 year-old male with a history of CHF, Renal failure, and respiratory failure referred for tracheostomy by Dr. Forde and the ICU team. An informed consent was obtained. All questions were addressed and his family agreed. Details of Procedure: The procedure was done at the bedside. We began with bronchoscopy to clear the airway for the procedure. This was done by Dr. Forde. He required pressors after paralysis was given and 100%FiO2 to keep his saturation in the high 90s. After this, the neck was prepared and draped in standard fashion. We then made a transverse incision below the cricoid cartilage. We withdrew the endotracheal airway until we were close to the vocal cords. Of note , this procedure was difficult due to his girth. We had to reintubate him at one point. However, his saturations were maintained when the endotracheal tube was removed. We then repreparted his neck after resuscitating his lung function and re-paralyzing. With the incision in place, we inserted the needle from the percutaneous bronchoscopy kit under direct bronchoscopic vision identifying approximately the 2nd to 3rd ring. We then passed a wire under vision. We then dilated up and inserted the tracheostomy. We put the cuff up and connected the ventilator. We placed the bronchoscope through the tracheostomy and then above. There was blood from the subcutaneous tissue that went into the airway. This was removed. There was no active bleeding and the placement was good.
--- NOTE | 2017-04-02 14:48 | PROC ---
Procedure Note Procedure: BRONCHOSCOPY NOTE Consent obtained from . Storz video bronchoscope was passsed via the endotracheal tube. Airways were examined down to the subsegmental level. Echo was widened. No endobronchial lesions noted. Altered anatomy in the left lower lobe presuming from atelectasis. Trachea visualized as percutaneous tracheostomy placed. During procedure, airway was dislodged but pt reintubated without difficulty. Bronchoscope passed via the tracheostomy confirming placement and no active bleeding noted. Jack Forde MD
--- NOTE | 2017-04-02 18:58 | PN ---
Physical Exam: SUBJECTIVE: Patient seen and examined at bedside. No overnight events. Patient was trached at bedside today. OBJECTIVE: Vital Signs Period Temp Pulse Resp BP Sys/Krishnan Pulse Ox Last 24 Hr 97.2 F-99.6 F 18-95 14-28 84-150/51-90 100-100 GENERAL: sedated HEAD: Normal with no signs of trauma. EYES: pupils reactive to light ENT: RIJ in place -bloody NECK: tracheostomy LUNGS: Diminished breath sounds bilat. , bibasilar rales and scattered rhonchi. HEART: RRR, S1, S2 w/o murmur, rub or gallop. ABDOMEN: Obese,tympanic, hypoactive BS, edema of abdominal wall. EXTREMITIES: 2+ pittiing edema up to abdomen . Chronic changes of lower ext. NEUROLOGICAL: Sedated but opens eyes on command. Moves upper extremities to verbal command. SKIN: Warm, dry, thickened skin on bilat. LE Laboratory Results - last 24 hr 04/01/17 04/01/17 04/01/17 11:31 16:41 22:59 WBC RBC Hgb Hct MCV MCHC RDW Plt Count MPV Neutrophils % Lymphocytes % Monocytes % Eosinophils % Basophils % Microcytosis INR PTT (Actin FS) Sodium Potassium Chloride Carbon Dioxide Anion Gap BUN Creatinine Creat Clearance w eGFR POC Glucometer [phone] 265.26500 Random Glucose Calcium Total Bilirubin AST ALT Alkaline Phosphatase Total Protein Albumin Random Vancomycin Blood Type Antibody Screen Crossmatch 04/02/17 04/02/17 04/02/17 05:30 05:30 05:30 WBC 17.5 H D RBC 2.44 L D Hgb 6.2 L* D Hct 19.6 L D MCV 80.4 MCHC 31.4 L RDW 18.0 H Plt Count 194 MPV 8.6 D Neutrophils % 91.3 H Lymphocytes % 1.8 L Monocytes % 6.3 D Eosinophils % 0.3 D Basophils % 0.3 Microcytosis 1+ INR 1.25 H PTT (Actin FS) 27.5 D Sodium 139 Potassium 3.7 Chloride 96 L Carbon Dioxide 27 Anion Gap 16 BUN 64 H D Creatinine 2.9 H Creat Clearance w eGFR 21.15 POC Glucometer Random Glucose 143 H D Calcium 7.6 L Total Bilirubin 0.6 AST 17 ALT 15 Alkaline Phosphatase 65 Total Protein 5.3 L Albumin 2.4 L Random Vancomycin Blood Type Antibody Screen Crossmatch 04/02/17 04/02/17 04/02/17 06:00 06:02 07:35 WBC 17.2 H RBC 2.45 L Hgb 6.3 L* Hct 19.6 L MCV 80.1 MCHC 31.9 L RDW 19.0 H Plt Count 179 MPV 8.7 Neutrophils % 92.2 H Lymphocytes % 2.0 L Monocytes % 5.1 Eosinophils % 0.3 Basophils % 0.4 Microcytosis INR PTT (Actin FS) Sodium Potassium Chloride Carbon Dioxide Anion Gap BUN Creatinine Creat Clearance w eGFR POC Glucometer [phone] Random Glucose Calcium Total Bilirubin AST ALT Alkaline Phosphatase Total Protein Albumin Random Vancomycin 19.652 Blood Type Antibody Screen Crossmatch 04/02/17 04/02/17 07:35 09:15 WBC RBC Hgb Hct MCV MCHC RDW Plt Count MPV Neutrophils % Lymphocytes % Monocytes % Eosinophils % Basophils % Microcytosis INR PTT (Actin FS) Sodium Potassium Chloride Carbon Dioxide Anion Gap BUN Creatinine Creat Clearance w eGFR POC Glucometer Random Glucose Calcium Total Bilirubin AST ALT Alkaline Phosphatase Total Protein Albumin Random Vancomycin Blood Type AB POSITIVE AB POSITIVE Antibody Screen Negative Crossmatch See Detail See Detail Active Medications Generic Name Dose Route Start Last Admin Trade Name Freq PRN Reason Stop Dose Admin Amiodarone HCl 400 mg 03/26/17 10:00 04/02/17 12:41 Cordarone - PO 400 mg DAILY SARAH Administration Atorvastatin Calcium 80 mg 03/18/17 09:45 04/01/17 22:51 Lipitor - NGT 80 mg HS SARAH Administration Chlorhexidine Gluconate 1 applic 03/17/17 22:00 04/01/17 22:50 Hibiclens For Decolonization - TP 1 applic HS SARAH Administration Chlorhexidine Gluconate 15 ml 03/18/17 22:15 04/02/17 12:53 Peridex - MM 15 ml BID SARAH Administration Furosemide 80 mg 03/30/17 14:00 04/02/17 18:36 Lasix Injection - IVPUSH Not Given BID@0600,1400 SARAH Heparin Sodium (Porcine) 1,000 unit 03/22/17 08:38 03/28/17 10:59 Heparin - IVPUSH 1,000 unit PRN PRN Administration Heparin Heparin Sodium (Porcine) 5,000 unit 03/22/17 08:38 Heparin - IVPUSH PRN PRN Heparin Hydrocortisone Sodium Succinate 50 mg 04/02/17 10:00 04/02/17 12:52 Solu-Cortef - IVPB 50 mg DAILY SARAH Administration Heparin Sodium (Porcine) 25, 500 mls @ 20 mls/hr 03/22/17 08:45 04/01/17 15:49 000 unit/ Sodium Chloride IV 26 mls/hr TITR SARAH Administration Protocol 1,000 UNIT/HR Propofol 100 mls @ 4.38 mls/hr 03/23/17 12:00 04/02/17 17:48 Diprivan - IVPB 26.28 mls/hr TITR SARAH Administration Protocol 5 MCG/KG/MIN Norepinephrine Bitartrate 8, 258 mls @ 15.48 mls/hr 03/30/17 08:15 04/02/17 12: 43 000 mcg/ Dextrose IV 9.67 mls/hr TITR SARAH Administration Protocol 8 MCG/MIN Dopamine HCl 800,000 mcg/ 250 mls @ 22.98 mls/hr 03/31/17 11:00 04/02/17 12:54 Sodium Chloride IV 14.36 mls/hr TITR SARAH Administration Protocol 8 MCG/KG/MIN Insulin Aspart 1 vial 03/24/17 07:00 04/02/17 17:43 Novolog Vial Sliding Scale - SQ 4 units ACHS SARAH Administration Protocol Pantoprazole Sodium 40 mg 03/18/17 10:00 04/02/17 12:41 Protonix 40mg Ivpb (Pre-Docked) IVPB 40 mg DAILY [facility] Administration Piperacillin Sod/Tazobactam Sod 2.25 gm 04/01/17 10:00 04/02/17 17:46 Zosyn 2.25gm Ivpb (Pre-Docked) IVPB 2.25 gm Q8H-IV SARAH Administration Vancomycin HCl 125 mg 03/31/17 12:00 04/02/17 18:36 Vancomycin Oral Solution PO 125 mg Q6HPO SARAH Administration ASSESSMENT/PLAN: 76 y/o M with signifcant PMHx of CHF, HTN, Afib, and pulmonary HTN admitted from detention s/p cardiac arrest 2/2 vfib admitted to ICU Problem List - Problems (1) Cardiac arrest Assessment/Plan: * Patient was trached today * Patient transfused 2 units PRBC for Hgb<7.0 * currently on Levo 5mcg/hr and Dopa 5mcg/hr * augustine Hydrocortisone * Maintaining MAP > 65 * Amiodarone 400mg PO daily * Continue ICU monitoring. (2) Positive culture findings in sputum Assessment/Plan: * sputum (+) for MRSA * Continue Vancomycin daily with repeat trough * Continue Zosyn * will repeat AM labs. (3) Acute on chronic diastolic CHF (congestive heart failure) Assessment/Plan: * Lasix 80mg BID IVPUSH * HD with UF today * monitor I/O's * daily weights. (4) CKD (chronic kidney disease) Assessment/Plan: * Stage 4 GFR 23 * Dialyzed today * continue Lasix 80mg IV BID (5) A-fib Assessment/Plan: * Currently paced * Continue Amiodarone * AC with heparin ggt--held for possible acute bleed. * Digoxin held due to renal function. (6) DVT prophylaxis Assessment/Plan: * Heparin GGT--held * SCD's bilat. Visit type - Emergency Visit Emergency Visit: Yes ED Registration Date: 03/17/17 Care time: The patient presented to the Emergency Department on the above date and was hospitalized for further evaluation of their emergent condition. - New Patient This patient is new to me today: No - Critical Care Critical Care patient: Yes Total Critical Care Time (in minutes): 33 Critical Care Statement: The care of this patient involved high complexity decision making to prevent further life threatening deterioration of the patient 's condition and/or to evalute & treat vital organ system(s) failure or risk of failure.
[2017-04-02] MEDS: ATORVASTATIN CA 80 MG TABLET (FP) NGT SCH (22:03)
[2017-04-02] MEDS ORDERED: PT OWN MED DRAWER 7, Y5N ONE (23:00)
[2017-04-02] MEDS: CHLORHEXIDINE GLUCONATE 4% CLEANSER FOR DECOLONIZATION TP SCH (23:02)
[2017-04-03] MEDS ORDERED: NOREPINEPHRINE BITARTRATE 4 MG/4 ML ML IV ONE ×2 (00:25→15:05)
[2017-04-03] MEDS ORDERED: DOPamine HCL 400 MG/10 ML VIAL ONE (00:26)
[2017-04-03] MEDS: PIPERACILLIN/TAZOB 2.25 GM/50 ML PRE-DOCKED BAG IVPB SCH ×3 (02:00→18:47)
[2017-04-03] MEDS ORDERED: PT OWN MED DRAWER 7, Y5N ONE (05:57)
[2017-04-03] MEDS: BANATROL PLUS POWDER PACKET PO SCH ×3 (05:58→22:59)
[2017-04-03] MEDS: FUROSEMIDE 40 MG/4 ML INJECTABLE VIAL IVPUSH SCH ×2 (05:58→15:00)
[2017-04-03] MEDS: VANCOMYCIN 250 MG/5 ML ORAL SOLUTION PO SCH ×2 (06:02)
[2017-04-03] MEDS: NOREPINEPHRINE BITARTRATE IV SCH ×3 (06:03→22:59)
[2017-04-03] MEDS: DEXTROSE 5% IV SCH ×3 (06:03→22:59)
[2017-04-03] MEDS: WATER IV SCH ×3 (06:03→22:59)
[2017-04-03] MEDS: SODIUM CHLORIDE IV SCH ×2 (06:04→22:59)
[2017-04-03] MEDS: DOPAMINE HCL IV SCH ×2 (06:04→22:59)
[2017-04-03 06:18] LABS: BASOPHIL 0.2 % (0-2.0); EOSINOPHIL 0.7 % (0-4.5); MCH 26.9 pg (25.7-33.7); MCHC 33.2 g/dl (32.0-35.9); MEAN CELL VOLUME 80.9 fl (80-96); MEAN PLT VOLUME 8.7 fl (7.5-11.1); NEUTROPHILS 85.8 % (42.8-82.8); PLATELET COUNT 187 K/MM3 (134-434); RDW 18.6 % (11.9-15.9); WHITE BLOOD COUNT 14.5 K/mm3 (4.0-10.0)
[2017-04-03 06:58] LABS: ALBUMIN 2.5 g/dl (3.4-5.0); BILIRUBIN,TOTAL 0.8 mg/dL (0.2-1.0); CALCIUM 8.1 mg/dL (8.5-10.1); CREATININE 2.4 mg/dL (0.7-1.3); MAGNESIUM 2.1 mg/dL (1.8-2.4); PHOSPHOROUS 2.4 mg/dL (2.5-4.9); TOT PROT 5.5 g/dl (6.4-8.2)
[2017-04-03] MEDS: INSULIN SLIDING SCALE (NOVOLOG) 1 VIAL SQ SCH ×3 (07:06→17:00)
[2017-04-03 07:25] LABS: ALLENS TEST POSITIVE; ART PUNCT SITE RIGHT RADIAL; ARTERIAL BLD GAS O2 SATURATION 97.2 % (90-98.9); ARTERIAL BLOOD GAS BASE EXCESS 4.9 meq/l (-2-2); ARTERIAL BLOOD GAS HCO3 28.2 meq/L (22-26); ARTERIAL BLOOD GAS PO2 78.2 mmHg (70-100); LPM/O2% 40%; MECH. VENT. YES; PT. ON O2? YES; TYPE OF O2 VENT; VENT RATE 16; VT/PRESS 380
[2017-04-03 07:28] LABS: ARTERIAL BLOOD GAS pH 7.49 (7.35-7.45)
[2017-04-03 07:32] LABS: COCKROFT - GAULT 54.4
--- NOTE | 2017-04-03 11:24 | PN ---
Teaching Attending Note Name of Resident: Naif Reilly ATTENDING PHYSICIAN STATEMENT I saw and evaluated the patient. I reviewed the resident's note and discussed the case with the resident. I agree with the resident's findings and plan as documented. SUBJECTIVE: Patient seen and examined in the ICU. Eyes are open. Some bleeding from the Trach site. Pressor dependent (NE & Dopamine). No oozing from removed HD catheter. Intake & Output 03/31/17 04/01/17 04/02/17 04/03/17 23:59 23:59 23:59 23:59 Intake Total 4020 2777 1783 465 Output Total 350 50 355 100 Balance 3670 2727 1428 365 Weight 337 lb 11.971 oz 345 lb 14.484 oz 340 lb 3.2 oz 334 lb 5 oz Last Vital Signs Temp Pulse Resp BP Pulse Ox 98.1 F 88 27 H 108/73 100 04/03/17 10:00 04/03/17 10:00 04/03/17 10:00 04/03/17 10:00 04/02/17 19:30 Active Medications Amiodarone HCl (Cordarone -) 400 mg PO DAILY [facility] Last Admin: 04/02/17 12:41 Dose: 400 mg Atorvastatin Calcium (Lipitor -) 80 mg NGT HS [facility] Last Admin: 04/02/17 22:03 Dose: 80 mg Chlorhexidine Gluconate (Hibiclens For Decolonization -) 1 applic TP HS [facility] Last Admin: 04/02/17 23:02 Dose: 1 applic Chlorhexidine Gluconate (Peridex -) 15 ml MM BID [facility] Last Admin: 04/02/17 22:05 Dose: 15 ml Furosemide (Lasix Injection -) 80 mg IVPUSH BID@0600,1400 [facility] Last Admin: 04/03/17 05:58 Dose: 80 mg Heparin Sodium (Porcine) (Heparin -) 1,000 unit IVPUSH PRN PRN PRN Reason: Heparin Last Admin: 03/28/17 10:59 Dose: 1,000 unit Heparin Sodium (Porcine) (Heparin -) 5,000 unit IVPUSH PRN PRN PRN Reason: Heparin Hydrocortisone Sodium Succinate (Solu-Cortef -) 50 mg IVPB DAILY [facility] Last Admin: 04/02/17 12:52 Dose: 50 mg Heparin Sodium (Porcine) 25, (000 unit/ Sodium Chloride) 500 mls @ 20 mls/hr IV TITR SARAH; 1,000 UNIT/HR PRN Reason: Protocol Last Admin: 04/01/17 15:49 Dose: 26 mls/hr Propofol (Diprivan -) 100 mls @ 4.38 mls/hr IVPB TITR SARAH; 5 MCG/KG/MIN PRN Reason: Protocol Last Admin: 04/02/17 20:10 Dose: 30 mls/hr Norepinephrine Bitartrate 8, (000 mcg/ Dextrose) 258 mls @ 15.48 mls/hr IV TITR SARAH; 8 MCG/MIN PRN Reason: Protocol Last Admin: 04/03/17 06:03 Dose: 18.8 mls/hr Dopamine HCl 800,000 mcg/ (Sodium Chloride) 250 mls @ 22.98 mls/hr IV TITR SARAH ; 8 MCG/KG/MIN PRN Reason: Protocol Last Admin: 04/03/17 06:04 Dose: 14.4 mls/hr Potassium Phosphate 15 mm/ (Dextrose) 255 mls @ 62.5 mls/hr IVPB ONCE ONE Stop: 04/03/17 14:15 Insulin Aspart (Novolog Vial Sliding Scale -) 1 vial SQ ACHS SARAH PRN Reason: Protocol Last Admin: 04/03/17 07:06 Dose: 2 units Pantoprazole Sodium (Protonix 40mg Ivpb (Pre-Docked)) 40 mg IVPB DAILY [facility] Last Admin: 04/02/17 12:41 Dose: 40 mg Piperacillin Sod/Tazobactam Sod (Zosyn 2.25gm Ivpb (Pre-Docked)) 2.25 gm IVPB Q8H-IV [facility] Last Admin: 04/03/17 02:00 Dose: 2.25 gm Gen: vented, eyes are open Heart: RRR, +systolic murmur Lung: scattered rhonchi Abd: soft, obese, edematous Ext: + edema Laboratory Results - last 24 hr 04/02/17 04/02/17 04/02/17 07:35 09:15 22:57 WBC RBC Hgb Hct MCV MCHC RDW Plt Count MPV Neutrophils % Lymphocytes % Monocytes % Eosinophils % Basophils % Puncture Site ABG pH ABG pCO2 at Pt Temp ABG pO2 at Pt Temp ABG HCO3 ABG O2 Sat (Measured) ABG O2 Content ABG Base Excess Brian Test O2 Delivery Device Oxygen Flow Rate Vent Mode Vent Rate Mechanical Rate PEEP Pressure Support Vent Sodium Potassium Chloride Carbon Dioxide Anion Gap BUN Creatinine Creat Clearance w eGFR POC Glucometer [phone] Random Glucose Calcium Phosphorus Magnesium Total Bilirubin AST ALT Alkaline Phosphatase Total Protein Albumin Blood Type AB POSITIVE AB POSITIVE Antibody Screen Negative Crossmatch See Detail See Detail 04/03/17 04/03/17 04/03/17 05:35 05:35 06:05 WBC 14.5 H RBC 2.56 L Hgb 6.9 L* Hct 20.7 L MCV 80.9 MCHC 33.2 RDW 18.6 H Plt Count 187 MPV 8.7 Neutrophils % 85.8 H Lymphocytes % 5.7 L D Monocytes % 7.6 Eosinophils % 0.7 D Basophils % 0.2 Puncture Site ABG pH ABG pCO2 at Pt Temp ABG pO2 at Pt Temp ABG HCO3 ABG O2 Sat (Measured) ABG O2 Content ABG Base Excess Brian Test O2 Delivery Device Oxygen Flow Rate Vent Mode Vent Rate Mechanical Rate PEEP Pressure Support Vent Sodium 137 Potassium 3.6 Chloride 97 L Carbon Dioxide 30 Anion Gap 10 BUN 47 H D Creatinine 2.4 H Creat Clearance w eGFR 26.31 POC Glucometer [phone] Random Glucose 159 H Calcium 8.1 L Phosphorus 2.4 L D Magnesium 2.1 Total Bilirubin 0.8 D AST 22 D ALT 16 Alkaline Phosphatase 63 Total Protein 5.5 L Albumin 2.5 L Blood Type Antibody Screen Crossmatch 04/03/17 07:00 WBC RBC Hgb Hct MCV MCHC RDW Plt Count MPV Neutrophils % Lymphocytes % Monocytes % Eosinophils % Basophils % Puncture Site Right radial ABG pH 7.49 H ABG pCO2 at Pt Temp 37.0 ABG pO2 at Pt Temp 78.2 D ABG HCO3 28.2 H ABG O2 Sat (Measured) 97.2 ABG O2 Content 11.2 L ABG Base Excess 4.9 H Brian Test Positive O2 Delivery Device Vent Oxygen Flow Rate 40% Vent Mode A/c Vent Rate 16 Mechanical Rate Yes PEEP 5.0 Pressure Support Vent 380 Sodium Potassium Chloride Carbon Dioxide Anion Gap BUN Creatinine Creat Clearance w eGFR POC Glucometer Random Glucose Calcium Phosphorus Magnesium Total Bilirubin AST ALT Alkaline Phosphatase Total Protein Albumin Blood Type Antibody Screen Crossmatch CXR: Trach in place / right effusion/opacity ASSESSMENT AND PLAN: S/P Vfib Cardiac Arrest Acute on Chronic Hypoxic Respiratory Failure S/P Tracheostomy Acute on Chronic Diastolic Heart Failure Severe Pulmonary HTN S/P BiV PPM CAD +Troponins Atrial Fibrillation HTN CKD Hyperlipidemia DM COPD Morbid Obesity Obstructive Sleep Apnea Anemia - ABX per ID - f/u cultures - keep K>4, Mg>2 - continue amiodarone - Normal transfusion thresholds - monitor H/H - Hydrocortisone - lasix - titrate levophed, dopamine gtts to maintain MAP >65 - monitor urine output, creatinine - D/W renal -> Will monitor off HD for the next few days if not acutely needed - taper FiO2 to keep SpO2 >90% - Minimize sedation to follow mental status - spontaneous breathing trials as tolerated - enteral feeds - DVT/GI prophylaxis Dr Gomez critical care time spent in reviewing chart, evaluating patient and formulating plan 40 min
--- NOTE | 2017-04-03 11:47 | PN ---
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 As per EMS, the patient was initially seated in PT doing leg exercises when he became unresponsive. Patient was brought back into his room in the [place] and chest compressions were initiated by nursing staff. Down time was between 4-5 minutes. patient was shocked once and ROSC was noted. As per EMS, patient was given 150 mg of Amiodarone in the field and was brought into the ED for further evaluation. Upon arrival to the ED, patients (health care proxy) gave consent to intubate over the telephone. 2:48 PM- 20 mg of Etomidate given through IV 2:49 PM- 150 mg of Succinylcholine given through IV 2:50 PM- Patient intubated with 7.5 ET tube, positioned 24 cm at the lip Pt's says pt is followed closely by [place] [facility]. I spoke by telephone with pt's gas operation manager, who provided much of the above history. - Current Medication List Current Medications: Active Medications Amiodarone HCl (Cordarone -) 400 mg PO DAILY [facility] Last Admin: 04/02/17 12:41 Dose: 400 mg Atorvastatin Calcium (Lipitor -) 80 mg NGT HS [facility] Last Admin: 04/02/17 22:03 Dose: 80 mg Chlorhexidine Gluconate (Hibiclens For Decolonization -) 1 applic TP [facility] Last Admin: 04/02/17 23:02 Dose: 1 applic Chlorhexidine Gluconate (Peridex -) 15 ml MM BID [facility] Last Admin: 04/02/17 22:05 Dose: 15 ml Furosemide (Lasix Injection -) 80 mg IVPUSH BID@0600,1400 [facility] Last Admin: 04/03/17 05:58 Dose: 80 mg Heparin Sodium (Porcine) (Heparin -) 1,000 unit IVPUSH PRN PRN PRN Reason: Heparin Last Admin: 03/28/17 10:59 Dose: 1,000 unit Heparin Sodium (Porcine) (Heparin -) 5,000 unit IVPUSH PRN PRN PRN Reason: Heparin Hydrocortisone Sodium Succinate (Solu-Cortef -) 50 mg IVPB DAILY [facility] Last Admin: 04/02/17 12:52 Dose: 50 mg Heparin Sodium (Porcine) 25, (000 unit/ Sodium Chloride) 500 mls @ 20 mls/hr IV TITR SARAH; 1,000 UNIT/HR PRN Reason: Protocol Last Admin: 04/01/17 15:49 Dose: 26 mls/hr Propofol (Diprivan -) 100 mls @ 4.38 mls/hr IVPB TITR SARAH; 5 MCG/KG/MIN PRN Reason: Protocol Last Admin: 04/02/17 20:10 Dose: 30 mls/hr Norepinephrine Bitartrate 8, (000 mcg/ Dextrose) 258 mls @ 15.48 mls/hr IV TITR SARAH; 8 MCG/MIN PRN Reason: Protocol Last Admin: 04/03/17 06:03 Dose: 18.8 mls/hr Dopamine HCl 800,000 mcg/ (Sodium Chloride) 250 mls @ 22.98 mls/hr IV TITR SARAH ; 8 MCG/KG/MIN PRN Reason: Protocol Last Admin: 04/03/17 06:04 Dose: 14.4 mls/hr Potassium Phosphate 15 mm/ (Dextrose) 255 mls @ 62.5 mls/hr IVPB ONCE ONE Stop: 04/03/17 14:15 Insulin Aspart (Novolog Vial Sliding Scale -) 1 vial SQ ACHS SARAH PRN Reason: Protocol Last Admin: 04/03/17 07:06 Dose: 2 units Pantoprazole Sodium (Protonix 40mg Ivpb (Pre-Docked)) 40 mg IVPB DAILY [facility] Last Admin: 04/02/17 12:41 Dose: 40 mg Piperacillin Sod/Tazobactam Sod (Zosyn 2.25gm Ivpb (Pre-Docked)) 2.25 gm IVPB Q8H-IV [facility] Last Admin: 04/03/17 02:00 Dose: 2.25 gm - Objective Vital Signs: Vital Signs Temperature 98.1 F 04/03/17 10:00 Pulse Rate 88 04/03/17 10:00 Respiratory Rate 28 H 04/03/17 11:20 Blood Pressure 108/73 04/03/17 10:00 O2 Sat by Pulse Oximetry (%) 100 04/02/17 19:30 Eyes: Yes: WNL, Conjunctiva Clear, EOM Intact HENT: Yes: WNL, Atraumatic, Normocephalic Neck: Yes: WNL, Supple, Trachea Midline Cardiovascular: Yes: WNL, Regular Rate and Rhythm, Murmur Respiratory: Yes: Mechanically Ventilated, Other (tracheostomy) Gastrointestinal: Yes: WNL, Normal Bowel Sounds Genitourinary: Yes: WNL Musculoskeletal: Yes: WNL Extremities: Yes: WNL Edema: Yes Integumentary: Yes: WNL Neurological: Yes: WNL, Alert, Oriented ...Motor Strength: WNL Psychiatric: Yes: WNL Labs: CBC, BMP 04/03/17 05:35 04/03/17 05:35 INR, PTT INR 1.25 (0.82-1.09) H 04/02/17 05:30 Assessment/Plan 1) Cardiac arrest Assessment/Plan: Remains intubated (virtual whiteout of left hemithorax remains). Now on PO amiodarone. Restarted dopamine; norepinephrine dose had to be increased to maintain BP; off vasopressin. F/u Is and Os, respiratory response to IV furosemide (dose increased). Maintain K 4-4.5, Mg 2-2.3. Tracheostomy, had to be delayed due to marked leukocytosis and hypotension. Pt has been undergoing hemodialysis, but ultrafiltration held today (hypotension ). Code(s): I46.9 - CARDIAC ARREST, CAUSE UNSPECIFIED (2) Acute on chronic diastolic CHF (congestive heart failure) Assessment/Plan: - Problems (1) Cardiac arrest Assessment/Plan: Underwent tracheostomy yesterday (virtual whiteout of left hemithorax remains). On PO amiodarone. Remains on dopamine; norepinephrine. For hemodialysis this afternoon. Maintain K 4-4.5, Mg 2-2.3. Code(s): I46.9 - CARDIAC ARREST, CAUSE UNSPECIFIED (2) Acute on chronic diastolic CHF (congestive heart failure) Assessment/Plan: see under "cardiac arrest'. Code(s): I50.33 - ACUTE ON CHRONIC DIASTOLIC (CONGESTIVE) HEART FAILURE (3) Hyperlipidemia Assessment/Plan: high-dose statin. Code(s): E78.5 - HYPERLIPIDEMIA, UNSPECIFIED (4) Sleep apnea Code(s): G47.30 - SLEEP APNEA, UNSPECIFIED (5) HTN (hypertension) Code(s): I10 - ESSENTIAL (PRIMARY) HYPERTENSION (6) 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 hypertension Assessment/Plan: Hx COPD; severe RV failure. White-out of left lung. F/u Is and Os. S/p tracheostomy; remains ventrilator-dependent. 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 Code(s): I27.2 - OTHER SECONDARY PULMONARY HYPERTENSION (7) Hyperkalemia Code(s): E87.5 - HYPERKALEMIA (8) Anemia Code(s): D64.9 - ANEMIA, UNSPECIFIED consider PRBC transfussion (9) Acute on chronic renal failure Code(s): N17.9 - ACUTE KIDNEY FAILURE, UNSPECIFIED N18.9 - CHRONIC KIDNEY DISEASE, UNSPECIFIED CC time 40 min
--- NOTE | 2017-04-03 12:17 | PN ---
Progress Note (short form) - Note Progress Note: Renal Follow up for SUJATA/Fluid overload Pt seen and examined in the ICU on vent via trach on Dopamine and Levophed urine output is minimal BP at gaol, CVP is 11 Vital Signs Temperature 97.8 F 04/03/17 12:00 Pulse Rate 87 04/03/17 12:00 Respiratory Rate 25 H 04/03/17 12:00 Blood Pressure 100/62 04/03/17 12:00 O2 Sat by Pulse Oximetry (%) 100 04/02/17 19:30 Intake & Output 03/31/17 04/01/17 04/02/17 04/03/17 23:59 23:59 23:59 23:59 Intake Total 4020 2777 1783 465 Output Total 350 50 355 100 Balance 3670 2727 1428 365 Weight 337 lb 11.971 oz 345 lb 14.484 oz 340 lb 3.2 oz 334 lb 5 oz Gen: on Vent, sedated CVS: RRR, No M/R Lungs: DEC BS throughout the lung ortiz, no rales Abd: soft, Obese, ND Ext: 2+ edema in LE, no cyanosis, warm ext : Ridley in place CBC, BMP 04/03/17 05:35 04/03/17 05:35 Laboratory Tests 04/03/17 05:35 Calcium 8.1 L Phosphorus 2.4 L D Magnesium 2.1 Albumin 2.5 L Current Medications Amiodarone HCl (Cordarone -) 400 mg PO DAILY [facility] Last Admin: 04/02/17 12:41 Dose: 400 mg Atorvastatin Calcium (Lipitor -) 80 mg NGT HS [facility] Last Admin: 04/02/17 22:03 Dose: 80 mg Chlorhexidine Gluconate (Hibiclens For Decolonization -) 1 applic TP HS [facility] Last Admin: 04/02/17 23:02 Dose: 1 applic Chlorhexidine Gluconate (Peridex -) 15 ml MM BID [facility] Last Admin: 04/02/17 22:05 Dose: 15 ml Furosemide (Lasix Injection -) 80 mg IVPUSH BID@0600,1400 [facility] Last Admin: 04/03/17 05:58 Dose: 80 mg Heparin Sodium (Porcine) (Heparin -) 1,000 unit IVPUSH PRN PRN PRN Reason: Heparin Last Admin: 03/28/17 10:59 Dose: 1,000 unit Heparin Sodium (Porcine) (Heparin -) 5,000 unit IVPUSH PRN PRN PRN Reason: Heparin Hydrocortisone Sodium Succinate (Solu-Cortef -) 50 mg IVPB DAILY [facility] Last Admin: 04/02/17 12:52 Dose: 50 mg Heparin Sodium (Porcine) 25, (000 unit/ Sodium Chloride) 500 mls @ 20 mls/hr IV TITR SAARH; 1,000 UNIT/HR PRN Reason: Protocol Last Admin: 04/01/17 15:49 Dose: 26 mls/hr Propofol (Diprivan -) 100 mls @ 4.38 mls/hr IVPB TITR SARAH; 5 MCG/KG/MIN PRN Reason: Protocol Last Admin: 04/02/17 20:10 Dose: 30 mls/hr Norepinephrine Bitartrate 8, (000 mcg/ Dextrose) 258 mls @ 15.48 mls/hr IV TITR SARAH; 8 MCG/MIN PRN Reason: Protocol Last Admin: 04/03/17 06:03 Dose: 18.8 mls/hr Dopamine HCl 800,000 mcg/ (Sodium Chloride) 250 mls @ 22.98 mls/hr IV TITR SARAH ; 8 MCG/KG/MIN PRN Reason: Protocol Last Admin: 04/03/17 06:04 Dose: 14.4 mls/hr Potassium Phosphate 15 mm/ (Dextrose) 255 mls @ 62.5 mls/hr IVPB ONCE ONE Stop: 04/03/17 14:15 Insulin Aspart (Novolog Vial Sliding Scale -) 1 vial SQ ACHS SARAH PRN Reason: Protocol Last Admin: 04/03/17 07:06 Dose: 2 units Pantoprazole Sodium (Protonix 40mg Ivpb (Pre-Docked)) 40 mg IVPB DAILY [facility] Last Admin: 04/02/17 12:41 Dose: 40 mg Piperacillin Sod/Tazobactam Sod (Zosyn 2.25gm Ivpb (Pre-Docked)) 2.25 gm IVPB Q8H-IV [facility] Last Admin: 04/03/17 02:00 Dose: 2.25 gm A/P 76 year old Gentleman with PMhx of CKD, CHF, Hypertension, Afib, Obesity, Prostate Ca who presented s/p cardiac arrest with SUJATA and Volume overload #Non-Oliguric Acute on Chronic renal insufficiency with volume overload s/p Hd yesterday with 3.7kg UF dialysis catheter is now removed, will trend renal function and urine output next 48-72 hours continue IV Lasix and titrate to achieve good urine output keep CVP > 10-12 and MAP > 65 Dose all meds for Cr Cl less then 15 #Acute Anemia s/p 2 prbc transfusion yesterday to get additional blood today continue to transfuse as per ICU protocol s/p Epogen 98697 units yesterday #Hypophophatemia Give IV K-phos todday repeat levels in PM trend daily #Sepsis/Shock/Resp Failure Treatment as per ICU Thank you Garry Drew DO
[2017-04-03] MEDS: HYDROCORTISONE SOD SUCCINATE 100 MG/2 ML VIAL IVPB SCH (12:28)
[2017-04-03] MEDS: CHLORHEXIDINE GLUCONATE 0.12% 15ML CUP MM SCH ×2 (12:28→23:00)
[2017-04-03] MEDS: PANTOPRAZOLE SODIUM 40 MG/100 ML PRE-DOCKED IVPB SCH (12:28)
[2017-04-03] MEDS: AMIODARONE HCL 200 MG TABLET (FP) PO SCH (12:28)
[2017-04-03] MEDS ORDERED: POTASSIUM PHOSPHATE 15 MM in DEXTROSE 5%-WATER - 250 ML IVPB ONE (13:00)
--- NOTE | 2017-04-03 13:23 | PN ---
Progress Note, Physician Chief Complaint: ID Remains pressor support Renal note reviewed Zosyn & Vanco dosing sporatically - Current Medication List Current Medications: Active Medications Amiodarone HCl (Cordarone -) 400 mg PO DAILY [facility] Last Admin: 04/03/17 12:28 Dose: 400 mg Atorvastatin Calcium (Lipitor -) 80 mg NGT HS [facility] Last Admin: 04/02/17 22:03 Dose: 80 mg Chlorhexidine Gluconate (Hibiclens For Decolonization -) 1 applic TP HS [facility] Last Admin: 04/02/17 23:02 Dose: 1 applic Chlorhexidine Gluconate (Peridex -) 15 ml MM BID [facility] Last Admin: 04/03/17 12:28 Dose: 15 ml Furosemide (Lasix Injection -) 80 mg IVPUSH BID@0600,1400 [facility] Last Admin: 04/03/17 05:58 Dose: 80 mg Heparin Sodium (Porcine) (Heparin -) 1,000 unit IVPUSH PRN PRN PRN Reason: Heparin Last Admin: 03/28/17 10:59 Dose: 1,000 unit Heparin Sodium (Porcine) (Heparin -) 5,000 unit IVPUSH PRN PRN PRN Reason: Heparin Hydrocortisone Sodium Succinate (Solu-Cortef -) 50 mg IVPB DAILY [facility] Last Admin: 04/03/17 12:28 Dose: 50 mg Heparin Sodium (Porcine) 25, (000 unit/ Sodium Chloride) 500 mls @ 20 mls/hr IV TITR SARAH; 1,000 UNIT/HR PRN Reason: Protocol Last Admin: 04/01/17 15:49 Dose: 26 mls/hr Propofol (Diprivan -) 100 mls @ 4.38 mls/hr IVPB TITR SARAH; 5 MCG/KG/MIN PRN Reason: Protocol Last Admin: 04/02/17 20:10 Dose: 30 mls/hr Norepinephrine Bitartrate 8, (000 mcg/ Dextrose) 258 mls @ 15.48 mls/hr IV TITR SARAH; 8 MCG/MIN PRN Reason: Protocol Last Admin: 04/03/17 06:03 Dose: 18.8 mls/hr Dopamine HCl 800,000 mcg/ (Sodium Chloride) 250 mls @ 22.98 mls/hr IV TITR SARAH ; 8 MCG/KG/MIN PRN Reason: Protocol Last Admin: 04/03/17 06:04 Dose: 14.4 mls/hr Potassium Phosphate 15 mm/ (Dextrose) 255 mls @ 62.5 mls/hr IVPB ONCE ONE Stop: 04/03/17 17:04 Insulin Aspart (Novolog Vial Sliding Scale -) 1 vial SQ ACHS [facility] PRN Reason: Protocol Last Admin: 04/03/17 07:06 Dose: 2 units Pantoprazole Sodium (Protonix 40mg Ivpb (Pre-Docked)) 40 mg IVPB DAILY [facility] Last Admin: 04/03/17 12:28 Dose: 40 mg Piperacillin Sod/Tazobactam Sod (Zosyn 2.25gm Ivpb (Pre-Docked)) 2.25 gm IVPB Q8H-IV [facility] Last Admin: 04/03/17 12:28 Dose: 2.25 gm - Objective Vital Signs: Vital Signs Temperature 97.8 F 04/03/17 12:00 Pulse Rate 87 04/03/17 12:00 Respiratory Rate 25 H 04/03/17 12:00 Blood Pressure 100/62 04/03/17 12:00 O2 Sat by Pulse Oximetry (%) 100 04/02/17 19:30 Labs: CBC, BMP 04/03/17 05:35 04/03/17 05:35 INR, PTT INR 1.25 (0.82-1.09) H 04/02/17 05:30 Assessment/Plan Microbiology 04/01/17 09:00 Urine - Urine Ridley Urine Culture - Final Yeast Like Organism 03/31/17 22:00 Stool Clostridium difficile Antigen (IRENA) - Final 03/31/17 22:00 Stool Clostridium difficile Toxin Assay - Final 04/01/17 09:00 Sputum - Endotrachea Suction/Ventilator Sputum Culture - Preliminary S Aureus 03/31/17 16:30 Blood - Peripheral Venous Blood Culture - Preliminary NO GROWTH OBTAINED AFTER 48 HOURS, INCUBATION TO CONTINUE FOR 3 DAYS. 03/31/17 14:00 Blood - Peripheral Venous Blood Culture - Preliminary NO GROWTH OBTAINED AFTER 48 HOURS, INCUBATION TO CONTINUE FOR 3 DAYS. Laboratory Tests 04/02/17 04/03/17 04/03/17 06:00 05:35 05:35 WBC 14.5 H Hgb 6.9 L* Hct 20.7 L Plt Count 187 Creat Clearance w eGFR 26.31 Random Vancomycin 19.652 Assessment Respiratory failure Anemia Opacified left lung ? PNA ( MRSA) WBC coming down Cardiac arrest Plan In view of the WBC count ( ? steroids) will leave [place] through the weekend Alba BENITEZ
--- NOTE | 2017-04-03 15:43 | PN ---
Physical Exam: SUBJECTIVE: Patient seen and examined. sedation decreased, patient awake. at bedside. HD catheter removed yesterday evening post-dialysis. s/p trach placement yesterday, required additional pressors during procedure. OBJECTIVE: Vital Signs Period Temp Pulse Resp BP Sys/Krishnan Pulse Ox Last 24 Hr 97.8 F-98.7 F 73-89 20-30 84-123/50-81 100 EYES: sluggish pupillary resposnce, sclera anicteric, conjunctiva clear. No ptosis. ENT: trach in place with scant bleeding, frothy oral secretion, thick secretions in trach, nG tube, dry mucous membranes. no bleeding at catheter removal site LUNGS: diffuse rhonchi R>L, quiet at bases. CV: distant heart sounds, 2+ radial pulses, nonpalpable dorsalis pulses due to extensive pitting edema, extremities warm, no cyanosis, no skin mottling ABDOMEN: morbidly obese, firm in lateral and lower quadrants due to edema, anasarca, normoactive bowel sounds. EXTREMITIES: pitting edema in extremities, thickened hyperpigmented skin in b/l LE L>R, laceration 4th left toe dry without any discharge. 3+ pitting edema b/l LE upto abdomen Ridley catheter in place Laboratory Results - last 24 hr 04/02/17 04/02/17 04/02/17 07:35 09:15 22:57 WBC RBC Hgb Hct MCV MCHC RDW Plt Count MPV Neutrophils % Lymphocytes % Monocytes % Eosinophils % Basophils % Puncture Site ABG pH ABG pCO2 at Pt Temp ABG pO2 at Pt Temp ABG HCO3 ABG O2 Sat (Measured) ABG O2 Content ABG Base Excess Brian Test O2 Delivery Device Oxygen Flow Rate Vent Mode Vent Rate Mechanical Rate PEEP Pressure Support Vent Sodium Potassium Chloride Carbon Dioxide Anion Gap BUN Creatinine Creat Clearance w eGFR POC Glucometer 210.74277 Random Glucose Calcium Phosphorus Magnesium Total Bilirubin AST ALT Alkaline Phosphatase Total Protein Albumin Blood Type AB POSITIVE AB POSITIVE Antibody Screen Negative Crossmatch See Detail See Detail 04/03/17 04/03/17 04/03/17 05:35 05:35 06:05 WBC 14.5 H RBC 2.56 L Hgb 6.9 L* Hct 20.7 L MCV 80.9 MCHC 33.2 RDW 18.6 H Plt Count 187 MPV 8.7 Neutrophils % 85.8 H Lymphocytes % 5.7 L D Monocytes % 7.6 Eosinophils % 0.7 D Basophils % 0.2 Puncture Site ABG pH ABG pCO2 at Pt Temp ABG pO2 at Pt Temp ABG HCO3 ABG O2 Sat (Measured) ABG O2 Content ABG Base Excess Brian Test O2 Delivery Device Oxygen Flow Rate Vent Mode Vent Rate Mechanical Rate PEEP Pressure Support Vent Sodium 137 Potassium 3.6 Chloride 97 L Carbon Dioxide 30 Anion Gap 10 BUN 47 H D Creatinine 2.4 H Creat Clearance w eGFR 26.31 POC Glucometer 193.76520 Random Glucose 159 H Calcium 8.1 L Phosphorus 2.4 L D Magnesium 2.1 Total Bilirubin 0.8 D AST 22 D ALT 16 Alkaline Phosphatase 63 Total Protein 5.5 L Albumin 2.5 L Blood Type Antibody Screen Crossmatch 04/03/17 04/03/17 07:00 12:35 WBC RBC Hgb Hct MCV MCHC RDW Plt Count MPV Neutrophils % Lymphocytes % Monocytes % Eosinophils % Basophils % Puncture Site Right radial ABG pH 7.49 H ABG pCO2 at Pt Temp 37.0 ABG pO2 at Pt Temp 78.2 D ABG HCO3 28.2 H ABG O2 Sat (Measured) 97.2 ABG O2 Content 11.2 L ABG Base Excess 4.9 H Brian Test Positive O2 Delivery Device Vent Oxygen Flow Rate 40% Vent Mode A/c Vent Rate 16 Mechanical Rate Yes PEEP 5.0 Pressure Support Vent 380 Sodium Potassium Chloride Carbon Dioxide Anion Gap BUN Creatinine Creat Clearance w eGFR POC Glucometer 230.49920 Random Glucose Calcium Phosphorus Magnesium Total Bilirubin AST ALT Alkaline Phosphatase Total Protein Albumin Blood Type Antibody Screen Crossmatch Active Medications Generic Name Dose Route Start Last Admin Trade Name Freq PRN Reason Stop Dose Admin Amiodarone HCl 400 mg 03/26/17 10:00 04/03/17 12:28 Cordarone - PO 400 mg DAILY SARAH Administration Atorvastatin Calcium 80 mg 03/18/17 09:45 04/02/17 22:03 Lipitor - NGT 80 mg HS SARAH Administration Chlorhexidine Gluconate 1 applic 03/17/17 22:00 04/02/17 23:02 Hibiclens For Decolonization - TP 1 applic HS SARAH Administration Chlorhexidine Gluconate 15 ml 03/18/17 22:15 04/03/17 12:28 Peridex - MM 15 ml BID SARAH Administration Furosemide 80 mg 03/30/17 14:00 04/03/17 05:58 Lasix Injection - IVPUSH 80 mg BID@0600,1400 SARAH Administration Heparin Sodium (Porcine) 1,000 unit 03/22/17 08:38 03/28/17 10:59 Heparin - IVPUSH 1,000 unit PRN PRN Administration Heparin Heparin Sodium (Porcine) 5,000 unit 03/22/17 08:38 Heparin - IVPUSH PRN PRN Heparin Hydrocortisone Sodium Succinate 50 mg 04/02/17 10:00 04/03/17 12:28 Solu-Cortef - IVPB 50 mg DAILY SARAH Administration Heparin Sodium (Porcine) 25, 500 mls @ 20 mls/hr 03/22/17 08:45 04/01/17 15:49 000 unit/ Sodium Chloride IV 26 mls/hr TITR SARAH Administration Protocol 1,000 UNIT/HR Propofol 100 mls @ 4.38 mls/hr 03/23/17 12:00 04/02/17 20:10 Diprivan - IVPB 30 mls/hr TITR SARAH Administration Protocol 5 MCG/KG/MIN Norepinephrine Bitartrate 8, 258 mls @ 15.48 mls/hr 03/30/17 08:15 04/03/17 06: 03 000 mcg/ Dextrose IV 18.8 mls/hr TITR SARAH Administration Protocol 8 MCG/MIN Dopamine HCl 800,000 mcg/ 250 mls @ 22.98 mls/hr 03/31/17 11:00 04/03/17 06:04 Sodium Chloride IV 14.4 mls/hr TITR SARAH Administration Protocol 8 MCG/KG/MIN Potassium Phosphate 15 mm/ 255 mls @ 62.5 mls/hr 04/03/17 13:00 Dextrose IVPB 04/03/17 17:04 ONCE ONE Insulin Aspart 1 vial 03/24/17 07:00 04/03/17 07:06 Novolog Vial Sliding Scale - SQ 2 units ACHS SARAH Administration Protocol Pantoprazole Sodium 40 mg 03/18/17 10:00 04/03/17 12:28 Protonix 40mg Ivpb (Pre-Docked) IVPB 40 mg DAILY SARAH Administration Piperacillin Sod/Tazobactam Sod 2.25 gm 04/01/17 10:00 04/03/17 12:28 Zosyn 2.25gm Ivpb (Pre-Docked) IVPB 2.25 gm Q8H-IV SARAH Administration ASSESSMENT/PLAN: 76 yr old man with extensive cardiac and pulmonary history now with renal insufficiency and sepsis s/p cardiac arrest. - hgb/hct again low without overt signs of bleeding, will transfuse again today Pulmonary s/p trach placement 04/02 opacification of left lung, effusion in right taper FiO2 to maintain o2 sat 90% currently FiO2 40% MRSA in sputum Cardiovascular Hypotensive requiring 2 pressors dopamine 8mcg/hr + norepi 8 mcg/hr attempt to wean, maintain MAP >65 amiodarone 400mg po qdaily afib - paced rhythm (biventricular pacemaker) heparin drip for anticoagulation - held hydrocortisone initiated 03/22 for refractory shock following cardiac arrest, slow taper off HLD: lipitor 80mg HS po consult: Dr. Apple Infectious Disease wbc count trending down Vanco 125 mg po q6hr - d/c as c.diff toxin assay negative zosyn 2.25gm IVPB q8hr IV, continue abx as wbc is trending down consult: Dr. Willis Renal oliguiric renal insufficiency with volume overload, avoid adding additional fluids when possible plan transfusion d/t low Hgb/hct, maintain hgb >7.0 Urine output decreased, continue lasix BID 80mg IVpb with dialysis cather removed, monitor elecrolytes and urine output for further need of HD replete phosphate/potassium today consult: Hematological low hgb/hct, minimal bleeding around trach, minimal blood loss during trach placement yesterday will check for stool occult to r/o GIB, no other source of bleeding noted. hold heparin in light of acute anemia transfuse 2 units prbc's epogen administered yesterday GI tube feeding; Glucerna 1.5 protonix daily for prophylaxis banana flakes daily for loose stools Neuro blinks spontaneously, does not follow commands. Endocrine DM II, HgbA1c 6.4 Glucerna feeds with NISS DVT: medical AC held due to acute anemia, edema in b/l le unable to use SCD's Diet: tube feeding Visit type - Emergency Visit Emergency Visit: No - New Patient This patient is new to me today: No - Critical Care Critical Care patient: Yes Total Critical Care Time (in minutes): 42 Critical Care Statement: The care of this patient involved high complexity decision making to prevent further life threatening deterioration of the patient 's condition and/or to evalute & treat vital organ system(s) failure or risk of failure.
[2017-04-03 16:21] LABS: COCKROFT - GAULT 50.22; CREATININE 2.6 mg/dL (0.7-1.3); PHOSPHOROUS 2.8 mg/dL (2.5-4.9)
[2017-04-03 16:58] LABS: BASOPHIL 0.3 % (0-2.0); EOSINOPHIL 1.1 % (0-4.5); MCH 26.7 pg (25.7-33.7); MCHC 32.8 g/dl (32.0-35.9); MEAN CELL VOLUME 81.4 fl (80-96); MEAN PLT VOLUME 8.6 fl (7.5-11.1); NEUTROPHILS 87.1 % (42.8-82.8); PLATELET COUNT 168 K/MM3 (134-434); RDW 18.5 % (11.9-15.9); WHITE BLOOD COUNT 15.4 K/mm3 (4.0-10.0)
[2017-04-03] MEDS: PROPOFOL 100 ML IVPB SCH (18:48)
--- NOTE | 2017-04-03 19:18 | PN ---
Teaching Attending Note Name of Resident: Cleve Bouregois ATTENDING PHYSICIAN STATEMENT I saw and evaluated the patient. I reviewed the resident's note and discussed the case with the resident. I agree with the resident's findings and plan as documented. SUBJECTIVE: no events over night OBJECTIVE: sedated , trached. L IJ, trach. R IJ removed CV: RRR, no MRG Lungs ;rales at bases Abd : less distended compared to yesterday . tympanic . Abd wall edema 1+ Ext : 2+ pitting edema on LE , Chronic hyperpigmentation and skin thickening. ASSESSMENT AND PLAN: 76 y/o man with h/o Severe cardiomypathy( non ischemic ) ,with severely reduced EF, and PULm HTN, Diastolic dysfunction , A fib on AC, who presented with cardiac arrest (V fib ) from his intermediate 1- S/P cardiac arrest: due to severe R sided cardiomyopathy. - cont pressor support . taper as tolerated - cont Amio 400 daily - cont hydrocortisone taper 2- Severe non-ischemic cardiomypoathy, with acute on chronic systolic and diastolic heart failure - managing volume with HD - cont IV lasix - monitor I&Os 3- Acute hypoxic resp failure :due to CHF , Left PNA ( sputum cx with MRSA ) - cont zosyn. and vanco - vanco level tomorrow - cont Vent support .had tracheostomy today 4- Acute on chronic anemia: multifactorial due to bleeding from IJ site, and CKD , blood withdrawal . unlikely has GI bleed or retroperitoneal bleed - transfuse today - epogen - fecal OB - monitor - hold heparin gtt ( already on hold for trach) 5- A fib: rate is controlled , - monitor rate 5-SUJATA on CKD : cont HD. 6- Diarrhea .dc po vanco . toxin neg DVT px: SCDS
[2017-04-03] MEDS: ATORVASTATIN CA 80 MG TABLET (FP) NGT SCH (22:59)
[2017-04-03] MEDS: CHLORHEXIDINE GLUCONATE 4% CLEANSER FOR DECOLONIZATION TP SCH (22:59)
[2017-04-03] MEDS: SCOPOLAMINE HYDROBROMIDE 1 PATCH PATCH.TD72 TD SCH (23:00)
[2017-04-04 00:27] LABS: BASOPHIL 0.2 % (0-2.0); EOSINOPHIL 0.4 % (0-4.5); MCH 27.9 pg (25.7-33.7); MCHC 33.7 g/dl (32.0-35.9); MEAN CELL VOLUME 82.8 fl (80-96); MEAN PLT VOLUME 8.7 fl (7.5-11.1); NEUTROPHILS 85.7 % (42.8-82.8); PLATELET COUNT 175 K/MM3 (134-434); RDW 18.5 % (11.9-15.9); WHITE BLOOD COUNT 16.7 K/mm3 (4.0-10.0)
[2017-04-04] MEDS: INSULIN SLIDING SCALE (NOVOLOG) 1 VIAL SQ SCH ×5 (00:33→22:41)
[2017-04-04] MEDS: PIPERACILLIN/TAZOB 2.25 GM/50 ML PRE-DOCKED BAG IVPB SCH ×3 (01:42→18:30)
[2017-04-04 06:16] LABS: BASOPHIL 0.3 % (0-2.0); EOSINOPHIL 1.1 % (0-4.5); MCHC 34.2 g/dl (32.0-35.9); MEAN CELL VOLUME 81.8 fl (80-96); MEAN PLT VOLUME 8.4 fl (7.5-11.1); PLATELET COUNT 181 K/MM3 (134-434); RDW 18.4 % (11.9-15.9); WHITE BLOOD COUNT 14.1 K/mm3 (4.0-10.0)
[2017-04-04 06:37] LABS: ALBUMIN 2.5 g/dl (3.4-5.0)
[2017-04-04 06:42] LABS: CALCIUM 7.9 mg/dL (8.5-10.1); COCKROFT - GAULT 46.63; CREATININE 2.8 mg/dL (0.7-1.3); TOT PROT 5.6 g/dl (6.4-8.2)
[2017-04-04] MEDS: BANATROL PLUS POWDER PACKET PO SCH ×3 (06:59→22:34)
[2017-04-04] MEDS: FUROSEMIDE 40 MG/4 ML INJECTABLE VIAL IVPUSH SCH ×2 (07:00→15:00)
[2017-04-04 07:44] LABS: ARTERIAL BLD GAS O2 SATURATION 99.3 % (90-98.9); ARTERIAL BLOOD GAS HCO3 26.2 meq/L (22-26)
[2017-04-04 07:45] LABS: ALLENS TEST POSITIVE; ART PUNCT SITE RIGHT RADIAL; MECH. VENT. YES; PT. ON O2? YES; TYPE OF O2 VENT
[2017-04-04 07:46] LABS: VENT RATE 16; VT/PRESS 380
[2017-04-04 07:47] LABS: ARTERIAL BLOOD GAS pH 7.47 (7.35-7.45)
--- NOTE | 2017-04-04 08:33 | PN ---
Progress Note (short form) - Note Progress Note: remains intubated remains on pressors Vital Signs Period Temp Pulse Resp BP Sys/Krishnan Pulse Ox Last 24 Hr 97.8 F-98.4 F 77-90 18-28 94-127/57-76 92-93 cor-rrr lungs decreased bs on left abd obese, nt ext +edema brooks +cvp CBC, BMP 04/04/17 05:15 04/04/17 05:15 cxray left lung opacification Microbiology 03/31/17 16:30 Blood Culture - Preliminary Blood - Peripheral Venous NO GROWTH OBTAINED AFTER 72 HOURS, INCUBATION TO CONTINUE FOR 2 DAYS. 04/01/17 09:00 Sputum Culture - Final Sputum - Endotrachea Suction/Ventilator Mr S Aureus 03/31/17 14:00 Blood Culture - Preliminary Blood - Peripheral Venous NO GROWTH OBTAINED AFTER 72 HOURS, INCUBATION TO CONTINUE FOR 2 DAYS. Current Medications Amiodarone HCl (Cordarone -) 400 mg PO DAILY [facility] Last Admin: 04/03/17 12:28 Dose: 400 mg Atorvastatin Calcium (Lipitor -) 80 mg NGT HS [facility] Last Admin: 04/03/17 22:59 Dose: 80 mg Chlorhexidine Gluconate (Hibiclens For Decolonization -) 1 applic TP HS [facility] Last Admin: 04/03/17 22:59 Dose: 1 applic Chlorhexidine Gluconate (Peridex -) 15 ml MM BID [facility] Last Admin: 04/03/17 23:00 Dose: 15 ml Furosemide (Lasix Injection -) 80 mg IVPUSH BID@0600,1400 [facility] Last Admin: 04/04/17 07:00 Dose: 80 mg Hydrocortisone Sodium Succinate (Solu-Cortef -) 50 mg IVPB DAILY [facility] Last Admin: 04/03/17 12:28 Dose: 50 mg Propofol (Diprivan -) 100 mls @ 4.38 mls/hr IVPB TITR SARAH; 5 MCG/KG/MIN PRN Reason: Protocol Last Admin: 04/03/17 18:48 Dose: 29.994 mls/hr Norepinephrine Bitartrate 8, (000 mcg/ Dextrose) 258 mls @ 15.48 mls/hr IV TITR SARAH; 8 MCG/MIN PRN Reason: Protocol Last Admin: 04/03/17 22:59 Dose: Not Given Dopamine HCl 800,000 mcg/ (Sodium Chloride) 250 mls @ 22.98 mls/hr IV TITR SARAH ; 8 MCG/KG/MIN PRN Reason: Protocol Last Admin: 04/03/17 22:59 Dose: Not Given Insulin Aspart (Novolog Vial Sliding Scale -) 1 vial SQ ACHS [facility] PRN Reason: Protocol Last Admin: 04/04/17 07:01 Dose: Not Given Pantoprazole Sodium (Protonix 40mg Ivpb (Pre-Docked)) 40 mg IVPB DAILY [facility] Last Admin: 04/03/17 12:28 Dose: 40 mg Piperacillin Sod/Tazobactam Sod (Zosyn 2.25gm Ivpb (Pre-Docked)) 2.25 gm IVPB Q8H-IV [facility] Last Admin: 04/04/17 01:42 Dose: 2.25 gm Scopolamine HBr (Transderm-Scop -) 1 patch TD Q3D@2200 [facility] Last Admin: 04/03/17 23:00 Dose: 1 patch a/p left lung opacification- ?fluid, ?atelectasis- on vanco/zosyn- check vanco level , redose less then 15 s/p code resp failure SUJATA/CKD- on HD cardiomyopathy/PPM Problem List - Problems (1) Cardiac arrest Code(s): I46.9 - CARDIAC ARREST, CAUSE UNSPECIFIED (2) Pneumonia Code(s): J18.9 - PNEUMONIA, UNSPECIFIED ORGANISM (3) CKD (chronic kidney disease) Code(s): N18.9 - CHRONIC KIDNEY DISEASE, UNSPECIFIED Qualifiers: Qualified Code(s): N18.4 - Chronic kidney disease, stage 4 (severe) (4) Cardiomyopathy Code(s): I42.9 - CARDIOMYOPATHY, UNSPECIFIED
--- NOTE | 2017-04-04 08:36 | PN ---
Progress Note (short form) - Note Progress Note: Subjective:unable to obtain hx but shakes his head no to pain. Objective: Vital Signs: Last Vital Signs Temp Pulse Resp BP Pulse Ox 98 F 86 22 94/57 93 L 04/04/17 05:00 04/04/17 06:00 04/04/17 06:30 04/04/17 06:00 04/03/17 21:00 I&O: Intake & Output 04/01/17 04/02/17 04/03/17 04/04/17 23:59 23:59 23:59 23:59 Intake Total 2777 1783 1766.6 408 Output Total 50 355 100 100 Balance 2727 1428 1666.6 308 Weight 345 lb 14.484 oz 340 lb 3.2 oz 334 lb 5 oz 339 lb 11.717 oz Laboratory Results - last 24 hr 04/02/17 04/03/17 04/03/17 09:15 12:35 15:51 WBC RBC Hgb Hct MCV MCHC RDW Plt Count MPV Neutrophils % Lymphocytes % Monocytes % Eosinophils % Basophils % Puncture Site ABG pH ABG pCO2 at Pt Temp ABG pO2 at Pt Temp ABG HCO3 ABG O2 Sat (Measured) ABG O2 Content ABG Base Excess Brian Test O2 Delivery Device Oxygen Flow Rate Vent Mode Vent Rate Mechanical Rate PEEP Pressure Support Vent Sodium 138 Potassium 3.5 Chloride 97 L Carbon Dioxide 29 Anion Gap 12 BUN 49 H Creatinine 2.6 H Creat Clearance w eGFR POC Glucometer 230.64945 Random Glucose 122 H D Calcium 8.0 L Phosphorus 2.8 Total Bilirubin AST ALT Alkaline Phosphatase Total Protein Albumin Blood Type AB POSITIVE Crossmatch See Detail 04/03/17 04/03/17 04/03/17 15:51 16:49 22:15 WBC 15.4 H 16.7 H RBC 2.82 L 2.99 L Hgb 7.5 L 8.3 L D Hct 23.0 L 24.8 L MCV 81.4 82.8 MCHC 32.8 33.7 RDW 18.5 H 18.5 H Plt Count 168 175 MPV 8.6 8.7 Neutrophils % 87.1 H 85.7 H Lymphocytes % 3.3 L D 4.5 L D Monocytes % 8.2 9.2 Eosinophils % 1.1 0.4 Basophils % 0.3 0.2 Puncture Site ABG pH ABG pCO2 at Pt Temp ABG pO2 at Pt Temp ABG HCO3 ABG O2 Sat (Measured) ABG O2 Content ABG Base Excess Brian Test O2 Delivery Device Oxygen Flow Rate Vent Mode Vent Rate Mechanical Rate PEEP Pressure Support Vent Sodium Potassium Chloride Carbon Dioxide Anion Gap BUN Creatinine Creat Clearance w eGFR POC Glucometer 170.22058 Random Glucose Calcium Phosphorus Total Bilirubin AST ALT Alkaline Phosphatase Total Protein Albumin Blood Type Crossmatch 04/04/17 04/04/17 04/04/17 00:27 05:15 05:15 WBC 14.1 H RBC 2.93 L Hgb 8.2 L Hct 24.0 L MCV 81.8 MCHC 34.2 RDW 18.4 H Plt Count 181 MPV 8.4 Neutrophils % 83.0 H Lymphocytes % 6.0 L D Monocytes % 9.6 Eosinophils % 1.1 D Basophils % 0.3 Puncture Site ABG pH ABG pCO2 at Pt Temp ABG pO2 at Pt Temp ABG HCO3 ABG O2 Sat (Measured) ABG O2 Content ABG Base Excess Brian Test O2 Delivery Device Oxygen Flow Rate Vent Mode Vent Rate Mechanical Rate PEEP Pressure Support Vent Sodium 137 Potassium 3.5 Chloride 96 L Carbon Dioxide 28 Anion Gap 13 BUN 52 H Creatinine 2.8 H Creat Clearance w eGFR 22.03 POC Glucometer 180.78785 Random Glucose 119 H Calcium 7.9 L Phosphorus Total Bilirubin 1.0 D AST 22 ALT 16 Alkaline Phosphatase 65 Total Protein 5.6 L Albumin 2.5 L Blood Type Crossmatch 04/04/17 07:20 WBC RBC Hgb Hct MCV MCHC RDW Plt Count MPV Neutrophils % Lymphocytes % Monocytes % Eosinophils % Basophils % Puncture Site Right radial ABG pH 7.47 H ABG pCO2 at Pt Temp 36.3 ABG pO2 at Pt Temp 124.0 H D ABG HCO3 26.2 H ABG O2 Sat (Measured) 99.3 H ABG O2 Content 12.2 L ABG Base Excess 3.0 H Brian Test Positive O2 Delivery Device Vent Oxygen Flow Rate 55% Vent Mode A/c Vent Rate 16 Mechanical Rate Yes PEEP 5.0 Pressure Support Vent 380 Sodium Potassium Chloride Carbon Dioxide Anion Gap BUN Creatinine Creat Clearance w eGFR POC Glucometer Random Glucose Calcium Phosphorus Total Bilirubin AST ALT Alkaline Phosphatase Total Protein Albumin Blood Type Crossmatch Physical Exam: sedated , trached. opens eyes and shakes head . L IJ, trach. CV: RRR, no MRG Lungs ;clear anteriorly Abd : less distended compared to yesterday . tympanic . Abd wall edema 1+ . hypoactive BS Ext : 2+ pitting edema on LE , Chronic hyperpigmentation and skin thickening. ASSESSMENT AND PLAN: 76 y/o man with h/o Severe cardiomypathy( non ischemic ) ,with severely reduced EF, and PULm HTN, Diastolic dysfunction , A fib on AC, who presented with cardiac arrest (V fib ) from his care home 1- S/P cardiac arrest: due to severe R sided cardiomyopathy. - cont pressor support( dopamine 5/hr, and levophed 10/min ) . CVP 18, MAP 81. taper as tolerated - cont Amio 400 daily - cont hydrocortisone taper , probably can decrease further 2- Severe non-ischemic cardiomypoathy, with acute on chronic systolic and diastolic heart failure -cxray with worsening L hemithorax today. he is in Positive fluid balance, no Hd yesterday - ? HD today - cont IV lasix - monitor I&Os 3- Acute hypoxic resp failure :due to CHF , Left PNA ( sputum cx with MRSA ) - leukocytosis improved . sputum cx MRSA twice . no G- seen . - zosyn might be stopped . - check vanco randome level today . and dose accordingly - cont Vent support .( fio2 requirements increased 55%) 4- Acute on chronic anemia: multifactorial due to bleeding from IJ site, and CKD , blood draws. unlikely has GI bleed or retroperitoneal bleed - stable HB today . no signs of active bleed - fecal OB + . monitor - cont to hold heparin gtt 5- A fib: rate is controlled , - monitor rate 5-SUJATA on CKD : cont HD. DVT px: SCDS Visit type - Emergency Visit Emergency Visit: Yes ED Registration Date: 03/17/17 Care time: The patient presented to the Emergency Department on the above date and was hospitalized for further evaluation of their emergent condition. - New Patient This patient is new to me today: No - Critical Care Critical Care patient: Yes Total Critical Care Time (in minutes): 25
[2017-04-04] MEDS: PANTOPRAZOLE SODIUM 40 MG/100 ML PRE-DOCKED IVPB SCH (09:14)
[2017-04-04] MEDS: HYDROCORTISONE SOD SUCCINATE 100 MG/2 ML VIAL IVPB SCH (09:19)
[2017-04-04] MEDS: CHLORHEXIDINE GLUCONATE 0.12% 15ML CUP MM SCH ×2 (09:19→22:34)
[2017-04-04] MEDS: AMIODARONE HCL 200 MG TABLET (FP) PO SCH (09:19)
--- NOTE | 2017-04-04 09:49 | PN ---
Progress Note, Physician History of Present Illness: seen and examined today in nad. opens eyes, follows some commands. no overnight events. no new complaints. - Current Medication List Current Medications: Active Medications Amiodarone HCl (Cordarone -) 400 mg PO DAILY [facility] Last Admin: 04/04/17 09:19 Dose: 400 mg Atorvastatin Calcium (Lipitor -) 80 mg NGT HS [facility] Last Admin: 04/03/17 22:59 Dose: 80 mg Chlorhexidine Gluconate (Hibiclens For Decolonization -) 1 applic TP HS [facility] Last Admin: 04/03/17 22:59 Dose: 1 applic Chlorhexidine Gluconate (Peridex -) 15 ml MM BID [facility] Last Admin: 04/04/17 09:19 Dose: 15 ml Furosemide (Lasix Injection -) 80 mg IVPUSH BID@0600,1400 [facility] Last Admin: 04/04/17 07:00 Dose: 80 mg Hydrocortisone Sodium Succinate (Solu-Cortef -) 50 mg IVPB DAILY [facility] Last Admin: 04/04/17 09:19 Dose: 50 mg Propofol (Diprivan -) 100 mls @ 4.38 mls/hr IVPB TITR SARAH; 5 MCG/KG/MIN PRN Reason: Protocol Last Admin: 04/03/17 18:48 Dose: 29.994 mls/hr Norepinephrine Bitartrate 8, (000 mcg/ Dextrose) 258 mls @ 15.48 mls/hr IV TITR SARAH; 8 MCG/MIN PRN Reason: Protocol Last Admin: 04/03/17 22:59 Dose: Not Given Dopamine HCl 800,000 mcg/ (Sodium Chloride) 250 mls @ 22.98 mls/hr IV TITR SARAH ; 8 MCG/KG/MIN PRN Reason: Protocol Last Admin: 04/03/17 22:59 Dose: Not Given Insulin Aspart (Novolog Vial Sliding Scale -) 1 vial SQ ACHS SARAH PRN Reason: Protocol Last Admin: 04/04/17 07:01 Dose: Not Given Pantoprazole Sodium (Protonix 40mg Ivpb (Pre-Docked)) 40 mg IVPB DAILY [facility] Last Admin: 04/04/17 09:14 Dose: 40 mg Piperacillin Sod/Tazobactam Sod (Zosyn 2.25gm Ivpb (Pre-Docked)) 2.25 gm IVPB Q8H-IV [facility] Last Admin: 04/04/17 09:14 Dose: 2.25 gm Scopolamine HBr (Transderm-Scop -) 1 patch TD Q3D@2200 [facility] Last Admin: 04/03/17 23:00 Dose: 1 patch - Objective Vital Signs: Vital Signs Temperature 98 F 04/04/17 05:00 Pulse Rate 86 04/04/17 06:00 Respiratory Rate 22 04/04/17 06:30 Blood Pressure 94/57 04/04/17 06:00 O2 Sat by Pulse Oximetry (%) 93 L 04/03/17 21:00 Constitutional: Yes: No Distress, Calm Eyes: Yes: Conjunctiva Clear, EOM Intact HENT: Yes: Atraumatic, Normocephalic Neck: Yes: Supple, Trachea Midline Cardiovascular: Yes: Regular Rate and Rhythm, S1, S2. No: Bradycardia, Tachycardia, Pulse Irregular, Bruit, JVD, Gallop, Murmur, Rub, S3, S4, Varicosities Respiratory: Yes: Regular, Diminished, Intubated, Mechanically Ventilated. No: Rales, Rhonchi, Wheezes Gastrointestinal: Yes: Normal Bowel Sounds, Soft. No: Distention, Tenderness Musculoskeletal: Yes: Muscle Weakness Extremities: Yes: WNL Edema: Yes Edema: LUE: 1+, RUE: 1+, LLE: 2+, RLE: 2+ Peripheral Pulses WNL: Yes Peripheral Pulses: Left Doralis Pedis: 2+, Right Dorsalis Pedis: 2+ Integumentary: Yes: WNL Neurological: Yes: Alert, Weakness. No: Oriented Psychiatric: Yes: Alert. 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 Cardiac arrest- -echo confirmed normal LV systolic function, dilated RV with reduced function, mod PAH -on pressors, wean as tolerates -cont amiodarone, receiving 400mg daily at this point, will need to clarify plan for loading dose with EP -s/p tracheostomy -cont HD as needed and cont Lasix given urine output -monitor I/Os, daily weights, bun/creat, electrolytes and replete as needed -Keep K=4 and Mg=2 -receiving Abx for possible PNA Acute on chronic diastolic/R sided CHF -as above HTN-on pressors -wean pressors as tolerates HLD -cont statin
--- NOTE | 2017-04-04 10:01 | PN ---
Progress Note, Physician Chief Complaint: The patient is in the ICU. Hypotensive, on prossors, Vent supported. The acute dialysis catheter was removed. Clinical condition shows no improvement. The extremities are turning gangrenous, swollen and cold. - Current Medication List Current Medications: Active Medications Amiodarone HCl (Cordarone -) 400 mg PO DAILY [facility] Last Admin: 04/04/17 09:19 Dose: 400 mg Atorvastatin Calcium (Lipitor -) 80 mg NGT HS [facility] Last Admin: 04/03/17 22:59 Dose: 80 mg Chlorhexidine Gluconate (Hibiclens For Decolonization -) 1 applic TP HS [facility] Last Admin: 04/03/17 22:59 Dose: 1 applic Chlorhexidine Gluconate (Peridex -) 15 ml MM BID [facility] Last Admin: 04/04/17 09:19 Dose: 15 ml Furosemide (Lasix Injection -) 80 mg IVPUSH BID@0600,1400 [facility] Last Admin: 04/04/17 07:00 Dose: 80 mg Hydrocortisone Sodium Succinate (Solu-Cortef -) 50 mg IVPB DAILY [facility] Last Admin: 04/04/17 09:19 Dose: 50 mg Propofol (Diprivan -) 100 mls @ 4.38 mls/hr IVPB TITR SARAH; 5 MCG/KG/MIN PRN Reason: Protocol Last Admin: 04/03/17 18:48 Dose: 29.994 mls/hr Norepinephrine Bitartrate 8, (000 mcg/ Dextrose) 258 mls @ 15.48 mls/hr IV TITR SARAH; 8 MCG/MIN PRN Reason: Protocol Last Admin: 04/03/17 22:59 Dose: Not Given Dopamine HCl 800,000 mcg/ (Sodium Chloride) 250 mls @ 22.98 mls/hr IV TITR SARAH ; 8 MCG/KG/MIN PRN Reason: Protocol Last Admin: 04/03/17 22:59 Dose: Not Given Insulin Aspart (Novolog Vial Sliding Scale -) 1 vial SQ ACHS [facility] PRN Reason: Protocol Last Admin: 04/04/17 07:01 Dose: Not Given Pantoprazole Sodium (Protonix 40mg Ivpb (Pre-Docked)) 40 mg IVPB DAILY [facility] Last Admin: 04/04/17 09:14 Dose: 40 mg Piperacillin Sod/Tazobactam Sod (Zosyn 2.25gm Ivpb (Pre-Docked)) 2.25 gm IVPB Q8H-IV [facility] Last Admin: 04/04/17 09:14 Dose: 2.25 gm Scopolamine HBr (Transderm-Scop -) 1 patch TD Q3D@2200 [facility] Last Admin: 04/03/17 23:00 Dose: 1 patch - Objective Vital Signs: Vital Signs Temperature 98 F 04/04/17 05:00 Pulse Rate 86 04/04/17 06:00 Respiratory Rate 22 04/04/17 06:30 Blood Pressure 94/57 04/04/17 06:00 O2 Sat by Pulse Oximetry (%) 93 L 04/03/17 21:00 Eyes: Yes: Conjunctiva Clear Neck: Yes: Trachea Midline Cardiovascular: Yes: S1, S2 Respiratory: Yes: Mechanically Ventilated Gastrointestinal: Yes: Abdomen, Obese, Hypoactive Bowel Sounds Extremities: Yes: Cold Neurological: Yes: Lethargy Labs: CBC, BMP 04/04/17 05:15 04/04/17 05:15 INR, PTT INR 1.25 (0.82-1.09) H 04/02/17 05:30 Problem List - Problems (1) A-fib Code(s): I48.91 - UNSPECIFIED ATRIAL FIBRILLATION Qualifiers: Qualified Code(s): I48.91 - Unspecified atrial fibrillation (2) Acute on chronic diastolic CHF (congestive heart failure) Code(s): I50.33 - ACUTE ON CHRONIC DIASTOLIC (CONGESTIVE) HEART FAILURE (3) Acute on chronic renal failure Code(s): N17.9 - ACUTE KIDNEY FAILURE, UNSPECIFIED N18.9 - CHRONIC KIDNEY DISEASE, UNSPECIFIED (4) Anemia Code(s): D64.9 - ANEMIA, UNSPECIFIED (5) CKD (chronic kidney disease) Code(s): N18.9 - CHRONIC KIDNEY DISEASE, UNSPECIFIED Qualifiers: Qualified Code(s): N18.4 - Chronic kidney disease, stage 4 (severe) (6) Hyperkalemia Code(s): E87.5 - HYPERKALEMIA (7) Anasarca Code(s): R60.1 - GENERALIZED EDEMA Assessment/Plan 76 y/o male with Acute Kidney Injury, Anasarca, Profound Hypotension, oliguria. Last dialysis on . The acute catheter was removed. Patient's clinical condition not improving. Hemodynamic status remains extremely unstable. Will monitor the renal functions for now. There is no emergent indication for dialysis at this point. Jazmin Cline MD
--- NOTE | 2017-04-04 12:56 | PN ---
Progress Note (short form) - Note Progress Note: PULM/CCM SUBJECTIVE: Patient seen and examined in the ICU. -remains on pressors -no HD, no current access...K ok, Fio2 same Vital Signs Temp 98 F 04/04/17 05:00 Pulse 84 04/04/17 10:00 Resp 28 H 04/04/17 12:20 BP 94/57 04/04/17 06:00 Pulse Ox 99 04/04/17 10:00 Intake & Output 04/03/17 04/04/17 04/04/17 23:59 11:59 23:59 Intake Total 1301.6 408 Output Total 100 Balance 1301.6 308 Weight 154.1 kg Intake: IV 501.6 408 Diprivan - 100 ml @ 5 MCG 103.2 96 /KG/MIN 4.38 mls/hr IVPB TITR SARAH Rx#:[id number] Levophed - 8,000 Mcg In 225.6 144 D5w - 250 ml @ 8 MCG/MIN 15.48 mls/hr IV TITR SARAH Rx#:[id number] Intropin - 800,000 Mcg In 172.8 168 Normal Saline - 230 ml @ 8 MCG/KG/MIN 22.98 mls/ hr IV TITR SARAH Rx#: [id number] IVPB 450 Packed Cells 350 Output: Urine 100 Ridley 100 Other: Voiding Method Indwelling Catheter Indwelling Catheter Weight Measurement Method Built in [facility] Active Medications Amiodarone HCl (Cordarone -) 400 mg PO DAILY [facility] Last Admin: 04/02/17 12:41 Dose: 400 mg Atorvastatin Calcium (Lipitor -) 80 mg NGT HS [facility] Last Admin: 04/02/17 22:03 Dose: 80 mg Chlorhexidine Gluconate (Hibiclens For Decolonization -) 1 applic TP HS [facility] Last Admin: 04/02/17 23:02 Dose: 1 applic Chlorhexidine Gluconate (Peridex -) 15 ml MM BID [facility] Last Admin: 04/02/17 22:05 Dose: 15 ml Furosemide (Lasix Injection -) 80 mg IVPUSH BID@0600,1400 [facility] Last Admin: 04/03/17 05:58 Dose: 80 mg Heparin Sodium (Porcine) (Heparin -) 1,000 unit IVPUSH PRN PRN PRN Reason: Heparin Last Admin: 03/28/17 10:59 Dose: 1,000 unit Heparin Sodium (Porcine) (Heparin -) 5,000 unit IVPUSH PRN PRN PRN Reason: Heparin Hydrocortisone Sodium Succinate (Solu-Cortef -) 50 mg IVPB DAILY [facility] Last Admin: 04/02/17 12:52 Dose: 50 mg Heparin Sodium (Porcine) 25, (000 unit/ Sodium Chloride) 500 mls @ 20 mls/hr IV TITR SARAH; 1,000 UNIT/HR PRN Reason: Protocol Last Admin: 04/01/17 15:49 Dose: 26 mls/hr Propofol (Diprivan -) 100 mls @ 4.38 mls/hr IVPB TITR SARAH; 5 MCG/KG/MIN PRN Reason: Protocol Last Admin: 04/02/17 20:10 Dose: 30 mls/hr Norepinephrine Bitartrate 8, (000 mcg/ Dextrose) 258 mls @ 15.48 mls/hr IV TITR SARAH; 8 MCG/MIN PRN Reason: Protocol Last Admin: 04/03/17 06:03 Dose: 18.8 mls/hr Dopamine HCl 800,000 mcg/ (Sodium Chloride) 250 mls @ 22.98 mls/hr IV TITR SARAH ; 8 MCG/KG/MIN PRN Reason: Protocol Last Admin: 04/03/17 06:04 Dose: 14.4 mls/hr Potassium Phosphate 15 mm/ (Dextrose) 255 mls @ 62.5 mls/hr IVPB ONCE ONE Stop: 04/03/17 14:15 Insulin Aspart (Novolog Vial Sliding Scale -) 1 vial SQ ACHS [facility] PRN Reason: Protocol Last Admin: 04/03/17 07:06 Dose: 2 units Pantoprazole Sodium (Protonix 40mg Ivpb (Pre-Docked)) 40 mg IVPB DAILY [facility] Last Admin: 04/02/17 12:41 Dose: 40 mg Piperacillin Sod/Tazobactam Sod (Zosyn 2.25gm Ivpb (Pre-Docked)) 2.25 gm IVPB Q8H-IV [facility] Last Admin: 04/03/17 02:00 Dose: 2.25 gm CBC, BMP 04/04/17 05:15 04/04/17 05:15 ABG Results ABG pH 7.47 (7.35-7.45) H 04/04/17 07:20 ABG pCO2 at Pt Temp 36.3 mmHg (35-45) 04/04/17 07:20 ABG pO2 at Pt Temp 124.0 mmHg (70-100) H D 04/04/17 07:20 ABG HCO3 26.2 meq/L (22-26) H 04/04/17 07:20 ABG O2 Sat (Measured) 99.3 % (90-98.9) H 04/04/17 07:20 ABG O2 Content 12.2 % vol (15-22) L 04/04/17 07:20 ABG Base Excess 3.0 meq/l (-2-2) H 04/04/17 07:20 Gen: vented, eyes are open Heart: RRR, +systolic murmur Lung: scattered rhonchi Abd: soft, obese, edematous Ext: + edema. anasarca CXR: Trach in place / right effusion/opacity, unchanged ASSESSMENT AND PLAN: S/P Vfib Cardiac Arrest Acute on Chronic Hypoxic Respiratory Failure S/P Tracheostomy Acute on Chronic Diastolic Heart Failure Severe Pulmonary HTN S/P BiV PPM CAD +Troponins Atrial Fibrillation HTN CKD Hyperlipidemia DM COPD Morbid Obesity Obstructive Sleep Apnea Anemia - ABX per ID - f/u cultures - keep K>4, Mg>2 - continue amiodarone - Normal transfusion thresholds - monitor H/H - Hydrocortisone, wean - titrate levophed, dopamine gtts to maintain MAP >65 - monitor urine output, creatinine - D/W renal -> no acute need for HD today - taper FiO2 to keep SpO2 >90% - Minimize sedation to follow mental status - Not candiated to vent wean - enteral feeds - DVT/GI prophylaxis Aldo Corley ACNP 0363 35min cct
[2017-04-04] MEDS: DOPAMINE HCL IV SCH (14:00)
[2017-04-04] MEDS: SODIUM CHLORIDE IV SCH (14:00)
[2017-04-04] MEDS: PROPOFOL 100 ML IVPB SCH (18:25)
[2017-04-04] MEDS ORDERED: NOREPINEPHRINE BITARTRATE 4 MG/4 ML ML IV ONE (19:48)
[2017-04-04] MEDS ORDERED: PROPOFOL 100 ML ONE (20:46)
[2017-04-04] MEDS: NOREPINEPHRINE BITARTRATE IV SCH (21:00)
[2017-04-04] MEDS: DEXTROSE 5% IV SCH (21:00)
[2017-04-04] MEDS: WATER IV SCH (21:00)
[2017-04-04] MEDS ORDERED: PT OWN MED DRAWER 7, Y5N ONE (22:28)
[2017-04-04] MEDS: ATORVASTATIN CA 80 MG TABLET (FP) NGT SCH (22:34)
[2017-04-04] MEDS: CHLORHEXIDINE GLUCONATE 4% CLEANSER FOR DECOLONIZATION TP SCH (22:34)
[2017-04-05] MEDS: PIPERACILLIN/TAZOB 2.25 GM/50 ML PRE-DOCKED BAG IVPB SCH ×3 (01:07→17:21)
[2017-04-05] MEDS: PROPOFOL 100 ML IVPB SCH (01:08)
[2017-04-05] MEDS ORDERED: HYDROCORTISONE SOD SUCCINATE 100 MG/2 ML VIAL IVPB SCH (05:17)
[2017-04-05 05:36] LABS: BASOPHIL 0.5 % (0-2.0); MCH 27.2 pg (25.7-33.7); MEAN CELL VOLUME 82.5 fl (80-96); NEUTROPHILS 87.5 % (42.8-82.8); PLATELET COUNT 198 K/MM3 (134-434); RDW 18.8 % (11.9-15.9); WHITE BLOOD COUNT 13.3 K/mm3 (4.0-10.0)
[2017-04-05] MEDS ORDERED: PT OWN MED DRAWER 7, Y5N ONE ×3 (05:46→21:59)
[2017-04-05] MEDS: FUROSEMIDE 40 MG/4 ML INJECTABLE VIAL IVPUSH SCH ×2 (05:49→14:22)
[2017-04-05] MEDS: BANATROL PLUS POWDER PACKET PO SCH ×3 (05:50→22:01)
[2017-04-05] MEDS: INSULIN SLIDING SCALE (NOVOLOG) 1 VIAL SQ SCH ×4 (06:00→22:00)
[2017-04-05 06:04] LABS: ALBUMIN 2.4 g/dl (3.4-5.0); CALCIUM 7.8 mg/dL (8.5-10.1); COCKROFT - GAULT 40.94; CREATININE 3.3 mg/dL (0.7-1.3)
[2017-04-05 06:06] LABS: TOT PROT 5.6 g/dl (6.4-8.2)
[2017-04-05 07:30] LABS: ARTERIAL BLD GAS O2 SATURATION 98.6 % (90-98.9); ARTERIAL BLOOD GAS BASE EXCESS 1.8 meq/l (-2-2); ARTERIAL BLOOD GAS HCO3 25.6 meq/L (22-26); ARTERIAL BLOOD GAS pH 7.44 (7.35-7.45)
[2017-04-05 07:32] LABS: ALLENS TEST POSITIVE; ART PUNCT SITE RIGHT RADIAL; MECH. VENT. YES; PT. ON O2? YES; TYPE OF O2 VENT; VENT RATE 16; VT/PRESS 380
--- NOTE | 2017-04-05 08:45 | PN ---
Progress Note (short form) - Note Progress Note: Progress Note: PULM/CCM SUBJECTIVE: Patient seen and examined in the ICU. -Levo 10, Dopa 5 -E-lytes ok and FiO2 55% Current Medications Amiodarone HCl (Cordarone -) 400 mg PO DAILY [facility] Last Admin: 04/04/17 09:19 Dose: 400 mg Atorvastatin Calcium (Lipitor -) 80 mg NGT HS [facility] Last Admin: 04/04/17 22:34 Dose: 80 mg Chlorhexidine Gluconate (Hibiclens For Decolonization -) 1 applic TP HS [facility] Last Admin: 04/04/17 22:34 Dose: 1 applic Chlorhexidine Gluconate (Peridex -) 15 ml MM BID [facility] Last Admin: 04/04/17 22:34 Dose: 15 ml Furosemide (Lasix Injection -) 80 mg IVPUSH BID@0600,1400 [facility] Last Admin: 04/05/17 05:49 Dose: 80 mg Hydrocortisone Sodium Succinate (Solu-Cortef -) 25 mg IVPB DAILY [facility] Propofol (Diprivan -) 100 mls @ 4.38 mls/hr IVPB TITR SARAH; 5 MCG/KG/MIN PRN Reason: Protocol Last Admin: 04/05/17 01:08 Dose: 8.76 mls/hr Norepinephrine Bitartrate 8, (000 mcg/ Dextrose) 258 mls @ 15.48 mls/hr IV TITR SARAH; 8 MCG/MIN PRN Reason: Protocol Last Admin: 04/04/17 21:00 Dose: 18.8 mls/hr Dopamine HCl 800,000 mcg/ (Sodium Chloride) 250 mls @ 22.98 mls/hr IV TITR SARAH ; 8 MCG/KG/MIN PRN Reason: Protocol Last Admin: 04/04/17 14:00 Dose: 14.39 mls/hr Insulin Aspart (Novolog Vial Sliding Scale -) 1 vial SQ ACHS [facility] PRN Reason: Protocol Last Admin: 04/05/17 06:00 Dose: 2 units Pantoprazole Sodium (Protonix 40mg Ivpb (Pre-Docked)) 40 mg IVPB DAILY [facility] Last Admin: 04/04/17 09:14 Dose: 40 mg Piperacillin Sod/Tazobactam Sod (Zosyn 2.25gm Ivpb (Pre-Docked)) 2.25 gm IVPB Q8H-IV [facility] Last Admin: 04/05/17 01:07 Dose: 2.25 gm Scopolamine HBr (Transderm-Scop -) 1 patch TD Q3D@2200 [facility] Last Admin: 04/03/17 23:00 Dose: 1 patch Vital Signs Temp 97.8 F 04/05/17 06:00 Pulse 74 04/05/17 08:00 Resp 18 04/05/17 08:00 BP 119/61 04/05/17 08:00 Pulse Ox 95 04/04/17 22:00 Intake & Output 04/04/17 04/05/17 04/05/17 18:59 06:59 18:59 Intake Total 724.2 871.6 Output Total 200 150 Balance 524.2 721.6 Weight 156.898 kg Intake: IV 474.2 501.6 Diprivan - 100 ml @ 5 MCG 94.6 103.2 /KG/MIN 4.38 mls/hr IVPB TITR SARAH Rx#:[id number] Levophed - 8,000 Mcg In 206.8 225.6 D5w - 250 ml @ 8 MCG/MIN 15.48 mls/hr IV TITR SARAH Rx#:[id number] Intropin - 800,000 Mcg In 172.8 172.8 Normal Saline - 230 ml @ 8 MCG/KG/MIN 22.98 mls/ hr IV TITR SARAH Rx#: [id number] IVPB 250 100 Oral 270 Output: Urine 200 150 Ridley 200 150 Other: Voiding Method Indwelling Catheter Indwelling Catheter Bowel Movement Yes: large, soft # Bowel Movements 1 Weight Measurement Method Built in [facility] Gen: awake, alert Heart: RRR, +systolic murmur Lung: scattered rhonchi Abd: soft, obese, edematous Ext: + edema. anasarca CBC, BMP 04/05/17 05:10 04/05/17 05:10 CXR: Trach in place / left effusion/opacity, unchanged ASSESSMENT AND PLAN: S/P Vfib Cardiac Arrest Acute on Chronic Hypoxic Respiratory Failure S/P Tracheostomy Acute on Chronic Diastolic Heart Failure Severe Pulmonary HTN S/P BiV PPM CAD +Troponins Atrial Fibrillation HTN CKD Hyperlipidemia DM COPD Morbid Obesity Obstructive Sleep Apnea Anemia MRSA Pneumonia - Stop Propofol - Wean pressors - would keep Dopa to support the RV (LV fxn is normal) and wean Levo - No acute indication for HD today except for UF, I will place a HD catheter if HD is desired - ABX per ID - Vanc for MRSA PNA - Consider diagnostic/theraputic thora on the left side if in line with goals of care - there maybe empyema or parapneumonic effusion and the reason we can't come off of pressors. - continue amiodarone - Normal transfusion thresholds - monitor H/H - Stop Hydrocortisone - titrate levophed, dopamine gtts to maintain MAP >65 - monitor urine output, creatinine - taper FiO2 to keep SpO2 >90% - Not candiated to vent wean right now - enteral feeds - DVT/GI prophylaxis Marques Banks Pulm/Critical Care CABLE TELE[employer]ION LINE TECHNICIAN [id number] 35min cct
--- NOTE | 2017-04-05 09:21 | PN ---
Progress Note, Physician History of Present Illness: seen and examined today in nad. no significant change since yesterday morning. opens eyes. today not following any commands. no reported overnight events. - Current Medication List Current Medications: Active Medications Amiodarone HCl (Cordarone -) 400 mg PO DAILY [facility] Last Admin: 04/04/17 09:19 Dose: 400 mg Atorvastatin Calcium (Lipitor -) 80 mg NGT HS [facility] Last Admin: 04/04/17 22:34 Dose: 80 mg Chlorhexidine Gluconate (Hibiclens For Decolonization -) 1 applic TP HS [facility] Last Admin: 04/04/17 22:34 Dose: 1 applic Chlorhexidine Gluconate (Peridex -) 15 ml MM BID [facility] Last Admin: 04/04/17 22:34 Dose: 15 ml Furosemide (Lasix Injection -) 80 mg IVPUSH BID@0600,1400 [facility] Last Admin: 04/05/17 05:49 Dose: 80 mg Norepinephrine Bitartrate 8, (000 mcg/ Dextrose) 258 mls @ 15.48 mls/hr IV TITR SARAH; 8 MCG/MIN PRN Reason: Protocol Last Admin: 04/04/17 21:00 Dose: 18.8 mls/hr Dopamine HCl 800,000 mcg/ (Sodium Chloride) 250 mls @ 22.98 mls/hr IV TITR SARAH ; 8 MCG/KG/MIN PRN Reason: Protocol Last Admin: 04/04/17 14:00 Dose: 14.39 mls/hr Insulin Aspart (Novolog Vial Sliding Scale -) 1 vial SQ ACHS [facility] PRN Reason: Protocol Last Admin: 04/05/17 06:00 Dose: 2 units Pantoprazole Sodium (Protonix 40mg Ivpb (Pre-Docked)) 40 mg IVPB DAILY [facility] Last Admin: 04/04/17 09:14 Dose: 40 mg Piperacillin Sod/Tazobactam Sod (Zosyn 2.25gm Ivpb (Pre-Docked)) 2.25 gm IVPB Q8H-IV [facility] Last Admin: 04/05/17 01:07 Dose: 2.25 gm Scopolamine HBr (Transderm-Scop -) 1 patch TD Q3D@2200 [facility] Last Admin: 04/03/17 23:00 Dose: 1 patch - Objective Vital Signs: Vital Signs Temperature 97.8 F 04/05/17 06:00 Pulse Rate 74 04/05/17 08:00 Respiratory Rate 18 04/05/17 08:00 Blood Pressure 119/61 04/05/17 08:00 O2 Sat by Pulse Oximetry (%) 95 04/04/17 22:00 Constitutional: Yes: No Distress, Calm Eyes: Yes: Conjunctiva Clear, EOM Intact HENT: Yes: Atraumatic, Normocephalic Neck: Yes: Supple, Trachea Midline Cardiovascular: Yes: Pulse Irregular, S1, S2. No: Bradycardia, Tachycardia, Bruit, JVD, Gallop, Murmur, Rub, S3, S4, Varicosities Respiratory: Yes: Regular, Diminished, Mechanically Ventilated, Rales, Other ( trach). No: Rhonchi, Wheezes Gastrointestinal: Yes: Normal Bowel Sounds, Soft. No: Distention, Tenderness Musculoskeletal: Yes: Muscle Weakness Edema: Yes Edema: LUE: 2+, RUE: 2+, LLE: 2+, RLE: 2+ Peripheral Pulses WNL: Yes Peripheral Pulses: Left Doralis Pedis: 2+, Right Dorsalis Pedis: 2+ Neurological: Yes: Alert, Weakness. No: Oriented Psychiatric: No: Alert, Oriented Labs: CBC, BMP 04/05/17 05:10 04/05/17 05:10 INR, PTT INR 1.25 (0.82-1.09) H 04/02/17 05:30 - ....Imaging Chest X-ray: Report Reviewed, Image Reviewed EKG: Report Reviewed, Image Reviewed Other: Report Reviewed, Image Reviewed (tele-Afib, HR controlled, BiV pacing) Assessment/Plan 76 year old man with a history of Chronic diastolic CHF, Chronic R sided CHF, non-obstructive CAD on cardiac cath 2008, BiV PPM, COPD, HTN, HLD, Afib, CKD, MARY admitted with cardiac arrest, resuscitated with CPR, shock x 1, amiodarone. Cardiac arrest- -echo showed normal LV systolic function, dilated RV with reduced function, mod PAH -still requiring pressors, wean as tolerates -cont amiodarone 400mg daily, will need to clarify plan for loading and maintenance dose with EP -s/p tracheostomy -cont HD as needed and cont Lasix given urine output -monitor I/Os, daily weights, bun/creat, electrolytes and replete as needed -Keep K=4 and Mg=2 -receiving Abx for possible PNA Acute on chronic diastolic/R sided CHF -as above HTN-on pressors -wean pressors as tolerates HLD -cont statin
[2017-04-05] MEDS: AMIODARONE HCL 200 MG TABLET (FP) PO SCH (10:11)
[2017-04-05] MEDS: CHLORHEXIDINE GLUCONATE 0.12% 15ML CUP MM SCH ×2 (10:12→22:01)
[2017-04-05] MEDS: PANTOPRAZOLE SODIUM 40 MG/100 ML PRE-DOCKED IVPB SCH (10:13)
[2017-04-05] MEDS ORDERED: NOREPINEPHRINE BITARTRATE 4 MG/4 ML ML IV ONE (11:13)
--- NOTE | 2017-04-05 11:37 | PN ---
Progress Note (short form) - Note Progress Note: Subjective:unable to obtain hx but shakes his head no to pain. Objective: Vital Signs: Last Vital Signs Temp Pulse Resp BP Pulse Ox 97.8 F 90 28 H 119/61 99 04/05/17 06:00 04/05/17 10:30 04/05/17 10:30 04/05/17 08:00 04/05/17 10:30 Intake & Output 04/02/17 04/03/17 04/04/17 04/05/17 23:59 23:59 23:59 23:59 Intake Total 1783 1766.6 1434.4 569.4 Output Total 355 100 400 50 Balance 1428 1666.6 1034.4 519.4 Weight 340 lb 3.2 oz 334 lb 5 oz 339 lb 11.717 oz 345 lb 14.4 oz Laboratory Results - last 24 hr 04/04/17 04/04/17 04/04/17 11:43 17:44 22:39 WBC RBC Hgb Hct MCV MCHC RDW Plt Count MPV Neutrophils % Lymphocytes % Monocytes % Eosinophils % Basophils % Puncture Site ABG pH ABG pCO2 at Pt Temp ABG pO2 at Pt Temp ABG HCO3 ABG O2 Sat (Measured) ABG O2 Content ABG Base Excess Brian Test O2 Delivery Device Oxygen Flow Rate Vent Mode Vent Rate Mechanical Rate PEEP Pressure Support Vent Sodium Potassium Chloride Carbon Dioxide Anion Gap BUN Creatinine Creat Clearance w eGFR POC Glucometer 194.41551 200.87368 191.55997 Random Glucose Calcium Total Bilirubin AST ALT Alkaline Phosphatase Total Protein Albumin Stool Occult Blood Random Vancomycin 04/05/17 04/05/17 04/05/17 05:10 05:10 05:10 WBC 13.3 H RBC 2.85 L Hgb 7.7 L Hct 23.5 L MCV 82.5 MCHC 33.0 RDW 18.8 H Plt Count 198 MPV 8.0 Neutrophils % 87.5 H Lymphocytes % 4.4 L D Monocytes % 6.6 Eosinophils % 1.0 Basophils % 0.5 Puncture Site ABG pH ABG pCO2 at Pt Temp ABG pO2 at Pt Temp ABG HCO3 ABG O2 Sat (Measured) ABG O2 Content ABG Base Excess Brian Test O2 Delivery Device Oxygen Flow Rate Vent Mode Vent Rate Mechanical Rate PEEP Pressure Support Vent Sodium 136 Potassium 3.6 Chloride 95 L Carbon Dioxide 27 Anion Gap 14 BUN 55 H Creatinine 3.3 H Creat Clearance w eGFR 18.22 POC Glucometer Random Glucose 135 H Calcium 7.8 L Total Bilirubin 1.0 AST 20 ALT 15 Alkaline Phosphatase 68 Total Protein 5.6 L Albumin 2.4 L Stool Occult Blood Random Vancomycin 15.113 04/05/17 04/05/17 04/05/17 05:41 05:50 07:00 WBC RBC Hgb Hct MCV MCHC RDW Plt Count MPV Neutrophils % Lymphocytes % Monocytes % Eosinophils % Basophils % Puncture Site Right radial ABG pH 7.44 ABG pCO2 at Pt Temp 38.8 ABG pO2 at Pt Temp 110.0 H ABG HCO3 25.6 ABG O2 Sat (Measured) 98.6 ABG O2 Content 14.9 L ABG Base Excess 1.8 Brian Test Positive O2 Delivery Device Vent Oxygen Flow Rate 55% Vent Mode A/c Vent Rate 16 Mechanical Rate Yes PEEP 5.0 Pressure Support Vent 380 Sodium Potassium Chloride Carbon Dioxide Anion Gap BUN Creatinine Creat Clearance w eGFR POC Glucometer 165.00068 Random Glucose Calcium Total Bilirubin AST ALT Alkaline Phosphatase Total Protein Albumin Stool Occult Blood Negative Random Vancomycin Physical Exam: trached. awake and alert . L IJ, trach. CV: RRR, no MRG Lungs ;clear anteriorly . decreased breath sounds at L base Abd : obese . Abd wall edema 1+ . NL BS Ext : 2+ pitting edema on LE , Chronic hyperpigmentation and skin thickening. ASSESSMENT AND PLAN: 76 y/o man with h/o Severe cardiomypathy( non ischemic ) ,with severely reduced EF, and PULm HTN, Diastolic dysfunction , A fib on AC, who presented with cardiac arrest (V fib ) [facility] 1- S/P cardiac arrest: due to severe R sided cardiomyopathy. - cont pressor support( dopamine 5/hr, and levophed 6 mcg /min ) . CVP 18, MAP 65 . taper as tolerated - cont Amio 400 daily - hydrocortisone stopped 2- Severe non-ischemic cardiomypoathy, with acute on chronic systolic and diastolic heart failure - no HD today - cont IV lasix - monitor I&Os 3- Acute hypoxic resp failure :due to CHF , Left PNA ( sputum cx with MRSA ) -sputum cx MRSA twice . no G- seen . - zosyn for now - vanco level 15 today. d/w Dr. Nnamdi , no dose for today - cont Vent support . 4- Acute on chronic anemia: stable HB ( 7.7 today ) - contto monitor - fecal OB + . monitor - cont to hold heparin gtt 5- A fib: rate is controlled , - monitor rate 5-SUJATA on CKD : cont HD. DVT px: SCDS, not being applied Visit type - Emergency Visit Emergency Visit: Yes ED Registration Date: 03/17/17 Care time: The patient presented to the Emergency Department on the above date and was hospitalized for further evaluation of their emergent condition. - New Patient This patient is new to me today: No - Critical Care Critical Care patient: Yes Total Critical Care Time (in minutes): 25
--- NOTE | 2017-04-05 11:47 | PN ---
Progress Note (short form) - Note Progress Note: remains intubated awake and alert pressors being tapered Vital Signs Period Temp Pulse Resp BP Sys/Krishnan Pulse Ox Last 24 Hr 97.6 F-98.1 F 74-95 15-28 85-131/58-85 95-99 trach to vent cor-rrr lungs decreased bs at bases abd soft, nt ext +edema brooks +cvp CBC, BMP 04/05/17 05:10 04/05/17 05:10 cxray left lung opacification Microbiology 03/31/17 16:30 Blood Culture - Preliminary Blood - Peripheral Venous NO GROWTH OBTAINED AFTER 96 HOURS, INCUBATION TO CONTINUE FOR 1 DAYS. 03/31/17 14:00 Blood Culture - Preliminary Blood - Peripheral Venous NO GROWTH OBTAINED AFTER 96 HOURS, INCUBATION TO CONTINUE FOR 1 DAYS. 04/01/17 09:00 Gram Stain - Final Sputum - Endotrachea Suction/Ventilator Sputum Culture - Final S Aureus Laboratory Tests 03/24/17 04/02/17 04/04/17 05:30 06:00 09:00 Random Vancomycin 16.898 19.652 15.285 04/05/17 05:10 Random Vancomycin 15.113 a/p left lung opacification- ?fluid, ?atelectasis- on vanco/zosyn- vanco level 15 redose in am s/p code resp failure SUJATA/CKD- on HD cardiomyopathy/PPM off steroids pressors being tapered Problem List - Problems (1) Cardiac arrest Code(s): I46.9 - CARDIAC ARREST, CAUSE UNSPECIFIED (2) Pneumonia Code(s): J18.9 - PNEUMONIA, UNSPECIFIED ORGANISM (3) CKD (chronic kidney disease) Code(s): N18.9 - CHRONIC KIDNEY DISEASE, UNSPECIFIED Qualifiers: Qualified Code(s): N18.4 - Chronic kidney disease, stage 4 (severe) (4) Cardiomyopathy Code(s): I42.9 - CARDIOMYOPATHY, UNSPECIFIED
[2017-04-05] MEDS: WATER IV SCH (12:20)
[2017-04-05] MEDS: DEXTROSE 5% IV SCH (12:20)
[2017-04-05] MEDS: NOREPINEPHRINE BITARTRATE IV SCH (12:20)
[2017-04-05] MEDS: DOPAMINE HCL IV SCH (12:40)
[2017-04-05] MEDS: SODIUM CHLORIDE IV SCH (12:40)
--- NOTE | 2017-04-05 15:10 | PN ---
Progress Note, Physician Chief Complaint: The patient remains in ICU. More alert. Family visiting. Afebrile. Remains pressor supported, s/p Tracheostomy, Vent support, Tube feeding, Generalized anasarca. - Current Medication List Current Medications: Active Medications Amiodarone HCl (Cordarone -) 400 mg PO DAILY [facility] Last Admin: 04/05/17 10:11 Dose: 400 mg Atorvastatin Calcium (Lipitor -) 80 mg NGT HS [facility] Last Admin: 04/04/17 22:34 Dose: 80 mg Chlorhexidine Gluconate (Hibiclens For Decolonization -) 1 applic TP HS [facility] Last Admin: 04/04/17 22:34 Dose: 1 applic Chlorhexidine Gluconate (Peridex -) 15 ml MM BID [facility] Last Admin: 04/05/17 10:12 Dose: 15 ml Furosemide (Lasix Injection -) 80 mg IVPUSH BID@0600,1400 [facility] Last Admin: 04/05/17 14:22 Dose: 80 mg Norepinephrine Bitartrate 8, (000 mcg/ Dextrose) 258 mls @ 15.48 mls/hr IV TITR SARAH; 8 MCG/MIN PRN Reason: Protocol Last Admin: 04/05/17 12:20 Dose: 11.61 mls/hr Dopamine HCl 800,000 mcg/ (Sodium Chloride) 250 mls @ 22.98 mls/hr IV TITR SARAH ; 8 MCG/KG/MIN PRN Reason: Protocol Last Admin: 04/05/17 12:40 Dose: 14 mls/hr Propofol (Diprivan -) 100 mls @ 4.707 mls/hr IVPUSH TITR SARAH; 5 MCG/KG/MIN PRN Reason: Protocol Insulin Aspart (Novolog Vial Sliding Scale -) 1 vial SQ ACHS SARAH PRN Reason: Protocol Last Admin: 04/05/17 12:19 Dose: 4 units Pantoprazole Sodium (Protonix 40mg Ivpb (Pre-Docked)) 40 mg IVPB DAILY [facility] Last Admin: 04/05/17 10:13 Dose: 40 mg Piperacillin Sod/Tazobactam Sod (Zosyn 2.25gm Ivpb (Pre-Docked)) 2.25 gm IVPB Q8H-IV [facility] Last Admin: 04/05/17 10:13 Dose: 2.25 gm Scopolamine HBr (Transderm-Scop -) 1 patch TD Q3D@2200 [facility] Last Admin: 04/03/17 23:00 Dose: 1 patch - Objective Vital Signs: Vital Signs Temperature 98 F 04/05/17 14:00 Pulse Rate 88 04/05/17 14:00 Respiratory Rate 26 H 04/05/17 14:27 Blood Pressure 95/68 04/05/17 14:00 O2 Sat by Pulse Oximetry (%) 95 04/05/17 11:53 Neck: Yes: Trachea Midline Cardiovascular: Yes: S1, S2 Respiratory: Yes: Diminished, Mechanically Ventilated, Poor Air Entry Gastrointestinal: Yes: Abdomen, Obese Edema: Yes Edema: LLE: 4+, RLE: 4+ Neurological: Yes: Alert Labs: CBC, BMP 04/05/17 05:10 04/05/17 05:10 INR, PTT INR 1.25 (0.82-1.09) H 04/02/17 05:30 Problem List - Problems (1) A-fib Code(s): I48.91 - UNSPECIFIED ATRIAL FIBRILLATION Qualifiers: Qualified Code(s): I48.91 - Unspecified atrial fibrillation (2) Acute on chronic diastolic CHF (congestive heart failure) Code(s): I50.33 - ACUTE ON CHRONIC DIASTOLIC (CONGESTIVE) HEART FAILURE (3) Acute on chronic renal failure Code(s): N17.9 - ACUTE KIDNEY FAILURE, UNSPECIFIED N18.9 - CHRONIC KIDNEY DISEASE, UNSPECIFIED (4) Anemia Code(s): D64.9 - ANEMIA, UNSPECIFIED (5) CKD (chronic kidney disease) Code(s): N18.9 - CHRONIC KIDNEY DISEASE, UNSPECIFIED Qualifiers: Qualified Code(s): N18.4 - Chronic kidney disease, stage 4 (severe) (6) Hyperkalemia Code(s): E87.5 - HYPERKALEMIA (7) Anasarca Code(s): R60.1 - GENERALIZED EDEMA Assessment/Plan 76 y/o male with Acute Kidney Injury, Anasarca, Profound Hypotension Discussed at length with the family. They want to continue all aggressive measures. Will monitor the renal functions for now. There is no emergent indication for dialysis at this point. But, if the anasarca persists or worsens, may require dialysis. Will obtain labs daily Jazmin Cline MD
[2017-04-05] MEDS ORDERED: HEMOQUE TEST 1 EACH EACH ONE (21:24)
[2017-04-05] MEDS: CHLORHEXIDINE GLUCONATE 4% CLEANSER FOR DECOLONIZATION TP SCH (22:01)
[2017-04-05] MEDS: ATORVASTATIN CA 80 MG TABLET (FP) NGT SCH (22:01)
[2017-04-05] MEDS: PROPOFOL 100 ML IVPUSH SCH (22:01)
[2017-04-06] MEDS ORDERED: NOREPINEPHRINE BITARTRATE 4 MG/4 ML ML IV ONE ×2 (01:02→17:32)
[2017-04-06] MEDS: PIPERACILLIN/TAZOB 2.25 GM/50 ML PRE-DOCKED BAG IVPB SCH (02:26)
[2017-04-06] MEDS: FUROSEMIDE 40 MG/4 ML INJECTABLE VIAL IVPUSH SCH ×2 (06:13→14:19)
[2017-04-06] MEDS: INSULIN SLIDING SCALE (NOVOLOG) 1 VIAL SQ SCH ×4 (06:14→22:14)
[2017-04-06] MEDS: BANATROL PLUS POWDER PACKET PO SCH ×3 (06:15→21:38)
[2017-04-06 06:24] LABS: BASOPHIL 0.7 % (0-2.0); MCH 27.7 pg (25.7-33.7); MCHC 33.6 g/dl (32.0-35.9); MEAN CELL VOLUME 82.5 fl (80-96); MEAN PLT VOLUME 8.3 fl (7.5-11.1); PLATELET COUNT 199 K/MM3 (134-434); WHITE BLOOD COUNT 13.1 K/mm3 (4.0-10.0)
[2017-04-06 06:49] LABS: ALBUMIN 2.2 g/dl (3.4-5.0); CALCIUM 7.5 mg/dL (8.5-10.1); MAGNESIUM 2.3 mg/dL (1.8-2.4)
--- NOTE | 2017-04-06 06:52 | PN ---
Progress Note, Physician Chief Complaint: ID Vancomcycin and Zosyn Overall not much change as remains on pressors Dopamine Levophed Alert off sedation - Current Medication List Current Medications: Active Medications Amiodarone HCl (Cordarone -) 400 mg PO DAILY [facility] Last Admin: 04/05/17 10:11 Dose: 400 mg Atorvastatin Calcium (Lipitor -) 80 mg NGT HS [facility] Last Admin: 04/05/17 22:01 Dose: 80 mg Chlorhexidine Gluconate (Hibiclens For Decolonization -) 1 applic TP HS [facility] Last Admin: 04/05/17 22:01 Dose: 1 applic Chlorhexidine Gluconate (Peridex -) 15 ml MM BID [facility] Last Admin: 04/05/17 22:01 Dose: 15 ml Furosemide (Lasix Injection -) 80 mg IVPUSH BID@0600,1400 [facility] Last Admin: 04/06/17 06:13 Dose: 80 mg Norepinephrine Bitartrate 8, (000 mcg/ Dextrose) 258 mls @ 15.48 mls/hr IV TITR SARAH; 8 MCG/MIN PRN Reason: Protocol Last Titration: 04/05/17 19:00 Dose: 9.71 mcg/min Dopamine HCl 800,000 mcg/ (Sodium Chloride) 250 mls @ 22.98 mls/hr IV TITR SARAH ; 8 MCG/KG/MIN PRN Reason: Protocol Last Titration: 04/05/17 19:00 Dose: 5 mcg/kg/min Propofol (Diprivan -) 100 mls @ 4.707 mls/hr IVPUSH TITR SARAH; 5 MCG/KG/MIN PRN Reason: Protocol Last Admin: 04/05/17 22:01 Dose: Not Given Insulin Aspart (Novolog Vial Sliding Scale -) 1 vial SQ ACHS SARAH PRN Reason: Protocol Last Admin: 04/06/17 06:14 Dose: 4 units Pantoprazole Sodium (Protonix 40mg Ivpb (Pre-Docked)) 40 mg IVPB DAILY [facility] Last Admin: 04/05/17 10:13 Dose: 40 mg Piperacillin Sod/Tazobactam Sod (Zosyn 2.25gm Ivpb (Pre-Docked)) 2.25 gm IVPB Q8H-IV [facility] Last Admin: 04/06/17 02:26 Dose: 2.25 gm Scopolamine HBr (Transderm-Scop -) 1 patch TD Q3D@2200 [facility] Last Admin: 04/03/17 23:00 Dose: 1 patch - Objective Vital Signs: Vital Signs Temperature 99.4 F 04/06/17 06:00 Pulse Rate 77 04/06/17 06:00 Respiratory Rate 32 H 04/06/17 06:36 Blood Pressure 104/62 04/06/17 06:00 O2 Sat by Pulse Oximetry (%) 100 04/05/17 22:00 Constitutional: Yes: Obese Cardiovascular: Yes: S1, S2 Respiratory: Yes: Diminished Gastrointestinal: Yes: Soft. No: Tenderness Labs: CBC, BMP 04/06/17 05:35 INR, PTT INR 1.25 (0.82-1.09) H 04/02/17 05:30 Assessment/Plan Laboratory Tests 04/05/17 04/05/17 04/06/17 05:10 05:10 05:35 WBC 13.1 H Hgb 7.2 L Hct 21.4 L Plt Count 199 BUN 55 H Creatinine 3.3 H Random Vancomycin 15.113 Assessment Post cardiac arrest Acute renal failure Respiratory failure Tracheostomy Opacifed atalectasis left lung MRSA sputum Plan Observe off antibiotics at this time Alba BENITEZ
[2017-04-06 06:54] LABS: BILIRUBIN,TOTAL 0.9 mg/dL (0.2-1.0); COCKROFT - GAULT 36.47; CREATININE 3.7 mg/dL (0.7-1.3); PHOSPHOROUS 3.9 mg/dL (2.5-4.9); TOT PROT 5.5 g/dl (6.4-8.2)
[2017-04-06] MEDS ORDERED: PT OWN MED DRAWER 7, Y5N ONE ×2 (09:12→21:27)
[2017-04-06] MEDS: WATER IV SCH ×2 (09:21→17:41)
[2017-04-06] MEDS: NOREPINEPHRINE BITARTRATE IV SCH ×2 (09:21→17:41)
[2017-04-06] MEDS: DEXTROSE 5% IV SCH ×2 (09:21→17:41)
[2017-04-06] MEDS: PANTOPRAZOLE SODIUM 40 MG/100 ML PRE-DOCKED IVPB SCH (09:23)
[2017-04-06] MEDS: AMIODARONE HCL 200 MG TABLET (FP) PO SCH (09:23)
[2017-04-06] MEDS: CHLORHEXIDINE GLUCONATE 0.12% 15ML CUP MM SCH ×2 (09:23→21:38)
--- NOTE | 2017-04-06 10:34 | PN ---
Progress Note, Physician Chief Complaint: The patient is in the ICU. More alert. BP remains low, on two Pressor agents. No chest pain. No arrhythmias. Remains oliguric. - Current Medication List Current Medications: Active Medications Amiodarone HCl (Cordarone -) 400 mg PO DAILY [facility] Last Admin: 04/06/17 09:23 Dose: 400 mg Atorvastatin Calcium (Lipitor -) 80 mg NGT HS [facility] Last Admin: 04/05/17 22:01 Dose: 80 mg Chlorhexidine Gluconate (Hibiclens For Decolonization -) 1 applic TP HS [facility] Last Admin: 04/05/17 22:01 Dose: 1 applic Chlorhexidine Gluconate (Peridex -) 15 ml MM BID [facility] Last Admin: 04/06/17 09:23 Dose: 15 ml Furosemide (Lasix Injection -) 80 mg IVPUSH BID@0600,1400 [facility] Last Admin: 04/06/17 06:13 Dose: 80 mg Norepinephrine Bitartrate 8, (000 mcg/ Dextrose) 258 mls @ 15.48 mls/hr IV TITR SARAH; 8 MCG/MIN PRN Reason: Protocol Last Admin: 04/06/17 09:21 Dose: 9.67 mls/hr Dopamine HCl 800,000 mcg/ (Sodium Chloride) 250 mls @ 22.98 mls/hr IV TITR SARAH ; 8 MCG/KG/MIN PRN Reason: Protocol Last Titration: 04/05/17 19:00 Dose: 5 mcg/kg/min Propofol (Diprivan -) 100 mls @ 4.707 mls/hr IVPUSH TITR SARAH; 5 MCG/KG/MIN PRN Reason: Protocol Last Admin: 04/05/17 22:01 Dose: Not Given Insulin Aspart (Novolog Vial Sliding Scale -) 1 vial SQ ACHS [facility] PRN Reason: Protocol Last Admin: 04/06/17 06:14 Dose: 4 units Pantoprazole Sodium (Protonix 40mg Ivpb (Pre-Docked)) 40 mg IVPB DAILY [facility] Last Admin: 04/06/17 09:23 Dose: 40 mg Scopolamine HBr (Transderm-Scop -) 1 patch TD Q3D@2200 [facility] Last Admin: 04/03/17 23:00 Dose: 1 patch - Objective Vital Signs: Vital Signs Temperature 99.4 F 04/06/17 06:00 Pulse Rate 84 04/06/17 10:04 Respiratory Rate 29 H 04/06/17 09:05 Blood Pressure 123/87 04/06/17 09:21 O2 Sat by Pulse Oximetry (%) 99 04/06/17 10:04 Constitutional: Yes: Anxious HENT: Yes: Atraumatic Cardiovascular: Yes: S1, S2, S3 Respiratory: Yes: Diminished, Mechanically Ventilated, Poor Air Entry, Rales Gastrointestinal: Yes: Abdomen, Obese, Hypoactive Bowel Sounds Genitourinary: Yes: Oliguria Edema: Yes Edema: LLE: 4+, RLE: 4+ Neurological: Yes: Oriented Labs: CBC, BMP 04/06/17 05:35 04/06/17 05:35 INR, PTT INR 1.25 (0.82-1.09) H 04/02/17 05:30 Problem List - Problems (1) A-fib Code(s): I48.91 - UNSPECIFIED ATRIAL FIBRILLATION Qualifiers: Qualified Code(s): I48.91 - Unspecified atrial fibrillation (2) Acute on chronic diastolic CHF (congestive heart failure) Code(s): I50.33 - ACUTE ON CHRONIC DIASTOLIC (CONGESTIVE) HEART FAILURE (3) Acute on chronic renal failure Code(s): N17.9 - ACUTE KIDNEY FAILURE, UNSPECIFIED N18.9 - CHRONIC KIDNEY DISEASE, UNSPECIFIED (4) Anemia Code(s): D64.9 - ANEMIA, UNSPECIFIED (5) CKD (chronic kidney disease) Code(s): N18.9 - CHRONIC KIDNEY DISEASE, UNSPECIFIED Qualifiers: Qualified Code(s): N18.4 - Chronic kidney disease, stage 4 (severe) (6) Hyperkalemia Code(s): E87.5 - HYPERKALEMIA (7) Anasarca Code(s): R60.1 - GENERALIZED EDEMA Assessment/Plan The patient is a 76 y/o male, s/p Cardiac arrest, on vent support, in SUJATA ( oliguric), anasarca, with progressive and worsening edema of the body. The patient has profound anemia. Discussed the patient with the ICU team. Will place dialysis catheter, dialyse with UF. Orders reviewed with the RN. If transfusion is contemplated, may transfuse during dialysis. Jazmin Cline MD
[2017-04-06] MEDS ORDERED: RANITIDINE HCL 150 MG/10 ML UNIT-DOSE CUP PEG SCH (10:45)
[2017-04-06] MEDS: DOPAMINE HCL IV SCH (11:00)
[2017-04-06] MEDS: SODIUM CHLORIDE IV SCH (11:00)
--- NOTE | 2017-04-06 12:59 | PN ---
Teaching Attending Note Name of Resident: Cleve Bourgeois ATTENDING PHYSICIAN STATEMENT I saw and evaluated the patient. I reviewed the resident's note and discussed the case with the resident. I agree with the resident's findings and plan as documented. SUBJECTIVE:limited hx . no events over night OBJECTIVE: trached. awake and alert , trys totalk , moves his upper extremities. . L IJ, trach. CV: RRR, no MRG Lungs ;rales anteriorly. decreased breath sounds at L base Abd: obese . Abd wall edema 1+. NL BS Ext : worsening pitting edema on LE , Chronic hyperpigmentation and skin thickening. ASSESSMENT AND PLAN: 76 y/o man with h/o Severe cardiomypathy( non ischemic ) ,with severely reduced EF, and PULm HTN, Diastolic dysfunction , A fib on AC, who presented with cardiac arrest (V fib ) from his intermediate 1- S/P cardiac arrest: due to severe R sided cardiomyopathy. - cont pressor support( dopamine 5 mcg/hr, and levophed 10 mcg /min ) . taper as tolerated to keep MAP > 65 - cont Amio 400 daily - off hydrocortisone 2- Severe non-ischemic cardiomypoathy, with acute on chronic systolic and diastolic heart failure - HD today - cont IV lasix - monitor I&Os 3- Acute hypoxic resp failure :due to CHF , Left PNA ( sputum cx with MRSA ) - stop ABx today. per ID . - cont Vent support . 4- Acute on chronic anemia: Hb trending down. - expect Hb to be lower tomorrow. since he is getting HD today , will give a unit of blood - fecal OB + . monitor - cont to hold heparin gtt 5- A fib: rate is controlled , paced rhythm - monitor rate - cont amio 5-SUJATA on CKD : cont HD. DVT px: SCDS, not being applied
--- NOTE | 2017-04-06 13:57 | PN ---
Physical Exam: SUBJECTIVE: Patient seen and examined at bedside. Off sedation. More awake and alert. Moving extremities. OBJECTIVE: Vital Signs Period Temp Pulse Resp BP Sys/Krishnan Pulse Ox Last 24 Hr 98 F-99.5 F 71-99 20-32 90-123/47-87 99-100 GENERAL:trached, awake and alert. . HEAD: Normal with no signs of trauma. LUNGS: bilateral rales, decreased breath sound HEART: RRR,no M/G/R ABDOMEN: obese, distended. 1+edema EXTREMITIES:3+ pitting edema bilat. SKIN: chronic LE skin changes. Laboratory Results - last 24 hr 04/02/17 04/02/17 04/05/17 07:35 09:15 12:16 WBC RBC Hgb Hct MCV MCHC RDW Plt Count MPV Neutrophils % Lymphocytes % Monocytes % Eosinophils % Basophils % Sodium Potassium Chloride Carbon Dioxide Anion Gap BUN Creatinine Creat Clearance w eGFR POC Glucometer [phone] Random Glucose Calcium Phosphorus Magnesium Total Bilirubin AST ALT Alkaline Phosphatase Total Protein Albumin Random Vancomycin Blood Type AB POSITIVE AB POSITIVE Antibody Screen Negative Crossmatch See Detail See Detail 04/05/17 04/05/17 04/06/17 16:55 21:36 05:35 WBC 13.1 H RBC 2.60 L Hgb 7.2 L Hct 21.4 L MCV 82.5 MCHC 33.6 RDW 19.0 H Plt Count 199 MPV 8.3 Neutrophils % 87.0 H Lymphocytes % 3.9 L Monocytes % 7.4 Eosinophils % 1.0 Basophils % 0.7 Sodium Potassium Chloride Carbon Dioxide Anion Gap BUN Creatinine Creat Clearance w eGFR POC Glucometer 129.24359 168.64466 Random Glucose Calcium Phosphorus Magnesium Total Bilirubin AST ALT Alkaline Phosphatase Total Protein Albumin Random Vancomycin Blood Type Antibody Screen Crossmatch 04/06/17 04/06/17 04/06/17 05:35 05:35 06:03 WBC RBC Hgb Hct MCV MCHC RDW Plt Count MPV Neutrophils % Lymphocytes % Monocytes % Eosinophils % Basophils % Sodium 138 Potassium 3.8 Chloride 97 L Carbon Dioxide 26 Anion Gap 15 BUN 58 H Creatinine 3.7 H Creat Clearance w eGFR 15.97 POC Glucometer 204.71174 Random Glucose 149 H Calcium 7.5 L Phosphorus 3.9 D Magnesium 2.3 Total Bilirubin 0.9 AST 18 ALT 15 Alkaline Phosphatase 69 Total Protein 5.5 L Albumin 2.2 L Random Vancomycin 14.494 Blood Type Antibody Screen Crossmatch 04/06/17 12:07 WBC RBC Hgb Hct MCV MCHC RDW Plt Count MPV Neutrophils % Lymphocytes % Monocytes % Eosinophils % Basophils % Sodium Potassium Chloride Carbon Dioxide Anion Gap BUN Creatinine Creat Clearance w eGFR POC Glucometer 189.92137 Random Glucose Calcium Phosphorus Magnesium Total Bilirubin AST ALT Alkaline Phosphatase Total Protein Albumin Random Vancomycin Blood Type Antibody Screen Crossmatch Active Medications Generic Name Dose Route Start Last Admin Trade Name Lor PRN Reason Stop Dose Admin Amiodarone HCl 400 mg 03/26/17 10:00 04/06/17 09:23 Cordarone - PO 400 mg DAILY SARAH Administration Atorvastatin Calcium 80 mg 03/18/17 09:45 04/05/17 22:01 Lipitor - NGT 80 mg HS SARAH Administration Chlorhexidine Gluconate 1 applic 03/17/17 22:00 04/05/17 22:01 Hibiclens For Decolonization - TP 1 applic HS SARAH Administration Chlorhexidine Gluconate 15 ml 03/18/17 22:15 04/06/17 09:23 Peridex - MM 15 ml BID SARAH Administration Furosemide 80 mg 03/30/17 14:00 04/06/17 06:13 Lasix Injection - IVPUSH 80 mg BID@0600,1400 SARAH Administration Norepinephrine Bitartrate 8, 258 mls @ 15.48 mls/hr 03/30/17 08:15 04/06/17 09: 21 000 mcg/ Dextrose IV 9.67 mls/hr TITR SARAH Administration Protocol 8 MCG/MIN Dopamine HCl 800,000 mcg/ 250 mls @ 22.98 mls/hr 03/31/17 11:00 04/05/17 19:00 Sodium Chloride IV 5 mcg/kg/min TITR SARAH Titration Protocol 8 MCG/KG/MIN Propofol 100 mls @ 4.707 mls/hr 04/05/17 13:45 04/05/17 22:01 Diprivan - IVPUSH Not Given TITR SARAH Protocol 5 MCG/KG/MIN Insulin Aspart 1 vial 03/24/17 07:00 04/06/17 12:14 Novolog Vial Sliding Scale - SQ 2 units ACHS SARAH Administration Protocol Ranitidine HCl 150 mg 04/07/17 11:45 Zantac Oral Solution - NGT DAILY SARAH Scopolamine HBr 1 patch 04/03/17 22:00 04/03/17 23:00 Transderm-Scop - TD 1 patch Q3D@2200 SARAH Administration ASSESSMENT/PLAN: 76 y/o M with signifcant PMHx of CHF, HTN, Afib, and pulmonary HTN admitted from residential s/p cardiac arrest 2/2 vfib admitted to ICU Problem List - Problems (1) Cardiac arrest Assessment/Plan: * s/p trach * currently on Levo 10mcg/hr and Dopa 5mcg/hr * Maintaining MAP > 65 * Amiodarone 400mg PO daily * Continue ICU monitoring. (2) Positive culture findings in sputum Assessment/Plan: * ABx held as per ID * continue vent support. * will repeat AM labs. (3) Acute on chronic diastolic CHF (congestive heart failure) Assessment/Plan: * Lasix 80mg BID IVPUSH * HD with UF today * monitor I/O's * daily weights. (4) CKD (chronic kidney disease) Assessment/Plan: * Stage 4 GFR 23 * Dialyzed today * continue Lasix 80mg IV BID (5) A-fib Assessment/Plan: * Currently paced * Continue Amiodarone * AC with heparin ggt--held for possible acute bleed. * Digoxin held due to renal function. (6) DVT prophylaxis Assessment/Plan: * Heparin GGT--held * SCD's bilat. Visit type - Emergency Visit Emergency Visit: Yes ED Registration Date: 03/17/17 Care time: The patient presented to the Emergency Department on the above date and was hospitalized for further evaluation of their emergent condition. - New Patient This patient is new to me today: No - Critical Care Critical Care patient: Yes Total Critical Care Time (in minutes): 33 Critical Care Statement: The care of this patient involved high complexity decision making to prevent further life threatening deterioration of the patient 's condition and/or to evalute & treat vital organ system(s) failure or risk of failure.
--- NOTE | 2017-04-06 13:58 | PN ---
Teaching Attending Note Name of Resident: Fani Allison ATTENDING PHYSICIAN STATEMENT I saw and evaluated the patient. I reviewed the resident's note and discussed the case with the resident. I agree with the resident's findings and plan as documented. SUBJECTIVE: Patient seen and examined in the ICU. Awake and interactive. Remains on pressors (NE & Dopamine). Intake & Output 04/03/17 04/04/17 04/05/17 04/06/17 23:59 23:59 23:59 23:59 Intake Total 1766.6 1434.4 1844.2 735.6 Output Total 100 400 400 100 Balance 1666.6 1034.4 1444.2 635.6 Weight 334 lb 5 oz 339 lb 11.717 oz 345 lb 14.4 oz 345 lb 8 oz Last Vital Signs Temp Pulse Resp BP Pulse Ox 99.4 F 84 26 H 123/87 99 04/06/17 06:00 04/06/17 10:04 04/06/17 11:46 04/06/17 09:21 04/06/17 10:04 Active Medications Amiodarone HCl (Cordarone -) 400 mg PO DAILY [facility] Last Admin: 04/06/17 09:23 Dose: 400 mg Atorvastatin Calcium (Lipitor -) 80 mg NGT HS [facility] Last Admin: 04/05/17 22:01 Dose: 80 mg Chlorhexidine Gluconate (Hibiclens For Decolonization -) 1 applic TP HS SARAH Last Admin: 04/05/17 22:01 Dose: 1 applic Chlorhexidine Gluconate (Peridex -) 15 ml MM BID [facility] Last Admin: 04/06/17 09:23 Dose: 15 ml Furosemide (Lasix Injection -) 80 mg IVPUSH BID@0600,1400 SARAH Last Admin: 04/06/17 06:13 Dose: 80 mg Norepinephrine Bitartrate 8, (000 mcg/ Dextrose) 258 mls @ 15.48 mls/hr IV TITR SARAH; 8 MCG/MIN PRN Reason: Protocol Last Admin: 04/06/17 09:21 Dose: 9.67 mls/hr Dopamine HCl 800,000 mcg/ (Sodium Chloride) 250 mls @ 22.98 mls/hr IV TITR SARAH ; 8 MCG/KG/MIN PRN Reason: Protocol Last Titration: 04/05/17 19:00 Dose: 5 mcg/kg/min Propofol (Diprivan -) 100 mls @ 4.707 mls/hr IVPUSH TITR SARAH; 5 MCG/KG/MIN PRN Reason: Protocol Last Admin: 04/05/17 22:01 Dose: Not Given Insulin Aspart (Novolog Vial Sliding Scale -) 1 vial SQ ACHS SARAH PRN Reason: Protocol Last Admin: 04/06/17 12:14 Dose: 2 units Ranitidine HCl (Zantac Oral Solution -) 150 mg NGT DAILY [facility] Scopolamine HBr (Transderm-Scop -) 1 patch TD Q3D@2200 [facility] Last Admin: 04/03/17 23:00 Dose: 1 patch Gen: Awake and interactive Heart: RRR, +systolic murmur Lung: scattered rhonchi Abd: soft, obese, edematous Ext: + edema Laboratory Results - last 24 hr 04/02/17 04/02/17 04/05/17 07:35 09:15 12:16 WBC RBC Hgb Hct MCV MCHC RDW Plt Count MPV Neutrophils % Lymphocytes % Monocytes % Eosinophils % Basophils % Sodium Potassium Chloride Carbon Dioxide Anion Gap BUN Creatinine Creat Clearance w eGFR POC Glucometer 206.49035 Random Glucose Calcium Phosphorus Magnesium Total Bilirubin AST ALT Alkaline Phosphatase Total Protein Albumin Random Vancomycin Blood Type AB POSITIVE AB POSITIVE Antibody Screen Negative Crossmatch See Detail See Detail 04/05/17 04/05/17 04/06/17 16:55 21:36 05:35 WBC 13.1 H RBC 2.60 L Hgb 7.2 L Hct 21.4 L MCV 82.5 MCHC 33.6 RDW 19.0 H Plt Count 199 MPV 8.3 Neutrophils % 87.0 H Lymphocytes % 3.9 L Monocytes % 7.4 Eosinophils % 1.0 Basophils % 0.7 Sodium Potassium Chloride Carbon Dioxide Anion Gap BUN Creatinine Creat Clearance w eGFR POC Glucometer 129.12183 168.40083 Random Glucose Calcium Phosphorus Magnesium Total Bilirubin AST ALT Alkaline Phosphatase Total Protein Albumin Random Vancomycin Blood Type Antibody Screen Crossmatch 04/06/17 04/06/17 04/06/17 05:35 05:35 06:03 WBC RBC Hgb Hct MCV MCHC RDW Plt Count MPV Neutrophils % Lymphocytes % Monocytes % Eosinophils % Basophils % Sodium 138 Potassium 3.8 Chloride 97 L Carbon Dioxide 26 Anion Gap 15 BUN 58 H Creatinine 3.7 H Creat Clearance w eGFR 15.97 POC Glucometer 204.90949 Random Glucose 149 H Calcium 7.5 L Phosphorus 3.9 D Magnesium 2.3 Total Bilirubin 0.9 AST 18 ALT 15 Alkaline Phosphatase 69 Total Protein 5.5 L Albumin 2.2 L Random Vancomycin 14.494 Blood Type Antibody Screen Crossmatch 04/06/17 12:07 WBC RBC Hgb Hct MCV MCHC RDW Plt Count MPV Neutrophils % Lymphocytes % Monocytes % Eosinophils % Basophils % Sodium Potassium Chloride Carbon Dioxide Anion Gap BUN Creatinine Creat Clearance w eGFR POC Glucometer 189.60038 Random Glucose Calcium Phosphorus Magnesium Total Bilirubin AST ALT Alkaline Phosphatase Total Protein Albumin Random Vancomycin Blood Type Antibody Screen Crossmatch ASSESSMENT AND PLAN: S/P Vfib Cardiac Arrest Acute on Chronic Hypoxic Respiratory Failure S/P Tracheostomy Acute on Chronic Diastolic Heart Failure Severe Pulmonary HTN S/P BiV PPM CAD +Troponins Atrial Fibrillation HTN CKD Hyperlipidemia DM COPD Morbid Obesity Obstructive Sleep Apnea Anemia - Currently off ABX - Amiodarone - Normal transfusion thresholds - monitor H/H - Off Hydrocortisone - titrate levophed, dopamine gtts to maintain MAP >65 - monitor urine output, creatinine - taper FiO2 to keep SpO2 >90% - spontaneous breathing trials as tolerated - enteral feeds - DVT/GI prophylaxis - LTAC assessment Dr Gomez critical care time spent in reviewing chart, evaluating patient and formulating plan 40 min
[2017-04-06] MEDS: PROPOFOL 100 ML IVPUSH SCH (14:27)
[2017-04-06] MEDS ORDERED: MIDAZOLAM HCL 2 MG/2 ML SINGLE DOSE VIAL IVPUSH ONE (14:59)
[2017-04-06] MEDS ORDERED: morphine CARPU-JECT 4 MG/1 ML DISP.SYRIN IVPUSH ONE (15:11)
[2017-04-06] MEDS ORDERED: LIDOCAINE HCL 1%, 10 MG/ML (20ML VIAL) ONE (15:18)
--- NOTE | 2017-04-06 15:26 | PN ---
Progress Note, Physician History of Present Illness: The patient is a 76 year old black male, with a significant past medical history of diastolic CHF (severely reduced RVEF of uncertain etiology; severely dilated RV on 02/2017 ECHO, per pt's cardiovascular rn at [facility]), (non- obstructive CAD by 2008 coronary angiogram), [employer] "biventricular pacemaker , COPD, HTN, HLD, Atrial Fibrillation, renal insufficiency, Morbid obesity, Prostate CA, Sleep apnea on O2, generalzied weakness (wheelchair-bound), Glaucoma BIBA from [facility] s/p Cardiac arrest. As per EMS, the patient was initially seated in PT doing leg exercises when he became unresponsive. Patient was brought back into his room in the HI and chest compressions were initiated by nursing staff. Down time was between 4-5 minutes. patient was shocked once and ROSC was noted. As per EMS, patient was given 150 mg of Amiodarone in the field and was brought into the ED for further evaluation. Upon arrival to the ED, patients (health care proxy) gave consent to intubate over the telephone. 2:48 PM- 20 mg of Etomidate given through IV 2:49 PM- 150 mg of Succinylcholine given through IV 2:50 PM- Patient intubated with 7.5 ET tube, positioned 24 cm at the lip Pt's says pt is followed closely by [facility] cardiac groups. I spoke by telephone with pt's cardiovascular rn, who provided much of the above history. - Current Medication List Current Medications: Active Medications Amiodarone HCl (Cordarone -) 400 mg PO DAILY [facility] Last Admin: 04/06/17 09:23 Dose: 400 mg Atorvastatin Calcium (Lipitor -) 80 mg NGT [facility] Last Admin: 04/05/17 22:01 Dose: 80 mg Chlorhexidine Gluconate (Hibiclens For Decolonization -) 1 applic TP [facility] Last Admin: 04/05/17 22:01 Dose: 1 applic Chlorhexidine Gluconate (Peridex -) 15 ml MM BID [facility] Last Admin: 04/06/17 09:23 Dose: 15 ml Furosemide (Lasix Injection -) 80 mg IVPUSH BID@0600,1400 [facility] Last Admin: 04/06/17 14:19 Dose: 80 mg Norepinephrine Bitartrate 8, (000 mcg/ Dextrose) 258 mls @ 15.48 mls/hr IV TITR SARAH; 8 MCG/MIN PRN Reason: Protocol Last Admin: 04/06/17 09:21 Dose: 9.67 mls/hr Dopamine HCl 800,000 mcg/ (Sodium Chloride) 250 mls @ 22.98 mls/hr IV TITR SARAH ; 8 MCG/KG/MIN PRN Reason: Protocol Last Admin: 04/06/17 11:00 Dose: Not Given Propofol (Diprivan -) 100 mls @ 4.707 mls/hr IVPUSH TITR SARAH; 5 MCG/KG/MIN PRN Reason: Protocol Last Admin: 04/06/17 14:27 Dose: Not Given Insulin Aspart (Novolog Vial Sliding Scale -) 1 vial SQ ACHS SARAH PRN Reason: Protocol Last Admin: 04/06/17 12:14 Dose: 2 units Ranitidine HCl (Zantac Oral Solution -) 150 mg NGT DAILY SARAH Scopolamine HBr (Transderm-Scop -) 1 patch TD Q3D@2200 [facility] Last Admin: 04/03/17 23:00 Dose: 1 patch - Objective Vital Signs: Vital Signs Temperature 99.4 F 04/06/17 06:00 Pulse Rate 84 04/06/17 10:04 Respiratory Rate 24 04/06/17 14:01 Blood Pressure 123/87 04/06/17 09:21 O2 Sat by Pulse Oximetry (%) 99 04/06/17 10:04 Eyes: Yes: WNL, Conjunctiva Clear, EOM Intact HENT: Yes: WNL, Atraumatic, Normocephalic Neck: Yes: WNL, Supple, Trachea Midline Cardiovascular: Yes: WNL, Regular Rate and Rhythm, S1, S2 Respiratory: Yes: Mechanically Ventilated, Other (s/p tracheostomy) Gastrointestinal: Yes: WNL, Normal Bowel Sounds Genitourinary: Yes: WNL Musculoskeletal: Yes: WNL Extremities: Yes: WNL Edema: Yes Edema: LUE: 2+, RUE: 2+, LLE: 2+, RLE: 2+ Integumentary: Yes: WNL Neurological: Yes: Alert ...Motor Strength: WNL Psychiatric: Yes: WNL Labs: CBC, BMP 04/06/17 05:35 04/06/17 05:35 INR, PTT INR 1.25 (0.82-1.09) H 04/02/17 05:30 Assessment/Plan 76 year old man with a history of Chronic diastolic CHF, Chronic R sided CHF, non-obstructive CAD on cardiac cath 2008, BiV PPM, COPD, HTN, HLD, Afib, CKD, MARY admitted with cardiac arrest, resuscitated with CPR, shock x 1, amiodarone. Cardiac arrest- -echo showed normal LV systolic function, dilated RV with reduced function, mod PAH -still requiring pressors, wean as tolerates -cont amiodarone 400mg daily, will need to clarify plan for loading and maintenance dose with EP -s/p tracheostomy -cont HD as needed and cont Lasix given urine output -monitor I/Os, daily weights, bun/creat, electrolytes and replete as needed -Keep K=4 and Mg=2 -receiving Abx for possible PNA Acute on chronic diastolic/R sided CHF -as above HTN-on pressors -wean pressors as tolerates HLD -cont statin
--- NOTE | 2017-04-06 15:42 | PROC ---
Central Line Insertion Indication: Other (HD access) Risks and Benefits Explained: Yes Consent on Chart: Yes Central Line: Dialysis Cath, Tri Lumen Anesthesia: 1% Lidocaine Sterile Technique: Yes Ultrasound Guided Assistance: Yes Position: Right Internal Jugular Post Insertion: Yes: Bilateral Breath Sounds, Bilateral Chest Expansion, Chest X-Ray Ordered Sterile Dressing Applied: Yes
--- NOTE | 2017-04-06 15:53 | PN ---
Physical Exam: SUBJECTIVE: Patient seen and examined. He is awake, no overnight events. OBJECTIVE: Vital Signs Period Temp Pulse Resp BP Sys/Krishnan Pulse Ox Last 24 Hr 98.9 F-99.5 F 71-99 20-32 90-123/47-87 99-100 GENERAL: The patient is awake, on mechanical ventilation. HEAD: Normal with no signs of trauma. EYES: sclera anicteric, conjunctiva clear. ENT: moist mucous membranes, trachea. NECK: Trachea midline, full range of motion, supple. LUNGS: Breath sounds equal, coarse breath sounds bilaterally, crackles B/L, no accessory muscle use. HEART: Regular rate and rhythm, S1, S2 without murmur, rub or gallop. ABDOMEN: Obese, soft, nontender, distended, normoactive bowel sounds, no guarding, no rebound, no masses, edema present. EXTREMITIES: 2+ pulses, warm, 2+ edema in LE and abdomen. NEUROLOGICAL: No facial asymmetry, following commands, motor 1/5 in upper extremities, 0/5 in lower extremities, gait not observed. PSYCH: Awake. Ridley cath, draining. Rectal tube. Dialysis cath inserted 04/06/17. Central line inserted 03/21/17 will remove today. Laboratory Results - last 24 hr 04/02/17 04/02/17 04/05/17 07:35 09:15 16:55 WBC RBC Hgb Hct MCV MCHC RDW Plt Count MPV Neutrophils % Lymphocytes % Monocytes % Eosinophils % Basophils % Sodium Potassium Chloride Carbon Dioxide Anion Gap BUN Creatinine Creat Clearance w eGFR POC Glucometer 129.81405 Random Glucose Calcium Phosphorus Magnesium Total Bilirubin AST ALT Alkaline Phosphatase Total Protein Albumin Random Vancomycin Blood Type AB POSITIVE AB POSITIVE Antibody Screen Negative Crossmatch See Detail See Detail 04/05/17 04/06/17 04/06/17 21:36 05:35 05:35 WBC 13.1 H RBC 2.60 L Hgb 7.2 L Hct 21.4 L MCV 82.5 MCHC 33.6 RDW 19.0 H Plt Count 199 MPV 8.3 Neutrophils % 87.0 H Lymphocytes % 3.9 L Monocytes % 7.4 Eosinophils % 1.0 Basophils % 0.7 Sodium 138 Potassium 3.8 Chloride 97 L Carbon Dioxide 26 Anion Gap 15 BUN 58 H Creatinine 3.7 H Creat Clearance w eGFR 15.97 POC Glucometer 168.70764 Random Glucose 149 H Calcium 7.5 L Phosphorus 3.9 D Magnesium 2.3 Total Bilirubin 0.9 AST 18 ALT 15 Alkaline Phosphatase 69 Total Protein 5.5 L Albumin 2.2 L Random Vancomycin Blood Type Antibody Screen Crossmatch 04/06/17 04/06/17 04/06/17 05:35 06:03 12:07 WBC RBC Hgb Hct MCV MCHC RDW Plt Count MPV Neutrophils % Lymphocytes % Monocytes % Eosinophils % Basophils % Sodium Potassium Chloride Carbon Dioxide Anion Gap BUN Creatinine Creat Clearance w eGFR POC Glucometer 204.36341 189.28764 Random Glucose Calcium Phosphorus Magnesium Total Bilirubin AST ALT Alkaline Phosphatase Total Protein Albumin Random Vancomycin 14.494 Blood Type Antibody Screen Crossmatch 04/06/17 14:09 WBC RBC Hgb Hct MCV MCHC RDW Plt Count MPV Neutrophils % Lymphocytes % Monocytes % Eosinophils % Basophils % Sodium Potassium Chloride Carbon Dioxide Anion Gap BUN Creatinine Creat Clearance w eGFR POC Glucometer Random Glucose Calcium Phosphorus Magnesium Total Bilirubin AST ALT Alkaline Phosphatase Total Protein Albumin Random Vancomycin Blood Type Antibody Screen Crossmatch See Detail Active Medications Generic Name Dose Route Start Last Admin Trade Name Freq PRN Reason Stop Dose Admin Amiodarone HCl 400 mg 03/26/17 10:00 04/06/17 09:23 Cordarone - PO 400 mg DAILY SARAH Administration Atorvastatin Calcium 80 mg 03/18/17 09:45 04/05/17 22:01 Lipitor - NGT 80 mg HS SARAH Administration Chlorhexidine Gluconate 1 applic 03/17/17 22:00 04/05/17 22:01 Hibiclens For Decolonization - TP 1 applic HS SARAH Administration Chlorhexidine Gluconate 15 ml 03/18/17 22:15 04/06/17 09:23 Peridex - MM 15 ml BID SARAH Administration Furosemide 80 mg 03/30/17 14:00 04/06/17 14:19 Lasix Injection - IVPUSH 80 mg BID@0600,1400 SARAH Administration Norepinephrine Bitartrate 8, 258 mls @ 15.48 mls/hr 03/30/17 08:15 04/06/17 09: 21 000 mcg/ Dextrose IV 9.67 mls/hr TITR SARAH Administration Protocol 8 MCG/MIN Dopamine HCl 800,000 mcg/ 250 mls @ 22.98 mls/hr 03/31/17 11:00 04/06/17 11:00 Sodium Chloride IV Not Given TITR SARAH Protocol 8 MCG/KG/MIN Propofol 100 mls @ 4.707 mls/hr 04/05/17 13:45 04/06/17 14:27 Diprivan - IVPUSH Not Given TITR [facility] Protocol 5 MCG/KG/MIN Insulin Aspart 1 vial 03/24/17 07:00 04/06/17 12:14 Novolog Vial Sliding Scale - SQ 2 units ACHS [facility] Administration Protocol Ranitidine HCl 150 mg 04/07/17 11:45 Zantac Oral Solution - NGT DAILY [facility] Scopolamine HBr 1 patch 04/03/17 22:00 04/03/17 23:00 Transderm-Scop - TD 1 patch Q3D@2200 [facility] Administration ASSESSMENT/PLAN: 76 yr old man with extensive cardiac and pulmonary history now with renal insufficiency and sepsis s/p cardiac arrest. - hgb/hct again low without overt signs of bleeding, will transfuse again today Neuro awake, not following commands, Pulmonary s/p trach placement 04/02 f/u CXR today after dialysis cath placement taper FiO2 to maintain O2 sat 90% Cardiovascular Hypotensive requiring 2 pressors dopamine 8mcg/hr + norepi 8 mcg/hr maintain MAP >65 amiodarone 400mg po qdaily afib - paced rhythm (biventricular pacemaker) heparin drip for anticoagulation - held hydrocortisone initiated 03/22 for refractory shock following cardiac arrest, slow taper off HLD: lipitor 80mg HS po f/u Cardiology consultation Infectious Disease wbc count trending down, today 13.1 off abx today f/u ID recommendation Renal oliguiric renal insufficiency with volume overload, avoid adding additional fluids when possible plan transfusion d/t low Hgb/hct, maintain hgb >7.0 Urine output decreased, continue lasix BID 80mg IVpb with dialysis cather removed, monitor elecrolytes, will have HD today f/u nephrology consultation Hematological low hgb/hct, will transfuse today FOBT ordered s/p epogen administeration GI tube feeding; Glucerna 1.5 protonix daily for prophylaxis banana flakes daily for loose stools Endocrine DM II, HgbA1c 6.4 Glucerna feeds with NISS DVT PPCX: medical AC held due to acute anemia, edema in b/l le unable to use SCD 's Diet: tube feeding Disposition: monitor in ICU Problem List - Problems (1) A-fib Code(s): I48.91 - UNSPECIFIED ATRIAL FIBRILLATION Qualifiers: Qualified Code(s): I48.91 - Unspecified atrial fibrillation (2) Acute on chronic diastolic CHF (congestive heart failure) Code(s): I50.33 - ACUTE ON CHRONIC DIASTOLIC (CONGESTIVE) HEART FAILURE (3) Anemia Code(s): D64.9 - ANEMIA, UNSPECIFIED (4) CKD (chronic kidney disease) Code(s): N18.9 - CHRONIC KIDNEY DISEASE, UNSPECIFIED Qualifiers: Qualified Code(s): N18.4 - Chronic kidney disease, stage 4 (severe) (5) Cardiac arrest Code(s): I46.9 - CARDIAC ARREST, CAUSE UNSPECIFIED (6) DVT prophylaxis Code(s): EOQ3007 - (7) HTN (hypertension) Code(s): I10 - ESSENTIAL (PRIMARY) HYPERTENSION (8) Hyperkalemia Code(s): E87.5 - HYPERKALEMIA (9) Hyperlipidemia Code(s): E78.5 - HYPERLIPIDEMIA, UNSPECIFIED (10) 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 hypertension Code(s): I27.2 - OTHER SECONDARY PULMONARY HYPERTENSION (11) Sleep apnea Code(s): G47.30 - SLEEP APNEA, UNSPECIFIED Visit type - Emergency Visit Emergency Visit: Yes ED Registration Date: 03/17/17 Care time: The patient presented to the Emergency Department on the above date and was hospitalized for further evaluation of their emergent condition. - New Patient This patient is new to me today: No - Critical Care Critical Care patient: Yes Total Critical Care Time (in minutes): 50 Critical Care Statement: The care of this patient involved high complexity decision making to prevent further life threatening deterioration of the patient 's condition and/or to evalute & treat vital organ system(s) failure or risk of failure.
--- NOTE | 2017-04-06 17:27 | HOSP ---
Subjective - Review of Symptoms Events since last encounter: The pt had central catheter removed and he started bleeding from the site. Subjective: The pt is awake, not following commands. Physical Examination Vital Signs: Vital Signs Temperature 99.4 F 04/06/17 06:00 Pulse Rate 84 04/06/17 10:04 Respiratory Rate 24 04/06/17 14:01 Blood Pressure 123/87 04/06/17 09:21 O2 Sat by Pulse Oximetry (%) 99 04/06/17 10:04 Constitutional: Yes: No Distress, Calm Eyes: Yes: Conjunctiva Clear, EOM Intact HENT: Yes: Atraumatic, Normocephalic Neck: Yes: Trachea Midline, Other (tracheostomy tube) Cardiovascular: Yes: Regular Rate and Rhythm. No: Murmur Respiratory: Yes: Mechanically Ventilated, Other (coarse breath sounds) Gastrointestinal: Yes: Normal Bowel Sounds, Soft Extremities: Yes: Other (peripheral edema) Edema: LUE: 1+, RUE: 1+, LLE: 2+, RLE: 2+ Labs: CBC, BMP 04/06/17 05:35 04/06/17 05:35 Hospitalist Encounter Assessment: 76 yr old man with extensive cardiac and pulmonary history now with renal insufficiency and sepsis s/p cardiac arrest. Outcome: The pressure was applied for at least 15 minutes and the pt had hemostat applied. In the result the bleeding stopped. We ordered 1 unit of FFP and DDAVP. He will also get 1 unit of PRBC that was ordered before and undergo dialysis as scheduled. I discussed with Dr. Santoro. Primary Physician Notified: Harmeet Santoro Recommendations/Interventions: DDAVP, FFP, PRBC. Visit type - Emergency Visit Emergency Visit: Yes ED Registration Date: 03/17/17 Care time: The patient presented to the Emergency Department on the above date and was hospitalized for further evaluation of their emergent condition. - New Patient This patient is new to me today: No - Critical Care Critical Care patient: Yes Total Critical Care Time (in minutes): 50 Critical Care Statement: The care of this patient involved high complexity decision making to prevent further life threatening deterioration of the patient 's condition and/or to evalute & treat vital organ system(s) failure or risk of failure.
[2017-04-06] MEDS ORDERED: DESMOPRESSIN ACETATE 4 MCG/ML AMP IVPB ONE (17:30)
[2017-04-06] MEDS: ATORVASTATIN CA 80 MG TABLET (FP) NGT SCH (21:39)
[2017-04-06] MEDS: CHLORHEXIDINE GLUCONATE 4% CLEANSER FOR DECOLONIZATION TP SCH (21:39)
[2017-04-06] MEDS: BACITRACIN 15 GM TUBE TOPICAL OINTMENT TP SCH (21:39)
[2017-04-06] MEDS: SCOPOLAMINE HYDROBROMIDE 1 PATCH PATCH.TD72 TD SCH (21:39)
[2017-04-07] MEDS: FUROSEMIDE 40 MG/4 ML INJECTABLE VIAL IVPUSH SCH ×2 (06:54→14:34)
[2017-04-07] MEDS: BANATROL PLUS POWDER PACKET PO SCH ×3 (06:54→21:52)
[2017-04-07 06:57] LABS: MCH 28.3 pg (25.7-33.7); MCHC 33.9 g/dl (32.0-35.9); MEAN CELL VOLUME 83.7 fl (80-96); MEAN PLT VOLUME 7.8 fl (7.5-11.1); PLATELET COUNT 204 K/MM3 (134-434); RDW 18.7 % (11.9-15.9); WHITE BLOOD COUNT 9.8 K/mm3 (4.0-10.0)
[2017-04-07] MEDS: INSULIN SLIDING SCALE (NOVOLOG) 1 VIAL SQ SCH ×4 (07:00→22:13)
[2017-04-07 07:10] LABS: INR 1.37 (0.82-1.09); PROTHROMBIN TIME (PATIENT) 15.2 SEC (9.98-11.88)
[2017-04-07] MEDS ORDERED: NOREPINEPHRINE BITARTRATE 4 MG/4 ML ML IV ONE ×2 (08:07→18:20)
[2017-04-07] MEDS: DEXTROSE 5% IV SCH ×2 (08:21→22:50)
[2017-04-07] MEDS: WATER IV SCH ×2 (08:21→22:50)
[2017-04-07] MEDS: NOREPINEPHRINE BITARTRATE IV SCH ×2 (08:21→22:50)
[2017-04-07 09:05] LABS: CALCIUM 7.7 mg/dL (8.5-10.1); COCKROFT - GAULT 31.28; CREATININE 4.2 mg/dL (0.7-1.3); MAGNESIUM 2.4 mg/dL (1.8-2.4); PHOSPHOROUS 4.3 mg/dL (2.5-4.9)
[2017-04-07] MEDS: CHLORHEXIDINE GLUCONATE 0.12% 15ML CUP MM SCH ×2 (09:25→21:52)
[2017-04-07] MEDS: AMIODARONE HCL 200 MG TABLET (FP) PO SCH (09:25)
[2017-04-07] MEDS: BACITRACIN 15 GM TUBE TOPICAL OINTMENT TP SCH (09:26)
[2017-04-07] MEDS ORDERED: RANITIDINE HCL 150 MG/10 ML UNIT-DOSE CUP PEG SCH (10:45)
--- NOTE | 2017-04-07 11:54 | PN ---
Teaching Attending Note Name of Resident: Fani Allison ATTENDING PHYSICIAN STATEMENT I saw and evaluated the patient. I reviewed the resident's note and discussed the case with the resident. I agree with the resident's findings and plan as documented. SUBJECTIVE: Patient seen and examined in the ICU. Awake and interactive. Remains on NE at 12 mcq for hemodynamic support. Intake & Output 04/04/17 04/05/17 04/06/17 04/07/17 23:59 23:59 23:59 23:59 Intake Total 1434.4 1844.2 1655.6 444 Output Total 400 400 250 100 Balance 1034.4 1444.2 1405.6 344 Weight 339 lb 11.717 oz 345 lb 14.4 oz 345 lb 8 oz 336 lb 6.4 oz Last Vital Signs Temp Pulse Resp BP Pulse Ox 98.4 F 77 14 97/63 100 04/07/17 10:00 04/07/17 10:00 04/07/17 10:00 04/07/17 10:00 04/07/17 09:54 Active Medications Amiodarone HCl (Cordarone -) 400 mg PO DAILY [facility] Last Admin: 04/07/17 09:25 Dose: 400 mg Atorvastatin Calcium (Lipitor -) 80 mg NGT HS [facility] Last Admin: 04/06/17 21:39 Dose: 80 mg Bacitracin (Bacitracin -) 1 applic TP DAILY [facility] Last Admin: 04/07/17 09:26 Dose: 1 applic Chlorhexidine Gluconate (Hibiclens For Decolonization -) 1 applic TP HS [facility] Last Admin: 04/06/17 21:39 Dose: 1 applic Chlorhexidine Gluconate (Peridex -) 15 ml MM BID [facility] Last Admin: 04/07/17 09:25 Dose: 15 ml Furosemide (Lasix Injection -) 80 mg IVPUSH BID@0600,1400 [facility] Last Admin: 04/07/17 06:54 Dose: 80 mg Norepinephrine Bitartrate 8, (000 mcg/ Dextrose) 258 mls @ 15.48 mls/hr IV TITR SARAH; 8 MCG/MIN PRN Reason: Protocol Last Admin: 04/07/17 08:21 Dose: 23.22 mls/hr Dopamine HCl 800,000 mcg/ (Sodium Chloride) 250 mls @ 22.98 mls/hr IV TITR SARAH ; 8 MCG/KG/MIN PRN Reason: Protocol Last Titration: 04/07/17 09:25 Dose: 1 mcg/kg/min Propofol (Diprivan -) 100 mls @ 4.707 mls/hr IVPUSH TITR SARAH; 5 MCG/KG/MIN PRN Reason: Protocol Last Admin: 04/06/17 14:27 Dose: Not Given Insulin Aspart (Novolog Vial Sliding Scale -) 1 vial SQ ACHS SARAH PRN Reason: Protocol Last Admin: 04/07/17 07:00 Dose: 2 units Ranitidine HCl (Zantac Oral Solution -) 150 mg NGT DAILY SARAH Scopolamine HBr (Transderm-Scop -) 1 patch TD Q3D@2200 [facility] Last Admin: 04/06/17 21:39 Dose: 1 patch Gen: Awake and interactive Heart: RRR, +systolic murmur Lung: scattered rhonchi Abd: soft, obese, edematous Ext: + edema Laboratory Results - last 24 hr 04/02/17 04/06/17 04/06/17 09:15 12:07 14:09 WBC RBC Hgb Hct MCV MCHC RDW Plt Count MPV INR PTT (Actin FS) Sodium Potassium Chloride Carbon Dioxide Anion Gap BUN Creatinine POC Glucometer 189.50874 Random Glucose Calcium Phosphorus Magnesium Blood Type AB POSITIVE AB POSITIVE Antibody Screen Negative Crossmatch See Detail See Detail 04/06/17 04/06/17 04/07/17 18:08 21:49 06:25 WBC RBC Hgb Hct MCV MCHC RDW Plt Count MPV INR PTT (Actin FS) 29.6 Sodium Potassium Chloride Carbon Dioxide Anion Gap BUN Creatinine POC Glucometer 157.38323 190.52417 Random Glucose Calcium Phosphorus Magnesium Blood Type Antibody Screen Crossmatch 04/07/17 04/07/17 04/07/17 06:25 06:25 06:25 WBC 9.8 RBC 2.83 L Hgb 8.0 L D Hct 23.7 L MCV 83.7 MCHC 33.9 RDW 18.7 H Plt Count 204 MPV 7.8 INR 1.37 H PTT (Actin FS) Sodium 136 Potassium 4.1 Chloride 96 L Carbon Dioxide 28 Anion Gap 12 BUN 64 H Creatinine 4.2 H POC Glucometer Random Glucose 141 H Calcium 7.7 L Phosphorus 4.3 Magnesium 2.4 Blood Type Antibody Screen Crossmatch 04/07/17 06:57 WBC RBC Hgb Hct MCV MCHC RDW Plt Count MPV INR PTT (Actin FS) Sodium Potassium Chloride Carbon Dioxide Anion Gap BUN Creatinine POC Glucometer 174.17260 Random Glucose Calcium Phosphorus Magnesium Blood Type Antibody Screen Crossmatch ASSESSMENT AND PLAN: S/P Vfib Cardiac Arrest Acute on Chronic Hypoxic Respiratory Failure S/P Tracheostomy Acute on Chronic Diastolic Heart Failure Severe Pulmonary HTN S/P BiV PPM CAD +Troponins Atrial Fibrillation HTN CKD Hyperlipidemia DM COPD Morbid Obesity Obstructive Sleep Apnea Anemia Laboratory Results - last 24 hr 04/02/17 04/06/17 04/06/17 09:15 12:07 14:09 WBC RBC Hgb Hct MCV MCHC RDW Plt Count MPV INR PTT (Actin FS) Sodium Potassium Chloride Carbon Dioxide Anion Gap BUN Creatinine POC Glucometer 189.13847 Random Glucose Calcium Phosphorus Magnesium Blood Type AB POSITIVE AB POSITIVE Antibody Screen Negative Crossmatch See Detail See Detail 04/06/17 04/06/17 04/07/17 18:08 21:49 06:25 WBC RBC Hgb Hct MCV MCHC RDW Plt Count MPV INR PTT (Actin FS) 29.6 Sodium Potassium Chloride Carbon Dioxide Anion Gap BUN Creatinine POC Glucometer 157.12308 190.69379 Random Glucose Calcium Phosphorus Magnesium Blood Type Antibody Screen Crossmatch 04/07/17 04/07/17 04/07/17 06:25 06:25 06:25 WBC 9.8 RBC 2.83 L Hgb 8.0 L D Hct 23.7 L MCV 83.7 MCHC 33.9 RDW 18.7 H Plt Count 204 MPV 7.8 INR 1.37 H PTT (Actin FS) Sodium 136 Potassium 4.1 Chloride 96 L Carbon Dioxide 28 Anion Gap 12 BUN 64 H Creatinine 4.2 H POC Glucometer Random Glucose 141 H Calcium 7.7 L Phosphorus 4.3 Magnesium 2.4 Blood Type Antibody Screen Crossmatch 04/07/17 06:57 WBC RBC Hgb Hct MCV MCHC RDW Plt Count MPV INR PTT (Actin FS) Sodium Potassium Chloride Carbon Dioxide Anion Gap BUN Creatinine POC Glucometer 174.76851 Random Glucose Calcium Phosphorus Magnesium Blood Type Antibody Screen Crossmatch - Currently off ABX - Amiodarone - Normal transfusion thresholds - monitor H/H - Off Hydrocortisone - titrate levophed, dopamine gtts to maintain MAP >65 - monitor urine output, creatinine - taper FiO2 to keep SpO2 >90% - spontaneous breathing trials as tolerated - enteral feeds - DVT/GI prophylaxis - Check AM Cortisol - LTAC assessment Dr Gomez Critical care time spent in reviewing chart, evaluating patient and formulating plan 40 min
--- NOTE | 2017-04-07 11:57 | PN ---
Physical Exam: SUBJECTIVE: Patient seen and examined in ICU. He is awake, on trach., no overnight events. OBJECTIVE: Vital Signs Period Temp Pulse Resp BP Sys/Krishnan Pulse Ox Last 24 Hr 97.6 F-98.5 F 72-95 14-32 91-140/50-86 100-100 GENERAL: The patient is awake, on mechanical ventilation. HEAD: Normal with no signs of trauma. EYES: sclera anicteric, conjunctiva clear. ENT: moist mucous membranes, trachea. NECK: Trachea midline, full range of motion, supple. LUNGS: Breath sounds equal, coarse breath sounds bilaterally, crackles B/L, no accessory muscle use. HEART: Regular rate and rhythm, S1, S2 without murmur, rub or gallop. ABDOMEN: Obese, soft, nontender, distended, normoactive bowel sounds, no guarding, no rebound, no masses, edema present. EXTREMITIES: 2+ pulses, warm, 2+ edema in LE and abdomen. NEUROLOGICAL: No facial asymmetry, following commands, motor 1/5 in upper extremities, 0/5 in lower extremities, gait not observed. PSYCH: Awake. Ridley cath, draining yellow urine. Rectal tube. Dialysis cath inserted 04/06/17. Central line inserted 03/21/17, removed yesterday. Laboratory Results - last 24 hr 04/02/17 04/06/17 04/06/17 09:15 12:07 14:09 WBC RBC Hgb Hct MCV MCHC RDW Plt Count MPV INR PTT (Actin FS) Sodium Potassium Chloride Carbon Dioxide Anion Gap BUN Creatinine POC Glucometer 189.91555 Random Glucose Calcium Phosphorus Magnesium Blood Type AB POSITIVE AB POSITIVE Antibody Screen Negative Crossmatch See Detail See Detail 04/06/17 04/06/17 04/07/17 18:08 21:49 06:25 WBC RBC Hgb Hct MCV MCHC RDW Plt Count MPV INR PTT (Actin FS) 29.6 Sodium Potassium Chloride Carbon Dioxide Anion Gap BUN Creatinine POC Glucometer 157.82898 190.92968 Random Glucose Calcium Phosphorus Magnesium Blood Type Antibody Screen Crossmatch 04/07/17 04/07/17 04/07/17 06:25 06:25 06:25 WBC 9.8 RBC 2.83 L Hgb 8.0 L D Hct 23.7 L MCV 83.7 MCHC 33.9 RDW 18.7 H Plt Count 204 MPV 7.8 INR 1.37 H PTT (Actin FS) Sodium 136 Potassium 4.1 Chloride 96 L Carbon Dioxide 28 Anion Gap 12 BUN 64 H Creatinine 4.2 H POC Glucometer Random Glucose 141 H Calcium 7.7 L Phosphorus 4.3 Magnesium 2.4 Blood Type Antibody Screen Crossmatch 04/07/17 06:57 WBC RBC Hgb Hct MCV MCHC RDW Plt Count MPV INR PTT (Actin FS) Sodium Potassium Chloride Carbon Dioxide Anion Gap BUN Creatinine POC Glucometer 174.21660 Random Glucose Calcium Phosphorus Magnesium Blood Type Antibody Screen Crossmatch Active Medications Generic Name Dose Route Start Last Admin Trade Name Freq PRN Reason Stop Dose Admin Amiodarone HCl 400 mg 03/26/17 10:00 04/07/17 09:25 Cordarone - PO 400 mg DAILY SARAH Administration Atorvastatin Calcium 80 mg 03/18/17 09:45 04/06/17 21:39 Lipitor - NGT 80 mg HS SARAH Administration Bacitracin 1 applic 04/06/17 18:45 04/07/17 09:26 Bacitracin - TP 1 applic DAILY [facility]AH Administration Chlorhexidine Gluconate 1 applic 03/17/17 22:00 04/06/17 21:39 Hibiclens For Decolonization - TP 1 applic HS [facility]AH Administration Chlorhexidine Gluconate 15 ml 03/18/17 22:15 04/07/17 09:25 Peridex - MM 15 ml BID SARAH Administration Furosemide 80 mg 03/30/17 14:00 04/07/17 06:54 Lasix Injection - IVPUSH 80 mg BID@0600,1400 [facility]AH Administration Norepinephrine Bitartrate 8, 258 mls @ 15.48 mls/hr 03/30/17 08:15 04/07/17 08: 21 000 mcg/ Dextrose IV 23.22 mls/hr TITR SARAH Administration Protocol 8 MCG/MIN Dopamine HCl 800,000 mcg/ 250 mls @ 22.98 mls/hr 03/31/17 11:00 04/07/17 09:25 Sodium Chloride IV 1 mcg/kg/min TITR SARAH Titration Protocol 8 MCG/KG/MIN Propofol 100 mls @ 4.707 mls/hr 04/05/17 13:45 04/06/17 14:27 Diprivan - IVPUSH Not Given TITR [facility] Protocol 5 MCG/KG/MIN Insulin Aspart 1 vial 03/24/17 07:00 05/23/17 07:00 Novolog Vial Sliding Scale - SQ 2 units ACHS [facility] Administration Protocol Ranitidine HCl 150 mg 04/07/17 11:45 Zantac Oral Solution - NGT DAILY [facility] Scopolamine HBr 1 patch 04/03/17 22:00 04/06/17 21:39 Transderm-Scop - TD 1 patch Q3D@2200 [facility] Administration CXR: no improvement from yesterday, opacification on left side. ASSESSMENT/PLAN: 76 yr old man with extensive cardiac and pulmonary history now with renal insufficiency and sepsis s/p cardiac arrest. - hgb/hct again low without overt signs of bleeding, will transfuse again today Neuro awake, not following commands Pulmonary s/p trach placement 04/02 f/u CXR taper FiO2 to maintain O2 sat 90% Cardiovascular Hypotensive requiring pressor norepi 12 mcg/hr maintain MAP >65 amiodarone 400mg po qdaily afib - paced rhythm (biventricular pacemaker) heparin drip for anticoagulation - held hydrocortisone initiated 03/22 for refractory shock following cardiac arrest, slow taper off HLD: lipitor 80mg HS po f/u Cardiology consultation Infectious Disease wbc count trending down, today 13.1 off abx today f/u ID recommendation Renal oliguiric renal insufficiency with volume overload, avoid adding additional fluids when possible s/p transfusion Hgb/hct, maintain hgb >7.0 continue lasix BID 80mg IVpb with dialysis cather removed, monitor elecrolytes, no plans for HD today f/u nephrology consultation Hematological stable hgb/hct FOBT negative s/p epogen administeration GI tube feeding; Glucerna 1.5 protonix daily for prophylaxis banana flakes daily for loose stools Endocrine will repeat cortisol tomorrow in the morning DM II, HgbA1c 6.4 Glucerna feeds with NISS DVT PPCX: medical AC held due to acute anemia, edema in b/l le unable to use SCD 's Diet: tube feeding Disposition: monitor in ICU, recommended LTAC Problem List - Problems (1) A-fib Code(s): I48.91 - UNSPECIFIED ATRIAL FIBRILLATION Qualifiers: Qualified Code(s): I48.91 - Unspecified atrial fibrillation (2) Acute on chronic diastolic CHF (congestive heart failure) Code(s): I50.33 - ACUTE ON CHRONIC DIASTOLIC (CONGESTIVE) HEART FAILURE (3) Anemia Code(s): D64.9 - ANEMIA, UNSPECIFIED (4) CKD (chronic kidney disease) Code(s): N18.9 - CHRONIC KIDNEY DISEASE, UNSPECIFIED Qualifiers: Qualified Code(s): N18.4 - Chronic kidney disease, stage 4 (severe) (5) Cardiac arrest Code(s): I46.9 - CARDIAC ARREST, CAUSE UNSPECIFIED (6) DVT prophylaxis Code(s): [id number] - (7) HTN (hypertension) Code(s): I10 - ESSENTIAL (PRIMARY) HYPERTENSION (8) Hyperkalemia Code(s): E87.5 - HYPERKALEMIA (9) Hyperlipidemia Code(s): E78.5 - HYPERLIPIDEMIA, UNSPECIFIED (10) 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 hypertension Code(s): I27.2 - OTHER SECONDARY PULMONARY HYPERTENSION (11) Sleep apnea Code(s): G47.30 - SLEEP APNEA, UNSPECIFIED Visit type - Emergency Visit Emergency Visit: Yes ED Registration Date: 03/17/17 Care time: The patient presented to the Emergency Department on the above date and was hospitalized for further evaluation of their emergent condition. - New Patient This patient is new to me today: No - Critical Care Critical Care patient: Yes Total Critical Care Time (in minutes): 50 Critical Care Statement: The care of this patient involved high complexity decision making to prevent further life threatening deterioration of the patient 's condition and/or to evalute & treat vital organ system(s) failure or risk of failure.
[2017-04-07] MEDS: SODIUM CHLORIDE IV SCH (14:32)
[2017-04-07] MEDS: DOPAMINE HCL IV SCH (14:32)
[2017-04-07] MEDS: RANITIDINE HCL 150 MG/10 ML UNIT-DOSE CUP NGT SCH (14:34)
[2017-04-07] MEDS: PROPOFOL 100 ML IVPUSH SCH (14:34)
--- NOTE | 2017-04-07 15:40 | PN ---
Physical Exam: SUBJECTIVE: Patient seen and examined at bedside. Off sedation. More awake and alert. Moving extremities. OBJECTIVE: Vital Signs Period Temp Pulse Resp BP Sys/Krishnan Pulse Ox Last 24 Hr 98 F-99.5 F 71-99 20-32 90-123/47-87 99-100 GENERAL:trached, awake and alert. . HEAD: Normal with no signs of trauma. LUNGS: bilateral rales, decreased breath sound HEART: RRR,no M/G/R ABDOMEN: obese, distended. 1+edema EXTREMITIES:3+ pitting edema bilat. SKIN: chronic LE skin changes. Laboratory Results - last 24 hr 04/02/17 04/06/17 04/06/17 09:15 14:09 18:08 WBC RBC Hgb Hct MCV MCHC RDW Plt Count MPV INR PTT (Actin FS) Sodium Potassium Chloride Carbon Dioxide Anion Gap BUN Creatinine POC Glucometer 157.67099 Random Glucose Calcium Phosphorus Magnesium Blood Type AB POSITIVE AB POSITIVE Antibody Screen Negative Crossmatch See Detail See Detail 04/06/17 04/07/17 04/07/17 21:49 06:25 06:25 WBC RBC Hgb Hct MCV MCHC RDW Plt Count MPV INR PTT (Actin FS) 29.6 Sodium 136 Potassium 4.1 Chloride 96 L Carbon Dioxide 28 Anion Gap 12 BUN 64 H Creatinine 4.2 H POC Glucometer 190.46298 Random Glucose 141 H Calcium 7.7 L Phosphorus 4.3 Magnesium 2.4 Blood Type Antibody Screen Crossmatch 04/07/17 04/07/17 04/07/17 06:25 06:25 06:57 WBC 9.8 RBC 2.83 L Hgb 8.0 L D Hct 23.7 L MCV 83.7 MCHC 33.9 RDW 18.7 H Plt Count 204 MPV 7.8 INR 1.37 H PTT (Actin FS) Sodium Potassium Chloride Carbon Dioxide Anion Gap BUN Creatinine POC Glucometer 174.62978 Random Glucose Calcium Phosphorus Magnesium Blood Type Antibody Screen Crossmatch 04/07/17 11:50 WBC RBC Hgb Hct MCV MCHC RDW Plt Count MPV INR PTT (Actin FS) Sodium Potassium Chloride Carbon Dioxide Anion Gap BUN Creatinine POC Glucometer 157.10757 Random Glucose Calcium Phosphorus Magnesium Blood Type Antibody Screen Crossmatch Active Medications Generic Name Dose Route Start Last Admin Trade Name Freq PRN Reason Stop Dose Admin Amiodarone HCl 400 mg 03/26/17 10:00 04/07/17 09:25 Cordarone - PO 400 mg DAILY SARAH Administration Atorvastatin Calcium 80 mg 03/18/17 09:45 04/06/17 21:39 Lipitor - NGT 80 mg HS SARAH Administration Bacitracin 1 applic 04/06/17 18:45 04/07/17 09:26 Bacitracin - TP 1 applic DAILY SARAH Administration Chlorhexidine Gluconate 1 applic 03/17/17 22:00 04/06/17 21:39 Hibiclens For Decolonization - TP 1 applic HS SARAH Administration Chlorhexidine Gluconate 15 ml 03/18/17 22:15 04/07/17 09:25 Peridex - MM 15 ml BID SARAH Administration Furosemide 80 mg 03/30/17 14:00 04/07/17 14:34 Lasix Injection - IVPUSH 80 mg BID@0600,1400 SARAH Administration Norepinephrine Bitartrate 8, 258 mls @ 15.48 mls/hr 03/30/17 08:15 04/07/17 08: 21 000 mcg/ Dextrose IV 23.22 mls/hr TITR SARAH Administration Protocol 8 MCG/MIN Dopamine HCl 800,000 mcg/ 250 mls @ 22.98 mls/hr 03/31/17 11:00 04/07/17 14:32 Sodium Chloride IV Not Given TITR SARAH Protocol 8 MCG/KG/MIN Propofol 100 mls @ 4.707 mls/hr 04/05/17 13:45 04/07/17 14:34 Diprivan - IVPUSH Not Given TITR [facility] Protocol 5 MCG/KG/MIN Insulin Aspart 1 vial 03/24/17 07:00 04/07/17 12:00 Novolog Vial Sliding Scale - SQ Not Given ACHS SARAH Protocol Ranitidine HCl 150 mg 04/07/17 11:45 04/07/17 14:34 Zantac Oral Solution - NGT 150 mg DAILY SARAH Administration Scopolamine HBr 1 patch 04/03/17 22:00 04/06/17 21:39 Transderm-Scop - TD 1 patch Q3D@2200 SARAH Administration ASSESSMENT/PLAN: 76 y/o M with signifcant PMHx of CHF, HTN, Afib, and pulmonary HTN admitted from residential s/p cardiac arrest 2/2 vfib admitted to ICU Problem List - Problems (1) Cardiac arrest Assessment/Plan: * Family spoke with rep from [facility]) and are agreeable to this option. * s/p trach * currently on Levo 10mcg/hr and Off Dopa * Maintaining MAP > 65 * Amiodarone 400mg PO daily * Continue ICU monitoring. (2) Positive culture findings in sputum Assessment/Plan: * ABx held as per ID * continue vent support. * will repeat AM labs. (3) Acute on chronic diastolic CHF (congestive heart failure) Assessment/Plan: * Lasix 80mg BID IVPUSH * HD with UF today * monitor I/O's * daily weights. (4) CKD (chronic kidney disease) Assessment/Plan: * Stage 4 GFR 23 * Dialyzed today 3.5kg * continue Lasix 80mg IV BID (5) A-fib Assessment/Plan: * Currently paced * Continue Amiodarone * AC with heparin ggt--held for possible acute bleed. * Digoxin held due to renal function. (6) DVT prophylaxis Assessment/Plan: * Heparin GGT--held * SCD's bilat. Visit type - Emergency Visit Emergency Visit: Yes ED Registration Date: 03/17/17 Care time: The patient presented to the Emergency Department on the above date and was hospitalized for further evaluation of their emergent condition. - New Patient This patient is new to me today: No - Critical Care Critical Care patient: No - Discharge Referral Referred to [facility] Med P.C.: No
--- NOTE | 2017-04-07 17:22 | PN ---
Teaching Attending Note Name of Resident: Cleve Bourgeois ATTENDING PHYSICIAN STATEMENT I saw and evaluated the patient. I reviewed the resident's note and discussed the case with the resident. I agree with the resident's findings and plan as documented. SUBJECTIVE: no events over night OBJECTIVE: trached. awake and alert , trys to talk , moves his upper extremities. wiggle his toes CV: RRR, no MRG Lungs; rales anteriorly. decreased breath sounds at L base Abd: obese . Abd wall edema 1+. NL BS Ext :2+ pitting edema on LE , Chronic hyperpigmentation and skin thickening. ASSESSMENT AND PLAN: 76 y/o man with h/o Severe cardiomypathy( non ischemic ) ,with severely reduced EF, and PULm HTN, Diastolic dysfunction , A fib on AC, who presented with cardiac arrest (V fib ) from his group home 1- S/P cardiac arrest: due to severe R sided cardiomyopathy. - cont pressor support( off dopamine, and levophed 18 mcg /min ) . taper as tolerated to keep MAP > 65 - cont Amio 400 daily - off hydrocortisone 2- Severe non-ischemic cardiomypoathy, with acute on chronic systolic and diastolic heart failure - HD for fluid removal - cont IV lasix - monitor I&Os 3- Acute hypoxic resp failure :due to CHF , Left PNA ( sputum cx with MRSA ) - monitor off Abx - cont Vent support . 4- Acute on chronic anemia: trend and transfuse as needed - had bleeding from L IJ site yesterday. received PLT, RBC and DDAVP - fecal OB + . monitor - cont to hold heparin gtt 5- A fib: rate is controlled , paced rhythm - monitor rate - cont amio - off anticoagulation due to worsening anemia 5-SUJATA on CKD : cont HD. Accepted to [facility] . will arrange for transfer when bed is ready
--- NOTE | 2017-04-07 17:22 | PN ---
Progress Note, Physician Chief Complaint: Pt alert; irritated by NG tube; pt's is at bedside. History of Present Illness: The patient is a 76 year old black male, with a significant past medical history of diastolic CHF (severely reduced RVEF of uncertain etiology; severely dilated RV on 02/2017 ECHO, per pt's pocket cutter at [facility]), (non- obstructive CAD by 2008 coronary angiogram), [employer] "biventricular pacemaker , COPD, HTN, HLD, Atrial Fibrillation, renal insufficiency, Morbid obesity, Prostate CA, Sleep apnea (on CPAP), generalized weakness (wheelchair-bound), Glaucoma BIBA from [facility], who was brought in to ER s/p Cardiac arrest. As per EMS, the patient was initially seated in PT doing leg exercises when he became unresponsive. Patient was brought back into his room in the [place] and chest compressions were initiated by nursing staff. Down time was between 4- 5 minutes. patient was shocked once and ROSC was noted. As per EMS, patient was given 150 mg of Amiodarone in the field and was brought into the ED for further evaluation. Upon arrival to the ED, patients (health care proxy) gave consent to intubate over the telephone. 2:48 PM- 20 mg of Etomidate given through IV 2:49 PM- 150 mg of Succinylcholine given through IV 2:50 PM- Patient intubated with 7.5 ET tube, positioned 24 cm at the lip Pt's says pt is followed closely by [facility] and cardiac groups. I spoke by telephone with pt's pocket cutter, who provided much of the above history. - Current Medication List Current Medications: Active Medications Amiodarone HCl (Cordarone -) 400 mg PO DAILY [facility] Last Admin: 04/07/17 09:25 Dose: 400 mg Atorvastatin Calcium (Lipitor -) 80 mg NGT HS [facility] Last Admin: 04/06/17 21:39 Dose: 80 mg Bacitracin (Bacitracin -) 1 applic TP DAILY [facility] Last Admin: 04/07/17 09:26 Dose: 1 applic Chlorhexidine Gluconate (Hibiclens For Decolonization -) 1 applic TP HS [facility] Last Admin: 04/06/17 21:39 Dose: 1 applic Chlorhexidine Gluconate (Peridex -) 15 ml MM BID [facility] Last Admin: 04/07/17 09:25 Dose: 15 ml Furosemide (Lasix Injection -) 80 mg IVPUSH BID@0600,1400 [facility] Last Admin: 04/07/17 14:34 Dose: 80 mg Norepinephrine Bitartrate 8, (000 mcg/ Dextrose) 258 mls @ 15.48 mls/hr IV TITR SARAH; 8 MCG/MIN PRN Reason: Protocol Last Admin: 04/07/17 08:21 Dose: 23.22 mls/hr Dopamine HCl 800,000 mcg/ (Sodium Chloride) 250 mls @ 22.98 mls/hr IV TITR SARAH ; 8 MCG/KG/MIN PRN Reason: Protocol Last Admin: 04/07/17 14:32 Dose: Not Given Propofol (Diprivan -) 100 mls @ 4.707 mls/hr IVPUSH TITR SARAH; 5 MCG/KG/MIN PRN Reason: Protocol Last Admin: 04/07/17 14:34 Dose: Not Given Insulin Aspart (Novolog Vial Sliding Scale -) 1 vial SQ ACHS SARAH PRN Reason: Protocol Last Admin: 04/07/17 12:00 Dose: Not Given Ranitidine HCl (Zantac Oral Solution -) 150 mg NGT DAILY [facility] Last Admin: 04/07/17 14:34 Dose: 150 mg Scopolamine HBr (Transderm-Scop -) 1 patch TD Q3D@2200 [facility] Last Admin: 04/06/17 21:39 Dose: 1 patch - Objective Vital Signs: Vital Signs Temperature 98.4 F 04/07/17 10:00 Pulse Rate 76 04/07/17 14:00 Respiratory Rate 31 H 04/07/17 14:15 Blood Pressure 99/64 04/07/17 14:00 O2 Sat by Pulse Oximetry (%) 100 04/07/17 09:54 Constitutional: Yes: Obese Eyes: Yes: WNL HENT: Yes: Nasal Congestion Neck: Yes: Decreased ROM, Other (tracheostomy; mechanically ventilated) Cardiovascular: Yes: Regular Rate and Rhythm, Murmur (2/6 systolic murmur, RSB-- >apex), S1, S2 (split) Respiratory: Yes: Diminished (left side) Gastrointestinal: Yes: Abdomen, Obese ...Rectal Exam: Yes: Deferred Genitourinary: Yes: Polyuria Musculoskeletal: Yes: Muscle Weakness Extremities: Yes: Cool Edema: Yes Edema: LUE: 1+, RUE: 1+, LLE: 2+, RLE: 2+ Peripheral Pulses WNL: No Peripheral Pulses: Left Doralis Pedis: 1+, Right Dorsalis Pedis: 1+ Integumentary: Yes: Venous Stasis Changes Neurological: Yes: Weakness Psychiatric: Yes: Alert Labs: CBC, BMP 04/07/17 06:25 04/07/17 06:25 INR, PTT INR 1.37 (0.82-1.09) H 04/07/17 06:25 Abnormal Lab Results 04/08/17 04/08/17 05:25 05:25 RBC 2.74 L Hgb 7.6 L Hct 22.8 L RDW 19.6 H Sodium 135 L Chloride 96 L BUN 68 H Creatinine 4.4 H Random Glucose 161 H Calcium 7.6 L - ....Imaging Chest X-ray: Image Reviewed (left hemithorax opacified) Other: Image Reviewed (telemetry: ventricular pacing) Problem List - Problems (1) Cardiac arrest Assessment/Plan: Underwent tracheostomy today (virtual whiteout of left hemithorax remains). On PO amiodarone; reduce to 200 mg daily per protocol. Remains on norepinephrine. As discussed with Dr. Gomez, pt is refractory to attempts to wean of norepinephrine. He is alert; may have to consider weaning and following clinicallly, even if MAP fall slightly felow NL. Code(s): I46.9 - CARDIAC ARREST, CAUSE UNSPECIFIED (2) Acute on chronic diastolic CHF (congestive heart failure) Assessment/Plan: see under "cardiac arrest'. Code(s): I50.33 - ACUTE ON CHRONIC DIASTOLIC (CONGESTIVE) HEART FAILURE (3) Hyperlipidemia Assessment/Plan: high-dose statin. Code(s): E78.5 - HYPERLIPIDEMIA, UNSPECIFIED (4) Sleep apnea Code(s): G47.30 - SLEEP APNEA, UNSPECIFIED (5) HTN (hypertension) Code(s): I10 - ESSENTIAL (PRIMARY) HYPERTENSION (6) 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 hypertension Assessment/Plan: Hx COPD; severe RV failure. White-out of left lung. F/u Is and Os. F/u c/s. S/p tracheostomy; remains ventrilator-dependent. F/u with shift mechanic. Code(s): I27.2 - OTHER SECONDARY PULMONARY HYPERTENSION (7) Hyperkalemia Code(s): E87.5 - HYPERKALEMIA (8) Anemia Code(s): D64.9 - ANEMIA, UNSPECIFIED (9) Acute on chronic renal failure Code(s): N17.9 - ACUTE KIDNEY FAILURE, UNSPECIFIED N18.9 - CHRONIC KIDNEY DISEASE, UNSPECIFIED Assessment/Plan CC time spent reviewing record, examining pt, writing note: 40 minutes
--- NOTE | 2017-04-07 17:28 | PN ---
Progress Note (short form) - Note Progress Note: Renal Follow up for SUJATA/Fluid overload Pt seen and examined in the ICU awake on the vent FiO2 is 45% s/p dialysis yesterday on Levophed Vital Signs Temperature 98.4 F 04/07/17 10:00 Pulse Rate 76 04/07/17 14:00 Respiratory Rate 31 H 04/07/17 14:15 Blood Pressure 99/64 04/07/17 14:00 O2 Sat by Pulse Oximetry (%) 100 04/07/17 09:54 Intake & Output 04/04/17 04/05/17 04/06/17 04/07/17 23:59 23:59 23:59 23:59 Intake Total 1434.4 1844.2 1655.6 444 Output Total 400 400 250 100 Balance 1034.4 1444.2 1405.6 344 Weight 339 lb 11.717 oz 345 lb 14.4 oz 345 lb 8 oz 336 lb 6.4 oz Gen: on Vent via trach, awake and alert CVS: RRR, No M/R Lungs: DEC BS throughout the lung ortiz, no rales Abd: soft, Obese, ND Ext: 2+ edema in LE, no cyanosis, warm ext : Ridley in place CBC, BMP 04/07/17 06:25 04/07/17 06:25 Current Medications Amiodarone HCl (Cordarone -) 400 mg PO DAILY [facility] Last Admin: 04/07/17 09:25 Dose: 400 mg Atorvastatin Calcium (Lipitor -) 80 mg NGT HS SARAH Last Admin: 04/06/17 21:39 Dose: 80 mg Bacitracin (Bacitracin -) 1 applic TP DAILY SARAH Last Admin: 04/07/17 09:26 Dose: 1 applic Chlorhexidine Gluconate (Hibiclens For Decolonization -) 1 applic TP HS SARAH Last Admin: 04/06/17 21:39 Dose: 1 applic Chlorhexidine Gluconate (Peridex -) 15 ml MM BID SARAH Last Admin: 04/07/17 09:25 Dose: 15 ml Furosemide (Lasix Injection -) 80 mg IVPUSH BID@0600,1400 SARAH Last Admin: 04/07/17 14:34 Dose: 80 mg Norepinephrine Bitartrate 8, (000 mcg/ Dextrose) 258 mls @ 15.48 mls/hr IV TITR SARAH; 8 MCG/MIN PRN Reason: Protocol Last Admin: 04/07/17 08:21 Dose: 23.22 mls/hr Dopamine HCl 800,000 mcg/ (Sodium Chloride) 250 mls @ 22.98 mls/hr IV TITR SARAH ; 8 MCG/KG/MIN PRN Reason: Protocol Last Admin: 04/07/17 14:32 Dose: Not Given Propofol (Diprivan -) 100 mls @ 4.707 mls/hr IVPUSH TITR SARAH; 5 MCG/KG/MIN PRN Reason: Protocol Last Admin: 04/07/17 14:34 Dose: Not Given Insulin Aspart (Novolog Vial Sliding Scale -) 1 vial SQ ACHS SARAH PRN Reason: Protocol Last Admin: 04/07/17 12:00 Dose: Not Given Ranitidine HCl (Zantac Oral Solution -) 150 mg NGT DAILY [facility] Last Admin: 04/07/17 14:34 Dose: 150 mg Scopolamine HBr (Transderm-Scop -) 1 patch TD Q3D@2200 [facility] Last Admin: 04/06/17 21:39 Dose: 1 patch A/P 76 year old Gentleman with PMhx of CKD, CHF, Hypertension, Afib, Obesity, Prostate Ca who presented s/p cardiac arrest with SUJATA and Volume overload #Now Oliguric acute on chronic renal insufficiency warranting [employer]UC[employer] No acute indication for dialysis today for HD tomorrow with UF as tolerated will plan on continuing 3x weekly HD with UF (when doing frequent UF last week pts presser requirements with fluctuate resulting in skipped sessions) Thank you Garry Drew DO
[2017-04-07] MEDS: ATORVASTATIN CA 80 MG TABLET (FP) NGT SCH (21:52)
[2017-04-07] MEDS: CHLORHEXIDINE GLUCONATE 4% CLEANSER FOR DECOLONIZATION TP SCH (21:53)
[2017-04-08] MEDS ORDERED: NOREPINEPHRINE BITARTRATE 4 MG/4 ML ML IV ONE ×2 (05:23→14:10)
[2017-04-08 05:45] LABS: MCH 27.9 pg (25.7-33.7); MCHC 33.5 g/dl (32.0-35.9); MEAN CELL VOLUME 83.4 fl (80-96); MEAN PLT VOLUME 8.2 fl (7.5-11.1); PLATELET COUNT 234 K/MM3 (134-434); RDW 19.6 % (11.9-15.9); WHITE BLOOD COUNT 9.7 K/mm3 (4.0-10.0)
[2017-04-08] MEDS ORDERED: PT OWN MED DRAWER 7, Y5N ONE ×2 (05:48→21:59)
[2017-04-08] MEDS: FUROSEMIDE 40 MG/4 ML INJECTABLE VIAL IVPUSH SCH ×2 (05:49→19:10)
[2017-04-08] MEDS: BANATROL PLUS POWDER PACKET PO SCH ×3 (05:51→22:11)
[2017-04-08 06:07] LABS: CALCIUM 7.6 mg/dL (8.5-10.1); COCKROFT - GAULT 29.86; CREATININE 4.4 mg/dL (0.7-1.3)
[2017-04-08] MEDS: INSULIN SLIDING SCALE (NOVOLOG) 1 VIAL SQ SCH ×4 (06:36→22:09)
--- NOTE | 2017-04-08 09:02 | PN ---
Physical Exam: SUBJECTIVE: Patient seen and examined. He is awake, trying to communicate. No overnight events. OBJECTIVE: Vital Signs Period Temp Pulse Resp BP Sys/Krishnan Pulse Ox Last 24 Hr 97.8 F-98.4 F 70-86 14-32 84-108/55-69 99-100 GENERAL: The patient is awake, on mechanical ventilation. HEAD: Normal with no signs of trauma. EYES: sclera anicteric, conjunctiva clear. ENT: moist mucous membranes, trachea. NECK: Trachea midline, full range of motion, supple, trialysis cath on right side. LUNGS: Breath sounds equal, coarse breath sounds bilaterally, crackles B/L, no accessory muscle use. HEART: Regular rate and rhythm, S1, S2 without murmur, rub or gallop. ABDOMEN: Obese, soft, nontender, distended, normoactive bowel sounds, no guarding, no rebound, no masses, edema present. EXTREMITIES: 2+ pulses, warm, 2+ edema in LE and abdomen. NEUROLOGICAL: No facial asymmetry, following commands, motor 1/5 in upper extremities, 1/5 in lower extremities, gait not observed. PSYCH: Awake. Ridley cath, draining yellow urine. Rectal tube. Dialysis cath inserted 04/06/17. Laboratory Results - last 24 hr 04/07/17 04/07/17 04/07/17 06:25 06:25 11:50 WBC RBC Hgb Hct MCV MCHC RDW Plt Count MPV PTT (Actin FS) 29.6 Sodium 136 Potassium 4.1 Chloride 96 L Carbon Dioxide 28 Anion Gap 12 BUN 64 H Creatinine 4.2 H POC Glucometer 157.00355 Random Glucose 141 H Calcium 7.7 L Phosphorus 4.3 Magnesium 2.4 04/07/17 04/07/17 04/08/17 16:51 22:11 05:09 WBC RBC Hgb Hct MCV MCHC RDW Plt Count MPV PTT (Actin FS) Sodium Potassium Chloride Carbon Dioxide Anion Gap BUN Creatinine POC Glucometer 199.51540 188.02029 200.44609 Random Glucose Calcium Phosphorus Magnesium 04/08/17 04/08/17 04/08/17 05:25 05:25 05:25 WBC 9.7 RBC 2.74 L Hgb 7.6 L Hct 22.8 L MCV 83.4 MCHC 33.5 RDW 19.6 H Plt Count 234 MPV 8.2 PTT (Actin FS) Sodium 135 L Potassium 4.3 Chloride 96 L Carbon Dioxide 27 Anion Gap 12 BUN 68 H Creatinine 4.4 H POC Glucometer Random Glucose 161 H Calcium 7.6 L Phosphorus Cancelled Magnesium Active Medications Generic Name Dose Route Start Last Admin Trade Name Lor PRN Reason Stop Dose Admin Amiodarone HCl 400 mg 03/26/17 10:00 04/07/17 09:25 Cordarone - PO 400 mg DAILY SARAH Administration Atorvastatin Calcium 80 mg 03/18/17 09:45 04/07/17 21:52 Lipitor - NGT 80 mg HS SARAH Administration Bacitracin 1 applic 04/06/17 18:45 04/07/17 09:26 Bacitracin - TP 1 applic DAILY SARAH Administration Chlorhexidine Gluconate 1 applic 03/17/17 22:00 04/07/17 21:53 Hibiclens For Decolonization - TP 1 applic HS SARAH Administration Chlorhexidine Gluconate 15 ml 03/18/17 22:15 04/07/17 21:52 Peridex - MM 15 ml BID SARAH Administration Epoetin Severo 20,000 unit 04/08/17 06:00 Procrit - IVPUSH 04/08/17 06:01 ONCE ONE Furosemide 80 mg 03/30/17 14:00 04/08/17 05:49 Lasix Injection - IVPUSH 80 mg BID@0600,1400 SARAH Administration Norepinephrine Bitartrate 8, 258 mls @ 15.48 mls/hr 03/30/17 08:15 04/07/17 22: 50 000 mcg/ Dextrose IV 29.02 mls/hr TITR SARAH Administration Protocol 8 MCG/MIN Dopamine HCl 800,000 mcg/ 250 mls @ 22.98 mls/hr 03/31/17 11:00 04/07/17 14:32 Sodium Chloride IV Not Given TITR SARAH Protocol 8 MCG/KG/MIN Propofol 100 mls @ 4.707 mls/hr 04/05/17 13:45 04/07/17 14:34 Diprivan - IVPUSH Not Given TITR SARAH Protocol 5 MCG/KG/MIN Insulin Aspart 1 vial 03/24/17 07:00 04/08/17 06:36 Novolog Vial Sliding Scale - SQ 2 units ACHS SARAH Administration Protocol Ranitidine HCl 150 mg 04/07/17 11:45 04/07/17 14:34 Zantac Oral Solution - NGT 150 mg DAILY SARAH Administration Scopolamine HBr 1 patch 04/03/17 22:00 04/06/17 21:39 Transderm-Scop - TD 1 patch Q3D@2200 SARAH Administration CXR: no improvement from yesterday ASSESSMENT/PLAN: 76 yr old man with extensive cardiac and pulmonary history now with renal insufficiency s/p cardiac arrest. Neuro awake, not following commands Pulmonary s/p trach placement 04/02 f/u CXR Vented on volume assist control with 45% FiO2 Cardiovascular Hypotensive requiring pressor norepi 8 mcg/hr maintain MAP >65 amiodarone 400mg po daily afib - paced rhythm (biventricular pacemaker) heparin drip for anticoagulation - held hydrocortisone initiated 03/22 for refractory shock following cardiac arrest, slow taper off HLD: lipitor 80mg HS po f/u Cardiology consultation Infectious Disease wbc count trending down off abx today f/u ID recommendation Renal plans for HD today and perm cath tomorrow to follow with scheduled dialysis oliguiric renal insufficiency with volume overload, avoid adding additional fluids when possible s/p transfusion Hgb/hct, today Hg 7.6, maintain hgb >7.0 continue lasix BID 80mg IVpb monitor elecrolytes, f/u nephrology consultation Hematological stable hgb/hct FOBT negative s/p epogen administeration GI consult to GI placed for peg tube insertion tube feeding; Glucerna 1.5 protonix daily for prophylaxis banana flakes daily for loose stools Endocrine cortisol level pending DM II, HgbA1c 6.4 Glucerna feeds DVT PPCX: medical AC held due to acute anemia, edema in b/l le unable to use SCD 's Diet: tube feeding Disposition: monitor in ICU, family agreed to LTAC, contacted them to confirm. Problem List - Problems (1) A-fib Code(s): I48.91 - UNSPECIFIED ATRIAL FIBRILLATION Qualifiers: Atrial fibrillation type: unspecified Qualified Code(s): I48.91 - Unspecified atrial fibrillation (2) Acute on chronic diastolic CHF (congestive heart failure) Code(s): I50.33 - ACUTE ON CHRONIC DIASTOLIC (CONGESTIVE) HEART FAILURE (3) Anemia Code(s): D64.9 - ANEMIA, UNSPECIFIED (4) CKD (chronic kidney disease) Code(s): N18.9 - CHRONIC KIDNEY DISEASE, UNSPECIFIED Qualifiers: Chronic kidney disease stage: stage 4 (severe) Qualified Code(s): N18.4 - Chronic kidney disease, stage 4 (severe) (5) Cardiac arrest Code(s): I46.9 - CARDIAC ARREST, CAUSE UNSPECIFIED (6) DVT prophylaxis Code(s): [id number] - (7) HTN (hypertension) Code(s): I10 - ESSENTIAL (PRIMARY) HYPERTENSION (8) Hyperkalemia Code(s): E87.5 - HYPERKALEMIA (9) Hyperlipidemia Code(s): E78.5 - HYPERLIPIDEMIA, UNSPECIFIED (10) 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 hypertension Code(s): I27.2 - OTHER SECONDARY PULMONARY HYPERTENSION (11) Sleep apnea Code(s): G47.30 - SLEEP APNEA, UNSPECIFIED Visit type - Emergency Visit Emergency Visit: Yes ED Registration Date: 03/17/17 Care time: The patient presented to the Emergency Department on the above date and was hospitalized for further evaluation of their emergent condition. - New Patient This patient is new to me today: No - Critical Care Critical Care patient: Yes Total Critical Care Time (in minutes): 50 Critical Care Statement: The care of this patient involved high complexity decision making to prevent further life threatening deterioration of the patient 's condition and/or to evalute & treat vital organ system(s) failure or risk of failure.
[2017-04-08 09:06] LABS: PHOSPHOROUS 4.3 mg/dL (2.5-4.9)
--- NOTE | 2017-04-08 10:46 | PN ---
Teaching Attending Note Name of Resident: Fani Allison ATTENDING PHYSICIAN STATEMENT I saw and evaluated the patient. I reviewed the resident's note and discussed the case with the resident. I agree with the resident's findings and plan as documented. SUBJECTIVE: Pt seen and examined in the ICU. Vented on volume assist control with 45% FiO2. Awake, attempting to speak, getting frustrated. Remains on levophed gtt. OBJECTIVE: Last Vital Signs Temp Pulse Resp BP Pulse Ox 99.2 F 75 20 102/57 99 04/08/17 10:00 04/08/17 10:00 04/08/17 10:00 04/08/17 10:00 04/07/17 22:44 Intake & Output 04/05/17 04/06/17 04/07/17 04/08/17 23:59 23:59 23:59 23:59 Intake Total 1844.2 1655.6 845 348 Output Total 400 250 100 150 Balance 1444.2 1405.6 745 198 Weight 345 lb 14.4 oz 345 lb 8 oz 336 lb 6.4 oz 341 lb 11.2 oz Gen: vented, awake Heart: RRR Lung: distant breath sounds Abd: soft, obese, nontender Ext: + edema CBC, BMP 04/08/17 05:25 04/08/17 05:25 Active Medications Amiodarone HCl (Cordarone -) 400 mg PO DAILY [facility] Last Admin: 04/07/17 09:25 Dose: 400 mg Atorvastatin Calcium (Lipitor -) 80 mg NGT HS [facility] Last Admin: 04/07/17 21:52 Dose: 80 mg Bacitracin (Bacitracin -) 1 applic TP DAILY [facility] Last Admin: 04/07/17 09:26 Dose: 1 applic Chlorhexidine Gluconate (Hibiclens For Decolonization -) 1 applic TP HS [facility] Last Admin: 04/07/17 21:53 Dose: 1 applic Chlorhexidine Gluconate (Peridex -) 15 ml MM BID [facility] Last Admin: 04/07/17 21:52 Dose: 15 ml Epoetin Severo (Procrit -) 20,000 unit IVPUSH ONCE ONE Stop: 04/08/17 06:01 Furosemide (Lasix Injection -) 80 mg IVPUSH BID@0600,1400 [facility] Last Admin: 04/08/17 05:49 Dose: 80 mg Norepinephrine Bitartrate 8, (000 mcg/ Dextrose) 258 mls @ 15.48 mls/hr IV TITR SARAH; 8 MCG/MIN PRN Reason: Protocol Last Admin: 04/07/17 22:50 Dose: 29.02 mls/hr Dopamine HCl 800,000 mcg/ (Sodium Chloride) 250 mls @ 22.98 mls/hr IV TITR SARAH ; 8 MCG/KG/MIN PRN Reason: Protocol Last Admin: 04/07/17 14:32 Dose: Not Given Propofol (Diprivan -) 100 mls @ 4.707 mls/hr IVPUSH TITR SARAH; 5 MCG/KG/MIN PRN Reason: Protocol Last Admin: 04/07/17 14:34 Dose: Not Given Insulin Aspart (Novolog Vial Sliding Scale -) 1 vial SQ ACHS SARAH PRN Reason: Protocol Last Admin: 04/08/17 06:36 Dose: 2 units Ranitidine HCl (Zantac Oral Solution -) 150 mg NGT DAILY [facility] Last Admin: 04/07/17 14:34 Dose: 150 mg Scopolamine HBr (Transderm-Scop -) 1 patch TD Q3D@2200 [facility] Last Admin: 04/06/17 21:39 Dose: 1 patch ASSESSMENT AND PLAN: s/p Vfib Cardiac Arrest Acute on Chronic Hypoxic Respiratory Failure s/p Tracheostomy Acute on Chronic Diastolic Heart Failure Severe Pulmonary HTN s/p BiV PPM CAD +Troponins Atrial Fibrillation HTN CKD Hyperlipidemia DM COPD Morbid Obesity Obstructive Sleep Apnea Anemia - s/p antibiotic course - keep K>4, Mg>2 - continue amiodarone, decrease dose per cardiology - transfuse PRBC with HD - monitor H/H - resume anticoagulation - HD per renal - lasix boluses - discuss with renal ?permacath - titrate levophed gtt to maintain MAP >65 - monitor urine output, creatinine - HD per renal - taper FiO2 to keep SpO2 >90% - spontaneous breathing trials as tolerated - enteral feeds - will need PEG placement - DVT/GI prophylaxis - continue ICU monitoring - agree with LTAC placement critical care time spent in reviewing chart, evaluating patient and formulating plan 40 min
[2017-04-08] MEDS: CHLORHEXIDINE GLUCONATE 0.12% 15ML CUP MM SCH ×2 (11:10→22:11)
[2017-04-08] MEDS: BACITRACIN 15 GM TUBE TOPICAL OINTMENT TP SCH (11:10)
[2017-04-08] MEDS: RANITIDINE HCL 150 MG/10 ML UNIT-DOSE CUP NGT SCH (11:10)
[2017-04-08] MEDS: AMIODARONE HCL 200 MG TABLET (FP) PO SCH (11:11)
[2017-04-08] MEDS: SODIUM CHLORIDE IV SCH (11:45)
[2017-04-08] MEDS: DOPAMINE HCL IV SCH (11:45)
--- NOTE | 2017-04-08 12:21 | PN ---
Progress Note, Physician History of Present Illness: The patient is a 76 year old black male, with a significant past medical history of diastolic CHF (severely reduced RVEF of uncertain etiology; severely dilated RV on 02/2017 ECHO, per pt's stable cleaner at [facility]), (non- obstructive CAD by 2008 coronary angiogram), [employer] "biventricular pacemaker , COPD, HTN, HLD, Atrial Fibrillation, renal insufficiency, Morbid obesity, Prostate CA, Sleep apnea on O2, generalzied weakness (wheelchair-bound), Glaucoma BIBA from [facility] s/p Cardiac arrest. As per EMS, the patient was initially seated in PT doing leg exercises when he became unresponsive. Patient was brought back into his room in the HI and chest compressions were initiated by nursing staff. Down time was between 4-5 minutes. patient was shocked once and ROSC was noted. As per EMS, patient was given 150 mg of Amiodarone in the field and was brought into the ED for further evaluation. Upon arrival to the ED, patients (health care proxy) gave consent to intubate over the telephone. 2:48 PM- 20 mg of Etomidate given through IV 2:49 PM- 150 mg of Succinylcholine given through IV 2:50 PM- Patient intubated with 7.5 ET tube, positioned 24 cm at the lip Pt's says pt is followed closely by [facility] and cardiac groups. I spoke by telephone with pt's stable cleaner, who provided much of the above history. - Current Medication List Current Medications: Active Medications Amiodarone HCl (Cordarone -) 200 mg PO DAILY [facility] Atorvastatin Calcium (Lipitor -) 80 mg NGT HS [facility] Last Admin: 04/07/17 21:52 Dose: 80 mg Bacitracin (Bacitracin -) 1 applic TP DAILY [facility] Last Admin: 04/08/17 11:10 Dose: 1 applic Chlorhexidine Gluconate (Hibiclens For Decolonization -) 1 applic TP HS [facility] Last Admin: 04/07/17 21:53 Dose: 1 applic Chlorhexidine Gluconate (Peridex -) 15 ml MM BID [facility] Last Admin: 04/08/17 11:10 Dose: 15 ml Epoetin Severo (Procrit -) 20,000 unit IVPUSH ONCE ONE Stop: 04/08/17 06:01 Furosemide (Lasix Injection -) 80 mg IVPUSH BID@0600,1400 [facility] Last Admin: 04/08/17 05:49 Dose: 80 mg Norepinephrine Bitartrate 8, (000 mcg/ Dextrose) 258 mls @ 15.48 mls/hr IV TITR SARAH; 8 MCG/MIN PRN Reason: Protocol Last Admin: 04/07/17 22:50 Dose: 29.02 mls/hr Dopamine HCl 800,000 mcg/ (Sodium Chloride) 250 mls @ 22.98 mls/hr IV TITR SARAH ; 8 MCG/KG/MIN PRN Reason: Protocol Last Admin: 04/08/17 11:45 Dose: Not Given Propofol (Diprivan -) 100 mls @ 4.707 mls/hr IVPUSH TITR SARAH; 5 MCG/KG/MIN PRN Reason: Protocol Last Admin: 04/07/17 14:34 Dose: Not Given Insulin Aspart (Novolog Vial Sliding Scale -) 1 vial SQ ACHS SARAH PRN Reason: Protocol Last Admin: 04/08/17 11:46 Dose: 2 units Ranitidine HCl (Zantac Oral Solution -) 150 mg NGT DAILY [facility] Last Admin: 04/08/17 11:10 Dose: 150 mg Scopolamine HBr (Transderm-Scop -) 1 patch TD Q3D@2200 [facility] Last Admin: 04/06/17 21:39 Dose: 1 patch - Objective Vital Signs: Vital Signs Temperature 99.2 F 04/08/17 10:00 Pulse Rate 82 04/08/17 11:00 Respiratory Rate 29 H 04/08/17 11:00 Blood Pressure 97/80 04/08/17 11:00 O2 Sat by Pulse Oximetry (%) 99 04/07/17 22:44 Eyes: Yes: WNL, Conjunctiva Clear, EOM Intact HENT: Yes: WNL, Atraumatic, Normocephalic Neck: Yes: WNL, Supple, Trachea Midline Cardiovascular: Yes: WNL, Regular Rate and Rhythm Respiratory: Yes: Mechanically Ventilated Gastrointestinal: Yes: WNL, Normal Bowel Sounds Genitourinary: Yes: WNL Musculoskeletal: Yes: WNL Extremities: Yes: WNL Edema: Yes Integumentary: Yes: WNL Neurological: Yes: WNL, Alert, Oriented ...Motor Strength: WNL Psychiatric: Yes: WNL Labs: CBC, BMP 04/08/17 05:25 04/08/17 05:25 INR, PTT INR 1.37 (0.82-1.09) H 04/07/17 06:25 Assessment/Plan - Problems (1) Cardiac arrest Assessment/Plan: Underwent tracheostomy today (virtual whiteout of left hemithorax remains). On PO amiodarone; reduce to 200 mg daily per protocol. Remains on norepinephrine. As discussed with Dr. Gomez, pt is refractory to attempts to wean of norepinephrine. He is alert; may have to consider weaning and following clinicallly, even if MAP fall slightly felow NL. Code(s): I46.9 - CARDIAC ARREST, CAUSE UNSPECIFIED (2) Acute on chronic diastolic CHF (congestive heart failure) Assessment/Plan: see under "cardiac arrest'. Code(s): I50.33 - ACUTE ON CHRONIC DIASTOLIC (CONGESTIVE) HEART FAILURE (3) Hyperlipidemia Assessment/Plan: high-dose statin. Code(s): E78.5 - HYPERLIPIDEMIA, UNSPECIFIED (4) Sleep apnea Code(s): G47.30 - SLEEP APNEA, UNSPECIFIED (5) HTN (hypertension) Code(s): I10 - ESSENTIAL (PRIMARY) HYPERTENSION (6) 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 hypertension Assessment/Plan: Hx COPD; severe RV failure. White-out of left lung. F/u Is and Os. F/u c/s. S/p tracheostomy; remains ventrilator-dependent. F/u with perinatal tech. Code(s): I27.2 - OTHER SECONDARY PULMONARY HYPERTENSION (7) Hyperkalemia Code(s): E87.5 - HYPERKALEMIA (8) Anemia Code(s): D64.9 - ANEMIA, UNSPECIFIED (9) Acute on chronic renal failure Code(s): N17.9 - ACUTE KIDNEY FAILURE, UNSPECIFIED N18.9 - CHRONIC KIDNEY DISEASE, UNSPECIFIED Assessment/Plan CC time spent reviewing record, examining pt, writing note: 40 minutes
--- NOTE | 2017-04-08 13:14 | PN ---
Progress Note (short form) - Note Progress Note: Renal Follow up for SUJATA/Fluid overload Pt seen and examined in the ICU awake on the Vent, FiO2 is 45% On Levophed No fevers Vital Signs Temperature 99.2 F 04/08/17 10:00 Pulse Rate 83 04/08/17 12:00 Respiratory Rate 14 04/08/17 12:00 Blood Pressure 96/61 04/08/17 12:00 O2 Sat by Pulse Oximetry (%) 99 04/07/17 22:44 Intake & Output 04/05/17 04/06/17 04/07/17 04/08/17 23:59 23:59 23:59 23:59 Intake Total 1844.2 1655.6 845 348 Output Total 400 250 100 150 Balance 1444.2 1405.6 745 198 Weight 345 lb 14.4 oz 345 lb 8 oz 336 lb 6.4 oz 341 lb 11.2 oz Gen: NAD CVS: RRR, No M/R Lungs: Dec BS, Course BS Abd: soft, Obese, ND Ext: 2+ edema in LE, no cyanosis, warm ext : Ridley in place CBC, BMP 04/08/17 05:25 04/08/17 05:25 Laboratory Tests 04/08/17 04/08/17 05:25 05:25 MCV 83.4 Calcium 7.6 L Phosphorus 4.3 Current Medications Amiodarone HCl (Cordarone -) 200 mg PO DAILY [facility] Atorvastatin Calcium (Lipitor -) 80 mg NGT HS [facility] Last Admin: 04/07/17 21:52 Dose: 80 mg Bacitracin (Bacitracin -) 1 applic TP DAILY [facility] Last Admin: 04/08/17 11:10 Dose: 1 applic Chlorhexidine Gluconate (Hibiclens For Decolonization -) 1 applic TP HS [facility] Last Admin: 04/07/17 21:53 Dose: 1 applic Chlorhexidine Gluconate (Peridex -) 15 ml MM BID [facility] Last Admin: 04/08/17 11:10 Dose: 15 ml Epoetin Severo (Procrit -) 20,000 unit IVPUSH ONCE ONE Stop: 04/08/17 06:01 Furosemide (Lasix Injection -) 80 mg IVPUSH BID@0600,1400 [facility] Last Admin: 04/08/17 05:49 Dose: 80 mg Norepinephrine Bitartrate 8, (000 mcg/ Dextrose) 258 mls @ 15.48 mls/hr IV TITR SARAH; 8 MCG/MIN PRN Reason: Protocol Last Admin: 04/07/17 22:50 Dose: 29.02 mls/hr Dopamine HCl 800,000 mcg/ (Sodium Chloride) 250 mls @ 22.98 mls/hr IV TITR SARAH ; 8 MCG/KG/MIN PRN Reason: Protocol Last Admin: 04/08/17 11:45 Dose: Not Given Propofol (Diprivan -) 100 mls @ 4.707 mls/hr IVPUSH TITR SARAH; 5 MCG/KG/MIN PRN Reason: Protocol Last Admin: 04/07/17 14:34 Dose: Not Given Insulin Aspart (Novolog Vial Sliding Scale -) 1 vial SQ ACHS SARAH PRN Reason: Protocol Last Admin: 04/08/17 11:46 Dose: 2 units Ranitidine HCl (Zantac Oral Solution -) 150 mg NGT DAILY [facility] Last Admin: 04/08/17 11:10 Dose: 150 mg Scopolamine HBr (Transderm-Scop -) 1 patch TD Q3D@2200 [facility] Last Admin: 04/06/17 21:39 Dose: 1 patch A/P 76 year old Gentleman with PMhx of CKD, CHF, Hypertension, Afib, Obesity, Prostate Ca who presented s/p cardiac arrest with SUJATA and Volume overload #Acute Renal Failure in setting of pre-existing CKD requiring dialysis Plan for HD today with Goal UF of 3.5-4L as tolerated will use sodium modeling, Low temp and albumin PRN to maintain BP continue Vasopressers to keep MAP > 65 Continue IV Lasix BID Will plan to continue TIW dialysis Dose all meds for intermittent HD #Anemia for PRBC transfusion with HD today Will continue high dose epogen given history of CKD #Shock/Resp Failure Management as per ICU possible transfer to acute care facility Thank you Garry Drew DO
[2017-04-08] MEDS ORDERED: EPOETIN ALFA 20,000 UNIT/1 ML VIAL IVPUSH ONE (15:45)
--- NOTE | 2017-04-08 16:18 | PN ---
Physical Exam: SUBJECTIVE: Patient seen and examined at bedside. Off sedation. Awake and alert. trached. No overnight events as per nursing staff. OBJECTIVE: Vital Signs Period Temp Pulse Resp BP Sys/Krishnan Pulse Ox Last 24 Hr 97.8 F-99.2 F 70-86 10-32 84-138/57-106 99-99 GENERAL:trached, awake and alert. . HEAD: Normal with no signs of trauma. LUNGS: bilateral rales, decreased breath sound HEART: RRR,no M/G/R ABDOMEN: obese, distended. 1+edema EXTREMITIES:3+ pitting edema bilat. SKIN: chronic LE skin changes. Laboratory Results - last 24 hr 04/06/17 04/07/17 04/07/17 14:09 16:51 22:11 WBC RBC Hgb Hct MCV MCHC RDW Plt Count MPV Sodium Potassium Chloride Carbon Dioxide Anion Gap BUN Creatinine POC Glucometer 199.24370 188.96411 Random Glucose Calcium Phosphorus Blood Type AB POSITIVE Antibody Screen Negative Crossmatch See Detail 04/08/17 04/08/17 04/08/17 05:09 05:25 05:25 WBC 9.7 RBC 2.74 L Hgb 7.6 L Hct 22.8 L MCV 83.4 MCHC 33.5 RDW 19.6 H Plt Count 234 MPV 8.2 Sodium 135 L Potassium 4.3 Chloride 96 L Carbon Dioxide 27 Anion Gap 12 BUN 68 H Creatinine 4.4 H POC Glucometer 200.53362 Random Glucose 161 H Calcium 7.6 L Phosphorus 4.3 Blood Type Antibody Screen Crossmatch 04/08/17 04/08/17 05:25 11:43 WBC RBC Hgb Hct MCV MCHC RDW Plt Count MPV Sodium Potassium Chloride Carbon Dioxide Anion Gap BUN Creatinine POC Glucometer 198.07044 Random Glucose Calcium Phosphorus Cancelled Blood Type Antibody Screen Crossmatch Active Medications Generic Name Dose Route Start Last Admin Trade Name Freq PRN Reason Stop Dose Admin Amiodarone HCl 200 mg 04/08/17 10:43 Cordarone - PO DAILY [facility] Atorvastatin Calcium 80 mg 03/18/17 09:45 04/07/17 21:52 Lipitor - NGT 80 mg HS SARAH Administration Bacitracin 1 applic 04/06/17 18:45 04/08/17 11:10 Bacitracin - TP 1 applic DAILY [facility] Administration Chlorhexidine Gluconate 1 applic 03/17/17 22:00 04/07/17 21:53 Hibiclens For Decolonization - TP 1 applic HS [facility]AH Administration Chlorhexidine Gluconate 15 ml 03/18/17 22:15 04/08/17 11:10 Peridex - MM 15 ml BID SARAH Administration Furosemide 80 mg 03/30/17 14:00 04/08/17 05:49 Lasix Injection - IVPUSH 80 mg BID@0600,1400 [facility]AH Administration Norepinephrine Bitartrate 8, 258 mls @ 15.48 mls/hr 03/30/17 08:15 04/07/17 22: 50 000 mcg/ Dextrose IV 29.02 mls/hr TITR SARAH Administration Protocol 8 MCG/MIN Dopamine HCl 800,000 mcg/ 250 mls @ 22.98 mls/hr 03/31/17 11:00 04/08/17 11:45 Sodium Chloride IV Not Given TITR SARAH Protocol 8 MCG/KG/MIN Propofol 100 mls @ 4.707 mls/hr 04/05/17 13:45 04/07/17 14:34 Diprivan - IVPUSH Not Given TITR SARAH Protocol 5 MCG/KG/MIN Insulin Aspart 1 vial 03/24/17 07:00 04/08/17 11:46 Novolog Vial Sliding Scale - SQ 2 units ACHS SARAH Administration Protocol Ranitidine HCl 150 mg 04/07/17 11:45 04/08/17 11:10 Zantac Oral Solution - NGT 150 mg DAILY [facility] Administration Scopolamine HBr 1 patch 04/03/17 22:00 04/06/17 21:39 Transderm-Scop - TD 1 patch Q3D@2200 [facility] Administration ASSESSMENT/PLAN: 76 y/o M with signifcant PMHx of CHF, HTN, Afib, and pulmonary HTN [facility] 2/2 vfib admitted to ICU Problem List - Problems (1) Cardiac arrest Assessment/Plan: * Patient is accepted to [facility]) * s/p trach 04/02/17 * Will get peg for tube feeds tomorrow. * currently on Levo 8mcg/hr * Maintaining MAP > 65 * Amiodarone 400mg PO daily * Continue ICU monitoring. (2) Positive culture findings in sputum Assessment/Plan: * ABx held as per ID * continue vent support. * will repeat AM labs. (3) Acute on chronic diastolic CHF (congestive heart failure) Assessment/Plan: * Lasix 80mg BID IVPUSH * HD with UF today * monitor I/O's * daily weights. (4) CKD (chronic kidney disease) Assessment/Plan: * Stage 4 GFR 23 * HD for today * perma cath scheduled for tomorrow. * continue Lasix 80mg IV BID (5) A-fib Assessment/Plan: * Currently paced * Continue Amiodarone * AC with heparin ggt--held for possible acute bleed. * Digoxin held due to renal function. (6) DVT prophylaxis Assessment/Plan: * Heparin GGT--held * SCD's bilat. Visit type - Emergency Visit Emergency Visit: Yes ED Registration Date: 03/17/17 Care time: The patient presented to the Emergency Department on the above date and was hospitalized for further evaluation of their emergent condition. - New Patient This patient is new to me today: No - Critical Care Critical Care patient: Yes Total Critical Care Time (in minutes): 35 Critical Care Statement: The care of this patient involved high complexity decision making to prevent further life threatening deterioration of the patient 's condition and/or to evalute & treat vital organ system(s) failure or risk of failure.
--- NOTE | 2017-04-08 18:45 | PN ---
Progress Note (short form) - Note Progress Note: Vascular Surgery Pt will need permacath Will do jessica. Hold tube feeds after midnight. Paul Velasquez DO
--- NOTE | 2017-04-08 19:02 | PN ---
Teaching Attending Note Name of Resident: Cleve Bourgeois ATTENDING PHYSICIAN STATEMENT I saw and evaluated the patient. I reviewed the resident's note and discussed the case with the resident. I agree with the resident's findings and plan as documented. SUBJECTIVE: Patient is in ICU , s/p post trach, on IV Levophed continue. Comfortable with no acute distress. OBJECTIVE: Vital Signs Temperature 98.8 F 04/08/17 14:10 Pulse Rate 88 04/08/17 18:20 Respiratory Rate 10 L 04/08/17 18:20 Blood Pressure 109/61 04/08/17 18:20 O2 Sat by Pulse Oximetry (%) 99 04/07/17 22:44 CBCD WBC 9.7 K/mm3 (4.0-10.0) 04/08/17 05:25 RBC 2.74 M/mm3 (4.00-5.60) L 04/08/17 05:25 Hgb 7.6 GM/dL (11.7-16.9) L 04/08/17 05:25 Hct 22.8 % (35.4-49) L 04/08/17 05:25 MCV 83.4 fl (80-96) 04/08/17 05:25 MCHC 33.5 g/dl (32.0-35.9) 04/08/17 05:25 RDW 19.6 % (11.9-15.9) H 04/08/17 05:25 Plt Count 234 K/MM3 (134-434) 04/08/17 05:25 MPV 8.2 fl (7.5-11.1) 04/08/17 05:25 CMP Sodium 135 mmol/L (136-145) L 04/08/17 05:25 Potassium 4.3 mmol/L (3.5-5.1) 04/08/17 05:25 Chloride 96 mmol/L (98-107) L 04/08/17 05:25 Carbon Dioxide 27 mmol/L (21-32) 04/08/17 05:25 Anion Gap 12 (8-16) 04/08/17 05:25 BUN 68 mg/dL (7-18) H 04/08/17 05:25 Creatinine 4.4 mg/dL (0.7-1.3) H 04/08/17 05:25 Creat Clearance w eGFR 15.97 (>60) 04/06/17 05:35 Random Glucose 161 mg/dL (74-106) H 04/08/17 05:25 Calcium 7.6 mg/dL (8.5-10.1) L 04/08/17 05:25 Total Bilirubin 0.9 mg/dL (0.2-1.0) 04/06/17 05:35 AST 18 U/L (15-37) 04/06/17 05:35 ALT 15 U/L (12-78) 04/06/17 05:35 Alkaline Phosphatase 69 U/L (45-117) 04/06/17 05:35 Total Protein 5.5 g/dl (6.4-8.2) L 04/06/17 05:35 Albumin 2.2 g/dl (3.4-5.0) L 04/06/17 05:35 CARDIAC ENZYMES Creatine Kinase 146 IU/L (39-308) 03/18/17 10:23 Troponin I 0.16 ng/ml (0.00-0.05) H D 03/18/17 10:23 Current Medications Generic Name Dose Route Start Last Admin Trade Name Freq PRN Reason Stop Dose Admin Amiodarone HCl 200 mg 04/08/17 10:43 Cordarone - PO DAILY [facility] Atorvastatin Calcium 80 mg 03/18/17 09:45 04/07/17 21:52 Lipitor - NGT 80 mg HS [facility] Administration Bacitracin 1 applic 04/06/17 18:45 04/08/17 11:10 Bacitracin - TP 1 applic DAILY [facility] Administration Chlorhexidine Gluconate 1 applic 03/17/17 22:00 04/07/17 21:53 Hibiclens For Decolonization - TP 1 applic HS [facility] Administration Chlorhexidine Gluconate 15 ml 03/18/17 22:15 04/08/17 11:10 Peridex - MM 15 ml BID [facility] Administration Furosemide 80 mg 03/30/17 14:00 04/08/17 05:49 Lasix Injection - IVPUSH 80 mg BID@0600,1400 [facility] Administration Norepinephrine Bitartrate 8, 258 mls @ 15.48 mls/hr 03/30/17 08:15 04/07/17 22: 50 000 mcg/ Dextrose IV 29.02 mls/hr TITR SARAH Administration Protocol 8 MCG/MIN Dopamine HCl 800,000 mcg/ 250 mls @ 22.98 mls/hr 03/31/17 11:00 04/08/17 11:45 Sodium Chloride IV Not Given TITR SARAH Protocol 8 MCG/KG/MIN Propofol 100 mls @ 4.707 mls/hr 04/05/17 13:45 04/07/17 14:34 Diprivan - IVPUSH Not Given TITR [facility] Protocol 5 MCG/KG/MIN Insulin Aspart 1 vial 03/24/17 07:00 04/08/17 11:46 Novolog Vial Sliding Scale - SQ 2 units ACHS SARAH Administration Protocol Ranitidine HCl 150 mg 04/07/17 11:45 04/08/17 11:10 Zantac Oral Solution - NGT 150 mg DAILY [facility] Administration Scopolamine HBr 1 patch 04/03/17 22:00 04/06/17 21:39 Transderm-Scop - TD 1 patch Q3D@2200 [facility] Administration Home Medications Medication Instructions Recorded Allopurinol 300 mg PO DAILY 03/17/17 Digoxin [Lanoxin -] 0.125 mg PO DAILY 03/17/17 Docusate Sodium [Colace -] 300 mg PO HS 03/17/17 Ferrous Sulfate 650 mg PO BID 03/17/17 Furosemide [Lasix -] 80 mg PO DAILY 03/17/17 Latanoprost 0.005% Eye Drops 1 drop OU HS 03/17/17 [Xalatan 0.005% Eye Drops -] Metolazone [Zaroxolyn -] 2.5 mg PO AM 03/17/17 Nystatin Cream [Mycostatin] 1 applic TP BID 03/17/17 Polyethylene Glycol 3350 [Miralax 17 gm PO DAILY 03/17/17 (For Daily Use) -] Sennosides [Evac-U-Gen] 2 tab PO DAILY 03/17/17 Simvastatin [Zocor -] 80 mg PO HS 03/17/17 Sod Lactate/Amm Lact/Pot Lact 1 applic TP BID 03/17/17 [Amlactin Ultra Body Cream] Triamcinolone 0.1% Cream 1 applic TP BID 03/17/17 [Aristocort] Warfarin Na [Coumadin -] 7.5 mg PO Q7D 03/17/17 Warfarin Sodium [Coumadin] 5 mg PO ASDIR 03/17/17 PE: as per resident's note ASSESSMENT AND PLAN: 76 y/o man with h/o Severe cardiomypathy( non ischemic ) ,with severely reduced EF, and PULm HTN, Diastolic dysfunction , A fib on AC, who presented with cardiac arrest (V fib ) from his [facility] # Acute hypoxic respiratory failure s/p Intubation s/p trach 04/02/17 now. off Dopamine but continue Levophed ; titrate as needed. Patient is accepted to [facility]) , peg tube feeds (family agreed to) consulted for Peg tube placement , most likely in am . # S/P cardiac arrest s/p hypothermic protocol: due to severe Right sided cardiomyopathy ,with Severe non-ischemic cardiomypoathy, patient has a defibrillator ,was interrogated on admission .On levophed ggt now for BP support to continue, continue po Amio. # Acute on Chronic renal Failure with ESRD now on HD , will continue HD as per nephro. # Acute hypokalemia repleted # sputum with MRSA s/p Vancomycin # Acute on chronic systolic and diastolic heart failure off lasix gtt. on IV LAsix now # A fib: rate is controlled on AMIODORAN CONTINUE DVT px :on heparin drip ; scdS BL
[2017-04-08] MEDS: PROPOFOL 100 ML IVPUSH SCH (19:11)
[2017-04-08] MEDS: NOREPINEPHRINE BITARTRATE IV SCH (19:12)
[2017-04-08] MEDS: DEXTROSE 5% IV SCH (19:12)
[2017-04-08] MEDS: WATER IV SCH (19:12)
[2017-04-08] MEDS: CHLORHEXIDINE GLUCONATE 4% CLEANSER FOR DECOLONIZATION TP SCH (22:11)
[2017-04-08] MEDS: ATORVASTATIN CA 80 MG TABLET (FP) NGT SCH (22:11)
[2017-04-09] MEDS ORDERED: NOREPINEPHRINE BITARTRATE 4 MG/4 ML ML IV ONE ×4 (03:34→21:42)
[2017-04-09] MEDS: DEXTROSE 5% IV SCH ×2 (04:10→10:50)
[2017-04-09] MEDS: NOREPINEPHRINE BITARTRATE IV SCH ×2 (04:10→10:50)
[2017-04-09] MEDS: WATER IV SCH ×2 (04:10→10:50)
[2017-04-09] MEDS ORDERED: HEMOQUE CONTROL SOLUTION ONE (04:24)
[2017-04-09] MEDS: BANATROL PLUS POWDER PACKET PO SCH ×3 (06:06→22:09)
[2017-04-09] MEDS: FUROSEMIDE 40 MG/4 ML INJECTABLE VIAL IVPUSH SCH ×2 (06:09→17:21)
[2017-04-09 06:12] LABS: MCH 28.2 pg (25.7-33.7); MCHC 33.6 g/dl (32.0-35.9); MEAN CELL VOLUME 84.1 fl (80-96); MEAN PLT VOLUME 8.2 fl (7.5-11.1); PLATELET COUNT 206 K/MM3 (134-434); RDW 19.4 % (11.9-15.9); WHITE BLOOD COUNT 9.5 K/mm3 (4.0-10.0)
[2017-04-09 06:30] LABS: CALCIUM 7.9 mg/dL (8.5-10.1); COCKROFT - GAULT 38.71; CREATININE 3.4 mg/dL (0.7-1.3); MAGNESIUM 2.4 mg/dL (1.8-2.4); PHOSPHOROUS 3.3 mg/dL (2.5-4.9)
[2017-04-09] MEDS: INSULIN SLIDING SCALE (NOVOLOG) 1 VIAL SQ SCH ×5 (06:43→22:06)
[2017-04-09] MEDS ORDERED: LIDOCAINE HCL 1%, 10 MG/ML (20ML VIAL) ONE ×2 (08:26→11:43)
[2017-04-09] MEDS ORDERED: PT OWN MED DRAWER 7, Y5N ONE (08:30)
[2017-04-09] MEDS: AMIODARONE HCL 200 MG TABLET (FP) PO SCH (09:00)
[2017-04-09] MEDS: RANITIDINE HCL 150 MG/10 ML UNIT-DOSE CUP NGT SCH (09:00)
--- NOTE | 2017-04-09 09:37 | PN ---
Teaching Attending Note Name of Resident: Cleve Bourgeois ATTENDING PHYSICIAN STATEMENT I saw and evaluated the patient. I reviewed the resident's note and discussed the case with the resident. I agree with the resident's findings and plan as documented. SUBJECTIVE: Patient continues to be in ICU. going for Permacath today. OBJECTIVE: Vital Signs Temperature 99.1 F 04/09/17 06:00 Pulse Rate 76 04/09/17 08:00 Respiratory Rate 22 04/09/17 08:00 Blood Pressure 101/57 04/09/17 08:00 O2 Sat by Pulse Oximetry (%) 100 04/08/17 22:00 CBCD WBC 9.5 K/mm3 (4.0-10.0) 04/09/17 05:40 RBC 2.89 M/mm3 (4.00-5.60) L 04/09/17 05:40 Hgb 8.2 GM/dL (11.7-16.9) L 04/09/17 05:40 Hct 24.3 % (35.4-49) L 04/09/17 05:40 MCV 84.1 fl (80-96) 04/09/17 05:40 MCHC 33.6 g/dl (32.0-35.9) 04/09/17 05:40 RDW 19.4 % (11.9-15.9) H 04/09/17 05:40 Plt Count 206 K/MM3 (134-434) 04/09/17 05:40 MPV 8.2 fl (7.5-11.1) 04/09/17 05:40 CMP Sodium 140 mmol/L (136-145) 04/09/17 05:40 Potassium 3.8 mmol/L (3.5-5.1) 04/09/17 05:40 Chloride 99 mmol/L (98-107) 04/09/17 05:40 Carbon Dioxide 28 mmol/L (21-32) 04/09/17 05:40 Anion Gap 13 (8-16) 04/09/17 05:40 BUN 43 mg/dL (7-18) H D 04/09/17 05:40 Creatinine 3.4 mg/dL (0.7-1.3) H D 04/09/17 05:40 Creat Clearance w eGFR 15.97 (>60) 04/06/17 05:35 Random Glucose 132 mg/dL (74-106) H 04/09/17 05:40 Calcium 7.9 mg/dL (8.5-10.1) L 04/09/17 05:40 Total Bilirubin 0.9 mg/dL (0.2-1.0) 04/06/17 05:35 AST 18 U/L (15-37) 04/06/17 05:35 ALT 15 U/L (12-78) 04/06/17 05:35 Alkaline Phosphatase 69 U/L (45-117) 04/06/17 05:35 Total Protein 5.5 g/dl (6.4-8.2) L 04/06/17 05:35 Albumin 2.2 g/dl (3.4-5.0) L 04/06/17 05:35 CARDIAC ENZYMES Creatine Kinase 146 IU/L (39-308) 03/18/17 10:23 Troponin I 0.16 ng/ml (0.00-0.05) H D 03/18/17 10:23 Current Medications Generic Name Dose Route Start Last Admin Trade Name Freq PRN Reason Stop Dose Admin Amiodarone HCl 200 mg 04/08/17 10:43 Cordarone - PO DAILY SARAH Atorvastatin Calcium 80 mg 03/18/17 09:45 04/08/17 22:11 Lipitor - NGT 80 mg HS SARAH Administration Bacitracin 1 applic 04/06/17 18:45 04/08/17 11:10 Bacitracin - TP 1 applic DAILY SARAH Administration Chlorhexidine Gluconate 1 applic 03/17/17 22:00 04/08/17 22:11 Hibiclens For Decolonization - TP 1 applic HS SARAH Administration Chlorhexidine Gluconate 15 ml 03/18/17 22:15 04/08/17 22:11 Peridex - MM 15 ml BID SARAH Administration Furosemide 80 mg 03/30/17 14:00 04/09/17 06:09 Lasix Injection - IVPUSH 80 mg BID@0600,1400 SARAH Administration Norepinephrine Bitartrate 8, 258 mls @ 15.48 mls/hr 03/30/17 08:15 04/09/17 04: 10 000 mcg/ Dextrose IV 19.35 mls/hr TITR SARAH Administration Protocol 8 MCG/MIN Dopamine HCl 800,000 mcg/ 250 mls @ 22.98 mls/hr 03/31/17 11:00 04/08/17 11:45 Sodium Chloride IV Not Given TITR [facility] Protocol 8 MCG/KG/MIN Propofol 100 mls @ 4.707 mls/hr 04/05/17 13:45 04/08/17 19:11 Diprivan - IVPUSH Not Given TITR [facility] Protocol 5 MCG/KG/MIN Insulin Aspart 1 vial 03/24/17 07:00 04/09/17 06:49 Novolog Vial Sliding Scale - SQ Not Given ACHS [facility] Protocol Ranitidine HCl 150 mg 04/07/17 11:45 04/08/17 11:10 Zantac Oral Solution - NGT 150 mg DAILY SARAH Administration Scopolamine HBr 1 patch 04/03/17 22:00 04/06/17 21:39 Transderm-Scop - TD 1 patch Q3D@2200 SARAH Administration Home Medications Medication Instructions Recorded Allopurinol 300 mg PO DAILY 03/17/17 Digoxin [Lanoxin -] 0.125 mg PO DAILY 03/17/17 Docusate Sodium [Colace -] 300 mg PO HS 03/17/17 Ferrous Sulfate 650 mg PO BID 03/17/17 Furosemide [Lasix -] 80 mg PO DAILY 03/17/17 Latanoprost 0.005% Eye Drops 1 drop OU HS 03/17/17 [Xalatan 0.005% Eye Drops -] Metolazone [Zaroxolyn -] 2.5 mg PO AM 03/17/17 Nystatin Cream [Mycostatin] 1 applic TP BID 03/17/17 Polyethylene Glycol 3350 [Miralax 17 gm PO DAILY 03/17/17 (For Daily Use) -] Sennosides [Evac-U-Gen] 2 tab PO DAILY 03/17/17 Simvastatin [Zocor -] 80 mg PO HS 03/17/17 Sod Lactate/Amm Lact/Pot Lact 1 applic TP BID 03/17/17 [Amlactin Ultra Body Cream] Triamcinolone 0.1% Cream 1 applic TP BID 03/17/17 [Aristocort] Warfarin Na [Coumadin -] 7.5 mg PO Q7D 03/17/17 Warfarin Sodium [Coumadin] 5 mg PO ASDIR 03/17/17 PE: as per resident's note ASSESSMENT AND PLAN: 76 y/o man with h/o Severe cardiomypathy( non ischemic ) ,with severely reduced EF, and PULm HTN, Diastolic dysfunction , A fib on AC, who presented with cardiac arrest (V fib ) from his retirement # Acute hypoxic respiratory failure s/p Intubation s/p trach 04/02/17 . off Dopamine but continue Levophed ; titrate as needed. Patient is accepted to [facility]) , Plan was peg tube insertion but is a high risk patient for Peg tube . # S/P cardiac arrest s/p hypothermic protocol: due to severe Right sided cardiomyopathy ,with Severe non-ischemic cardiomypoathy, patient has a defibrillator ,was interrogated on admission .On levophed ggt now for BP support to continue, continue po Amio. # Acute on Chronic renal Failure with ESRD now on HD , will continue HD as per nephro. # Acute hypokalemia repleted # sputum with MRSA s/p Vancomycin # Acute on chronic systolic and diastolic heart failure off lasix gtt. on IV LAsix now # A fib: rate is controlled on AMIODORAN CONTINUE, heparin was on hold due to bleeding from trach.side and patient received transfusion. DVT px :Off heparin drip due to having bleeding complications from trach site. possible discharge to LTAC
[2017-04-09] MEDS: BACITRACIN 15 GM TUBE TOPICAL OINTMENT TP SCH (10:00)
[2017-04-09] MEDS: CHLORHEXIDINE GLUCONATE 0.12% 15ML CUP MM SCH ×2 (10:13→21:35)
--- NOTE | 2017-04-09 10:22 | CONSULT ---
Admitting History and Physical - Primary Care Physician PCP: Dino Vora - Admission History of Present Illness: Per EMR: "76 y/o man with h/o Severe cardiomypathy( non ischemic ) ,with severely reduced EF, and PULm HTN, Diastolic dysfunction , A fib on AC, who presented with cardiac arrest (V fib ) from his correction" S/P cardiac arrest: due to severe R sided cardiomyopathy. Severe non-ischemic cardiomypoathy Acute hypoxic resp failure :due to CHF , Left PNA ( sputum cx with MRSA ) Vent support . PEG was being considered. Speech/swallow evaluation ordered. 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: No: Dementia Cardiovascular: Yes: AFIB, CHF, HTN, Pulmonary Hypertension Pulmonary: Yes: COPD, Sleep Apnea Gastrointestinal: No: GI Bleed Renal/: Yes: Renal Failure, Renal Inusuff Heme/Onc: Yes: Anemia Endocrine: No: Hyperthyroidism, Hypothyroidism - Past Surgical History Past Surgical History: Yes: Permanent Pacemaker - Advance Directives Advance Directives: Yes: Health Care Proxy - Smoking History Smoking history: Unknown if ever smoked - Alcohol/Substance Use Hx Alcohol Use: No History - Admission Reason For Visit: CARDIAC ARREST - General Mental Status: Awake and Alert, Able to Follow Commands Attention: Distractible, Mild Impairment Ability to Follow Directions: Fair - Hearing Hearing: Normal Hearing Aide: No Speech Evaluation - Communication Primary Language: AMHARIC - Swallow Evaluation/Bedside Assessment Current Nutritional Intake: NG Tube Tracheostomy Present: Yes Patient on Ventilator: Yes Dentition: Yes: Adequate Facial Symmetry at Rest: Symmetrical Laryngeal Movement: Able to Palpate Recommendations - Speech Evaluation, Impression/Plan Impression: Pt on ventilator, able to speak over cuff with strong voice, some vocal wetness, Articulation seemed precise. Responded to a couple of simple questions. eg name, "long time"Delayed response. Swallows secretions occasionally. For OR today so PO trials not attempted. Excellent candidate for passy nafisa valve to facilitate upper airway sensation and function,expedite weaning from ventilator, enable verbal communication,improve socialization and cognition. I suspect pt will be able to swallow, atleast a modified diet, with good vocal quality, precise articulation,able to expectorate saliva/secretions from mouth. Recommended Therapies: Speech, Language, Swallowing - Disposition Discharge to: To be Determined (LTAC) - Dysphagia Impressions/Plan Dysphagia Impressions: Ongoing Evaluation *Silent aspiration: cannot be R/O at bedside Recommendations: Passy Nafisa Valve, Other (continue swallowing evaluation.)
--- NOTE | 2017-04-09 10:47 | PN ---
Progress Note, Physician Chief Complaint: Pt alert. History of Present Illness: The patient is a 76 year old black male, with a significant past medical history of diastolic CHF with severe systolic RV dysfunction, HTN, HLD, Atrial Fibrillation, Morbid obesity, Prostate CA, Sleep apnea on O2, Glaucoma BIBA from [facility] s/p Cardiac arrest. As per EMS, the patient was initially seated in PT doing leg exercises when he became unresponsive. Patient was brought back into his room in the [place] and chest compressions were initiated by nursing staff. Down time was between 4-5 minutes. patient was shocked once and ROSC was noted. As per EMS, patient was given 150 mg of Amiodarone in field and was brought into the ED for further evaluation. Upon arrival to the ED, patients (health care proxy) gave consent to intubate over the telephone. 2:48 PM- 20 mg of Etomidate given through IV 2:49 PM- 150 mg of Succinylcholine given through IV 2:50 PM- Patient intubated with 7.5 ET tube, positioned 24 cm at the lip - Current Medication List Current Medications: Active Medications Amiodarone HCl (Cordarone -) 200 mg PO DAILY [facility] Last Admin: 04/09/17 09:00 Dose: 200 mg Atorvastatin Calcium (Lipitor -) 80 mg NGT HS [facility] Last Admin: 04/08/17 22:11 Dose: 80 mg Bacitracin (Bacitracin -) 1 applic TP DAILY [facility] Last Admin: 04/08/17 11:10 Dose: 1 applic Chlorhexidine Gluconate (Hibiclens For Decolonization -) 1 applic TP HS [facility] Last Admin: 04/08/17 22:11 Dose: 1 applic Chlorhexidine Gluconate (Peridex -) 15 ml MM BID [facility] Last Admin: 04/09/17 10:13 Dose: 15 ml Furosemide (Lasix Injection -) 80 mg IVPUSH BID@0600,1400 [facility] Last Admin: 04/09/17 06:09 Dose: 80 mg Norepinephrine Bitartrate 8, (000 mcg/ Dextrose) 258 mls @ 15.48 mls/hr IV TITR SARAH; 8 MCG/MIN PRN Reason: Protocol Last Admin: 04/09/17 04:10 Dose: 19.35 mls/hr Dopamine HCl 800,000 mcg/ (Sodium Chloride) 250 mls @ 22.98 mls/hr IV TITR SARAH ; 8 MCG/KG/MIN PRN Reason: Protocol Last Admin: 04/08/17 11:45 Dose: Not Given Propofol (Diprivan -) 100 mls @ 4.707 mls/hr IVPUSH TITR SARAH; 5 MCG/KG/MIN PRN Reason: Protocol Last Admin: 04/08/17 19:11 Dose: Not Given Insulin Aspart (Novolog Vial Sliding Scale -) 1 vial SQ ACHS SARAH PRN Reason: Protocol Last Admin: 04/09/17 06:49 Dose: Not Given Ranitidine HCl (Zantac Oral Solution -) 150 mg NGT DAILY [facility] Last Admin: 04/09/17 09:00 Dose: 150 mg Scopolamine HBr (Transderm-Scop -) 1 patch TD Q3D@2200 [facility] Last Admin: 04/06/17 21:39 Dose: 1 patch - Objective Vital Signs: Vital Signs Temperature 99.2 F 04/09/17 10:00 Pulse Rate 79 04/09/17 10:00 Respiratory Rate 27 H 04/09/17 10:00 Blood Pressure 101/64 04/09/17 10:00 O2 Sat by Pulse Oximetry (%) 100 04/09/17 09:44 Constitutional: Yes: Anxious, Obese Eyes: Yes: WNL HENT: Yes: WNL Neck: Yes: Other (tracheostomy) Cardiovascular: Yes: Pulse Irregular, S2 (split) Respiratory: Yes: Diminished Gastrointestinal: Yes: Soft, Abdomen, Obese Genitourinary: Yes: Oliguria Musculoskeletal: Yes: Joint Stiffness, Muscle Weakness Extremities: Yes: Cool Edema: Yes Edema: LLE: 2+, RLE: 2+ Peripheral Pulses WNL: No Peripheral Pulses: Left Doralis Pedis: 1+, Right Dorsalis Pedis: 1+ Integumentary: Yes: Venous Stasis Changes Neurological: Yes: Alert, Weakness Psychiatric: Yes: Other Labs: CBC, BMP 04/09/17 05:40 04/09/17 05:40 INR, PTT INR 1.37 (0.82-1.09) H 04/07/17 06:25 Abnormal Lab Results 04/06/17 04/09/17 04/09/17 14:09 05:40 05:40 RBC 2.89 L Hgb 8.2 L Hct 24.3 L RDW 19.4 H BUN 43 H D Creatinine 3.4 H D Random Glucose 132 H Calcium 7.9 L Crossmatch See Detail - ....Imaging Chest X-ray: Image Reviewed (mild improvement in left hemithorax opacification) Other: Image Reviewed (telemetry: periods of AV pacing) Problem List - Problems (1) Cardiac arrest Assessment/Plan: Amiodarone reduced to 200 mg daily. Remains on norepinephrine. As discussed with Dr. Gomez and CCU team, agree with repeat ECHO, given pt' s protracted course and refractory hypotension, with attention to LVEF ( preserved on initial ECHO weeks ago; hx normal LVEF and severe RV dysfunction for years). For hemodialysis; for insertion of permacath. Code(s): I46.9 - CARDIAC ARREST, CAUSE UNSPECIFIED (2) Acute on chronic diastolic CHF (congestive heart failure) Assessment/Plan: see under "cardiac arrest'. Code(s): I50.33 - ACUTE ON CHRONIC DIASTOLIC (CONGESTIVE) HEART FAILURE (3) Hyperlipidemia Assessment/Plan: high-dose statin. Code(s): E78.5 - HYPERLIPIDEMIA, UNSPECIFIED (4) Sleep apnea Code(s): G47.30 - SLEEP APNEA, UNSPECIFIED (5) HTN (hypertension) Code(s): I10 - ESSENTIAL (PRIMARY) HYPERTENSION (6) 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 hypertension Assessment/Plan: Hx COPD; severe RV failure. White-out of left lung; mild improvement. F/u Is and Os. F/u c/s. S/p tracheostomy; remains ventrilator-dependent. On amiodarone (reduced to 200 mg daily). Code(s): I27.2 - OTHER SECONDARY PULMONARY HYPERTENSION (7) Hyperkalemia Assessment/Plan: f/u electrolytes closely, particularly while on amiodarone (K, Mg, and PO4 initially elevated); hemodialysis/UF per family independence case manager. Code(s): E87.5 - HYPERKALEMIA (8) Anemia Code(s): D64.9 - ANEMIA, UNSPECIFIED (9) Acute on chronic renal failure Code(s): N17.9 - ACUTE KIDNEY FAILURE, UNSPECIFIED N18.9 - CHRONIC KIDNEY DISEASE, UNSPECIFIED Assessment/Plan CC time spent reviewing record, examining pt, writing note: 45 minutes
[2017-04-09] MEDS ORDERED: MIDAZOLAM HCL 5 MG/1 ML Single Dose Vial IVPUSH ONE (11:45)
--- NOTE | 2017-04-09 12:27 | PN ---
Progress Note (short form) - Note Progress Note: Renal Follow up for SUJATA/Fluid overload Pt seen and examined in the ICU awake on the vent, suctioning himself remains on Levophed s/p dialysis yesterday for permacath insertion tomorrow Vital Signs Temperature 99.2 F 04/09/17 10:00 Pulse Rate 79 04/09/17 10:00 Respiratory Rate 27 H 04/09/17 10:00 Blood Pressure 101/64 04/09/17 10:00 O2 Sat by Pulse Oximetry (%) 100 04/09/17 09:44 Intake & Output 04/06/17 04/07/17 04/08/17 04/09/17 23:59 23:59 23:59 23:59 Intake Total 1655.6 845 1048 580 Output Total 250 100 270 200 Balance 1405.6 745 778 380 Weight 345 lb 8 oz 336 lb 6.4 oz 341 lb 11.2 oz 337 lb Gen: NAD CVS: RRR, No M/R Lungs: Dec BS, Course BS Abd: soft, Obese, ND Ext: 2+ edema in LE, no cyanosis, warm ext : Ridley in place CBC, BMP 04/09/17 05:40 04/09/17 05:40 Laboratory Tests 04/09/17 05:40 Calcium 7.9 L Phosphorus 3.3 D Magnesium 2.4 Current Medications Amiodarone HCl (Cordarone -) 200 mg PO DAILY [facility] Last Admin: 04/09/17 09:00 Dose: 200 mg Atorvastatin Calcium (Lipitor -) 80 mg NGT HS [facility] Last Admin: 04/08/17 22:11 Dose: 80 mg Bacitracin (Bacitracin -) 1 applic TP DAILY SARAH Last Admin: 04/08/17 11:10 Dose: 1 applic Chlorhexidine Gluconate (Hibiclens For Decolonization -) 1 applic TP HS [facility] Last Admin: 04/08/17 22:11 Dose: 1 applic Chlorhexidine Gluconate (Peridex -) 15 ml MM BID [facility] Last Admin: 04/09/17 10:13 Dose: 15 ml Furosemide (Lasix Injection -) 80 mg IVPUSH BID@0600,1400 [facility] Last Admin: 04/09/17 06:09 Dose: 80 mg Norepinephrine Bitartrate 8, (000 mcg/ Dextrose) 258 mls @ 15.48 mls/hr IV TITR SARAH; 8 MCG/MIN PRN Reason: Protocol Last Admin: 04/09/17 04:10 Dose: 19.35 mls/hr Dopamine HCl 800,000 mcg/ (Sodium Chloride) 250 mls @ 22.98 mls/hr IV TITR SARAH ; 8 MCG/KG/MIN PRN Reason: Protocol Last Admin: 04/08/17 11:45 Dose: Not Given Propofol (Diprivan -) 100 mls @ 4.707 mls/hr IVPUSH TITR SARAH; 5 MCG/KG/MIN PRN Reason: Protocol Last Admin: 04/08/17 19:11 Dose: Not Given Insulin Aspart (Novolog Vial Sliding Scale -) 1 vial SQ ACHS SARAH PRN Reason: Protocol Last Admin: 04/09/17 06:49 Dose: Not Given Ranitidine HCl (Zantac Oral Solution -) 150 mg NGT DAILY [facility] Last Admin: 04/09/17 09:00 Dose: 150 mg Scopolamine HBr (Transderm-Scop -) 1 patch TD Q3D@2200 [facility] Last Admin: 04/06/17 21:39 Dose: 1 patch A/P 76 year old Gentleman with PMhx of CKD, CHF, Hypertension, Afib, Obesity, Prostate Ca who presented s/p cardiac arrest with SUJATA and Volume overload #Acute Renal Failure in setting of pre-existing CKD requiring dialysis Remains oliguric at this time s/p dialysis yesterday, no acute indication for dialysis today for permacath insertion today and dialysis tomorrow pt will need 3x weekly maintience dialysis for the near future and pt with poor urine output and volume overload recommended HD orders for the acute care facility: 3x weekly HD (MWF), 4 hour treatment with regular size dialyzer with blood flow of 350 to 400 on 2K/2.5Ca/137Na bath. Estimated Dry weight around 136 Kg ( weight on intial admission). Aggressive UF as tolerated. Na modeling and Low temp as needed to maintain BP. Recommend high dose Epogen with HD (29084 units IV 3x weekly) Pt with possiblity of recovery of renal function so would trend BUN/Cr and urine output. #Anemia Will continue high dose epogen given history of CKD #Shock/Resp Failure Management as per ICU possible transfer to [facility] facility Thank you Garry Drew DO
[2017-04-09] MEDS: SODIUM CHLORIDE IV SCH (13:19)
[2017-04-09] MEDS: DOPAMINE HCL IV SCH (13:19)
--- NOTE | 2017-04-09 14:11 | PN ---
Teaching Attending Note Name of Resident: Fani Allison ATTENDING PHYSICIAN STATEMENT I saw and evaluated the patient. I reviewed the resident's note and discussed the case with the resident. I agree with the resident's findings and plan as documented. SUBJECTIVE: Patient seen and examined in the ICU. Remains awake and interactive. Remains on 10 mcq NE for hemodynamic support. Intake & Output 04/06/17 04/07/17 04/08/17 04/09/17 23:59 23:59 23:59 23:59 Intake Total 1655.6 845 1048 580 Output Total 250 100 270 200 Balance 1405.6 745 778 380 Weight 345 lb 8 oz 336 lb 6.4 oz 341 lb 11.2 oz 337 lb Last Vital Signs Temp Pulse Resp BP Pulse Ox 99.2 F 81 27 H 113/78 100 04/09/17 10:00 04/09/17 12:00 04/09/17 12:22 04/09/17 12:00 04/09/17 12:23 Active Medications Amiodarone HCl (Cordarone -) 200 mg PO DAILY [facility] Last Admin: 04/09/17 09:00 Dose: 200 mg Atorvastatin Calcium (Lipitor -) 80 mg NGT HS [facility] Last Admin: 04/08/17 22:11 Dose: 80 mg Bacitracin (Bacitracin -) 1 applic TP DAILY [facility] Last Admin: 04/09/17 10:00 Dose: 1 applic Chlorhexidine Gluconate (Hibiclens For Decolonization -) 1 applic TP HS [facility] Last Admin: 04/08/17 22:11 Dose: 1 applic Chlorhexidine Gluconate (Peridex -) 15 ml MM BID [facility] Last Admin: 04/09/17 10:13 Dose: 15 ml Epoetin Severo (Procrit -) 20,000 unit IVPUSH ONCE ONE Stop: 04/10/17 09:01 Furosemide (Lasix Injection -) 80 mg IVPUSH BID@0600,1400 [facility] Last Admin: 04/09/17 06:09 Dose: 80 mg Norepinephrine Bitartrate 8, (000 mcg/ Dextrose) 258 mls @ 15.48 mls/hr IV TITR SARAH; 8 MCG/MIN PRN Reason: Protocol Last Admin: 04/09/17 10:50 Dose: 29.02 mls/hr Dopamine HCl 800,000 mcg/ (Sodium Chloride) 250 mls @ 22.98 mls/hr IV TITR SARAH ; 8 MCG/KG/MIN PRN Reason: Protocol Last Admin: 04/09/17 13:19 Dose: Not Given Propofol (Diprivan -) 100 mls @ 4.707 mls/hr IVPUSH TITR SARAH; 5 MCG/KG/MIN PRN Reason: Protocol Last Admin: 04/08/17 19:11 Dose: Not Given Insulin Aspart (Novolog Vial Sliding Scale -) 1 vial SQ ACHS SARAH PRN Reason: Protocol Last Admin: 04/09/17 11:55 Dose: 2 units Ranitidine HCl (Zantac Oral Solution -) 150 mg NGT DAILY [facility] Last Admin: 04/09/17 09:00 Dose: 150 mg Scopolamine HBr (Transderm-Scop -) 1 patch TD Q3D@2200 [facility] Last Admin: 04/06/17 21:39 Dose: 1 patch Gen: Awake and interactive Heart: RRR, +systolic murmur Lung: scattered rhonchi Abd: soft, obese, edematous Ext: + edema Laboratory Results - last 24 hr 04/06/17 04/08/17 04/08/17 14:09 05:25 17:10 WBC RBC Hgb Hct MCV MCHC RDW Plt Count MPV Sodium Potassium Chloride Carbon Dioxide Anion Gap BUN Creatinine POC Glucometer [phone] Random Glucose Calcium Phosphorus Magnesium Cortisol AM Sample 18.2 Blood Type AB POSITIVE Antibody Screen Negative Crossmatch See Detail 04/08/17 04/09/17 04/09/17 22:07 05:40 05:40 WBC 9.5 RBC 2.89 L Hgb 8.2 L Hct 24.3 L MCV 84.1 MCHC 33.6 RDW 19.4 H Plt Count 206 MPV 8.2 Sodium 140 Potassium 3.8 Chloride 99 Carbon Dioxide 28 Anion Gap 13 BUN 43 H D Creatinine 3.4 H D POC Glucometer [phone] Random Glucose 132 H Calcium 7.9 L Phosphorus 3.3 D Magnesium 2.4 Cortisol AM Sample Blood Type Antibody Screen Crossmatch 04/09/17 05:53 WBC RBC Hgb Hct MCV MCHC RDW Plt Count MPV Sodium Potassium Chloride Carbon Dioxide Anion Gap BUN Creatinine POC Glucometer [phone] Random Glucose Calcium Phosphorus Magnesium Cortisol AM Sample Blood Type Antibody Screen Crossmatch ASSESSMENT AND PLAN: S/P Vfib Cardiac Arrest Acute on Chronic Hypoxic Respiratory Failure S/P Tracheostomy Acute on Chronic Diastolic Heart Failure Severe Pulmonary HTN S/P BiV PPM CAD +Troponins Atrial Fibrillation HTN CKD Hyperlipidemia DM COPD Morbid Obesity Obstructive Sleep Apnea Anemia - Monitor off ABX - Amiodarone - Normal transfusion thresholds - monitor H/H - Off Hydrocortisone - titrate levophed - monitor urine output, creatinine - taper FiO2 to keep SpO2 >90% - spontaneous breathing trials as tolerated - enteral feeds - DVT/GI prophylaxis - For LTAC transfer Dr Gomez critical care time spent in reviewing chart, evaluating patient and formulating plan 40 min
--- NOTE | 2017-04-09 14:12 | PROC ---
Central Line Insertion Indication: Poor Venous Access, Sepsis, Vasopressor Risks and Benefits Explained: Yes Consent on Chart: Yes Central Line: Triple Lumen Catheter Anesthesia: 1% Lidocaine Sterile Technique: Yes Ultrasound Guided Assistance: Yes Position: Left Internal Jugular Post Insertion: Yes: Bilateral Breath Sounds, Bilateral Chest Expansion, Chest X-Ray Ordered Sterile Dressing Applied: Yes
[2017-04-09] MEDS ORDERED: MIDAZOLAM HCL 2 MG/2 ML SINGLE DOSE VIAL ONE (14:45)
--- NOTE | 2017-04-09 14:54 | PN ---
Physical Exam: SUBJECTIVE: Patient seen and examined at bedside. Off sedation. Awake and alert. trached. No overnight events as per nursing staff. OBJECTIVE: Vital Signs Period Temp Pulse Resp BP Sys/Krishnan Pulse Ox Last 24 Hr 97.8 F-99.2 F 72-90 10-30 78-127/50-95 100-100 GENERAL:trached, awake and alert. . HEAD: Normal with no signs of trauma. LUNGS: bilateral rales, decreased breath sound HEART: RRR,no M/G/R ABDOMEN: obese, distended. 1+edema EXTREMITIES:3+ pitting edema bilat. SKIN: chronic LE skin changes Laboratory Results - last 24 hr 04/08/17 04/08/17 04/08/17 05:25 17:10 22:07 WBC RBC Hgb Hct MCV MCHC RDW Plt Count MPV Sodium Potassium Chloride Carbon Dioxide Anion Gap BUN Creatinine POC Glucometer 188.67601 188.82056 Random Glucose Calcium Phosphorus Magnesium Cortisol AM Sample 18.2 04/09/17 04/09/17 04/09/17 05:40 05:40 05:53 WBC 9.5 RBC 2.89 L Hgb 8.2 L Hct 24.3 L MCV 84.1 MCHC 33.6 RDW 19.4 H Plt Count 206 MPV 8.2 Sodium 140 Potassium 3.8 Chloride 99 Carbon Dioxide 28 Anion Gap 13 BUN 43 H D Creatinine 3.4 H D POC Glucometer 164.32116 Random Glucose 132 H Calcium 7.9 L Phosphorus 3.3 D Magnesium 2.4 Cortisol AM Sample Active Medications Generic Name Dose Route Start Last Admin Trade Name Freq PRN Reason Stop Dose Admin Amiodarone HCl 200 mg 04/08/17 10:43 04/09/17 09:00 Cordarone - PO 200 mg DAILY SARAH Administration Atorvastatin Calcium 80 mg 03/18/17 09:45 04/08/17 22:11 Lipitor - NGT 80 mg HS SARAH Administration Bacitracin 1 applic 04/06/17 18:45 04/09/17 10:00 Bacitracin - TP 1 applic DAILY SARAH Administration Chlorhexidine Gluconate 1 applic 03/17/17 22:00 04/08/17 22:11 Hibiclens For Decolonization - TP 1 applic HS SARAH Administration Chlorhexidine Gluconate 15 ml 03/18/17 22:15 04/09/17 10:13 Peridex - MM 15 ml BID SARAH Administration Epoetin Severo 20,000 unit 04/10/17 09:00 Procrit - IVPUSH 04/10/17 09:01 ONCE ONE Furosemide 80 mg 03/30/17 14:00 04/09/17 06:09 Lasix Injection - IVPUSH 80 mg BID@0600,1400 SARAH Administration Norepinephrine Bitartrate 8, 258 mls @ 15.48 mls/hr 03/30/17 08:15 04/09/17 10: 50 000 mcg/ Dextrose IV 29.02 mls/hr TITR SARAH Administration Protocol 8 MCG/MIN Dopamine HCl 800,000 mcg/ 250 mls @ 22.98 mls/hr 03/31/17 11:00 04/09/17 13:19 Sodium Chloride IV Not Given TITR SARAH Protocol 8 MCG/KG/MIN Propofol 100 mls @ 4.707 mls/hr 04/05/17 13:45 04/08/17 19:11 Diprivan - IVPUSH Not Given TITR SARAH Protocol 5 MCG/KG/MIN Insulin Aspart 1 vial 03/24/17 07:00 04/09/17 11:55 Novolog Vial Sliding Scale - SQ 2 units ACHS SARAH Administration Protocol Ranitidine HCl 150 mg 04/07/17 11:45 04/09/17 09:00 Zantac Oral Solution - NGT 150 mg DAILY SARAH Administration Scopolamine HBr 1 patch 04/03/17 22:00 04/06/17 21:39 Transderm-Scop - TD 1 patch Q3D@2200 SARAH Administration ASSESSMENT/PLAN: 76 y/o M with signifcant PMHx of CHF, HTN, Afib, and pulmonary HTN admitted from residential s/p cardiac arrest 2/2 vfib admitted to ICU Problem List - Problems (1) Cardiac arrest Assessment/Plan: * Patient is accepted to [place]([facility]) * Permacath placed today * s/p trach 04/02/17 * Will get peg for tube feeds tomorrow. * currently on Levo 10mcg/hr * Maintaining MAP > 65 * Amiodarone 400mg PO daily * Continue ICU monitoring. (2) Positive culture findings in sputum Assessment/Plan: * ABx held as per ID * continue vent support. * will repeat AM labs. (3) Acute on chronic diastolic CHF (congestive heart failure) Assessment/Plan: * Lasix 80mg BID IVPUSH * HD with UF today * monitor I/O's * daily weights. (4) CKD (chronic kidney disease) Assessment/Plan: * Stage 4 GFR 23 * HD for today * trialysis cath placed today * continue Lasix 80mg IV BID (5) A-fib Assessment/Plan: * Currently paced * Continue Amiodarone * AC with heparin ggt--held for possible acute bleed. * Digoxin held due to renal function. (6) DVT prophylaxis Assessment/Plan: * Heparin GGT--held * SCD's bilat. Visit type - Emergency Visit Emergency Visit: Yes ED Registration Date: 03/17/17 Care time: The patient presented to the Emergency Department on the above date and was hospitalized for further evaluation of their emergent condition. - New Patient This patient is new to me today: No - Critical Care Critical Care patient: Yes Total Critical Care Time (in minutes): 33 Critical Care Statement: The care of this patient involved high complexity decision making to prevent further life threatening deterioration of the patient 's condition and/or to evalute & treat vital organ system(s) failure or risk of failure.
--- NOTE | 2017-04-09 14:57 | PN ---
Physical Exam: SUBJECTIVE: Patient seen and examined. he is awake. No overnight events. OBJECTIVE: Vital Signs Period Temp Pulse Resp BP Sys/Krishnan Pulse Ox Last 24 Hr 97.8 F-99.2 F 72-90 10-30 78-127/50-95 100-100 GENERAL: The patient is awake, on mechanical ventilation. HEAD: Normal with no signs of trauma. EYES: sclera anicteric, conjunctiva clear. ENT: moist mucous membranes, trachea. NECK: Trachea midline, full range of motion, supple, trialysis cath on right side, central line on left side of the neck. LUNGS: Breath sounds equal, coarse breath sounds bilaterally, crackles B/L, no accessory muscle use. HEART: Regular rate and rhythm, S1, S2 without murmur, rub or gallop. ABDOMEN: Obese, soft, nontender, distended, normoactive bowel sounds, no guarding, no rebound, no masses, edema present. EXTREMITIES: 2+ pulses, warm, 2+ edema in LE and abdomen. NEUROLOGICAL: No facial asymmetry, following commands, motor 1/5 in upper extremities, 1/5 in lower extremities, gait not observed. PSYCH: Awake. Ridley cath, draining yellow urine. Rectal tube. Dialysis cath inserted 04/06/17, central line 04/09/17. Laboratory Results - last 24 hr 04/08/17 04/08/17 04/08/17 05:25 17:10 22:07 WBC RBC Hgb Hct MCV MCHC RDW Plt Count MPV Sodium Potassium Chloride Carbon Dioxide Anion Gap BUN Creatinine POC Glucometer 188.74332 188.12823 Random Glucose Calcium Phosphorus Magnesium Cortisol AM Sample 18.2 04/09/17 04/09/17 04/09/17 05:40 05:40 05:53 WBC 9.5 RBC 2.89 L Hgb 8.2 L Hct 24.3 L MCV 84.1 MCHC 33.6 RDW 19.4 H Plt Count 206 MPV 8.2 Sodium 140 Potassium 3.8 Chloride 99 Carbon Dioxide 28 Anion Gap 13 BUN 43 H D Creatinine 3.4 H D POC Glucometer 164.97754 Random Glucose 132 H Calcium 7.9 L Phosphorus 3.3 D Magnesium 2.4 Cortisol AM Sample Active Medications Generic Name Dose Route Start Last Admin Trade Name Freq PRN Reason Stop Dose Admin Amiodarone HCl 200 mg 04/08/17 10:43 04/09/17 09:00 Cordarone - PO 200 mg DAILY SARAH Administration Atorvastatin Calcium 80 mg 03/18/17 09:45 04/08/17 22:11 Lipitor - NGT 80 mg HS SARAH Administration Bacitracin 1 applic 04/06/17 18:45 04/09/17 10:00 Bacitracin - TP 1 applic DAILY SARAH Administration Chlorhexidine Gluconate 1 applic 03/17/17 22:00 04/08/17 22:11 Hibiclens For Decolonization - TP 1 applic HS SARAH Administration Chlorhexidine Gluconate 15 ml 03/18/17 22:15 04/09/17 10:13 Peridex - MM 15 ml BID SARAH Administration Epoetin Severo 20,000 unit 04/10/17 09:00 Procrit - IVPUSH 04/10/17 09:01 ONCE ONE Furosemide 80 mg 03/30/17 14:00 04/09/17 06:09 Lasix Injection - IVPUSH 80 mg BID@0600,1400 SARAH Administration Norepinephrine Bitartrate 8, 258 mls @ 15.48 mls/hr 03/30/17 08:15 04/09/17 10: 50 000 mcg/ Dextrose IV 29.02 mls/hr TITR SARAH Administration Protocol 8 MCG/MIN Dopamine HCl 800,000 mcg/ 250 mls @ 22.98 mls/hr 03/31/17 11:00 04/09/17 13:19 Sodium Chloride IV Not Given TITR SARAH Protocol 8 MCG/KG/MIN Propofol 100 mls @ 4.707 mls/hr 04/05/17 13:45 04/08/17 19:11 Diprivan - IVPUSH Not Given TITR SARAH Protocol 5 MCG/KG/MIN Insulin Aspart 1 vial 03/24/17 07:00 04/09/17 11:55 Novolog Vial Sliding Scale - SQ 2 units ACHS SARAH Administration Protocol Ranitidine HCl 150 mg 04/07/17 11:45 04/09/17 09:00 Zantac Oral Solution - NGT 150 mg DAILY SARAH Administration Scopolamine HBr 1 patch 04/03/17 22:00 04/06/17 21:39 Transderm-Scop - TD 1 patch Q3D@2200 SARAH Administration CXR: improvement from yesterday, better areation on left side. ASSESSMENT/PLAN: 76 yr old man with extensive cardiac and pulmonary history now with renal insufficiency s/p cardiac arrest. Neuro awake, not following commands, trying to communicate Pulmonary s/p trach placement 04/02 f/u CXR Vented on volume assist control with 45% FiO2 Cardiovascular Hypotensive requiring pressor norepi 10 mcg/hr maintain MAP >65 amiodarone decreased to 200mg po daily afib - paced rhythm (biventricular pacemaker) heparin drip for anticoagulation - held hydrocortisone initiated 03/22 for refractory shock following cardiac arrest, slow taper off HLD: lipitor 80mg HS po f/u Cardiology consultation Infectious Disease wbc count trending down off abx today f/u ID recommendation Renal permcatch scheduled today, plans for scheduled dialysis MWF, 4h and epogen oliguiric renal insufficiency with volume overload s/p transfusion Hgb/hct, today Hg 7.6, maintain hgb >7.0 continue lasix BID 80mg IVpb monitor elecrolytes, f/u nephrology consultation Hematological stable hgb/hct FOBT negative s/p epogen administeration GI no recommendation for PEG tube insertion due to pt's body habitus/risk on infection tube feeding; Glucerna 1.5 protonix daily for prophylaxis banana flakes daily for loose stools Endocrine cortisol level pending DM II, HgbA1c 6.4 Glucerna feeds DVT PPCX: medical AC held due to acute anemia, edema in b/l le unable to use SCD 's Diet: tube feeding Disposition: monitor in ICU, family agreed to LTAC, he will go there tomorrow after morning dialysis Problem List - Problems (1) A-fib Code(s): I48.91 - UNSPECIFIED ATRIAL FIBRILLATION Qualifiers: Atrial fibrillation type: unspecified Qualified Code(s): I48.91 - Unspecified atrial fibrillation (2) Acute on chronic diastolic CHF (congestive heart failure) Code(s): I50.33 - ACUTE ON CHRONIC DIASTOLIC (CONGESTIVE) HEART FAILURE (3) Anemia Code(s): D64.9 - ANEMIA, UNSPECIFIED (4) CKD (chronic kidney disease) Code(s): N18.9 - CHRONIC KIDNEY DISEASE, UNSPECIFIED Qualifiers: Chronic kidney disease stage: stage 4 (severe) Qualified Code(s): N18.4 - Chronic kidney disease, stage 4 (severe) (5) Cardiac arrest Code(s): I46.9 - CARDIAC ARREST, CAUSE UNSPECIFIED (6) DVT prophylaxis Code(s): QHD8717 - (7) HTN (hypertension) Code(s): I10 - ESSENTIAL (PRIMARY) HYPERTENSION (8) Hyperkalemia Code(s): E87.5 - HYPERKALEMIA (9) Hyperlipidemia Code(s): E78.5 - HYPERLIPIDEMIA, UNSPECIFIED (10) 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 hypertension Code(s): I27.2 - OTHER SECONDARY PULMONARY HYPERTENSION (11) Sleep apnea Code(s): G47.30 - SLEEP APNEA, UNSPECIFIED Visit type - Emergency Visit Emergency Visit: Yes ED Registration Date: 03/17/17 Care time: The patient presented to the Emergency Department on the above date and was hospitalized for further evaluation of their emergent condition. - New Patient This patient is new to me today: No - Critical Care Critical Care patient: Yes Total Critical Care Time (in minutes): 45 Critical Care Statement: The care of this patient involved high complexity decision making to prevent further life threatening deterioration of the patient 's condition and/or to evalute & treat vital organ system(s) failure or risk of failure.
[2017-04-09] MEDS ORDERED: ceFAZolin SODIUM 1 GM VIAL ONE (15:23)
[2017-04-09] MEDS ORDERED: LIDOCAINE HCL 1%, 10 MG/ML (20ML VIAL) IJ ONE ×2 (15:26)
--- NOTE | 2017-04-09 15:48 | OP ---
Operative Note - Note: Operative Date: 04/09/17 Pre-Operative Diagnosis: ESRD Operation: Insertion of permacath Post-Operative Diagnosis: Same as Pre-op Surgeon: Paul Velasquez Anesthesia: Fractional Estimated Blood Loss (mls): 50 Operative Report Dictated: Yes
[2017-04-09] MEDS: PROPOFOL 100 ML IVPUSH SCH (18:45)
--- NOTE | 2017-04-09 19:03 | OP ---
DATE OF OPERATION: 04/09/2017 PREOPERATIVE DIAGNOSIS: End-stage renal disease. POSTOPERATIVE DIAGNOSIS: End-stage renal disease. PROCEDURE: Insertion of Perma-Cath. SURGEON: Paul Lockett DO ESTIMATED BLOOD LOSS: Fractional, 50 mL. INDICATIONS: The patient is a 76-year-old male that is in the ICU, had a cardiac arrest and has been on pressors due to heart failure and went into renal failure. He has a right IJ Shiley that needs to be switched over to a Perma-Cath. The patient's family consented for the procedure understanding all risks, benefits, alternatives. The patient was then taken to the operating room. DESCRIPTION OF PROCEDURE: Once in the operating room, laid on the operating table in a supine manner and the area of the right neck and chest were prepped and draped in a sterile surgical manner. We then went ahead and under fluoroscopy placed a port using a floppy guidewire through the existing Trialysis catheter and the Trialysis catheter was taken out. We then went ahead and injected 10 mL of lidocaine 1% above and below the clavicle. We then, using a 15 blade, made a 1-cm incision below the clavicle. Using an 11 blade, we extended the incision at the puncture site. We then tunneled the Perma-Cath up to the puncture site. We then went ahead and placed a breakaway sheath over the guidewire into the vein under fluoroscopy and then the cannula and guidewire were removed. The catheter was placed inside the sheath. The sheath was broken away. The catheter was placed inside the vein. Neck of the catheter was nice and smooth. Tip of the catheter was located outside the right atrium. We then siva back on each port of the catheter, and there was good flow. Heparinized saline was injected and 2,000 units of IV heparin was injected into each port. Biosyn 4-0 was used in 2 simple sutures were placed at the puncture site. Nylon 3-0 was used and the catheter was attached to the skin. Biopatch, Steri-Strips, 4 x 4 and Tegaderms were placed. The patient tolerated the procedure well. No complications. The patient was transferred to the PACU in stable condition and then to the ICU where chest x-ray will be obtained. PAUL LOCKETT DO HIGH RISK OB/[id number]
[2017-04-09] MEDS: ATORVASTATIN CA 80 MG TABLET (FP) NGT SCH (21:34)
[2017-04-09] MEDS: CHLORHEXIDINE GLUCONATE 4% CLEANSER FOR DECOLONIZATION TP SCH (21:35)
[2017-04-09] MEDS: SCOPOLAMINE HYDROBROMIDE 1 PATCH PATCH.TD72 TD SCH (21:36)
[2017-04-10] MEDS: BANATROL PLUS POWDER PACKET PO SCH ×3 (06:22→22:00)
[2017-04-10] MEDS: INSULIN SLIDING SCALE (NOVOLOG) 1 VIAL SQ SCH ×4 (06:22→22:00)
[2017-04-10] MEDS: FUROSEMIDE 40 MG/4 ML INJECTABLE VIAL IVPUSH SCH ×2 (06:22→15:00)
[2017-04-10 06:42] LABS: MCHC 34.1 g/dl (32.0-35.9); MEAN CELL VOLUME 85.2 fl (80-96); MEAN PLT VOLUME 8.1 fl (7.5-11.1); PLATELET COUNT 178 K/MM3 (134-434); RDW 19.8 % (11.9-15.9); WHITE BLOOD COUNT 10.1 K/mm3 (4.0-10.0)
[2017-04-10 07:06] LABS: COCKROFT - GAULT 32.97
[2017-04-10 07:59] LABS: PHOSPHOROUS 3.7 mg/dL (2.5-4.9)
[2017-04-10] MEDS ORDERED: EPOETIN ALFA 20,000 UNIT/1 ML VIAL IVPUSH ONE (09:00)
[2017-04-10] MEDS: CHLORHEXIDINE GLUCONATE 0.12% 15ML CUP MM SCH ×2 (11:33→22:00)
[2017-04-10] MEDS: RANITIDINE HCL 150 MG/10 ML UNIT-DOSE CUP NGT SCH (11:33)
[2017-04-10] MEDS: DOPAMINE HCL IV SCH (11:33)
[2017-04-10] MEDS: AMIODARONE HCL 200 MG TABLET (FP) PO SCH (11:33)
[2017-04-10] MEDS: SODIUM CHLORIDE IV SCH (11:33)
--- NOTE | 2017-04-10 11:59 | PN ---
Teaching Attending Note Name of Resident: Naif Reilly ATTENDING PHYSICIAN STATEMENT I saw and evaluated the patient. I reviewed the resident's note and discussed the case with the resident. I agree with the resident's findings and plan as documented. SUBJECTIVE: Patient seen and examined in the ICU. Remains awake and interactive. Remains on 8 mcq NE for hemodynamic support. Permacath inserted yesterday. Intake & Output 04/07/17 04/08/17 04/09/17 04/10/17 23:59 23:59 23:59 23:59 Intake Total 845 1048 1140.1 784.8 Output Total 100 270 310 150 Balance 745 778 830.1 634.8 Weight 336 lb 6.4 oz 341 lb 11.2 oz 337 lb 337 lb 11.2 oz Last Vital Signs Temp Pulse Resp BP Pulse Ox 98.2 F 85 16 104/63 99 04/10/17 06:00 04/10/17 10:30 04/10/17 10:00 04/10/17 10:00 04/10/17 10:30 Active Medications Amiodarone HCl (Cordarone -) 200 mg PO DAILY COUNTS INCLUDE 234 BEDS AT THE [facility] Last Admin: 04/10/17 11:33 Dose: 200 mg Atorvastatin Calcium (Lipitor -) 80 mg NGT HS COUNTS INCLUDE 234 BEDS AT THE [facility] Last Admin: 04/09/17 21:34 Dose: 80 mg Bacitracin (Bacitracin -) 1 applic TP DAILY SARAH Last Admin: 04/09/17 10:00 Dose: 1 applic Chlorhexidine Gluconate (Hibiclens For Decolonization -) 1 applic TP HS COUNTS INCLUDE 234 BEDS AT THE [facility] Last Admin: 04/09/17 21:35 Dose: 1 applic Chlorhexidine Gluconate (Peridex -) 15 ml MM BID SARAH Last Admin: 04/10/17 11:33 Dose: 15 ml Furosemide (Lasix Injection -) 80 mg IVPUSH BID@0600,1400 SARAH Last Admin: 04/10/17 06:22 Dose: 80 mg Norepinephrine Bitartrate 8, (000 mcg/ Dextrose) 258 mls @ 15.48 mls/hr IV TITR SARAH; 8 MCG/MIN PRN Reason: Protocol Last Titration: 04/09/17 22:00 Dose: 12 mcg/min Dopamine HCl 800,000 mcg/ (Sodium Chloride) 250 mls @ 22.98 mls/hr IV TITR SARAH ; 8 MCG/KG/MIN PRN Reason: Protocol Last Admin: 04/10/17 11:33 Dose: Not Given Propofol (Diprivan -) 100 mls @ 4.707 mls/hr IVPUSH TITR SARAH; 5 MCG/KG/MIN PRN Reason: Protocol Last Admin: 04/09/17 18:45 Dose: Not Given Insulin Aspart (Novolog Vial Sliding Scale -) 1 vial SQ ACHS SARAH PRN Reason: Protocol Last Admin: 04/10/17 06:22 Dose: 2 units Ranitidine HCl (Zantac Oral Solution -) 150 mg NGT DAILY COUNTS INCLUDE 234 BEDS AT THE [facility] Last Admin: 04/10/17 11:33 Dose: 150 mg Scopolamine HBr (Transderm-Scop -) 1 patch TD Q3D@2200 COUNTS INCLUDE 234 BEDS AT THE [facility] Last Admin: 04/09/17 21:36 Dose: 1 patch Gen: Awake and interactive Heart: RRR, +systolic murmur Lung: scattered rhonchi Abd: soft, obese, edematous Ext: + edema Laboratory Results - last 24 hr 04/06/17 04/09/17 04/09/17 14:09 11:52 18:36 WBC RBC Hgb Hct MCV MCHC RDW Plt Count MPV Sodium Potassium Chloride Carbon Dioxide Anion Gap BUN Creatinine POC Glucometer 176.30516 180.74554 Random Glucose Calcium Phosphorus Blood Type AB POSITIVE Antibody Screen Negative Crossmatch See Detail 04/09/17 04/10/17 04/10/17 22:04 05:30 05:30 WBC 10.1 H RBC 3.03 L Hgb 8.8 L Hct 25.8 L MCV 85.2 MCHC 34.1 RDW 19.8 H Plt Count 178 MPV 8.1 Sodium 140 Potassium 3.7 Chloride 100 Carbon Dioxide 27 Anion Gap 13 BUN 49 H Creatinine 4.0 H POC Glucometer 150.75716 Random Glucose 146 H Calcium 8.0 L Phosphorus 3.7 Blood Type Antibody Screen Crossmatch 04/10/17 05:51 WBC RBC Hgb Hct MCV MCHC RDW Plt Count MPV Sodium Potassium Chloride Carbon Dioxide Anion Gap BUN Creatinine POC Glucometer 176.04579 Random Glucose Calcium Phosphorus Blood Type Antibody Screen Crossmatch ASSESSMENT AND PLAN: S/P Vfib Cardiac Arrest Acute on Chronic Hypoxic Respiratory Failure S/P Tracheostomy Acute on Chronic Diastolic Heart Failure Severe Pulmonary HTN S/P BiV PPM CAD +Troponins Atrial Fibrillation HTN CKD Hyperlipidemia DM COPD Morbid Obesity Obstructive Sleep Apnea Anemia - Monitor off ABX - Amiodarone - Normal transfusion thresholds - monitor H/H - Off Hydrocortisone - titrate levophed - Taper NE - taper FiO2 to keep SpO2 >90% - spontaneous breathing trials as tolerated - enteral feeds - DVT/GI prophylaxis - For LTAC transfer Dr Gomez critical care time spent in reviewing chart, evaluating patient and formulating plan 40 min
[2017-04-10] MEDS: BACITRACIN 15 GM TUBE TOPICAL OINTMENT TP SCH (12:27)
--- NOTE | 2017-04-10 13:13 | PN ---
Progress Note (short form) - Note Progress Note: Renal Follow up for SUJATA/Fluid overload Pt seen and examined in the ICU s/p dialysis this am with 4kg UF BP marginal, maintained on Levophed for transfer today to the acute care facility Vital Signs Temperature 98.2 F 04/10/17 06:00 Pulse Rate 81 04/10/17 12:00 Respiratory Rate 23 04/10/17 12:10 Blood Pressure 88/69 04/10/17 12:00 O2 Sat by Pulse Oximetry (%) 99 04/10/17 10:30 Intake & Output 04/07/17 04/08/17 04/09/17 04/10/17 23:59 23:59 23:59 23:59 Intake Total 845 1048 1140.1 784.8 Output Total 100 270 310 150 Balance 745 778 830.1 634.8 Weight 336 lb 6.4 oz 341 lb 11.2 oz 337 lb 337 lb 11.2 oz Gen: NAD CVS: RRR, No M/R Lungs: Dec BS, Course BS Abd: soft, Obese, ND Ext: 2+ edema in LE, no cyanosis, warm ext : Ridley in place CBC, BMP 04/10/17 05:30 04/10/17 05:30 Laboratory Tests 04/10/17 05:30 Calcium 8.0 L Phosphorus 3.7 Current Medications Amiodarone HCl (Cordarone -) 200 mg PO DAILY [facility] Last Admin: 04/10/17 11:33 Dose: 200 mg Atorvastatin Calcium (Lipitor -) 80 mg NGT HS [facility] Last Admin: 04/09/17 21:34 Dose: 80 mg Bacitracin (Bacitracin -) 1 applic TP DAILY SARAH Last Admin: 04/10/17 12:27 Dose: 1 applic Chlorhexidine Gluconate (Hibiclens For Decolonization -) 1 applic TP HS [facility] Last Admin: 04/09/17 21:35 Dose: 1 applic Chlorhexidine Gluconate (Peridex -) 15 ml MM BID [facility] Last Admin: 04/10/17 11:33 Dose: 15 ml Furosemide (Lasix Injection -) 80 mg IVPUSH BID@0600,1400 [facility] Last Admin: 04/10/17 06:22 Dose: 80 mg Norepinephrine Bitartrate 8, (000 mcg/ Dextrose) 258 mls @ 15.48 mls/hr IV TITR SARAH; 8 MCG/MIN PRN Reason: Protocol Last Titration: 04/09/17 22:00 Dose: 12 mcg/min Dopamine HCl 800,000 mcg/ (Sodium Chloride) 250 mls @ 22.98 mls/hr IV TITR SARAH ; 8 MCG/KG/MIN PRN Reason: Protocol Last Admin: 04/10/17 11:33 Dose: Not Given Propofol (Diprivan -) 100 mls @ 4.707 mls/hr IVPUSH TITR SARAH; 5 MCG/KG/MIN PRN Reason: Protocol Last Admin: 04/09/17 18:45 Dose: Not Given Insulin Aspart (Novolog Vial Sliding Scale -) 1 vial SQ ACHS SARAH PRN Reason: Protocol Last Admin: 04/10/17 12:25 Dose: 2 units Ranitidine HCl (Zantac Oral Solution -) 150 mg NGT DAILY [facility] Last Admin: 04/10/17 11:33 Dose: 150 mg Scopolamine HBr (Transderm-Scop -) 1 patch TD Q3D@2200 [facility] Last Admin: 04/09/17 21:36 Dose: 1 patch A/P 76 year old Gentleman with PMhx of CKD, CHF, Hypertension, Afib, Obesity, Prostate Ca who presented s/p cardiac arrest with SUJATA and Volume overload #Acute Renal Failure in setting of pre-existing CKD requiring dialysis Tolerated dialysis well this am with 4kg UF continue 3x weekly dialysis continue to trend BUN/Cr and urine output to monitor for renal recovery dose all meds for intermittent HD #Anemia Will continue high dose epogen given history of CKD #Shock/Resp Failure Management as per ICU transfer to acute care facility today Thank you Garry Drew DO
--- NOTE | 2017-04-10 14:25 | PN ---
Teaching Attending Note Name of Resident: Cleve Bourgeois ATTENDING PHYSICIAN STATEMENT I saw and evaluated the patient. I reviewed the resident's note and discussed the case with the resident. I agree with the resident's findings and plan as documented. SUBJECTIVE: Patient is in the ICU, awake, alert, eyes open. at the bedside. On 8 mcq NE for hemodynamic support OBJECTIVE: Vital Signs Temperature 98.2 F 04/10/17 06:00 Pulse Rate 81 04/10/17 12:00 Respiratory Rate 20 04/10/17 13:57 Blood Pressure 88/69 04/10/17 12:00 O2 Sat by Pulse Oximetry (%) 99 04/10/17 10:30 GENERAL: awake ,alert and and interactive. lying in bed with no acute distress HEAD/Neck : Normal with no signs of trauma. positive for right sided Permacath ( inserted on 04/09/2017) LUNGS: bilateral rales, decreased breath sound at basis, positive for tracheostomy HEART: RRR, S1S2 positive, MONICA 3/6, positive for defibrillator ABDOMEN: soft, BS positive, large abdomen, 1+edema EXTREMITIES:3+ pitting edema bilat. SKIN: chronic LE skin changes : positive for rectal tube CBCD WBC 10.1 K/mm3 (4.0-10.0) H 04/10/17 05:30 RBC 3.03 M/mm3 (4.00-5.60) L 04/10/17 05:30 Hgb 8.8 GM/dL (11.7-16.9) L 04/10/17 05:30 Hct 25.8 % (35.4-49) L 04/10/17 05:30 MCV 85.2 fl (80-96) 04/10/17 05:30 MCHC 34.1 g/dl (32.0-35.9) 04/10/17 05:30 RDW 19.8 % (11.9-15.9) H 04/10/17 05:30 Plt Count 178 K/MM3 (134-434) 04/10/17 05:30 MPV 8.1 fl (7.5-11.1) 04/10/17 05:30 CMP Sodium 140 mmol/L (136-145) 04/10/17 05:30 Potassium 3.7 mmol/L (3.5-5.1) 04/10/17 05:30 Chloride 100 mmol/L (98-107) 04/10/17 05:30 Carbon Dioxide 27 mmol/L (21-32) 04/10/17 05:30 Anion Gap 13 (8-16) 04/10/17 05:30 BUN 49 mg/dL (7-18) H 04/10/17 05:30 Creatinine 4.0 mg/dL (0.7-1.3) H 04/10/17 05:30 Creat Clearance w eGFR 15.97 (>60) 04/06/17 05:35 Random Glucose 146 mg/dL (74-106) H 04/10/17 05:30 Calcium 8.0 mg/dL (8.5-10.1) L 04/10/17 05:30 Total Bilirubin 0.9 mg/dL (0.2-1.0) 04/06/17 05:35 AST 18 U/L (15-37) 04/06/17 05:35 ALT 15 U/L (12-78) 04/06/17 05:35 Alkaline Phosphatase 69 U/L (45-117) 04/06/17 05:35 Total Protein 5.5 g/dl (6.4-8.2) L 04/06/17 05:35 Albumin 2.2 g/dl (3.4-5.0) L 04/06/17 05:35 CARDIAC ENZYMES Creatine Kinase 146 IU/L (39-308) 03/18/17 10:23 Troponin I 0.16 ng/ml (0.00-0.05) H D 03/18/17 10:23 Current Medications Generic Name Dose Route Start Last Admin Trade Name Brodieq PRN Reason Stop Dose Admin Amiodarone HCl 200 mg 04/08/17 10:43 04/10/17 11:33 Cordarone - PO 200 mg DAILY SARAH Administration Atorvastatin Calcium 80 mg 03/18/17 09:45 04/09/17 21:34 Lipitor - NGT 80 mg HS SARAH Administration Bacitracin 1 applic 04/06/17 18:45 04/10/17 12:27 Bacitracin - TP 1 applic DAILY SARAH Administration Chlorhexidine Gluconate 1 applic 03/17/17 22:00 04/09/17 21:35 Hibiclens For Decolonization - TP 1 applic HS SARAH Administration Chlorhexidine Gluconate 15 ml 03/18/17 22:15 04/10/17 11:33 Peridex - MM 15 ml BID SARAH Administration Furosemide 80 mg 03/30/17 14:00 04/10/17 06:22 Lasix Injection - IVPUSH 80 mg BID@0600,1400 SARAH Administration Norepinephrine Bitartrate 8, 258 mls @ 15.48 mls/hr 03/30/17 08:15 04/09/17 22: 00 000 mcg/ Dextrose IV 12 mcg/min TITR SARAH Titration Protocol 8 MCG/MIN Dopamine HCl 800,000 mcg/ 250 mls @ 22.98 mls/hr 03/31/17 11:00 04/10/17 11:33 Sodium Chloride IV Not Given TITR SARAH Protocol 8 MCG/KG/MIN Propofol 100 mls @ 4.707 mls/hr 04/05/17 13:45 04/09/17 18:45 Diprivan - IVPUSH Not Given TITR SARAH Protocol 5 MCG/KG/MIN Insulin Aspart 1 vial 03/24/17 07:00 04/10/17 12:25 Novolog Vial Sliding Scale - SQ 2 units ACHS SARAH Administration Protocol Ranitidine HCl 150 mg 04/07/17 11:45 04/10/17 11:33 Zantac Oral Solution - NGT 150 mg DAILY SARAH Administration Scopolamine HBr 1 patch 04/03/17 22:00 04/09/17 21:36 Transderm-Scop - TD 1 patch Q3D@2200 SARAH Administration Home Medications Medication Instructions Recorded Allopurinol 300 mg PO DAILY 03/17/17 Ferrous Sulfate 650 mg PO BID 03/17/17 Latanoprost 0.005% Eye Drops 1 drop OU HS 03/17/17 [Xalatan 0.005% Eye Drops -] Nystatin Cream [Mycostatin Cream -] 1 applic TP BID 03/17/17 Simvastatin [Zocor -] 80 mg PO HS 03/17/17 Sod Lactate/Amm Lact/Pot Lact 1 applic TP BID 03/17/17 [Amlactin Ultra Body Cream] Triamcinolone 0.1% Cream 1 applic TP BID 03/17/17 [Aristocort 0.1% Cream -] Amiodarone HCl [Cordarone -] 200 mg PO DAILY tablet 04/10/17 Atorvastatin Ca [Lipitor] 80 mg NGT HS tablet 04/10/17 Bacitracin - [Bacitracin Topical 1 applic TP DAILY tube 04/10/17 Ointment -] Furosemide Injection [Lasix 80 mg IVPUSH BID@0600,1400 vial 04/10/17 Injection -] Norepinephrine Bitartrate 8,000 mcg IV TITR ml 04/10/17 [Levophed Bitartrate -] ASSESSMENT AND PLAN: 76 y/o man with h/o Severe cardiomypathy( non ischemic ) ,with severely reduced EF, and PULm HTN, Diastolic dysfunction , A fib on AC, who presented with cardiac arrest (V fib ) from his shelter # Acute hypoxic respiratory failure s/p Intubation s/p trach now on 04/02/17. On Levophed 8Meq now, off Dopamine. Patient is accepted to [facility]) ,No peg tube for now, since it's high risk since patient has distended belly. POsitive for NG tube now for feeding. # S/P cardiac arrest s/p hypothermic protocol: due to severe Right sided cardiomyopathy ,with Severe non-ischemic cardiomypoathy, patient has a defibrillator ,was interrogated on admission .On levophed ggt now for BP support to continue, continue po Amio. # Acute on Chronic renal Failure with ESRD now on HD s/p permacath at the right side,l continue HD as per nephro. # Acute hypokalemia repleted # sputum with MRSA s/p Vancomycin # Acute on chronic systolic and diastolic heart failure off lasix gtt. on IV LAsix now # A fib: rate is controlled on AMIODORAN CONTINUE DVT px :on heparin drip discharge patient to LTAC, accepting Physician that discussed with.
[2017-04-10] MEDS ORDERED: PT OWN MED DRAWER 7, Y5N ONE (14:26)
--- NOTE | 2017-04-10 14:36 | PN ---
Physical Exam: SUBJECTIVE: Patient seen and examined.He is trying to communicate today. On trach. No overnight events. OBJECTIVE: Vital Signs Period Temp Pulse Resp BP Sys/Krishnan Pulse Ox Last 24 Hr 97.5 F-99 F 64-87 16-27 85-156/41-82 99-100 GENERAL: The patient is awake, on mechanical ventilation. HEAD: Normal with no signs of trauma. EYES: sclera anicteric, conjunctiva clear. ENT: moist mucous membranes, trachea. NECK: Trachea midline, full range of motion, supple, perm cath on r side, central line on left side of the neck. LUNGS: Breath sounds equal, coarse breath sounds bilaterally, crackles B/L, no accessory muscle use. HEART: Regular rate and rhythm, S1, S2 without murmur, rub or gallop. ABDOMEN: Obese, soft, nontender, distended, normoactive bowel sounds, no guarding, no rebound, no masses, edema present. EXTREMITIES: 2+ pulses, warm, 2+ edema in LE and abdomen. NEUROLOGICAL: No facial asymmetry, following commands, motor 1/5 in upper extremities, 1/5 in lower extremities, gait not observed. PSYCH: Awake. Ridley cath, draining yellow urine. Rectal tube draining. Dialysis cath inserted 04/06/17, central line 04/09/17. Laboratory Results - last 24 hr 04/06/17 04/09/17 04/09/17 14:09 11:52 18:36 WBC RBC Hgb Hct MCV MCHC RDW Plt Count MPV Sodium Potassium Chloride Carbon Dioxide Anion Gap BUN Creatinine POC Glucometer 176.41056 180.74098 Random Glucose Calcium Phosphorus Blood Type AB POSITIVE Antibody Screen Negative Crossmatch See Detail 04/09/17 04/10/17 04/10/17 22:04 05:30 05:30 WBC 10.1 H RBC 3.03 L Hgb 8.8 L Hct 25.8 L MCV 85.2 MCHC 34.1 RDW 19.8 H Plt Count 178 MPV 8.1 Sodium 140 Potassium 3.7 Chloride 100 Carbon Dioxide 27 Anion Gap 13 BUN 49 H Creatinine 4.0 H POC Glucometer 150.50552 Random Glucose 146 H Calcium 8.0 L Phosphorus 3.7 Blood Type Antibody Screen Crossmatch 04/10/17 04/10/17 05:51 12:16 WBC RBC Hgb Hct MCV MCHC RDW Plt Count MPV Sodium Potassium Chloride Carbon Dioxide Anion Gap BUN Creatinine POC Glucometer 176.56483 198.71573 Random Glucose Calcium Phosphorus Blood Type Antibody Screen Crossmatch Active Medications Generic Name Dose Route Start Last Admin Trade Name Lor PRN Reason Stop Dose Admin Amiodarone HCl 200 mg 04/08/17 10:43 04/10/17 11:33 Cordarone - PO 200 mg DAILY SARAH Administration Atorvastatin Calcium 80 mg 03/18/17 09:45 04/09/17 21:34 Lipitor - NGT 80 mg HS SARAH Administration Bacitracin 1 applic 04/06/17 18:45 04/10/17 12:27 Bacitracin - TP 1 applic DAILY SARAH Administration Chlorhexidine Gluconate 1 applic 03/17/17 22:00 04/09/17 21:35 Hibiclens For Decolonization - TP 1 applic HS SARAH Administration Chlorhexidine Gluconate 15 ml 03/18/17 22:15 04/10/17 11:33 Peridex - MM 15 ml BID SARAH Administration Furosemide 80 mg 03/30/17 14:00 04/10/17 06:22 Lasix Injection - IVPUSH 80 mg BID@0600,1400 SARAH Administration Norepinephrine Bitartrate 8, 258 mls @ 15.48 mls/hr 03/30/17 08:15 04/09/17 22: 00 000 mcg/ Dextrose IV 12 mcg/min TITR SARAH Titration Protocol 8 MCG/MIN Dopamine HCl 800,000 mcg/ 250 mls @ 22.98 mls/hr 03/31/17 11:00 04/10/17 11:33 Sodium Chloride IV Not Given TITR SARAH Protocol 8 MCG/KG/MIN Propofol 100 mls @ 4.707 mls/hr 04/05/17 13:45 04/09/17 18:45 Diprivan - IVPUSH Not Given TITR SARAH Protocol 5 MCG/KG/MIN Insulin Aspart 1 vial 03/24/17 07:00 04/10/17 12:25 Novolog Vial Sliding Scale - SQ 2 units ACHS SARAH Administration Protocol Ranitidine HCl 150 mg 04/07/17 11:45 04/10/17 11:33 Zantac Oral Solution - NGT 150 mg DAILY SARAH Administration Scopolamine HBr 1 patch 04/03/17 22:00 04/09/17 21:36 Transderm-Scop - TD 1 patch Q3D@2200 SARAH Administration CXR: improvement from yesterday, better areation B/L. ASSESSMENT/PLAN: 76 yr old man with extensive cardiac and pulmonary history now with renal insufficiency s/p cardiac arrest. Neuro awake, trying to communicate, Pulmonary s/p trach placement 04/02 f/u CXR Vented on volume assist control with 45% FiO2 Cardiovascular Hypotensive requiring pressor norepi 8 mcg/hr, off Dopa maintain MAP >65 amiodarone decreased to 200mg po daily afib - paced rhythm (biventricular pacemaker) heparin drip for anticoagulation - held hydrocortisone initiated 03/22 for refractory shock following cardiac arrest, slow taper off HLD: lipitor 80mg HS po f/u Cardiology consultation Infectious Disease wbc count trending down off abx today f/u ID recommendation Renal HD done this morning, 4 kg taken off plans for scheduled dialysis MWF, 4h and epogen oliguiric renal insufficiency with volume overload s/p transfusion Hgb/hct, stable now continue lasix BID 80mg IVpb monitor elecrolytes, f/u nephrology consultation Hematological stable hgb/hct FOBT negative s/p epogen administeration GI no recommendation for PEG tube insertion due to pt's body habitus/risk on infection tube feeding; Glucerna 1.5 protonix daily for prophylaxis banana flakes daily for loose stools Endocrine cortisol level pending DM II, HgbA1c 6.4 Glucerna feeds DVT PPCX: medical AC held due to acute anemia, edema in b/l le unable to use SCD 's Diet: tube feeding Disposition: The pt will go to LTAC tomorrow in AM Problem List - Problems (1) A-fib Code(s): I48.91 - UNSPECIFIED ATRIAL FIBRILLATION Qualifiers: Atrial fibrillation type: unspecified Qualified Code(s): I48.91 - Unspecified atrial fibrillation (2) Acute on chronic diastolic CHF (congestive heart failure) Code(s): I50.33 - ACUTE ON CHRONIC DIASTOLIC (CONGESTIVE) HEART FAILURE (3) Anemia Code(s): D64.9 - ANEMIA, UNSPECIFIED (4) CKD (chronic kidney disease) Code(s): N18.9 - CHRONIC KIDNEY DISEASE, UNSPECIFIED Qualifiers: Chronic kidney disease stage: stage 4 (severe) Qualified Code(s): N18.4 - Chronic kidney disease, stage 4 (severe) (5) Cardiac arrest Code(s): I46.9 - CARDIAC ARREST, CAUSE UNSPECIFIED (6) DVT prophylaxis Code(s): FLU4991 - (7) HTN (hypertension) Code(s): I10 - ESSENTIAL (PRIMARY) HYPERTENSION (8) Hyperkalemia Code(s): E87.5 - HYPERKALEMIA (9) Hyperlipidemia Code(s): E78.5 - HYPERLIPIDEMIA, UNSPECIFIED (10) 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 hypertension Code(s): I27.2 - OTHER SECONDARY PULMONARY HYPERTENSION (11) Sleep apnea Code(s): G47.30 - SLEEP APNEA, UNSPECIFIED Visit type - Emergency Visit Emergency Visit: Yes ED Registration Date: 03/17/17 Care time: The patient presented to the Emergency Department on the above date and was hospitalized for further evaluation of their emergent condition. - New Patient This patient is new to me today: No - Critical Care Critical Care patient: Yes Total Critical Care Time (in minutes): 45 Critical Care Statement: The care of this patient involved high complexity decision making to prevent further life threatening deterioration of the patient 's condition and/or to evalute & treat vital organ system(s) failure or risk of failure.
--- NOTE | 2017-04-10 14:50 | DS ---
Physical Exam: SUBJECTIVE: Patient seen and examined at bedside. No overnight events. Awake and alert. trached and non-verbal. S/P permacath yesterday. Cath site clean/dry/ intact. OBJECTIVE: Vital Signs Period Temp Pulse Resp BP Sys/Krishnan Pulse Ox Last 24 Hr 97.5 F-99 F 64-87 16-27 85-156/41-82 99-100 PHYSICAL EXAM GENERAL:trached, awake and alert. . HEAD: Normal with no signs of trauma. LUNGS: bilateral rales, decreased breath sound HEART: RRR,no M/G/R ABDOMEN: obese, distended. 1+edema EXTREMITIES:3+ pitting edema bilat. SKIN: chronic LE skin changes LABS Laboratory Results - last 24 hr 04/06/17 04/09/17 04/09/17 14:09 11:52 18:36 WBC RBC Hgb Hct MCV MCHC RDW Plt Count MPV Sodium Potassium Chloride Carbon Dioxide Anion Gap BUN Creatinine POC Glucometer 176.88815 [phone] Random Glucose Calcium Phosphorus Blood Type AB POSITIVE Antibody Screen Negative Crossmatch See Detail 04/09/17 04/10/17 04/10/17 22:04 05:30 05:30 WBC 10.1 H RBC 3.03 L Hgb 8.8 L Hct 25.8 L MCV 85.2 MCHC 34.1 RDW 19.8 H Plt Count 178 MPV 8.1 Sodium 140 Potassium 3.7 Chloride 100 Carbon Dioxide 27 Anion Gap 13 BUN 49 H Creatinine 4.0 H POC Glucometer 150.40407 Random Glucose 146 H Calcium 8.0 L Phosphorus 3.7 Blood Type Antibody Screen Crossmatch 04/10/17 04/10/17 05:51 12:16 WBC RBC Hgb Hct MCV MCHC RDW Plt Count MPV Sodium Potassium Chloride Carbon Dioxide Anion Gap BUN Creatinine POC Glucometer 176.27384 198.97198 Random Glucose Calcium Phosphorus Blood Type Antibody Screen Crossmatch HOSPITAL COURSE: 76 y/o M with significant PMHx of CHF, HTN, Afib, and pulmonary HTN admitted from long term s/p cardiac arrest secondary to ventricular fibrillation admitted to ICU. Hypothermia protocol initiated and patient placed on ventilatory support. Pacemaker was interrogated twice during admission by [employer] and no events during admission and evaluated by EP faculty criminal justice.Echo was done to access severe non ischemic CM results demonstrated normal LV systolic function, mod RV dilation, and severe TR. Supratherapuetic INR found and held coumadin and not restarted for bleeding risk. Afib was monitored and managed with Amiodarone which will be continued upon discharge. Patient required continued pressure support secondary to refractory shock. At time of discharge is now on 8mcg/hr of Levophed that will need to be continued to maintain MAP >65%. Patient was also placed on indefinite dialysis secondary to fluid overload and has had a permacath placed for continued treatment. He was treated with antibiotics (vanco/zosyn) for MRSA found in sputum culture and . This has since resolved and no antibiotics upon discharge.Upon discharge patient will require continued ventilatory support and pressure support.Tubes feed initiated via NG tube to be continued upon discharge. Dialysis as needed for fluid overload and CKD. Patient is in improved condition for transport to [facility] facility. Date of Admission:03/17/17 Date of Discharge: 04/10/17 Minutes to complete discharge: 65 <Cleve Bourgeois - Last Filed: 04/10/17 14:56> Physical Exam: SUBJECTIVE: Patient seen and examined OBJECTIVE: Vital Signs Period Temp Pulse Resp BP Sys/Krishnan Pulse Ox Last 24 Hr 97.5 F-98.8 F 64-87 16-28 85-156/41-82 99-100 PHYSICAL EXAM GENERAL: The patient is awake, alert, and fully oriented, in no acute distress. HEAD: Normal with no signs of trauma. EYES: PERRL, extraocular movements intact, sclera anicteric, conjunctiva clear. ENT: Ears normal, nares patent, oropharynx clear without exudates, moist mucous membranes. NECK: Trachea midline, full range of motion, supple. LUNGS: Breath sounds equal, clear to auscultation bilaterally, no wheezes, no crackles, no accessory muscle use. HEART: Regular rate and rhythm, S1, S2 without murmur, rub or gallop. ABDOMEN: Soft, nontender, nondistended, normoactive bowel sounds, no guarding, no rebound, no hepatosplenomegaly, no masses. EXTREMITIES: 2+ pulses, warm, well-perfused, no edema. NEUROLOGICAL: Cranial nerves II through XII grossly intact. Normal speech, gait not observed. PSYCH: Normal mood, normal affect. SKIN: Warm, dry, normal turgor, no rashes or lesions noted. LABS Laboratory Results - last 24 hr 04/06/17 04/09/17 04/09/17 14:09 18:36 22:04 WBC RBC Hgb Hct MCV MCHC RDW Plt Count MPV Sodium Potassium Chloride Carbon Dioxide Anion Gap BUN Creatinine POC Glucometer 180.25554 150.18829 Random Glucose Calcium Phosphorus Blood Type AB POSITIVE Antibody Screen Negative Crossmatch See Detail 04/10/17 04/10/17 04/10/17 05:30 05:30 05:51 WBC 10.1 H RBC 3.03 L Hgb 8.8 L Hct 25.8 L MCV 85.2 MCHC 34.1 RDW 19.8 H Plt Count 178 MPV 8.1 Sodium 140 Potassium 3.7 Chloride 100 Carbon Dioxide 27 Anion Gap 13 BUN 49 H Creatinine 4.0 H POC Glucometer 176.98801 Random Glucose 146 H Calcium 8.0 L Phosphorus 3.7 Blood Type Antibody Screen Crossmatch 04/10/17 12:16 WBC RBC Hgb Hct MCV MCHC RDW Plt Count MPV Sodium Potassium Chloride Carbon Dioxide Anion Gap BUN Creatinine POC Glucometer 198.73541 Random Glucose Calcium Phosphorus Blood Type Antibody Screen Crossmatch HOSPITAL COURSE: Date of Admission:03/17/17 [facility] <Dino Vora - Last Filed: 04/10/17 18:45> Discharge Summary Reason For Visit: CARDIAC ARREST Current Active Problems Acute on chronic diastolic CHF (congestive heart failure) (Acute) Acute on chronic renal failure (Acute) Anasarca (Acute) Anemia (Acute) Cardiac arrest (Acute) DVT prophylaxis (Acute) HTN (hypertension) (Acute) Hyperkalemia (Acute) Pneumonia (Acute) Positive culture findings in sputum (Acute) Supratherapeutic INR (Acute) A-fib (Chronic) CKD (chronic kidney disease) (Chronic) Cardiomyopathy (Chronic) Hyperlipidemia (Chronic) 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 hypertension (Chronic) Sleep apnea (Chronic) - Home Medications Comprehensive Discharge Medication List: Ambulatory Orders Allopurinol 300 mg PO DAILY 03/17/17 Ferrous Sulfate 650 mg PO BID 03/17/17 Latanoprost 0.005% Eye Drops [Xalatan 0.005% Eye Drops -] 1 drop OU HS 03/17/17 Nystatin Cream [Mycostatin Cream -] 1 applic TP BID 03/17/17 Simvastatin [Zocor -] 80 mg PO HS 03/17/17 Sod Lactate/Amm Lact/Pot Lact [Amlactin Ultra Body Cream] 1 applic TP BID Triamcinolone 0.1% Cream [Aristocort 0.1% Cream -] 1 applic TP BID 03/17/17 Amiodarone HCl [Cordarone -] 200 mg PO DAILY tablet 04/10/17 Atorvastatin Ca [Lipitor] 80 mg NGT HS tablet 04/10/17 Bacitracin - [Bacitracin Topical Ointment -] 1 applic TP DAILY tube 04/10/17 Furosemide Injection [Lasix Injection -] 80 mg IVPUSH BID@0600,1400 vial Norepinephrine Bitartrate [Levophed Bitartrate -] 8,000 mcg IV TITR ml <Cleve Bourgeois - Last Filed: 04/10/17 14:56> Current Active Problems Acute on chronic diastolic CHF (congestive heart failure) (Acute) Acute on chronic renal failure (Acute) Anasarca (Acute) Anemia (Acute) Cardiac arrest (Acute) DVT prophylaxis (Acute) HTN (hypertension) (Acute) Hyperkalemia (Acute) Pneumonia (Acute) Positive culture findings in sputum (Acute) Supratherapeutic INR (Acute) A-fib (Chronic) CKD (chronic kidney disease) (Chronic) Cardiomyopathy (Chronic) Hyperlipidemia (Chronic) 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 hypertension (Chronic) Sleep apnea (Chronic) - Home Medications Comprehensive Discharge Medication List: Ambulatory Orders Allopurinol 300 mg PO DAILY 03/17/17 Ferrous Sulfate 650 mg PO BID 03/17/17 Latanoprost 0.005% Eye Drops [Xalatan 0.005% Eye Drops -] 1 drop OU HS 03/17/17 Nystatin Cream [Mycostatin Cream -] 1 applic TP BID 03/17/17 Simvastatin [Zocor -] 80 mg PO HS 03/17/17 Sod Lactate/Amm Lact/Pot Lact [Amlactin Ultra Body Cream] 1 applic TP BID Triamcinolone 0.1% Cream [Aristocort 0.1% Cream -] 1 applic TP BID 03/17/17 Amiodarone HCl [Cordarone -] 200 mg PO DAILY tablet 04/10/17 Atorvastatin Ca [Lipitor] 80 mg NGT HS tablet 04/10/17 Bacitracin - [Bacitracin Topical Ointment -] 1 applic TP DAILY tube 04/10/17 Furosemide Injection [Lasix Injection -] 80 mg IVPUSH BID@0600,1400 vial Norepinephrine Bitartrate [Levophed Bitartrate -] 8,000 mcg IV TITR ml <Dino Vora - Last Filed: 04/10/17 18:45> Condition: Improved - Instructions Diet, Activity, Other Instructions: You are being transfered to [facility] for continued care. Continue tube feeds with Glucerna 1.5 @ 40ml/hr with no added free water. Increase physical activity as tolerated. Referrals: Vivienne Mcmahan MD [Primary Care Provider] - Disposition: TRANSFER ACUTE CARE/OTHER HOSP Problem List - Problems (1) Cardiac arrest (2) Positive culture findings in sputum (3) Acute on chronic diastolic CHF (congestive heart failure) (4) CKD (chronic kidney disease) (5) A-fib (6) DVT prophylaxis <Cleve Bourgeois - Last Filed: 04/10/17 14:56> This patient is new to me today: No Emergency Visit: Yes ED Registration Date: 03/17/17 Care time: The patient presented to the Emergency Department on the above date and was hospitalized for further evaluation of their emergent condition. Critical Care patient: Yes Total Critical Care Time (in minutes): 65 Critical Care Statement: The care of this patient involved high complexity decision making to prevent further life threatening deterioration of the patient 's condition and/or to evalute & treat vital organ system(s) failure or risk of failure. - Discharge Referral Referred to [facility] No <Cleve Bourgeois - Last Filed: 04/10/17 14:56>
[2017-04-10] MEDS ORDERED: NOREPINEPHRINE BITARTRATE 4 MG/4 ML ML IV ONE (15:54)
[2017-04-10] MEDS: WATER IV SCH ×2 (16:00→22:41)
[2017-04-10] MEDS: DEXTROSE 5% IV SCH ×2 (16:00→22:41)
[2017-04-10] MEDS: NOREPINEPHRINE BITARTRATE IV SCH ×2 (16:00→22:41)
--- NOTE | 2017-04-10 16:16 | PN ---
Progress Note, Physician Chief Complaint: Pt alert; undergoing hemodialysis. History of Present Illness: The patient is a 76 year old black male, with a significant past medical history of diastolic CHF with severe systolic RV dysfunction, HTN, HLD, Atrial Fibrillation, Morbid obesity, Prostate CA, Sleep apnea on O2, Glaucoma BIBA from [facility] s/p Cardiac arrest. As per EMS, the patient was initially seated in PT doing leg exercises when he became unresponsive. Patient was brought back into his room in the [place] and chest compressions were initiated by nursing staff. Down time was between 4-5 minutes. patient was shocked once and ROSC was noted. As per EMS, patient was given 150 mg of Amiodarone in field and was brought into the ED for further evaluation. Upon arrival to the ED, patients (health care proxy) gave consent to intubate over the telephone. 2:48 PM- 20 mg of Etomidate given through IV 2:49 PM- 150 mg of Succinylcholine given through IV 2:50 PM- Patient intubated with 7.5 ET tube, positioned 24 cm at the lip - Current Medication List Current Medications: Active Medications Amiodarone HCl (Cordarone -) 200 mg PO DAILY [facility] Last Admin: 04/10/17 11:33 Dose: 200 mg Atorvastatin Calcium (Lipitor -) 80 mg NGT [facility] Last Admin: 04/09/17 21:34 Dose: 80 mg Bacitracin (Bacitracin -) 1 applic TP DAILY [facility] Last Admin: 04/10/17 12:27 Dose: 1 applic Chlorhexidine Gluconate (Hibiclens For Decolonization -) 1 applic TP HS [facility] Last Admin: 04/09/17 21:35 Dose: 1 applic Chlorhexidine Gluconate (Peridex -) 15 ml MM BID [facility] Last Admin: 04/10/17 11:33 Dose: 15 ml Furosemide (Lasix Injection -) 80 mg IVPUSH BID@0600,1400 [facility] Last Admin: 04/10/17 15:00 Dose: 80 mg Norepinephrine Bitartrate 8, (000 mcg/ Dextrose) 258 mls @ 15.48 mls/hr IV TITR SARAH; 8 MCG/MIN PRN Reason: Protocol Last Admin: 04/10/17 16:00 Dose: 18.6 mls/hr Dopamine HCl 800,000 mcg/ (Sodium Chloride) 250 mls @ 22.98 mls/hr IV TITR SARAH ; 8 MCG/KG/MIN PRN Reason: Protocol Last Admin: 04/10/17 11:33 Dose: Not Given Propofol (Diprivan -) 100 mls @ 4.707 mls/hr IVPUSH TITR SARAH; 5 MCG/KG/MIN PRN Reason: Protocol Last Admin: 04/09/17 18:45 Dose: Not Given Insulin Aspart (Novolog Vial Sliding Scale -) 1 vial SQ ACHS [facility] PRN Reason: Protocol Last Admin: 04/10/17 12:25 Dose: 2 units Ranitidine HCl (Zantac Oral Solution -) 150 mg NGT DAILY [facility] Last Admin: 04/10/17 11:33 Dose: 150 mg Scopolamine HBr (Transderm-Scop -) 1 patch TD Q3D@2200 [facility] Last Admin: 04/09/17 21:36 Dose: 1 patch - Objective Vital Signs: Vital Signs Temperature 98.4 F 04/10/17 14:00 Pulse Rate 81 04/10/17 16:00 Respiratory Rate 20 04/10/17 14:00 Blood Pressure 89/50 04/10/17 16:00 O2 Sat by Pulse Oximetry (%) 99 04/10/17 10:30 Constitutional: Yes: Calm Eyes: Yes: WNL HENT: Yes: WNL Neck: Yes: Decreased ROM Cardiovascular: Yes: Pulse Irregular Respiratory: Yes: Diminished Gastrointestinal: Yes: Abdomen, Obese ...Rectal Exam: Yes: Deferred Genitourinary: Yes: Anuria Musculoskeletal: Yes: Joint Swelling, Muscle Weakness Extremities: Yes: Cool Edema: Yes Edema: LLE: 2+, RLE: 2+ Peripheral Pulses WNL: No Peripheral Pulses: Left Doralis Pedis: 1+, Right Dorsalis Pedis: 1+ Integumentary: Yes: Venous Stasis Changes Wound/Incision: Yes: Other (permacath site dry) Neurological: Yes: Alert, Weakness Psychiatric: Yes: Other Labs: CBC, BMP 04/10/17 05:30 04/10/17 05:30 INR, PTT INR 1.37 (0.82-1.09) H 04/07/17 06:25 Abnormal Lab Results 04/06/17 04/10/17 04/10/17 14:09 05:30 05:30 WBC 10.1 H RBC 3.03 L Hgb 8.8 L Hct 25.8 L RDW 19.8 H BUN 49 H Creatinine 4.0 H Random Glucose 146 H Calcium 8.0 L Crossmatch See Detail - ....Imaging Chest X-ray: Image Reviewed (no significant change in Lt hemithorax opacification) Other: Image Reviewed (telemetry:) Problem List - Problems (1) Cardiac arrest Assessment/Plan: Amiodarone now 200 mg daily. Remains on norepinephrine; attempting to titrate off. As discussed with Dr. Gomez and CCU team, agree with repeat ECHO, given pt' s protracted course and refractory hypotension, with attention to LVEF ( preserved on initial ECHO weeks ago; hx normal LVEF and severe RV dysfunction for years). Undergoing hemodialysis; s/p permacath. Code(s): I46.9 - CARDIAC ARREST, CAUSE UNSPECIFIED (2) Acute on chronic diastolic CHF (congestive heart failure) Assessment/Plan: see under "cardiac arrest'. Code(s): I50.33 - ACUTE ON CHRONIC DIASTOLIC (CONGESTIVE) HEART FAILURE (3) Hyperlipidemia Assessment/Plan: high-dose statin. Code(s): E78.5 - HYPERLIPIDEMIA, UNSPECIFIED (4) Sleep apnea Code(s): G47.30 - SLEEP APNEA, UNSPECIFIED (5) HTN (hypertension) Code(s): I10 - ESSENTIAL (PRIMARY) HYPERTENSION (6) 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 hypertension Assessment/Plan: Hx COPD; severe RV failure. White-out of left lung; mild improvement. F/u Is and Os. F/u c/s. S/p tracheostomy; remains ventrilator-dependent. On amiodarone (reduced to 200 mg daily). Code(s): I27.2 - OTHER SECONDARY PULMONARY HYPERTENSION (7) Hyperkalemia Assessment/Plan: f/u electrolytes closely, particularly while on amiodarone (K, Mg, and PO4 initially elevated); hemodialysis/UF per room service attendant. Code(s): E87.5 - HYPERKALEMIA (8) Anemia Code(s): D64.9 - ANEMIA, UNSPECIFIED (9) Acute on chronic renal failure Code(s): N17.9 - ACUTE KIDNEY FAILURE, UNSPECIFIED N18.9 - CHRONIC KIDNEY DISEASE, UNSPECIFIED
[2017-04-10] MEDS: ATORVASTATIN CA 80 MG TABLET (FP) NGT SCH (22:00)
[2017-04-10] MEDS: CHLORHEXIDINE GLUCONATE 4% CLEANSER FOR DECOLONIZATION TP SCH (22:00)
[2017-04-10] MEDS: PROPOFOL 100 ML IVPUSH SCH (22:40)
[2017-04-11] MEDS ORDERED: NOREPINEPHRINE BITARTRATE 4 MG/4 ML ML IV ONE ×2 (05:58→19:19)
[2017-04-11] MEDS: FUROSEMIDE 40 MG/4 ML INJECTABLE VIAL IVPUSH SCH ×2 (06:04→13:28)
[2017-04-11] MEDS: BANATROL PLUS POWDER PACKET PO SCH ×3 (06:04→21:02)
[2017-04-11] MEDS: INSULIN SLIDING SCALE (NOVOLOG) 1 VIAL SQ SCH ×4 (06:05→21:01)
[2017-04-11] MEDS: NOREPINEPHRINE BITARTRATE IV SCH ×2 (06:06→20:49)
[2017-04-11] MEDS: DEXTROSE 5% IV SCH ×2 (06:06→20:49)
[2017-04-11] MEDS: WATER IV SCH ×2 (06:06→20:49)
[2017-04-11 06:38] LABS: MCH 28.5 pg (25.7-33.7); MCHC 32.9 g/dl (32.0-35.9); MEAN CELL VOLUME 86.8 fl (80-96); MEAN PLT VOLUME 8.4 fl (7.5-11.1); PLATELET COUNT 168 K/MM3 (134-434)
[2017-04-11 07:02] LABS: ALBUMIN 2.2 g/dl (3.4-5.0)
[2017-04-11 07:04] LABS: CREATININE 3.2 mg/dL (0.7-1.3); TOT PROT 5.6 g/dl (6.4-8.2)
[2017-04-11 07:25] LABS: COCKROFT - GAULT 41.3
--- NOTE | 2017-04-11 09:13 | PN ---
Progress Note (short form) - Note Progress Note: Patient seen and examined in the ICU. Remains awake and interactive. Remains on 10 mcq NE for hemodynamic support. HD yesterday. Intake & Output 04/08/17 04/09/17 04/10/17 04/11/17 23:59 23:59 23:59 23:59 Intake Total 1048 1140.1 1832.8 758 Output Total 270 310 250 300 Balance 778 830.1 1582.8 458 Weight 341 lb 11.2 oz 337 lb 337 lb 11.2 oz 338 lb 6.4 oz Last Vital Signs Temp Pulse Resp BP Pulse Ox 99.2 F 82 22 99/59 100 04/11/17 06:00 04/11/17 08:00 04/11/17 08:00 04/11/17 08:00 04/10/17 20:00 Active Medications Amiodarone HCl (Cordarone -) 200 mg PO DAILY [facility] Last Admin: 04/10/17 11:33 Dose: 200 mg Atorvastatin Calcium (Lipitor -) 80 mg NGT HS [facility] Last Admin: 04/10/17 22:00 Dose: 80 mg Bacitracin (Bacitracin -) 1 applic TP DAILY [facility] Last Admin: 04/10/17 12:27 Dose: 1 applic Chlorhexidine Gluconate (Hibiclens For Decolonization -) 1 applic TP HS [facility] Last Admin: 04/10/17 22:00 Dose: 1 applic Chlorhexidine Gluconate (Peridex -) 15 ml MM BID [facility] Last Admin: 04/10/17 22:00 Dose: 15 ml Furosemide (Lasix Injection -) 80 mg IVPUSH BID@0600,1400 [facility] Last Admin: 04/11/17 06:04 Dose: 80 mg Norepinephrine Bitartrate 8, (000 mcg/ Dextrose) 258 mls @ 15.48 mls/hr IV TITR SARAH; 8 MCG/MIN PRN Reason: Protocol Last Admin: 04/11/17 06:06 Dose: 19.35 mls/hr Insulin Aspart (Novolog Vial Sliding Scale -) 1 vial SQ ACHS [facility] PRN Reason: Protocol Last Admin: 04/11/17 06:05 Dose: 2 units Ranitidine HCl (Zantac Oral Solution -) 150 mg NGT DAILY [facility] Last Admin: 04/10/17 11:33 Dose: 150 mg Scopolamine HBr (Transderm-Scop -) 1 patch TD Q3D@2200 [facility] Last Admin: 04/09/17 21:36 Dose: 1 patch Gen: Awake and interactive Heart: RRR, +systolic murmur Lung: scattered rhonchi Abd: soft, obese, edematous Ext: + edema Laboratory Results - last 24 hr 04/10/17 04/10/17 04/10/17 05:51 12:16 17:15 WBC RBC Hgb Hct MCV MCHC RDW Plt Count MPV Sodium Potassium Chloride Carbon Dioxide Anion Gap BUN Creatinine Creat Clearance w eGFR POC Glucometer 176.28261 198.89927 202.88649 Random Glucose Calcium Total Bilirubin AST ALT Alkaline Phosphatase Total Protein Albumin 04/10/17 04/11/17 04/11/17 23:21 05:40 05:40 WBC 11.0 H RBC 2.95 L Hgb 8.4 L Hct 25.6 L MCV 86.8 MCHC 32.9 RDW 21.0 H Plt Count 168 MPV 8.4 Sodium 141 Potassium 3.5 Chloride 101 Carbon Dioxide 29 Anion Gap 11 BUN 34 H D Creatinine 3.2 H Creat Clearance w eGFR 18.88 POC Glucometer [phone] Random Glucose 163 H Calcium 8.0 L Total Bilirubin 1.0 AST 12 L D ALT 8 L D Alkaline Phosphatase 68 Total Protein 5.6 L Albumin 2.2 L ASSESSMENT AND PLAN: S/P Vfib Cardiac Arrest Acute on Chronic Hypoxic Respiratory Failure S/P Tracheostomy Acute on Chronic Diastolic Heart Failure Severe Pulmonary HTN S/P BiV PPM CAD +Troponins Atrial Fibrillation HTN CKD Hyperlipidemia DM COPD Morbid Obesity Obstructive Sleep Apnea Anemia - Monitor off ABX - Amiodarone - Normal transfusion thresholds - monitor H/H - Off Hydrocortisone - titrate levophed - Taper NE - taper FiO2 to keep SpO2 >90% - spontaneous breathing trials as tolerated - enteral feeds - DVT/GI prophylaxis - For LTAC transfer Dr Gomez critical care time spent in reviewing chart, evaluating patient and formulating plan 40 min
[2017-04-11] MEDS: CHLORHEXIDINE GLUCONATE 0.12% 15ML CUP MM SCH ×2 (09:19→21:01)
[2017-04-11] MEDS: AMIODARONE HCL 200 MG TABLET (FP) PO SCH (09:19)
[2017-04-11] MEDS: RANITIDINE HCL 150 MG/10 ML UNIT-DOSE CUP NGT SCH (09:19)
[2017-04-11] MEDS: BACITRACIN 15 GM TUBE TOPICAL OINTMENT TP SCH (09:19)
--- NOTE | 2017-04-11 09:52 | PN ---
Progress Note, Physician History of Present Illness: The patient is a 76 year old black male, with a significant past medical history of diastolic CHF (severely reduced RVEF of uncertain etiology; severely dilated RV on 02/2017 ECHO, per pt's curriculum development coordinator at [facility]), (non- obstructive CAD by 2008 coronary angiogram), [employer] "biventricular pacemaker , COPD, HTN, HLD, Atrial Fibrillation, renal insufficiency, Morbid obesity, Prostate CA, Sleep apnea on O2, generalzied weakness (wheelchair-bound), Glaucoma BIBA from [facility] s/p Cardiac arrest. As per EMS, the patient was initially seated in PT doing leg exercises when he became unresponsive. Patient was brought back into his room in the [place] and chest compressions were initiated by nursing staff. Down time was between 4-5 minutes. patient was shocked once and ROSC was noted. As per EMS, patient was given 150 mg of Amiodarone in the field and was brought into the ED for further evaluation. Upon arrival to the ED, patients (health care proxy) gave consent to intubate over the telephone. 2:48 PM- 20 mg of Etomidate given through IV 2:49 PM- 150 mg of Succinylcholine given through IV 2:50 PM- Patient intubated with 7.5 ET tube, positioned 24 cm at the lip Pt's says pt is followed closely by [facility] and cardiac groups. I spoke by telephone with pt's curriculum development coordinator, who provided much of the above history. - Current Medication List Current Medications: Active Medications Amiodarone HCl (Cordarone -) 200 mg PO DAILY [facility] Last Admin: 04/11/17 09:19 Dose: 200 mg Atorvastatin Calcium (Lipitor -) 80 mg NGT HS [facility] Last Admin: 04/10/17 22:00 Dose: 80 mg Bacitracin (Bacitracin -) 1 applic TP DAILY [facility] Last Admin: 04/11/17 09:19 Dose: 1 applic Chlorhexidine Gluconate (Hibiclens For Decolonization -) 1 applic TP HS [facility] Last Admin: 04/10/17 22:00 Dose: 1 applic Chlorhexidine Gluconate (Peridex -) 15 ml MM BID [facility] Last Admin: 04/11/17 09:19 Dose: 15 ml Furosemide (Lasix Injection -) 80 mg IVPUSH BID@0600,1400 [facility] Last Admin: 04/11/17 06:04 Dose: 80 mg Norepinephrine Bitartrate 8, (000 mcg/ Dextrose) 258 mls @ 15.48 mls/hr IV TITR SARAH; 8 MCG/MIN PRN Reason: Protocol Last Admin: 04/11/17 06:06 Dose: 19.35 mls/hr Insulin Aspart (Novolog Vial Sliding Scale -) 1 vial SQ ACHS [facility] PRN Reason: Protocol Last Admin: 04/11/17 06:05 Dose: 2 units Ranitidine HCl (Zantac Oral Solution -) 150 mg NGT DAILY [facility] Last Admin: 04/11/17 09:19 Dose: 150 mg Scopolamine HBr (Transderm-Scop -) 1 patch TD Q3D@2200 [facility] Last Admin: 04/09/17 21:36 Dose: 1 patch - Objective Vital Signs: Vital Signs Temperature 99.2 F 04/11/17 06:00 Pulse Rate 82 04/11/17 08:00 Respiratory Rate 31 H 04/11/17 09:20 Blood Pressure 99/59 04/11/17 08:00 O2 Sat by Pulse Oximetry (%) 100 04/11/17 09:00 Eyes: Yes: WNL, Conjunctiva Clear, EOM Intact HENT: Yes: WNL, Atraumatic, Normocephalic Neck: Yes: WNL, Supple, Trachea Midline Cardiovascular: Yes: WNL, Regular Rate and Rhythm Respiratory: Yes: Mechanically Ventilated Gastrointestinal: Yes: WNL, Normal Bowel Sounds Genitourinary: Yes: WNL Musculoskeletal: Yes: WNL Extremities: Yes: WNL Edema: Yes Integumentary: Yes: WNL Neurological: Yes: WNL, Alert, Oriented ...Motor Strength: WNL Psychiatric: Yes: WNL Labs: CBC, BMP 04/11/17 05:40 04/11/17 05:40 INR, PTT INR 1.37 (0.82-1.09) H 04/07/17 06:25 Assessment/Plan - Problems (1) Cardiac arrest Assessment/Plan: Amiodarone now 200 mg daily. Remains on norepinephrine; attempting to titrate off. As discussed with Dr. Gomez and CCU team, agree with repeat ECHO, given pt' s protracted course and refractory hypotension, with attention to LVEF ( preserved on initial ECHO weeks ago; hx normal LVEF and severe RV dysfunction for years). Undergoing hemodialysis; s/p permacath. Code(s): I46.9 - CARDIAC ARREST, CAUSE UNSPECIFIED (2) Acute on chronic diastolic CHF (congestive heart failure) Assessment/Plan: see under "cardiac arrest'. Code(s): I50.33 - ACUTE ON CHRONIC DIASTOLIC (CONGESTIVE) HEART FAILURE (3) Hyperlipidemia Assessment/Plan: high-dose statin. Code(s): E78.5 - HYPERLIPIDEMIA, UNSPECIFIED (4) Sleep apnea Code(s): G47.30 - SLEEP APNEA, UNSPECIFIED (5) HTN (hypertension) Code(s): I10 - ESSENTIAL (PRIMARY) HYPERTENSION (6) 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 hypertension Assessment/Plan: Hx COPD; severe RV failure. White-out of left lung; mild improvement. F/u Is and Os. F/u c/s. S/p tracheostomy; remains ventrilator-dependent. On amiodarone (reduced to 200 mg daily). Code(s): I27.2 - OTHER SECONDARY PULMONARY HYPERTENSION (7) Hyperkalemia Assessment/Plan: f/u electrolytes closely, particularly while on amiodarone (K, Mg, and PO4 initially elevated); hemodialysis/UF per carpenter refrigerator. Code(s): E87.5 - HYPERKALEMIA (8) Anemia Code(s): D64.9 - ANEMIA, UNSPECIFIED (9) Acute on chronic renal failure Code(s): N17.9 - ACUTE KIDNEY FAILURE, UNSPECIFIED N18.9 - CHRONIC KIDNEY DISEASE, UNSPECIFIED
[2017-04-11 10:36] LABS: ANISOCYTOSIS 2+; HYPOCHROMIA 1+; PLATELET COMMENT2 NO CLOTTING DETECTED; PLATELET ESTIMATE ADEQUATE (NORMAL); POLYCHROMASIA 1+
--- NOTE | 2017-04-11 10:40 | PN ---
Progress Note (short form) - Note Progress Note: Renal Follow up for SUJATA/Fluid overload Pt seen and examined in the ICU awake and alert on Vent via Trach on Levophed 10mcg oliguric urine output s/p dialysis yesterday with 4kg UF Vital Signs Temperature 99.2 F 04/11/17 06:00 Pulse Rate 82 04/11/17 08:00 Respiratory Rate 31 H 04/11/17 09:20 Blood Pressure 99/59 04/11/17 08:00 O2 Sat by Pulse Oximetry (%) 100 04/11/17 09:00 Intake & Output 04/08/17 04/09/17 04/10/17 04/11/17 23:59 23:59 23:59 23:59 Intake Total 1048 1140.1 1832.8 758 Output Total 270 310 250 300 Balance 778 830.1 1582.8 458 Weight 341 lb 11.2 oz 337 lb 337 lb 11.2 oz 338 lb 6.4 oz Gen: NAD CVS: RRR, No M/R Lungs: Dec BS, Course BS Abd: soft, Obese, ND Ext: 2+ edema in LE, no cyanosis, warm ext : Ridley in place CBC, BMP 04/11/17 05:40 04/11/17 05:40 Laboratory Tests 04/11/17 05:40 Calcium 8.0 L Albumin 2.2 L Current Medications Amiodarone HCl (Cordarone -) 200 mg PO DAILY [facility] Last Admin: 04/11/17 09:19 Dose: 200 mg Atorvastatin Calcium (Lipitor -) 80 mg NGT HS [facility] Last Admin: 04/10/17 22:00 Dose: 80 mg Bacitracin (Bacitracin -) 1 applic TP DAILY [facility] Last Admin: 04/11/17 09:19 Dose: 1 applic Chlorhexidine Gluconate (Hibiclens For Decolonization -) 1 applic TP HS [facility] Last Admin: 04/10/17 22:00 Dose: 1 applic Chlorhexidine Gluconate (Peridex -) 15 ml MM BID [facility] Last Admin: 04/11/17 09:19 Dose: 15 ml Furosemide (Lasix Injection -) 80 mg IVPUSH BID@0600,1400 [facility] Last Admin: 04/11/17 06:04 Dose: 80 mg Norepinephrine Bitartrate 8, (000 mcg/ Dextrose) 258 mls @ 15.48 mls/hr IV TITR SARAH; 8 MCG/MIN PRN Reason: Protocol Last Admin: 04/11/17 06:06 Dose: 19.35 mls/hr Insulin Aspart (Novolog Vial Sliding Scale -) 1 vial SQ ACHS [facility] PRN Reason: Protocol Last Admin: 04/11/17 06:05 Dose: 2 units Ranitidine HCl (Zantac Oral Solution -) 150 mg NGT DAILY [facility] Last Admin: 04/11/17 09:19 Dose: 150 mg Scopolamine HBr (Transderm-Scop -) 1 patch TD Q3D@2200 [facility] Last Admin: 04/09/17 21:36 Dose: 1 patch A/P 76 year old Gentleman with PMhx of CKD, CHF, Hypertension, Afib, Obesity, Prostate Ca who presented s/p cardiac arrest with SUJATA and Volume overload #Acute Renal Failure in setting of pre-existing CKD requiring dialysis s/p dialysis yesterday, no acute indication for dialysis today Dose all meds for intermittent HD on MWF schedule attempt to minimize fluid infusions because of volume overload Keep MAP > 65 next planned dialysis is on Thursday #Anemia Will continue high dose epogen given history of CKD transfuse as per ICU protocol #Shock/Resp Failure Management as per ICU pending transfer to acute care facility Thank you Garry Drew DO
--- NOTE | 2017-04-11 12:34 | PN ---
Progress Note, Physician Chief Complaint: S/P PERMACATH PLACEMENT History of Present Illness: POST OP DAY ONE, ANESTHESIOLOGY CHECK. PATIENT RECEIVED MAC ANESTHESIA - Current Medication List Current Medications: Active Medications Amiodarone HCl (Cordarone -) 200 mg PO DAILY [facility] Last Admin: 04/11/17 09:19 Dose: 200 mg Atorvastatin Calcium (Lipitor -) 80 mg NGT HS [facility] Last Admin: 04/10/17 22:00 Dose: 80 mg Bacitracin (Bacitracin -) 1 applic TP DAILY [facility] Last Admin: 04/11/17 09:19 Dose: 1 applic Chlorhexidine Gluconate (Hibiclens For Decolonization -) 1 applic TP HS [facility] Last Admin: 04/10/17 22:00 Dose: 1 applic Chlorhexidine Gluconate (Peridex -) 15 ml MM BID [facility] Last Admin: 04/11/17 09:19 Dose: 15 ml Furosemide (Lasix Injection -) 80 mg IVPUSH BID@0600,1400 [facility] Last Admin: 04/11/17 06:04 Dose: 80 mg Norepinephrine Bitartrate 8, (000 mcg/ Dextrose) 258 mls @ 15.48 mls/hr IV TITR SARAH; 8 MCG/MIN PRN Reason: Protocol Last Admin: 04/11/17 06:06 Dose: 19.35 mls/hr Insulin Aspart (Novolog Vial Sliding Scale -) 1 vial SQ ACHS [facility] PRN Reason: Protocol Last Admin: 04/11/17 11:54 Dose: 2 units Ranitidine HCl (Zantac Oral Solution -) 150 mg NGT DAILY [facility] Last Admin: 04/11/17 09:19 Dose: 150 mg Scopolamine HBr (Transderm-Scop -) 1 patch TD Q3D@2200 [facility] Last Admin: 04/09/17 21:36 Dose: 1 patch - Objective Vital Signs: Vital Signs Temperature 99 F 04/11/17 10:00 Pulse Rate 72 04/11/17 12:00 Respiratory Rate 18 04/11/17 12:00 Blood Pressure 95/54 04/11/17 12:00 O2 Sat by Pulse Oximetry (%) 100 04/11/17 12:00 Constitutional: Yes: Other (sedated) Cardiovascular: Yes: Tachycardia Respiratory: Yes: Mechanically Ventilated Gastrointestinal: Yes: Distention Labs: CBC, BMP 04/11/17 05:40 04/11/17 05:40 INR, PTT INR 1.37 (0.82-1.09) H 04/07/17 06:25 Assessment/Plan No apparent adverse effect of anesthetic. dept of anesthesia will sign off at this time
--- NOTE | 2017-04-11 17:20 | PN ---
Physical Exam: SUBJECTIVE: Patient seen and examined Patient is better with no acute , still in ICU. on pressor levophed. OBJECTIVE: Vital Signs Temperature 98.9 F 04/11/17 14:00 Pulse Rate 80 04/11/17 16:00 Respiratory Rate 28 H 04/11/17 16:34 Blood Pressure 91/49 04/11/17 16:00 O2 Sat by Pulse Oximetry (%) 100 04/11/17 12:00 GENERAL: The patient is awake, alert, no acute distress, trached. HEAD: Normal with no signs of trauma. EYES: PERRL, extraocular movements intact, sclera anicteric, conjunctiva clear. ENT: Ears normal, oropharynx clear without exudates, moist mucous membranes. NECK: Trachea midline, full range of motion, supple. LUNGS: decreased Breath sounds BL , no wheezes, no crackles, no accessory muscle use. HEART: Regular rate and rhythm, S1, S2 positive, MONICA 3/6 , no rub or gallop. ABDOMEN: Soft, nontender, distended, normoactive bowel sounds, no guarding, no rebound. EXTREMITIES: 2+ pulses, warm, well-perfused, 3 plus edema. NEUROLOGICAL: Cranial nerves II through XII grossly intact. Normal speech, gait not observed. PSYCH: Normal mood, normal affect. SKIN: Warm, dry, normal turgor, no rashes or lesions noted Rectal: positive for rectal tube CBCD WBC 11.0 K/mm3 (4.0-10.0) H 04/11/17 05:40 RBC 2.95 M/mm3 (4.00-5.60) L 04/11/17 05:40 Hgb 8.4 GM/dL (11.7-16.9) L 04/11/17 05:40 Hct 25.6 % (35.4-49) L 04/11/17 05:40 MCV 86.8 fl (80-96) 04/11/17 05:40 MCHC 32.9 g/dl (32.0-35.9) 04/11/17 05:40 RDW 21.0 % (11.9-15.9) H 04/11/17 05:40 Plt Count 168 K/MM3 (134-434) 04/11/17 05:40 MPV 8.4 fl (7.5-11.1) 04/11/17 05:40 CMP Sodium 141 mmol/L (136-145) 04/11/17 05:40 Potassium 3.5 mmol/L (3.5-5.1) 04/11/17 05:40 Chloride 101 mmol/L (98-107) 04/11/17 05:40 Carbon Dioxide 29 mmol/L (21-32) 04/11/17 05:40 Anion Gap 11 (8-16) 04/11/17 05:40 BUN 34 mg/dL (7-18) H D 04/11/17 05:40 Creatinine 3.2 mg/dL (0.7-1.3) H 04/11/17 05:40 Creat Clearance w eGFR 18.88 (>60) 04/11/17 05:40 Random Glucose 163 mg/dL (74-106) H 04/11/17 05:40 Calcium 8.0 mg/dL (8.5-10.1) L 04/11/17 05:40 Total Bilirubin 1.0 mg/dL (0.2-1.0) 04/11/17 05:40 AST 12 U/L (15-37) L D 04/11/17 05:40 ALT 8 U/L (12-78) L D 04/11/17 05:40 Alkaline Phosphatase 68 U/L (45-117) 04/11/17 05:40 Total Protein 5.6 g/dl (6.4-8.2) L 04/11/17 05:40 Albumin 2.2 g/dl (3.4-5.0) L 04/11/17 05:40 CARDIAC ENZYMES Creatine Kinase 146 IU/L (39-308) 03/18/17 10:23 Troponin I 0.16 ng/ml (0.00-0.05) H D 03/18/17 10:23 Home Medications Medication Instructions Recorded Allopurinol 300 mg PO DAILY 03/17/17 Ferrous Sulfate 650 mg PO BID 03/17/17 Latanoprost 0.005% Eye Drops 1 drop OU HS 03/17/17 [Xalatan 0.005% Eye Drops -] Nystatin Cream [Mycostatin Cream -] 1 applic TP BID 03/17/17 Simvastatin [Zocor -] 80 mg PO HS 03/17/17 Sod Lactate/Amm Lact/Pot Lact 1 applic TP BID 03/17/17 [Amlactin Ultra Body Cream] Triamcinolone 0.1% Cream 1 applic TP BID 03/17/17 [Aristocort 0.1% Cream -] Amiodarone HCl [Cordarone -] 200 mg PO DAILY tablet 04/10/17 Atorvastatin Ca [Lipitor] 80 mg NGT HS tablet 04/10/17 Bacitracin - [Bacitracin Topical 1 applic TP DAILY tube 04/10/17 Ointment -] Furosemide Injection [Lasix 80 mg IVPUSH BID@0600,1400 vial 04/10/17 Injection -] Norepinephrine Bitartrate 8,000 mcg IV TITR ml 04/10/17 [Levophed Bitartrate -] Active Medications Generic Name Dose Route Start Last Admin Trade Name Freq PRN Reason Stop Dose Admin Amiodarone HCl 200 mg 04/08/17 10:43 04/11/17 09:19 Cordarone - PO 200 mg DAILY SARAH Administration Atorvastatin Calcium 80 mg 03/18/17 09:45 04/10/17 22:00 Lipitor - NGT 80 mg HS SARAH Administration Bacitracin 1 applic 04/06/17 18:45 04/11/17 09:19 Bacitracin - TP 1 applic DAILY SARAH Administration Chlorhexidine Gluconate 1 applic 03/17/17 22:00 04/10/17 22:00 Hibiclens For Decolonization - TP 1 applic HS SARAH Administration Chlorhexidine Gluconate 15 ml 03/18/17 22:15 04/11/17 09:19 Peridex - MM 15 ml BID SARAH Administration Furosemide 80 mg 03/30/17 14:00 04/11/17 13:28 Lasix Injection - IVPUSH 80 mg BID@0600,1400 SARAH Administration Norepinephrine Bitartrate 8, 258 mls @ 15.48 mls/hr 03/30/17 08:15 04/11/17 06: 06 000 mcg/ Dextrose IV 19.35 mls/hr TITR SARAH Administration Protocol 8 MCG/MIN Insulin Aspart 1 vial 03/24/17 07:00 04/11/17 17:10 Novolog Vial Sliding Scale - SQ 2 units ACHS SARAH Administration Protocol Ranitidine HCl 150 mg 04/07/17 11:45 04/11/17 09:19 Zantac Oral Solution - NGT 150 mg DAILY SARAH Administration Scopolamine HBr 1 patch 04/03/17 22:00 04/09/17 21:36 Transderm-Scop - TD 1 patch Q3D@2200 SARAH Administration Home Medications Medication Instructions Recorded Allopurinol 300 mg PO DAILY 03/17/17 Ferrous Sulfate 650 mg PO BID 03/17/17 Latanoprost 0.005% Eye Drops 1 drop OU HS 03/17/17 [Xalatan 0.005% Eye Drops -] Nystatin Cream [Mycostatin Cream -] 1 applic TP BID 03/17/17 Simvastatin [Zocor -] 80 mg PO HS 03/17/17 Sod Lactate/Amm Lact/Pot Lact 1 applic TP BID 03/17/17 [Amlactin Ultra Body Cream] Triamcinolone 0.1% Cream 1 applic TP BID 03/17/17 [Aristocort 0.1% Cream -] Amiodarone HCl [Cordarone -] 200 mg PO DAILY tablet 04/10/17 Atorvastatin Ca [Lipitor] 80 mg NGT HS tablet 04/10/17 Bacitracin - [Bacitracin Topical 1 applic TP DAILY tube 04/10/17 Ointment -] Furosemide Injection [Lasix 80 mg IVPUSH BID@0600,1400 vial 04/10/17 Injection -] Norepinephrine Bitartrate 8,000 mcg IV TITR ml 04/10/17 [Levophed Bitartrate -] ASSESSMENT/PLAN: 76 y/o man with h/o Severe cardiomypathy( non ischemic ) ,with severely reduced EF, and PULm HTN, Diastolic dysfunction , A fib on AC, who presented with cardiac arrest (V fib ) from his intermediate Tx was cancelled since needing increase on Levophed drip. # Acute hypoxic respiratory failure s/p Intubation s/p trach now on 04/02/17. On Levophed 10meq , as per ICU, patient's Bp was on the low side, levophed was increased back to 10meq. Patient is accepted to [facility] (LT[facility]) but they were not able to tx the patient since needing to increase the Levophed, Peg tube is high risk since patient has distended belly. Positive for NG tube now for feeding. # S/P cardiac arrest s/p hypothermic protocol: due to severe Right sided cardiomyopathy ,with Severe non-ischemic cardiomypoathy, patient has a defibrillator ,was interrogated on admission .On levophed ggt now for BP support to continue, continue po Amio. # Acute on Chronic renal Failure with ESRD now on HD s/p permacath at the right side continue HD as per nephro. # Acute hypokalemia repleted # sputum with MRSA s/p Vancomycin # Acute on chronic systolic and diastolic heart failure off lasix gtt. on IV LAsix now # A fib: rate is controlled on AMIODORAN CONTINUE DVT px : Off heparin drip due to having bleeding complications from trach site. Visit type - Emergency Visit Emergency Visit: Yes ED Registration Date: 03/17/17 Care time: The patient presented to the Emergency Department on the above date and was hospitalized for further evaluation of their emergent condition. - New Patient This patient is new to me today: No - Critical Care Critical Care patient: No
[2017-04-11] MEDS ORDERED: PT OWN MED DRAWER 7, Y5N ONE (20:41)
[2017-04-11] MEDS: ATORVASTATIN CA 80 MG TABLET (FP) NGT SCH (21:01)
[2017-04-11] MEDS: CHLORHEXIDINE GLUCONATE 4% CLEANSER FOR DECOLONIZATION TP SCH (21:02)
[2017-04-12] MEDS ORDERED: PT OWN MED DRAWER 7, Y5N ONE ×2 (05:42→22:11)
[2017-04-12] MEDS: FUROSEMIDE 40 MG/4 ML INJECTABLE VIAL IVPUSH SCH ×2 (06:00→13:40)
[2017-04-12] MEDS: INSULIN SLIDING SCALE (NOVOLOG) 1 VIAL SQ SCH ×4 (06:00→22:00)
[2017-04-12] MEDS: BANATROL PLUS POWDER PACKET PO SCH ×3 (06:00→23:00)
--- NOTE | 2017-04-12 07:12 | PN ---
Progress Note (short form) - Note Progress Note: Renal Follow up for SUJATA/Fluid overload Pt seen and examined in the ICU awake and alert on Trach, FiO2 45% oliguric urine output on Levophed 8 mcg tube feeds stopped because pt was coughing alot ? aspiration Vital Signs Temperature 98.8 F 04/11/17 18:00 Pulse Rate 71 04/12/17 06:13 Respiratory Rate 19 04/12/17 06:00 Blood Pressure 106/71 04/12/17 06:13 O2 Sat by Pulse Oximetry (%) 100 04/11/17 19:55 Intake & Output 04/09/17 04/10/17 04/11/17 04/12/17 23:59 23:59 23:59 23:59 Intake Total 1140.1 1832.8 1358 838.2 Output Total 310 250 450 250 Balance 830.1 1582.8 908 588.2 Weight 337 lb 337 lb 11.2 oz 338 lb 6.4 oz 311 lb 15.265 oz Gen: NAD CVS: RRR, No M/R Lungs: Dec BS, Course BS Abd: soft, Obese, ND Ext: 2+ edema in LE, no cyanosis, warm ext : Ridley in place CBC, BMP 04/11/17 05:40 04/11/17 05:40 Laboratory Tests 04/11/17 05:40 Calcium 8.0 L Albumin 2.2 L Current Medications Amiodarone HCl (Cordarone -) 200 mg PO DAILY [facility] Last Admin: 04/11/17 09:19 Dose: 200 mg Atorvastatin Calcium (Lipitor -) 80 mg NGT HS [facility] Last Admin: 04/11/17 21:01 Dose: 80 mg Bacitracin (Bacitracin -) 1 applic TP DAILY [facility] Last Admin: 04/11/17 09:19 Dose: 1 applic Chlorhexidine Gluconate (Hibiclens For Decolonization -) 1 applic TP HS [facility] Last Admin: 04/11/17 21:02 Dose: 1 applic Chlorhexidine Gluconate (Peridex -) 15 ml MM BID [facility] Last Admin: 04/11/17 21:01 Dose: 15 ml Furosemide (Lasix Injection -) 80 mg IVPUSH BID@0600,1400 [facility] Last Admin: 04/12/17 06:00 Dose: 80 mg Norepinephrine Bitartrate 8, (000 mcg/ Dextrose) 258 mls @ 15.48 mls/hr IV TITR SARAH; 8 MCG/MIN PRN Reason: Protocol Last Titration: 04/12/17 06:13 Dose: 8 mcg/min Insulin Aspart (Novolog Vial Sliding Scale -) 1 vial SQ ACHS SARAH PRN Reason: Protocol Last Admin: 04/12/17 06:00 Dose: 2 units Ranitidine HCl (Zantac Oral Solution -) 150 mg NGT DAILY [facility] Last Admin: 04/11/17 09:19 Dose: 150 mg Scopolamine HBr (Transderm-Scop -) 1 patch TD Q3D@2200 [facility] Last Admin: 04/09/17 21:36 Dose: 1 patch A/P 76 year old Gentleman with PMhx of CKD, CHF, Hypertension, Afib, Obesity, Prostate Ca who presented s/p cardiac arrest with SUJATA and Volume overload #Acute Renal Failure in setting of pre-existing CKD requiring dialysis Remains oliguric Todays labs pending no acute indication for dialysis unless labs show acidosis or hyperkalemia plan for next dialysis tomorrow continue IV lasix BId keep MAP > 65 #Anemia Will continue high dose epogen given history of CKD transfuse as per ICU protocol #Shock/Resp Failure Management as per ICU pending transfer to acute care facility #Cough/Possible Aspiration tube feeds being held CXR ordered Thank you Garry Drew DO
--- NOTE | 2017-04-12 09:13 | PN ---
Progress Note (short form) - Note Progress Note: Patient seen and examined in the ICU. Remains awake and interactive. Remains on 8 mcq NE for hemodynamic support. No acute events overnight. CXR : improving Right base Intake & Output 04/09/17 04/10/17 04/11/17 04/12/17 23:59 23:59 23:59 23:59 Intake Total 1140.1 1832.8 1358 838.2 Output Total 310 250 450 250 Balance 830.1 1582.8 908 588.2 Weight 337 lb 337 lb 11.2 oz 338 lb 6.4 oz 311 lb 15.265 oz Last Vital Signs Temp Pulse Resp BP Pulse Ox 98.8 F 72 24 93/69 100 04/11/17 18:00 04/12/17 08:00 04/12/17 08:27 04/12/17 08:00 04/12/17 08:27 Active Medications Amiodarone HCl (Cordarone -) 200 mg PO DAILY [facility] Last Admin: 04/11/17 09:19 Dose: 200 mg Atorvastatin Calcium (Lipitor -) 80 mg NGT HS [facility] Last Admin: 04/11/17 21:01 Dose: 80 mg Bacitracin (Bacitracin -) 1 applic TP DAILY [facility] Last Admin: 04/11/17 09:19 Dose: 1 applic Chlorhexidine Gluconate (Hibiclens For Decolonization -) 1 applic TP HS [facility] Last Admin: 04/11/17 21:02 Dose: 1 applic Chlorhexidine Gluconate (Peridex -) 15 ml MM BID [facility] Last Admin: 04/11/17 21:01 Dose: 15 ml Furosemide (Lasix Injection -) 80 mg IVPUSH BID@0600,1400 [facility] Last Admin: 04/12/17 06:00 Dose: 80 mg Norepinephrine Bitartrate 8, (000 mcg/ Dextrose) 258 mls @ 15.48 mls/hr IV TITR SARAH; 8 MCG/MIN PRN Reason: Protocol Last Titration: 04/12/17 06:13 Dose: 8 mcg/min Insulin Aspart (Novolog Vial Sliding Scale -) 1 vial SQ ACHS SARAH PRN Reason: Protocol Last Admin: 04/12/17 06:00 Dose: 2 units Ranitidine HCl (Zantac Oral Solution -) 150 mg NGT DAILY [facility] Last Admin: 04/11/17 09:19 Dose: 150 mg Scopolamine HBr (Transderm-Scop -) 1 patch TD Q3D@2200 SARAH Last Admin: 04/09/17 21:36 Dose: 1 patch Gen: Awake and interactive Heart: RRR, +systolic murmur Lung: scattered rhonchi Abd: soft, obese, edematous Ext: + edema Laboratory Results - last 24 hr 04/06/17 04/11/17 04/11/17 14:09 05:40 05:40 Differential Comment Slide scanned Platelet Estimate Adequate Platelet Comment No clotting detected Polychromasia 1+ Hypochromic-Microcytic 1+ Anisocytosis 2+ POC Glucometer [phone] Blood Type AB POSITIVE Antibody Screen Negative Crossmatch See Detail 04/11/17 04/11/17 11:51 20:49 Differential Comment Platelet Estimate Platelet Comment Polychromasia Hypochromic-Microcytic Anisocytosis POC Glucometer [phone] Blood Type Antibody Screen Crossmatch ASSESSMENT AND PLAN: S/P Vfib Cardiac Arrest Acute on Chronic Hypoxic Respiratory Failure S/P Tracheostomy Acute on Chronic Diastolic Heart Failure Severe Pulmonary HTN S/P BiV PPM CAD +Troponins Atrial Fibrillation HTN CKD Hyperlipidemia DM COPD Morbid Obesity Obstructive Sleep Apnea Anemia - Monitor off ABX - Amiodarone - Normal transfusion thresholds - monitor H/H - Off Hydrocortisone - Taper NE - taper FiO2 to keep SpO2 >90% - spontaneous breathing trials as tolerated - enteral feeds - DVT/GI prophylaxis - For LTAC transfer Dr Gomez critical care time spent in reviewing chart, evaluating patient and formulating plan 40 min
--- NOTE | 2017-04-12 10:11 | PN ---
Progress Note, Physician History of Present Illness: The patient is a 76 year old black male, with a significant past medical history of diastolic CHF (severely reduced RVEF of uncertain etiology; severely dilated RV on 02/2017 ECHO, per pt's auricular therapist at [facility]), (non- obstructive CAD by 2008 coronary angiogram), [employer] "biventricular pacemaker , COPD, HTN, HLD, Atrial Fibrillation, renal insufficiency, Morbid obesity, Prostate CA, Sleep apnea on O2, generalzied weakness (wheelchair-bound), Glaucoma BIBA from [facility] s/p Cardiac arrest. As per EMS, the patient was initially seated in PT doing leg exercises when he became unresponsive. Patient was brought back into his room in the ID and chest compressions were initiated by nursing staff. Down time was between 4-5 minutes. patient was shocked once and ROSC was noted. As per EMS, patient was given 150 mg of Amiodarone in the field and was brought into the ED for further evaluation. Upon arrival to the ED, patients (health care proxy) gave consent to intubate over the telephone. 2:48 PM- 20 mg of Etomidate given through IV 2:49 PM- 150 mg of Succinylcholine given through IV 2:50 PM- Patient intubated with 7.5 ET tube, positioned 24 cm at the lip Pt's says pt is followed closely by [facility] cardiac groups. I spoke by telephone with pt's auricular therapist, who provided much of the above history. - Current Medication List Current Medications: Active Medications Amiodarone HCl (Cordarone -) 200 mg PO DAILY [facility] Last Admin: 04/11/17 09:19 Dose: 200 mg Atorvastatin Calcium (Lipitor -) 80 mg NGT HS [facility] Last Admin: 04/11/17 21:01 Dose: 80 mg Bacitracin (Bacitracin -) 1 applic TP DAILY [facility] Last Admin: 04/11/17 09:19 Dose: 1 applic Chlorhexidine Gluconate (Hibiclens For Decolonization -) 1 applic TP HS [facility] Last Admin: 04/11/17 21:02 Dose: 1 applic Chlorhexidine Gluconate (Peridex -) 15 ml MM BID [facility] Last Admin: 04/11/17 21:01 Dose: 15 ml Furosemide (Lasix Injection -) 80 mg IVPUSH BID@0600,1400 [facility] Last Admin: 04/12/17 06:00 Dose: 80 mg Norepinephrine Bitartrate 8, (000 mcg/ Dextrose) 258 mls @ 15.48 mls/hr IV TITR SARAH; 8 MCG/MIN PRN Reason: Protocol Last Titration: 04/12/17 06:13 Dose: 8 mcg/min Insulin Aspart (Novolog Vial Sliding Scale -) 1 vial SQ ACHS SARAH PRN Reason: Protocol Last Admin: 04/12/17 06:00 Dose: 2 units Ranitidine HCl (Zantac Oral Solution -) 150 mg NGT DAILY [facility] Last Admin: 04/11/17 09:19 Dose: 150 mg Scopolamine HBr (Transderm-Scop -) 1 patch TD Q3D@2200 [facility] Last Admin: 04/09/17 21:36 Dose: 1 patch - Objective Vital Signs: Vital Signs Temperature 98.8 F 04/11/17 18:00 Pulse Rate 72 04/12/17 08:00 Respiratory Rate 37 H 04/12/17 09:59 Blood Pressure 93/69 04/12/17 08:00 O2 Sat by Pulse Oximetry (%) 100 04/12/17 08:27 Eyes: Yes: WNL, Conjunctiva Clear, EOM Intact HENT: Yes: WNL, Atraumatic, Normocephalic Neck: Yes: WNL, Supple, Trachea Midline Cardiovascular: Yes: WNL, Regular Rate and Rhythm Respiratory: Yes: Diminished, Mechanically Ventilated Gastrointestinal: Yes: WNL, Normal Bowel Sounds Genitourinary: Yes: WNL Musculoskeletal: Yes: WNL Extremities: Yes: WNL Edema: Yes Integumentary: Yes: WNL Neurological: Yes: WNL, Alert, Oriented ...Motor Strength: WNL Psychiatric: Yes: WNL Labs: CBC, BMP 04/11/17 05:40 04/11/17 05:40 INR, PTT INR 1.37 (0.82-1.09) H 04/07/17 06:25 Assessment/Plan - Problems (1) Cardiac arrest Assessment/Plan: Amiodarone now 200 mg daily. Remains on norepinephrine; attempting to titrate off. As discussed with Dr. Gomez and CCU team, agree with repeat ECHO, given pt' s protracted course and refractory hypotension, with attention to LVEF ( preserved on initial ECHO weeks ago; hx normal LVEF and severe RV dysfunction for years). Undergoing hemodialysis; s/p permacath. Code(s): I46.9 - CARDIAC ARREST, CAUSE UNSPECIFIED (2) Acute on chronic diastolic CHF (congestive heart failure) Assessment/Plan: see under "cardiac arrest'. Code(s): I50.33 - ACUTE ON CHRONIC DIASTOLIC (CONGESTIVE) HEART FAILURE (3) Hyperlipidemia Assessment/Plan: high-dose statin. Code(s): E78.5 - HYPERLIPIDEMIA, UNSPECIFIED (4) Sleep apnea Code(s): G47.30 - SLEEP APNEA, UNSPECIFIED (5) HTN (hypertension) Code(s): I10 - ESSENTIAL (PRIMARY) HYPERTENSION (6) 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 hypertension Assessment/Plan: Hx COPD; severe RV failure. White-out of left lung; mild improvement. F/u Is and Os. F/u c/s. S/p tracheostomy; remains ventrilator-dependent. On amiodarone (reduced to 200 mg daily). Code(s): I27.2 - OTHER SECONDARY PULMONARY HYPERTENSION (7) Hyperkalemia Assessment/Plan: f/u electrolytes closely, particularly while on amiodarone (K, Mg, and PO4 initially elevated); hemodialysis/UF per data processing consultant. Code(s): E87.5 - HYPERKALEMIA (8) Anemia Code(s): D64.9 - ANEMIA, UNSPECIFIED (9) Acute on chronic renal failure Code(s): N17.9 - ACUTE KIDNEY FAILURE, UNSPECIFIED N18.9 - CHRONIC KIDNEY DISEASE, UNSPECIFIED cc time38 min
[2017-04-12] MEDS: DEXTROSE 5% IV SCH (10:26)
[2017-04-12] MEDS: WATER IV SCH (10:26)
[2017-04-12] MEDS: NOREPINEPHRINE BITARTRATE IV SCH (10:26)
[2017-04-12] MEDS: BACITRACIN 15 GM TUBE TOPICAL OINTMENT TP SCH (10:27)
[2017-04-12] MEDS: AMIODARONE HCL 200 MG TABLET (FP) PO SCH (10:27)
[2017-04-12] MEDS: CHLORHEXIDINE GLUCONATE 0.12% 15ML CUP MM SCH ×2 (10:27→23:00)
[2017-04-12] MEDS: RANITIDINE HCL 150 MG/10 ML UNIT-DOSE CUP NGT SCH (10:27)
[2017-04-12] MEDS ORDERED: NOREPINEPHRINE BITARTRATE 4 MG/4 ML ML IV ONE (10:56)
--- NOTE | 2017-04-12 11:18 | PN ---
Progress Note (short form) - Note Progress Note: Patient in ICU comfortable , continues to be on Levophed drip back to 8meq Vital Signs Period Temp Pulse Resp BP Sys/Krishnan Pulse Ox Last 24 Hr 98 F-98.8 F 61-79 17-39 82-115/39-94 100-100 GENERAL: The patient is awake, opens eyes , no acute distress, trached. HEAD: Normal with no signs of trauma. EYES: PERRL, extraocular movements intact, sclera anicteric, conjunctiva clear. ENT: Ears normal, oropharynx clear without exudates, moist mucous membranes. NECK: Trachea midline, full range of motion, supple. LUNGS: decreased Breath sounds BL , no wheezes, no crackles, no accessory muscle use. HEART: Regular rate and rhythm, S1, S2 positive, MONICA 3/6 , no rub or gallop. ABDOMEN: Soft, nontender, distended, normoactive bowel sounds, no guarding, no rebound. EXTREMITIES: 2+ pulses, warm, well-perfused, 3 plus edema. NEUROLOGICAL: Cranial nerves II through XII grossly intact. Normal speech, gait not observed. PSYCH: Normal mood, normal affect. SKIN: Warm, dry, anasarca Rectal: positive for rectal tube CBCD WBC 11.0 K/mm3 (4.0-10.0) H 04/11/17 05:40 RBC 2.95 M/mm3 (4.00-5.60) L 04/11/17 05:40 Hgb 8.4 GM/dL (11.7-16.9) L 04/11/17 05:40 Hct 25.6 % (35.4-49) L 04/11/17 05:40 MCV 86.8 fl (80-96) 04/11/17 05:40 MCHC 32.9 g/dl (32.0-35.9) 04/11/17 05:40 RDW 21.0 % (11.9-15.9) H 04/11/17 05:40 Plt Count 168 K/MM3 (134-434) 04/11/17 05:40 MPV 8.4 fl (7.5-11.1) 04/11/17 05:40 CMP Sodium 141 mmol/L (136-145) 04/11/17 05:40 Potassium 3.5 mmol/L (3.5-5.1) 04/11/17 05:40 Chloride 101 mmol/L (98-107) 04/11/17 05:40 Carbon Dioxide 29 mmol/L (21-32) 04/11/17 05:40 Anion Gap 11 (8-16) 04/11/17 05:40 BUN 34 mg/dL (7-18) H D 04/11/17 05:40 Creatinine 3.2 mg/dL (0.7-1.3) H 04/11/17 05:40 Creat Clearance w eGFR 18.88 (>60) 04/11/17 05:40 Random Glucose 163 mg/dL (74-106) H 04/11/17 05:40 Calcium 8.0 mg/dL (8.5-10.1) L 04/11/17 05:40 Total Bilirubin 1.0 mg/dL (0.2-1.0) 04/11/17 05:40 AST 12 U/L (15-37) L D 04/11/17 05:40 ALT 8 U/L (12-78) L D 04/11/17 05:40 Alkaline Phosphatase 68 U/L (45-117) 04/11/17 05:40 Total Protein 5.6 g/dl (6.4-8.2) L 04/11/17 05:40 Albumin 2.2 g/dl (3.4-5.0) L 04/11/17 05:40 CARDIAC ENZYMES Creatine Kinase 146 IU/L (39-308) 03/18/17 10:23 Troponin I 0.16 ng/ml (0.00-0.05) H D 03/18/17 10:23 Current Medications Generic Name Dose Route Start Last Admin Trade Name Freq PRN Reason Stop Dose Admin Amiodarone HCl 200 mg 04/08/17 10:43 04/12/17 10:27 Cordarone - PO 200 mg DAILY SARAH Administration Atorvastatin Calcium 80 mg 03/18/17 09:45 04/11/17 21:01 Lipitor - NGT 80 mg HS SARAH Administration Bacitracin 1 applic 04/06/17 18:45 04/12/17 10:27 Bacitracin - TP 1 applic DAILY SARAH Administration Chlorhexidine Gluconate 1 applic 03/17/17 22:00 04/11/17 21:02 Hibiclens For Decolonization - TP 1 applic HS SARAH Administration Chlorhexidine Gluconate 15 ml 03/18/17 22:15 04/12/17 10:27 Peridex - MM 15 ml BID SARAH Administration Furosemide 80 mg 03/30/17 14:00 04/12/17 06:00 Lasix Injection - IVPUSH 80 mg BID@0600,1400 SARAH Administration Norepinephrine Bitartrate 8, 258 mls @ 15.48 mls/hr 03/30/17 08:15 04/12/17 10: 26 000 mcg/ Dextrose IV 15.48 mls/hr TITR SARAH Administration Protocol 8 MCG/MIN Insulin Aspart 1 vial 03/24/17 07:00 04/12/17 06:00 Novolog Vial Sliding Scale - SQ 2 units ACHS SARAH Administration Protocol Ranitidine HCl 150 mg 04/07/17 11:45 04/12/17 10:27 Zantac Oral Solution - NGT 150 mg DAILY SARAH Administration Scopolamine HBr 1 patch 04/03/17 22:00 04/09/17 21:36 Transderm-Scop - TD 1 patch Q3D@2200 SARAH Administration Home Medications Medication Instructions Recorded Allopurinol 300 mg PO DAILY 03/17/17 Ferrous Sulfate 650 mg PO BID 03/17/17 Latanoprost 0.005% Eye Drops 1 drop OU HS 03/17/17 [Xalatan 0.005% Eye Drops -] Nystatin Cream [Mycostatin Cream -] 1 applic TP BID 03/17/17 Simvastatin [Zocor -] 80 mg PO HS 03/17/17 Sod Lactate/Amm Lact/Pot Lact 1 applic TP BID 03/17/17 [Amlactin Ultra Body Cream] Triamcinolone 0.1% Cream 1 applic TP BID 03/17/17 [Aristocort 0.1% Cream -] Amiodarone HCl [Cordarone -] 200 mg PO DAILY tablet 04/10/17 Atorvastatin Ca [Lipitor] 80 mg NGT HS tablet 04/10/17 Bacitracin - [Bacitracin Topical 1 applic TP DAILY tube 04/10/17 Ointment -] Furosemide Injection [Lasix 80 mg IVPUSH BID@0600,1400 vial 04/10/17 Injection -] Norepinephrine Bitartrate 8,000 mcg IV TITR ml 04/10/17 [Levophed Bitartrate -] 76 y/o man with h/o Severe cardiomypathy( non ischemic ) ,with severely reduced EF, and PULm HTN, Diastolic dysfunction , A fib on AC, who presented with cardiac arrest (V fib ) from his long term # Acute hypoxic respiratory failure s/p Intubation s/p trach now on 04/02/17. On Levophed ,back to 8meq now. Patient is accepted to [place]([facility]) but waiting to there response ,No peg tube for now, since it's high risk since patient has distended belly. POsitive for NG tube now for feeding. # S/P cardiac arrest s/p hypothermic protocol: due to severe Right sided cardiomyopathy ,with Severe non-ischemic cardiomypoathy, patient has a defibrillator ,was interrogated on admission .On levophed ggt now for BP support to continue, continue po Amio. # Acute on Chronic renal Failure with ESRD now on HD s/p permacath at the right side,l continue HD as per nephro. # sputum with MRSA s/p Vancomycin # Acute on chronic systolic and diastolic heart failure off lasix gtt. on IV LAsix now # A fib: rate is controlled on AMIODORAN CONTINUE DVT px :DVT px :Off heparin drip due to having bleeding complications from trach site. Visit type - Emergency Visit Emergency Visit: Yes ED Registration Date: 03/17/17 Care time: The patient presented to the Emergency Department on the above date and was hospitalized for further evaluation of their emergent condition. - New Patient This patient is new to me today: No - Critical Care Critical Care patient: No
[2017-04-12 14:16] LABS: MCH 28.4 pg (25.7-33.7); MCHC 32.4 g/dl (32.0-35.9); MEAN CELL VOLUME 87.7 fl (80-96); MEAN PLT VOLUME 7.9 fl (7.5-11.1); PLATELET COUNT 149 K/MM3 (134-434); RDW 21.5 % (11.9-15.9); WHITE BLOOD COUNT 9.1 K/mm3 (4.0-10.0)
[2017-04-12 14:37] LABS: ALBUMIN 2.1 g/dl (3.4-5.0); BILIRUBIN,TOTAL 0.7 mg/dL (0.2-1.0); CREATININE 3.8 mg/dL (0.7-1.3); TOT PROT 5.5 g/dl (6.4-8.2)
[2017-04-12] MEDS: ATORVASTATIN CA 80 MG TABLET (FP) NGT SCH (23:00)
[2017-04-12] MEDS: CHLORHEXIDINE GLUCONATE 4% CLEANSER FOR DECOLONIZATION TP SCH (23:00)
[2017-04-12] MEDS: SCOPOLAMINE HYDROBROMIDE 1 PATCH PATCH.TD72 TD SCH (23:00)
[2017-04-13] MEDS: BANATROL PLUS POWDER PACKET PO SCH ×3 (06:09→21:53)
[2017-04-13] MEDS: INSULIN SLIDING SCALE (NOVOLOG) 1 VIAL SQ SCH ×4 (06:10→22:29)
[2017-04-13] MEDS: FUROSEMIDE 40 MG/4 ML INJECTABLE VIAL IVPUSH SCH ×2 (06:10→14:37)
[2017-04-13 06:18] LABS: BASOPHIL 0.6 % (0-2.0); EOSINOPHIL 2.4 % (0-4.5); MCH 28.6 pg (25.7-33.7); MCHC 32.9 g/dl (32.0-35.9); MEAN CELL VOLUME 86.8 fl (80-96); MEAN PLT VOLUME 8.1 fl (7.5-11.1); NEUTROPHILS 82.2 % (42.8-82.8); PLATELET COUNT 164 K/MM3 (134-434); RDW 21.3 % (11.9-15.9); WHITE BLOOD COUNT 7.5 K/mm3 (4.0-10.0)
[2017-04-13 06:59] LABS: ALBUMIN 2.1 g/dl (3.4-5.0); BILIRUBIN,TOTAL 0.6 mg/dL (0.2-1.0); CALCIUM 8.4 mg/dL (8.5-10.1); COCKROFT - GAULT 30.55; PHOSPHOROUS 3.7 mg/dL (2.5-4.9); TOT PROT 5.3 g/dl (6.4-8.2)
[2017-04-13] MEDS: DEXTROSE 5% IV SCH (07:00)
[2017-04-13] MEDS: NOREPINEPHRINE BITARTRATE IV SCH (07:00)
[2017-04-13] MEDS: WATER IV SCH (07:00)
--- NOTE | 2017-04-13 08:35 | PN ---
Progress Note (short form) - Note Progress Note: Renal Follow up for SUJATA/Fluid overload Pt seen and examined in the ICU awake on vent FiO2 40%, On Levophed 2mcg BP good oliguric urine output for HD today Vital Signs Temperature 98.2 F 04/13/17 06:00 Pulse Rate 74 04/13/17 06:00 Respiratory Rate 20 04/13/17 07:27 Blood Pressure 90/63 04/13/17 06:00 O2 Sat by Pulse Oximetry (%) 100 04/13/17 07:30 Intake & Output 04/10/17 04/11/17 04/12/17 04/13/17 23:59 23:59 23:59 23:59 Intake Total 1832.8 1358 1618.2 580 Output Total 250 450 275 100 Balance 1582.8 908 1343.2 480 Weight 337 lb 11.2 oz 338 lb 6.4 oz 311 lb 15.265 oz 312 lb 15.265 oz Gen: NAD CVS: RRR, No M/R Lungs: Dec BS, Course BS Abd: soft, Obese, ND Ext: 2+ edema in LE, no cyanosis, warm ext : Ridley in place CBC, BMP 04/13/17 05:30 04/13/17 05:30 Laboratory Tests 04/13/17 05:30 Calcium 8.4 L Phosphorus 3.7 Albumin 2.1 L Current Medications Amiodarone HCl (Cordarone -) 200 mg PO DAILY [facility] Last Admin: 04/12/17 10:27 Dose: 200 mg Atorvastatin Calcium (Lipitor -) 80 mg NGT HS [facility] Last Admin: 04/12/17 23:00 Dose: 80 mg Bacitracin (Bacitracin -) 1 applic TP DAILY [facility] Last Admin: 04/12/17 10:27 Dose: 1 applic Chlorhexidine Gluconate (Hibiclens For Decolonization -) 1 applic TP HS [facility] Last Admin: 04/12/17 23:00 Dose: 1 applic Chlorhexidine Gluconate (Peridex -) 15 ml MM BID [facility] Last Admin: 04/12/17 23:00 Dose: 15 ml Epoetin Severo (Epogen -) 20,000 units IVPUSH ONCE ONE Stop: 04/13/17 06:01 Furosemide (Lasix Injection -) 80 mg IVPUSH BID@0600,1400 [facility] Last Admin: 04/13/17 06:10 Dose: 80 mg Norepinephrine Bitartrate 8, (000 mcg/ Dextrose) 258 mls @ 15.48 mls/hr IV TITR SARAH; 8 MCG/MIN PRN Reason: Protocol Last Admin: 04/12/17 10:26 Dose: 15.48 mls/hr Insulin Aspart (Novolog Vial Sliding Scale -) 1 vial SQ ACHS SARAH PRN Reason: Protocol Last Admin: 04/13/17 06:10 Dose: 2 units Ranitidine HCl (Zantac Oral Solution -) 150 mg NGT DAILY [facility] Last Admin: 04/12/17 10:27 Dose: 150 mg Scopolamine HBr (Transderm-Scop -) 1 patch TD Q3D@2200 [facility] Last Admin: 04/12/17 23:00 Dose: 1 patch A/P 76 year old Gentleman with PMhx of CKD, CHF, Hypertension, Afib, Obesity, Prostate Ca who presented s/p cardiac arrest with SUJATA and Volume overload #Acute Renal Failure in setting of pre-existing CKD requiring dialysis Oliguric despite Lasix For HD today with goal UF of 3-4L as tolerated Trend BUN/Cr and Urine output Keep MAP > 65 Continue IV lasix BID dose all meds for intermittent HD #Anemia Epogen with HD Transfuse as per ICU protocol #Shock/Resp Failure Management as per ICU pending transfer to acute care facility (to be re-evaluated tomorrow) Titrate pressers Thank you Garry Drew DO
[2017-04-13] MEDS: CHLORHEXIDINE GLUCONATE 0.12% 15ML CUP MM SCH ×2 (09:09→21:54)
[2017-04-13] MEDS: RANITIDINE HCL 150 MG/10 ML UNIT-DOSE CUP NGT SCH (09:09)
[2017-04-13] MEDS: BACITRACIN 15 GM TUBE TOPICAL OINTMENT TP SCH (09:09)
[2017-04-13] MEDS: AMIODARONE HCL 200 MG TABLET (FP) PO SCH (09:09)
--- NOTE | 2017-04-13 09:12 | PN ---
Progress Note, Physician History of Present Illness: The patient is a 76 year old black male, with a significant past medical history of diastolic CHF (severely reduced RVEF of uncertain etiology; severely dilated RV on 02/2017 ECHO, per pt's research statistician at [facility]), (non- obstructive CAD by 2008 coronary angiogram), [employer] "biventricular pacemaker , COPD, HTN, HLD, Atrial Fibrillation, renal insufficiency, Morbid obesity, Prostate CA, Sleep apnea on O2, generalzied weakness (wheelchair-bound), Glaucoma BIBA from [facility] s/p Cardiac arrest. As per EMS, the patient was initially seated in PT doing leg exercises when he became unresponsive. Patient was brought back into his room in the IN and chest compressions were initiated by nursing staff. Down time was between 4-5 minutes. patient was shocked once and ROSC was noted. As per EMS, patient was given 150 mg of Amiodarone in the field and was brought into the ED for further evaluation. Upon arrival to the ED, patients (health care proxy) gave consent to intubate over the telephone. 2:48 PM- 20 mg of Etomidate given through IV 2:49 PM- 150 mg of Succinylcholine given through IV 2:50 PM- Patient intubated with 7.5 ET tube, positioned 24 cm at the lip Pt's says pt is followed closely by [facility] and cardiac groups. I spoke by telephone with pt's research statistician, who provided much of the above history. - Current Medication List Current Medications: Active Medications Amiodarone HCl (Cordarone -) 200 mg PO DAILY [facility] Last Admin: 04/13/17 09:09 Dose: 200 mg Atorvastatin Calcium (Lipitor -) 80 mg NGT HS [facility] Last Admin: 04/12/17 23:00 Dose: 80 mg Bacitracin (Bacitracin -) 1 applic TP DAILY [facility] Last Admin: 04/13/17 09:09 Dose: 1 applic Chlorhexidine Gluconate (Hibiclens For Decolonization -) 1 applic TP HS [facility] Last Admin: 04/12/17 23:00 Dose: 1 applic Chlorhexidine Gluconate (Peridex -) 15 ml MM BID [facility] Last Admin: 04/13/17 09:09 Dose: 15 ml Epoetin Severo (Epogen -) 20,000 units IVPUSH ONCE ONE Stop: 04/13/17 06:01 Furosemide (Lasix Injection -) 80 mg IVPUSH BID@0600,1400 [facility] Last Admin: 04/13/17 06:10 Dose: 80 mg Norepinephrine Bitartrate 8, (000 mcg/ Dextrose) 258 mls @ 15.48 mls/hr IV TITR SARAH; 8 MCG/MIN PRN Reason: Protocol Last Admin: 04/12/17 10:26 Dose: 15.48 mls/hr Insulin Aspart (Novolog Vial Sliding Scale -) 1 vial SQ ACHS SARAH PRN Reason: Protocol Last Admin: 04/13/17 06:10 Dose: 2 units Ranitidine HCl (Zantac Oral Solution -) 150 mg NGT DAILY [facility] Last Admin: 04/13/17 09:09 Dose: 150 mg Scopolamine HBr (Transderm-Scop -) 1 patch TD Q3D@2200 [facility] Last Admin: 04/12/17 23:00 Dose: 1 patch - Objective Vital Signs: Vital Signs Temperature 98.2 F 04/13/17 06:00 Pulse Rate 74 04/13/17 06:00 Respiratory Rate 20 04/13/17 07:27 Blood Pressure 90/63 04/13/17 06:00 O2 Sat by Pulse Oximetry (%) 100 04/13/17 07:30 Eyes: Yes: WNL, Conjunctiva Clear, EOM Intact HENT: Yes: WNL, Atraumatic, Normocephalic Neck: Yes: WNL, Supple, Trachea Midline Cardiovascular: Yes: WNL, Regular Rate and Rhythm Respiratory: Yes: Intubated (tracheostomy), Mechanically Ventilated Gastrointestinal: Yes: WNL, Normal Bowel Sounds Genitourinary: Yes: WNL Musculoskeletal: Yes: WNL Extremities: Yes: WNL Edema: Yes Integumentary: Yes: WNL Neurological: Yes: WNL, Alert, Oriented ...Motor Strength: WNL Psychiatric: Yes: WNL Labs: CBC, BMP 04/13/17 05:30 04/13/17 05:30 INR, PTT INR 1.37 (0.82-1.09) H 04/07/17 06:25 Assessment/Plan - Problems (1) Cardiac arrest Assessment/Plan: Amiodarone now 200 mg daily. Remains on norepinephrine; attempting to titrate off. As discussed with Dr. Gomez and CCU team, agree with repeat ECHO, given pt' s protracted course and refractory hypotension, with attention to LVEF ( preserved on initial ECHO weeks ago; hx normal LVEF and severe RV dysfunction for years). Undergoing hemodialysis; s/p permacath. Code(s): I46.9 - CARDIAC ARREST, CAUSE UNSPECIFIED (2) Acute on chronic diastolic CHF (congestive heart failure) Assessment/Plan: see under "cardiac arrest'. Code(s): I50.33 - ACUTE ON CHRONIC DIASTOLIC (CONGESTIVE) HEART FAILURE (3) Hyperlipidemia Assessment/Plan: high-dose statin. Code(s): E78.5 - HYPERLIPIDEMIA, UNSPECIFIED (4) Sleep apnea Code(s): G47.30 - SLEEP APNEA, UNSPECIFIED (5) HTN (hypertension) Code(s): I10 - ESSENTIAL (PRIMARY) HYPERTENSION (6) 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 hypertension Assessment/Plan: Hx COPD; severe RV failure. White-out of left lung; mild improvement. F/u Is and Os. F/u c/s. S/p tracheostomy; remains ventrilator-dependent. On amiodarone (reduced to 200 mg daily). Code(s): I27.2 - OTHER SECONDARY PULMONARY HYPERTENSION (7) Hyperkalemia Assessment/Plan: f/u electrolytes closely, particularly while on amiodarone (K, Mg, and PO4 initially elevated); hemodialysis/UF per curriculum manager. Code(s): E87.5 - HYPERKALEMIA (8) Anemia Code(s): D64.9 - ANEMIA, UNSPECIFIED (9) Acute on chronic renal failure Code(s): N17.9 - ACUTE KIDNEY FAILURE, UNSPECIFIED N18.9 - CHRONIC KIDNEY DISEASE, UNSPECIFIED cc time38 min
--- NOTE | 2017-04-13 10:33 | PN ---
Progress Note (short form) - Note Progress Note: Patient seen and examined in the ICU. Awake and interactive. Currently on 2 mcq NE for hemodynamic support. No acute events overnight. Intake & Output 04/10/17 04/11/17 04/12/17 04/13/17 23:59 23:59 23:59 23:59 Intake Total 1832.8 1358 1618.2 580 Output Total 250 450 275 100 Balance 1582.8 908 1343.2 480 Weight 337 lb 11.2 oz 338 lb 6.4 oz 311 lb 15.265 oz 312 lb 15.265 oz Last Vital Signs Temp Pulse Resp BP Pulse Ox 98.2 F 74 28 H 101/58 100 04/13/17 06:00 04/13/17 10:00 04/13/17 10:00 04/13/17 10:00 04/13/17 07:30 Active Medications Amiodarone HCl (Cordarone -) 200 mg PO DAILY [facility] Last Admin: 04/13/17 09:09 Dose: 200 mg Atorvastatin Calcium (Lipitor -) 80 mg NGT HS [facility] [place] Last Admin: 04/12/17 23:00 Dose: 80 mg Bacitracin (Bacitracin -) 1 applic TP DAILY SARAH Last Admin: 04/13/17 09:09 Dose: 1 applic Chlorhexidine Gluconate (Hibiclens For Decolonization -) 1 applic TP HS [facility] [place] Last Admin: 04/12/17 23:00 Dose: 1 applic Chlorhexidine Gluconate (Peridex -) 15 ml MM BID [facility] Last Admin: 04/13/17 09:09 Dose: 15 ml Epoetin Severo (Epogen -) 20,000 units IVPUSH ONCE ONE Stop: 04/13/17 06:01 Furosemide (Lasix Injection -) 80 mg IVPUSH BID@0600,1400 SARAH Last Admin: 04/13/17 06:10 Dose: 80 mg Norepinephrine Bitartrate 8, (000 mcg/ Dextrose) 258 mls @ 15.48 mls/hr IV TITR SARHA; 8 MCG/MIN PRN Reason: Protocol Last Admin: 04/12/17 10:26 Dose: 15.48 mls/hr Insulin Aspart (Novolog Vial Sliding Scale -) 1 vial SQ ACHS SARAH PRN Reason: Protocol Last Admin: 04/13/17 06:10 Dose: 2 units Ranitidine HCl (Zantac Oral Solution -) 150 mg NGT DAILY [facility] [place] Last Admin: 04/13/17 09:09 Dose: 150 mg Scopolamine HBr (Transderm-Scop -) 1 patch TD Q3D@2200 [facility] Last Admin: 04/12/17 23:00 Dose: 1 patch Gen: Awake and interactive Heart: RRR, +systolic murmur Lung: scattered rhonchi Abd: soft, obese, edematous Ext: + edema Laboratory Results - last 24 hr 04/12/17 04/12/17 04/12/17 05:51 11:58 13:00 WBC 9.1 RBC 2.91 L Hgb 8.3 L Hct 25.5 L MCV 87.7 MCHC 32.4 RDW 21.5 H Plt Count 149 MPV 7.9 Neutrophils % Lymphocytes % Monocytes % Eosinophils % Basophils % Sodium Potassium Chloride Carbon Dioxide Anion Gap BUN Creatinine Creat Clearance w eGFR POC Glucometer 163.33740 131.81802 Random Glucose Calcium Phosphorus Total Bilirubin AST ALT Alkaline Phosphatase Total Protein Albumin 04/12/17 04/12/17 04/12/17 13:00 17:32 22:53 WBC RBC Hgb Hct MCV MCHC RDW Plt Count MPV Neutrophils % Lymphocytes % Monocytes % Eosinophils % Basophils % Sodium 142 Potassium 3.8 Chloride 100 Carbon Dioxide 31 Anion Gap 11 BUN 38 H Creatinine 3.8 H Creat Clearance w eGFR 15.48 POC Glucometer 175.37407 155.00339 Random Glucose 102 D Calcium 8.0 L Phosphorus Total Bilirubin 0.7 D AST 14 L ALT 7 L Alkaline Phosphatase 67 Total Protein 5.5 L Albumin 2.1 L 04/13/17 04/13/17 05:30 05:30 WBC 7.5 RBC 2.76 L Hgb 7.9 L Hct 23.9 L MCV 86.8 MCHC 32.9 RDW 21.3 H Plt Count 164 MPV 8.1 Neutrophils % 82.2 Lymphocytes % 9.2 D Monocytes % 5.6 Eosinophils % 2.4 D Basophils % 0.6 Sodium 141 Potassium 3.8 Chloride 101 Carbon Dioxide 31 Anion Gap 9 BUN 44 H Creatinine 4.0 H Creat Clearance w eGFR 14.59 POC Glucometer Random Glucose 133 H D Calcium 8.4 L Phosphorus 3.7 Total Bilirubin 0.6 AST 14 L ALT 6 L Alkaline Phosphatase 67 Total Protein 5.3 L Albumin 2.1 L ASSESSMENT AND PLAN: S/P Vfib Cardiac Arrest Acute on Chronic Hypoxic Respiratory Failure S/P Tracheostomy Acute on Chronic Diastolic Heart Failure Severe Pulmonary HTN S/P BiV PPM CAD +Troponins Atrial Fibrillation HTN CKD Hyperlipidemia DM COPD Morbid Obesity Obstructive Sleep Apnea Anemia - Monitor off ABX - Amiodarone - Normal transfusion thresholds - Off Hydrocortisone - Taper NE - taper FiO2 to keep SpO2 >90% - spontaneous breathing trials as tolerated - enteral feeds - DVT/GI prophylaxis - For LTAC transfer Dr Gomez Critical care time spent in reviewing chart, evaluating patient and formulating plan 35 min
--- NOTE | 2017-04-13 10:48 | PN ---
Progress Note (short form) - Note Progress Note: Patient continues to be in ICU, trached on the vent Temperature 98.2 F 04/13/17 06:00 Pulse Rate 74 04/13/17 10:00 Respiratory Rate 28 H 04/13/17 10:00 Blood Pressure 101/58 04/13/17 10:00 O2 Sat by Pulse Oximetry (%) 100 04/13/17 07:30 GENERAL: The patient is awake, opens eyes , no acute distress, trached. HEAD: Normal with no signs of trauma. EYES: PERRL, extraocular movements intact, sclera anicteric, conjunctiva clear. ENT: Ears normal, oropharynx clear without exudates, moist mucous membranes. NECK: Trachea midline, full range of motion, supple. LUNGS: decreased Breath sounds BL , no wheezes, no crackles, no accessory muscle use. HEART: Regular rate and rhythm, S1, S2 positive, MONICA 3/6 , positive for defibrillator . ABDOMEN: Soft, nontender, distended, normoactive bowel sounds, no guarding, no rebound. EXTREMITIES: 2+ pulses, warm, well-perfused, 3 plus edema. NEUROLOGICAL: Cranial nerves II through XII grossly intact. Normal speech, gait not observed. PSYCH: Normal mood, normal affect. SKIN: Warm, dry, anasarca Rectal: positive for rectal tube CBCD WBC 7.5 K/mm3 (4.0-10.0) 04/13/17 05:30 RBC 2.76 M/mm3 (4.00-5.60) L 04/13/17 05:30 Hgb 7.9 GM/dL (11.7-16.9) L 04/13/17 05:30 Hct 23.9 % (35.4-49) L 04/13/17 05:30 MCV 86.8 fl (80-96) 04/13/17 05:30 MCHC 32.9 g/dl (32.0-35.9) 04/13/17 05:30 RDW 21.3 % (11.9-15.9) H 04/13/17 05:30 Plt Count 164 K/MM3 (134-434) 04/13/17 05:30 MPV 8.1 fl (7.5-11.1) 04/13/17 05:30 CMP Sodium 141 mmol/L (136-145) 04/13/17 05:30 Potassium 3.8 mmol/L (3.5-5.1) 04/13/17 05:30 Chloride 101 mmol/L (98-107) 04/13/17 05:30 Carbon Dioxide 31 mmol/L (21-32) 04/13/17 05:30 Anion Gap 9 (8-16) 04/13/17 05:30 BUN 44 mg/dL (7-18) H 04/13/17 05:30 Creatinine 4.0 mg/dL (0.7-1.3) H 04/13/17 05:30 Creat Clearance w eGFR 14.59 (>60) 04/13/17 05:30 Random Glucose 133 mg/dL (74-106) H D 04/13/17 05:30 Calcium 8.4 mg/dL (8.5-10.1) L 04/13/17 05:30 Total Bilirubin 0.6 mg/dL (0.2-1.0) 04/13/17 05:30 AST 14 U/L (15-37) L 04/13/17 05:30 ALT 6 U/L (12-78) L 04/13/17 05:30 Alkaline Phosphatase 67 U/L (45-117) 04/13/17 05:30 Total Protein 5.3 g/dl (6.4-8.2) L 04/13/17 05:30 Albumin 2.1 g/dl (3.4-5.0) L 04/13/17 05:30 CARDIAC ENZYMES Creatine Kinase 146 IU/L (39-308) 03/18/17 10:23 Troponin I 0.16 ng/ml (0.00-0.05) H D 03/18/17 10:23 Current Medications Generic Name Dose Route Start Last Admin Trade Name Freq PRN Reason Stop Dose Admin Amiodarone HCl 200 mg 04/08/17 10:43 04/13/17 09:09 Cordarone - PO 200 mg DAILY SARAH Administration Atorvastatin Calcium 80 mg 03/18/17 09:45 04/12/17 23:00 Lipitor - NGT 80 mg HS SARAH Administration Bacitracin 1 applic 04/06/17 18:45 04/13/17 09:09 Bacitracin - TP 1 applic DAILY SARAH Administration Chlorhexidine Gluconate 1 applic 03/17/17 22:00 04/12/17 23:00 Hibiclens For Decolonization - TP 1 applic HS SARAH Administration Chlorhexidine Gluconate 15 ml 03/18/17 22:15 04/13/17 09:09 Peridex - MM 15 ml BID SARAH Administration Epoetin Severo 20,000 units 04/13/17 06:00 Epogen - IVPUSH 04/13/17 06:01 ONCE ONE Furosemide 80 mg 03/30/17 14:00 04/13/17 06:10 Lasix Injection - IVPUSH 80 mg BID@0600,1400 SARAH Administration Norepinephrine Bitartrate 8, 258 mls @ 15.48 mls/hr 03/30/17 08:15 04/12/17 10: 26 000 mcg/ Dextrose IV 15.48 mls/hr TITR SARAH Administration Protocol 8 MCG/MIN Insulin Aspart 1 vial 03/24/17 07:00 04/13/17 06:10 Novolog Vial Sliding Scale - SQ 2 units ACHS SARAH Administration Protocol Ranitidine HCl 150 mg 04/07/17 11:45 04/13/17 09:09 Zantac Oral Solution - NGT 150 mg DAILY SARAH Administration Scopolamine HBr 1 patch 04/03/17 22:00 04/12/17 23:00 Transderm-Scop - TD 1 patch Q3D@2200 SARAH Administration Home Medications Medication Instructions Recorded Allopurinol 300 mg PO DAILY 03/17/17 Ferrous Sulfate 650 mg PO BID 03/17/17 Latanoprost 0.005% Eye Drops 1 drop OU HS 03/17/17 [Xalatan 0.005% Eye Drops -] Nystatin Cream [Mycostatin Cream -] 1 applic TP BID 03/17/17 Simvastatin [Zocor -] 80 mg PO HS 03/17/17 Sod Lactate/Amm Lact/Pot Lact 1 applic TP BID 03/17/17 [Amlactin Ultra Body Cream] Triamcinolone 0.1% Cream 1 applic TP BID 03/17/17 [Aristocort 0.1% Cream -] Amiodarone HCl [Cordarone -] 200 mg PO DAILY tablet 04/10/17 Atorvastatin Ca [Lipitor] 80 mg NGT HS tablet 04/10/17 Bacitracin - [Bacitracin Topical 1 applic TP DAILY tube 04/10/17 Ointment -] Furosemide Injection [Lasix 80 mg IVPUSH BID@0600,1400 vial 04/10/17 Injection -] Norepinephrine Bitartrate 8,000 mcg IV TITR ml 04/10/17 [Levophed Bitartrate -] A/P: 76 y/o man with h/o Severe cardiomypathy( non ischemic ) ,with severely reduced EF, and PULm HTN, Diastolic dysfunction , A fib on AC, who presented with cardiac arrest (V fib ) from his fdc # Acute hypoxic respiratory failure s/p Intubation s/p trach now on 04/02/17. On Levophed drip back to 8meq now. Patient is accepted to [facility]) but waiting for a bed ,No peg tube for now since it's high risk due to having distended belly. Positive for NG tube now for feeding. # S/P cardiac arrest s/p hypothermic protocol: due to severe Right sided cardiomyopathy ,with Severe non-ischemic cardiomypoathy, patient has a defibrillator ,was interrogated on admission .On levophed ggt now for BP support to continue, continue po Amio. # Acute on Chronic renal Failure with ESRD now on HD s/p permacath at the right side, continue HD as per nephro. # sputum with MRSA s/p Vancomycin # Acute on chronic systolic and diastolic heart failure off lasix gtt. on IV LAsix now # A fib: rate is controlled on AMIODORAN CONTINUE DVT px :DVT px :Off heparin drip due to having bleeding complications from trach site. Visit type - Emergency Visit Emergency Visit: Yes ED Registration Date: 03/17/17 Care time: The patient presented to the Emergency Department on the above date and was hospitalized for further evaluation of their emergent condition. - New Patient This patient is new to me today: No - Critical Care Critical Care patient: No
[2017-04-13] MEDS ORDERED: NOREPINEPHRINE BITARTRATE 4 MG/4 ML ML IV ONE (12:05)
[2017-04-13] MEDS ORDERED: EPOETIN ALFA 20,000 UNIT/1 ML VIAL IVPUSH ONE (15:45)
[2017-04-13] MEDS ORDERED: PT OWN MED DRAWER 7, Y5N ONE (21:34)
[2017-04-13] MEDS: CHLORHEXIDINE GLUCONATE 4% CLEANSER FOR DECOLONIZATION TP SCH (21:53)
[2017-04-13] MEDS: ATORVASTATIN CA 80 MG TABLET (FP) NGT SCH (21:54)
[2017-04-14 06:23] LABS: EOSINOPHIL 2.4 % (0-4.5); MCH 28.5 pg (25.7-33.7); MCHC 32.8 g/dl (32.0-35.9); MEAN CELL VOLUME 86.9 fl (80-96); NEUTROPHILS 79.1 % (42.8-82.8); PLATELET COUNT 114 K/MM3 (134-434); RDW 22.5 % (11.9-15.9); WHITE BLOOD COUNT 6.9 K/mm3 (4.0-10.0)
[2017-04-14] MEDS: FUROSEMIDE 40 MG/4 ML INJECTABLE VIAL IVPUSH SCH ×2 (06:23→14:53)
[2017-04-14] MEDS: BANATROL PLUS POWDER PACKET PO SCH ×2 (06:23→14:53)
[2017-04-14] MEDS: INSULIN SLIDING SCALE (NOVOLOG) 1 VIAL SQ SCH ×2 (06:23→11:29)
[2017-04-14 06:45] LABS: ALBUMIN 2.2 g/dl (3.4-5.0); CALCIUM 8.3 mg/dL (8.5-10.1); COCKROFT - GAULT 36.56; CREATININE 3.3 mg/dL (0.7-1.3); MAGNESIUM 2.3 mg/dL (1.8-2.4); PHOSPHOROUS 2.9 mg/dL (2.5-4.9)
[2017-04-14 06:46] LABS: BILIRUBIN,TOTAL 0.9 mg/dL (0.2-1.0); TOT PROT 5.6 g/dl (6.4-8.2)
[2017-04-14] MEDS: AMIODARONE HCL 200 MG TABLET (FP) PO SCH (10:52)
[2017-04-14] MEDS: RANITIDINE HCL 150 MG/10 ML UNIT-DOSE CUP NGT SCH (10:53)
[2017-04-14] MEDS: CHLORHEXIDINE GLUCONATE 0.12% 15ML CUP MM SCH (10:53)
--- NOTE | 2017-04-14 10:53 | PN ---
Progress Note (short form) - Note Progress Note: Renal Follow up for SUJATA/Fluid overload Pt seen and examined in the ICU awake on Vent via trach off pressers since last night s/p dialysis yesterday with 3.2kg UF Vital Signs Temperature 98.2 F 04/14/17 06:00 Pulse Rate 81 04/14/17 08:00 Respiratory Rate 26 H 04/14/17 08:00 Blood Pressure 101/88 04/14/17 08:00 O2 Sat by Pulse Oximetry (%) 100 04/13/17 20:00 Intake & Output 04/11/17 04/12/17 04/13/17 04/14/17 23:59 23:59 23:59 23:59 Intake Total 1358 1618.2 1230 590 Output Total 450 275 200 100 Balance 908 1343.2 1030 490 Weight 338 lb 6.4 oz 311 lb 15.265 oz 312 lb 15.265 oz 308 lb 15.265 oz Gen: NAD, awake and alert CVS: RRR, No M/R Lungs: Dec BS, Course BS Abd: soft, Obese, ND Ext: 2+ edema in LE, no cyanosis, warm ext : Ridley in place CBC, BMP 04/14/17 05:30 04/14/17 05:30 Laboratory Tests 04/14/17 05:30 Calcium 8.3 L Phosphorus 2.9 D Magnesium 2.3 Albumin 2.2 L Current Medications Amiodarone HCl (Cordarone -) 200 mg PO DAILY [facility] Last Admin: 04/13/17 09:09 Dose: 200 mg Atorvastatin Calcium (Lipitor -) 80 mg NGT HS [facility] Last Admin: 04/13/17 21:54 Dose: 80 mg Bacitracin (Bacitracin -) 1 applic TP DAILY [facility] Last Admin: 04/13/17 09:09 Dose: 1 applic Chlorhexidine Gluconate (Hibiclens For Decolonization -) 1 applic TP HS [facility] Last Admin: 04/13/17 21:53 Dose: 1 applic Chlorhexidine Gluconate (Peridex -) 15 ml MM BID [facility] Last Admin: 04/13/17 21:54 Dose: 15 ml Furosemide (Lasix Injection -) 80 mg IVPUSH BID@0600,1400 [facility] Last Admin: 04/14/17 06:23 Dose: 80 mg Insulin Aspart (Novolog Vial Sliding Scale -) 1 vial SQ ACHS [facility] PRN Reason: Protocol Last Admin: 04/14/17 06:23 Dose: 2 units Ranitidine HCl (Zantac Oral Solution -) 150 mg NGT DAILY [facility] Last Admin: 04/13/17 09:09 Dose: 150 mg Scopolamine HBr (Transderm-Scop -) 1 patch TD Q3D@2200 [facility] Last Admin: 04/12/17 23:00 Dose: 1 patch A/P 76 year old Gentleman with PMhx of CKD, CHF, Hypertension, Afib, Obesity, Prostate Ca who presented s/p cardiac arrest with SUJATA and Volume overload #Acute Renal Failure in setting of pre-existing CKD requiring dialysis s/p dialysis yesterday with 3.2kg UF no acute indication for dialysis today remains oliguic keep MAP> 65 #Anemia Epogen with HD Transfuse as per ICU protocol #Shock/Resp Failure Management as per ICU off pressers awaiting [facility] Thank you Garry Drew DO
[2017-04-14] MEDS: BACITRACIN 15 GM TUBE TOPICAL OINTMENT TP SCH (10:57)
--- NOTE | 2017-04-14 11:27 | PN ---
Physical Exam: SUBJECTIVE: Patient seen and examined in ICU. He doesn't have any complaints today but it is difficult to communicate with him. No overnight events. OBJECTIVE: Vital Signs Period Temp Pulse Resp BP Sys/Krishnan Pulse Ox Last 24 Hr 98.2 F-98.4 F 68-98 18-35 87-127/51-88 100-100 GENERAL: The patient is awake, on mechanical ventilation. HEAD: Normal with no signs of trauma. EYES: sclera anicteric, conjunctiva clear. ENT: moist mucous membranes, trachea. NECK: Trachea midline, full range of motion, supple, perm cath on r side, central line on left side of the neck. LUNGS: Breath sounds equal, coarse breath sounds bilaterally, no accessory muscle use. HEART: Regular rate and rhythm, S1, S2 without murmur, rub or gallop. ABDOMEN: Obese, soft, nontender, distended, normoactive bowel sounds, no guarding, no rebound, no masses, edema present. EXTREMITIES: 2+ pulses, warm, 1+ edema in LE and abdomen. NEUROLOGICAL: No facial asymmetry, following commands, motor 4/5 in upper extremities, 4/5 in lower extremities, gait not observed. PSYCH: Awake. Ridley cath, draining yellow urine. Rectal tube draining. Dialysis cath inserted 04/06/17, central line 04/09/17. Laboratory Results - last 24 hr 04/11/17 04/11/17 04/13/17 17:03 17:05 05:37 WBC RBC Hgb Hct MCV MCHC RDW Plt Count MPV Neutrophils % Lymphocytes % Monocytes % Eosinophils % Basophils % Nucleated RBCs Hypersegmented Neuts Toxic Granulation Dohle Bodies Jose Rods Polychromasia Hypochromic-Microcytic Poikilocytosis Basophilic Stippling Anisocytosis Microcytosis Macrocytosis Spherocytes Siderocytes Sickle Cells Target Cells Tear Drop Cells Ovalocytes Stomatocytes Helmet Cells [place] Bodies [place] Rings Kin Cells Acanthocytes (Spur) Rouleaux Fragmented RBCs Schistocytes Morphology Comment Sodium Potassium Chloride Carbon Dioxide Anion Gap BUN Creatinine Creat Clearance w eGFR POC Glucometer 81.66317 183.55520 159.00146 Random Glucose Calcium Phosphorus Magnesium Total Bilirubin AST ALT Alkaline Phosphatase Total Protein Albumin 04/13/17 04/13/17 04/13/17 11:26 16:37 21:50 WBC RBC Hgb Hct MCV MCHC RDW Plt Count MPV Neutrophils % Lymphocytes % Monocytes % Eosinophils % Basophils % Nucleated RBCs Hypersegmented Neuts Toxic Granulation Dohle Bodies Jose Rods Polychromasia Hypochromic-Microcytic Poikilocytosis Basophilic Stippling Anisocytosis Microcytosis Macrocytosis Spherocytes Siderocytes Sickle Cells Target Cells Tear Drop Cells Ovalocytes Stomatocytes Helmet Cells [place] Bodies [place] Rings Hatch Cells Acanthocytes (Spur) Rouleaux Fragmented RBCs Schistocytes Morphology Comment Sodium Potassium Chloride Carbon Dioxide Anion Gap BUN Creatinine Creat Clearance w eGFR POC Glucometer 145.74471 169.15146 171.85506 Random Glucose Calcium Phosphorus Magnesium Total Bilirubin AST ALT Alkaline Phosphatase Total Protein Albumin 04/14/17 04/14/17 05:30 05:30 WBC 6.9 RBC 2.84 L Hgb 8.1 L Hct 24.7 L MCV 86.9 MCHC 32.8 RDW 22.5 H Plt Count 114 L D MPV 8.0 Neutrophils % 79.1 Lymphocytes % 10.0 Monocytes % 7.5 Eosinophils % 2.4 Basophils % 1.0 Nucleated RBCs Cancelled Hypersegmented Neuts Cancelled Toxic Granulation Cancelled Dohle Bodies Cancelled Jose Rods Cancelled Polychromasia Cancelled Hypochromic-Microcytic Cancelled Poikilocytosis Cancelled Basophilic Stippling Cancelled Anisocytosis Cancelled Microcytosis Cancelled Macrocytosis Cancelled Spherocytes Cancelled Siderocytes Cancelled Sickle Cells Cancelled Target Cells Cancelled Tear Drop Cells Cancelled Ovalocytes Cancelled Stomatocytes Cancelled Helmet Cells Cancelled [place] Bodies Cancelled [place] Rings Cancelled Kin Cells Cancelled Acanthocytes (Spur) Cancelled Rouleaux Cancelled Fragmented RBCs Cancelled Schistocytes Cancelled Morphology Comment Cancelled Sodium 141 Potassium 3.9 Chloride 100 Carbon Dioxide 31 Anion Gap 10 BUN 32 H D Creatinine 3.3 H Creat Clearance w eGFR 18.22 POC Glucometer Random Glucose 126 H Calcium 8.3 L Phosphorus 2.9 D Magnesium 2.3 Total Bilirubin 0.9 D AST 16 ALT 7 L Alkaline Phosphatase 72 Total Protein 5.6 L Albumin 2.2 L Active Medications Generic Name Dose Route Start Last Admin Trade Name Freq PRN Reason Stop Dose Admin Amiodarone HCl 200 mg 04/08/17 10:43 04/13/17 09:09 Cordarone - PO 200 mg DAILY SARAH Administration Atorvastatin Calcium 80 mg 03/18/17 09:45 04/13/17 21:54 Lipitor - NGT 80 mg HS SARAH Administration Bacitracin 1 applic 04/06/17 18:45 04/13/17 09:09 Bacitracin - TP 1 applic DAILY SARAH Administration Chlorhexidine Gluconate 1 applic 03/17/17 22:00 04/13/17 21:53 Hibiclens For Decolonization - TP 1 applic HS SARAH Administration Chlorhexidine Gluconate 15 ml 03/18/17 22:15 04/13/17 21:54 Peridex - MM 15 ml BID SARAH Administration Furosemide 80 mg 03/30/17 14:00 04/14/17 06:23 Lasix Injection - IVPUSH 80 mg BID@0600,1400 SARAH Administration Insulin Aspart 1 vial 03/24/17 07:00 04/14/17 06:23 Novolog Vial Sliding Scale - SQ 2 units ACHS SARAH Administration Protocol Ranitidine HCl 150 mg 04/07/17 11:45 04/13/17 09:09 Zantac Oral Solution - NGT 150 mg DAILY SARAH Administration Scopolamine HBr 1 patch 04/03/17 22:00 04/12/17 23:00 Transderm-Scop - TD 1 patch Q3D@2200 SARAH Administration ASSESSMENT/PLAN: 76 yr old man with extensive cardiac and pulmonary history now with renal insufficiency s/p cardiac arrest. Neuro awake, talking, agitated this afternoon -given Morphine one dose Pulmonary s/p trach placement 04/02 f/u CXR Vented on volume assist control with 45% FiO2 Cardiovascular off levphed since yesterday, off Dopa maintain MAP >65 amiodarone 200mg po daily afib - paced rhythm (biventricular pacemaker) heparin restarted today HLD: lipitor 80mg HS PO f/u Cardiology consultation Infectious Disease wbc count trending down off abx today f/u ID recommendation Renal HD done yesterday, 3.2 kg taken off, no recommendation for HD today plans for scheduled dialysis MWF, 4h oliguiric renal insufficiency with volume overload s/p transfusion Hgb/hct, stable now continue lasix BID 80mg IVpb monitor elecrolytes, f/u nephrology consultation Hematological stable hgb/hct FOBT negative s/p epogen administeration GI no recommendation for PEG tube insertion due to pt's body habitus/risk on infection tube feeding; Glucerna 1.5 protonix daily for prophylaxis banana flakes daily for loose stools Endocrine cortisol level nl DM II, HgbA1c 6.4 Glucerna feeds DVT PPCX: restarted Heparin SQ 5000 TID Diet: tube feeding Disposition: The pt will go to LTAC tomorrow in AM Problem List - Problems (1) A-fib Code(s): I48.91 - UNSPECIFIED ATRIAL FIBRILLATION Qualifiers: Qualified Code(s): I48.91 - Unspecified atrial fibrillation (2) Acute on chronic diastolic CHF (congestive heart failure) Code(s): I50.33 - ACUTE ON CHRONIC DIASTOLIC (CONGESTIVE) HEART FAILURE (3) Anemia Code(s): D64.9 - ANEMIA, UNSPECIFIED (4) CKD (chronic kidney disease) Code(s): N18.9 - CHRONIC KIDNEY DISEASE, UNSPECIFIED Qualifiers: Qualified Code(s): N18.4 - Chronic kidney disease, stage 4 (severe) (5) Cardiac arrest Code(s): I46.9 - CARDIAC ARREST, CAUSE UNSPECIFIED (6) DVT prophylaxis Code(s): XGK1398 - (7) HTN (hypertension) Code(s): I10 - ESSENTIAL (PRIMARY) HYPERTENSION (8) Hyperkalemia Code(s): E87.5 - HYPERKALEMIA (9) Hyperlipidemia Code(s): E78.5 - HYPERLIPIDEMIA, UNSPECIFIED (10) 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 hypertension Code(s): I27.2 - OTHER SECONDARY PULMONARY HYPERTENSION (11) Sleep apnea Code(s): G47.30 - SLEEP APNEA, UNSPECIFIED Visit type - Emergency Visit Emergency Visit: Yes ED Registration Date: 03/17/17 Care time: The patient presented to the Emergency Department on the above date and was hospitalized for further evaluation of their emergent condition. - New Patient This patient is new to me today: No - Critical Care Critical Care patient: Yes Total Critical Care Time (in minutes): 40 Critical Care Statement: The care of this patient involved high complexity decision making to prevent further life threatening deterioration of the patient 's condition and/or to evalute & treat vital organ system(s) failure or risk of failure.
[2017-04-14] MEDS ORDERED: INSULIN (NOVOLOG) ASPART 100 UNITS/ML 10ML VIAL ONE (11:28)
--- NOTE | 2017-04-14 11:56 | PN ---
Teaching Attending Note Name of Resident: Fani Allison ATTENDING PHYSICIAN STATEMENT I saw and evaluated the patient. I reviewed the resident's note and discussed the case with the resident. I agree with the resident's findings and plan as documented. SUBJECTIVE: Pt seen and examined in the ICU. Vented, awake. Pressors tapered off. OBJECTIVE: Last Vital Signs Temp Pulse Resp BP Pulse Ox 98.2 F 80 32 H 101/88 100 04/14/17 06:00 04/14/17 09:35 04/14/17 09:15 04/14/17 08:00 04/14/17 09:35 Intake & Output 04/11/17 04/12/17 04/13/17 04/14/17 23:59 23:59 23:59 23:59 Intake Total 1358 1618.2 1230 590 Output Total 450 275 200 100 Balance 908 1343.2 1030 490 Weight 338 lb 6.4 oz 311 lb 15.265 oz 312 lb 15.265 oz 308 lb 15.265 oz Gen: vented, awake, breathing nonlabored Heart: RRR Lung: distant breath sounds Abd: soft, obese, nontender Ext: less edema CBC, BMP 04/14/17 05:30 04/14/17 05:30 Active Medications Amiodarone HCl (Cordarone -) 200 mg PO DAILY [facility] Last Admin: 04/14/17 10:52 Dose: 200 mg Atorvastatin Calcium (Lipitor -) 80 mg NGT HS [facility] Last Admin: 04/13/17 21:54 Dose: 80 mg Bacitracin (Bacitracin -) 1 applic TP DAILY [facility] Last Admin: 04/14/17 10:57 Dose: 1 applic Chlorhexidine Gluconate (Hibiclens For Decolonization -) 1 applic TP HS [facility] Last Admin: 04/13/17 21:53 Dose: 1 applic Chlorhexidine Gluconate (Peridex -) 15 ml MM BID [facility] Last Admin: 04/14/17 10:53 Dose: 15 ml Furosemide (Lasix Injection -) 80 mg IVPUSH BID@0600,1400 [facility] Last Admin: 04/14/17 06:23 Dose: 80 mg Heparin Sodium (Porcine) (Heparin -) 5,000 unit SQ Q8H-IV SARAH Insulin Aspart (Novolog Vial Sliding Scale -) 1 vial SQ ACHS [facility] PRN Reason: Protocol Last Admin: 04/14/17 11:29 Dose: 2 units Ranitidine HCl (Zantac Oral Solution -) 150 mg NGT DAILY [facility] Last Admin: 04/14/17 10:53 Dose: 150 mg Scopolamine HBr (Transderm-Scop -) 1 patch TD Q3D@2200 [facility] Last Admin: 04/12/17 23:00 Dose: 1 patch ASSESSMENT AND PLAN: s/p Vfib Cardiac Arrest Acute on Chronic Hypoxic Respiratory Failure s/p Tracheostomy Acute on Chronic Diastolic Heart Failure Severe Pulmonary HTN s/p BiV PPM CAD +Troponins Atrial Fibrillation HTN CKD Hyperlipidemia DM COPD Morbid Obesity Obstructive Sleep Apnea Anemia - s/p antibiotic course - keep K>4, Mg>2 - continue amiodarone - monitor H/H - would resume anticoagulation - HD per renal - lasix boluses - monitoring off levophed gtt, maintain MAP >65 - monitor urine output, creatinine - HD per renal - taper FiO2 to keep SpO2 >90% - spontaneous breathing trials as tolerated - enteral feeds - DVT/GI prophylaxis - awaiting LTAC placement critical care time spent in reviewing chart, evaluating patient and formulating plan 40 min
[2017-04-14] MEDS: HEPARIN NA (PORCINE) 5,000 UNITS/ML 1ML VIAL SQ SCH ×2 (12:34→14:53)
--- NOTE | 2017-04-14 12:52 | PATH ---
Surgical Pathology Report Patient Name: LISSY CREWS Med. Rec. #: [id number] /Age/Gender: 1940 (Age: 76) / M Account: [id number] Location: ICU IN [facility]CHO[facility] SUSPENSION COORDINATOR Taken: 04/09/2017 Received: 04/10/2017 Reported: 04/14/2017 Physicians: Paul Santoro M.D. Specimen(s) Received OLD PERMACATH Clinical History ESRD Final Diagnosis OLD PERMACATH, REMOVAL: FEATURES EDITOR (GROSS EXAM). Electronically Signed Damaso Garcia M.D. Gross Description Received fresh labeled "old permacath" is a 29 cm in length triple lumen catheter. No soft tissue is present. No sections are submitted, gross only. /04/10/201704/10/2017
--- NOTE | 2017-04-14 13:02 | PN ---
Progress Note, Physician Chief Complaint: Pt is agitated. History of Present Illness: The patient is a 76 year old black male, with a significant past medical history of diastolic CHF with severe systolic RV dysfunction, HTN, HLD, Atrial Fibrillation, Morbid obesity, Prostate CA, Sleep apnea on O2, Glaucoma BIBA from [facility] s/p Cardiac arrest. As per EMS, the patient was initially seated in PT doing leg exercises when he became unresponsive. Patient was brought back into his room in the DC and chest compressions were initiated by nursing staff. Down time was between 4-5 minutes. patient was shocked once and ROSC was noted. As per EMS, patient was given 150 mg of Amiodarone in field and was brought into the ED for further evaluation. Upon arrival to the ED, patients (health care proxy) gave consent to intubate over the telephone. 2:48 PM- 20 mg of Etomidate given through IV 2:49 PM- 150 mg of Succinylcholine given through IV 2:50 PM- Patient intubated with 7.5 ET tube, positioned 24 cm at the lip - Current Medication List Current Medications: Active Medications Amiodarone HCl (Cordarone -) 200 mg PO DAILY [facility] Last Admin: 04/14/17 10:52 Dose: 200 mg Atorvastatin Calcium (Lipitor -) 80 mg NGT HS [facility] Last Admin: 04/13/17 21:54 Dose: 80 mg Bacitracin (Bacitracin -) 1 applic TP DAILY [facility] Last Admin: 04/14/17 10:57 Dose: 1 applic Chlorhexidine Gluconate (Hibiclens For Decolonization -) 1 applic TP HS [facility] Last Admin: 04/13/17 21:53 Dose: 1 applic Chlorhexidine Gluconate (Peridex -) 15 ml MM BID [facility] Last Admin: 04/14/17 10:53 Dose: 15 ml Furosemide (Lasix Injection -) 80 mg IVPUSH BID@0600,1400 [facility] Last Admin: 04/14/17 06:23 Dose: 80 mg Heparin Sodium (Porcine) (Heparin -) 5,000 unit SQ TID [facility] Insulin Aspart (Novolog Vial Sliding Scale -) 1 vial SQ ACHS [facility] PRN Reason: Protocol Last Admin: 04/14/17 11:29 Dose: 2 units Ranitidine HCl (Zantac Oral Solution -) 150 mg NGT DAILY [facility] Last Admin: 04/14/17 10:53 Dose: 150 mg Scopolamine HBr (Transderm-Scop -) 1 patch TD Q3D@2200 [facility] Last Admin: 04/12/17 23:00 Dose: 1 patch - Objective Vital Signs: Vital Signs Temperature 98.2 F 04/14/17 06:00 Pulse Rate 80 04/14/17 09:35 Respiratory Rate 25 H 04/14/17 12:05 Blood Pressure 101/88 04/14/17 08:00 O2 Sat by Pulse Oximetry (%) 100 04/14/17 09:35 Constitutional: Yes: Anxious Eyes: Yes: WNL HENT: Yes: WNL Neck: Yes: Decreased ROM, Other Cardiovascular: Yes: Regular Rate and Rhythm, S2 (split), Other (ventricular pacing) Labs: CBC, BMP 04/14/17 05:30 04/14/17 05:30 INR, PTT INR 1.37 (0.82-1.09) H 04/07/17 06:25 Problem List - Problems (1) Cardiac arrest Assessment/Plan: On amiodarone 200 mg daily. He has been off pressors x 48 hourx Code(s): I46.9 - CARDIAC ARREST, CAUSE UNSPECIFIED (2) Acute on chronic diastolic CHF (congestive heart failure) Assessment/Plan: see under "cardiac arrest'. Code(s): I50.33 - ACUTE ON CHRONIC DIASTOLIC (CONGESTIVE) HEART FAILURE (3) Hyperlipidemia Assessment/Plan: high-dose statin. Code(s): E78.5 - HYPERLIPIDEMIA, UNSPECIFIED (4) Sleep apnea Assessment/Plan: s/p tracheostomy Code(s): G47.30 - SLEEP APNEA, UNSPECIFIED (5) HTN (hypertension) Code(s): I10 - ESSENTIAL (PRIMARY) HYPERTENSION (6) 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 hypertension Assessment/Plan: Hx COPD; severe RV failure. White-out of left lung; mild improvement. F/u Is and Os. F/u c/s. S/p tracheostomy; remains ventrilator-dependent. On amiodarone (reduced to 200 mg daily). Code(s): I27.2 - OTHER SECONDARY PULMONARY HYPERTENSION (7) Hyperkalemia Code(s): E87.5 - HYPERKALEMIA (8) Anemia Code(s): D64.9 - ANEMIA, UNSPECIFIED (9) Acute on chronic renal failure Code(s): N17.9 - ACUTE KIDNEY FAILURE, UNSPECIFIED N18.9 - CHRONIC KIDNEY DISEASE, UNSPECIFIED Assessment/Plan CC time spent reviewing record, examining pt, writing note: 45 minutes
[2017-04-14] MEDS ORDERED: morphine CARPU-JECT 2 MG/1 ML DISP.SYRIN IVPUSH ONE (13:12)
[2017-04-14] MEDS ORDERED: PT OWN MED DRAWER 7, Y5N ONE (14:51)
--- NOTE | 2017-04-14 15:01 | PN ---
Teaching Attending Note Name of Resident: Cleve Bourgeois ATTENDING PHYSICIAN STATEMENT I saw and evaluated the patient. I reviewed the resident's note and discussed the case with the resident. I agree with the resident's findings and plan as documented. SUBJECTIVE: Patient is awake and able to communicate well, Off Levophed drip, IN ICU OBJECTIVE: Vital Signs Temperature 98.2 F 04/14/17 06:00 Pulse Rate 80 04/14/17 09:35 Respiratory Rate 28 H 04/14/17 14:15 Blood Pressure 101/88 04/14/17 08:00 O2 Sat by Pulse Oximetry (%) 100 04/14/17 09:35 CBCD WBC 6.9 K/mm3 (4.0-10.0) 04/14/17 05:30 RBC 2.84 M/mm3 (4.00-5.60) L 04/14/17 05:30 Hgb 8.1 GM/dL (11.7-16.9) L 04/14/17 05:30 Hct 24.7 % (35.4-49) L 04/14/17 05:30 MCV 86.9 fl (80-96) 04/14/17 05:30 MCHC 32.8 g/dl (32.0-35.9) 04/14/17 05:30 RDW 22.5 % (11.9-15.9) H 04/14/17 05:30 Plt Count 114 K/MM3 (134-434) L D 04/14/17 05:30 MPV 8.0 fl (7.5-11.1) 04/14/17 05:30 CMP Sodium 141 mmol/L (136-145) 04/14/17 05:30 Potassium 3.9 mmol/L (3.5-5.1) 04/14/17 05:30 Chloride 100 mmol/L (98-107) 04/14/17 05:30 Carbon Dioxide 31 mmol/L (21-32) 04/14/17 05:30 Anion Gap 10 (8-16) 04/14/17 05:30 BUN 32 mg/dL (7-18) H D 04/14/17 05:30 Creatinine 3.3 mg/dL (0.7-1.3) H 04/14/17 05:30 Creat Clearance w eGFR 18.22 (>60) 04/14/17 05:30 Random Glucose 126 mg/dL (74-106) H 04/14/17 05:30 Calcium 8.3 mg/dL (8.5-10.1) L 04/14/17 05:30 Total Bilirubin 0.9 mg/dL (0.2-1.0) D 04/14/17 05:30 AST 16 U/L (15-37) 04/14/17 05:30 ALT 7 U/L (12-78) L 04/14/17 05:30 Alkaline Phosphatase 72 U/L (45-117) 04/14/17 05:30 Total Protein 5.6 g/dl (6.4-8.2) L 04/14/17 05:30 Albumin 2.2 g/dl (3.4-5.0) L 04/14/17 05:30 CARDIAC ENZYMES Creatine Kinase 146 IU/L (39-308) 03/18/17 10:23 Troponin I 0.16 ng/ml (0.00-0.05) H D 03/18/17 10:23 Current Medications Generic Name Dose Route Start Last Admin Trade Name Freq PRN Reason Stop Dose Admin Amiodarone HCl 200 mg 04/08/17 10:43 04/14/17 10:52 Cordarone - PO 200 mg DAILY SARHA Administration Atorvastatin Calcium 80 mg 03/18/17 09:45 04/13/17 21:54 Lipitor - NGT 80 mg HS SARAH Administration Bacitracin 1 applic 04/06/17 18:45 04/14/17 10:57 Bacitracin - TP 1 applic DAILY SARAH Administration Chlorhexidine Gluconate 1 applic 03/17/17 22:00 04/13/17 21:53 Hibiclens For Decolonization - TP 1 applic HS SARAH Administration Chlorhexidine Gluconate 15 ml 03/18/17 22:15 04/14/17 10:53 Peridex - MM 15 ml BID SARAH Administration Furosemide 80 mg 03/30/17 14:00 04/14/17 14:53 Lasix Injection - IVPUSH 80 mg BID@0600,1400 SARAH Administration Heparin Sodium (Porcine) 5,000 unit 04/14/17 12:30 04/14/17 14:53 Heparin - SQ 5,000 unit TID SARAH Administration Insulin Aspart 1 vial 03/24/17 07:00 04/14/17 11:29 Novolog Vial Sliding Scale - SQ 2 units ACHS SARAH Administration Protocol Ranitidine HCl 150 mg 04/07/17 11:45 04/14/17 10:53 Zantac Oral Solution - NGT 150 mg DAILY SARAH Administration Scopolamine HBr 1 patch 04/03/17 22:00 04/12/17 23:00 Transderm-Scop - TD 1 patch Q3D@2200 SARAH Administration Home Medications Medication Instructions Recorded Allopurinol 300 mg PO DAILY 03/17/17 Ferrous Sulfate 650 mg PO BID 03/17/17 Latanoprost 0.005% Eye Drops 1 drop OU HS 03/17/17 [Xalatan 0.005% Eye Drops -] Nystatin Cream [Mycostatin Cream -] 1 applic TP BID 03/17/17 Simvastatin [Zocor -] 80 mg PO HS 03/17/17 Sod Lactate/Amm Lact/Pot Lact 1 applic TP BID 03/17/17 [Amlactin Ultra Body Cream] Triamcinolone 0.1% Cream 1 applic TP BID 03/17/17 [Aristocort 0.1% Cream -] Amiodarone HCl [Cordarone -] 200 mg PO DAILY tablet 04/10/17 Atorvastatin Ca [Lipitor] 80 mg NGT HS tablet 04/10/17 Bacitracin - [Bacitracin Topical 1 applic TP DAILY tube 04/10/17 Ointment -] Furosemide Injection [Lasix 80 mg IVPUSH BID@0600,1400 vial 04/10/17 Injection -] Norepinephrine Bitartrate 8,000 mcg IV TITR ml 04/10/17 [Levophed Bitartrate -] ASSESSMENT AND PLAN: 76 y/o man with h/o Severe cardiomypathy( non ischemic ) ,with severely reduced EF, and PULm HTN, Diastolic dysfunction , A fib on AC, who presented with cardiac arrest (V fib ) from his [facility] # Acute hypoxic respiratory failure s/p Intubation s/p trach on 04/02/17. Off Levophed drip now, BP is stable, Patient is accepted to [place]([facility]) , getting discharged today .No peg tube for now since it's high risk due to having distended belly. Positive for NG tube now for feeding. # S/P cardiac arrest s/p hypothermic protocol: due to severe Right sided cardiomyopathy ,with Severe non-ischemic cardiomypoathy, patient has a defibrillator ,was interrogated on admission .OFF levophed ggt , continue po Amio. # Acute on Chronic renal Failure with ESRD now on HD s/p permacath at the right side, continue HD as per nephro. # sputum with MRSA s/p Vancomycin # Acute on chronic systolic and diastolic heart failure off lasix gtt. on IV LAsix now # A fib: rate is controlled on AMIODORAN CONTINUE DVT px :DVT px :Off heparin drip due to having bleeding complications from trach site.
--- NOTE | 2017-04-14 16:19 | PN ---
Physical Exam: SUBJECTIVE: Patient seen and examined OBJECTIVE: Vital Signs Period Temp Pulse Resp BP Sys/Krishnan Pulse Ox Last 24 Hr 98.2 F-98.4 F 74-98 18-35 87-127/51-88 100-100 GENERAL: The patient is awake, alert, and fully oriented, in no acute distress. HEAD: Normal with no signs of trauma. EYES: PERRL, extraocular movements intact, sclera anicteric, conjunctiva clear. No ptosis. ENT: Ears normal, nares patent, oropharynx clear without exudates, moist mucous membranes. NECK: Trachea midline, full range of motion, supple. LUNGS: Breath sounds equal, clear to auscultation bilaterally, no wheezes, no crackles, no accessory muscle use. HEART: Regular rate and rhythm, S1, S2 without murmur, rub or gallop. ABDOMEN: Soft, nontender, nondistended, normoactive bowel sounds, no guarding, no rebound, no hepatosplenomegaly, no masses. EXTREMITIES: 2+ pulses, warm, well-perfused, no edema. NEUROLOGICAL: Cranial nerves II through XII grossly intact. Normal speech, gait not observed. PSYCH: Normal mood, normal affect. SKIN: Warm, dry, normal turgor, no rashes or lesions noted Laboratory Results - last 24 hr 04/11/17 04/11/17 04/13/17 17:03 17:05 16:37 WBC RBC Hgb Hct MCV MCHC RDW Plt Count MPV Neutrophils % Lymphocytes % Monocytes % Eosinophils % Basophils % Nucleated RBCs Hypersegmented Neuts Toxic Granulation Dohle Bodies Jose Rods Polychromasia Hypochromic-Microcytic Poikilocytosis Basophilic Stippling Anisocytosis Microcytosis Macrocytosis Spherocytes Siderocytes Sickle Cells Target Cells Tear Drop Cells Ovalocytes Stomatocytes Helmet Cells Arevalo-Vilas Bodies [place] Rings Kin Cells Acanthocytes (Spur) Rouleaux Fragmented RBCs Schistocytes Morphology Comment Sodium Potassium Chloride Carbon Dioxide Anion Gap BUN Creatinine Creat Clearance w eGFR POC Glucometer [phone] Random Glucose Calcium Phosphorus Magnesium Total Bilirubin AST ALT Alkaline Phosphatase Total Protein Albumin 04/13/17 04/14/17 04/14/17 21:50 05:30 05:30 WBC 6.9 RBC 2.84 L Hgb 8.1 L Hct 24.7 L MCV 86.9 MCHC 32.8 RDW 22.5 H Plt Count 114 L D MPV 8.0 Neutrophils % 79.1 Lymphocytes % 10.0 Monocytes % 7.5 Eosinophils % 2.4 Basophils % 1.0 Nucleated RBCs Cancelled Hypersegmented Neuts Cancelled Toxic Granulation Cancelled Dohle Bodies Cancelled Jose Rods Cancelled Polychromasia Cancelled Hypochromic-Microcytic Cancelled Poikilocytosis Cancelled Basophilic Stippling Cancelled Anisocytosis Cancelled Microcytosis Cancelled Macrocytosis Cancelled Spherocytes Cancelled Siderocytes Cancelled Sickle Cells Cancelled Target Cells Cancelled Tear Drop Cells Cancelled Ovalocytes Cancelled Stomatocytes Cancelled Helmet Cells Cancelled Arevalo-Vilas Bodies Cancelled [place] Rings Cancelled [place] Cells Cancelled Acanthocytes (Spur) Cancelled Rouleaux Cancelled Fragmented RBCs Cancelled Schistocytes Cancelled Morphology Comment Cancelled Sodium 141 Potassium 3.9 Chloride 100 Carbon Dioxide 31 Anion Gap 10 BUN 32 H D Creatinine 3.3 H Creat Clearance w eGFR 18.22 POC Glucometer [phone] Random Glucose 126 H Calcium 8.3 L Phosphorus 2.9 D Magnesium 2.3 Total Bilirubin 0.9 D AST 16 ALT 7 L Alkaline Phosphatase 72 Total Protein 5.6 L Albumin 2.2 L 04/14/17 04/14/17 05:34 11:25 WBC RBC Hgb Hct MCV MCHC RDW Plt Count MPV Neutrophils % Lymphocytes % Monocytes % Eosinophils % Basophils % Nucleated RBCs Hypersegmented Neuts Toxic Granulation Dohle Bodies Jose Rods Polychromasia Hypochromic-Microcytic Poikilocytosis Basophilic Stippling Anisocytosis Microcytosis Macrocytosis Spherocytes Siderocytes Sickle Cells Target Cells Tear Drop Cells Ovalocytes Stomatocytes Helmet Cells Arevalo-Vilas Bodies [place] Rings Kin Cells Acanthocytes (Spur) Rouleaux Fragmented RBCs Schistocytes Morphology Comment Sodium Potassium Chloride Carbon Dioxide Anion Gap BUN Creatinine Creat Clearance w eGFR POC Glucometer [phone] Random Glucose Calcium Phosphorus Magnesium Total Bilirubin AST ALT Alkaline Phosphatase Total Protein Albumin Active Medications Generic Name Dose Route Start Last Admin Trade Name Freq PRN Reason Stop Dose Admin Amiodarone HCl 200 mg 04/08/17 10:43 04/14/17 10:52 Cordarone - PO 200 mg DAILY SARAH Administration Atorvastatin Calcium 80 mg 03/18/17 09:45 04/13/17 21:54 Lipitor - NGT 80 mg HS SARAH Administration Bacitracin 1 applic 04/06/17 18:45 04/14/17 10:57 Bacitracin - TP 1 applic DAILY SARAH Administration Chlorhexidine Gluconate 1 applic 03/17/17 22:00 04/13/17 21:53 Hibiclens For Decolonization - TP 1 applic HS SARAH Administration Chlorhexidine Gluconate 15 ml 03/18/17 22:15 04/14/17 10:53 Peridex - MM 15 ml BID SARAH Administration Furosemide 80 mg 03/30/17 14:00 04/14/17 14:53 Lasix Injection - IVPUSH 80 mg BID@0600,1400 SARAH Administration Heparin Sodium (Porcine) 5,000 unit 04/14/17 12:30 04/14/17 14:53 Heparin - SQ 5,000 unit TID SARAH Administration Insulin Aspart 1 vial 03/24/17 07:00 04/14/17 11:29 Novolog Vial Sliding Scale - SQ 2 units ACHS SARAH Administration Protocol Ranitidine HCl 150 mg 04/07/17 11:45 04/14/17 10:53 Zantac Oral Solution - NGT 150 mg DAILY SARAH Administration Scopolamine HBr 1 patch 04/03/17 22:00 04/12/17 23:00 Transderm-Scop - TD 1 patch Q3D@2200 SARAH Administration ASSESSMENT/PLAN: Problem List - Problems (1) Cardiac arrest (2) Positive culture findings in sputum (3) Acute on chronic diastolic CHF (congestive heart failure) (4) CKD (chronic kidney disease) (5) A-fib (6) DVT prophylaxis
[2017-04-14 17:00] VITALS: TEMP 98.9
[2017-04-14 17:01] VITALS: BP 102/65; PULSE 88
== END 2017-04-14 17:43 | disposition short-term general hospital (02) | DRG 4 ==
LOC: JER 14:33 → JERBED 16:28 → JICU 18:40
PROVIDERS: ADMIT Internal Medicine; ATTEND Internal Medicine
PROC: 5A1955Z Respiratory Ventilation, Greater than 96 Consecutive Hours (ICD-10-PCS; 2017-03-17)
PROC: 5A1D00Z (ICD-10-PCS; 2017-03-27)
PROC: 0BJ18ZZ Inspection of Trachea, Via Natural or Artificial Opening Endoscopic (ICD-10-PCS; 2017-04-02)
PROC: 0BH17EZ Insertion of Endotracheal Airway into Trachea, Via Natural or Artificial Opening (ICD-10-PCS; 2017-04-02)
PROC: 0B1 Respiratory System, Bypass (ICD-10-PCS; principal; 2017-04-02 09:00)
PROC: 05HM33Z Insertion of Infusion Device into Right Internal Jugular Vein, Percutaneous Approach (ICD-10-PCS; 2017-04-06)
PROC: 30233R1 Transfusion of Nonautologous Platelets into Peripheral Vein, Percutaneous Approach (ICD-10-PCS; 2017-04-06)
PROC: 30233N1 Transfusion of Nonautologous Red Blood Cells into Peripheral Vein, Percutaneous Approach (ICD-10-PCS; 2017-04-08)
PROC: 05HN33Z Insertion of Infusion Device into Left Internal Jugular Vein, Percutaneous Approach (ICD-10-PCS; 2017-04-09)
DX: J96.01 Acute respiratory failure with hypoxia (principal); I46.9 Cardiac arrest, cause unspecified; N18.6 End stage renal disease; I50.43 Acute on chronic combined systolic (congestive) and diastolic (congestive) heart failure; J15.212 Pneumonia due to Methicillin resistant Staphylococcus aureus; N17.9 Acute kidney failure, unspecified; Z68.42 Body mass index [BMI] 45.0-49.9, adult; I13.2 Hypertensive heart and chronic kidney disease with heart failure and with stage 5 chronic kidney disease, or end stage renal disease; J95.851 Ventilator associated pneumonia; I42.8 Other cardiomyopathies; E87.1 Hypo-osmolality and hyponatremia; J98.11 Atelectasis; E66.01 Morbid (severe) obesity due to excess calories; G47.30 Sleep apnea, unspecified; I48.91 Unspecified atrial fibrillation; I27.2 Other secondary pulmonary hypertension; Z95.0 Presence of cardiac pacemaker; J44.9 Chronic obstructive pulmonary disease, unspecified; Z99.3 Dependence on wheelchair; E78.5 Hyperlipidemia, unspecified; E87.5 Hyperkalemia; I36.1 Nonrheumatic tricuspid (valve) insufficiency; E83.39 Other disorders of phosphorus metabolism; D64.9 Anemia, unspecified; R60.1 Generalized edema
CPT/HCPCS: 36415; 36430; 36511; 36600; 70450-TC; 71010-TC; 76000-TC; 76700-TC; 76775-TC; 80048; 80053; 80061; 80162; 80307; 81003; 82272; 82533; 82550; 82803; 83036; 83605; 83721; 83735; 83880; 84100; 84443; 84484; 85025; 85027; 85610; 85730; 86704; 86706; 86708; 86803; 86850; 86900; 86901; 86922; 87040; 87070; 87086; 87186; 87205; 87324; 87340; 87449; 88300-TC; 93005; 93010; 93306-TC; 93970-TC; 94002; 99285-25; G0480; J0885; J1644; J2597; P9034; P9038; P9047; P9058